=== PATIENT | male | born 1970 | race Caucasian/White ===

== ENCOUNTER → 2017-09-13 15:32 | Outpatient (CLI) | payer MEDICARE, SELFPAY ==
--- NOTE | 2017-09-13 16:02 | MRI_ITS ---
STUDY: MRI LEFT SHOULDER REASON FOR EXAM: Male, 46 years old. chronic pain, decreased rom TECHNIQUE: Standardized fat and water weighted pulse sequences were obtained in all 3 orthogonal planes. COMPARISON: MRI January 30, 2009, x-ray July 08, 2016 FINDINGS: There is a partial-thickness articular surface tear of the anterior supraspinatus tendon insertion. There is an interstitial tear of the mid and posterior tendon. Normal infraspinatus tendon. Normal subscapularis tendon. Normal teres minor tendon. Normal supraspinatus muscle. Normal infraspinatus muscle. Normal subscapularis muscle. Normal teres minor muscle. Normal glenohumeral articulation. Normal humeral head and visualized proximal humerus. Normal biceps labral complex. Normal intracapsular long biceps tendon. Normal labrum. Normal capsulo- ligamentous complex. Normal rotator interval. There is mild osteoarthritis of the acromioclavicular articulation. There is a Type I morphology (flat undersurface), with a neutral orientation. There is no subacromial-subdeltoid bursal fluid. Normal visualized coracohumeral and coracoacromial ligaments. Normal quadrilateral space. Normal axillary space. Normal deltoid muscle. Normal trapezius muscle. MRI/Upper Ext Joint Only(Routine) IMPRESSION: There are partial-thickness and interstitial tears of the supraspinatus tendon. There is mild acromioclavicular joint degenerative arthrosis. There is a type I acromion. Electronically Signed: Renee Kimball MD at 10:35 EDT , Service support ,
== END ==
PROVIDERS: Family Provider Family Medicine; PCP Family Medicine; Visit Provider Orthopaedic Surgery
DX: M75.42 Impingement syndrome of left shoulder (principal)
CPT/HCPCS: 73221

== ENCOUNTER 2018-09-13 20:29 | Inpatient (IN) | payer MEDICARE, MEDICAID, SELFPAY ==
[2018-09-13 20:29] VITALS: BP 133/85; PULSE 110; RESP 18; TEMP 37.2; O2SAT 99; BMI 28.7
--- NOTE | 2018-09-13 20:40 | EKG12_ITS ---
Test Reason : CHEST PAIN Blood Pressure : / mmHG Vent. Rate : 089 BPM Atrial Rate : 089 BPM P-R Int : 134 ms QRS Dur : 084 ms QT Int : 352 ms P-R-T Axes : 048 -02 063 degrees QTc Int : 428 ms Normal sinus rhythm with sinus arrhythmia Normal ECG Confirmed by BIANKA LEGGETT, AMIE ([id number]), editor farm journal ITALIA JORDAN ([id number]) on 09/15/2018 11:24:44 AM Referred By: Marcie London Confirmed By:AMIE CARLTON MD
[2018-09-13 21:14] LABS: Absolute Lymphocyte Count 1.54 X10^3/ul (0.83-4.51); Absolute Neutrophil Count 21.8 X10^3/uL (2.0-7.7); Basophil# 0.03 X10^3/uL; Basophil% 0.1 % (0-1); Differential Indicated SCAN CRITERIA MET; Eosinophil# 0.04 X10^3/uL; Eosinophils% 0.2 % (0-5); Hematocrit 52.6 % (40-54); Hemoglobin 17.6 g/dl (13.0-16.5); Lymphocyte # 1.54 X10^3/ul (4.0); Lymphocyte % 6.4 % (19-41); Mean Corp Hgb Conc 33.5 g/gl (32-36); Mean Corpuscular Hgb 30.4 pg (27.0-32.0); Mean Corpuscular Volume 90.8 fL (80-94); Mean Platelet Vol. 11.7 fl (6.2-12.0); Monocyte# 0.69 X10^3/uL; Monocyte% 2.9 % (0-10); Neutrophil # 21.75 X10^3/uL (2.7-7.7); Neutrophil % 89.9 % (47-70); POSITIVE COUNT NO; POSITIVE DIFFERENTIAL YES; POSITIVE MORPHOLOGY NO; Platelet Count 154 K/mm3 (150-450); RBC Distribution Width SD 42.4 fl (35.1-43.9); Red Blood Count 5.79 M/mm3 (4.6-6.2); White Blood Count 24.2 K/mm3 (4.4-11.0)
[2018-09-13 21:23] LABS: Anion Gap 12 (5-15); BUN 20 mg/dL (7-18); BUN/Creat Ratio 16.8 RATIO (10-20); Calcium,Total 9.2 mg/dL (8.5-10.1); Chloride 102 mmol/L (98-107); Creatinine, Serum 1.19 mg/dL (0.70-1.30); EST Glomerular Filtration Rate 70 mL/min (>60); Est Glom Filt Rate - Afr Amer 84 mL/min (>60); Estimated Creatinine Clearance 80.09 ml/min; Glucose 337 mg/dL (74-106); Potassium 4.3 mmol/L (3.5-5.1); Sodium Level 138 mmol/L (136-145)
[2018-09-13 21:46] LABS: Differential Comment SCANNED
--- NOTE | 2018-09-13 22:10 | RAD_ITS ---
STUDY: X-RAY CHEST REASON FOR EXAM: Male, 47 years old. Chest pain. TECHNIQUE: Portable chest. COMPARISON: None. FINDINGS: The lungs are clear and expanded. There is no demonstrated pleural abnormality. Normal size heart. Normal mediastinum and oseas. Normal visualized pulmonary arteries. Normal visualized aortic arch and descending thoracic aorta. Normal visualized thoracic spine. Normal visualized ribs, clavicles, and shoulders. There is no demonstrated abnormality of the visualized soft tissue structures of the upper abdomen. RAD/Chest 1 View (Portable) IMPRESSION: Normal x-ray examination of the chest. Electronically Signed: Teresa Patel MD at 22:39 EDT Tel , Service support ,
--- NOTE | 2018-09-13 22:18 | ED.VISSUMM ---
- ER Visit Summary Date of Service: 09/13/18 Chief Complaint: [Chest pain] History of Present Illness: The patient is a 47 M [presents the emergency department complaint chest pain off and on for several months. Patient states he has a history of some chronic neck pain issues and he is medicated with Dilaudid and Doxy Contin at home. Patient has had intermittent spells that he has chest heaviness with radiation into the neck and jaw as well as down both arms. Patient at times will be diaphoretic and nauseated with it. Patient does have a history of diabetes, hypercholesterolemia, and significant family history in that his father had an RI in his 30s. Patient also with history of prior A. fib. He denies recent travel or surgery. Recently patient had started a Medrol Dosepak for his neck pain.] Physical Examination: [HEENT-PERRLA, EOMI. Cranial nerves II through XII grossly intact. TMs clear. Mucous membranes moist. No adenopathy. Cardiovascular-regular rate and rhythm without murmur or ectopy Lungs-clear to auscultation, chest wall stable without crepitus or subcu emphysema Abdomen-normoactive bowel sounds, soft, nontender, no rebound or rigidity, no peritoneal signs. Extremities-intact ?4, normal range of motion, normal pulses, atraumatic] Test Results: [EKG on arrival showed sinus rhythm with a ventricular rate of 89 bpm with no acute I segment changes. CBC with differential showed a white blood cell count of 24,000, hemoglobin 17.6, hematocrit 53, platelets 154. History is unremarkable. Glucose was 337. Troponin is 0.218. Chest x-ray shows nothing acute.] Emergency Department Course and Treatment: [Patient was given aspirin and after discussion with Dr. Martinez, patient was started on heparin drip.] Treatment Plan: [Admit] Disposition: [Admit] Impression: [Non-ST elevation RI Chest pain Hyperglycemia] This note was generated with [employer] dictation software. It may contain incorrect words, spelling, and punctuation that were not noted in review of the chart prior to signing ED Disposition - Plan for ED Patient: Referrals: Debra Fabian [Primary Care Provider] -
--- NOTE | 2018-09-13 22:22 | ED.DCSUM_ITS ---
- ER Visit Summary Date of Service: 09/13/18 Chief Complaint: [Chest pain] History of Present Illness: The patient is a 47 M [presents the emergency department complaint chest pain off and on for several months. Patient states he has a history of some chronic neck pain issues and he is medicated with Dilau did and Doxy Contin at home. Patient has had intermittent spells that he has chest heaviness with radiation into the neck and jaw as well as down both arms. Patient at times will be diaphoretic and nauseated with it. Patient does have a history of diabetes, hypercholesterolemia, and significant family history in that his father had an AZ in his 30s. Patient also with history of prior A. fib. He denies recent travel or surgery. Recently patient had started a Medrol Dosepak for his neck pain.] Physical Examination: [HEENT-PERRLA, EOMI. Cranial nerves II through XII g rossly intact. TMs clear. Mucous membranes moist. No adenopathy. Cardiovascular-regular rate and rhythm without murmur or ectopy Lungs-clear to auscultation, chest wall stable without crepitus or subcu emphysema Abdomen-normoactive bowel sounds, soft, nontender, no rebound or rigidity, no peritoneal signs. Extremities-intact ?4, normal range of motion, normal pulses, atraumatic] Test Results: [EKG on arrival showed sinus rhythm with a ventricular rate of 89 bpm with no acute I segment changes. CBC with differential showed a white blood cell count of 24,000, hemoglobin 17.6, hematocrit 53, platelets 154. History is unremarkable. Glucose was 337. Troponin is 0.218. Chest x-ray shows nothing acute.] Emergency Department Course and Treatment: [Patient was given aspirin and after discussion with Dr. Martinez, patient was started on heparin drip.] Treatment Plan: [Admit] Disposition: [Admit] Impression: [Non-ST elevation AZ Chest pain Hyperglycemia] This note was generated with [employer] dictation software. It may contain incorrect words, spelling, and punctuation that were not noted in review of the chart prior to signing ED Disposition - Plan for ED Patient: Referrals: Debra Fabian [Primary Care Provider] -
--- NOTE | 2018-09-13 22:22 | PCM.HP.STD ---
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 use Diabetes mellitus complication status: with unspecified complications Qualified Code(s): E11.8 - Type 2 diabetes mellitus with unspecified complications (7) HLD (hyperlipidemia) Status: Chronic Qualifiers: Hyperlipidemia type: pure hypercholesterolemia Qualified Code(s): E78.00 - Pure hypercholesterolemia, unspecified; E78.0 - Pure hypercholesterolemia History of Present Illness Date of Admission: 09/13/18 Chief Complaint: Chest pain The patient is a 47 y/o M w/ PMHx: Diabetes mellitus type II, HTN, HLD, History of PAF not anticoagulated, Chronic back pain following w/ pain management, History of AMITA not on CPAP w/ history of improvement following weight loss, Tobacco use who presents to the [facility] ED on 09/13/18 with ~ 2 month history of progressively worsening in both intensity and frequency intermittent chest pressure/heaviness episodes, independent of activity, midsternal with radiation to the BL UE and jaw with associated diaphoresis, nausea without emesis with two episodes on day of ED presentation, rated 8-9/19 in severity. Upon evaluation patient noted current discomfort 4-5/10. He had recently been evaluated per his physician as he felt his discomfort might be secondary to acute on chronic back pain and was placed on a Medrol Dosepak. Additional ED work-up included T 99, heart rate 110, BP 133/85, respiratory rate 18, 99% on room air, CBC with WBC 24.2, heme globin 17.6, platelet 154 with left shift with as noted recent steroid Medrol Dosepak, unremarkable coags, BMP remarkable for BUN/Cr 20/1.19, glucose 337, troponin 0.218, EKG with sinus rhythm with no acute evidence of ischemia with repeat EKG similar, chest x-ray with no acute cardiopulmonary findings. Given family history, age and presentation of concern cardiology was consulted per the ED for UA, NSTEMI and requested heparin drip be initiated. Past Medical History Past Medical History (Chronic Problems): Chronic Problems (Last Reviewed 09/15/17 @ 12:58 by Sarah Ordonez) Anxiety and depression (Chronic) Tobacco use (Chronic) Benign essential HTN (Chronic) Chronic pain (Chronic) Depression (Chronic) DM2 (diabetes mellitus, type 2) (Chronic) HLD (hyperlipidemia) (Chronic) Medical History: Medical History (Last Reviewed 09/15/17 @ 12:58 by Sarah Ordonez) Herniated disc back Allergies pregabalin [From Lyrica] Adverse Reaction (Verified 09/13/18 20:31) Itching Home Medications: Ambulatory Orders Medication Instructions Recorded Duloxetine Hcl [Cymbalta] 120 mg PO DAILY 02/17/16 Hydromorphone HCl [Dilaudid] 4 mg PO Q6H 02/17/16 Oxycodone HCl [Oxycontin] 20 mg PO BID 02/17/16 Sertraline HCl [Zoloft] 200 mg PO DAILY 02/17/16 Tiagabine HCl [Gabitril] 4 mg PO DAILY 02/17/16 Tizanidine HCl [Zanaflex] 8 mg PO QHS 02/17/16 aripiprazole 2 mg tablet 2 mg PO ONCE 07/12/17 lisinopril 10 mg tablet 10 mg PO QDAY 07/12/17 metformin 500 mg tablet 1,000 mg PO BID 07/12/17 Atorvastatin Calcium [Lipitor] 40 mg PO DAILY 09/14/18 Magnesium 250 mg PO DAILY 09/14/18 Tim Red 09/14/18 Multivitamin with Minerals 1 each PO DAILY 09/14/18 [Multiple Vitamin] Omeprazole [Prilosec] 20 mg PO DAILY 09/14/18 Surgical History: Surgical History (Last Reviewed 09/15/17 @ 12:58 by Sarah Ordonez) H/O arthroscopic knee surgery Z98.890 x3 left knee s/p back Surgical History: - - Lumbar back surgery, bilateral knee arthroscopic surgery with 3 left and one right surgery performed. Psychiatric History: Anxiety, Depression Lives: Spouse/ Significant Other, With Family Smoking Status: Current every day smoker - 1-1.5 pack cigarette tobacco usage daily. Tobacco Use: Cigarettes Alcohol: Occasional Drugs: None - *Family History Maternal Family History: Family History (Last Reviewed 09/15/17 @ 12:58 by Sarah Ordonez) Other Arthritis History Items: - - Patient notes a maternal family history of HD. Paternal Family History: Family History (Last Reviewed 09/15/17 @ 12:58 by Sarah Ordonez) Other Arthritis History Items: - - Father with a history of esophageal cancer. Review of Systems Constitutional: Reports: Anorexia, Malaise, Weakness, Fatigue. Denies: Chills, Fever, Weight Change HEENT: Denies: Head Aches, Sinus Congestion, Sinus Drainage Cardiovascular: Reports: Chest Pain, Chest Pressure, Heaviness. Denies: Chest Tightness, Edema, Light Headedness, Orthopnea, Palpitations, Syncope Respiratory: Denies: Cough, Shortness of Breath, Shortness of breath at rest, Shortness of breath upon exertion, Sputum production Gastrointestinal: Reports: Nausea. Denies: Abdominal Pain, Vomiting Genitourinary: Denies: Dysuria Musculoskeletal: Reports: Back Pain, Neck Pain. Denies: Joint Pain, Joint Tenderness Skin: Denies: Rash, Wounds Neurological: Denies: Numbness, Tingling, Focal weakness Psychiatric: Reports: Anxiety, Depression. Denies: Homicidal Ideations, Suicidal Ideations Hematologic/ Lymphatic: Denies: Easy Bruising, Easy Bleeding VTE Information - Inpt Only VTE Present on Admission: No VTE Mechan Device Prophylaxis: SCD's VTE Pharm Prophylaxis ordered?: Yes Patient Problems: Active and Suspected Problems (Last Reviewed 09/15/17 @ 12:58 by Sarah Ordonez) NSTEMI (non-ST elevated myocardial infarction) (Acute) Unstable angina (Acute) Subjective: Seated upright in the ED bed, fatigued appearing, flushed, diaphoretic, current chest discomfort 4-5/10. Objective: Physical Examination: General: awake, alert, oriented x 3 and cooperative, seated upright in the ED bed, unwell appearing, diaphoretic, ongoing chest discomfort although lessened. Skin: normal color, turgor, no icterus, cyanosis. HEENT: AT/NC, EOMI, PERRLA, mildly dry MM, no carotid bruits or JVD noted. Lungs: CTA bilaterally, moderate effort, mild decrease BL bases, no rales, ronchi or wheezing. Heart: Mildly tachycardic with regular rhythm; no gallop, rub audible. Abdomen: soft, NTTP, ND, normal BS, no HSM. Extremities: no cyanosis, clubbing, or edema. Neurological: patient awake, alert, oriented x 3; cognitive function intact; pupils equally reactive to light and accomodation; cranial nerves II-XII grossly normal, moving all 4 extremities, no focal deficits, strength moderately to severely globally decreased secondary to acute presentation. Psychiatric: affect appears fatigued, no acute evidence of depressive or anxiety feelings. - Physical Exam Vital Signs Temp Pulse Resp BP Pulse Ox 99.0 F 110 H 18 133/85 H 99 09/13/18 20:29 09/13/18 20:29 09/13/18 20:29 09/13/18 20:29 09/13/18 20:29 Oxygen Delivery Method Room Air Weight: 200 lb Body Mass Index (BMI) 28.7 Laboratory Tests Past 24 Hrs 09/13/18 09/13/18 20:37 20:37 WBC 24.2 H RBC 5.79 Hgb 17.6 H Hct 52.6 MCV 90.8 MCH 30.4 MCHC 33.5 RDW 13.0 RDW Differential 42.4 Plt Count 154 MPV 11.7 Immature Gran % (Auto) 0.500 Neut % (Auto) 89.9 H Lymph % (Auto) 6.4 L Hardy % (Auto) 2.9 Eos % (Auto) 0.2 Baso % (Auto) 0.1 Absolute Neuts (auto) 21.8 H Absolute Lymphs (auto) 1.54 Total Counted Not Reportable Differential Comment SCANNED Sodium 138 Potassium 4.3 Chloride 102 Carbon Dioxide 24.0 Anion Gap 12 BUN 20 H Creatinine 1.19 Estim Creat Clear Calc 80.09 Est GFR (MDRD) Af Amer 84 Est GFR (MDRD) Non-Af 70 BUN/Creatinine Ratio 16.8 Glucose 337 H Calcium 9.2 Troponin I 0.218 H Assessment/Plan All Active Problems (Last Reviewed 09/15/17 @ 12:58 by Sarah Ordonez) NSTEMI (non-ST elevated myocardial infarction) (Acute) Unstable angina (Acute) The patient is a 47 y/o M w/ PMHx: Diabetes mellitus type II, HTN, HLD, History of PAF not anticoagulated, Chronic back pain following w/ pain management, History of AMITA not on CPAP w/ history of improvement following weight loss, Tobacco use who presents to the [facility] ED on 09/13/18 with ~ 2 month history of progressively worsening in both intensity and frequency intermittent chest pressure/heaviness episodes, independent of activity, midsternal with radiation to the BL UE and jaw with associated diaphoresis, nausea without emesis with two episodes on day of ED presentation, rated 8-9/19 in severity. (1) Chest Pain w/ Acute NSTEMI: ED work-up included T 99, heart rate 110, BP 133/85, respiratory rate 18, 99% on room air, CBC with WBC 24.2, heme globin 17.6, platelet 154 with left shift with as noted recent steroid Medrol Dosepak, unremarkable coags, BMP remarkable for BUN/Cr 20/1.19, glucose 337, troponin 0.218, EKG with sinus rhythm with no acute evidence of ischemia with repeat EKG similar, chest x-ray with no acute cardiopulmonary findings. Will admit to PCU, maintain on a monitored bed, continue serial cardiac enzymes and EKGs. Obtain magnesium level upon admission. Continue heparin drip initiated per ED per cardiology request. Continue medical management w/ asa, ACEI, add low dose BB, change to high dose atorvastatin w/ AM FLP. Cardiology consulted, expect AM cardiac catheterization. Maintain NPO after midnight, IVFs. ASA, NG, morphine. (2) Chronic pain syndrome: Patient has chronic back pain, continue on home Cymbalta, oral Dilaudid as well as Aloxi Contin regimen with as needed IV breakthrough for acute presentation #1. (3) Hypertension: Continue home regimen including lisinopril, low-dose Coreg added, PRN hydralazine. (4) Hyperlipidemia: Transition to high-dose atorvastatin, FLP in AM. (5) Diabetes mellitus type II: Hold oral home regimen, HgA1c pending, ADA diet until NPO status, accu checks w/ ISS, attrition consulted for education and teaching. (6) Anxiety and Depression: We will continue home omeprazole, duloxetine, sertraline regimen. (7) Tobacco Abuse: Encouraged cessation, inpatient consultation per RT, defer nicotine replacement given acute presentation #1. (8) Hx AMITA: Not on CPAP or BiPAP at night, notes improved following weight loss. (9) GERD: PPI. (10) DVT Prophylaxis: SCDs, heparin drip per cardiology direction. Code Visit Inpatient E&M: 80686 Init Hosp L3
--- NOTE | 2018-09-13 22:47 | EKG12_ITS ---
Test Reason : CHEST PAIN Blood Pressure : / mmHG Vent. Rate : 106 BPM Atrial Rate : 106 BPM P-R Int : 134 ms QRS Dur : 078 ms QT Int : 344 ms P-R-T Axes : 052 012 032 degrees QTc Int : 456 ms Sinus tachycardia Septal infarct , age undetermined Abnormal ECG Confirmed by BIANKA LEGGETT, AMIE ([id number]), supervising editor trailer ITALIA JORDAN ([id number]) on 09/15/2018 11:23:25 AM Referred By: Marcie London Confirmed By:AMIE CARLTON MD
[2018-09-13] MEDS: Aspirin 81 MG TAB.CHEW 324 MG PO (22:54)
[2018-09-13 22:55] VITALS: BP 120/92; PULSE 76; PULSE 96; RESP 17; O2SAT 97
[2018-09-13 23:01] VITALS: BP 120/78; PULSE 105
[2018-09-13 23:03] VITALS: BP 120/78; PULSE 102; RESP 16; O2SAT 95
[2018-09-13] MEDS: HEPARIN/D5w 25,000 UNITS 25,000 UNITS/250 ML IV.SOLN. 12 UNITS IV (23:05)
[2018-09-13] MEDS: Heparin Injection (Vial) 5,000 UNIT/ML VIAL 6000 UNIT IV (23:06)
[2018-09-13 23:07] VITALS: BP 117/55; PULSE 100
[2018-09-13 23:13] LABS: Prothrombin Time (Protime)PT. 12.5 SECONDS (11.7-14.9)
[2018-09-13 23:14] LABS: Partial Thromboplast Time 27.5 Seconds (24.1-36.2)
[2018-09-13 23:57] VITALS: PULSE 76
[2018-09-14] VITALS (29 sets, daily range): BP systolic 105–128; BP diastolic 56–81; PULSE 66–104; RESP 10–19; TEMP 36.2–36.9; O2SAT 2–99; BMI 28.3; BMI 28.7
--- NOTE | 2018-09-14 00:04 | EKG12_ITS ---
Test Reason : AM EKG Blood Pressure : / mmHG Vent. Rate : 104 BPM Atrial Rate : 104 BPM P-R Int : 000 ms QRS Dur : 130 ms QT Int : 358 ms P-R-T Axes : 000 114 -31 degrees QTc Int : 470 ms Atrial fibrillation with rapid ventricular response Left bundle branch block Lateral infarct , age undetermined T wave abnormality, consider inferior ischemia Abnormal ECG When compared with ECG of 14-SEP-2018 00:27, MANUAL COMPARISON REQUIRED, DATA IS UNCONFIRMED Confirmed by FESTUS DILLARD ([id number]), editor farm journal DAVE JERRY ([id number]) on 09/19/2018 5:12:42 PM Referred By: Marcie London Confirmed By:FESTUS DILLARD
[2018-09-14 00:26] LABS: Magnesium 2.1 mg/dL (1.6-2.6)
[2018-09-14] MEDS: HYDROmorphone 1 MG/ML Syringe IV ×4 (00:37→10:55)
[2018-09-14] MEDS: 0.9% Normal Saline 1,000 ML 100 ML IV ×2 (00:52→10:45)
--- NOTE | 2018-09-14 01:52 | NURSING ---
pts trop came back 2.3 will notify the hospitalist. pt asking for nitro, c/o chest heaviness, rating it a 5/10
[2018-09-14 03:35] LABS: Hematocrit 48.5 % (40-54); Hemoglobin 16.3 g/dl (13.0-16.5); Mean Corp Hgb Conc 33.6 g/gl (32-36); Mean Corpuscular Hgb 30.2 pg (27.0-32.0); Mean Corpuscular Volume 89.8 fL (80-94); Mean Platelet Vol. 11.4 fl (6.2-12.0); Platelet Count 145 K/mm3 (150-450); RBC Distribution Width CV 12.9 % (11.6-14.6); RBC Distribution Width SD 42.3 fl (35.1-43.9)
[2018-09-14 03:48] LABS: Scan Indicated on CBC? Y/N NO
[2018-09-14 04:30] LABS: ALB/GLOB Ratio 1.2 RATIO (0.9-2.4); AST(SGOT) 52 U/L (15-37); Alanine Aminotransfer ALT/SGPT 33 U/L (16-61); Albumin, Serum 3.6 g/dL (3.2-5.0); Alkaline Phosphatase 110 U/L (45-117); Anion Gap 11 (5-15); BUN 19 mg/dL (7-18); BUN/Creat Ratio 20.8 RATIO (10-20); Calcium,Total 8.8 mg/dL (8.5-10.1); Chloride 106 mmol/L (98-107); Cholesterol 153 mg/dL (200); Creatinine, Serum 0.92 mg/dL (0.70-1.30); EST Glomerular Filtration Rate 94 mL/min (>60); Est Glom Filt Rate - Afr Amer 114 mL/min (>60); Estimated Creatinine Clearance 103.59 ml/min; Glucose 325 mg/dL (74-106); High Density Lipoprotein 32 mg/dL; Potassium 4.4 mmol/L (3.5-5.1); Protein, Total 6.6 g/dL (6.4-8.2); Sodium Level 139 mmol/L (136-145); Triglycerides 245 mg/dL; Very Low Density Lipoprotein 49 mg/dL (5-40)
[2018-09-14] MEDS: Nitroglycerin Oint 1 INCH PACKET TRANSDERM. ×4 (05:09→23:52)
[2018-09-14 05:25] LABS: Partial Thromboplast Time 56.9 Seconds (24.1-36.2)
--- NOTE | 2018-09-14 05:55 | ECHOD_ITS ---
Reason For Study: CP Procedure This was a 2D Doppler, Color Flow transthoracic echocardiogram. Exam performed portable in ICU/CCU. Left Ventricle Mildly dilated left ventricle. The estimated ejection fraction is 45-50 %. Normal diastology for age. Mid-Anterior : Mildly hypokinetic. Mid-anteroseptal : Mildly hypokinetic. Anterior Parker : Mildly hypokinetic. Right Ventricle Normal size and thickness. Normal systolic function. Atria Normal left atrium. Normal right atrium. Normal atrial septum. Mitral Valve The mitral valve is structurally normal. No prolapse or stenosis seen. Tricuspid Valve Normal tricuspid valve. Trivial tricuspid valve insufficiency. Right ventricular systolic pressure estimated to be 27 mmHg. Aortic Valve Normal aortic valve. Trisinus/trileaflet aortic valve. Pulmonic Valve Normal pulmonic valve. Trivial pulmonic valve insufficiency. Great Vessels Normal aortic root. Normal arch. Normal inferior vena cava. Inferior vena cava collapse with sniff. Pericardium/Pleural No pericardial effusion. MMode/2D Measurements & Calculations LVIDd: 5.2 cm IVSd: 1.6 cm LA dimension: 3.3 cm LVIDs: 4.0 cm LVPWd: 1.1 cm RVDd: 3.5 cm FS: 21.8 % LAV(MOD-bp): 65.3 ml LVAd ap4: 44.8 cm2 SV(MOD-sp4): 80.4 ml LAV(MOD-bp) Indexed: 31.5 ml/m2 EDV(MOD-sp4): 171.5 ml LAV(MOD-sp2): 65.6 ml EDV(sp4-el): 180.8 ml LAV(MOD-sp4): 60.2 ml LVAs ap4: 30.5 cm2 ESV(MOD-sp4): 91.1 ml ESV(sp4-el): 94.8 ml EF(MOD-sp4): 46.9 % EF(sp4-el): 47.6 % SV(sp4-el): 86.0 ml LA A4 area: 20.7 cm2 RA A4 area: 16.1 cm2 Time Measurements MV dec time: 0.23 sec Doppler Measurements & Calculations MV E max arun: 77.4 cm/sec Lat Peak E' Arun: 9.7 cm/sec Med Peak E' Arun: 9.3 cm/sec MV A max arun: 52.7 cm/sec E/E' lat: 7.9 E/E' med: 8.3 MV E/A: 1.5 MV V2 max: 82.3 cm/sec MV P1/2t max arun: 82.3 cm/sec Ao V2 max: 114.7 cm/sec MV max P.7 mmHg MV P1/2t: 96.5 msec Ao max P.3 mmHg MV V2 mean: 48.1 cm/sec Ao V2 mean: 76.7 cm/sec MV mean P.1 mmHg MV dec slope: 249.8 cm/sec2 Ao mean P.7 mmHg MV V2 VTI: 26.4 cm MVA(P1/2t): 2.3 cm2 Ao V2 VTI: 24.5 cm LV V1 max: 85.3 cm/sec PA V2 max: 95.3 cm/sec PI end-d arun: 124.2 cm/sec LV V1 max P.9 mmHg LV V1 mean P.4 mmHg LV V1 mean: 55.4 cm/sec LV V1 VTI: 19.0 cm TR max arun: 235.5 cm/sec TR max P.2 mmHg Interpretation Summary Mildly dilated left ventricle. The estimated ejection fraction is 45-50 %. Normal diastology for age. Mid-Anterior : Mildly hypokinetic Mid-anteroseptal : Mildly hypokinetic Anterior Parker : Mildly hypokinetic Trivial tricuspid valve insufficiency. Right ventricular systolic pressure estimated to be 27 mmHg. There is no comparison study available. Ordering Physician: Marcie London Referring Physician: Marcie London Performed By: Sumit Winslow RCS
--- NOTE | 2018-09-14 05:55 | EKG12_ITS ---
Test Reason : CP ADMISSION Blood Pressure : / mmHG Vent. Rate : 085 BPM Atrial Rate : 085 BPM P-R Int : 126 ms QRS Dur : 086 ms QT Int : 386 ms P-R-T Axes : 044 020 036 degrees QTc Int : 459 ms Normal sinus rhythm with sinus arrhythmia Normal ECG When compared with ECG of 13-SEP-2018 23:17, MANUAL COMPARISON REQUIRED, DATA IS UNCONFIRMED Confirmed by FESTUS DILLARD ([id number]), writer editor DAVE JERRY ([id number]) on 09/19/2018 5:12:16 PM Referred By: Marcie London Confirmed By:FESTUS DILLARD
[2018-09-14 07:21] LABS: Bedside Glucose 362 mg/dL (70-110)
[2018-09-14 07:22] LABS: Bacteria 0 SEEN /hpf (None Seen); Mucous, Urine 0 SEEN /hpf (<or=2+); Red Blood Cells-Urine 0 SEEN /hpf (0-5); White Blood Cells 0 SEEN /hpf (0-5)
[2018-09-14] MEDS: Aspirin E.C. 81 MG Tablet PO (07:38)
[2018-09-14] MEDS: Carvedilol 3.125 MG TABLET PO ×2 (07:43→12:15)
[2018-09-14] MEDS: TICAGRELOR 90 MG TABLET 180 MG PO (07:43)
[2018-09-14] MEDS: HYDROmorphone 2 MG TABLET 4 MG PO ×3 (08:08→23:51)
--- NOTE | 2018-09-14 08:13 | NURSING ---
Called and spoke with Eriberto in curb and gutter laborer at [phone] - spoke with Raymundo face to face at this time.
[2018-09-14 08:16] LABS: Color, Urine Yellow (Yellow); Glucose, Dipstick 1000 mg/dl (Normal); Ketone-Dipstick 50 mg/dl (Negative); Leukocyte Esterase-Dipstick Negative /ul (Negative); Nitrite-Dipstick Negative (Negative); Occult Blood-Urine Negative /ul (Negative); Protein-Dipstick Negative (Negative); Urine Bilirubin Dipstick Negative (Negative); Urine Clarity Sl. Cloudy (Clear); Urine Urobilinogen Normal (Normal)
[2018-09-14 08:51] LABS: Squamous Epithelial Cells - UA 0-5 SEEN /hpf (0-5)
--- NOTE | 2018-09-14 09:07 | CASEMGMT ---
According to the [employer] website, the following are in-network tertiary facilities: [facility], [facility], [facility], and . Marielos STRATTON CM
[2018-09-14 10:11] LABS: ACT Activated Clotting Time 98 sec (74-137)
[2018-09-14 10:11] LABS: ACT Activated Clotting Time 246 sec (74-137)
--- NOTE | 2018-09-14 10:13 | CL.I_ITS ---
Patient Name: REJI CORTES Study Date: 09/14/2018 Performing: Gerber Marshall MD Ht: 70.07 inches 178 cm : 1970 Wt: 198.42 lbs 90 kg Age: 47 Gender: male BSA: 2.08 PROCEDURE(S) PERFORMED OY86-PEF/COR/LV SS35-IEA W OR WO PTCA, SINGLE CORONARY ARTERY CLINICAL PROFILE AND CO-MORBIDITIES Patient presents with NSTEMI for urgent cardiac cath Indications: New Onset Angina <= 2 months, Suspected CAD, Cardiac Arrythmia Heart Failure: None Stress/Imaging Stress/Image Study Performed: No Angina Classification Anginal Classification w/in 2 Weeks: CCS II CAD Presentations: Unstable angina. Non-STEMI. Symptom onset Date/Time: 09/13/2018 17:00:00 Time Estimated Comorbidities/Risk Factors: Current/Recent Smoker (< 1year) Hypertension Dyslipidemia Diabetes Mellitus: Diabetes Therapy: Oral Diabetes Mellitus: Diabetes Therapy: Insulin CONCLUSIONS Segmented LV systolic dysfunction- Mild Double vessel CAD of the DIAG and LAD Non obstructive coronary arteries Successful PTCA/VENANCIO mid DIAG#1 with a 2.25 x 24 Promus Synergy, post dilated with a 2.5 x 8 NC Balloo n; 90%-->0-%, no dissection. Unable to wire mid LAD despite trying multiple wires. Lesion is clustered at a bifurcation with mikey ral septals and due to possibility of accessing false lumen and reaching iv contrast dye threshold, n o further attempts were made to cannulate with a wire. MID LAD lesion looked identical to original cath; no perforation and pt is completely asymptomatic. Will proceed with medical management with asa/brilinta and xeralto for PAF and allow vesselt to heal. if pt has recurrent CP or anterior ischemia, will consider another PCI attempt to mid LAD with new IV dye load. RECOMMENDATIONS Referred for immediate PCI Highly recommend quitting all tobacco products Follow up with primary registered radiographer Risk factor modification ASA Indefinitley Plavix for at least 12 months Routine post interventional care Refer for Outpatient Cardiac Rehab Manual sheath removal per protocol Follow up with Dr. Marshall Medical management of mid RCA lesion. Successful Mynx closure to RFA. DESCRIPTION OF PROCEDURE The patient arrived to the procedure lab. The risks and benefits of the procedure as well as a full d escription of our services here and lack of surgical backup were fully explained to the patient and/o r their significant other prior to the catheterization. The Timeout was completed, verifying the keron ect patient and procedure. The patient's procedural site was prepped and draped in the usual fashion. Local anesthetic was given subcutaneously to right groin region with Lidocaine 2%. Using a modified Seldinger technique, arterial access was obtained via the right femoral artery, a 4Fr sheath was inse rted. Left Coronary Artery selective angiography was performed in multiple views using a 4 Fr. JL5 c atheter. Right Coronary Artery selective angiography was then performed in multiple views using a 4 F r. 3DRC catheter. Left Ventriculography was performed in GRIMES projection using a 4 Fr. Pigtail cathete r. LV to AO pullback pressures were then recordedThe images were reviewed and options discussed. A decision was then made to proceed with an Intervention, IVUS or other adjunct procedure. Arterial sheath was exchanged for a 6 Fr Sheath. EBU 3.75 Guide catheter was inserted and engaged into the LCA. BMW Guide wire was advanced to the 1st Diagonal. BMW #2 Guide wire was advanced to the LAD. 2x12 Emerge Balloon catheter was inserted. Runthrough Guide wire was inserted as a dennis wire R unthrough Guide wire was advanced to the LAD. 2x12 Emerge Balloon catheter was inserted. Balloon cath eter was advanced across lesion in the first diagonal, mid. PTCA balloon inflated at 8 atms for 10 se cs. PTCA balloon inflated at 8 atms for 10 secs. Angiogram performed post balloon dilatation. 2.25x16 Synergy Drug Eluting stent was inserted. Drug Eluting stent was advanced across the lesion in the fi rst diagonal, mid. Drug Eluting stent was removed intact 2.25x24 Synergy Drug Eluting stent was inser stephen. Drug Eluting stent was advanced across the lesion in the first diagonal, mid. 2.5x8 NC Emerge Ba lloon catheter was inserted. Balloon catheter was advanced across lesion in the first diagonal, mid. Angiogram performed post stent deployment. Contrast was injected through the sheath an d the Right Iliac and Femoral artery were assessed for possible closure device. The arterial sheath was pulled and a Mynx closure device was deployed for hemostasis CORONARY ANGIOGRAPHY DOMINANCE: Right Dominant LEFT HEART ASSESSMENT Left Ventricular Ejection Fraction: by LV Gram 55 % Depressed Left Ventricular systolic function LVEDP: 3 mmHg Normal Left Ventricular End Diastolic Pressure Anterior Hypokinesis - Mild LEFT MAIN: 20 ostial % Stenosis LEFT ANTERIOR DECENDING ARTERY: MID LAD: 60 with ulcerated plaque at bifurcation of DIAG#1 % Stenosis DIAGONAL 1: Mid - 90 % Stenosis, Proximal - Mild luminal irregularities less than 30% SEPTAL: and due to possibility of accessing false lumen and reaching iv contrast dye threshold, no f urther attempts were made to cannulate with a wire. CIRCUMFLEX ARTERY: Angiographically normal RIGHT CORONARY ARTERY: MID RCA: Moderate luminal irregularities up to 50% RT PDA: Proximal - Mild luminal irregularities less than 30% INTERVENTION INFORMATION LESION SITE: 1st Diagonal (Mid) Lesion Complexity: High/C, lesion at bifurcation: No, thrombus present: No, culprit lesion: Yes Pre Stenosis: 90 % Pre intervention CONCHITA flow: 2 PROCEDURE: Drug Eluting Stent with pre and post dilatation Post Stenosis: 0 % Post intervention CONCHITA flow: 3 Lesion Devices: Pathak .014 BMW Aurora Straight 190cm Medtronic 6 Fr EBU3.75 100cm Guide Catheter Gerry Sci EMERGE MR 2.00x12 BALLOON Gerry Sci Synergy MR VENANCIO 2.25x16 Gerry Sci Synergy MR VENANCIO 2.25x24 Gerry Sci NC EMERGE MR 2.50x08 BALLOON LESION SITE: LAD (Mid) Lesion Devices: Medtronic 6 Fr EBU3.75 100cm Guide Catheter Pathak .014 BMW Aurora Straight 190cm Terumo .014 Runthrough Extra Floppy 180cm straight COMPLICATIONS No Complications PROCEDURE MEDICATIONS Versed 1 mg IV Oxygen: 2 L/min via nasal cannula Heparin 6000 unit(s) IV 09/14/2018 08:59:38 Heparin 4000 unit(s) IV 09/14/2018 09:29:44 Nitro 200 mcg IC 09/14/2018 09:00:57 Nitro 200 mcg IC 09/14/2018 09:00:57 Nitro 200 mcg IC 09/14/2018 09:34:07 SUMMARY OF HEMODYNAMIC DATA Time AIR REST ECG 08:40:44 AO 93/62 (75) SA 08:49:23 LV 112/-15, 3 08:57:05 LV 94/-13, 0 08:57:11 LVp 118/-14, 1 08:57:19 AOp 101/60 (77) 08:57:24 AO 76/47 (57) 09:01:50 Signed By Gerber Marshall MD On 09/14/2018 10:12:41 Gerber Marshall MD
--- NOTE | 2018-09-14 10:37 | EKG12_ITS ---
Test Reason : POST PCI Blood Pressure : / mmHG Vent. Rate : 074 BPM Atrial Rate : 074 BPM P-R Int : 132 ms QRS Dur : 084 ms QT Int : 402 ms P-R-T Axes : 068 064 047 degrees QTc Int : 446 ms Sinus rhythm with sinus arrhythmia with occasional Premature ventricular complexes Otherwise normal ECG No previous ECGs available Confirmed by FESTUS DILLARD ([id number]), deputy editor in chief DAVE JERRY ([id number]) on 09/19/2018 5:09:23 PM Referred By: Marcie London Confirmed By:FESTUS DILLARD
--- NOTE | 2018-09-14 10:49 | NURSING ---
Called report to Nithya in ICU at [phone] - direct line given
--- NOTE | 2018-09-14 11:32 | CON.PCM_ITS ---
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 Diabetes mellitus complication status: with unspecified complications Qualified Code(s): E11.8 - Type 2 diabetes mellitus with unspecified complications (6) HLD (hyperlipidemia) Status: Chronic Qualifiers: Hyperlipidemia type: pure hypercholesterolemia Qualified Code(s): E78.00 - Pure hypercholesterolemia, unspecified; E78.0 - Pure hypercholesterolemia Reason for Consult Date of Consultation: 09/14/18 Reason for Consultation: Unstable angina, non-STEMI, coronary artery disease, hypertension, hyperlipidemia, paroxysmal atrial fibrillation History of Present Illness: The patient is a 47 year old M, with a history of diabetes type 2, obstructive sleep apnea, hypertension, hypercholesterolemia, poor medical compliance, positive smoking history currently with a total of around [id number] history quitting several years ago and then restarting. He has no known coronary history in the past. The patient states that about 2 months ago he began noticing worsening exertional chest pain, but felt it is most likely due to his left shoulder rotator cuff issue. Over the last week or so the patient has complained of midsternal chest pain radiating up into his bilateral jaw, as well as associated shortness of breath and diaphoresis. A proximally 5 PM last evening, while the patient was doing some minimal exertion he developed midsternal chest pain which he described as an 8 out of 10 in severity. This appeared to radiate to both jaws, and had associated shortness of breath. The patient sought medical attention at [facility] where an EKG was performed which showed normal sinus rhythm, no acute changes. His initial troponin was 0. 218. The patient was treated with nitroglycerin paste, baby aspirin, and IV heparin. Patient symptoms improved but not completely resolved. He did have a transient episode of atrial fibrillation with rate dependent left bundle branch block which the patient was not aware of. He does have a history of atrial fibrillation but is not on anticoagulation. Patient's peak troponin increased to 11.0, and the patient was brought to the [facility] for a diagnostic coronary angiogram. This demonstrated a critical 90% stenosis in the midportion of a moderate size diagonal #1, as well as a hazy possibly significant mid LAD stenosis at the bifurcation of the diagonal #1. Patient underwent successful angioplasty and drug-eluting stenting to the mid diagonal #1 with a 2.25 ex-24 Promus, postdilated proximally with a 2.5 mm balloon. Despite multiple attempts with multiple wires to try and cannulate the mid LAD, we were unsuccessful in wire cannulation. This was most likely a a result of the bifurcating nature of the vessel, as well as possible entanglement in the ruptured plaque. At the end of the procedure the patient had CONCHITA-3 flow, was chest pain-free, and no appreciable improvement or worsening of the stenosis in the mid LAD. As we reached IV contrast dye low threshold, and out of concern of possible dissection with possible closure of the LAD, we elected to proceed with medical management. He was also found to have nonobstructive disease of his left circumflex and at most a 50% mid RCA stenosis. His EF was around 50% with mild mid anterior apical hypokinesis. [] Past Medical History Allergies/Adverse Reactions: Allergies pregabalin [From Lyrica] Adverse Reaction (Verified 09/13/18 20:31) Itching Home Medications: Ambulatory Orders Medication Instructions Recorded Duloxetine Hcl [Cymbalta] 120 mg PO DAILY 02/17/16 Hydromorphone HCl [Dilaudid] 4 mg PO Q6H 02/17/16 Oxycodone HCl [Oxycontin] 20 mg PO BID 02/17/16 Sertraline HCl [Zoloft] 200 mg PO DAILY 02/17/16 Tiagabine HCl [Gabitril] 4 mg PO DAILY 02/17/16 Tizanidine HCl [Zanaflex] 8 mg PO QHS 02/17/16 aripiprazole 2 mg tablet 2 mg PO ONCE 07/12/17 lisinopril 10 mg tablet 10 mg PO QDAY 07/12/17 metformin 500 mg tablet 1,000 mg PO BID 07/12/17 Atorvastatin Calcium [Lipitor] 40 mg PO DAILY 09/14/18 Magnesium 250 mg PO DAILY 09/14/18 Tim Red 09/14/18 Multivitamin with Minerals 1 each PO DAILY 09/14/18 [Multiple Vitamin] Omeprazole [Prilosec] 20 mg PO DAILY 09/14/18 Past Medical History (Chronic Problems): Chronic Problems (Last Reviewed 09/15/17 @ 12:58 by Sarah Ordonez) Anxiety and depression (Chronic) Tobacco use (Chronic) Benign essential HTN (Chronic) Chronic pain (Chronic) Depression (Chronic) DM2 (diabetes mellitus, type 2) (Chronic) HLD (hyperlipidemia) (Chronic) Surgical History: - - Lumbar back surgery, bilateral knee arthroscopic surgery with 3 left and one right surgery performed. Psychiatric History: Anxiety, Depression - *Family History Maternal Family History: Family History (Last Reviewed 09/15/17 @ 12:58 by Sarah Ordonez) Other Arthritis History Items: - - Patient notes a maternal family history of HD. Paternal Family History: Family History (Last Reviewed 09/15/17 @ 12:58 by Sarah Ordonez) Other Arthritis History Items: - - Father with a history of esophageal cancer. Lives: Spouse/ Significant Other, With Family Smoking Status: Current every day smoker - 1-1.5 pack cigarette tobacco usage daily. Tobacco Use: Cigarettes Alcohol: Occasional Drugs: None Review of Systems - Review of Systems General: Denies: Fever, Night Sweats, Fatigue Cardiovascular: Reports: Chest Discomfort, Chest Discomfort at Rest, Shortness of Breath, Shortness of Breath at Rest, Palpitations. Denies: Orthopnea, PND, Peripheral Edema, Lightheadedness, Dizziness, Near Syncope, Syncope Respiratory: Denies: Cough, Sputum Production, Hemoptysis Gastrointestinal: Denies: Hematemesis, Hematochezia, Melena Genitourinary: Denies: Dysuria, Hematuria Skin: Denies: Rash Subjectve: Patient resting comfortably, no acute distress. Objective: Vital Signs Temp Pulse Resp BP Pulse Ox 97.8 F 73 16 108/62 2 09/14/18 07:40 09/14/18 07:40 09/14/18 07:40 09/14/18 07:40 09/14/18 08:00 Oxygen Flow Rate (L/min) 2 Oxygen Delivery Method Nasal Cannula Weight: 197 lb 5.019 oz Body Mass Index (BMI) 28.3 General: Awake, Alert, Oriented x 3 HEENT: PERRL, EOMI, Sclera Non Icteric Neck: Supple, Good ROM, No Lymph Node Enlargement Lungs: Clear to auscultation Cardiovascular: Regular Rhythm, Normal S1, Normal S2, No Murmurs, No Rubs, No Gallops Vascular: No Carotid Bruits, Normal Femoral Pulses, Normal Radial Pulses, Normal Dorsalis Pedal Pulse, Normal Posterior Tibial Pulses Abdomen: Bowel Sounds Present, Soft, Non Tender, No HSM, No Organomegaly Extremities: No Cyanosis, No Clubbing, No edema Neurological: No Focal Motor or Sensory Deficit 09/13/18 20:37: WBC 24.2 H, RBC 5.79, Hgb 17.6 H, Hct 52.6, MCV 90.8, MCH 30.4, MCHC 33.5, RDW 13.0, RDW Differential 42.4, Plt Count 154, MPV 11.7, Immature Gran % (Auto) 0.500, Neut % (Auto) 89.9 H, Lymph % (Auto) 6.4 L, [place] % (Auto) 2.9, Eos % (Auto) 0.2, Baso % (Auto) 0.1, Absolute Neuts (auto) 21.8 H, Total Counted Not Reportable 09/13/18 20:37: Sodium 138, Potassium 4.3, Chloride 102, Carbon Dioxide 24.0, Anion Gap 12, BUN 20 H, Creatinine 1.19, Est GFR (MDRD) Af Amer 84, Est GFR (MDRD) Non-Af 70, BUN/Creatinine Ratio 16.8, Glucose 337 H, Calcium 9.2, Troponin I 0.218 H 09/13/18 20:37: PT 12.5, INR 1.0, APTT 27.5 09/13/18 20:37: Magnesium 2.1 09/13/18 20:37: Hemoglobin A1c 9.0 H 09/14/18 00:32: Troponin I 2.300 H* 09/14/18 03:28: WBC 21.0 H, RBC 5.40, Hgb 16.3, Hct 48.5, MCV 89.8, MCH 30.2, MCHC 33.6, RDW 12.9, RDW Differential 42.3, Plt Count 145 L, MPV 11.4 09/14/18 03:28: Sodium 139, Potassium 4.4, Chloride 106, Carbon Dioxide 22.0, Anion Gap 11, BUN 19 H, Creatinine 0.92, Est GFR (MDRD) Af Amer 114, Est GFR (MDRD) Non-Af 94, BUN/Creatinine Ratio 20.8 H, Glucose 325 H, Calcium 8.8, Total Bilirubin 0.40, Triglycerides 245 H, Cholesterol 153, LDL Cholesterol 72, VLDL Cholesterol 49 H, HDL Cholesterol 32 L 09/14/18 03:28: Troponin I 11.000 H* 09/14/18 05:00: APTT 56.9 H 09/14/18 06:25: Urine Color Yellow, Urine Clarity Sl. Cloudy, Urine pH 6.0, Ur Specific [place] 1.020, Urine Protein Negative, Urine Glucose (UA) 1000 H, Urine Ketones 50 H, Urine Occult Blood Negative, Urine Nitrite Negative, Urine Bilirubin Negative, Urine Urobilinogen Normal, Ur Leukocyte Esterase Negative, Urine RBC 0 SEEN, Urine WBC 0 SEEN Rhythm: EKG: As above ECHO: Pending Stress Test: Cardiac Cath: As above PCI: CT Surgery: Holter monitor: EPS: PPM: CXR: Chest CT Scan: Assessment/Plan 1. Coronary artery disease: The patient presents with unstable angina superimposed upon worsening anginal symptoms over the last couple of months. He was found to have a critical stenosis of his mid diagonal branch and underwent successful angioplasty and drug-eluting stenting without complications, receiving a 2.25 ex-24 Promus stent, postdilated proximally with a 2.5 mm balloon. Patient also appears to have a hazy area in the mid LAD at the bifurcation of the diagonal branch, and multiple attempts were made to try and cannulate this with a wire without success. Out of concern of possible false lumen dissection, as well as the fact the patient was asymptomatic, had CONCHITA-3 flow, and will be on aspirin, Brilinta, and eventually Xarelto for paroxysmal atrial fibrillation as well as the fact that the patient had reached his IV contrast dye threshold to avoid renal insufficiency, we elected to abort any additional wire cannulization of his LAD. My hope is that the patient's LAD lesion will heal on its own over the next several weeks. If however the patient has recurrent exertional chest pain symptoms despite angioplasty of his diagonal, he may return for repeat catheterization and reattempted angioplasty of his mid LAD. In the meantime he will continue baby aspirin for life, Brilinta for at least 12 months, and we will start Xarelto tomorrow morning for anticoagulation and his paroxysmal atrial fibrillation. 2. Tobacco cessation: The patient is currently smoking, and has been since his early teens. I have no doubt that his coronary artery disease has been made worse by years of smoking. I strongly encouraged the patient, his , and his family to discontinue all tobacco products as this may cause plated aggregation or activation possibly inducing a myocardial infarction in the overall mid LAD area. 3. Hyperlipidemia: Recommend obtaining a fasting lipid profile, and aggressive LDL reduction with Lipitor therapy or Crestor if not at a goal of LDL 70 or less. 4. Hypertension: Recommend continuing Coreg, lisinopril, and repeat blood pressure check in 2 weeks time. 5. Diabetes: The patient requires aggressive diabetic control in order to avoid progression of his coronary and peripheral vascular disease. Recommend consultation with endocrinology. 6. Thank you very much for the opportunity to precipitate the cardiac care of your patient. Discussed with Dr. Bolton. Would not recommend cardiac rehab at least until 1 months time to ensure that his mid LAD area has been well-healed. Code Visit Inpatient E&M: 10420 Init Hosp L2
[2018-09-14 11:50] LABS: Bedside Glucose 260 mg/dL (70-110)
[2018-09-14] MEDS: Sertraline 100 MG Tablet 200 MG PO (12:14)
[2018-09-14] MEDS: Famotidine 20 MG Tablet PO ×2 (12:15→21:21)
[2018-09-14] MEDS: Lisinopril 10 MG Tablet PO (12:15)
[2018-09-14] MEDS: ARIPiprazole 2 MG Tablet PO (12:16)
[2018-09-14] MEDS: Pantoprazole Sodium 40 MG Tablet PO (12:16)
[2018-09-14] MEDS: DULoxetine Hcl 30 MG Capsule 90 MG PO (12:16)
--- NOTE | 2018-09-14 12:20 | PCM.PROGNOTE ---
<Donald Currie - Last Filed: 09/14/18 12:20> Patient Problems: Active and Suspected Problems (Last Reviewed 09/15/17 @ 12:58 by Sarah Ordonez) NSTEMI (non-ST elevated myocardial infarction) (Acute) Unstable angina (Acute) Subjective: Patient seen and evaluated post heart catheterization, post successful PTCA to mid diagonal. no CP/tightness/heaviness/shortness of breath/nausea or vomiting/ cough - Physical Exam General: Alert, Oriented x3, Cooperative HEENT: Atraumatic, PERRLA, EOMI, Normocephalic Neck: Supple, No JVD, Negative Carotid Bruits Lungs: Clear to auscultation, Normal air movement Cardiovascular: Regular rate, No murmurs Abdomen: Bowel Sounds Present, Soft, Non Tender Extremities: No edema, Capillary Refill Less than 3 Seconds Skin: No rashes, No breakdown Musculoskeletal: No Tenderness to Palpation of Joints or Extremities Neurological: Cranial nerves II-XII grossly intact Psych/Mental Status: Normal Affect, Appropriate, Alert and oriented to time, place, person, mood and affect Vital Signs Temp Pulse Resp BP Pulse Ox 97.8 F 69 14 119/71 97 09/14/18 07:40 09/14/18 12:00 09/14/18 12:00 09/14/18 12:00 09/14/18 12:00 Oxygen Flow Rate (L/min) 2 Oxygen Delivery Method Nasal Cannula Weight: 197 lb 5.019 oz Body Mass Index (BMI) 28.3 Intake and Output for Last 24 Hours 09/12/18 09/13/18 09/14/18 23:59 23:59 23:59 Intake Total 240 / 240 Balance 240 / 240 Laboratory Tests Past 24 Hrs 09/13/18 09/13/18 09/13/18 20:37 20:37 20:37 WBC 24.2 H RBC 5.79 Hgb 17.6 H Hct 52.6 MCV 90.8 MCH 30.4 MCHC 33.5 RDW 13.0 RDW Differential 42.4 Plt Count 154 MPV 11.7 Immature Gran % (Auto) 0.500 Neut % (Auto) 89.9 H Lymph % (Auto) 6.4 L [place] % (Auto) 2.9 Eos % (Auto) 0.2 Baso % (Auto) 0.1 Absolute Neuts (auto) 21.8 H Absolute Lymphs (auto) 1.54 Total Counted Not Reportable Differential Comment SCANNED PT 12.5 INR 1.0 APTT 27.5 Activated Clotting Time Sodium 138 Potassium 4.3 Chloride 102 Carbon Dioxide 24.0 Anion Gap 12 BUN 20 H Creatinine 1.19 Estim Creat Clear Calc 80.09 Est GFR (MDRD) Af Amer 84 Est GFR (MDRD) Non-Af 70 BUN/Creatinine Ratio 16.8 Glucose 337 H Hemoglobin A1c Calcium 9.2 Magnesium Total Bilirubin AST ALT Alkaline Phosphatase Troponin I 0.218 H Total Protein Albumin Globulin Albumin/Globulin Ratio Triglycerides Cholesterol LDL Cholesterol VLDL Cholesterol HDL Cholesterol Urine Color Urine Clarity Urine pH Ur Specific Reliance Urine Protein Urine Glucose (UA) Urine Ketones Urine Occult Blood Urine Nitrite Urine Bilirubin Urine Urobilinogen Ur Leukocyte Esterase Urine RBC Urine WBC Ur Squamous Epith Cells Urine Bacteria Urine Mucus 09/13/18 09/13/18 09/14/18 20:37 20:37 00:32 WBC RBC Hgb Hct MCV MCH MCHC RDW RDW Differential Plt Count MPV Immature Gran % (Auto) Neut % (Auto) Lymph % (Auto) [place] % (Auto) Eos % (Auto) Baso % (Auto) Absolute Neuts (auto) Absolute Lymphs (auto) Total Counted Differential Comment PT INR APTT Activated Clotting Time Sodium Potassium Chloride Carbon Dioxide Anion Gap BUN Creatinine Estim Creat Clear Calc Est GFR (MDRD) Af Amer Est GFR (MDRD) Non-Af BUN/Creatinine Ratio Glucose Hemoglobin A1c 9.0 H Calcium Magnesium 2.1 Total Bilirubin AST ALT Alkaline Phosphatase Troponin I 2.300 H* Total Protein Albumin Globulin Albumin/Globulin Ratio Triglycerides Cholesterol LDL Cholesterol VLDL Cholesterol HDL Cholesterol Urine Color Urine Clarity Urine pH Ur Specific Reliance Urine Protein Urine Glucose (UA) Urine Ketones Urine Occult Blood Urine Nitrite Urine Bilirubin Urine Urobilinogen Ur Leukocyte Esterase Urine RBC Urine WBC Ur Squamous Epith Cells Urine Bacteria Urine Mucus 09/14/18 09/14/18 09/14/18 03:28 03:28 03:28 WBC 21.0 H RBC 5.40 Hgb 16.3 Hct 48.5 MCV 89.8 MCH 30.2 MCHC 33.6 RDW 12.9 RDW Differential 42.3 Plt Count 145 L MPV 11.4 Immature Gran % (Auto) Neut % (Auto) Lymph % (Auto) [place] % (Auto) Eos % (Auto) Baso % (Auto) Absolute Neuts (auto) Absolute Lymphs (auto) Total Counted Differential Comment PT INR APTT Activated Clotting Time Sodium 139 Potassium 4.4 Chloride 106 Carbon Dioxide 22.0 Anion Gap 11 BUN 19 H Creatinine 0.92 Estim Creat Clear Calc 103.59 Est GFR (MDRD) Af Amer 114 Est GFR (MDRD) Non-Af 94 BUN/Creatinine Ratio 20.8 H Glucose 325 H Hemoglobin A1c Calcium 8.8 Magnesium Total Bilirubin 0.40 AST 52 H ALT 33 Alkaline Phosphatase 110 Troponin I 11.000 H* Total Protein 6.6 Albumin 3.6 Globulin 3.0 Albumin/Globulin Ratio 1.2 Triglycerides 245 H Cholesterol 153 LDL Cholesterol 72 VLDL Cholesterol 49 H HDL Cholesterol 32 L Urine Color Urine Clarity Urine pH Ur Specific [place] Urine Protein Urine Glucose (UA) Urine Ketones Urine Occult Blood Urine Nitrite Urine Bilirubin Urine Urobilinogen Ur Leukocyte Esterase Urine RBC Urine WBC Ur Squamous Epith Cells Urine Bacteria Urine Mucus 09/14/18 09/14/18 09/14/18 05:00 06:25 08:51 WBC RBC Hgb Hct MCV MCH MCHC RDW RDW Differential Plt Count MPV Immature Gran % (Auto) Neut % (Auto) Lymph % (Auto) [place] % (Auto) Eos % (Auto) Baso % (Auto) Absolute Neuts (auto) Absolute Lymphs (auto) Total Counted Differential Comment PT INR APTT 56.9 H Activated Clotting Time 98 Sodium Potassium Chloride Carbon Dioxide Anion Gap BUN Creatinine Estim Creat Clear Calc Est GFR (MDRD) Af Amer Est GFR (MDRD) Non-Af BUN/Creatinine Ratio Glucose Hemoglobin A1c Calcium Magnesium Total Bilirubin AST ALT Alkaline Phosphatase Troponin I Total Protein Albumin Globulin Albumin/Globulin Ratio Triglycerides Cholesterol LDL Cholesterol VLDL Cholesterol HDL Cholesterol Urine Color Yellow Urine Clarity Sl. Cloudy Urine pH 6.0 Ur Specific [place]iance 1.020 Urine Protein Negative Urine Glucose (UA) 1000 H Urine Ketones 50 H Urine Occult Blood Negative Urine Nitrite Negative Urine Bilirubin Negative Urine Urobilinogen Normal Ur Leukocyte Esterase Negative Urine RBC 0 SEEN Urine WBC 0 SEEN Ur Squamous Epith Cells 0-5 SEEN Urine Bacteria 0 SEEN Urine Mucus 0 SEEN 09/14/18 09:48 WBC RBC Hgb Hct MCV MCH MCHC RDW RDW Differential Plt Count MPV Immature Gran % (Auto) Neut % (Auto) Lymph % (Auto) [place] % (Auto) Eos % (Auto) Baso % (Auto) Absolute Neuts (auto) Absolute Lymphs (auto) Total Counted Differential Comment PT INR APTT Activated Clotting Time 246 H Sodium Potassium Chloride Carbon Dioxide Anion Gap BUN Creatinine Estim Creat Clear Calc Est GFR (MDRD) Af Amer Est GFR (MDRD) Non-Af BUN/Creatinine Ratio Glucose Hemoglobin A1c Calcium Magnesium Total Bilirubin AST ALT Alkaline Phosphatase Troponin I Total Protein Albumin Globulin Albumin/Globulin Ratio Triglycerides Cholesterol LDL Cholesterol VLDL Cholesterol HDL Cholesterol Urine Color Urine Clarity Urine pH Ur Specific [place] Urine Protein Urine Glucose (UA) Urine Ketones Urine Occult Blood Urine Nitrite Urine Bilirubin Urine Urobilinogen Ur Leukocyte Esterase Urine RBC Urine WBC Ur Squamous Epith Cells Urine Bacteria Urine Mucus POC Glucose 09/14/18 09/14/18 11:44 06:54 POC Glucose 260 H 362 H Medical Necessity - Tobacco Use Smoking Status: Current every day smoker - 1-1.5 pack cigarette tobacco usage daily. Tobacco Use: Cigarettes Assessment/Plan All Active Problems (Last Reviewed 09/15/17 @ 12:58 by Sarah Ordonez) NSTEMI (non-ST elevated myocardial infarction) (Acute) Unstable angina (Acute) 1. Chest pain/non-STEMI/CAD-heart cath today with PTCA mid diagonal, double vessel disease of the diagonal and LAD. LAD was unable to be performed. -Continue aspirin, statin, Coreg, lisinopril 2. Nicotine abuse - reiterated the need for cessation 3. DMt2 - SSI, hold metformin, consider additional agent such as Victoza given his A1C of 9.0 and the indication for reduction of cardiac events 4. HLD - statin 5. HTN - stable 6. Anx/Dep - continue home meds DC planning: likely home tomorrow, monitor overnight DVT ppx: heparin This patient was seen by Donald Currie PA-C under the supervision of Doctor Che. <Dante Bolton - Last Filed: 09/14/18 13:51> - Physical Exam Vital Signs Temp Pulse Resp BP Pulse Ox 97.8 F 70 16 113/72 96 09/14/18 07:40 09/14/18 13:00 09/14/18 13:00 09/14/18 13:00 09/14/18 13:00 Oxygen Flow Rate (L/min) 2 Oxygen Delivery Method Nasal Cannula Weight: 89.358 kg Body Mass Index (BMI) 28.3 Intake and Output for Last 24 Hours 09/12/18 09/13/18 09/14/18 23:59 23:59 23:59 Intake Total 240 / 240 Balance 240 / 240 Laboratory Tests Past 24 Hrs 09/13/18 09/13/18 09/13/18 20:37 20:37 20:37 WBC 24.2 H RBC 5.79 Hgb 17.6 H Hct 52.6 MCV 90.8 MCH 30.4 MCHC 33.5 RDW 13.0 RDW Differential 42.4 Plt Count 154 MPV 11.7 Immature Gran % (Auto) 0.500 Neut % (Auto) 89.9 H Lymph % (Auto) 6.4 L [place] % (Auto) 2.9 Eos % (Auto) 0.2 Baso % (Auto) 0.1 Absolute Neuts (auto) 21.8 H Absolute Lymphs (auto) 1.54 Total Counted Not Reportable Differential Comment SCANNED PT 12.5 INR 1.0 APTT 27.5 Activated Clotting Time Sodium 138 Potassium 4.3 Chloride 102 Carbon Dioxide 24.0 Anion Gap 12 BUN 20 H Creatinine 1.19 Estim Creat Clear Calc 80.09 Est GFR (MDRD) Af Amer 84 Est GFR (MDRD) Non-Af 70 BUN/Creatinine Ratio 16.8 Glucose 337 H Hemoglobin A1c Calcium 9.2 Magnesium Total Bilirubin AST ALT Alkaline Phosphatase Troponin I 0.218 H Total Protein Albumin Globulin Albumin/Globulin Ratio Triglycerides Cholesterol LDL Cholesterol VLDL Cholesterol HDL Cholesterol Urine Color Urine Clarity Urine pH Ur Specific [place] Urine Protein Urine Glucose (UA) Urine Ketones Urine Occult Blood Urine Nitrite Urine Bilirubin Urine Urobilinogen Ur Leukocyte Esterase Urine RBC Urine WBC Ur Squamous Epith Cells Urine Bacteria Urine Mucus 09/13/18 09/13/18 09/14/18 20:37 20:37 00:32 WBC RBC Hgb Hct MCV MCH MCHC RDW RDW Differential Plt Count MPV Immature Gran % (Auto) Neut % (Auto) Lymph % (Auto) [place] % (Auto) Eos % (Auto) Baso % (Auto) Absolute Neuts (auto) Absolute Lymphs (auto) Total Counted Differential Comment PT INR APTT Activated Clotting Time Sodium Potassium Chloride Carbon Dioxide Anion Gap BUN Creatinine Estim Creat Clear Calc Est GFR (MDRD) Af Amer Est GFR (MDRD) Non-Af BUN/Creatinine Ratio Glucose Hemoglobin A1c 9.0 H Calcium Magnesium 2.1 Total Bilirubin AST ALT Alkaline Phosphatase Troponin I 2.300 H* Total Protein Albumin Globulin Albumin/Globulin Ratio Triglycerides Cholesterol LDL Cholesterol VLDL Cholesterol HDL Cholesterol Urine Color Urine Clarity Urine pH Ur Specific [place] Urine Protein Urine Glucose (UA) Urine Ketones Urine Occult Blood Urine Nitrite Urine Bilirubin Urine Urobilinogen Ur Leukocyte Esterase Urine RBC Urine WBC Ur Squamous Epith Cells Urine Bacteria Urine Mucus 09/14/18 09/14/18 09/14/18 03:28 03:28 03:28 WBC 21.0 H RBC 5.40 Hgb 16.3 Hct 48.5 MCV 89.8 MCH 30.2 MCHC 33.6 RDW 12.9 RDW Differential 42.3 Plt Count 145 L MPV 11.4 Immature Gran % (Auto) Neut % (Auto) Lymph % (Auto) [place] % (Auto) Eos % (Auto) Baso % (Auto) Absolute Neuts (auto) Absolute Lymphs (auto) Total Counted Differential Comment PT INR APTT Activated Clotting Time Sodium 139 Potassium 4.4 Chloride 106 Carbon Dioxide 22.0 Anion Gap 11 BUN 19 H Creatinine 0.92 Estim Creat Clear Calc 103.59 Est GFR (MDRD) Af Amer 114 Est GFR (MDRD) Non-Af 94 BUN/Creatinine Ratio 20.8 H Glucose 325 H Hemoglobin A1c Calcium 8.8 Magnesium Total Bilirubin 0.40 AST 52 H ALT 33 Alkaline Phosphatase 110 Troponin I 11.000 H* Total Protein 6.6 Albumin 3.6 Globulin 3.0 Albumin/Globulin Ratio 1.2 Triglycerides 245 H Cholesterol 153 LDL Cholesterol 72 VLDL Cholesterol 49 H HDL Cholesterol 32 L Urine Color Urine Clarity Urine pH Ur Specific [place] Urine Protein Urine Glucose (UA) Urine Ketones Urine Occult Blood Urine Nitrite Urine Bilirubin Urine Urobilinogen Ur Leukocyte Esterase Urine RBC Urine WBC Ur Squamous Epith Cells Urine Bacteria Urine Mucus 09/14/18 09/14/18 09/14/18 05:00 06:25 08:51 WBC RBC Hgb Hct MCV MCH MCHC RDW RDW Differential Plt Count MPV Immature Gran % (Auto) Neut % (Auto) Lymph % (Auto) [place] % (Auto) Eos % (Auto) Baso % (Auto) Absolute Neuts (auto) Absolute Lymphs (auto) Total Counted Differential Comment PT INR APTT 56.9 H Activated Clotting Time 98 Sodium Potassium Chloride Carbon Dioxide Anion Gap BUN Creatinine Estim Creat Clear Calc Est GFR (MDRD) Af Amer Est GFR (MDRD) Non-Af BUN/Creatinine Ratio Glucose Hemoglobin A1c Calcium Magnesium Total Bilirubin AST ALT Alkaline Phosphatase Troponin I Total Protein Albumin Globulin Albumin/Globulin Ratio Triglycerides Cholesterol LDL Cholesterol VLDL Cholesterol HDL Cholesterol Urine Color Yellow Urine Clarity Sl. Cloudy Urine pH 6.0 Ur Specific [place] 1.020 Urine Protein Negative Urine Glucose (UA) 1000 H Urine Ketones 50 H Urine Occult Blood Negative Urine Nitrite Negative Urine Bilirubin Negative Urine Urobilinogen Normal Ur Leukocyte Esterase Negative Urine RBC 0 SEEN Urine WBC 0 SEEN Ur Squamous Epith Cells 0-5 SEEN Urine Bacteria 0 SEEN Urine Mucus 0 SEEN 09/14/18 09:48 WBC RBC Hgb Hct MCV MCH MCHC RDW RDW Differential Plt Count MPV Immature Gran % (Auto) Neut % (Auto) Lymph % (Auto) [place] % (Auto) Eos % (Auto) Baso % (Auto) Absolute Neuts (auto) Absolute Lymphs (auto) Total Counted Differential Comment PT INR APTT Activated Clotting Time 246 H Sodium Potassium Chloride Carbon Dioxide Anion Gap BUN Creatinine Estim Creat Clear Calc Est GFR (MDRD) Af Amer Est GFR (MDRD) Non-Af BUN/Creatinine Ratio Glucose Hemoglobin A1c Calcium Magnesium Total Bilirubin AST ALT Alkaline Phosphatase Troponin I Total Protein Albumin Globulin Albumin/Globulin Ratio Triglycerides Cholesterol LDL Cholesterol VLDL Cholesterol HDL Cholesterol Urine Color Urine Clarity Urine pH Ur Specific [place] Urine Protein Urine Glucose (UA) Urine Ketones Urine Occult Blood Urine Nitrite Urine Bilirubin Urine Urobilinogen Ur Leukocyte Esterase Urine RBC Urine WBC Ur Squamous Epith Cells Urine Bacteria Urine Mucus POC Glucose 09/14/18 09/14/18 11:44 06:54 POC Glucose 260 H 362 H Assessment/Plan This patient was seen in conjunction with Donald Currie PA-C . I have independently interviewed and examined the patient and reviewed pertinent historical, laboratory, and other data. Please refer to Donald Currie PA-C note for details of this patient's presentation, findings, and recommendations. I have reviewed Donald Currie PA-C note and concur with documented findings. In brief, patient 47-year-old gentleman with past medical history cigar for diabetes mellitus type 2 hypertension dyslipidemia presented with chest pain and assessment of acute non-STEMI made patient underwent left heart catheterization on 09/14/2018 with intervention to a 90% mid diagonal lesion. Patient was also found to have some haziness in the LAD with questionable false lumen and intervention could not be performed. Physical Examination: GENERAL: cooperative HEENT: Atraumatic; moist oral mucosa EYES; Anicteric, Normal Conjunctiva NECK; supple, normal thyroid, no distended JVD. RESPIRATORY: Diminished to auscultation bilaterally, CARDIOVASCULAR: Regular S1 S2, no audible murmurs NEURO: Awake; no lateralizing signs. SKIN: No Rash PSYCH; Normal affect Assessment: 1. Acute non-STEMI 2. Paroxysmal atrial fibrillation 3. Diabetes mellitus type 2 4. Dyslipidemia 5. Hypertension 6. Depression with anxiety 7. Tobacco dependence 8. Obstructive sleep apnea Recommendations: 1. I have discussed the results of my overview and impressions with the patient 2. Options for management were reviewed Code Visit Inpatient E&M: 72564 Subs Hosp L3
--- NOTE | 2018-09-14 12:31 | CASEMGMT ---
RN CM Assessment Presentation: NSTEMI Intro role of CM and purpose of RN CM assessment to patient . Pt is awake, alert and able to participate in assessment. Demographics/pharmacy and PCP verified. Correct pharmacy entered in chart. PCP: Debra Fabian Specialists: cardiology Preferred Pharmacy: [facility] Insurance: [facility] Medicare/[employer]. PT is disabled. Prescription Benefit: yes. Anticipate will need Brilinta on dc. Savings card given and explained to pt. LNOK: Mackenzie Living Arrangements: Lives with . Transportation: no transportation issues. DME: cane HHC: none DC PLAN: anticipate home with family support.
--- NOTE | 2018-09-14 13:24 | CRPHASE1 ---
Patient Data/Charges Vision Impaired Teacher:: Gerber Marshall Phase II Referral:: [facility] Risk Factors/Lifestyle Smoking Status: Current every day smoker - STATES HE SMOKES 1-1.5 PPD FOR 6 YEARS Hx Hypertension: Yes Hx Diabetes Mellitus Type 2: Yes Hx Dyslipidemia: Yes Height: 5 ft 10 in Weight:: 197 lb BMI: 28.3 ETOH: Yes Caffeine: Yes Risk Factor for Sedentary Lifestyle: Highest Risk Family History: Family History (Last Reviewed 09/15/17 @ 12:58 by Sarah Ordonez) Other Arthritis Laboratory Values: Cardiac Rehab Phase I Labs Hemoglobin A1c 9.0 % (4.2-6.3) H 09/13/18 20:37 Triglycerides 245 mg/dL (-199) H 09/14/18 03:28 Cholesterol 153 mg/dL (200) 09/14/18 03:28 LDL Cholesterol 72 mg/dL (0-130) 09/14/18 03:28 HDL Cholesterol 32 mg/dL (40-) L 09/14/18 03:28 Phase I Education Given On:: [place], Nutrition, Antiplatelet medication, CHF, Smoking cessation, Diabetes - Type I, Diabetes - Type II Issues Affecting Care:: None Knowledge of Condition:: Yes Hospital Course Presenting Symptoms:: SOB,HEAVINESS,M NAUSEA AND DIAPHORESIS Medical/Surgical History [place]:: Yes CAD:: Yes COPD:: No Asthma:: No Diabetes Type II:: Yes Hypertension:: Yes Dyslipidemia:: Yes PE:: No PVD:: No GERD:: No Cancer:: No Renal:: No Thyroid:: No Depression:: Yes Anxiety:: Yes CABG: No ICD:: No Pacemaker:: No Discharge/Home/Social Eval Discharge Disposition: Home
--- NOTE | 2018-09-14 13:28 | CRPHASE1_ITS ---
Patient Data/Charges Program Evaluator:: Gerber Marshall Phase II Referral:: [facility] Risk Factors/Lifestyle Smoking Status: Current every day smoker - STATES HE SMOKES 1-1.5 PPD FOR 6 YEARS Hx Hypertension: Yes Hx Diabetes Mellitus Type 2: Yes Hx Dyslipidemia: Yes Height: 5 ft 10 in Weight:: 197 lb BMI: 28.3 ETOH: Yes Caffeine: Yes Risk Factor for Sedentary Lifestyle: Highest Risk Family History: Family History (Last Reviewed 09/15/17 @ 12:58 by Sarah Ordonez) Other Arthritis Laboratory Values: Cardiac Rehab Phase I Labs Hemoglobin A1c 9.0 % (4.2-6.3) H 09/13/18 20:37 Triglycerides 245 mg/dL (-199) H 09/14/18 03:28 Cholesterol 153 mg/dL (200) 09/14/18 03:28 LDL Cholesterol 72 mg/dL (0-130) 09/14/18 03:28 HDL Cholesterol 32 mg/dL (40-) L 09/14/18 03:28 Phase I Education Given On:: [place], Nutrition, Antiplatelet medication, CHF, Smoking cessation, Diabetes - Type I, Diabetes - Type II Issues Affecting Care:: None Knowledge of Condition:: Yes Hospital Course Presenting Symptoms:: SOB,HEAVINESS,M NAUSEA AND DIAPHORESIS Medical/Surgical History [place]:: Yes CAD:: Yes COPD:: No Asthma:: No Diabetes Type II:: Yes Hypertension:: Yes Dyslipidemia:: Yes PE:: No PVD:: No GERD:: No Cancer:: No Renal:: No Thyroid:: No Depression:: Yes Anxiety:: Yes CABG: No ICD:: No Pacemaker:: No Discharge/Home/Social Eval Discharge Disposition: Home
--- NOTE | 2018-09-14 13:29 | CRPH1.INSTRU ---
General Education CAD and cardiac anatomy and function:: Not instructed Explanation of diagnoses and procedures:: Not instructed Sign/Symptoms of [place]:: Not instructed Antiplatelet therapy: Patient communicates acknowledgment, Needs reinforcement Proper use of NTG-SL: Not instructed Emergency procedures and activation of EMS: Patient communicates acknowledgment, Needs reinforcement Compliance of all prescribed medications: Patient communicates acknowledgment, Needs reinforcement Smoking Patient Nicotine/Smoking Risk Factors Are:: Cigarettes Recommendations Include:: Smoking cessation strategies/Smoking packet, Second-hand smoke recommendation, Participation in a smoking cessation program, Previous smoker; encourage continued cessation Nicotine/Smoking Response Code:: Not instructed Dyslipidemia Patient Dyslipidemia Risk Factors Are:: Total Cholesterol - 153, Triglycerides - 245, HDL - 403, LDL - 723 Recommendations Include:: Lipid profile provided Dyslipidemia Response Code:: Not instructed Overweight/Obesity Patient Overweight/Obesity Risk Factors Are:: BMI Normal [24-29 & > 65 years old], Obesity - > or = 30 Overweight/Obesity:: Not instructed Hypertension Recommendations Include:: Maintain BP <130/85, BP <130/80 if diabetic, DASH dietary guidelines, Decrease/maintain normal body weight, Moderation of ETOH Hypertension:: Not instructed Heart Disease Heart Disease Response Code:: Not instructed Diabetes Patient Diabetes Risk Factors Are:: Elevated blood sugars Recommendations Include:: Maintain fasting blood sugars 70-110 md/dL, Maintain HgbA1c of 6% or less, Monitor blood sugar as prescribed, Diabetic dietary guidelines, Decrease/maintain body weight Diabetes:: Not instructed Metabolic Syndrome Metabolic Syndrome Response Code:: Not instructed Sedentary Patient Sedentary Risk Factors Are:: Lack of regular exercise Recommendations Include:: Aerobic exercise 5-7 times/week for 20-30 minutes continuously, Benefits of regular exercise, Discussed home walking program, Monitored Outpatient Cardiac Rehab Sedentary Response Code:: Needs reinforcement Stress Stress Response Code:: Not instructed
[2018-09-14] MEDS: Insulin Lispro 100 UNIT/ML INSULN.PEN SC ×3 (13:40→22:21)
--- NOTE | 2018-09-14 13:44 | CRPH1.INST_ITS ---
General Education CAD and cardiac anatomy and function:: Not instructed Explanation of diagnoses and procedures:: Not instructed Sign/Symptoms of ND:: Not instructed Antiplatelet therapy: Patient communicates acknowledgment, Needs reinforcement Proper use of NTG-SL: Not instructed Emergency procedures and activation of EMS: Patient communicates acknowledgment, Needs reinforcement Compliance of all prescribed medications: Patient communicates acknowledgment, Needs reinforcement Smoking Patient Nicotine/Smoking Risk Factors Are:: Cigarettes Recommendations Include:: Smoking cessation strategies/Smoking packet, Second- hand smoke recommendation, Participation in a smoking cessation program, Previous smoker; encourage continued cessation Nicotine/Smoking Response Code:: Not instructed Dyslipidemia Patient Dyslipidemia Risk Factors Are:: Total Cholesterol - 153, Triglycerides - 245, HDL - 403, LDL - 723 Recommendations Include:: Lipid profile provided Dyslipidemia Response Code:: Not instructed Overweight/Obesity Patient Overweight/Obesity Risk Factors Are:: BMI Normal [24-29 & > 65 years old], Obesity - > or = 30 Overweight/Obesity:: Not instructed Hypertension Recommendations Include:: Maintain BP <130/85, BP <130/80 if diabetic, DASH dietary guidelines, Decrease/maintain normal body weight, Moderation of ETOH Hypertension:: Not instructed Heart Disease Heart Disease Response Code:: Not instructed Diabetes Patient Diabetes Risk Factors Are:: Elevated blood sugars Recommendations Include:: Maintain fasting blood sugars 70-110 md/dL, Maintain HgbA1c of 6% or less, Monitor blood sugar as prescribed, Diabetic dietary guidelines, Decrease/maintain body weight Diabetes:: Not instructed Metabolic Syndrome Metabolic Syndrome Response Code:: Not instructed Sedentary Patient Sedentary Risk Factors Are:: Lack of regular exercise Recommendations Include:: Aerobic exercise 5-7 times/week for 20-30 minutes continuously, Benefits of regular exercise, Discussed home walking program, Monitored Outpatient Cardiac Rehab Sedentary Response Code:: Needs reinforcement Stress Stress Response Code:: Not instructed
--- NOTE | 2018-09-14 15:01 | CPS ---
patient states he was already instructed in incentive last nite and has no questions.
--- NOTE | 2018-09-14 15:38 | PN_ITS ---
Progress Note Patient is scheduled for a post hospital follow-up with Dr. Marshall on 09/22/2018 at 3:00 PM at the [facility].
[2018-09-14 17:31] LABS: Bedside Glucose 326 mg/dL (70-110)
[2018-09-14] MEDS: Atorvastatin Calcium 80 MG Tablet PO (21:21)
[2018-09-14] MEDS: TICAGRELOR 90 MG TABLET PO (22:17)
[2018-09-14 22:31] LABS: Bedside Glucose 296 mg/dL (70-110)
[2018-09-15] VITALS (20 sets, daily range): BP systolic 113–145; BP diastolic 63–95; PULSE 62–109; RESP 14–20; TEMP 36.8–37.1; O2SAT 94–97
[2018-09-15 02:55] LABS: Bedside Glucose 309 mg/dL (70-110)
[2018-09-15 05:00] LABS: Hematocrit 44.8 % (40-54); Hemoglobin 14.8 g/dl (13.0-16.5); Mean Corpuscular Hgb 30.2 pg (27.0-32.0); Mean Corpuscular Volume 91.4 fL (80-94); Mean Platelet Vol. 11.1 fl (6.2-12.0); Platelet Count 124 K/mm3 (150-450); RBC Distribution Width CV 12.8 % (11.6-14.6); RBC Distribution Width SD 42.3 fl (35.1-43.9); Scan Indicated on CBC? Y/N NO; White Blood Count 15.5 K/mm3 (4.4-11.0)
[2018-09-15 05:23] LABS: Anion Gap 7 (5-15); BUN 13 mg/dL (7-18); BUN/Creat Ratio 18.3 RATIO (10-20); Calcium,Total 7.9 mg/dL (8.5-10.1); Chloride 108 mmol/L (98-107); Cholesterol 136 mg/dL (200); Creatinine, Serum 0.71 mg/dL (0.70-1.30); EST Glomerular Filtration Rate 126 mL/min (>60); Est Glom Filt Rate - Afr Amer 153 mL/min (>60); Estimated Creatinine Clearance 134.23 ml/min; Glucose 296 mg/dL (74-106); High Density Lipoprotein 21 mg/dL; Potassium 3.8 mmol/L (3.5-5.1); Sodium Level 140 mmol/L (136-145); Triglycerides 483 mg/dL
[2018-09-15] MEDS: HYDROmorphone 2 MG TABLET 4 MG PO ×4 (06:48→23:51)
[2018-09-15] MEDS: Nitroglycerin Oint 1 INCH PACKET TRANSDERM. (06:48)
[2018-09-15 06:56] LABS: Bedside Glucose 237 mg/dL (70-110)
[2018-09-15] MEDS: Aspirin E.C. 81 MG Tablet PO (08:26)
[2018-09-15] MEDS: Rivaroxaban 15 MG Tablet PO (08:26)
[2018-09-15] MEDS: Insulin Lispro 100 UNIT/ML INSULN.PEN SC ×4 (08:27→21:27)
--- NOTE | 2018-09-15 08:36 | PN.CARD_ITS ---
Subjectve: Patient feeling much better today. No further chest pain. Telemetry negative. EKG shows normal sinus rhythm, normal EKG, no acute changes. Right groin is clean/dry/intact, no thrills, bruits or hematoma. 2+ DP and PT pulses bilaterally. Hemoglobin and creatinine within nominal limits. Objective: Vital Signs Temp Pulse Resp BP Pulse Ox 98.5 F 71 19 H 139/83 H 96 09/15/18 04:00 09/15/18 06:00 09/15/18 06:00 09/15/18 06:00 09/15/18 06:00 Oxygen Flow Rate (L/min) 2 Oxygen Delivery Method Room Air Weight: 197 lb Body Mass Index (BMI) 28.3 Intake and Output for Last 24 Hours 09/13/18 09/14/18 09/15/18 23:59 23:59 23:59 Intake Total 1640 / 1640 1700 / 1700 Output Total 1300 / 1300 0 / 0 Balance 340 / 340 -350 / -350 General: Awake, Alert, Oriented x 3 HEENT: PERRL, EOMI, Sclera Non Icteric Neck: Supple, Good ROM, No Lymph Node Enlargement Lungs: Clear to auscultation Cardiovascular: Regular Rhythm, Normal S1, Normal S2, No Murmurs, No Rubs, No Gallops Vascular: No Carotid Bruits, Normal Femoral Pulses, Normal Radial Pulses, Normal Dorsalis Pedal Pulse, Normal Posterior Tibial Pulses Abdomen: Bowel Sounds Present, Soft, Non Tender, No HSM, No Organomegaly Extremities: No Cyanosis, No Clubbing, No edema Neurological: No Focal Motor or Sensory Deficit 09/14/18 06:25: Urine RBC 0 SEEN, Urine WBC 0 SEEN 09/15/18 04:45: WBC 15.5 H, RBC 4.90, Hgb 14.8, Hct 44.8, MCV 91.4, MCH 30.2, MCHC 33.0, RDW 12.8, RDW Differential 42.3, Plt Count 124 L, MPV 11.1 09/15/18 04:45: Sodium 140, Potassium 3.8, Chloride 108 H, Carbon Dioxide 25.0, Anion Gap 7, BUN 13, Creatinine 0.71, Est GFR (MDRD) Af Amer 153, Est GFR (MDRD) Non-Af 126, BUN/Creatinine Ratio 18.3, Glucose 296 H, Calcium 7.9 L, Triglycerides 483 H, Cholesterol 136, LDL Cholesterol TNP, VLDL Cholesterol TNP, HDL Cholesterol 21 L Rhythm: EKG: ECHO: Stress Test: Cardiac Cath: PCI: CT Surgery: Holter monitor: EPS: PPM: CXR: Chest CT Scan: Medical Necessity - Tobacco Use Smoking Status: Current every day smoker - STATES HE SMOKES 1-1.5 PPD FOR 6 YEARS Tobacco Use: Cigarettes Assessment/Plan 1. Coronary artery disease: The patient presents with unstable angina superimposed upon worsening anginal symptoms over the last couple of months. He was found to have a critical stenosis of his mid diagonal branch and underwent successful angioplasty and drug-eluting stenting without complications, receiving a 2.25 ex-24 Promus stent, postdilated proximally with a 2.5 mm balloon. Patient also appears to have a hazy area in the mid LAD at the bifurcation of the diagonal branch, and multiple attempts were made to try and cannulate this with a wire without success. Out of concern of possible false lumen dissection, as well as the fact the patient was asymptomatic, had CONCHITA-3 flow, and will be on aspirin, Brilinta, and will today initiate Xarelto for paroxysmal atrial fibrillation. In addition, the patient had reached his IV contrast dye threshold to avoid renal insufficiency, we elected to abort any additional wire cannulization of his LAD. My hope is that the patient's LAD lesion will heal on its own over the next several weeks. If however the patient has recurrent exertional chest pain symptoms despite angioplasty of his diagonal, he may return for repeat catheter ization and reattempted angioplasty of his mid LAD. In the meantime he will continue baby aspirin for life, Brilinta for at least 12 months, and we will start Xarelto today for anticoagulation and his paroxysmal atrial fibrillation. 2. Tobacco cessation: The patient is currently smoking, and has been since his early teens. I have no doubt that his coronary artery disease has been made worse by years of smoking. I strongly encouraged the patient, his , and his family to discontinue all tobacco products as this may cause plated aggregation or activation possibly inducing a myocardial infarction in the overall mid LAD area. 3. Hyperlipidemia: Fasting lipid profile reviewed, and aggressive LDL reduction with Lipitor therapy. Recommend LDL less than 70. 4. Hypertension: Recommend continuing Coreg, lisinopril, and repeat blood pressure check in 2 weeks time. 5. Diabetes: The patient requires aggressive diabetic control in order to avoid progression of his coronary and peripheral vascular disease. Recommend consultation with endocrinology. 6. Thank you very much for the opportunity to precipitate the cardiac care of your patient. Discussed with Dr. Bolton. Would not recommend cardiac rehab at least until 1 months time to ensure that his mid LAD area has been well-healed. Patient may be downgraded to PCU status, or transfer out of bed as needed. Code Visit Inpatient E&M: 05487 Subs Hosp L2
[2018-09-15] MEDS: TICAGRELOR 90 MG TABLET PO ×2 (09:46→21:27)
[2018-09-15] MEDS: ARIPiprazole 2 MG Tablet PO (09:46)
[2018-09-15] MEDS: DULoxetine Hcl 30 MG Capsule 90 MG PO (09:46)
[2018-09-15] MEDS: Carvedilol 3.125 MG TABLET PO ×2 (09:47→21:32)
[2018-09-15] MEDS: Sertraline 100 MG Tablet 200 MG PO (09:49)
[2018-09-15] MEDS: Lisinopril 10 MG Tablet PO (09:49)
[2018-09-15] MEDS: Pantoprazole Sodium 40 MG Tablet PO (09:49)
--- NOTE | 2018-09-15 10:00 | EKG12_ITS ---
Test Reason : AM EKG Blood Pressure : / mmHG Vent. Rate : 063 BPM Atrial Rate : 063 BPM P-R Int : 136 ms QRS Dur : 090 ms QT Int : 416 ms P-R-T Axes : 053 040 064 degrees QTc Int : 425 ms Normal sinus rhythm Confirmed by FESTUS DILLARD ([id number]), clinical editor DAVE JERRY ([id number] on 09/19/2018 5:10:15 PM Referred By: Marcie London Confirmed By:FESTUS DILLARD
--- NOTE | 2018-09-15 10:25 | CASEMGMT ---
RN CM Note: Intro role of CM to patient's . Pt is no longer on oxygen. verified pt only uses cane at home, drives, but states she usually takes him to all appointments. No concerns re: dc, no needs identified. Jhonathan TUBBSN RN ACM
--- NOTE | 2018-09-15 10:37 | PN_ITS ---
Patient Problems: Active and Suspected Problems (Last Reviewed 09/15/17 @ 12:58 by Sarah Ordonez) NSTEMI (non-ST elevated myocardial infarction) (Acute 09/14/18) Unstable angina (Acute) Subjective: Patient 47-year-old gentleman with past medical history cigar for diabetes mellitus type 2 hypertension dyslipidemia presented with chest pain and assessment of acute non-STEMI made patient underwent left heart catheterization on 09/14/2018 with intervention to a 90% mid diagonal lesion. Patient was also found to have some haziness in the LAD with questionable false lumen and intervention could not be performed. Objective: GENERAL: cooperative HEENT: Atraumatic; moist oral mucosa EYES; Anicteric, Normal Conjunctiva NECK; supple, normal thyroid, no distended JVD. RESPIRATORY: Diminished to auscultation bilaterally, CARDIOVASCULAR: Regular S1 S2, no audible murmurs GI: soft, non-tender, normoactive bowel sounds, : No Renal angle tenderness; EXTREMITIES: No edema, no clubbing, no cyanosis. MUSCULOSKELETAL: No Joint Tenderness; no muscle waisting NEURO: Awake; no lateralizing signs. SKIN: No Rash PSYCH; Normal affect Vitals/I&O's: Vital Signs Temp Pulse Resp BP Pulse Ox 98.8 F 64 14 132/79 H 97 09/15/18 08:00 09/15/18 10:00 09/15/18 10:00 09/15/18 10:00 09/15/18 10:00 Oxygen Flow Rate (L/min) 2 Oxygen Delivery Method Room Air Weight: 89.358 kg Body Mass Index (BMI) 28.3 Intake and Output for Last 24 Hours 09/13/18 09/14/18 09/15/18 23:59 23:59 23:59 Intake Total 1640 / 1640 1700 / 1700 Output Total 1300 / 1300 2049 / 2049 Balance 340 / 340 -350 / -350 Laboratory Results 09/14/18 11:44: POC Glucose 260 H 09/14/18 17:16: POC Glucose 326 H 09/14/18 22:20: POC Glucose 296 H 09/15/18 02:50: POC Glucose 309 H 09/15/18 04:45: WBC 15.5 H, RBC 4.90, Hgb 14.8, Hct 44.8, MCV 91.4, MCH 30.2, MCHC 33.0, RDW 12.8, RDW Differential 42.3, Plt Count 124 L, MPV 11.1 09/15/18 04:45: Sodium 140, Potassium 3.8, Chloride 108 H, Carbon Dioxide 25.0, Anion Gap 7, BUN 13, Creatinine 0.71, Estim Creat Clear Calc 134.23, Est GFR (MDRD) Af Amer 153, Est GFR (MDRD) Non-Af 126, BUN/Creatinine Ratio 18.3, Glucose 296 H, Calcium 7.9 L, Triglycerides 483 H, Cholesterol 136, LDL Cholesterol TNP, VLDL Cholesterol TNP, HDL Cholesterol 21 L 09/15/18 06:47: POC Glucose 237 H Current Medications Acetaminophen (Tylenol) 650 mg PO Q6H PRN PRN PRN Reason: Mild Pain (0-2/10) Al Hydroxide/Mg Hydroxide (Mylanta Ii) 30 ml PO Q6H PRN PRN PRN Reason: Gastric burning Aripiprazole (Abilify) 2 mg PO DAILY [facility] Last Admin: 09/15/18 09:46 Dose: 2 mg Aspirin (Ecotrin) 81 mg PO DAILY@0800 [facility] Last Admin: 09/15/18 08:26 Dose: 81 mg Atorvastatin Calcium (Lipitor) 80 mg PO QHS [facility] Last Admin: 09/14/18 21:21 Dose: 80 mg Atropine Sulfate () 0.5 mg IV UD PRN PRN Reason: HR <50 bpm Carvedilol (Coreg) 3.125 mg PO BID [facility] Last Admin: 09/15/18 09:47 Dose: 3.125 mg Diazepam (Valium) 5 mg PO Q6H PRN PRN PRN Reason: BACK SPASMS/ANXIETY Duloxetine HCl (Cymbalta) 120 mg PO DAILY [facility] Heparin Sodium (Beef Lung) (Heparin 500 Unit/5 Ml (100/Ml)) 500 unit IV UD PRN PRN Reason: HEPARIN FLUSH Heparin Sodium (Porcine) (Heparin Na) 0 unit IV UD PRN; Protocol Hydralazine HCl (Apresoline Iv) 10 mg IV Q4H PRN PRN PRN Reason: SBP > 160 Hydromorphone HCl (Dilaudid Inj) 1 mg IV Q2H PRN PRN PRN Reason: SEVERE PAIN (6-10/10) Last Admin: 09/14/18 10:55 Dose: 1 mg Hydromorphone HCl (Dilaudid Tablet) 4 mg PO Q6 [facility] Last Admin: 09/15/18 06:48 Dose: 4 mg Insulin Human Lispro (Humalog Kwikpen (Bkc)) 0 unit SC ACHS [facility]; Protocol Last Admin: 09/15/18 08:27 Dose: 3 u Labetalol HCl (Trandate) 5 mg IV X1 PRN PRN Reason: SBP > 160 when pulling sheath Lisinopril (Zestril) 10 mg PO DAILY [facility] Last Admin: 09/15/18 09:49 Dose: 10 mg Magnesium Hydroxide (Milk Of Magnesia) 30 ml PO DAILY PRN PRN Reason: Constipation Morphine Sulfate () 2 mg IV Q4H PRN PRN PRN Reason: Mild back pain (0-2/10) Nitroglycerin (Nitrostat) 0.4 mg SUBLINGUAL Q5M PRN PRN Reason: CARDIAC/CHEST PAIN Last Admin: 09/14/18 02:11 Dose: 0.4 mg Ondansetron HCl (Zofran) 4 mg IV Q8H PRN PRN PRN Reason: NAUSEA/VOMITING Oxycodone HCl (Oxycontin) 20 mg PO BID [facility] Last Admin: 09/15/18 09:45 Dose: 20 mg Pantoprazole Sodium (Protonix) 40 mg PO DAILY [facility] Last Admin: 09/15/18 09:49 Dose: 40 mg [facility] Last Admin: 09/15/18 08:26 Dose: 15 mg Sertraline HCl (Zoloft) 200 mg PO DAILY [facility] Last Admin: 09/15/18 09:49 Dose: 200 mg Sodium Chloride () 5 - 15 ml IV UD PRN PRN Reason: SALINE FLUSH Sodium Chloride () 500 ml IV BOLUS PRN PRN Reason: VASO-VAGAL PROTOCOL Tiagabine HCl (Gabitril) 4 mg PO DAILY [facility] Last Admin: 09/15/18 09:48 Dose: 4 mg Tiagabine HCl (Gabitril) 8 mg PO QHS [facility] Last Admin: 09/14/18 22:17 Dose: 8 mg Ticagrelor (Brilinta) 90 mg PO BID [facility] Last Admin: 09/15/18 09:46 Dose: 90 mg Tizanidine HCl (Zanaflex) 4 mg PO Q8H PRN PRN PRN Reason: PAIN Medical Necessity - Tobacco Use Smoking Status: Current every day smoker - STATES HE SMOKES 1-1.5 PPD FOR 6 YEARS Tobacco Use: Cigarettes Assessment/Plan All Active Problems (Last Reviewed 09/15/17 @ 12:58 by Sarah Ordonez) NSTEMI (non-ST elevated myocardial infarction) (Acute 09/14/18) Unstable angina (Acute) Patient 47-year-old gentleman with past medical history cigar for diabetes mellitus type 2 hypertension dyslipidemia presented with chest pain and assessment of acute non-STEMI made patient underwent left heart catheterization on 09/14/2018 with intervention to a 90% mid diagonal lesion. Patient was also found to have some haziness in the LAD with questionable false lumen and intervention could not be performed. 1. Acute non-STEMI patient was admitted to a monitored bed management protocol underwent left heart catheterization by Dr. Marshall. Patient was found to critical stenosis of his mid diagonal branch and underwent successful angioplasty and drug-eluting stenting. Patient was also found to have some haziness in the LAD with questionable false lumen and intervention could not be performed. 2. Paroxysmal atrial fibrillation rate controlled patient started on systemic anticoagulation with Xarelto. Rate remains controlled 3. Diabetes mellitus type II:. Placed on Accu-Cheks a.c. and at bedtime and covered with sliding scale insulin 4. Hypertension-blood pressure controlled, home medications continued with dose adjustment as needed 5. Dyslipidemia-patient is on statin therapy, continued at home dose 6. Tobacco dependence counseled on cessation, offered nicotine patch for tobacco cravings 7. Obstructive sleep apnea 8. Depression with anxiety 9. DVT prophylaxis on Xarelto Active Medications Acetaminophen (Tylenol) 650 mg PO Q6H PRN PRN PRN Reason: Mild Pain (0-2/10) Al Hydroxide/Mg Hydroxide (Mylanta Ii) 30 ml PO Q6H PRN PRN PRN Reason: Gastric burning Aripiprazole (Abilify) 2 mg PO DAILY [facility] Last Admin: 09/15/18 09:46 Dose: 2 mg Aspirin (Ecotrin) 81 mg PO DAILY@0800 [facility] Last Admin: 09/15/18 08:26 Dose: 81 mg Atorvastatin Calcium (Lipitor) 80 mg PO QHS [facility] Last Admin: 09/14/18 21:21 Dose: 80 mg Atropine Sulfate () 0.5 mg IV UD PRN PRN Reason: HR <50 bpm Carvedilol (Coreg) 3.125 mg PO BID [facility] Last Admin: 09/15/18 09:47 Dose: 3.125 mg Diazepam (Valium) 5 mg PO Q6H PRN PRN PRN Reason: BACK SPASMS/ANXIETY Duloxetine HCl (Cymbalta) 120 mg PO DAILY [facility] Heparin Sodium (Beef Lung) (Heparin 500 Unit/5 Ml (100/Ml)) 500 unit IV UD PRN PRN Reason: HEPARIN FLUSH Heparin Sodium (Porcine) (Heparin Na) 0 unit IV UD PRN; Protocol Hydralazine HCl (Apresoline Iv) 10 mg IV Q4H PRN PRN PRN Reason: SBP > 160 Hydromorphone HCl (Dilaudid Inj) 1 mg IV Q2H PRN PRN PRN Reason: SEVERE PAIN (6-10/10) Last Admin: 09/14/18 10:55 Dose: 1 mg Hydromorphone HCl (Dilaudid Tablet) 4 mg PO Q6 [facility] Last Admin: 09/15/18 06:48 Dose: 4 mg Insulin Human Lispro (Humalog Kwikpen (Bkc)) 0 unit SC [facility]; Protocol Last Admin: 09/15/18 08:27 Dose: 3 u Labetalol HCl (Trandate) 5 mg IV X1 PRN PRN Reason: SBP > 160 when pulling sheath Lisinopril (Zestril) 10 mg PO DAILY [facility] Last Admin: 09/15/18 09:49 Dose: 10 mg Magnesium Hydroxide (Milk Of Magnesia) 30 ml PO DAILY PRN PRN Reason: Constipation Morphine Sulfate () 2 mg IV Q4H PRN PRN PRN Reason: Mild back pain (0-2/10) Nitroglycerin (Nitrostat) 0.4 mg SUBLINGUAL Q5M PRN PRN Reason: CARDIAC/CHEST PAIN Last Admin: 09/14/18 02:11 Dose: 0.4 mg Ondansetron HCl (Zofran) 4 mg IV Q8H PRN PRN PRN Reason: NAUSEA/VOMITING Oxycodone HCl (Oxycontin) 20 mg PO BID [facility] Last Admin: 09/15/18 09:45 Dose: 20 mg Pantoprazole Sodium (Protonix) 40 mg PO DAILY [facility] Last Admin: 09/15/18 09:49 Dose: 40 mg [facility]) [facility] Last Admin: 09/15/18 08:26 Dose: 15 mg Sertraline HCl (Zoloft) 200 mg PO DAILY [facility] Last Admin: 09/15/18 09:49 Dose: 200 mg Sodium Chloride () 5 - 15 ml IV UD PRN PRN Reason: SALINE FLUSH Sodium Chloride () 500 ml IV BOLUS PRN PRN Reason: VASO-VAGAL PROTOCOL Tiagabine HCl (Gabitril) 4 mg PO DAILY [facility] Last Admin: 09/15/18 09:48 Dose: 4 mg Tiagabine HCl (Gabitril) 8 mg PO QHS [facility] Last Admin: 09/14/18 22:17 Dose: 8 mg Ticagrelor (Brilinta) 90 mg PO BID [facility] Last Admin: 09/15/18 09:46 Dose: 90 mg Tizanidine HCl (Zanaflex) 4 mg PO Q8H PRN PRN PRN Reason: PAIN Code Visit Inpatient E&M: 93711 [facility] Hosp L3
[2018-09-15 14:01] LABS: Bedside Glucose 223 mg/dL (70-110)
[2018-09-15] MEDS: diazePAM 5 MG Tablet PO (16:05)
[2018-09-15 17:35] LABS: Bedside Glucose 223 mg/dL (70-110)
[2018-09-15] MEDS: Atorvastatin Calcium 80 MG Tablet PO (21:27)
[2018-09-15 22:00] LABS: Bedside Glucose 282 mg/dL (70-110)
[2018-09-16] VITALS (8 sets, daily range): BP systolic 130–142; BP diastolic 79–83; PULSE 62–82; RESP 12–16; TEMP 36.4–36.8; O2SAT 94–96
[2018-09-16] MEDS: HYDROmorphone 2 MG TABLET 4 MG PO ×2 (06:18→11:44)
[2018-09-16 07:05] LABS: Bedside Glucose 310 mg/dL (70-110)
[2018-09-16 07:35] LABS: Anion Gap 7 (5-15); BUN 13 mg/dL (7-18); BUN/Creat Ratio 18.3 RATIO (10-20); Calcium,Total 8.4 mg/dL (8.5-10.1); Chloride 108 mmol/L (98-107); Creatinine, Serum 0.71 mg/dL (0.70-1.30); EST Glomerular Filtration Rate 127 mL/min (>60); Est Glom Filt Rate - Afr Amer 153 mL/min (>60); Estimated Creatinine Clearance 134.23 ml/min; Glucose 300 mg/dL (74-106); Potassium 3.6 mmol/L (3.5-5.1); Sodium Level 141 mmol/L (136-145)
[2018-09-16] MEDS: Insulin Lispro 100 UNIT/ML INSULN.PEN SC ×2 (09:31→11:45)
[2018-09-16] MEDS: Aspirin E.C. 81 MG Tablet PO (09:35)
[2018-09-16] MEDS: TICAGRELOR 90 MG TABLET PO (09:36)
[2018-09-16] MEDS: Carvedilol 3.125 MG TABLET PO (09:36)
[2018-09-16] MEDS: Rivaroxaban 15 MG Tablet PO (09:36)
[2018-09-16] MEDS: ARIPiprazole 2 MG Tablet PO (09:38)
[2018-09-16] MEDS: Pantoprazole Sodium 40 MG Tablet PO (09:40)
[2018-09-16] MEDS: Lisinopril 10 MG Tablet PO (09:40)
[2018-09-16] MEDS: Sertraline 100 MG Tablet 200 MG PO (09:41)
[2018-09-16] MEDS: DULoxetine Hcl 60 MG Capsule 120 MG PO (09:49)
--- NOTE | 2018-09-16 10:00 | EKG12_ITS ---
Test Reason : AM EKG Blood Pressure : / mmHG Vent. Rate : 062 BPM Atrial Rate : 062 BPM P-R Int : 136 ms QRS Dur : 096 ms QT Int : 412 ms P-R-T Axes : 057 042 088 degrees QTc Int : 418 ms Normal sinus rhythm Septal infarct , age undetermined Abnormal ECG When compared with ECG of 15-SEP-2018 04:52, MANUAL COMPARISON REQUIRED, DATA IS UNCONFIRMED Confirmed by FESTUS DILLARD ([id number]), editorial cartoonist DAVE JERRY ([id number] on 09/19/2018 5:17:31 PM Referred By: Marcie London Confirmed By:FESTUS DILLARD
[2018-09-16 11:50] LABS: Bedside Glucose 276 mg/dL (70-110)
--- NOTE | 2018-09-16 14:55 | PN.CARD_ITS ---
Subjectve: Patient doing very well overnight, no chest pain or angina. Telemetry negative. Right groin is clean/dry/intact with a very small amount of ecchymosis in the medial portion, but no hematoma, tenderness, or bruits. 2+ DP PT pulses bilaterally. EKG with no changes. Objective: Vital Signs Temp Pulse Resp BP Pulse Ox 97.6 F L 73 16 131/83 H 95 09/16/18 13:34 09/16/18 13:34 09/16/18 13:34 09/16/18 13:34 09/16/18 13:34 Oxygen Flow Rate (L/min) 2 Oxygen Delivery Method Room Air Weight: 197 lb 0.011 oz Body Mass Index (BMI) 28.3 Intake and Output for Last 24 Hours 09/14/18 09/15/18 09/16/18 23:59 23:59 23:59 Intake Total 1640 / 1640 3050 / 3050 720 / 720 Output Total 1300 / 1300 3325 / 3325 Balance 340 / 340 -275 / -275 720 / 720 General: Awake, Alert, Oriented x 3 HEENT: PERRL, EOMI, Sclera Non Icteric Neck: Supple, Good ROM, No Lymph Node Enlargement Lungs: Clear to auscultation Cardiovascular: Regular Rhythm, Normal S1, Normal S2, No Murmurs, No Rubs, No Gallops Vascular: No Carotid Bruits, Normal Femoral Pulses, Normal Radial Pulses, Normal Dorsalis Pedal Pulse, Normal Posterior Tibial Pulses Abdomen: Bowel Sounds Present, Soft, Non Tender, No HSM, No Organomegaly Extremities: No Cyanosis, No Clubbing, No edema Neurological: No Focal Motor or Sensory Deficit 09/16/18 06:30: Sodium 141, Potassium 3.6, Chloride 108 H, Carbon Dioxide 26.0, Anion Gap 7, BUN 13, Creatinine 0.71, Est GFR (MDRD) Af Amer 153, Est GFR (MDRD) Non-Af 127, BUN/Creatinine Ratio 18.3, Glucose 300 H, Calcium 8.4 L Rhythm: EKG: ECHO: Stress Test: Cardiac Cath: PCI: CT Surgery: Holter monitor: EPS: PPM: CXR: Chest CT Scan: Medical Necessity - Tobacco Use Smoking Status: Current every day smoker - STATES HE SMOKES 1-1.5 PPD FOR 6 YEARS Tobacco Use: Cigarettes Assessment/Plan 1. Coronary artery disease: The patient presented with unstable angina superimposed upon worsening anginal symptoms over the last couple of months. He was found to have a critical stenosis of his mid diagonal branch and underwent successful angioplasty and drug-eluting stenting without complications, receiving a 2.25 ex-24 Promus stent, postdilated proximally with a 2.5 mm balloon. Patient also appears to have a hazy area in the mid LAD at the bifurcation of the diagonal branch, and multiple attempts were made to try and cannulate this with a wire without success. Out of concern of possible false lumen dissection, as well as the fact the patient was asymptomatic, had CONCHITA-3 flow, and will be on aspirin, Brilinta, and will today initiate Xarelto for paroxysmal atrial fibrillation. In addition, the patient had reached his IV contrast dye threshold to avoid renal insufficiency, we elected to abort any additional wire cannulization of his LAD. My hope is that the patient's LAD lesion will heal on its own over the next several weeks. If however the patient has recurrent exertional chest pain symptoms despite angioplasty of his diagonal, he may return for repeat catheterization and reattempted angioplasty of his mid LAD. In the meantime he will continue baby aspirin for life, Brilinta for at least 12 months, and we will start Xarelto today for anticoagulation and his paroxysmal atrial fibrillation. He has had no further chest pain, arrhythmias, and is ambulated up and down the hallways without any symptoms. I have instructed him and his to do no exertion over the next 3 weeks time. This includes not going to family events, shopping, or doing chores at home. 2. Tobacco cessation: The patient is currently smoking, and has been since his early teens. I have no doubt that his coronary artery disease has been made worse by years of smoking. I strongly encouraged the patient, his , and his family to discontinue all tobacco products as this may cause platelet aggreg ation or activation possibly inducing a myocardial infarction in the overall mid LAD area. 3. Hyperlipidemia: Fasting lipid profile reviewed, and aggressive LDL reduction with Lipitor therapy. Recommend LDL less than 70. 4. Hypertension: Recommend continuing Coreg, lisinopril, and repeat blood pressure check in 2 weeks time. 5. Diabetes: The patient requires aggressive diabetic control in order to avoid progression of his coronary and peripheral vascular disease. Recommend consultation with endocrinology. 6. Thank you very much for the opportunity to precipitate the cardiac care of y our patient. Would not recommend cardiac rehab at least until 1 months time to ensure that his mid LAD area has been well-healed. 7. Patient may be discharged home by primary care service. Code Visit Inpatient E&M: 80883 Subs Hosp L2
--- NOTE | 2018-09-16 16:29 | DCINST_ITS ---
- Discharge Diagnoses Current Active Problems: Current Active and Chronic Problems (Last Reviewed 09/15/17 @ 12:58 by Sarah Ordonez) Stented coronary artery (Chronic 09/14/18) Successful PTCA/VENANCIO mid DIAG#1 with a 2.25 x 24 Promus Synergy (Unable to wire mid LAD despite trying multiple wires. Lesion is clustered at a bifurcation with several septals and due to possibility of accessing false lumen and reaching iv contrast dye threshold, no further attempts were made to cannulate with a wire. MID LAD lesion looked identical to original cath; no perforation and pt is completely asymptomatic. Will proceed with medical management with asa/brilinta and xeralto for PAF and allow vesselt to heal. if pt has recurrent CP or anterior ischemia, will consider another PCI attempt to mid LAD with new IV dye load) NSTEMI (non-ST elevated myocardial infarction) (Acute 09/14/18) Unstable angina (Acute) Anxiety and depression (Chronic) Tobacco use (Chronic) You will use the following diet at home:: Calorie/Carbohydrate Controlled (specify 1200, 1400, etc), Cardiac Your food should be the consistency of: Regular Your liquids should be the consistency of: Regular/Thin Discharge Activity: - - work up to walking 30 minutes a day 5-6 times a week. No strenuous activity until seen by Dr. Marshall in the office in 2 weeks May shower in (days): 1 May resume sexual activity in: 10-14 days Lifting Restrictions: 10 lbs Call your doctor if your incision/area has: Continuous Slow Oozing, Sudden Increased Bleeding, Increased Pain/ Swelling, Increased Redness, Foul Smelling Discharge, Swelling at the incision site Call your doctor if you observe: Fever of 101 or Higher, Shortness of breath, Dizziness, Fainting spells, Swelling in the ankles, Chest pain Remove Dressing in (days):: 1 Allergies/Adverse Reactions: Allergies pregabalin [From Lyrica] Adverse Reaction (Verified 09/13/18 20:31) Itching Medications to take at Discharge Duloxetine Hcl [Cymbalta] 120 mg PO DAILY 02/17/16 Hydromorphone HCl [Dilaudid] 4 mg PO Q6H 02/17/16 Oxycodone HCl [Oxycontin] 20 mg PO BID 02/17/16 Sertraline HCl [Zoloft] 200 mg PO DAILY 02/17/16 Tiagabine HCl [Gabitril] 4 mg PO DAILY 02/17/16 Tizanidine HCl [Zanaflex] 8 mg PO QHS 02/17/16 aripiprazole 2 mg tablet 2 mg PO ONCE 07/12/17 lisinopril 10 mg tablet 10 mg PO QDAY 07/12/17 metformin 500 mg tablet 1,000 mg PO BID 07/12/17 Magnesium 250 mg PO DAILY 09/14/18 Tim Red 09/14/18 Multivitamin with Minerals [Multiple Vitamin] 1 each PO DAILY 09/14/18 Omeprazole [Prilosec] 20 mg PO DAILY 09/14/18 Aspirin E.C. [Ecotrin] 81 mg PO DAILY@0800 tablet 09/16/18 Atorvastatin Calcium [Lipitor] 80 mg PO QHS #30 tablet 09/16/18 Carvedilol [Coreg (Beta Dale)] 3.125 mg PO BID #60 tablet 09/16/18 Nitroglycerin [Nitrostat] 0.4 mg SUBLINGUAL Q5M PRN #1 bottle 09/16/18 Rivaroxaban [Xarelto] 15 mg PO DAILYCM #30 tablet 09/16/18 Ticagrelor [Brilinta] 90 mg PO BID #60 tablet 09/16/18 The following prescriptions were given: Atorvastatin Calcium [Lipitor] 80 mg PO QHS #30 tablet Nitroglycerin [Nitrostat] 0.4 mg SUBLINGUAL Q5M PRN #1 bottle PRN Reason: Cardiac/Chest Pain Carvedilol [Coreg (Beta Dale)] 3.125 mg PO BID #60 tablet Ticagrelor [Brilinta] 90 mg PO BID #60 tablet Orders to be completed after discharge: Phase II, Outpatient Cardiac Rehab Location: None Selected Primary Care Physician: Debra Fabian [Primary Care Provider] - Please follow up with your Primary Care Physician in: 3-5 days Test Results: Test results from this visit will be discussed in further detail at your follow- up appointment, if applicable. Please Follow Up With: Gerber Marshall MD When: 2 weeks Proposed Discharge Date: 09/16/18
--- NOTE | 2018-09-16 16:34 | DS.PCM_ITS ---
Discharge Date and Diagnosis Date of Admission: 09/13/18 Date of Discharge: 09/16/18 - Primary Discharge Diagnosis Active and Suspected Problems (Last Reviewed 09/15/17 @ 12:58 by Sarah Ordonez) NSTEMI (non-ST elevated myocardial infarction) (Acute 09/14/18) Unstable angina (Acute) Paroxysmal atrial fibrillation Mild ischemic cardiomyopathy with a 45-50% ejection fraction and segmental wall motion abnormalities - Secondary Discharge Diagnosis Chronic Problems (Last Reviewed 09/15/17 @ 12:58 by Sarah Ordonez) Stented coronary artery (Chronic 09/14/18) Successful PTCA/VENANCIO mid DIAG#1 with a 2.25 x 24 Promus Synergy (Unable to wire mid LAD despite trying multiple wires. Lesion is clustered at a bifurcation with several septals and due to possibility of accessing false lumen and reaching iv contrast dye threshold, no further attempts were made to cannulate with a wire. MID LAD lesion looked identical to original cath; no perforation and pt is completely asymptomatic. Will proceed with medical management with asa/brilinta and xeralto for PAF and allow vesselt to heal. if pt has recurrent CP or anterior ischemia, will consider another PCI attempt to mid LAD with new IV dye load) Anxiety and depression (Chronic) Tobacco use (Chronic) Benign essential HTN (Chronic) Chronic pain (Chronic) Depression (Chronic) DM2 (diabetes mellitus, type 2) (Chronic)-uncontrolled, hemoglobin A1c is 9. HLD (hyperlipidemia) (Chronic)-uncontrolled Hospital Course and Treatment Imaging Results: Clinical Impression(s) from Imaging Studies Chest X-Ray 09/13/18 22:10 IMPRESSION: Normal x-ray examination of the chest. Electronically Signed: Teresa Patel MD at 22:39 EDT Tel , Service support , Laboratory Results - last 24 hr 09/15/18 09/16/18 09/16/18 21:21 06:30 06:42 Sodium 141 Potassium 3.6 Chloride 108 H Carbon Dioxide 26.0 Anion Gap 7 BUN 13 Creatinine 0.71 Estim Creat Clear Calc 134.23 Est GFR (MDRD) Af Amer 153 Est GFR (MDRD) Non-Af 127 BUN/Creatinine Ratio 18.3 Glucose 300 H Calcium 8.4 L POC Glucose 282 H 310 H 09/16/18 11:42 Sodium Potassium Chloride Carbon Dioxide Anion Gap BUN Creatinine Estim Creat Clear Calc Est GFR (MDRD) Af Amer Est GFR (MDRD) Non-Af BUN/Creatinine Ratio Glucose Calcium POC Glucose [address] Gerber [facility] Operations: None Procedures: 2-D Echocardiogram - Interpretation Summary Mildly dilated left ventricle. The estimated ejection fraction is 45-50 %. Normal diastology for age. Mid-Anterior : Mildly hypokinetic Mid-anteroseptal : Mildly hypokinetic Anterior [place] : Mildly hypokinetic Trivial tricuspid valve insufficiency. Right ventricular systolic pressure estimated to be 27 mmHg. There is no comparison study available., Cardiac catheterization Summary of Care Provided: The Patient is a 47-year-old gentleman with a past medical history significant for diabetes mellitus type 2, hypertension, chronic pain syndrome, tobacco dependence and dyslipidemia who presented to the emergency department at [facility] with chest pain. He waqs diagnosed with acute non-STEMI and underwent left heart catheterization on 09/14/2018 with intervention to a 90% mid diagonal lesion. Patient was also found to have some haziness in the LAD with questionable false lumen and intervention could not be performed. 1. Acute non-STEMI patient was admitted to a monitored bed management protocol underwent left heart catheterization by Dr. Marshall. Patient was found to critical stenosis of his mid diagonal branch and underwent successful angioplasty and drug-eluting stenting. Patient was also found to have some haziness in the LAD with questionable false lumen and intervention could not be performed. 2. Paroxysmal atrial fibrillation rate controlled patient started on systemic anticoagulation with Xarelto. Rate remains controlled 3. Diabetes mellitus type II:. Placed on Accu-Cheks a.c. and at bedtime and covered with sliding scale insulin 4. Hypertension-blood pressure controlled, home medications continued with dose adjustment as needed 5. Dyslipidemia-patient is on statin therapy, continued at home dose 6. Tobacco dependence counseled on cessation, offered nicotine patch for tobacco cravings 7. Obstructive sleep apnea 8. Depression with anxiety 9. DVT prophylaxis on Xarelto He was discharged home 09/16/2018 with a statin, a beta-dale, 2 antiplatelet agents which he will take for at least 1 year, Xarelto for AF, an SELVIN inhibitor and NTG SL and NTG PRN for chest pain. He will follow up with Dr. Marshall in 2 weeks. No lifting > 10 lbs, no sex for 10-14 days and no strenuous exercise until seen by Dr. Marshall. GENERAL: cooperative HEENT: Atraumatic; moist oral mucosa EYES; Anicteric, Normal Conjunctiva NECK; supple, normal thyroid, no distended JVD. RESPIRATORY: Diminished to auscultation bilaterally, CARDIOVASCULAR: Regular S1 S2, no audible murmurs GI: soft, non-tender, normoactive bowel sounds, : No Renal angle tenderness; EXTREMITIES: No edema, no clubbing, no cyanosis. MUSCULOSKELETAL: No Joint Tenderness; no muscle waisting NEURO: Awake; no lateralizing signs. SKIN: No Rash PSYCH; Normal affect - Physical Exam Vital Signs Temp Pulse Resp BP Pulse Ox 97.6 F L 82 16 131/83 H 95 09/16/18 13:34 09/16/18 15:44 09/16/18 13:34 09/16/18 13:34 09/16/18 13:34 Oxygen Flow Rate (L/min) 2 Oxygen Delivery Method Room Air Weight: 197 lb 0.011 oz Body Mass Index (BMI) 28.3 Intake and Output for Last 24 Hours 09/14/18 09/15/18 09/16/18 23:59 23:59 23:59 Intake Total 1640 / 1640 3050 / 3050 720 / 720 Output Total 1300 / 1300 3325 / 3325 Balance 340 / 340 -275 / -275 720 / 720 Laboratory Tests Past 24 Hrs 09/16/18 06:30 Sodium 141 Potassium 3.6 Chloride 108 H Carbon Dioxide 26.0 Anion Gap 7 BUN 13 Creatinine 0.71 Estim Creat Clear Calc 134.23 Est GFR (MDRD) Af Amer 153 Est GFR (MDRD) Non-Af 127 BUN/Creatinine Ratio 18.3 Glucose 300 H Calcium 8.4 L POC Glucose 09/16/18 09/16/18 09/15/18 11:42 06:42 21:21 POC Glucose 276 H 310 H 282 H 09/15/18 17:30 POC Glucose 223 H Discharge Activity: - - work up to walking 30 minutes a day 5-6 times a week. No strenuous activity until seen by Dr. Marshall in the office in 2 weeks May shower in (days): 1 May resume sexual activity in: 10-14 days Call your doctor if your incision/area has: Continuous Slow Oozing, Sudden Increased Bleeding, Increased Pain/ Swelling, Increased Redness, Foul Smelling Discharge, Swelling at the incision site Call your doctor if you observe: Fever of 101 or Higher, Shortness of breath, Dizziness, Fainting spells, Swelling in the ankles, Chest pain Remove Dressing in (days):: 1 Home Medications: Medications to take at Discharge Duloxetine Hcl [Cymbalta] 120 mg PO DAILY 02/17/16 Hydromorphone HCl [Dilaudid] 4 mg PO Q6H 02/17/16 Oxycodone HCl [Oxycontin] 20 mg PO BID 02/17/16 Sertraline HCl [Zoloft] 200 mg PO DAILY 02/17/16 Tiagabine HCl [Gabitril] 4 mg PO DAILY 02/17/16 Tizanidine HCl [Zanaflex] 8 mg PO QHS 02/17/16 aripiprazole 2 mg tablet 2 mg PO ONCE 07/12/17 lisinopril 10 mg tablet 10 mg PO QDAY 07/12/17 metformin 500 mg tablet 1,000 mg PO BID 07/12/17 Magnesium 250 mg PO DAILY 09/14/18 Tim Red 09/14/18 Multivitamin with Minerals [Multiple Vitamin] 1 each PO DAILY 09/14/18 Omeprazole [Prilosec] 20 mg PO DAILY 09/14/18 Aspirin E.C. [Ecotrin] 81 mg PO DAILY@0800 tablet 09/16/18 Atorvastatin Calcium [Lipitor] 80 mg PO QHS #30 tablet 09/16/18 Carvedilol [Coreg (Beta Dale)] 3.125 mg PO BID #60 tablet 09/16/18 Nitroglycerin [Nitrostat] 0.4 mg SUBLINGUAL Q5M PRN #1 bottle 09/16/18 Rivaroxaban [Xarelto] 15 mg PO DAILYCM #30 tablet 09/16/18 Ticagrelor [Brilinta] 90 mg PO BID #60 tablet 09/16/18 Following Prescrptions Were Given to Patient: Atorvastatin Calcium [Lipitor] 80 mg PO QHS #30 tablet Nitroglycerin [Nitrostat] 0.4 mg SUBLINGUAL Q5M PRN #1 bottle PRN Reason: Cardiac/Chest Pain Carvedilol [Coreg (Beta Dale)] 3.125 mg PO BID #60 tablet Ticagrelor [Brilinta] 90 mg PO BID #60 tablet Other Amb Orders: Phase II, Outpatient Cardiac Rehab Location: None Selected Primary Care Physician: Debra Fabian [Primary Care Provider] - Please follow up with your Primary Care Physician in: 3-5 days Please Follow Up With: Gerber Marshall MD When: 2 weeks Disposition: Home Minutes spent on discharge:: 35 Patient Condition:: Good Medical Necessity - Tobacco Use Smoking Status: Current every day smoker - STATES HE SMOKES 1-1.5 PPD FOR 6 YEARS.....counselled to discontinue smoking Tobacco Use: Cigarettes Meaningful Use Info Meaningful Use Diagnoses (Choose all that apply): AMI - AMI Aspirin given w/in 24hrs of arrival?: Yes ASA at discharge?: Yes Statins at discharge?: Yes Selvin/ARB at discharge?: Yes Beta Dale at discharge?: Yes Done w/ Acute AL measure.: Yes Code Visit Inpatient E&M: 96215 Disch Hosp
== END 2018-09-16 16:51 | disposition home or self-care (01) | DRG 247 ==
LOC: ED 22:20 → PCU 22:54 → ICU 09-14 09:17 → PCU 09-16 07:27 → ICU 09-16 08:50
PROVIDERS: Internal Medicine; Internal Medicine Cardiovascular Disease; Admitting Provider Family Medicine; Emergency Provider Emergency Medicine; Family Provider Family Medicine; PCP Family Medicine; Referring Provider Family Medicine; Visit Provider Internal Medicine
DX: I21.4 Non-ST elevation (NSTEMI) myocardial infarction (principal); I25.110 Atherosclerotic heart disease of native coronary artery with unstable angina pectoris; I48.0 Paroxysmal atrial fibrillation; I25.5 Ischemic cardiomyopathy; E78.5 Hyperlipidemia, unspecified; G89.29 Other chronic pain; I10 Essential (primary) hypertension; E11.65 Type 2 diabetes mellitus with hyperglycemia; G47.33 Obstructive sleep apnea (adult) (pediatric); F41.8 Other specified anxiety disorders; F17.210 Nicotine dependence, cigarettes, uncomplicated; Z79.84 Long term (current) use of oral hypoglycemic drugs
CPT/HCPCS: 36415; 71045; 80048; 80053; 80061; 81001; 82962; 83036; 83735; 84484; 85025; 85027; 85347; 85610; 85730; 92928; 93005; 93306; 93458; 99152; 99153; 99283; 99406; C1760; J7030; Q9957; A4216; C1725; C1769; C1874; C1887; C1894; C9600; Q9967

== ENCOUNTER 2018-10-05 23:28 | Emergency (ER) | payer MEDICARE, SELFPAY ==
[2018-09-14 13:29] VITALS: BMI 28.3
[2018-09-22 14:57] VITALS: BMI 26.9
--- NOTE | 2018-10-05 00:15 | RAD_ITS ---
HISTORY: pt stated heart attack 3 wks ago 1stent having same symptoms lt arm numbness up to neck exsmoker quit 3 wks ago EXAM:XR Chest 2 Views COMPARISON: 09/13/2018 FINDINGS: EKG leads in place. No significant change. Normal heart size. Chronic mild elevation of the right hemidiaphragm. No vascular congestion, pleural effusion, or acute pulmonary infiltration. No pneumothorax. The bony thorax appears intact. RAD/Chest PA and Lateral IMPRESSION: No acute cardiopulmonary disease. No significant interval change. at 0246 Reported and signed by: Brandyn Blackman MD Electronically Signed: Brandyn Blackman, at 2:45 EDT Tel , Service support ,
[2018-10-05 23:29] VITALS: BP 114/67; PULSE 110; RESP 16; TEMP 36.7; O2SAT 98; BMI 28.0
--- NOTE | 2018-10-05 23:45 | EKG12_ITS ---
Test Reason : REPEAT Blood Pressure : / mmHG Vent. Rate : 076 BPM Atrial Rate : 076 BPM P-R Int : 140 ms QRS Dur : 084 ms QT Int : 402 ms P-R-T Axes : 058 036 088 degrees QTc Int : 452 ms Normal sinus rhythm Septal infarct (cited on or before 16-SEP-2018), age undetermined Abnormal ECG Confirmed by BIANKA LEGGETT, AMIE ([id number]), editor index ITALIA JORDAN ([id number]) on 10/07/2018 11:01:33 AM Referred By: OUSMANE Confirmed By:AMIE CARLTON MD
[2018-10-05] MEDS: Aspirin 81 MG TAB.CHEW 324 MG PO (23:50)
[2018-10-05] MEDS: Ondansetron 4 MG/2 ML Vial IV (23:54)
[2018-10-05] MEDS: Morphine 4 MG/ML Syringe IV (23:55)
[2018-10-06] VITALS: O2SAT 94
[2018-10-06 00:19] LABS: Absolute Lymphocyte Count 3.51 X10^3/ul (0.83-4.51); Absolute Neutrophil Count 7.6 X10^3/uL (2.0-7.7); Basophil# 0.05 X10^3/uL; Basophil% 0.4 % (0-1); Eosinophil# 0.19 X10^3/uL; Eosinophils% 1.5 % (0-5); Hematocrit 46.4 % (40-54); Hemoglobin 15.8 g/dl (13.0-16.5); Lymphocyte # 3.51 X10^3/ul (4.0); Lymphocyte % 28.2 % (19-41); Mean Corp Hgb Conc 34.1 g/gl (32-36); Mean Corpuscular Volume 88.2 fL (80-94); Mean Platelet Vol. 10.5 fl (6.2-12.0); Neutrophil # 7.63 X10^3/uL (2.7-7.7); Neutrophil % 61.3 % (47-70); Platelet Count 181 K/mm3 (150-450); RBC Distribution Width CV 12.8 % (11.6-14.6); RBC Distribution Width SD 40.9 fl (35.1-43.9); Red Blood Count 5.26 M/mm3 (4.6-6.2); White Blood Count 12.5 K/mm3 (4.4-11.0)
[2018-10-06 00:20] LABS: POSITIVE COUNT NO; POSITIVE DIFFERENTIAL NO; POSITIVE MORPHOLOGY NO
[2018-10-06 00:43] LABS: Anion Gap 7 (5-15); BUN 14 mg/dL (7-18); BUN/Creat Ratio 14.2 RATIO (10-20); Calcium,Total 8.7 mg/dL (8.5-10.1); Chloride 104 mmol/L (98-107); Creatinine, Serum 0.98 mg/dL (0.70-1.30); EST Glomerular Filtration Rate 87 mL/min (>60); Est Glom Filt Rate - Afr Amer 105 mL/min (>60); Estimated Creatinine Clearance 97.25 ml/min; Glucose 267 mg/dL (74-106); Potassium 3.5 mmol/L (3.5-5.1); Sodium Level 138 mmol/L (136-145)
--- NOTE | 2018-10-06 01:18 | EKG12_ITS ---
Test Reason : CP Blood Pressure : / mmHG Vent. Rate : 104 BPM Atrial Rate : 104 BPM P-R Int : 138 ms QRS Dur : 086 ms QT Int : 354 ms P-R-T Axes : 047 015 071 degrees QTc Int : 465 ms Sinus tachycardia Septal infarct (cited on or before 16-SEP-2018), age undetermined Abnormal ECG Confirmed by BIANKA LEGGETT, AMIE ([id number]), city editor [place]AL[place] JORDAN ([id number]) on 10/07/2018 11:01:11 AM Referred By: OUSMANE Confirmed By:AMIE CARLTON MD
[2018-10-06] MEDS: HYDROmorphone 1 MG/ML Syringe IV (01:34)
[2018-10-06 01:37] VITALS: BP 103/74; PULSE 85; RESP 15; O2SAT 94
--- NOTE | 2018-10-06 03:33 | ED.DEP ---
ED Disposition - Plan for ED Patient: Instructions: ED Chest Pain Atypical Unkn Cause Prescriptions: Oxycodone HCl/Acetaminophen [Percocet 5/325] 1 tab PO Q6H PRN PRN 3 Days #12 tab PRN Reason: Pain Referrals: Debra Fabian [Primary Care Provider] - Gerber Marshall MD [STAFF PHYSICIAN] -
[2018-10-06 03:50] VITALS: BP 102/58; PULSE 97; RESP 16; O2SAT 96
--- NOTE | 2018-10-06 04:07 | ED.DCSUM_ITS ---
- ER Visit Summary Date of Service: 10/06/18 Chief Complaint: Left neck shoulder and arm pain History of Present Illness: The patient is a 47 M who presents with pain in his left upper chest neck and shoulder. This began earlier today. He also reports some associated sweats. He felt nauseated. No vomiting. No shortness of breath. He did take sublingual nitroglycerin x3 with no relief. He also complains of some generalized malaise for the last couple of days. No extremity pain or swelling. He did have a recent KS with stents. On review of his last cardiology note there was an ulcerated LAD plaque which they did not try to stent due to concern for complication such as dissection and recommended medical management. Patient does also note a history of neck and shoulder problems and is uncertain if it is related to this versus cardiac. Physical Examination: Heart rate 110 vitals otherwise unremarkable Moist mucous membranes Heart regular rhythm tachycardia Lungs are clear Abdomen soft Extremities nontender without edema Alert Test Results: EKG shows sinus rhythm at a rate of 104. Two-view chest x-ray unremarkable. Labs notable for white blood cell count 12.5, glucose 267. Troponin negative. Repeat EKG unchanged. Second troponin at 3 hours is negative. Emergency Department Course and Treatment: Patient was given aspirin. He was given IV morphine. I spoke to audiology on-call, Dr. Varma. We do note that this is atypical given that he has had pain most of the day. His EKG does not show acute ischemic changes. Troponin was negative. He did not have relief of symptoms with nitroglycerin. He also notes a possible alternative explanation with a history of neck and shoulder problems. Given that his pain is atypical Dr. Varma recommended repeat EKG, delta troponin and if negative discharge with analgesics to follow-up as an outpatient. Patient given a prescription for short course of Percocet and discharged. Treatment Plan: [] Disposition: Discharge Impression: Chest pain This note was generated with [employer] dictation software. It may contain incorrect words, spelling, and punctuation that were not noted in review of the chart prior to signing ED Disposition - Plan for ED Patient: Disposition: Home or Assisted Living Instructions: ED Chest Pain Atypical Unkn Cause Prescriptions: Oxycodone HCl/Acetaminophen [Percocet 5/325] 1 tab PO Q6H PRN PRN 3 Days #12 tab PRN Reason: Pain Referrals: Debra Fabian [Primary Care Provider] - Gerber Marshall MD [STAFF PHYSICIAN] -
== END 2018-10-06 03:52 | disposition home or self-care (01) ==
LOC: ED 10-06 00:35
PROVIDERS: Emergency Provider Emergency Medicine; Family Provider Family Medicine; PCP Family Medicine
DX: R07.9 Chest pain, unspecified (principal); M54.2 Cervicalgia; M25.519 Pain in unspecified shoulder; R11.0 Nausea; I25.2 Old myocardial infarction; Z79.01 Long term (current) use of anticoagulants; Z79.84 Long term (current) use of oral hypoglycemic drugs; Z79.02 Long term (current) use of antithrombotics/antiplatelets; Z79.82 Long term (current) use of aspirin; Z79.891 Long term (current) use of opiate analgesic; Z79.899 Other long term (current) drug therapy; Z95.5 Presence of coronary angioplasty implant and graft
CPT/HCPCS: 71046; 80048; 84484; 85025; 93005; 96374; 96375; 99285; J7030; A4216; J2405

== ENCOUNTER 2018-10-14 23:32 | Observation (INO) | payer MEDICARE, MEDICAID, SELFPAY ==
[2018-09-14 13:29] VITALS: BMI 28.3
[2018-10-14 23:34] VITALS: BP 96/70; PULSE 91; RESP 18; TEMP 36.7; O2SAT 98; BMI 28.6
--- NOTE | 2018-10-14 23:34 | ED.RN ---
CALLED FOR EKG PER RN REQUEST, PULLED OLD EKGS FOR
--- NOTE | 2018-10-14 23:47 | EKG12_ITS ---
Test Reason : CP Blood Pressure : / mmHG Vent. Rate : 092 BPM Atrial Rate : 092 BPM P-R Int : 140 ms QRS Dur : 086 ms QT Int : 368 ms P-R-T Axes : 051 023 066 degrees QTc Int : 455 ms Normal sinus rhythm Normal ECG Confirmed by FESTUS DILLARD ([id number]), photo editor RUIZ RAYGOZA ([id number]) on 10/17/2018 4:44:54 PM Referred By: SANTINO Confirmed By:FESTUS DILLARD
--- NOTE | 2018-10-14 23:47 | RAD_ITS ---
STUDY: X-RAY CHEST REASON FOR EXAM: Male, 47 years old. Chest pain TECHNIQUE: 1 view COMPARISON: October 06, 2018 FINDINGS: The lungs are clear and expanded. There is no demonstrated pleural abnormality. Normal size heart. Normal mediastinum and oseas. Normal visualized pulmonary arteries. Normal visualized aortic arch and descending thoracic aorta. Normal visualized thoracic spine. Normal visualized ribs, clavicles, and shoulders. There is no demonstrated abnormality of the visualized soft tissue structures of the upper abdomen. RAD/Chest 1 View (Portable) IMPRESSION: Normal x-ray examination of the chest. No acute findings in the lungs Electronically Signed: Trung Phoenix MD at 0:34 EDT Tel , Service support ,
[2018-10-15] VITALS (11 sets, daily range): BP systolic 100–132; BP diastolic 60–76; PULSE 69–92; RESP 14–18; TEMP 36.2–36.7; O2SAT 95–98; BMI 27.8
[2018-10-15] MEDS: Aspirin 81 MG TAB.CHEW 324 MG PO (00:16)
[2018-10-15] MEDS: 0.9% Normal Saline 1,000 ML 150 ML IV (00:17)
[2018-10-15] MEDS: Ondansetron 4 MG/2 ML Vial IV (00:17)
[2018-10-15 00:20] LABS: Absolute Lymphocyte Count 3.85 X10^3/ul (0.83-4.51); Absolute Neutrophil Count 6.7 X10^3/uL (2.0-7.7); Basophil# 0.07 X10^3/uL; Basophil% 0.6 % (0-1); Eosinophil# 0.18 X10^3/uL; Eosinophils% 1.5 % (0-5); Hematocrit 42.6 % (40-54); Hemoglobin 14.6 g/dl (13.0-16.5); Lymphocyte # 3.85 X10^3/ul (4.0); Lymphocyte % 32.2 % (19-41); Mean Corp Hgb Conc 34.3 g/gl (32-36); Mean Corpuscular Hgb 30.1 pg (27.0-32.0); Mean Corpuscular Volume 87.8 fL (80-94); Mean Platelet Vol. 11.3 fl (6.2-12.0); Monocyte% 9.2 % (0-10); Neutrophil % 55.9 % (47-70); Platelet Count 178 K/mm3 (150-450); RBC Distribution Width SD 40.9 fl (35.1-43.9); Red Blood Count 4.85 M/mm3 (4.6-6.2)
[2018-10-15 00:21] LABS: POSITIVE COUNT NO; POSITIVE DIFFERENTIAL NO; POSITIVE MORPHOLOGY NO
[2018-10-15 00:27] LABS: Anion Gap 7 (5-15); BUN 13 mg/dL (7-18); BUN/Creat Ratio 12.6 RATIO (10-20); Calcium,Total 8.6 mg/dL (8.5-10.1); Chloride 104 mmol/L (98-107); Creatinine, Serum 1.03 mg/dL (0.70-1.30); EST Glomerular Filtration Rate 82 mL/min (>60); Est Glom Filt Rate - Afr Amer 100 mL/min (>60); Estimated Creatinine Clearance 92.53 ml/min; Glucose 306 mg/dL (74-106); Potassium 3.9 mmol/L (3.5-5.1); Sodium Level 137 mmol/L (136-145)
[2018-10-15] MEDS: Morphine 4 MG/ML Syringe IV ×2 (00:36→01:14)
--- NOTE | 2018-10-15 01:08 | PCM.HP.STD ---
Problem List (1) Chest pain Status: Acute Qualifiers: Chest pain type: unspecified Qualified Code(s): R07.9 - Chest pain, unspecified (2) Paroxysmal atrial fibrillation Status: Chronic (3) History of non-ST elevation myocardial infarction (NSTEMI) Status: Chronic (4) Stented coronary artery Status: Chronic Comment: Successful PTCA/VENANCIO mid DIAG#1 with a 2.25 x 24 Promus Synergy (Unable to wire mid LAD despite trying multiple wires. Lesion is clustered at a bifurcation with several septals and due to possibility of accessing false lumen and reaching iv contrast dye threshold, no further attempts were made to cannulate with a wire. MID LAD lesion looked identical to original cath; no perforation and pt is completely asymptomatic. Will proceed with medical management with asa/brilinta and xeralto for PAF and allow vesselt to heal. if pt has recurrent CP or anterior ischemia, will consider another PCI attempt to mid LAD with new IV dye load) (5) Anxiety and depression Status: Chronic (6) Tobacco use Status: Chronic (7) Benign essential HTN Status: Chronic (8) Chronic pain Status: Chronic Qualifiers: Chronic pain type: chronic pain syndrome Qualified Code(s): G89.4 - Chronic pain syndrome (9) DM2 (diabetes mellitus, type 2) Status: Chronic Qualifiers: Diabetes mellitus longterm insulin use: without middle or intermediate school principal use Diabetes mellitus complication status: with unspecified complications Qualified Code(s): E11.8 - Type 2 diabetes mellitus with unspecified complications (10) HLD (hyperlipidemia) Status: Chronic Qualifiers: Hyperlipidemia type: pure hypercholesterolemia Qualified Code(s): E78.00 - Pure hypercholesterolemia, unspecified; E78.0 - Pure hypercholesterolemia History of Present Illness Date of Admission: 10/15/18 Chief Complaint: Chest pain The patient is a 47 y/o M w/ PMHx: Hx Tobacco use, PAF on xarelto, HTN, HLD, Diabetes mellitus type II, Chronic pain syndrome w/ Chronic back pain following w/ pain management, Hx AMITA not using CPAP, recent 09/14/18 NSTEMI 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/VENANCIO mid diagonal with noted inability to the mid LAD with decision medical management with asa, brillinta with noted if recurrent chest pain consideration for another PCI of the mid LAD and noted mild ischemic cardiomyopathy w/ EF 45-50% with segmental wall motion abnormalities who re-presents to the [facility] ED on 10/15/18 with history of onset severe left sided chest dull discomfort, rated 4-5/10 with radiation to his left upper extremity, shoulder and neck with mild dyspnea, diaphoresis associated with no nausea or emesis with no improvement at home with nitroglycerin self sublingual administration starting ~ 1 hour [employer]NAGER in the ED. In the ED following medications he notes chest discomfort now rated 1/10. Work-up in the ED included T 98.1, heart rate 91, BP 96/70, respiratory rate 18, 98% on room air, CBC with WBC 12, hemoglobin 14.6, platelet 178 without shift, BMP remarkable only for glucose 306, initial troponin less than 0.015, x-ray with no acute cardia pulmonary findings, EKG with unchanged from recent with no acute evidence of ischemia. In the ED patient administered Zofran, morphine 4 mg IV x2, aspirin 325 mill grams p.o. x1 as well as normal saline. Past Medical History Past Medical History (Chronic Problems): Chronic Problems (Last Updated 09/22/18 @ 15:09 by Trina Garcia) Paroxysmal atrial fibrillation (Chronic) History of non-ST elevation myocardial infarction (NSTEMI) (Chronic 09/14/18) Stented coronary artery (Chronic 09/14/18) Successful PTCA/VENANCIO mid DIAG#1 with a 2.25 x 24 Promus Synergy (Unable to wire mid LAD despite trying multiple wires. Lesion is clustered at a bifurcation with several septals and due to possibility of accessing false lumen and reaching iv contrast dye threshold, no further attempts were made to cannulate with a wire. MID LAD lesion looked identical to original cath; no perforation and pt is completely asymptomatic. Will proceed with medical management with asa/brilinta and xeralto for PAF and allow vesselt to heal. if pt has recurrent CP or anterior ischemia, will consider another PCI attempt to mid LAD with new IV dye load) Anxiety and depression (Chronic) Tobacco use (Chronic) Benign essential HTN (Chronic) Chronic pain (Chronic) Depression (Chronic) DM2 (diabetes mellitus, type 2) (Chronic) HLD (hyperlipidemia) (Chronic) Medical History: Medical History (Last Updated 09/22/18 @ 15:09 by Trina Garcia) Paroxysmal atrial fibrillation (Acute) I48.0 History of non-ST elevation myocardial infarction (NSTEMI) (Chronic) Onset Date: 09/14/18 I25.2 Unstable angina (Resolved) I20.0 Tobacco use (Chronic) Z72.0 Benign essential HTN (Chronic) I10 Chronic pain (Chronic) G89.29 DM2 (diabetes mellitus, type 2) (Chronic) E11.9 HLD (hyperlipidemia) (Chronic) E78.5 Herniated disc back Allergies pregabalin [From Lyrica] Adverse Reaction (Verified 10/14/18 23:37) Itching Home Medications: Ambulatory Orders Medication Instructions Recorded Hydromorphone HCl [Dilaudid] 4 mg PO Q6H 02/17/16 Oxycodone HCl [Oxycontin] 20 mg PO BID 02/17/16 Sertraline HCl [Zoloft] 200 mg PO DAILY 02/17/16 Tiagabine HCl [Gabitril] 4 mg PO DAILY 02/17/16 Tizanidine HCl [Zanaflex] 8 mg PO QHS 02/17/16 lisinopril 10 mg tablet 10 mg PO QDAY 07/12/17 metformin 500 mg tablet 1,000 mg PO BID 07/12/17 Magnesium 250 mg PO DAILY 09/14/18 Multivitamin with Minerals 1 ea PO DAILY 09/14/18 [Multiple Vitamin] Omeprazole [Prilosec] 20 mg PO DAILY 09/14/18 Aspirin E.C. [Ecotrin] 81 mg PO DAILY@0800 tab 09/16/18 Nitroglycerin [Nitrostat] 0.4 mg SUBLINGUAL Q5M PRN #1 bottle 09/16/18 aripiprazole 2 mg tablet 2 mg PO DAILY tab 09/22/18 cinnamon bark 500 mg capsule 1,000 mg PO DAILY cap 09/22/18 duloxetine 60 mg capsule,delayed 120 mg PO DAILY cap 09/22/18 release Co Q10 200 [Co Q-10] 100 mg PO DAILY 10/06/18 Krill/Om-3/Dha/Epa/Phospho/Ast 1 each PO DAILY 10/06/18 [Megared Cardwell-3 Krill Oil Sfgl] atorvastatin 80 mg tablet 80 mg PO QHS #30 tab 10/12/18 carvedilol 3.125 mg tablet 3.125 mg PO BID #60 tab 10/12/18 rivaroxaban 15 mg tablet 15 mg PO DAILY #30 tab 10/12/18 ticagrelor 90 mg tablet 90 mg PO BID #60 tab 10/12/18 Surgical History: Surgical History (Last Reviewed 09/22/18 @ 14:57 by Trina Garcia) Stented coronary artery (Chronic) Onset Date: 09/14/18 Z95.5 Successful PTCA/VENANCIO mid DIAG#1 with a 2.25 x 24 Promus Synergy (Unable to wire mid LAD despite trying multiple wires. Lesion is clustered at a bifurcation with several septals and due to possibility of accessing false lumen and reaching iv contrast dye threshold, no further attempts were made to cannulate with a wire. MID LAD lesion looked identical to original cath; no perforation and pt is completely asymptomatic. Will proceed with medical management with asa/brilinta and xeralto for PAF and allow vesselt to heal. if pt has recurrent CP or anterior ischemia, will consider another PCI attempt to mid LAD with new IV dye load) H/O arthroscopic knee surgery Z98.890 x3 left knee s/p back Surgical History: - - Lumbar back surgery, bilateral knee arthroscopic surgery with 3 left and one right surgery performed. Psychiatric History: Anxiety, Depression Lives: Spouse/ Significant Other Smoking Status: Former smoker - Quit following recent 09/13/18 NSTEMI. Prior 1-1.5 pack cigarette tobacco usage daily. Tobacco Use: Non-smoker Alcohol: Occasional Drugs: None - *Family History Maternal Family History: Family History (Last Reviewed 09/22/18 @ 14:57 by Trina Garcia) Father Esophageal cancer Mother Arthritis History Items: - - Patient notes a maternal family history of HD. Paternal Family History: Family History (Last Reviewed 09/22/18 @ 14:57 by Trina Garcia) Father Esophageal cancer Mother Arthritis History Items: - - Father with a history of esophageal cancer. Review of Systems Constitutional: Reports: Fatigue. Denies: Chills, Fever, Weight Change HEENT: Denies: Head Aches, Sinus Congestion, Sinus Drainage Cardiovascular: Reports: Chest Pain. Denies: Chest Pressure, Chest Tightness, Heaviness, Light Headedness, Orthopnea, Palpitations, Syncope Respiratory: Reports: Shortness of Breath. Denies: Cough, Shortness of breath at rest, Sputum production Gastrointestinal: Denies: Abdominal Pain, Nausea, Vomiting Genitourinary: Denies: Dysuria Musculoskeletal: Reports: Back Pain, Neck Pain, Shoulder Pain. Denies: Joint Pain, Joint Tenderness Skin: Denies: Rash, Wounds Neurological: Denies: Numbness, Tingling, Focal weakness Psychiatric: Reports: Anxiety, Depression. Denies: Homicidal Ideations, Suicidal Ideations Hematologic/ Lymphatic: Reports: Easy Bruising, Easy Bleeding VTE Information - Inpt Only VTE Present on Admission: No VTE Mechan Device Prophylaxis: SCD's VTE Pharm Prophylaxis ordered?: No Reason prophylaxis not ordered:: Treatment Not Indicated - On xarelto, holding. Patient Problems: Active and Suspected Problems (Last Updated 09/22/18 @ 15:09 by Trina Garcia) Chest pain (Acute) Subjective: Seated upright in the ED bed, fatigued appearance, notes chest discomfort has improved. Objective: Physical Examination: General: awake, alert, oriented x 3 and cooperative, seated upright in the ED bed in no apparent distress, notes chest discomfort has improved since initial ED presentation. Skin: normal color, turgor, no icterus, cyanosis, several tattoos. HEENT: AT/NC, EOMI, PERRLA, MMM, no carotid bruits or JVD noted. Lungs: CTA bilaterally, moderate effort, mild decrease BL bases, no rales, ronchi or wheezing. Heart: Regular rate and rhythm; no gallop, rub audible. Abdomen: soft, NTTP, ND, normal BS, no HSM. Extremities: no cyanosis, clubbing, or edema. Neurological: patient awake, alert, oriented x 3; cognitive function intact; pupils equally reactive to light and accomodation; cranial nerves II-XII grossly normal, moving all 4 extremities, no focal deficits, strength moderately globally decreased secondary to acute presentation and chronic back pain. Psychiatric: affect appears fatigued, no acute evidence of depressive or anxiety feelings. - Physical Exam Vital Signs Temp Pulse Resp BP Pulse Ox 98.1 F 76 15 100/70 97 10/14/18 23:34 10/15/18 00:20 10/15/18 00:20 10/15/18 00:20 10/15/18 00:20 Oxygen Flow Rate (L/min) 2 Oxygen Delivery Method Nasal Cannula Weight: 199 lb 11.821 oz Body Mass Index (BMI) 28.6 Laboratory Tests Past 24 Hrs 10/14/18 10/14/18 23:40 23:40 WBC 12.0 H RBC 4.85 Hgb 14.6 Hct 42.6 MCV 87.8 MCH 30.1 MCHC 34.3 RDW 13.0 RDW Differential 40.9 Plt Count 178 MPV 11.3 Immature Gran % (Auto) 0.600 Neut % (Auto) 55.9 Lymph % (Auto) 32.2 [place] % (Auto) 9.2 Eos % (Auto) 1.5 Baso % (Auto) 0.6 Absolute Neuts (auto) 6.7 Absolute Lymphs (auto) 3.85 Total Counted Not Reportable Sodium 137 Potassium 3.9 Chloride 104 Carbon Dioxide 26.0 Anion Gap 7 BUN 13 Creatinine 1.03 Estim Creat Clear Calc 92.53 Est GFR (MDRD) Af Amer 100 Est GFR (MDRD) Non-Af 82 BUN/Creatinine Ratio 12.6 Glucose 306 H Calcium 8.6 Troponin I < 0.015 Assessment/Plan All Active Problems (Last Updated 09/22/18 @ 15:09 by Trina Garcia) Chest pain (Acute) Unstable angina (Resolved) NSTEMI (non-ST elevated myocardial infarction) (Resolved 09/14/18) The patient is a 47 y/o M w/ PMHx: Hx Tobacco use, PAF on xarelto, HTN, HLD, Diabetes mellitus type II, Chronic pain syndrome w/ Chronic back pain following w/ pain management, Hx AMITA not using CPAP, recent 09/14/18 NSTEMI 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/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 mid diagonal with noted inability to the mid LAD with decision medical management with asa, brillinta with noted if recurrent chest pain consideration for another PCI of the mid LAD and noted mild ischemic cardiomyopathy w/ EF 45-50% with segmental wall motion abnormalities who re-presents to the [facility] ED on 10/15/18 with history of onset severe left sided chest dull discomfort, rated 4-5/10 with radiation to his left upper extremity, shoulder and neck with mild dyspnea, diaphoresis associated with no nausea or emesis with no improvement at home with nitroglycerin self sublingual administration starting ~ 1 hour [employer] MANAGER in the ED. (1) Chest Pain, Recent NSTEMI w/ Inability to Wire LAD Segment: Will admit to PCU, maintain on a monitored bed, continue serial cardiac enzymes and EKGs. Obtain magnesium level upon admission. Continue medical management w/ asa, BB, ACEI w/ hold parameters given low normal BP, statin. Cardiology consulted, from prior notes likely plan for cardiac catheterization w/ repeat attempt at intervention. Maintain NPO although given 10/14/18 xarelto may be delayed. ASA, NG, continued on chronic pain regimen, PRN breakthrough pain regimen. Holding xarelto regimen, Dr. Marshall noted intention for catheterization, but given recent anticoagulation unclear timeline. (2) CAD: s/p recent NSTEMI, maintain on asa, brillinta, coreg, ACEI with hold parameters given low normal BP, statin therapy. (3) Mild Ischemic Cardiomyopathy: Recent 09/13/18 admission w/ NSTEMI, s/p PCI as noted, ECHO w/ EF 45-50% w/ wall motion abnormalities, maintained on asa, brillinta, coreg, ACEI with hold parameters given low normal BP upon presentation, statin therapies. (4) Diabetes mellitus type II: Hold oral home regimen, recent 09/13/18 HgbA1c 9%, likely would benefit from consideration additional agents, NPO, accu checks w/ ISS. (5) PAF: Continue home Coreg, holding Xarelto regimen. (6) Hypertension: Continue home regimen including Coreg, lisinopril with hold parameters given low normal BP upon presentation, PRN hydralazine. (7) Hyperlipidemia: Continue home statin regimen. (8) Anxiety and depression: Continue home sertraline as well as Abilify regimen. Note that patient is additionally on duloxetine as well as Zoloft, recommend that this be reassessed outpatient for risk of serotonin syndrome. (9) Chronic pain syndrome: We will continue home regimen scheduled Dilaudid, OxyContin and Zanaflex with breakthrough regimen given acute presentation with chest pain. (10) History of Tobacco use: Quit w/ recent 09/13/18 admission, prior 1-1.5 ppd, will again have RT encouragement and education for continued cessation. (11) GERD: PPI. (12) DVT Prophylaxis: SCDs, recent xarelto, held. Code Visit Inpatient E&M: 42720 Init Hosp L3
--- NOTE | 2018-10-15 01:18 | HP.PCM_ITS ---
Problem List (1) Chest pain Status: Acute Qualifiers: Chest pain type: unspecified Qualified Code(s): R07.9 - Chest pain, unspecified (2) Paroxysmal atrial fibrillation Status: Chronic (3) History of non-ST elevation myocardial infarction (NSTEMI) Status: Chronic (4) Stented coronary artery Status: Chronic Comment: Successful PTCA/VENANCIO mid DIAG#1 with a 2.25 x 24 Promus Synergy (Unable to wire mid LAD despite trying multiple wires. Lesion is clustered at a bifurcation with several septals and due to possibility of accessing false lumen and reaching iv contrast dye threshold, no further attempts were made to cannulate with a wire. MID LAD lesion looked identical to original cath; no perforation and pt is completely asymptomatic. Will proceed with medical management with asa/brilinta and xeralto for PAF and allow vesselt to heal. if pt has recurrent CP or anterior ischemia, will consider another PCI attempt to mid LAD with new IV dye load) (5) Anxiety and depression Status: Chronic (6) Tobacco use Status: Chronic (7) Benign essential HTN Status: Chronic (8) Chronic pain Status: Chronic Qualifiers: Chronic pain type: chronic pain syndrome Qualified Code(s): G89.4 - Chronic pain syndrome (9) DM2 (diabetes mellitus, type 2) Status: Chronic Qualifiers: Diabetes mellitus penitentiary insulin use: without long distance operator use Diabetes mellitus complication status: with unspecified complications Qualified Code(s): E11.8 - Type 2 diabetes mellitus with unspecified complications (10) HLD (hyperlipidemia) Status: Chronic Qualifiers: Hyperlipidemia type: pure hypercholesterolemia Qualified Code(s): E78.00 - Pure hypercholesterolemia, unspecified; E78.0 - Pure hypercholesterolemia History of Present Illness Date of Admission: 10/15/18 Chief Complaint: Chest pain The patient is a 47 y/o M w/ PMHx: Hx Tobacco use, PAF on xarelto, HTN, HLD, Diabetes mellitus type II, Chronic pain syndrome w/ Chronic back pain following w/ pain management, Hx AMITA not using CPAP, recent 09/14/18 NSTEMI s/p SCHO[employer] THERAPIST/VENANCIO mid diagonal with noted inability to the mid LAD with decision medical management with asa, brillinta with noted if recurrent chest pain consideration for another PCI of the mid LAD and noted mild ischemic cardiomyopathy w/ EF 45- 50% with segmental wall motion abnormalities who re-presents to the [facility] ED on 10/15/18 with history of onset severe left sided chest dull discomfort, rated 4- 5/10 with radiation to his left upper extremity, shoulder and neck with mild dyspnea, diaphoresis associated with no nausea or emesis with no improvement at home with nitroglycerin self sublingual administration starting ~ 1 hour 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 In the ED following medications he notes chest discomfort now rated 1/10. Work-up in the ED included T 98.1, heart rate 91, BP 96/70, respiratory rate 18, 98% on room air, CBC with WBC 12, hemoglobin 14.6, platelet 178 without shift, BMP remarkable only for glucose 306, initial troponin less than 0.015, x-ray with no acute cardia pulmonary findings, EKG with unchanged from recent with no acute evidence of ischemia. In the ED patient administered Zofran, morphine 4 mg IV x2, aspirin 325 mill grams p.o. x1 as well as normal saline. Past Medical History Past Medical History (Chronic Problems): Chronic Problems (Last Updated 09/22/18 @ 15:09 by Trina Garcia) Paroxysmal atrial fibrillation (Chronic) History of non-ST elevation myocardial infarction (NSTEMI) (Chronic 09/14/18) Stented coronary artery (Chronic 09/14/18) Successful PTCA/VENANCIO mid DIAG#1 with a 2.25 x 24 Promus Synergy (Unable to wire mid LAD despite trying multiple wires. Lesion is clustered at a bifurcation with several septals and due to possibility of accessing false lumen and reaching iv contrast dye threshold, no further attempts were made to cannulate with a wire. MID LAD lesion looked identical to original cath; no perforation and pt is completely asymptomatic. Will proceed with medical management with asa/brilinta and xeralto for PAF and allow vesselt to heal. if pt has recurrent CP or anterior ischemia, will consider another PCI attempt to mid LAD with new IV dye load) Anxiety and depression (Chronic) Tobacco use (Chronic) Benign essential HTN (Chronic) Chronic pain (Chronic) Depression (Chronic) DM2 (diabetes mellitus, type 2) (Chronic) HLD (hyperlipidemia) (Chronic) Medical History: Medical History (Last Updated 09/22/18 @ 15:09 by Trina Garcia) Paroxysmal atrial fibrillation (Acute) I48.0 History of non-ST elevation myocardial infarction (NSTEMI) (Chronic) Onset Date: 09/14/18 I25.2 Unstable angina (Resolved) I20.0 Tobacco use (Chronic) Z72.0 Benign essential HTN (Chronic) I10 Chronic pain (Chronic) G89.29 DM2 (diabetes mellitus, type 2) (Chronic) E11.9 HLD (hyperlipidemia) (Chronic) E78.5 Herniated disc back Allergies pregabalin [From Lyrica] Adverse Reaction (Verified 10/14/18 23:37) Itching Home Medications: Ambulatory Orders Medication Instructions Recorded Hydromorphone HCl [Dilaudid] 4 mg PO Q6H 02/17/16 Oxycodone HCl [Oxycontin] 20 mg PO BID 02/17/16 Sertraline HCl [Zoloft] 200 mg PO DAILY 02/17/16 Tiagabine HCl [Gabitril] 4 mg PO DAILY 02/17/16 Tizanidine HCl [Zanaflex] 8 mg PO QHS 02/17/16 lisinopril 10 mg tablet 10 mg PO QDAY 07/12/17 metformin 500 mg tablet 1,000 mg PO BID 07/12/17 Magnesium 250 mg PO DAILY 09/14/18 Multivitamin with Minerals 1 ea PO DAILY 09/14/18 [Multiple Vitamin] Omeprazole [Prilosec] 20 mg PO DAILY 09/14/18 Aspirin E.C. [Ecotrin] 81 mg PO DAILY@0800 tab 09/16/18 Nitroglycerin [Nitrostat] 0.4 mg SUBLINGUAL Q5M PRN #1 bottle 09/16/18 aripiprazole 2 mg tablet 2 mg PO DAILY tab 09/22/18 cinnamon bark 500 mg capsule 1,000 mg PO DAILY cap 09/22/18 duloxetine 60 mg capsule,delayed 120 mg PO DAILY cap 09/22/18 release Co Q10 200 [Co Q-10] 100 mg PO DAILY 10/06/18 Krill/Om-3/Dha/Epa/Phospho/Ast 1 each PO DAILY 10/06/18 [Megared [place]-3 Krill Oil Sfgl] atorvastatin 80 mg tablet 80 mg PO QHS #30 tab 10/12/18 carvedilol 3.125 mg tablet 3.125 mg PO BID #60 tab 10/12/18 rivaroxaban 15 mg tablet 15 mg PO DAILY #30 tab 10/12/18 ticagrelor 90 mg tablet 90 mg PO BID #60 tab 10/12/18 Surgical History: Surgical History (Last Reviewed 09/22/18 @ 14:57 by Trina Garcia) Stented coronary artery (Chronic) Onset Date: 09/14/18 Z95.5 Successful PTCA/VENANCIO mid DIAG#1 with a 2.25 x 24 Promus Synergy (Unable to wire mid LAD despite trying multiple wires. Lesion is clustered at a bifurcation with several septals and due to possibility of accessing false lumen and reaching iv contrast dye threshold, no further attempts were made to cannulate with a wire. MID LAD lesion looked identical to original cath; no perforation and pt is completely asymptomatic. Will proceed with medical management with asa/brilinta and xeralto for PAF and allow vesselt to heal. if pt has recurrent CP or anterior ischemia, will consider another PCI attempt to mid LAD with new IV dye load) H/O arthroscopic knee surgery Z98.890 x3 left knee s/p back Surgical History: - - Lumbar back surgery, bilateral knee arthroscopic surgery with 3 left and one right surgery performed. Psychiatric History: Anxiety, Depression Lives: Spouse/ Significant Other Smoking Status: Former smoker - Quit following recent 09/13/18 NSTEMI. Prior 1- 1.5 pack cigarette tobacco usage daily. Tobacco Use: Non-smoker Alcohol: Occasional Drugs: None - *Family History Maternal Family History: Family History (Last Reviewed 09/22/18 @ 14:57 by Trina Garcia) Father Esophageal cancer Mother Arthritis History Items: - - Patient notes a maternal family history of HD. Paternal Family History: Family History (Last Reviewed 09/22/18 @ 14:57 by Trina Garcia) Father Esophageal cancer Mother Arthritis History Items: - - Father with a history of esophageal cancer. Review of Systems Constitutional: Reports: Fatigue. Denies: Chills, Fever, Weight Change HEENT: Denies: Head Aches, Sinus Congestion, Sinus Drainage Cardiovascular: Reports: Chest Pain. Denies: Chest Pressure, Chest Tightness, Heaviness, Light Headedness, Orthopnea, Palpitations, Syncope Respiratory: Reports: Shortness of Breath. Denies: Cough, Shortness of breath at rest, Sputum production Gastrointestinal: Denies: Abdominal Pain, Nausea, Vomiting Genitourinary: Denies: Dysuria Musculoskeletal: Reports: Back Pain, Neck Pain, Shoulder Pain. Denies: Joint Pain, Joint Tenderness Skin: Denies: Rash, Wounds Neurological: Denies: Numbness, Tingling, Focal weakness Psychiatric: Reports: Anxiety, Depression. Denies: Homicidal Ideations, Suicidal Ideations Hematologic/ Lymphatic: Reports: Easy Bruising, Easy Bleeding VTE Information - Inpt Only VTE Present on Admission: No VTE Mechan Device Prophylaxis: SCD's VTE Pharm Prophylaxis ordered?: No Reason prophylaxis not ordered:: Treatment Not Indicated - On xarelto, holding. Patient Problems: Active and Suspected Problems (Last Updated 09/22/18 @ 15:09 by Trina Garcia) Chest pain (Acute) Subjective: Seated upright in the ED bed, fatigued appearance, notes chest discomfort has improved. Objective: Physical Examination: General: awake, alert, oriented x 3 and cooperative, seated upright in the ED bed in no apparent distress, notes chest discomfort has improved since initial ED presentation. Skin: normal color, turgor, no icterus, cyanosis, several tattoos. HEENT: AT/NC, EOMI, PERRLA, MMM, no carotid bruits or JVD noted. Lungs: CTA bilaterally, moderate effort, mild decrease BL bases, no rales, ronchi or wheezing. Heart: Regular rate and rhythm; no gallop, rub audible. Abdomen: soft, NTTP, ND, normal BS, no HSM. Extremities: no cyanosis, clubbing, or edema. Neurological: patient awake, alert, oriented x 3; cognitive function intact; pupils equally reactive to light and accomodation; cranial nerves II-XII grossly normal, moving all 4 extremities, no focal deficits, strength moderately globally decreased secondary to acute presentation and chronic back pain. Psychiatric: affect appears fatigued, no acute evidence of depressive or anxiety feelings. - Physical Exam Vital Signs Temp Pulse Resp BP Pulse Ox 98.1 F 76 15 100/70 97 10/14/18 23:34 10/15/18 00:20 10/15/18 00:20 10/15/18 00:20 10/15/18 00:20 Oxygen Flow Rate (L/min) 2 Oxygen Delivery Method Nasal Cannula Weight: 199 lb 11.821 oz Body Mass Index (BMI) 28.6 Laboratory Tests Past 24 Hrs 10/14/18 10/14/18 23:40 23:40 WBC 12.0 H RBC 4.85 Hgb 14.6 Hct 42.6 MCV 87.8 MCH 30.1 MCHC 34.3 RDW 13.0 RDW Differential 40.9 Plt Count 178 MPV 11.3 Immature Gran % (Auto) 0.600 Neut % (Auto) 55.9 Lymph % (Auto) 32.2 [place] % (Auto) 9.2 Eos % (Auto) 1.5 Baso % (Auto) 0.6 Absolute Neuts (auto) 6.7 Absolute Lymphs (auto) 3.85 Total Counted Not Reportable Sodium 137 Potassium 3.9 Chloride 104 Carbon Dioxide 26.0 Anion Gap 7 BUN 13 Creatinine 1.03 Estim Creat Clear Calc 92.53 Est GFR (MDRD) Af Amer 100 Est GFR (MDRD) Non-Af 82 BUN/Creatinine Ratio 12.6 Glucose 306 H Calcium 8.6 Troponin I < 0.015 Assessment/Plan All Active Problems (Last Updated 09/22/18 @ 15:09 by Trina Garcia) Chest pain (Acute) Unstable angina (Resolved) NSTEMI (non-ST elevated myocardial infarction) (Resolved 09/14/18) The patient is a 47 y/o M w/ PMHx: Hx Tobacco use, PAF on xarelto, HTN, HLD, Diabetes mellitus type II, Chronic pain syndrome w/ Chronic back pain following w/ pain management, Hx AMITA not using CPAP, recent 09/14/18 NSTEMI s/p SCHO[employer] THERAPIST/VENANCIO mid diagonal with noted inability to the mid LAD with decision medical management with asa, brillinta with noted if recurrent chest pain consideration for another PCI of the mid LAD and noted mild ischemic cardiomyopathy w/ EF 45- 50% with segmental wall motion abnormalities who re-presents to the [facility] ED on 10/15/18 with history of onset severe left sided chest dull discomfort, rated 4- 5/10 with radiation to his left upper extremity, shoulder and neck with mild dyspnea, diaphoresis associated with no nausea or emesis with no improvement at home with nitroglycerin self sublingual administration starting ~ 1 hour 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 (1) Chest Pain, Recent NSTEMI w/ Inability to Wire LAD Segment: Will admit to PCU, maintain on a monitored bed, continue serial cardiac enzymes and EKGs. Obtain magnesium level upon admission. Continue medical management w/ asa, BB, ACEI w/ hold parameters given low normal BP, statin. Cardiology consulted, from prior notes likely plan for cardiac catheterization w/ repeat attempt at intervention. Maintain NPO although given 10/14/18 xarelto may be delayed. ASA, NG, continued on chronic pain regimen, PRN breakthrough pain regimen. Holding xarelto regimen, Dr. Marshall noted intention for catheterization, but given recent anticoagulation unclear timeline. (2) CAD: s/p recent NSTEMI, maintain on asa, brillinta, coreg, ACEI with hold parameters given low normal BP, statin therapy. (3) Mild Ischemic Cardiomyopathy: Recent 09/13/18 admission w/ NSTEMI, s/p PCI as noted, ECHO w/ EF 45-50% w/ wall motion abnormalities, maintained on asa, brillinta, coreg, ACEI with hold parameters given low normal BP upon p resentation, statin therapies. (4) Diabetes mellitus type II: Hold oral home regimen, recent 09/13/18 HgbA1c 9%, likely would benefit from consideration additional agents, NPO, accu checks w/ ISS. (5) PAF: Continue home Coreg, holding Xarelto regimen. (6) Hypertension: Continue home regimen including Coreg, lisinopril with hold parameters given low normal BP upon presentation, PRN hydralazine. (7) Hyperlipidemia: Continue home statin regimen. (8) Anxiety and depression: Continue home sertraline as well as Abilify regimen. Note that patient is additionally on duloxetine as well as Zoloft, recommend that this be reassessed outpatient for risk of serotonin syndrome. (9) Chronic pain syndrome: We will continue home regimen scheduled Dilaudid, OxyContin and Zanaflex with breakthrough regimen given acute presentation with chest pain. (10) History of Tobacco use: Quit w/ recent 09/13/18 admission, prior 1-1.5 ppd, will again have RT encouragement and education for continued cessation. (11) GERD: PPI. (12) DVT Prophylaxis: SCDs, recent xarelto, held. Code Visit Inpatient E&M: 31408 Init Hosp L3
--- NOTE | 2018-10-15 01:22 | ED.VISSUMM ---
- ER Visit Summary Date of Service: 10/15/18 Chief Complaint: Chest pain History of Present Illness: The patient is a 47 M who presents emergency department with chest pain. Patient was admitted last month for NSTEMI. He underwent heart catheterization and stent placement. There is a mid LAD lesion that was unable to be fixed at that time. He was discharged home on Brilinta baby aspirin and Xarelto for history of A. fib. Patient states he has been fine for the past month. He has not had any difficulty with ambulation or exertion. Tonight he laid down in bed and developed the same discomfort in his jaw face left arm and chest. He did a nitro series which did not relieve his pain and decided to come to the emergency department. Labs were drawn approximately 1 hour after the onset of symptoms. Narcotics. Physical Examination: Afebrile vital signs stable Gen: Well-nourished well-developed Head: Normocephalic atraumatic Eyes: Perrl EOMI ENT: TMs clear no rhinorrhea moist mucous membranes Neck: Supple no lymphadenopathy no JVD nontender CVS: Regular rate rhythm no murmurs normal S1-S2 Respiratory: No distress clear to auscultation bilaterally chest nontender Abdomen: Soft nontender nondistended normal bowel sounds no masses Back: Nontender Extremity: Nontender no edema Skin: Normal color no rash Neuro: alert orientated ?3 CN II-XII intact normal strength sensation reflexes gait cerebellar Psych: Normal affect normal mood Test Results: EKG shows a normal sinus rhythm. This is unchanged from his last EKG. Troponin is negative. Blood glucose 303. Emergency Department Course and Treatment: Patient received morphine for pain. He has been resting more comfortably in the bed. His 1 hour troponin is negative. I spoke with Dr. Marshall who agrees with admission. Dr. London was contacted for the hospitalist service. Impression: 1. Acute chest pain This note was generated with [employer] dictation software. It may contain incorrect words, spelling, and punctuation that were not noted in review of the chart prior to signing ED Disposition - Plan for ED Patient: Referrals: Debra Fabian [Primary Care Provider] -
--- NOTE | 2018-10-15 01:56 | EKG12_ITS ---
Test Reason : CP Blood Pressure : / mmHG Vent. Rate : 076 BPM Atrial Rate : 076 BPM P-R Int : 140 ms QRS Dur : 086 ms QT Int : 402 ms P-R-T Axes : 046 028 067 degrees QTc Int : 452 ms Normal sinus rhythm with sinus arrhythmia Normal ECG When compared with ECG of 06-OCT-2018 01:23, No significant change was found Confirmed by BIANKA LEGGETT, AMIE ([id number]), assignment desk editor RUIZ RAYGOZA ([id number]) on 10/19/2018 1:45:42 PM Referred By: KRISTEN Confirmed By:AMIE CARLTON MD
[2018-10-15 02:11] LABS: Magnesium 1.7 mg/dL (1.6-2.6)
[2018-10-15] MEDS: HYDROmorphone 2 MG TABLET 4 MG PO ×2 (02:42→11:17)
[2018-10-15] MEDS: LORazepam 0.5 MG Tablet PO ×2 (02:44→11:16)
--- NOTE | 2018-10-15 05:55 | EKG12_ITS ---
Test Reason : AM EKG Blood Pressure : / mmHG Vent. Rate : 077 BPM Atrial Rate : 077 BPM P-R Int : 148 ms QRS Dur : 092 ms QT Int : 396 ms P-R-T Axes : 061 031 055 degrees QTc Int : 448 ms Normal sinus rhythm Normal ECG When compared with ECG of 15-OCT-2018 02:05, MANUAL COMPARISON REQUIRED, DATA IS UNCONFIRMED Confirmed by BIANKA LEGGETT, AMIE ([id number]), technical editor RUIZ RAYGOZA ([id number]) on 10/19/2018 1:45:17 PM Referred By: KRISTEN Confirmed By:AMIE CARLTON MD
[2018-10-15 06:20] LABS: Absolute Lymphocyte Count 3.11 X10^3/ul (0.83-4.51); Absolute Neutrophil Count 5.5 X10^3/uL (2.0-7.7); Basophil# 0.05 X10^3/uL; Basophil% 0.5 % (0-1); Eosinophil# 0.17 X10^3/uL; Eosinophils% 1.7 % (0-5); Hematocrit 40.7 % (40-54); Hemoglobin 13.7 g/dl (13.0-16.5); Lymphocyte # 3.11 X10^3/ul (4.0); Lymphocyte % 31.7 % (19-41); Mean Corp Hgb Conc 33.7 g/gl (32-36); Mean Corpuscular Hgb 29.5 pg (27.0-32.0); Mean Corpuscular Volume 87.7 fL (80-94); Mean Platelet Vol. 10.8 fl (6.2-12.0); Monocyte# 0.96 X10^3/uL; Monocyte% 9.8 % (0-10); Neutrophil # 5.48 X10^3/uL (2.7-7.7); Neutrophil % 55.9 % (47-70); POSITIVE COUNT NO; POSITIVE DIFFERENTIAL NO; POSITIVE MORPHOLOGY NO; Platelet Count 142 K/mm3 (150-450); RBC Distribution Width SD 40.1 fl (35.1-43.9); Red Blood Count 4.64 M/mm3 (4.6-6.2); White Blood Count 9.8 K/mm3 (4.4-11.0)
[2018-10-15 06:35] LABS: Anion Gap 7 (5-15); BUN 12 mg/dL (7-18); BUN/Creat Ratio 15.3 RATIO (10-20); Calcium,Total 8.2 mg/dL (8.5-10.1); Chloride 109 mmol/L (98-107); Creatinine, Serum 0.78 mg/dL (0.70-1.30); EST Glomerular Filtration Rate 113 mL/min (>60); Est Glom Filt Rate - Afr Amer 137 mL/min (>60); Estimated Creatinine Clearance 122.19 ml/min; Glucose 179 mg/dL (74-106); Potassium 3.7 mmol/L (3.5-5.1); Sodium Level 141 mmol/L (136-145)
[2018-10-15] MEDS: 0.9% Normal Saline 1,000 ML 100 ML IV (07:08)
[2018-10-15] MEDS: HYDROmorphone 1 MG/ML Syringe IV (07:14)
[2018-10-15] MEDS: 0.9% NaCl Peripheral Flush Adult/Peds IV (07:14)
[2018-10-15 07:26] LABS: Bedside Glucose 160 mg/dL (70-110)
--- NOTE | 2018-10-15 07:54 | STEWCON_ITS ---
Version 2 Reason For Study: CHEST PAIN Stress Results Protocol: Stress Echocardiogram Maximum Predicted HR: 174 bpm Target HR: 148 bpm % Maximum Predicted HR: 89 % DurationHeart Rate Stage (mm:ss) (bpm) BP Comment BASELINE 60 110/76DEFINITY 0.6 ML USED DURING STRESS GUERRERO PROTOCOL- STAGE 1 3:00 110 118/74 GUERRERO PROTOCOL- STAGE 2 3:00 125 120/70 GUERRERO PROTOCOL- STAGE 3 1:33 155 130/80KNEE PAIN, SL CP L BREAST AREA 2/10 RECOVERY 95 128/70CP RESOLVED Stress Duration: 7:33 mm:ss Maximum Stress HR: 155 bpm Baseline Echocardiogram Findings The estimated ejection fraction is 55 %. Stress Echo Wall motion Data Resting WM Intermediate WM Stress WM Resting Wall Motion Wall Motion Stress No regional wall motion No regional wall motion abnormalities noted. abnormalities noted. EKG Data Normal intervals are noted. The patient exercised according to the regular Guerrero protocol for a total duration of 7:33. The maximum heart rate attained was 155 beats per minute. This was 89% of maximum predicted heart rate. The patient exercised into stage 3 of the Guerrero protocol. During stress, there were no ST or T wave changes noted to suggest ischemia. No clinical angina was noted. No arrhythmias noted. Interpretation Summary The estimated ejection fraction is 55 %. Normal, adequate, treadmill echocardiogram. Negative for ischemia by EKG and echocardiographic criteria. Slight 2/10 CP reported at peak exercise, which resolved less than 1 minute into recovery. No arrhythmias noted. Appropriate blood pressure response to exercise. Average exercise capacity for age. Decreased sensitivity due to poor echo windows requiring Definity agent. Patient had subtle mid anterior hypokinesis at peak exercise however this was seen in only one view. Test terminated due to the attainment of target heart rate and leg discomfort. Final LVEF of 65%. No complications. The study was technically difficult. Contrast injection was performed. Ordering Physician: Gerber Marshall Referring Physician: Debra Fabian Performed By: Yudelka Betancur RDCS, RVT
[2018-10-15] MEDS: Lisinopril 10 MG Tablet PO (08:16)
[2018-10-15] MEDS: Insulin Lispro 100 UNIT/ML INSULN.PEN SC (08:16)
[2018-10-15] MEDS: CLARIFY ORDER NOTE (08:18)
--- NOTE | 2018-10-15 09:31 | CON.PCM_ITS ---
Problem List (1) Chest pain Status: Acute Qualifiers: Chest pain type: unspecified Qualified Code(s): R07.9 - Chest pain, unspecified (2) Paroxysmal atrial fibrillation Status: Chronic (3) History of non-ST elevation myocardial infarction (NSTEMI) Status: Chronic (4) Stented coronary artery Status: Chronic Comment: Successful PTCA/VENANCIO mid DIAG#1 with a 2.25 x 24 Promus Synergy (Unable to wire mid LAD despite trying multiple wires. Lesion is clustered at a bifurcation with several septals and due to possibility of accessing false lumen and reaching iv contrast dye threshold, no further attempts were made to cannulate with a wire. MID LAD lesion looked identical to original cath; no perforation and pt is completely asymptomatic. Will proceed with medical management with asa/brilinta and xeralto for PAF and allow vesselt to heal. if pt has recurrent CP or anterior ischemia, will consider another PCI attempt to mid LAD with new IV dye load) (5) Unstable angina Status: Resolved (6) Anxiety and depression Status: Chronic (7) Tobacco use Status: Chronic (8) Benign essential HTN Status: Chronic (9) HLD (hyperlipidemia) Status: Chronic Qualifiers: Hyperlipidemia type: pure hypercholesterolemia Qualified Code(s): E78.00 - Pure hypercholesterolemia, unspecified; E78.0 - Pure hypercholesterolemia Reason for Consult Date of Consultation: 10/15/18 Reason for Consultation: Chest pain, coronary disease, hypertension, hypercholesterolemia, tobacco abuse, recent non-STEMI, depression. History of Present Illness: The patient is a 47 year old M, tobacco user, with a history of hypertension, hypercholesterolemia, coronary disease recent non-STEMI on 09/12/18. At that time he underwent left heart catheterization which demonstrated a critical lesion in his mid diagonal branch which underwent successful stenting. He also had a ulcerated plaque with some haziness in the mid LAD at the bifurcation of the diagonal branch and despite multiple wires and efforts to get down the LAD we were unsuccessful in cannulating the vessel properly. Patient had CONCHITA-3 flow at the conclusion of the procedure and was subsequently sent home. Initial ly his chest pain completely resolved and he has been doing fairly well. The plan initially was for him to undergo medical therapy for about 3 months time, and then repeat stress testing and/or coronary catheterization after his LAD vessel had healed. The patient was doing well up until around 11 PM last evening when he was going to bed. He developed 2 out of 10 midsternal chest pain which she described as a pressure which radiated up into his left side of his neck and into his left shoulder and down his left arm. He reports that this was similar to his previous anginal symptoms. Patient took one sublingual nitroglycerin which apparently had minimal improvement. When it did not resolve he sought medical attention at [facility]. In the ER his EKG showed normal sinus rhythm, normal axis, normal intervals, no evidence of acute changes. His initial troponin was negative and has been negative x3. He has had no further chest pain overnight. On further history he claims he is no longer smoking and he is compliant with his medications. He has not yet started cardiac rehab given the concern of his remaining vessel. In addition after reviewing his catheterization this morning he also has a tubular 50% mid RCA stenosis which was going to be left for medical management or to be evaluated with either stress testing or flow wire at the time of his LAD intervention in the future. His telemetry of has been negative overnight. [] Past Medical History Allergies/Adverse Reactions: Allergies pregabalin [From Lyrica] Adverse Reaction (Verified 10/14/18 23:37) Itching Home Medications: Ambulatory Orders Medication Instructions Recorded Hydromorphone HCl [Dilaudid] 4 mg PO Q6H 02/17/16 Oxycodone HCl [Oxycontin] 20 mg PO BID 02/17/16 Sertraline HCl [Zoloft] 200 mg PO DAILY 02/17/16 Tiagabine HCl [Gabitril] 4 mg PO DAILY 02/17/16 Tizanidine HCl [Zanaflex] 8 mg PO QHS 02/17/16 lisinopril 10 mg tablet 10 mg PO QDAY 07/12/17 metformin 500 mg tablet 1,000 mg PO BID 07/12/17 Magnesium 250 mg PO DAILY 09/14/18 Multivitamin with Minerals 1 ea PO DAILY 09/14/18 [Multiple Vitamin] Omeprazole [Prilosec] 20 mg PO DAILY 09/14/18 Aspirin E.C. [Ecotrin] 81 mg PO DAILY@0800 tab 09/16/18 Nitroglycerin [Nitrostat] 0.4 mg SUBLINGUAL Q5M PRN #1 bottle 09/16/18 aripiprazole 2 mg tablet 2 mg PO DAILY tab 09/22/18 cinnamon bark 500 mg capsule 1,000 mg PO DAILY cap 09/22/18 duloxetine 60 mg capsule,delayed 120 mg PO DAILY cap 09/22/18 release Co Q10 200 [Co Q-10] 100 mg PO DAILY 10/06/18 Krill/Om-3/Dha/Epa/Phospho/Ast 1 each PO DAILY 10/06/18 [Megared [place]-3 Krill Oil Sfgl] atorvastatin 80 mg tablet 80 mg PO QHS #30 tab 10/12/18 carvedilol 3.125 mg tablet 3.125 mg PO BID #60 tab 10/12/18 rivaroxaban 15 mg tablet 15 mg PO DAILY #30 tab 10/12/18 ticagrelor 90 mg tablet 90 mg PO BID #60 tab 10/12/18 Past Medical History (Chronic Problems): Chronic Problems (Last Updated 09/22/18 @ 15:09 by Trina Garcia) Paroxysmal atrial fibrillation (Chronic) History of non-ST elevation myocardial infarction (NSTEMI) (Chronic 09/14/18) Stented coronary artery (Chronic 09/14/18) Successful PTCA/VENANCIO mid DIAG#1 with a 2.25 x 24 Promus Synergy (Unable to wire mid LAD despite trying multiple wires. Lesion is clustered at a bifurcation with several septals and due to possibility of accessing false lumen and reaching iv contrast dye threshold, no further attempts were made to cannulate with a wire. MID LAD lesion looked identical to original cath; no perforation and pt is completely asymptomatic. Will proceed with medical management with asa/brilinta and xeralto for PAF and allow vesselt to heal. if pt has recurrent CP or anterior ischemia, will consider another PCI attempt to mid LAD with new IV dye load) Anxiety and depression (Chronic) Tobacco use (Chronic) Benign essential HTN (Chronic) Chronic pain (Chronic) Depression (Chronic) DM2 (diabetes mellitus, type 2) (Chronic) HLD (hyperlipidemia) (Chronic) Surgical History: - - Lumbar back surgery, bilateral knee arthroscopic surgery with 3 left and one right surgery performed. Psychiatric History: Anxiety, Depression - *Family History Maternal Family History: Family History (Last Reviewed 09/22/18 @ 14:57 by Trina Garcia) Father Esophageal cancer Mother Arthritis History Items: - - Patient notes a maternal family history of HD. Paternal Family History: Family History (Last Reviewed 09/22/18 @ 14:57 by Trina Garcia) Father Esophageal cancer Mother Arthritis History Items: - - Father with a history of esophageal cancer. Lives: Spouse/ Significant Other Smoking Status: Former smoker Tobacco Use: Non-smoker Alcohol: Occasional Drugs: None Review of Systems - Review of Systems General: Denies: Fever, Night Sweats, Fatigue Cardiovascular: Reports: Chest Discomfort, Chest Discomfort at Rest, Chest Tightness. Denies: Shortness of Breath, Orthopnea, PND, Peripheral Edema, Palpitations, Lightheadedness, Dizziness, Near Syncope, Syncope Respiratory: Denies: Cough, Sputum Production, Hemoptysis Gastrointestinal: Denies: Hematemesis, Hematochezia, Melena Genitourinary: Denies: Dysuria, Hematuria Skin: Denies: Rash Subjectve: Patient lying in bed, no acute distress. at the bedside. Objective: Vital Signs Temp Pulse Resp BP Pulse Ox 97.9 F 69 16 132/63 H 95 10/15/18 05:40 10/15/18 06:59 10/15/18 05:40 10/15/18 05:40 10/15/18 07:05 Oxygen Flow Rate (L/min) 2 Oxygen Delivery Method Room Air Weight: 193 lb 12.581 oz Body Mass Index (BMI) 27.8 Intake and Output for Last 24 Hours 10/13/18 10/14/18 10/15/18 23:59 23:59 23:59 Intake Total 281 / 281 Balance 281 / 281 General: Awake, Alert, Oriented x 3 HEENT: PERRL, EOMI, Sclera Non Icteric Neck: Supple, Good ROM, No Lymph Node Enlargement Lungs: Clear to auscultation Cardiovascular: Regular Rhythm, Normal S1, Normal S2, No Murmurs, No Rubs, No Gallops Vascular: No Carotid Bruits, Normal Femoral Pulses, Normal Radial Pulses, Normal Dorsalis Pedal Pulse, Normal Posterior Tibial Pulses Abdomen: Bowel Sounds Present, Soft, Non Tender, No HSM, No Organomegaly Extremities: No Cyanosis, No Clubbing, No edema Neurological: No Focal Motor or Sensory Deficit 10/14/18 23:40: WBC 12.0 H, RBC 4.85, Hgb 14.6, Hct 42.6, MCV 87.8, MCH 30.1, MCHC 34.3, RDW 13.0, RDW Differential 40.9, Plt Count 178, MPV 11.3, Immature Gran % (Auto) 0.600, Neut % (Auto) 55.9, Lymph % (Auto) 32.2, [place] % (Auto) 9.2, Eos % (Auto) 1.5, Baso % (Auto) 0.6, Absolute Neuts (auto) 6.7, Total Counted Not Reportable 10/14/18 23:40: Sodium 137, Potassium 3.9, Chloride 104, Carbon Dioxide 26.0, Anion Gap 7, BUN 13, Creatinine 1.03, Est GFR (MDRD) Af Amer 100, Est GFR (MDRD) Non-Af 82, BUN/Creatinine Ratio 12.6, Glucose 306 H, Calcium 8.6, Troponin I < 0.015 10/14/18 23:40: Magnesium 1.7 10/15/18 02:27: Troponin I < 0.015 10/15/18 05:55: WBC 9.8, RBC 4.64, Hgb 13.7, Hct 40.7, MCV 87.7, MCH 29.5, MCHC 33.7, RDW 13.0, RDW Differential 40.1, Plt Count 142 L, MPV 10.8, Immature Gran % (Auto) 0.400, Neut % (Auto) 55.9, Lymph % (Auto) 31.7, [place] % (Auto) 9.8, Eos % (Auto) 1.7, Baso % (Auto) 0.5, Absolute Neuts (auto) 5.5, Total Counted Not Reportable 10/15/18 05:55: Sodium 141, Potassium 3.7, Chloride 109 H, Carbon Dioxide 25.0, Anion Gap 7, BUN 12, Creatinine 0.78, Est GFR (MDRD) Af Amer 137, Est GFR (MDRD) Non-Af 113, BUN/Creatinine Ratio 15.3, Glucose 179 H, Calcium 8.2 L 10/15/18 05:55: Troponin I < 0.015 Rhythm: EKG: ECHO: Stress Test: Cardiac Cath: PCI: CT Surgery: Holter monitor: EPS: PPM: CXR: Chest CT Scan: Assessment/Plan 1. Chest pain: I am uncertain whether the patient's chest pain is cardiac in nature. Although it is similar to his previous chest pain, there are some factors that point away from cardiac disease. The patient has a known pinched nerve in his neck, and occasionally has shooting pains down into his left side of his neck and left arm. Patient has been completely asymptomatic since his angioplasty and stenting of his diagonal about 1 month ago. Nonetheless the patient has a known remaining plaque in his mid LAD just after the takeoff of his diagonal branch and we had unsuccessful cannulation of this vessel. There was CONCHITA-3 flow at the completion of the procedure, and have recommended the patient undergo a treadmill echocardiogram to determine if he has exertional chest pain, EKG changes, or anterior ischemia. If any 1 of these are present on his stress test, I have a low threshold for repeat catheterization on Wednesday. In the meantime he will continue his baby aspirin, Brilinta, beta blockers and MARIYLN inhibitors. If his stress test is negative for all the above, I would continue to treat medically at this time. If the patient's stress test is abnormal for inferior ischemia that may indicate that he requires intervention of his 50% right coronary artery stenosis as evidenced by catheterization on 09/12/18. 2. Tobacco cessation: The patient claims he has not been smoking, and have encouraged him to continue smoking cessation. 3. Hyperlipidemia: Patient can continue statin based medications. We will repeat his lipid profile. 4. Thank you very much for the opportunity to participate in the cardiac care of your patient. Stress echo pending. Consultation time took place between 740 and 8:10 AM. Code Visit Inpatient E&M: 79449 Init Hosp L2
[2018-10-15 10:20] LABS: Cholesterol 111 mg/dL (200); High Density Lipoprotein 31 mg/dL; Triglycerides 167 mg/dL; Very Low Density Lipoprotein 33 mg/dL (5-40)
[2018-10-15] MEDS: ARIPiprazole 2 MG Tablet PO (10:51)
[2018-10-15] MEDS: Carvedilol 3.125 MG TABLET PO (10:51)
[2018-10-15] MEDS: Aspirin E.C. 81 MG Tablet PO (10:51)
[2018-10-15] MEDS: TICAGRELOR 90 MG TABLET PO (10:51)
[2018-10-15] MEDS: Sertraline 100 MG Tablet 200 MG PO (10:52)
[2018-10-15] MEDS: DULoxetine Hcl 60 MG Capsule 120 MG PO (10:52)
[2018-10-15] MEDS: Pantoprazole Sodium 20 MG Tablet PO (10:53)
--- NOTE | 2018-10-15 11:13 | PCM.DC ---
- Discharge Diagnoses Current Active Problems: Current Active and Chronic Problems (Last Updated 09/22/18 @ 15:09 by Trina Garcia) Chest pain (Acute) You will use the following diet at home:: Calorie/Carbohydrate Controlled (specify 1200, 1400, etc) - 1800 keiko Your food should be the consistency of: Regular Your liquids should be the consistency of: Regular/Thin Discharge Activity: Return to Normal Activity Weight Bearing Status: Full weight bearing Allergies/Adverse Reactions: Allergies pregabalin [From Lyrica] Adverse Reaction (Verified 10/14/18 23:37) Itching Medications to take at Discharge Hydromorphone HCl [Dilaudid] 4 mg PO Q6H 02/17/16 Oxycodone HCl [Oxycontin] 20 mg PO BID 02/17/16 Sertraline HCl [Zoloft] 200 mg PO DAILY 02/17/16 Tiagabine HCl [Gabitril] 4 mg PO DAILY 02/17/16 Tizanidine HCl [Zanaflex] 8 mg PO QHS 02/17/16 lisinopril 10 mg tablet 10 mg PO QDAY 07/12/17 metformin 500 mg tablet 1,000 mg PO BID 07/12/17 Multivitamin with Minerals [Multiple Vitamin] 1 ea PO DAILY 09/14/18 Omeprazole [Prilosec] 20 mg PO DAILY 09/14/18 Aspirin E.C. [Ecotrin] 81 mg PO DAILY@0800 tab 09/16/18 Nitroglycerin [Nitrostat] 0.4 mg SUBLINGUAL Q5M PRN #1 bottle 09/16/18 aripiprazole 2 mg tablet 2 mg PO DAILY tab 09/22/18 duloxetine 60 mg capsule,delayed release 120 mg PO DAILY cap 09/22/18 Krill/Om-3/Dha/Epa/Phospho/Ast [Megared [place]-3 Krill Oil Sfgl] 1 each PO DAILY 10/06/18 atorvastatin 80 mg tablet 80 mg PO QHS #30 tab 10/12/18 carvedilol 3.125 mg tablet 3.125 mg PO BID #60 tab 10/12/18 rivaroxaban 15 mg tablet 15 mg PO DAILY #30 tab 10/12/18 ticagrelor 90 mg tablet 90 mg PO BID #60 tab 10/12/18 Glimepiride [Amaryl] 2 mg PO DAILY #30 tablet 10/15/18 The following prescriptions were given: Glimepiride [Amaryl] 2 mg PO DAILY #30 tablet Primary Care Physician: Debra Fabian [Primary Care Provider] - Test Results: Test results from this visit will be discussed in further detail at your follow-up appointment, if applicable. Please Follow Up With: your family physican in 2-3 weeks Please Follow Up With: Rolando as directed
--- NOTE | 2018-10-15 11:47 | NURSING ---
pt care and med administration done by SN Barry, done under the supervision of this RN.
--- NOTE | 2018-10-16 08:23 | PCM.DC.SUM ---
Discharge Date and Diagnosis Date of Admission: 10/15/18 Date of Discharge: 10/15/18 - Primary Discharge Diagnosis #1 noncardiac chest pain #2 atherosclerotic heart disease #3 uncontrolled type 2 diabetes #4 hypertension #5 hyperlipidemia #6 paroxysmal atrial fibrillation - Secondary Discharge Diagnosis Chronic Problems (Last Updated 09/22/18 @ 15:09 by Trina Garcia) Paroxysmal atrial fibrillation (Chronic) History of non-ST elevation myocardial infarction (NSTEMI) (Chronic 09/14/18) Stented coronary artery (Chronic 09/14/18) Successful PTCA/VENANCIO mid DIAG#1 with a 2.25 x 24 Promus Synergy (Unable to wire mid LAD despite trying multiple wires. Lesion is clustered at a bifurcation with several septals and due to possibility of accessing false lumen and reaching iv contrast dye threshold, no further attempts were made to cannulate with a wire. MID LAD lesion looked identical to original cath; no perforation and pt is completely asymptomatic. Will proceed with medical management with asa/brilinta and xeralto for PAF and allow vesselt to heal. if pt has recurrent CP or anterior ischemia, will consider another PCI attempt to mid LAD with new IV dye load) Anxiety and depression (Chronic) Tobacco use (Chronic) Benign essential HTN (Chronic) Chronic pain (Chronic) Depression (Chronic) DM2 (diabetes mellitus, type 2) (Chronic) HLD (hyperlipidemia) (Chronic) Hospital Course and Treatment Operations: None Procedures: Nuclear stress test Summary of Care Provided: The patient is a 47 year old M who was seen in the emergency room at [facility] with a chief complaint of chest pain. Patient had been admitted a month ago at this facility for a non-STEMI, at that time he underwent a heart catheterization with stent placement. Patient complained of jaw, face, left arm, and chest discomfort and came to the emergency room for evaluation. Evaluation in the emergency room included an EKG which showed a normal sinus rhythm, there were no ischemic changes noted. Blood glucose was 303, troponin was unremarkable. Cardiology was contacted, patient was placed and observation status on PCU and enzymes were cycled and these remained normal. Patient underwent a nuclear stress test on 10/15/18 which was negative for reversible ischemia. On 10/15/18, patient was seen and examined: On examination he appeared in good health and spirits. Vital signs as documented. Skin warm and dry and without overt rashes. Neck without JVD. Lungs clear. Heart exam notable for regular rhythm, normal sounds and absence of murmurs, rubs or gallops. Abdomen unremarkable and without evidence of organomegaly, masses, or abdominal aortic enlargement. Extremities nonedematous. Neuro: Cranial nerves II through XII are grossly intact, no focal motor deficits were noted, sensation to light touch and pinprick intact. Psych: Patient is alert and oriented x3, he does not appear anxious or depressed On 10/15/18, patient was seen and examined and felt to be stable condition for discharge home. - Physical Exam Vital Signs Temp Pulse Resp BP Pulse Ox 97.2 F L 91 18 121/73 H 98 10/15/18 10:50 10/15/18 10:53 10/15/18 10:50 10/15/18 10:50 10/15/18 10:50 Oxygen Flow Rate (L/min) 2 Oxygen Delivery Method Room Air Weight: 87.9 kg Body Mass Index (BMI) 27.8 Intake and Output for Last 24 Hours 10/14/18 10/15/18 10/16/18 23:59 23:59 23:59 Intake Total 281 / 281 Balance 281 / 281 Laboratory Tests Past 24 Hrs 10/15/18 05:55 Triglycerides 167 Cholesterol 111 LDL Cholesterol 47 VLDL Cholesterol 33 HDL Cholesterol 31 L Discharge Activity: Return to Normal Activity Weight Bearing Status: Full weight bearing Home Medications: Medications to take at Discharge Hydromorphone HCl [Dilaudid] 4 mg PO Q6H 02/17/16 Oxycodone HCl [Oxycontin] 20 mg PO BID 02/17/16 Sertraline HCl [Zoloft] 200 mg PO DAILY 02/17/16 Tiagabine HCl [Gabitril] 4 mg PO DAILY 02/17/16 Tizanidine HCl [Zanaflex] 8 mg PO QHS 02/17/16 lisinopril 10 mg tablet 10 mg PO QDAY 07/12/17 metformin 500 mg tablet 1,000 mg PO BID 07/12/17 Multivitamin with Minerals [Multiple Vitamin] 1 ea PO DAILY 09/14/18 Omeprazole [Prilosec] 20 mg PO DAILY 09/14/18 Aspirin E.C. [Ecotrin] 81 mg PO DAILY@0800 tab 09/16/18 Nitroglycerin [Nitrostat] 0.4 mg SUBLINGUAL Q5M PRN #1 bottle 09/16/18 aripiprazole 2 mg tablet 2 mg PO DAILY tab 09/22/18 duloxetine 60 mg capsule,delayed release 120 mg PO DAILY cap 09/22/18 Krill/Om-3/Dha/Epa/Phospho/Ast [Megared [place]-3 Krill Oil Sfgl] 1 each PO DAILY 10/06/18 atorvastatin 80 mg tablet 80 mg PO QHS #30 tab 10/12/18 carvedilol 3.125 mg tablet 3.125 mg PO BID #60 tab 10/12/18 rivaroxaban 15 mg tablet 15 mg PO DAILY #30 tab 10/12/18 ticagrelor 90 mg tablet 90 mg PO BID #60 tab 10/12/18 Glimepiride [Amaryl] 2 mg PO DAILY #30 tablet 10/15/18 Following Prescrptions Were Given to Patient: Glimepiride [Amaryl] 2 mg PO DAILY #30 tablet Primary Care Physician: Debra Fabian [Primary Care Provider] - Please Follow Up With: Debra Fabian Please Follow Up With: Rolando as directed Disposition: Home Minutes spent on discharge:: 32 Patient Condition:: Stable Medical Necessity - Tobacco Use Smoking Status: Former smoker Tobacco Use: Non-smoker Meaningful Use Info Meaningful Use Diagnoses (Choose all that apply): None applicable Code Visit OBSV E&M: 12549 Observ/hosp same date L3
== END 2018-10-15 11:38 | disposition home or self-care (01) ==
LOC: ED 10-15 00:22 → PCU 10-15 01:36
PROVIDERS: Internal Medicine Cardiovascular Disease; Admitting Provider Family Medicine; Emergency Provider Emergency Medicine; Family Provider Family Medicine; PCP Family Medicine; Visit Provider Internal Medicine
DX: R07.89 Other chest pain (principal); I48.0 Paroxysmal atrial fibrillation; I25.2 Old myocardial infarction; I10 Essential (primary) hypertension; G89.4 Chronic pain syndrome; F41.9 Anxiety disorder, unspecified; F32.9 Major depressive disorder, single episode, unspecified; G47.33 Obstructive sleep apnea (adult) (pediatric); E78.5 Hyperlipidemia, unspecified; Z95.5 Presence of coronary angioplasty implant and graft; Z79.899 Other long term (current) drug therapy; Z79.82 Long term (current) use of aspirin; Z79.84 Long term (current) use of oral hypoglycemic drugs; Z87.891 Personal history of nicotine dependence; G58.8 Other specified mononeuropathies; I25.10 Atherosclerotic heart disease of native coronary artery without angina pectoris; E11.65 Type 2 diabetes mellitus with hyperglycemia
CPT/HCPCS: 36415; 71045; 80048; 80061; 82962; 83735; 84484; 85025; 93005; 93017; 93350; 96361; 96374; 96375; 96376; 99218; 99285; J7030; Q9957; A4216; C8928; G0378; J2405

== ENCOUNTER → 2019-01-17 14:39 | Outpatient (CLI) | payer MEDICARE, SELFPAY ==
[2018-09-14 13:29] VITALS: BMI 28.3
[2018-09-22 14:57] VITALS: BMI 26.9
[2018-11-21 14:20] VITALS: BMI 27.8
--- NOTE | 2019-01-17 14:40 | ECHOD_ITS ---
Reason For Study: CAD Procedure This was a 2D Doppler, Color Flow transthoracic echocardiogram. Exam performed in department. Left Ventricle Normal size and thickness. The estimated ejection fraction is 45-50 %. Stage 1 diastolic dysfunction. There is mild global hypokinesis of the left ventricle. Right Ventricle Normal size and thickness. Normal systolic function. Atria Normal left atrium. Normal right atrium. Normal atrial septum. Mitral Valve The mitral valve is structurally normal. No prolapse or stenosis seen. Tricuspid Valve Normal tricuspid valve. Trivial tricuspid valve insufficiency. Right ventricular systolic pressure estimated to be 23 mmHg. Aortic Valve Trisinus/trileaflet aortic valve. Pulmonic Valve Normal pulmonic valve. Mild (1+) pulmonic valve insufficiency identified. Great Vessels Normal aortic root. Normal arch. Normal inferior vena cava. Inferior vena cava collapse with sniff. Pericardium/Pleural No pericardial effusion. MMode/2D Measurements & Calculations LVIDd: 4.8 cm IVSd: 1.1 cm Ao root diam: 3.4 cm LVIDs: 3.8 cm LVPWd: 1.1 cm RVDd: 3.4 cm FS: 22.2 % LAV(MOD-bp): 58.9 ml LA A4 area: 19.7 cm2 LA dimension(2D): 4.3 cm LAV(MOD-bp) Indexed: 28.4 ml/m2 LAV(MOD-sp2): 51.9 ml LAV(MOD-sp4): 59.9 ml RA A4 area: 13.7 cm2 Time Measurements MV dec time: 0.26 sec Doppler Measurements & Calculations MV E max arun: 51.4 cm/sec Lat Peak E' Arun: 9.5 cm/sec Med Peak E' Arun: 5.4 cm/sec MV A max arun: 47.5 cm/sec E/E' lat: 5.4 E/E' med: 9.6 MV E/A: 1.1 Ao V2 max: 96.5 cm/sec LV V1 max: 76.9 cm/sec PA V2 max: 96.1 cm/sec Ao max P.7 mmHg LV V1 max P.4 mmHg PI end-d arun: 110.9 cm/sec TR max arun: 223.5 cm/sec TR max P.0 mmHg Interpretation Summary The estimated ejection fraction is 45-50 %. Stage 1 diastolic dysfunction. There is mild global hypokinesis of the left ventricle. Trivial tricuspid valve insufficiency. Right ventricular systolic pressure estimated to be 23 mmHg. Compared to echo report dated 09/15/2018, no appreciable changes noted. Ordering Physician: Gerber Marshall Referring Physician: Michael De Jesus Performed By: Jamila Salguero, TOMAS, RVT
== END ==
PROVIDERS: Family Provider Internal Medicine; PCP Internal Medicine; Referring Provider Internal Medicine Cardiovascular Disease; Visit Provider Internal Medicine Cardiovascular Disease
DX: I48.0 Paroxysmal atrial fibrillation (principal)
CPT/HCPCS: 93306

== ENCOUNTER 2019-02-10 15:41 | Inpatient (IN) | payer MEDICARE, MEDICAID, SELFPAY ==
[2018-09-14 13:29] VITALS: BMI 28.3
[2019-01-30 14:54] VITALS: BMI 29.7
[2019-02-10] VITALS (19 sets, daily range): BP systolic 103–129; BP diastolic 62–74; PULSE 60–74; RESP 11–19; TEMP 36.6–36.9; O2SAT 95–100; BMI 30.9; BMI 29.7
--- NOTE | 2019-02-10 16:15 | EKG12_ITS ---
Test Reason : CP Blood Pressure : / mmHG Vent. Rate : 068 BPM Atrial Rate : 068 BPM P-R Int : 142 ms QRS Dur : 086 ms QT Int : 430 ms P-R-T Axes : 056 028 067 degrees QTc Int : 457 ms Normal sinus rhythm Normal ECG Confirmed by YULI LEGGETT, DORA ([id number]), newspaper editor RUIZ RAYGOZA ([id number]) on 02/13/2019 1:50:06 PM Referred By: Mayela Srinivasan Confirmed By:DORA ROLDAN MD
--- NOTE | 2019-02-10 16:20 | RAD_ITS ---
STUDY: X-RAY CHEST REASON FOR EXAM: Male, 48 years old. Chest pain TECHNIQUE: Single frontal view of the chest. COMPARISON: 10/15/2018 FINDINGS: The lungs are clear and expanded. There is no demonstrated pleural abnormality. Normal size heart. Normal mediastinum and oseas. Normal visualized pulmonary arteries. Normal visualized aortic arch and descending thoracic aorta. Normal visualized thoracic spine. Normal visualized ribs, clavicles, and shoulders. There is no demonstrated abnormality of the visualized soft tissue structures of the upper abdomen. RAD/Chest 1 View (Portable) IMPRESSION: Normal x-ray examination of the chest. Electronically Signed: Otilio Appiah MD at 17:12 EDT Tel , Service support ,
[2019-02-10] MEDS: Nitroglycerin SL (ED/IMG/CATH) 0.4 MG TABLET SUBLINGUAL ×2 (16:33→16:39)
[2019-02-10 16:40] LABS: Absolute Lymphocyte Count 2.81 X10^3/uL (0.83-4.51); Absolute Neutrophil Count 7.3 X10^3/uL (2.0-7.7); Basophil# 0.09 X10^3/uL; Basophil% 0.8 % (0-1); Eosinophil# 0.35 X10^3/uL; Hematocrit 50.1 % (40-54); Hemoglobin 16.7 g/dL (13.0-16.5); Lymphocyte # 2.81 X10^3/ul (4.0); Lymphocyte % 24.1 % (19-41); Mean Corp Hgb Conc 33.3 g/dL (32-36); Mean Corpuscular Hgb 29.8 pg (27.0-32.0); Mean Corpuscular Volume 89.3 fL (80-94); Mean Platelet Vol. 11.1 fl (6.2-12.0); Monocyte# 1.06 X10^3/uL; Monocyte% 9.1 % (0-10); NRBC Flagged by Analyzer 0 % (0-5); Neutrophil # 7.28 X10^3/uL (2.7-7.7); Neutrophil % 62.5 % (47-70); Platelet Count 181 K/mm3 (150-450); RBC Distribution Width CV 12.2 % (11.6-14.6); RBC Distribution Width SD 40.3 fl (35.1-43.9); Red Blood Count 5.61 M/mm3 (4.6-6.2); White Blood Count 11.7 K/mm3 (4.4-11.0)
[2019-02-10] MEDS: Morphine 4 MG/ML Syringe IV (16:46)
[2019-02-10 16:53] LABS: Anion Gap 5 (5-15); BUN 13 mg/dL (7-18); BUN/Creat Ratio 11.4 RATIO (10-20); Calcium,Total 9.4 mg/dL (8.5-10.1); Chloride 105 mmol/L (98-107); Creatinine, Serum 1.14 mg/dL (0.70-1.30); EST Glomerular Filtration Rate 73 mL/min (>60); Est Glom Filt Rate - Afr Amer 88 mL/min (>60); Estimated Creatinine Clearance 82.71 ml/min; Glucose 167 mg/dL (74-106); Potassium 3.7 mmol/L (3.5-5.1); Sodium Level 138 mmol/L (136-145)
--- NOTE | 2019-02-10 17:03 | ED.DCSUM_ITS ---
History of Present Illness Chief Complaint: Chest Pain Informant: Patient, Significant Other Onset: Today Context: Sudden Onset Timing: Continuous Quality: Comfort left neck, trapezius and shoulder Location: Pain similar to VA September 2018 Current Severity: Mild Maximum Severity: Severe Worsened by: Nothing Relieved by: Improved after 3 nitro at home Associated Symptoms: Dyspnea, diaphoresis Narrative: Patient is a 48-year-old male with multiple risk factors coronary disease who had a non-STEMI September 2018. He had successful angioplasty and stent placed mid diagonal. On successful navigation of wire through the mid LAD lesion. The cath report indicated CONCHITA-3 flow after attempt to pass wire passed LAD lesion. He states the pain and symptoms he had prior to presentation was what he experienced when he had VA September 2018. He denies hematemesis, melena hematochezia. Denies history of PE or DVT. He does have history of cervical disc disease. He does not describe radicular pain. He denies URI symptoms. He has no other complaints Prior similar symptoms: Yes - VA September 2018 Recent Illness/Hospitalization: No - Past Medical History (1) Anxiety and depression Status: Chronic (2) Atherosclerosis of [place] coronary artery of [place] heart without angina pectoris Status: Chronic Comment: Successful PTCA/VENANCIO mid DIAG#1 with a 2.25 x 24 Promus Synergy (3) Benign essential HTN Status: Chronic (4) DM2 (diabetes mellitus, type 2) Status: Chronic (5) Depression Status: Chronic (6) HLD (hyperlipidemia) Status: Chronic (7) Paroxysmal atrial fibrillation Status: Chronic (8) Stented coronary artery Status: Chronic Comment: Successful PTCA/VENANCIO mid DIAG#1 with a 2.25 x 24 Promus Synergy (Unable to wire mid LAD despite trying multiple wires. Lesion is clustered at a bifurcation with several septals and due to possibility of accessing false lumen and reaching iv contrast dye threshold, no further attempts were made to cannulate with a wire. MID LAD lesion looked identical to original cath; no perforation and pt is completely asymptomatic. Will proceed with medical management with asa/brilinta and xeralto for PAF and allow vesselt to heal. if pt has recurrent CP or anterior ischemia, will consider another PCI attempt to mid LAD with new IV dye load) Past Medical History - Allergies and Home Meds Allergies/Adverse Reactions: Allergies pregabalin [From Lyrica] Adverse Reaction (Verified 02/10/19 15:52) Itching Primary Care Physician: Michael De Jesus MD [Primary Care Provider] - Prior records reviewed: Yes Surgical History: - - Lumbar back surgery, bilateral knee arthroscopic surgery with 3 left and one right surgery performed. Lives: Spouse/ Significant Other Smoking Status: Former smoker Alcohol: Rare Drugs: None - Family History Maternal Family History: Family History (Last Updated 11/21/18 @ 14:23 by Karin Boogie) Father Esophageal cancer Diabetes Myocardial infarction Mother Arthritis Diabetes Family History: Reports: - - Patient notes a maternal family history of HD. Paternal Family History: Family History (Last Updated 11/21/18 @ 14:23 by Karin Boogie) Father Esophageal cancer Diabetes Myocardial infarction Mother Arthritis Diabetes Family History: Reports: - - Father with a history of esophageal cancer. Review of Systems General: Denies: Chills, Fever, Sweats Eyes: Denies: Visual changes - bilaterally, Diplopia ENT: Denies: Rhinorrhea, Sore throat Cardiovascular: Reports: Palpitations Respiratory: Reports: Dyspnea Gastrointestinal: Denies: Abdominal pain, Nausea, Vomiting, Diarrhea, Melena, Hematochezia Genitourinary: Denies: Dysuria, Hematuria, Frequency Musculoskeletal: Denies: Back pain, Extremity Pain Skin: Denies: Rash, Wounds Neurological: Denies: Headache, Weakness, Numbness Hematologic: Denies: Easy bruising, Easy bleeding Allergy: Denies: Uticaria, Swelling of the mouth Physical Exam Vital Signs/Narrative: Vital Signs Temp Pulse Resp BP Pulse Ox 02/10/19 16:38 73 13 117/73 96 02/10/19 16:34 69 13 120/74 97 02/10/19 15:52 69 13 125/67 H 96 02/10/19 15:47 97.8 F 74 17 125/67 H 97 Inital Vital Signs reviewed: Yes General: Well nourished, Well developed, No Acute Distress Head: Normocephalic, Atraumatic Eyes: Perrl, EOMI ENT: Moist mucous membranes, No rhinorrhea Neck: Supple, Nontender Cardiovascular: Regular rate, Regular rhythm, No murmurs Respiratory: No distress, CTA bilaterally, Chest nontender Abdomen: Soft, Nontender, Nondistended, Normal bowel sounds, No masses Back: Nontender, Normal Inspection. Negative for: CVA tenderness Extremities: Nontender, No edema Skin: Normal color, No rash Neurological: Alert, Oriented x3, Cranial nerves II-XII grossly intact, Normal Strength, Normal Sensation Psychological: Normal affect, Normal Mood Diagnostic/Tx/Re-eval Chest X-Ray - ED: 1 View, Read by ED Physician, Normal, Heart, Lungs, Mediastinum, Bony Structures, No Acute Disease, Chronic Changes 02/10/19 16:20 Chest 1 View (Portable) [RAD] Stat Laboratory Results 02/10/19 02/10/19 15:50 15:50 WBC 11.7 H RBC 5.61 Hgb 16.7 H Hct 50.1 MCV 89.3 MCH 29.8 MCHC 33.3 RDW Std Deviation 40.3 RDW Coeff of Sarahi 12.2 Plt Count 181 MPV 11.1 Immature Gran % (Auto) 0.500 Neut % (Auto) 62.5 Lymph % (Auto) 24.1 [place] % (Auto) 9.1 Eos % (Auto) 3.0 Baso % (Auto) 0.8 Absolute Neuts (auto) 7.3 Absolute Lymphs (auto) 2.81 Nucleated RBC % 0 Sodium 138 Potassium 3.7 Chloride 105 Carbon Dioxide 28.0 Anion Gap 5 BUN 13 Creatinine 1.14 Estim Creat Clear Calc 82.71 Est GFR (MDRD) Af Amer 88 Est GFR (MDRD) Non-Af 73 BUN/Creatinine Ratio 11.4 Glucose 167 H Calcium 9.4 Troponin I < 0.015 - Rhythm Strip Rhythm Strip: Sinus Rhythm - EKG Initial EKG Interpretation: Sinus Rhythm - Ventricular rate is 68. Anterior force is decreased suggestive of septal infarct. WV interval is 142 ms. QRS durations 86 ms. QT duration is 430 ms. Nice is normal. - Medical Decision Making In light of unsuccessful angioplasty and stenting of mid LAD lesion and symptoms similar to VA September 2018 concern patient is having unstable angina. He was treated with nitro and morphine. He took his aspirin and Plavix this morning. He was not given additional dose of aspirin. He reports some improvement after nitro and morphine. He is not pain-free. He subsequently developed right shoulder pain which increases I would ratio for cardiac etiology. His work-up presently is unremarkable. There is no evidence of STEMI or obvious ischemic EKG changes. Case discussed with hospitalist. Patient to be admitted ICU. Did discuss case with Dr. Combs. And asked specifically about antic regulation. He requested Lovenox. Since patient is still having discomfort will place on nitro drip and admit to ICU/CCU. - Critical Care Time Critical care time (excluding procedures): 30-74 minutes - 32 minutes, Discussing w/Patient &/or Family/Package Center Supervisor, Discussing w/Consultants, Arranging Admission or Transfer ED Disposition - Plan for ED Patient: Disposition: Acute Care Hospital [facility] [place] Diagnosis: Unstable angina pectoris due to coronary arteriosclerosis Referrals: Michael De Jesus MD [Primary Care Provider] -
--- NOTE | 2019-02-10 17:25 | HP.PCM_ITS ---
History of Present Illness Date of Admission: 02/10/19 Chief Complaint: chest pain The patient is a 48 year old M with a PMH as listed. He was admitted with a complaint of chest pain, left neck pain and jaw pain. Pain started at ~ 2:40pm this afternoon. Pain was pressure like, with no associated nausea and vomiting, but had some lightheadeness or dizziness. Symptoms were similar to when he presented for his NSTEMI in September 2018, so he came in to the ED. Review of systems was otherwise negative. vitals were WNL, and CBC was only remarkable for wbc of 11.7. BMP was unremarkable, and initial troponin was negative. CXR showed no acute cardiopulmonary process. In September, his troponin peaked at 11 and he underwent an urgent left heart catheterization which demonstrated two- vessel coronary artery disease in his diagonal and middle LAD. He had successful angioplasty and VENANCIO placement in the mid diagonal but there was difficulty accessing the LAD and this was left for medical therapy. Based on his history of an occluded LAD, patient has been admitted to the ICU and started on heparin drip and therapeutic Lovenox. Cardiology consulted and needs to be managed for unstable angina. Past Medical History Past Medical History (Chronic Problems): Chronic Problems (Last Updated 09/22/18 @ 15:09 by Trina Gracia) Atherosclerosis of [place] coronary artery of [place] heart without angina pectoris (Chronic) Successful PTCA/VENANCIO mid DIAG#1 with a 2.25 x 24 Promus Synergy Paroxysmal atrial fibrillation (Chronic) History of non-ST elevation myocardial infarction (NSTEMI) (Chronic 09/14/18) Stented coronary artery (Chronic 09/14/18) Successful PTCA/VENANCIO mid DIAG#1 with a 2.25 x 24 Promus Synergy (Unable to wire mid LAD despite trying multiple wires. Lesion is clustered at a bifurcation with several septals and due to possibility of accessing false lumen and reaching iv contrast dye threshold, no further attempts were made to cannulate with a wire. MID LAD lesion looked identical to original cath; no perforation and pt is completely asymptomatic. Will proceed with medical management with asa/brilinta and xeralto for PAF and allow vesselt to heal. if pt has recurrent CP or anterior ischemia, will consider another PCI attempt to mid LAD with new IV dye load) Anxiety and depression (Chronic) Tobacco use (Chronic) Benign essential HTN (Chronic) Chronic pain (Chronic) Depression (Chronic) DM2 (diabetes mellitus, type 2) (Chronic) HLD (hyperlipidemia) (Chronic) Medical History: Medical History (Last Updated 09/22/18 @ 15:09 by Trina Garcia) Paroxysmal atrial fibrillation (Chronic) I48.0 History of non-ST elevation myocardial infarction (NSTEMI) (Chronic) Onset Date: 09/14/18 I25.2 Unstable angina (Resolved) I20.0 Tobacco use (Chronic) Z72.0 Benign essential HTN (Chronic) I10 Chronic pain (Chronic) G89.29 DM2 (diabetes mellitus, type 2) (Chronic) E11.9 HLD (hyperlipidemia) (Chronic) E78.5 Herniated disc back Allergies pregabalin [From Lyrica] Adverse Reaction (Verified 02/10/19 15:52) Itching Home Medications: Ambulatory Orders Medication Instructions Recorded Hydromorphone HCl [Dilaudid] 4 mg PO Q6H 02/17/16 Sertraline HCl [Zoloft] 200 mg PO DAILY 02/17/16 Tiagabine HCl [Gabitril] 4 mg PO DAILY 02/17/16 Multivitamin with Minerals 1 ea PO DAILY 09/14/18 [Multiple Vitamin] Nitroglycerin (INPATIENT USE) 0.4 mg SUBLINGUAL Q5M PRN #1 bottle 09/16/18 [Nitrostat] aripiprazole 2 mg tablet 2 mg PO DAILY tab 09/22/18 duloxetine 60 mg capsule,delayed 120 mg PO DAILY cap 09/22/18 release Krill/Om-3/Dha/Epa/Phospho/Ast 1 ea PO DAILY 10/06/18 [Megared Leslie-3 Krill Oil Sfgl] glimepiride 2 mg tablet 2 mg PO DAILY #90 tab 11/21/18 metformin 500 mg tablet 1,000 mg PO BID #360 tab 11/21/18 omeprazole 20 mg capsule,delayed 20 mg PO DAILY #90 cap 11/21/18 release aspirin 81 mg tablet,delayed 81 mg PO DAILY #90 tab 01/30/19 release carvedilol 3.125 mg tablet 3.125 mg PO BID #60 tab 01/30/19 morphine ER 30 mg capsule,extended 30 mg PO BID 01/30/19 release 24 hr multiphase rivaroxaban 15 mg tablet 15 mg PO DAILY #30 tab 01/30/19 ticagrelor 90 mg tablet 90 mg PO BID #60 tab 01/30/19 Atorvastatin Calcium 80 mg PO DAILY 02/10/19 Bupropion HCl [Wellbutrin Xl] 150 mg PO DAILY 02/10/19 Lisinopril [Prinivil] 10 mg PO DAILY 02/10/19 Tiagabine HCl 8 mg PO QHS 02/10/19 Trazodone HCl 50 mg PO QHS PRN PRN 02/10/19 Surgical History: Surgical History (Last Updated 11/21/18 @ 14:23 by Karin Boogie) Stented coronary artery (Chronic) Onset Date: 09/14/18 Z95.5 Successful PTCA/VENANCIO mid DIAG#1 with a 2.25 x 24 Promus Synergy (Unable to wire mid LAD despite trying multiple wires. Lesion is clustered at a bifurcation with several septals and due to possibility of accessing false lumen and reaching iv contrast dye threshold, no further attempts were made to cannulate with a wire. MID LAD lesion looked identical to original cath; no perforation and pt is completely asymptomatic. Will proceed with medical management with asa/brilinta and xeralto for PAF and allow vesselt to heal. if pt has recurrent CP or anterior ischemia, will consider another PCI attempt to mid LAD with new IV dye load) History of arthroscopic knee surgery Z98.89 History of back surgery Z98.890 2009 H/O arthroscopic knee surgery Z98.890 x3 left knee s/p back Surgical History: - - Lumbar back surgery, bilateral knee arthroscopic surgery with 3 left and one right surgery performed. Psychiatric History: Anxiety, Depression Lives: Spouse/ Significant Other Smoking Status: Former smoker Alcohol: Rare Drugs: None - *Family History Maternal Family History: Family History (Last Updated 11/21/18 @ 14:23 by Karin Boogie) Father Esophageal cancer Diabetes Myocardial infarction Mother Arthritis Diabetes History Items: - - Patient notes a maternal family history of HD. Paternal Family History: Family History (Last Updated 11/21/18 @ 14:23 by Karin Boogie) Father Esophageal cancer Diabetes Myocardial infarction Mother Arthritis Diabetes History Items: - - Father with a history of esophageal cancer. Review of Systems Constitutional: Denies: Chills, Fever, Malaise, Weakness, Weight Change, Fatigue Eyes: Denies: Blurred vision HEENT: Denies: Head Aches, Sinus Congestion, Sinus Drainage Cardiovascular: Reports: Chest Pain, Chest Pressure, Light Headedness. Denies: Chest Tightness, Edema, Heaviness, Orthopnea, Palpitations, Paroxysmal Noc. Dyspnea, Syncope Respiratory: Denies: Cough, Shortness of Breath, Shortness of breath at rest, S hortness of breath upon exertion, Sputum production Gastrointestinal: Denies: Abdominal Pain, Nausea, Vomiting Genitourinary: Denies: Dysuria Musculoskeletal: Denies: Joint Pain, Joint Tenderness Skin: Denies: Rash, Wounds Neurological: Denies: Numbness, Tingling, Focal weakness Psychiatric: Denies: Anxiety, Depression, Homicidal Ideations, Suicidal Ideations Hematologic/ Lymphatic: Denies: Easy Bruising, Easy Bleeding VTE Information - Inpt Only VTE Present on Admission: No VTE Pharm Prophylaxis ordered?: Yes Patient Problems: Active and Suspected Problems (Last Updated 09/22/18 @ 15:09 by Trina Garcia) Unstable angina pectoris due to coronary arteriosclerosis (Acute) - Physical Exam General: Alert, Oriented x3, Cooperative, No apparent distress HEENT: Atraumatic, PERRLA, EOMI, Normocephalic Oral: Dry Mucosa Neck: Supple, No JVD, Negative Carotid Bruits Lungs: Clear to auscultation, Normal air movement, No rhonchi, No wheeze Cardiovascular: Regular rate, Regular Rhythm, Normal S1, Normal S2, No murmurs Abdomen: Bowel Sounds Present, Soft, Non Tender, Non-Distended, No Hepato- splenomegaly Extremities: No clubbing, No cyanosis, No edema, Capillary Refill Less than 3 Seconds Skin: No rashes, No breakdown Musculoskeletal: No Tenderness to Palpation of Joints or Extremities Lymphatic: No Cervical, Supraclavicular, or Inguinal Adenopathy Neurological: Cranial nerves II-XII grossly intact, Neuro grossly intact, Motor Exam 5/5 strength throughout Psych/Mental Status: Normal Affect, Appropriate, Alert and oriented to time, place, person, mood and affect Vital Signs Temp Pulse Resp BP Pulse Ox 97.8 F 70 13 109/65 96 02/10/19 15:47 02/10/19 17:23 02/10/19 17:23 02/10/19 17:23 02/10/19 17:23 Oxygen Delivery Method Room Air Weight: 215 lb 2.738 oz Body Mass Index (BMI) 30.9 Laboratory Tests Past 24 Hrs 02/10/19 02/10/19 15:50 15:50 WBC 11.7 H RBC 5.61 Hgb 16.7 H Hct 50.1 MCV 89.3 MCH 29.8 MCHC 33.3 RDW Std Deviation 40.3 RDW Coeff of Sarahi 12.2 Plt Count 181 MPV 11.1 Immature Gran % (Auto) 0.500 Neut % (Auto) 62.5 Lymph % (Auto) 24.1 [place] % (Auto) 9.1 Eos % (Auto) 3.0 Baso % (Auto) 0.8 Absolute Neuts (auto) 7.3 Absolute Lymphs (auto) 2.81 Nucleated RBC % 0 Sodium 138 Potassium 3.7 Chloride 105 Carbon Dioxide 28.0 Anion Gap 5 BUN 13 Creatinine 1.14 Estim Creat Clear Calc 82.71 Est GFR (MDRD) Af Amer 88 Est GFR (MDRD) Non-Af 73 BUN/Creatinine Ratio 11.4 Glucose 167 H Calcium 9.4 Troponin I < 0.015 Diagnostic Data Chest X-Ray 02/10/19 16:20 IMPRESSION: Normal x-ray examination of the chest. Electronically Signed: Otilio Appiah MD at 17:12 EDT Tel , Service support , Assessment/Plan All Active Problems (Last Updated 09/22/18 @ 15:09 by Trina Garcia) Unstable angina pectoris due to coronary arteriosclerosis (Acute) Chest pain (Acute) Unstable angina (Resolved) NSTEMI (non-ST elevated myocardial infarction) (Resolved 09/14/18) 48 y/o admitted with a complaint of chest pain 1. Unstable angina * admit to cardiac ICU * initial troponin is negative, and EKG showed no acute ST changes * based on his previous history of NSTEMI and cardiac cath finding of occluded LAD which wasnt stented (had stent placed in diagonal artery), and his persistent chest pain, paitent will be started on nitro drip . patient already anticoagulated on xarelto * continue statin and aspirin as well as Brilinta * Cardiology consulted. * Cardiac cath tomorrow. * 2. Hypertension: on carvedilol and lisinopril. BP controlled. Hold BP meds for now as he is being started on nitro drip 3. Hyperlipidemia: on statin 4. Diabetes mellitus: Hold metformin and glimepiride. Insulin sliding scale. Accu-Cheks before meals at bedtime. 5. Depression: On Wellbutrin and paper so as well as Zoloft. 6. Chronic back pain due to herniated disc: 7. Paroxysmal atrial fibrillation: On carvedilol. Hold Xarelto DVT prophylaxis: SCDs. On xarelto Code Visit Inpatient E&M: 56072 Init Hosp L3
[2019-02-10] MEDS: Nitroglycerin Infusion 250 ML 3 MG CONT INF (17:50)
[2019-02-10] MEDS: HYDROmorphone 2 MG TABLET 4 MG PO (21:19)
[2019-02-10] MEDS: ALPRAZolam 0.25 MG Tablet PO (21:20)
[2019-02-10] MEDS: TICAGRELOR 90 MG TABLET PO (22:05)
[2019-02-10 22:21] LABS: Bedside Glucose 149 mg/dL (70-110)
[2019-02-10] MEDS: traZODone 50 MG Tablet PO (23:38)
[2019-02-10] MEDS: 0.9% NaCl Peripheral Flush Adult/Peds IV (23:41)
[2019-02-11] VITALS (19 sets, daily range): BP systolic 97–140; BP diastolic 43–82; PULSE 60–98; RESP 11–22; TEMP 36.7–36.9; O2SAT 93–100
[2019-02-11] MEDS: HYDROmorphone 2 MG TABLET 4 MG PO ×4 (02:10→17:50)
[2019-02-11 02:25] LABS: Absolute Lymphocyte Count 2.74 X10^3/uL (0.83-4.51); Absolute Neutrophil Count 3.8 X10^3/uL (2.0-7.7); Basophil# 0.04 X10^3/uL; Basophil% 0.5 % (0-1); Eosinophil# 0.27 X10^3/uL; Eosinophils% 3.5 % (0-5); Hematocrit 44.1 % (40-54); Hemoglobin 14.6 g/dL (13.0-16.5); Lymphocyte # 2.74 X10^3/ul (4.0); Lymphocyte % 35.4 % (19-41); Mean Corp Hgb Conc 33.1 g/dL (32-36); Mean Corpuscular Hgb 29.7 pg (27.0-32.0); Mean Corpuscular Volume 89.8 fL (80-94); Mean Platelet Vol. 10.6 fl (6.2-12.0); Monocyte# 0.82 X10^3/uL; Monocyte% 10.6 % (0-10); NRBC Flagged by Analyzer 0 % (0-5); Neutrophil # 3.84 X10^3/uL (2.7-7.7); Neutrophil % 49.7 % (47-70); Platelet Count 144 K/mm3 (150-450); RBC Distribution Width CV 12.2 % (11.6-14.6); RBC Distribution Width SD 40.1 fl (35.1-43.9); Red Blood Count 4.91 M/mm3 (4.6-6.2); White Blood Count 7.7 K/mm3 (4.4-11.0)
[2019-02-11 02:37] LABS: Anion Gap 4 (5-15); BUN 12 mg/dL (7-18); BUN/Creat Ratio 12.9 RATIO (10-20); Calcium,Total 8.5 mg/dL (8.5-10.1); Chloride 108 mmol/L (98-107); Creatinine, Serum 0.93 mg/dL (0.70-1.30); EST Glomerular Filtration Rate 92 mL/min (>60); Est Glom Filt Rate - Afr Amer 112 mL/min (>60); Estimated Creatinine Clearance 101.39 ml/min; Glucose 130 mg/dL (74-106); Potassium 3.6 mmol/L (3.5-5.1); Sodium Level 140 mmol/L (136-145)
--- NOTE | 2019-02-11 07:32 | PN_ITS ---
Patient Problems: Active and Suspected Problems (Last Updated 09/22/18 @ 15:09 by Trina Garcia) Unstable angina pectoris due to coronary arteriosclerosis (Acute) Vitals/I&O's: Vital Signs Temp Pulse Resp BP Pulse Ox 98.1 F 98 11 L 120/70 96 02/11/19 04:00 02/11/19 06:00 02/11/19 06:00 02/11/19 06:00 02/11/19 06:00 Oxygen Flow Rate (L/min) 2 Oxygen Delivery Method Room Air Weight: 95.9 kg Body Mass Index (BMI) 29.7 Intake and Output for Last 24 Hours 02/09/19 02/10/19 02/11/19 23:59 23:59 23:59 Intake Total 494.1 / 494.1 120 / 120 Output Total 500 / 500 Balance 494.1 / 494.1 -380 / -380 Laboratory Results 02/10/19 15:50: WBC 11.7 H, RBC 5.61, Hgb 16.7 H, Hct 50.1, MCV 89.3, MCH 29.8, MCHC 33.3, RDW Std Deviation 40.3, RDW Coeff of Sarahi 12.2, Plt Count 181, MPV 11.1, Immature Gran % (Auto) 0.500, Neut % (Auto) 62.5, Lymph % (Auto) 24.1, [place] % (Auto) 9.1, Eos % (Auto) 3.0, Baso % (Auto) 0.8, Absolute Neuts (auto) 7.3, Absolute Lymphs (auto) 2.81, Nucleated RBC % 0 02/10/19 15:50: Sodium 138, Potassium 3.7, Chloride 105, Carbon Dioxide 28.0, Anion Gap 5, BUN 13, Creatinine 1.14, Estim Creat Clear Calc 82.71, Est GFR (MDRD) Af Amer 88, Est GFR (MDRD) Non-Af 73, BUN/Creatinine Ratio 11.4, Glucose 167 H, Calcium 9.4, Troponin I < 0.015 02/10/19 20:45: Troponin I < 0.015 02/10/19 22:10: POC Glucose 149 H 02/10/19 23:40: Troponin I < 0.015 02/11/19 02:10: Sodium 140, Potassium 3.6, Chloride 108 H, Carbon Dioxide 28.0, Anion Gap 4 L, BUN 12, Creatinine 0.93, Estim Creat Clear Calc 101.39, Est GFR (MDRD) Af Amer 112, Est GFR (MDRD) Non-Af 92, BUN/Creatinine Ratio 12.9, Glucose 130 H, Calcium 8.5 02/11/19 02:10: WBC 7.7, RBC 4.91, Hgb 14.6, Hct 44.1, MCV 89.8, MCH 29.7, MCHC 33.1, RDW Std Deviation 40.1, RDW Coeff of Sarahi 12.2, Plt Count 144 L, MPV 10.6, Immature Gran % (Auto) 0.300, Neut % (Auto) 49.7, Lymph % (Auto) 35.4, [place] % (Auto) 10.6 H, Eos % (Auto) 3.5, Baso % (Auto) 0.5, Absolute Neuts (auto) 3.8, Absolute Lymphs (auto) 2.74, Nucleated RBC % 0 02/11/19 02:10: Troponin I < 0.015 Current Medications Aripiprazole (Abilify) 2 mg PO DAILY [facility] Aspirin (Ecotrin) 81 mg PO DAILYCM [facility] Atorvastatin Calcium (Lipitor) 80 mg PO QHS [facility] Bupropion HCl (Wellbutrin Xl) 150 mg PO DAILY [facility] Dextrose (D50w Syringe) 0 gm IV X1 PRN; Protocol PRN Reason: Hypoglycemia Duloxetine HCl (Cymbalta) 120 mg PO DAILY [facility] Glucagon () 1 mg IM .X1 PRN PRN Reason: Hypoglycemia Hydromorphone HCl (Dilaudid Tablet) 4 mg PO Q6 [facility] Last Admin: 02/11/19 06:19 Dose: 4 mg Documented by: Nitroglycerin/Dextrose () 250 mls @ 3 mls/hr CONT INF .[id number] [facility] Last Admin: 02/10/19 17:50 Dose: 3 mls/hr Documented by: Insulin Human Lispro (Humalog Kwikpen (Bkc)) 0 unit SC ACHS [facility]; Protocol Last Admin: 02/10/19 22:11 Dose: Not Given Documented by: Morphine Sulfate (Ms Contin) 30 mg PO BID [facility] Last Admin: 02/10/19 22:04 Dose: 30 mg Documented by: Multivitamins/Minerals (Multivitamin With Minerals) 1 tablet PO DAILY@0800 [facility] Nitroglycerin (Nitrostat) 0.4 mg SUBLINGUAL Q5M PRN PRN Reason: Chest pain Last Admin: 02/10/19 16:39 Dose: 0.4 mg Documented by: Nitroglycerin (Nitrostat) 0.4 mg SUBLINGUAL Q5M PRN PRN Reason: CARDIAC/CHEST PAIN Pantoprazole Sodium (Protonix) 20 mg PO DAILY [facility] Sertraline HCl (Zoloft) 200 mg PO DAILY [facility] Sodium Chloride () 10 - 40 ml IV UD PRN PRN Reason: SALINE FLUSH Last Admin: 02/10/19 23:41 Dose: 40 ml Documented by: Tiagabine HCl (Gabitril) 4 mg PO DAILY [facility] Ticagrelor (Brilinta) 90 mg PO BID [facility] Last Admin: 02/10/19 22:05 Dose: 90 mg Documented by: Trazodone HCl (Desyrel) 50 mg PO QHS PRN PRN PRN Reason: insomnia Last Admin: 02/10/19 23:38 Dose: 50 mg Documented by: Medical Necessity - Tobacco Use Smoking Status: Former smoker Assessment/Plan All Active Problems (Last Updated 09/22/18 @ 15:09 by Trina Garcia) Unstable angina pectoris due to coronary arteriosclerosis (Acute) Chest pain (Acute) Unstable angina (Resolved) NSTEMI (non-ST elevated myocardial infarction) (Resolved 09/14/18)
--- NOTE | 2019-02-11 09:11 | CM.UR ---
Addendum entered by Vaishali Harp 02/11/19 09:11: RN CM Assessment Introduced role of RN CM to patient and his . Patient is alert and able to participate in RN CM Assessment. Care providers, pharmacy, and demographics verified. Presentation: Chest pain Admit Dx: Unstable angina Re-Admit: no Barriers/Issues: None PCP: Liza Specialists: Cardio--Rolando Preferred Pharmacy: [facility]. [facility]: [facility] and [facility]--no medication concerns--most medications have no copay. LNOK: [place] LW/HPOA: Lives with , one adult son and two children. Living Arrangements: [place] home. No access issues. ADL?s: Independent with all ADLs. Transportation: No issues. DME: Cane, DME HHC: None SNF: None Goal: Home with family. DC PLAN: Home, no discharge needs anticipated. Dianne Harp RN, CCM. Original Note: RN CM Assessment Introduced role of RN CM to patient. Patient is alert and able to participate in RN CM Assessment. Care providers, pharmacy, and demographics verified. Presentation: Admit Dx: Re-Admit: Barriers/Issues: PCP: Specialists: Preferred Pharmacy: Insurance: Rx Benefit: LNOK: LW/HPOA: Living Arrangements: ADL?s: Transportation: DME: None DME co: HHC: None SNF: None Goal: DC PLAN: Dianne Harp RN, CCM.
[2019-02-11] MEDS: Multivitamins,Ther W-Minerals Tablet 1 TABLET PO (09:15)
[2019-02-11] MEDS: Aspirin E.C. 81 MG Tablet PO (09:15)
[2019-02-11] MEDS: Pantoprazole Sodium 20 MG Tablet PO (09:16)
[2019-02-11] MEDS: TICAGRELOR 90 MG TABLET PO ×2 (09:16→22:24)
[2019-02-11] MEDS: DULoxetine Hcl 60 MG Capsule 120 MG PO (09:16)
[2019-02-11] MEDS: buPROPion (XL) 150 MG TABLET.XL PO (09:17)
--- NOTE | 2019-02-11 09:20 | CON.PCM_ITS ---
Problem List (1) Unstable angina pectoris due to coronary arteriosclerosis Status: Acute (2) Atherosclerosis of [place] coronary artery of [place] heart without angina pectoris Status: Chronic Comment: Successful PTCA/VENANCIO mid DIAG#1 with a 2.25 x 24 Promus Synergy (3) Chest pain Status: Acute Qualifiers: Chest pain type: unspecified Qualified Code(s): R07.9 - Chest pain, unspecified (4) Paroxysmal atrial fibrillation Status: Chronic (5) History of non-ST elevation myocardial infarction (NSTEMI) Status: Chronic (6) Stented coronary artery Status: Chronic Comment: Successful PTCA/VENANCIO mid DIAG#1 with a 2.25 x 24 Promus Synergy (Unable to wire mid LAD despite trying multiple wires. Lesion is clustered at a bifurcation with several septals and due to possibility of accessing false lumen and reaching iv contrast dye threshold, no further attempts were made to cannulate with a wire. MID LAD lesion looked identical to original cath; no perforation and pt is completely asymptomatic. Will proceed with medical management with asa/brilinta and xeralto for PAF and allow vesselt to heal. 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 use Diabetes mellitus complication status: with unspecified complications (9) HLD (hyperlipidemia) Status: Chronic Qualifiers: Hyperlipidemia type: pure hypercholesterolemia Qualified Code(s): E78.00 - Pure hypercholesterolemia, unspecified; E78.0 - Pure hypercholesterolemia Reason for Consult Date of Consultation: 02/11/19 Reason for Consultation: Unstable angina, chest pain, coronary artery disease, diabetes, tobacco abuse History of Present Illness: The patient is a 48 year old M with a history of tobacco abuse, diabetes, hypertension, hypercholesterolemia, coronary artery disease status post acute coronary syndrome on 09/14/2018. At that time he underwent left heart catheterization by me, and he was found to have significant two-vessel coronary disease of his diagonal and LAD. Patient underwent successful angioplasty and drug-eluting stenting to his diagonal receiving a 2.25 mm stent, but we were unable and unsuccessful negotiating a wire across his mid LAD stenosis due to the complexity of his plaque at that patient. Patient had CONCHITA-3 flow at the conclusion of his procedure and has been treated medically ever since. His ejection fraction at that time was found to be normal. Patient returned approximately 1 month later and on 10/15/2018 underwent treadmill echocardiogram which was negative for inducible ischemia. The patient had slight 2 out of 10 chest pain at peak exercise which quickly resolved. Since his stress test, he has had no exertional anginal symptoms, chest pain, or left shoulder and neck pain which was his anginal presentation initially in September 2018. The patient was actively cutting wood yesterday with a chainsaw, and went up to the [facility] for a meeting based upon his father's passing, and while he was sitting he developed left-sided shoulder pain, neck pain, and diaphoresis similar to his initial presentation in September 2018. Patient took a sublingual nitroglycerin which had minimal improvement of his pain. He then presented to [facility] ER after the meeting was over an EKG was performed which showed normal sinus rhythm, no acute changes. He was initially treated with additional nitroglycerin which resolved his pain. He was placed on a nitroglycerin drip, given subcu Lovenox, and has been compliant with his aspirin and Brilinta. In addition he is on Xarelto for paroxysmal atrial fibrillation and this was discontinued yesterday as well. He did take one Xarelto yesterday morning on 02/10/2019. His troponins have been negative x3, he is remained chest pain-free, telemetry showed normal sinus rhythm with rare PVC, and he is no longer on nitroglycerin drip. He is resting comfortably without distress. ] Past Medical History Allergies/Adverse Reactions: Allergies pregabalin [From Lyrica] Adverse Reaction (Verified 02/10/19 15:52) Itching Home Medications: Ambulatory Orders Medication Instructions Recorded Hydromorphone HCl [Dilaudid] 4 mg PO Q6H 02/17/16 Sertraline HCl [Zoloft] 200 mg PO DAILY 02/17/16 Tiagabine HCl [Gabitril] 4 mg PO DAILY 02/17/16 Multivitamin with Minerals 1 ea PO DAILY 09/14/18 [Multiple Vitamin] Nitroglycerin (INPATIENT USE) 0.4 mg SUBLINGUAL Q5M PRN #1 bottle 09/16/18 [Nitrostat] aripiprazole 2 mg tablet 2 mg PO DAILY tab 09/22/18 duloxetine 60 mg capsule,delayed 120 mg PO DAILY cap 09/22/18 release Krill/Om-3/Dha/Epa/Phospho/Ast 1 ea PO DAILY 10/06/18 [Megared [place]-3 Krill Oil Sfgl] glimepiride 2 mg tablet 2 mg PO DAILY #90 tab 11/21/18 metformin 500 mg tablet 1,000 mg PO BID #360 tab 11/21/18 omeprazole 20 mg capsule,delayed 20 mg PO DAILY #90 cap 11/21/18 release aspirin 81 mg tablet,delayed 81 mg PO DAILY #90 tab 01/30/19 release carvedilol 3.125 mg tablet 3.125 mg PO BID #60 tab 01/30/19 morphine ER 30 mg capsule,extended 30 mg PO BID 01/30/19 release 24 hr multiphase rivaroxaban 15 mg tablet 15 mg PO DAILY #30 tab 01/30/19 ticagrelor 90 mg tablet 90 mg PO BID #60 tab 01/30/19 Atorvastatin Calcium 80 mg PO DAILY 02/10/19 Bupropion HCl [Wellbutrin Xl] 150 mg PO DAILY 02/10/19 Lisinopril [Prinivil] 10 mg PO DAILY 02/10/19 Tiagabine HCl 8 mg PO QHS 02/10/19 Trazodone HCl 50 mg PO QHS PRN PRN 02/10/19 Past Medical History (Chronic Problems): Chronic Problems (Last Updated 09/22/18 @ 15:09 by Trina Garcia) Atherosclerosis of [place] coronary artery of [place] heart without angina pe ctoris (Chronic) Successful PTCA/VENANCIO mid DIAG#1 with a 2.25 x 24 Promus Synergy Paroxysmal atrial fibrillation (Chronic) History of non-ST elevation myocardial infarction (NSTEMI) (Chronic 09/14/18) Stented coronary artery (Chronic 09/14/18) Successful PTCA/VENANICO mid DIAG#1 with a 2.25 x 24 Promus Synergy (Unable to wire mid LAD despite trying multiple wires. Lesion is clustered at a bifurcation with several septals and due to possibility of accessing false lumen and reaching iv contrast dye threshold, no further attempts were made to cannulate with a wire. MID LAD lesion looked identical to original cath; no perforation and pt is completely asymptomatic. Will proceed with medical management with asa/brilinta and xeralto for PAF and allow vesselt to heal. if pt has recurrent CP or anterior ischemia, will consider another PCI attempt to mid LAD with new IV dye load) Anxiety and depression (Chronic) Tobacco use (Chronic) Benign essential HTN (Chronic) Chronic pain (Chronic) Depression (Chronic) DM2 (diabetes mellitus, type 2) (Chronic) HLD (hyperlipidemia) (Chronic) Surgical History: - - Lumbar back surgery, bilateral knee arthroscopic surgery with 3 left and one right surgery performed. Psychiatric History: Anxiety, Depression - *Family History Maternal Family History: Family History (Last Updated 11/21/18 @ 14:23 by Karin Boogie) Father Esophageal cancer Diabetes Myocardial infarction Mother Arthritis Diabetes History Items: - - Patient notes a maternal family history of HD. Paternal Family History: Family History (Last Updated 11/21/18 @ 14:23 by Karin Boogie) Father Esophageal cancer Diabetes Myocardial infarction Mother Arthritis Diabetes History Items: - - Father with a history of esophageal cancer. Lives: Spouse/ Significant Other Smoking Status: Former smoker Alcohol: Rare Drugs: None Review of Systems - Review of Systems General: Denies: Fever, Night Sweats, Fatigue Cardiovascular: Reports: Chest Discomfort, Chest Discomfort at Rest. Denies: Shortness of Breath, Orthopnea, PND, Peripheral Edema, Palpitations, Lightheadedness, Dizziness, Near Syncope, Syncope Respiratory: Denies: Cough, Sputum Production, Hemoptysis Gastrointestinal: Denies: Hematemesis, Hematochezia, Melena Genitourinary: Denies: Dysuria, Hematuria Skin: Denies: Rash Subjectve: Patient resting comfortably, no acute distress. Objective: Vital Signs Temp Pulse Resp BP Pulse Ox 98.1 F 98 11 L 120/70 97 02/11/19 04:00 02/11/19 06:00 02/11/19 06:00 02/11/19 06:00 02/11/19 07:30 Oxygen Flow Rate (L/min) 2 Oxygen Delivery Method Room Air Weight: 211 lb 6.773 oz Body Mass Index (BMI) 29.7 Intake and Output for Last 24 Hours 02/09/19 02/10/19 02/11/19 23:59 23:59 23:59 Intake Total 494.1 / 494.1 120 / 120 Output Total 500 / 500 Balance 494.1 / 494.1 -380 / -380 General: Awake, Alert, Oriented x 3 HEENT: PERRL, EOMI, Sclera Non Icteric Neck: Supple, Good ROM, No Lymph Node Enlargement Lungs: Clear to auscultation Cardiovascular: Regular Rhythm, Normal S1, Normal S2, No Murmurs, No Rubs, No Gallops Vascular: No Carotid Bruits, Normal Femoral Pulses, Normal Radial Pulses, Normal Dorsalis Pedal Pulse, Normal Posterior Tibial Pulses Abdomen: Bowel Sounds Present, Soft, Non Tender, No HSM, No Organomegaly Extremities: No Cyanosis, No Clubbing, No edema Neurological: No Focal Motor or Sensory Deficit 02/10/19 15:50: WBC 11.7 H, RBC 5.61, Hgb 16.7 H, Hct 50.1, MCV 89.3, MCH 29.8, MCHC 33.3, Plt Count 181, MPV 11.1, Immature Gran % (Auto) 0.500, Neut % (Auto) 62.5, Lymph % (Auto) 24.1, [place] % (Auto) 9.1, Eos % (Auto) 3.0, Baso % (Auto) 0.8, Absolute Neuts (auto) 7.3, Nucleated RBC % 0 02/10/19 15:50: Sodium 138, Potassium 3.7, Chloride 105, Carbon Dioxide 28.0, Anion Gap 5, BUN 13, Creatinine 1.14, Est GFR (MDRD) Af Amer 88, Est GFR (MDRD) Non-Af 73, BUN/Creatinine Ratio 11.4, Glucose 167 H, Calcium 9.4, Troponin I < 0.015 02/10/19 20:45: Troponin I < 0.015 02/10/19 23:40: Troponin I < 0.015 02/11/19 02:10: Sodium 140, Potassium 3.6, Chloride 108 H, Carbon Dioxide 28.0, Anion Gap 4 L, BUN 12, Creatinine 0.93, Est GFR (MDRD) Af Amer 112, Est GFR (MDRD) Non-Af 92, BUN/Creatinine Ratio 12.9, Glucose 130 H, Calcium 8.5 02/11/19 02:10: WBC 7.7, RBC 4.91, Hgb 14.6, Hct 44.1, MCV 89.8, MCH 29.7, MCHC 33.1, Plt Count 144 L, MPV 10.6, Immature Gran % (Auto) 0.300, Neut % (Auto) 49.7, Lymph % (Auto) 35.4, [place] % (Auto) 10.6 H, Eos % (Auto) 3.5, Baso % (Auto) 0.5, Absolute Neuts (auto) 3.8, Nucleated RBC % 0 02/11/19 02:10: Troponin I < 0.015 Rhythm: EKG: ECHO: Stress Test: Cardiac Cath: PCI: CT Surgery: Holter monitor: EPS: PPM: CXR: Chest CT Scan: Assessment/Plan 1. Coronary artery disease: The patient presents with atypical, nonexertional left-sided shoulder and neck pain superimposed upon known torn rotator cuff of his left arm, as well as cervical neurological issues which have been recommended to undergo surgery in the past. However, the patient has known coronary artery disease with incomplete revascularization in September 2018. Subsequent stress test in October 2018 showed no overt anterior ischemia. His initial presentation in September 2018 was left shoulder pain, neck pain and diaphoresis, similar to what happened yesterday. His troponins have been negative so I do not believe he requires urgent catheterization as of today. I would however recommend the patient's Xarelto be discontinued and allowed to get out of his system, and will plan for left heart catheterization on Wednesday. Hopefully his mid LAD stenosis has healed to the point where we can negotiate a wire down with less difficulty, and hopefully correct his remaining coronary disease should this be indicated. His most recent stress test suggest that he has adequate anterior blood flow. Recommend continuing aspirin, Brilinta. 2. Tobacco cessation: I strongly recommend the patient discontinue all tobacco products. 3. Paroxysmal atrial fibrillation: The patient has had no palpitations either during his most recent acute coronary syndrome or in the past several months. Again we will hold Xarelto in anticipation for left her catheterization on Wednesday. 4. Hyperlipidemia: Recommend obtaining a fasting lipid profile. Continue Lipitor. 5. Patient may be transferred to stepdown unit. Thank you very much for the opportunity to participate in the cardiac care of your patient. Consultation time took place between 8:300 and 9 AM. Code Visit Inpatient E&M: 41889 Init Hosp L2
[2019-02-11] MEDS: Insulin Lispro 100 UNIT/ML INSULN.PEN SC ×3 (09:27→22:24)
[2019-02-11 09:36] LABS: Bedside Glucose 212 mg/dL (70-110)
[2019-02-11 11:21] LABS: Cholesterol 101 mg/dL (200); High Density Lipoprotein 29 mg/dL; Triglycerides 188 mg/dL; Very Low Density Lipoprotein 38 mg/dL (5-40)
--- NOTE | 2019-02-11 12:31 | PN_ITS ---
<Donald Currie - Last Filed: 02/11/19 12:31> Patient Problems: Active and Suspected Problems (Last Updated 09/22/18 @ 15:09 by Trina Garcia) Unstable angina pectoris due to coronary arteriosclerosis (Acute) Subjective: Pt resting comfortably in bed. No further symptoms. He was previously having symptoms of severe left neck and shoulder pain, SOB, and diaphoresis. He states it was similar to must more severe than when he had his NSTEMI. He currently denies any symptoms. He no longer smokes but continues to chew tobacco. He states he is agreeable to cath but that if he were to need open heart surgery he would refuse. - Physical Exam General: Alert, Oriented x3, Cooperative HEENT: Atraumatic, PERRLA, EOMI, Normocephalic Neck: Supple, No JVD, Negative Carotid Bruits Lungs: Clear to auscultation, Normal air movement Cardiovascular: Regular rate, No murmurs Abdomen: Bowel Sounds Present, Soft, Non Tender Extremities: No edema, Capillary Refill Less than 3 Seconds Skin: No rashes, No breakdown Musculoskeletal: No Tenderness to Palpation of Joints or Extremities Neurological: Cranial nerves II-XII grossly intact Psych/Mental Status: Normal Affect, Appropriate Vital Signs Temp Pulse Resp BP Pulse Ox 98.1 F 98 11 L 120/70 97 02/11/19 04:00 02/11/19 06:00 02/11/19 06:00 02/11/19 06:00 02/11/19 07:30 Oxygen Flow Rate (L/min) 2 Oxygen Delivery Method Room Air Weight: 211 lb 6.773 oz Body Mass Index (BMI) 29.7 Intake and Output for Last 24 Hours 02/09/19 02/10/19 02/11/19 23:59 23:59 23:59 Intake Total 494.1 / 494.1 120 / 120 Output Total 500 / 500 Balance 494.1 / 494.1 -380 / -380 Laboratory Tests Past 24 Hrs 02/10/19 02/10/19 02/10/19 15:50 15:50 20:45 WBC 11.7 H RBC 5.61 Hgb 16.7 H Hct 50.1 MCV 89.3 MCH 29.8 MCHC 33.3 RDW Std Deviation 40.3 RDW Coeff of [place] 12.2 Plt Count 181 MPV 11.1 Immature Gran % (Auto) 0.500 Neut % (Auto) 62.5 Lymph % (Auto) 24.1 [place] % (Auto) 9.1 Eos % (Auto) 3.0 Baso % (Auto) 0.8 Absolute Neuts (auto) 7.3 Absolute Lymphs (auto) 2.81 Nucleated RBC % 0 Sodium 138 Potassium 3.7 Chloride 105 Carbon Dioxide 28.0 Anion Gap 5 BUN 13 Creatinine 1.14 Estim Creat Clear Calc 82.71 Est GFR (MDRD) Af Amer 88 Est GFR (MDRD) Non-Af 73 BUN/Creatinine Ratio 11.4 Glucose 167 H Calcium 9.4 Troponin I < 0.015 < 0.015 Triglycerides Cholesterol LDL Cholesterol VLDL Cholesterol HDL Cholesterol 02/10/19 02/11/19 02/11/19 23:40 02:10 02:10 WBC 7.7 RBC 4.91 Hgb 14.6 Hct 44.1 MCV 89.8 MCH 29.7 MCHC 33.1 RDW Std Deviation 40.1 RDW Coeff of [place] 12.2 Plt Count 144 L MPV 10.6 Immature Gran % (Auto) 0.300 Neut % (Auto) 49.7 Lymph % (Auto) 35.4 [place] % (Auto) 10.6 H Eos % (Auto) 3.5 Baso % (Auto) 0.5 Absolute Neuts (auto) 3.8 Absolute Lymphs (auto) 2.74 Nucleated RBC % 0 Sodium 140 Potassium 3.6 Chloride 108 H Carbon Dioxide 28.0 Anion Gap 4 L BUN 12 Creatinine 0.93 Estim Creat Clear Calc 101.39 Est GFR (MDRD) Af Amer 112 Est GFR (MDRD) Non-Af 92 BUN/Creatinine Ratio 12.9 Glucose 130 H Calcium 8.5 Troponin I < 0.015 Triglycerides Cholesterol LDL Cholesterol VLDL Cholesterol HDL Cholesterol 02/11/19 02/11/19 02:10 02:10 WBC RBC Hgb Hct MCV MCH MCHC RDW Std Deviation RDW Coeff of Sarahi Plt Count MPV Immature Gran % (Auto) Neut % (Auto) Lymph % (Auto) [place] % (Auto) Eos % (Auto) Baso % (Auto) Absolute Neuts (auto) Absolute Lymphs (auto) Nucleated RBC % Sodium Potassium Chloride Carbon Dioxide Anion Gap BUN Creatinine Estim Creat Clear Calc Est GFR (MDRD) Af Amer Est GFR (MDRD) Non-Af BUN/Creatinine Ratio Glucose Calcium Troponin I < 0.015 Triglycerides 188 Cholesterol 101 LDL Cholesterol 34 VLDL Cholesterol 38 HDL Cholesterol 29 L POC Glucose 02/11/19 02/10/19 09:07 22:10 POC Glucose 212 H 149 H Medical Necessity - Tobacco Use Smoking Status: Former smoker Assessment/Plan All Active Problems (Last Updated 09/22/18 @ 15:09 by Trina Garcia) Unstable angina pectoris due to coronary arteriosclerosis (Acute) Chest pain (Acute) Unstable angina (Resolved) NSTEMI (non-ST elevated myocardial infarction) (Resolved 09/14/18) 1. Unstable angina, hx CAD prior stent this year - known to have non stentable LAD dz. Chest pain resolved. Cath on Wednesday. Continue coreg, aspirin, Brilinta, statin, Nitro. Dr. Marshall following. 2. Hx PAfib - currently SR, controlled. Coreg. Xarelto held. 3. Anx/Depression - abilify, wellbutrin, cymbalta, zoloft, trazodone. Unclear why he is on gabitril. Unclear why he is on both cymbalta and zoloft. 4. DMt2 - SSI 5. Tobacco abuse - stopped smoking but still using chewing tobacco. Encouraged cessation. Patch if desired. 6. 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 DVT ppx: SCDs This patient was seen by Donald Currie PA-C under the supervision of Dr. Gee. <Jannet Gee - Last Filed: 02/11/19 13:30> - Physical Exam Vital Signs Temp Pulse Resp BP Pulse Ox 98.1 F 98 11 L 120/70 97 02/11/19 04:00 02/11/19 06:00 02/11/19 06:00 02/11/19 06:00 02/11/19 07:30 Oxygen Flow Rate (L/min) 2 Oxygen Delivery Method Room Air Weight: 95.9 kg Body Mass Index (BMI) 29.7 Intake and Output for Last 24 Hours 02/09/19 02/10/19 02/11/19 23:59 23:59 23:59 Intake Total 494.1 / 494.1 120 / 120 Output Total 500 / 500 Balance 494.1 / 494.1 -380 / -380 Laboratory Tests Past 24 Hrs 02/10/19 02/10/19 02/10/19 15:50 15:50 20:45 WBC 11.7 H RBC 5.61 Hgb 16.7 H Hct 50.1 MCV 89.3 MCH 29.8 MCHC 33.3 RDW Std Deviation 40.3 RDW Coeff of [place] 12.2 Plt Count 181 MPV 11.1 Immature Gran % (Auto) 0.500 Neut % (Auto) 62.5 Lymph % (Auto) 24.1 [place] % (Auto) 9.1 Eos % (Auto) 3.0 Baso % (Auto) 0.8 Absolute Neuts (auto) 7.3 Absolute Lymphs (auto) 2.81 Nucleated RBC % 0 Sodium 138 Potassium 3.7 Chloride 105 Carbon Dioxide 28.0 Anion Gap 5 BUN 13 Creatinine 1.14 Estim Creat Clear Calc 82.71 Est GFR (MDRD) Af Amer 88 Est GFR (MDRD) Non-Af 73 BUN/Creatinine Ratio 11.4 Glucose 167 H Calcium 9.4 Troponin I < 0.015 < 0.015 Triglycerides Cholesterol LDL Cholesterol VLDL Cholesterol HDL Cholesterol 02/10/19 02/11/19 02/11/19 23:40 02:10 02:10 WBC 7.7 RBC 4.91 Hgb 14.6 Hct 44.1 MCV 89.8 MCH 29.7 MCHC 33.1 RDW Std Deviation 40.1 RDW Coeff of [place] 12.2 Plt Count 144 L MPV 10.6 Immature Gran % (Auto) 0.300 Neut % (Auto) 49.7 Lymph % (Auto) 35.4 [place] % (Auto) 10.6 H Eos % (Auto) 3.5 Baso % (Auto) 0.5 Absolute Neuts (auto) 3.8 Absolute Lymphs (auto) 2.74 Nucleated RBC % 0 Sodium 140 Potassium 3.6 Chloride 108 H Carbon Dioxide 28.0 Anion Gap 4 L BUN 12 Creatinine 0.93 Estim Creat Clear Calc 101.39 Est GFR (MDRD) Af Amer 112 Est GFR (MDRD) Non-Af 92 BUN/Creatinine Ratio 12.9 Glucose 130 H Calcium 8.5 Troponin I < 0.015 Triglycerides Cholesterol LDL Cholesterol VLDL Cholesterol HDL Cholesterol 02/11/19 02/11/19 02:10 02:10 WBC RBC Hgb Hct MCV MCH MCHC RDW Std Deviation RDW Coeff of Sarahi Plt Count MPV Immature Gran % (Auto) Neut % (Auto) Lymph % (Auto) [place] % (Auto) Eos % (Auto) Baso % (Auto) Absolute Neuts (auto) Absolute Lymphs (auto) Nucleated RBC % Sodium Potassium Chloride Carbon Dioxide Anion Gap BUN Creatinine Estim Creat Clear Calc Est GFR (MDRD) Af Amer Est GFR (MDRD) Non-Af BUN/Creatinine Ratio Glucose Calcium Troponin I < 0.015 Triglycerides 188 Cholesterol 101 LDL Cholesterol 34 VLDL Cholesterol 38 HDL Cholesterol 29 L POC Glucose 02/11/19 02/10/19 09:07 22:10 POC Glucose 212 H 149 H Assessment/Plan This patient was seen in conjunction with DENISE Gallagher. I have independently interviewed and examined the patient and reviewed pertinent historical, laboratory, and other data. Please refer to DENISE Gallagher note for his patient's presentation, findings, and recommendations. I have reviewed and his note and concur with his documentation Patient was seen and examined. Denies of chest pain, dizziness, palpitations. Physical Exam: Gen: Comfortable, not pale, not jaundiced CVS:HS I +II, regular, no murmurs RESP: CTA GI: BS present and normal, soft, nontender, no palpable organs EXT:No edema ASSESSMENT: 1. Unstable angina 2. CAD s/p stent 3. Paroxysmal atrial fibrillation 4. Anxiety/depression 5. Type 2 DM 6. Nicotine dependence 7. Chronic back pain Plan: Continue on aspirin, statin, carvedilol, Brilinta Continue home meds Code Visit Inpatient E&M: 51827 Subs Hosp L2
[2019-02-11 13:01] LABS: Bedside Glucose 261 mg/dL (70-110)
[2019-02-11] MEDS: Carvedilol 3.125 MG TABLET PO ×2 (13:15→22:24)
[2019-02-11] MEDS: Lidocaine 5% Patch 1 PATCH TOPICAL (14:55)
--- NOTE | 2019-02-11 16:51 | CM.UR ---
Heart Cath planned for Wednesday. In-network hospitals according to his [employer] Medicare (not limited to): [facility] If any questions contact Case mgmt.
[2019-02-11 16:55] LABS: Bedside Glucose 81 mg/dL (70-110)
[2019-02-11] MEDS: ARIPiprazole 2 MG Tablet PO (22:23)
[2019-02-11] MEDS: Atorvastatin Calcium 80 MG Tablet PO (22:25)
[2019-02-11] MEDS: Sertraline 100 MG Tablet 200 MG PO (22:26)
[2019-02-11 23:56] LABS: Bedside Glucose 172 mg/dL (70-110)
[2019-02-12] VITALS (10 sets, daily range): BP systolic 132–148; BP diastolic 78–82; PULSE 66–94; RESP 13–16; TEMP 36.6–36.8; O2SAT 94–99
[2019-02-12] MEDS: traZODone 50 MG Tablet PO (00:01)
[2019-02-12] MEDS: HYDROmorphone 2 MG TABLET 4 MG PO ×4 (00:02→17:00)
[2019-02-12] MEDS: hydrOXYzine PAM 25 MG Capsule PO (03:05)
--- NOTE | 2019-02-12 05:42 | NURSING ---
The patient disclosed to this RN about the stress/anxiety he is facing. He states he just lost his father. Pt expresses stress about his health conditions. Pt states if he would have known coming to the hospital would have developed into what it has, he may not have come to the hospital. Pt apologized to this RN for being upset earlier in the shift. This RN actively listened to the patient and offered support. Pt noted by this RN to have chewing tobacco in his lip. This RN spoke with patient and explained that he isn't able to chew while in the hospital. This RN states she will try to get a Nicotine patch ordered if pt desires. Pt declined at this time.
[2019-02-12] MEDS: Insulin Lispro 100 UNIT/ML INSULN.PEN SC ×3 (06:37→21:44)
[2019-02-12 07:20] LABS: Bedside Glucose 218 mg/dL (70-110)
--- NOTE | 2019-02-12 09:08 | PN.CARD_ITS ---
Subjectve: Patient doing well this morning. Telemetry negative. Patient continued to have episodes of left shoulder pain and neck pain last evening. No chest pain noted. Objective: Vital Signs Temp Pulse Resp BP Pulse Ox 97.9 F 66 13 137/78 H 94 02/12/19 04:26 02/12/19 06:48 02/12/19 04:26 02/12/19 04:26 02/12/19 07:45 Oxygen Flow Rate (L/min) 2 Oxygen Delivery Method Room Air Weight: 214 lb 8.156 oz Body Mass Index (BMI) 29.7 Intake and Output for Last 24 Hours 02/10/19 02/11/19 02/12/19 23:59 23:59 23:59 Intake Total 494.1 / 494.1 770 / 1560 1190 / 1190 Output Total 700 / 1175 1050 / 1050 Balance 494.1 / 494.1 70 / 385 140 / 140 General: Awake, Alert, Oriented x 3 HEENT: PERRL, EOMI, Sclera Non Icteric Neck: Supple, Good ROM, No Lymph Node Enlargement Lungs: Clear to auscultation Cardiovascular: Regular Rhythm, Normal S1, Normal S2, No Murmurs, No Rubs, No Gallops Vascular: No Carotid Bruits, Normal Femoral Pulses, Normal Radial Pulses, Normal Dorsalis Pedal Pulse, Normal Posterior Tibial Pulses Abdomen: Bowel Sounds Present, Soft, Non Tender, No HSM, No Organomegaly Extremities: No Cyanosis, No Clubbing, No edema Neurological: No Focal Motor or Sensory Deficit 02/11/19 02:10: Triglycerides 188, Cholesterol 101, LDL Cholesterol 34, VLDL Cholesterol 38, HDL Cholesterol 29 L Rhythm: EKG: ECHO: Stress Test: Cardiac Cath: PCI: CT Surgery: Holter monitor: EPS: PPM: CXR: Chest CT Scan: Medical Necessity - Tobacco Use Smoking Status: Former smoker Assessment/Plan 1. Coronary artery disease: The patient presents with atypical, nonexertional left-sided shoulder and neck pain superimposed upon known torn rotator cuff of his left arm which is been known for several years, as well as cervical neurological issues which have been recommended to undergo surgery in the past. However, the patient has known coronary artery disease with incomplete r evascularization in September 2018. Subsequent stress test in October 2018 showed no overt anterior ischemia. His initial presentation in September 2018 was left shoulder pain, neck pain and diaphoresis, similar to what happened yesterday. His troponins have been negative so I do not believe he requires urgent catheterization as of today. I would however recommend the patient's Xarelto be discontinued and allowed to get out of his system, and will plan for left heart catheterization on Wednesday. Hopefully his mid LAD stenosis has healed to the point where we can negotiate a wire down with less difficulty, and hopefully correct his remaining coronary disease should this be indicated. His most recent stress test suggest that he has adequate anterior blood flow. It appears his presenting symptoms are more musculoskeletal with respect to his torn rotator cuff as well as his previously known neck pain. Recommend continuing aspirin, Brilinta. 2. Tobacco cessation: I strongly recommend the patient discontinue all tobacco products. 3. Paroxysmal atrial fibrillation: The patient has had no palpitations either during his most recent acute coronary syndrome or in the past several months. Again we will hold Xarelto in anticipation for left her catheterization on Wednesday. 4. Hyperlipidemia: Recommend obtaining a fasting lipid profile. Continue Lipitor. 5. Patient may be transferred to stepdown unit. Left heart catheterization to follow tomorrow morning. Code Visit Inpatient E&M: 26945 Subs Hosp L2
[2019-02-12] MEDS: Pantoprazole Sodium 20 MG Tablet PO (09:41)
[2019-02-12] MEDS: DULoxetine Hcl 60 MG Capsule 120 MG PO (09:42)
[2019-02-12] MEDS: Aspirin E.C. 81 MG Tablet PO (09:42)
[2019-02-12] MEDS: buPROPion (XL) 150 MG TABLET.XL PO (09:42)
[2019-02-12] MEDS: TICAGRELOR 90 MG TABLET PO ×2 (09:42→21:39)
[2019-02-12] MEDS: Lidocaine 5% Patch 1 PATCH TOPICAL ×2 (09:43)
[2019-02-12] MEDS: Multivitamins,Ther W-Minerals Tablet 1 TABLET PO (09:43)
[2019-02-12] MEDS: Carvedilol 3.125 MG TABLET PO ×2 (09:43→21:39)
[2019-02-12 11:21] LABS: Bedside Glucose 135 mg/dL (70-110)
--- NOTE | 2019-02-12 13:49 | PCM.PROGNOTE ---
<Donald Currie - Last Filed: 02/12/19 13:49> Patient Problems: Active and Suspected Problems (Last Updated 09/22/18 @ 15:09 by Trina Garcia) Unstable angina pectoris due to coronary arteriosclerosis (Acute) Subjective: No SOB, no CP, no dizziness/LH, no palp, no n/v. Agreeable to cath tomorrow. He has neck pain / shoulder pain from rotator cuff tear improved with lidocaine patches. He does not follow an orthopod. - Physical Exam General: Alert, Oriented x3, Cooperative HEENT: Atraumatic, PERRLA, EOMI, Normocephalic Neck: Supple, No JVD, Negative Carotid Bruits Lungs: Clear to auscultation, Normal air movement Cardiovascular: Regular rate, No murmurs Abdomen: Bowel Sounds Present, Soft, Non Tender Extremities: No edema, Capillary Refill Less than 3 Seconds Skin: No rashes, No breakdown Musculoskeletal: No Tenderness to Palpation of Joints or Extremities Neurological: Cranial nerves II-XII grossly intact Psych/Mental Status: Normal Affect, Appropriate, Alert and oriented to time, place, person, mood and affect Vital Signs Temp Pulse Resp BP Pulse Ox 98.1 F 78 16 134/80 H 98 02/12/19 09:37 02/12/19 09:37 02/12/19 09:37 02/12/19 09:37 02/12/19 09:37 Oxygen Flow Rate (L/min) 2 Oxygen Delivery Method Room Air Weight: 214 lb 8.156 oz Body Mass Index (BMI) 29.7 Intake and Output for Last 24 Hours 02/10/19 02/11/19 02/12/19 23:59 23:59 23:59 Intake Total 494.1 / 494.1 770 / 1560 1790 / 1790 Output Total 700 / 1175 1550 / 1550 Balance 494.1 / 494.1 70 / 385 240 / 240 POC Glucose 02/12/19 02/12/19 02/11/19 11:12 06:33 22:22 POC Glucose 135 H 218 H 172 H 02/11/19 16:39 POC Glucose 81 Medical Necessity - Tobacco Use Smoking Status: Former smoker Assessment/Plan All Active Problems (Last Updated 09/22/18 @ 15:09 by Trina Garcia) Unstable angina pectoris due to coronary arteriosclerosis (Acute) Chest pain (Acute) Unstable angina (Resolved) NSTEMI (non-ST elevated myocardial infarction) (Resolved 09/14/18) 1. Unstable angina, hx CAD prior stent this year - known to have non stentable LAD dz. Still chest pain free. Cath on Wednesday. Continue coreg, aspirin, Brilinta, statin, Nitro. Dr. Marshall following. 2. Hx PAfib - currently SR, controlled. Coreg. Xarelto held. 3. Anx/Depression - abilify, wellbutrin, cymbalta, zoloft, trazodone. Unclear why he is on both cymbalta and zoloft. 4. DMt2 - SSI 5. Tobacco abuse - stopped smoking but still using chewing tobacco. Encouraged cessation. Patch if desired. 6. 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 7. Left rotator cuff tear - needs follow up with ortho. 8. Hx peripheral neuropathy - states his pain management doc is treating this with gabitril. DVT ppx: SCDs DC planning: cath tomorrow. This patient was seen by Donald Currie PA-C under the supervision of Dr. Gee. <Jannet Gee - Last Filed: 02/12/19 15:05> - Physical Exam Vital Signs Temp Pulse Resp BP Pulse Ox 98.1 F 78 16 134/80 H 98 02/12/19 09:37 02/12/19 09:37 02/12/19 09:37 02/12/19 09:37 02/12/19 09:37 Oxygen Flow Rate (L/min) 2 Oxygen Delivery Method Room Air Weight: 97.3 kg Body Mass Index (BMI) 29.7 Intake and Output for Last 24 Hours 02/10/19 02/11/19 02/12/19 23:59 23:59 23:59 Intake Total 494.1 / 494.1 770 / 1560 1790 / 1790 Output Total 700 / 1175 1550 / 1550 Balance 494.1 / 494.1 70 / 385 240 / 240 POC Glucose 02/12/19 02/12/19 02/11/19 11:12 06:33 22:22 POC Glucose 135 H 218 H 172 H 02/11/19 16:39 POC Glucose 81 Assessment/Plan This patient was seen in conjunction with DENISE Gallagher. I have independently interviewed and examined the patient and reviewed pertinent historical, laboratory, and other data. Please refer to DENISE Gallagher note for his patient's presentation, findings, and recommendations. I have reviewed and his note and concur with his documentation Patient was seen and examined. He complains of pain in the left shoulder and posterior neck pain. Denies of chest pain, dizziness, palpitations. Physical Exam: Gen: Comfortable, not pale, not jaundiced CVS:HS I +II, regular, no murmurs RESP: CTA GI: BS present and normal, soft, nontender, no palpable organs EXT:No edema ASSESSMENT: 1. Unstable angina 2. CAD s/p stent 3. Paroxysmal atrial fibrillation 4. Anxiety/depression 5. Type 2 DM 6. Nicotine dependence 7. Chronic back pain Plan: Continue on aspirin, statin, carvedilol, Brilinta Continue home meds Code Visit Inpatient E&M: 70132 Subs Hosp L2
[2019-02-12 16:31] LABS: Bedside Glucose 239 mg/dL (70-110)
[2019-02-12] MEDS: ALPRAZolam 0.5 MG Tablet PO (21:38)
[2019-02-12] MEDS: ARIPiprazole 2 MG Tablet PO (21:38)
[2019-02-12] MEDS: Atorvastatin Calcium 80 MG Tablet PO (21:39)
[2019-02-12] MEDS: Sertraline 100 MG Tablet 200 MG PO (21:40)
--- NOTE | 2019-02-12 23:23 | NURSING ---
Pt watch heart cath video on hospital iPad.
[2019-02-13] VITALS (32 sets, daily range): BP systolic 122–158; BP diastolic 69–95; PULSE 6–139; RESP 9–19; TEMP 36.7–37.4; O2SAT 16–100; BMI 31.1
--- NOTE | 2019-02-13 00:10 | NURSING ---
Computer background completed pt cardiac/calorie controlled diet d/t an NPO order for midnight. Per Dr. Marshall's orders, this RN entered an order for clear liquids to start at 04:00 and an order for NPO to start at 08:00 in preparation for the patient's heart cath. This RN re-entered the cardiac/calorie controlled diet that was previously active before it was completed by the computer system.
[2019-02-13] MEDS: HYDROmorphone 2 MG TABLET 4 MG PO ×4 (00:19→23:21)
[2019-02-13] MEDS: traZODone 50 MG Tablet PO (00:19)
[2019-02-13 00:31] LABS: Bedside Glucose 193 mg/dL (70-110)
[2019-02-13 03:57] LABS: Absolute Lymphocyte Count 2.34 X10^3/uL (0.83-4.51); Absolute Neutrophil Count 3.9 X10^3/uL (2.0-7.7); Basophil# 0.05 X10^3/uL; Basophil% 0.7 % (0-1); Eosinophil# 0.25 X10^3/uL; Eosinophils% 3.5 % (0-5); Hematocrit 43.7 % (40-54); Hemoglobin 14.5 g/dL (13.0-16.5); Lymphocyte # 2.34 X10^3/ul (4.0); Lymphocyte % 32.4 % (19-41); Mean Corp Hgb Conc 33.2 g/dL (32-36); Mean Corpuscular Hgb 29.8 pg (27.0-32.0); Mean Corpuscular Volume 89.7 fL (80-94); Mean Platelet Vol. 10.7 fl (6.2-12.0); Monocyte# 0.65 X10^3/uL; NRBC Flagged by Analyzer 0 % (0-5); Platelet Count 141 K/mm3 (150-450); RBC Distribution Width CV 11.8 % (11.6-14.6); RBC Distribution Width SD 38.5 fl (35.1-43.9); Red Blood Count 4.87 M/mm3 (4.6-6.2); White Blood Count 7.2 K/mm3 (4.4-11.0)
[2019-02-13 04:05] LABS: Partial Thromboplast Time 29.1 Seconds (24.1-36.2); Prothrombin Time (Protime)PT. 12.9 SECONDS (11.7-14.9)
[2019-02-13 04:13] LABS: Anion Gap 8 (5-15); BUN 7 mg/dL (7-18); BUN/Creat Ratio 8.5 RATIO (10-20); Calcium,Total 8.4 mg/dL (8.5-10.1); Chloride 107 mmol/L (98-107); Creatinine, Serum 0.83 mg/dL (0.70-1.30); EST Glomerular Filtration Rate 106 mL/min (>60); Est Glom Filt Rate - Afr Amer 128 mL/min (>60); Glucose 238 mg/dL (74-106); Potassium 3.7 mmol/L (3.5-5.1); Sodium Level 142 mmol/L (136-145)
[2019-02-13] MEDS: Carvedilol 3.125 MG TABLET PO ×2 (05:58→21:25)
[2019-02-13] MEDS: Aspirin E.C. 81 MG Tablet PO (05:58)
[2019-02-13] MEDS: TICAGRELOR 90 MG TABLET PO ×2 (05:58→21:25)
[2019-02-13] MEDS: 0.9% NaCl Peripheral Flush Adult/Peds IV (06:05)
[2019-02-13] MEDS: DiphenhydrAMINE 25 MG Capsule 50 MG PO (09:20)
[2019-02-13 10:01] LABS: Hemoglobin A1c 7.8 % (4.2-6.3)
--- NOTE | 2019-02-13 10:11 | CASEMGMT ---
According to the [facility] website, the following are in-network tertiary facilities: [facility], [facility], and . Marielos STRATTON CM
--- NOTE | 2019-02-13 10:49 | EKG12_ITS ---
Test Reason : Blood Pressure : / mmHG Vent. Rate : 070 BPM Atrial Rate : 070 BPM P-R Int : 154 ms QRS Dur : 088 ms QT Int : 414 ms P-R-T Axes : 049 028 019 degrees QTc Int : 447 ms Normal sinus rhythm Nonspecific T wave abnormality Abnormal ECG Confirmed by YULI LEGGETT, DORA ([id number]), publishing editor ITALIA JORDAN ([id number]) on 02/14/2019 12:58:25 PM Referred By: Mayela Srinivasan Confirmed By:DORA ROLDAN MD
--- NOTE | 2019-02-13 10:57 | CL.I_ITS ---
Patient Name: REJI CORTES Study Date: 02/13/2019 Performing: Gerber Marshall MD Ht: 70.07 inches 178 cm : 1970 Wt: 218.26 lbs 99 kg Age: 48 Gender: male BSA: 2.17 PROCEDURE(S) PERFORMED NA55-WIJ/COR/LV [id number] W OR WO PTCA, SINGLE CORONARY ARTERY CLINICAL PROFILE AND CO-MORBIDITIES Indications: ACS > 24 hrs, Stable Known CAD Heart Failure: None Stress/Imaging Date: 10/15/2018 Stress Echocardiogram: Negative CAD Presentations: Unstable angina. Other: Atypical non exertional left shoulder and neck pain, b ut had similar presentation prior to previous DIAG stenting in 09/2108. Pt has know left rotator cuff tear and known cervical pain for years. Comorbidities/Risk Factors: Hypertension Dyslipidemia Prior PCI Diabetes Mellitus: Diabetes Therapy: Oral CONCLUSIONS Normal LV size, wall motion,and systolic function Normal Left Ventricular systolic function LVEF: by LV gram 65 % Normal Left Ventricular End Diastolic Pressure Single vessel CAD of the mid LCX Non obstructive coronary arteries of mid LAD and mid RCA Successful PTCA/VENANCIO mid LCX with a 3.5 x 24 Promus Synergy, post dilated in proximal 3/4 with a 3.75 x 8 NC Balloon; 75%-->0%. Lesion treated given recurrent anginal symptoms in the absence of abnormal stress testing. Successful Mynx Control closure of RFA. RECOMMENDATIONS Referred for immediate PCI Highly recommend quitting all tobacco products Follow up with primary it sales consultant Risk factor modification ASA Indefinitley Plavix for at least 12 months Routine post interventional care Refer for Outpatient Cardiac Rehab Manual sheath removal per protocol Follow up with Dr. Marshall Will continue to treat previously noted linear mid LAD dissection with medical management as it appea rs to be healing well and had no evidence of anterior ischemia by stress tesing in 10/2018. I would r ecommend 4 to 6 months of additional healing prior to any attempts at PCI of mid LAD. Would not cover DIAG with stent given very large proximal LAD. I believe source of pt's shoulder and neck pain are from musculoskeletal disease and pt would benefit from surgical correction of same. DESCRIPTION OF PROCEDURE The patient arrived to the procedure lab. The risks and benefits of the procedure as well as a full d escription of our services here and lack of surgical backup were fully explained to the patient and/o r their significant other prior to the catheterization. The Timeout was completed, verifying the keron ect patient and procedure. The patient's procedural site was prepped and draped in the usual fashion. Local anesthetic was given subcutaneously to right groin region with Lidocaine 2%. Using a modified Seldinger technique, arterial access was obtained via the right femoral artery, a 4Fr sheath was inse rted. Left Coronary Artery selective angiography was performed in multiple views using a 4 Fr. JL5 c atheter. Right Coronary Artery selective angiography was then performed in multiple views using a 4 F r. 3DRC catheter. Left Ventriculography was performed in GRIMES projection using a 4 Fr. Pigtail cathete r. LV to AO pullback pressures were then recordedThe images were reviewed and options discussed. A decision was then made to proceed with an Intervention, IVUS or other adjunct procedure. Arterial sheath was exchanged for a 6 Fr Sheath. EBU 3.75 Guide catheter was inserted and engaged into the LCA. BMW Guide wire was advanced to the Circumflex. 3.5x24 Synergy Drug Eluting stent was a dvanced across the lesion in the circumflex, mid. Angiogram performed post stent deployment. 3.75x8 N C Emerge Balloon catheter was inserted post stent. PTCA balloon inflated at 14 atms for 8 secs. PTCA balloon inflated at 14 atms for 6 secs. PTCA balloon inflated at 15 atms for 9 secs. Angiogram perfor med post balloon dilatation. The arterial sheath was pulled and a Mynx closure device was deployed for hemostasis CORONARY ANGIOGRAPHY DOMINANCE: Right Dominant LEFT HEART ASSESSMENT Left Ventricular Ejection Fraction: by LV Gram 65 % Normal Left Ventricular systolic function Normal LV wall motion LEFT MAIN: Angiographically normal LEFT ANTERIOR DESCENDING ARTERY: MID LAD: 50 % Stenosis with much improved healing of previously seen linear dissection. DIAGONAL 1: Mid - Previously placed stent is patent CIRCUMFLEX ARTERY: MID CIRC: 75 % Stenosis RIGHT CORONARY ARTERY: MID RCA: 50 % Stenosis INTERVENTION INFORMATION LESION SITE: Circumflex (Mid) Lesion Complexity: High/C, lesion at bifurcation: No, thrombus present: No, lesion length: 24 mm, cul prit lesion: Yes Pre Stenosis: 75 % Pre intervention CONCHITA flow: 3 PROCEDURE: Drug Eluting Stent with post dilatation Post Stenosis: 0 % Post intervention CONCHITA flow: 3 Lesion Devices: [employer]icks[employer] 6 Fr EBU3.75 100cm Guide Catheter Pathak .014 BMW [place] Straight 190cm Gerry Sci Synergy MR VENANCIO 3.50x24 Gerry Sci NC EMERGE MR 3.75x08 BALLOON COMPLICATIONS No Complications PROCEDURE MEDICATIONS Versed 1 mg IV Fentanyl 25 mcg IV Oxygen: 2 L/min via nasal cannula Heparin 6000 unit(s) IV 02/13/2019 10:18:55 Nitro 200 mcg IC 02/13/2019 10:08:28 Nitro 200 mcg IC 02/13/2019 10:08:28 Nitro 200 mcg IC 02/13/2019 10:19:42 IV Bolus: .9 NaCl 200 ml total 02/13/2019 10:37:53 SUMMARY OF HEMODYNAMIC DATA Time AIR REST ECG 09:35:30 AO 113/74 (91) SA 10:04:59 LV 139/-9, 17 10:13:14 LV 141/-12, 14 10:13:22 LVp 140/-11, 15 10:13:27 AOp 134/78 (102) 10:13:32 AO 135/78 (102) 10:13:36 Signed By Gerber Marshall MD On 02/13/2019 10:56:46 Gerber Marshall MD
[2019-02-13] MEDS: 0.9% Normal Saline 1,000 ML 150 ML IV (11:10)
[2019-02-13] MEDS: Lidocaine 5% Patch 1 PATCH TOPICAL ×2 (11:31→11:42)
[2019-02-13] MEDS: Pantoprazole Sodium 20 MG Tablet PO (11:32)
[2019-02-13] MEDS: buPROPion (XL) 150 MG TABLET.XL PO (11:34)
[2019-02-13] MEDS: DULoxetine Hcl 60 MG Capsule 120 MG PO (11:34)
[2019-02-13] MEDS: Multivitamins,Ther W-Minerals Tablet 1 TABLET PO (11:35)
[2019-02-13 11:55] LABS: Bedside Glucose 149 mg/dL (70-110)
[2019-02-13 12:21] LABS: ACT Activated Clotting Time 191 sec (74-137)
--- NOTE | 2019-02-13 13:20 | PCM.PROGNOTE ---
<RoseyDonald - Last Filed: 02/13/19 13:20> Patient Problems: Active and Suspected Problems (Last Updated 09/22/18 @ 15:09 by Trina Garcia) Unstable angina pectoris due to coronary arteriosclerosis (Acute) Subjective: Patient resting comfortably in bed post heart catheterization and stenting this is no chest pain, shortness of breath, nausea or vomiting, headache or any other complaints at this time. - Physical Exam General: Alert, Oriented x3, Cooperative HEENT: Atraumatic, PERRLA, EOMI, Normocephalic Neck: Supple, No JVD, Negative Carotid Bruits Lungs: Clear to auscultation, Normal air movement Cardiovascular: Regular rate, No murmurs Abdomen: Bowel Sounds Present, Soft, Non Tender Extremities: No edema, Capillary Refill Less than 3 Seconds Skin: No rashes, No breakdown Musculoskeletal: No Tenderness to Palpation of Joints or Extremities Neurological: Cranial nerves II-XII grossly intact Psych/Mental Status: Normal Affect, Appropriate, Alert and oriented to time, place, person, mood and affect Vital Signs Temp Pulse Resp BP Pulse Ox 98.3 F 63 13 137/81 H 100 02/13/19 09:26 02/13/19 12:14 02/13/19 12:14 02/13/19 12:14 02/13/19 12:14 Oxygen Flow Rate (L/min) 2 Oxygen Delivery Method Nasal Cannula Weight: 217 lb 13.067 oz Body Mass Index (BMI) 29.7 Intake and Output for Last 24 Hours 02/11/19 02/12/19 02/13/19 23:59 23:59 23:59 Intake Total 770 / 1560 2950 / 2950 700 / 700 Output Total 700 / 1175 2650 / 2650 1150 / 1150 Balance 70 / 385 300 / 300 -450 / -450 Laboratory Tests Past 24 Hrs 02/13/19 02/13/19 02/13/19 03:50 03:50 03:50 WBC 7.2 RBC 4.87 Hgb 14.5 Hct 43.7 MCV 89.7 MCH 29.8 MCHC 33.2 RDW Std Deviation 38.5 RDW Coeff of Sarahi 11.8 Plt Count 141 L MPV 10.7 Immature Gran % (Auto) 0.400 Neut % (Auto) 54.0 Lymph % (Auto) 32.4 Ector % (Auto) 9.0 Eos % (Auto) 3.5 Baso % (Auto) 0.7 Absolute Neuts (auto) 3.9 Absolute Lymphs (auto) 2.34 Nucleated RBC % 0 PT 12.9 INR 1.0 APTT 29.1 Activated Clotting Time Sodium 142 Potassium 3.7 Chloride 107 Carbon Dioxide 27.0 Anion Gap 8 BUN 7 Creatinine 0.83 Estim Creat Clear Calc 113.60 Est GFR (MDRD) Af Amer 128 Est GFR (MDRD) Non-Af 106 BUN/Creatinine Ratio 8.5 L Glucose 238 H Hemoglobin A1c Calcium 8.4 L 02/13/19 02/13/19 03:50 10:35 WBC RBC Hgb Hct MCV MCH MCHC RDW Std Deviation RDW Coeff of Sarahi Plt Count MPV Immature Gran % (Auto) Neut % (Auto) Lymph % (Auto) Ector % (Auto) Eos % (Auto) Baso % (Auto) Absolute Neuts (auto) Absolute Lymphs (auto) Nucleated RBC % PT INR APTT Activated Clotting Time 191 H Sodium Potassium Chloride Carbon Dioxide Anion Gap BUN Creatinine Estim Creat Clear Calc Est GFR (MDRD) Af Amer Est GFR (MDRD) Non-Af BUN/Creatinine Ratio Glucose Hemoglobin A1c 7.8 H Calcium POC Glucose 02/13/19 02/12/19 02/12/19 11:17 21:34 16:23 POC Glucose 149 H 193 H 239 H Medical Necessity - Tobacco Use Smoking Status: Former smoker Assessment/Plan All Active Problems (Last Updated 09/22/18 @ 15:09 by Trina Garcia) Unstable angina pectoris due to coronary arteriosclerosis (Acute) Chest pain (Acute) Unstable angina (Resolved) NSTEMI (non-ST elevated myocardial infarction) (Resolved 09/14/18) 1. Unstable angina, hx CAD prior stent this year -patient underwent cardiac catheterization with successful PTCA to the mid LCx. 2. Hx PAfib - currently SR, controlled. Coreg. Xarelto held. 3. Anx/Depression - abilify, wellbutrin, cymbalta, zoloft, trazodone. Unclear why he is on both cymbalta and zoloft. 4. DMt2 - SSI the patient has an elevated A1c at 7.8 and would benefit from the addition of another agent at discharge, preferably one that offers cardiovascular protection such as Victoza or Jardiance. Will check if pt eligible prior to DC. 5. Tobacco abuse - stopped smoking but still using chewing tobacco. Encouraged cessation. Patch if desired. 6. 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 7. Left rotator cuff tear - needs follow up with ortho. continue patches. 8. Hx peripheral neuropathy - states his pain management doc is treating this with gabitril. DVT ppx: scds. DC planning: monitor overnight. This patient was seen by Donald Currie PA-C under the supervision of Dr. Bolton <Dante Bolton - Last Filed: 02/13/19 13:35> - Physical Exam Vital Signs Temp Pulse Resp BP Pulse Ox 98.3 F 63 13 137/81 H 100 02/13/19 09:26 02/13/19 12:14 02/13/19 12:14 02/13/19 12:14 02/13/19 12:14 Oxygen Flow Rate (L/min) 2 Oxygen Delivery Method Nasal Cannula Weight: 98.8 kg Body Mass Index (BMI) 29.7 Intake and Output for Last 24 Hours 02/11/19 02/12/19 02/13/19 23:59 23:59 23:59 Intake Total 770 / 1560 2950 / 2950 700 / 700 Output Total 700 / 1175 2650 / 2650 1150 / 1150 Balance 70 / 385 300 / 300 -450 / -450 Laboratory Tests Past 24 Hrs 02/13/19 02/13/19 02/13/19 03:50 03:50 03:50 WBC 7.2 RBC 4.87 Hgb 14.5 Hct 43.7 MCV 89.7 MCH 29.8 MCHC 33.2 RDW Std Deviation 38.5 RDW Coeff of Sarahi 11.8 Plt Count 141 L MPV 10.7 Immature Gran % (Auto) 0.400 Neut % (Auto) 54.0 Lymph % (Auto) 32.4 Ector % (Auto) 9.0 Eos % (Auto) 3.5 Baso % (Auto) 0.7 Absolute Neuts (auto) 3.9 Absolute Lymphs (auto) 2.34 Nucleated RBC % 0 PT 12.9 INR 1.0 APTT 29.1 Activated Clotting Time Sodium 142 Potassium 3.7 Chloride 107 Carbon Dioxide 27.0 Anion Gap 8 BUN 7 Creatinine 0.83 Estim Creat Clear Calc 113.60 Est GFR (MDRD) Af Amer 128 Est GFR (MDRD) Non-Af 106 BUN/Creatinine Ratio 8.5 L Glucose 238 H Hemoglobin A1c Calcium 8.4 L 02/13/19 02/13/19 03:50 10:35 WBC RBC Hgb Hct MCV MCH MCHC RDW Std Deviation RDW Coeff of Sarahi Plt Count MPV Immature Gran % (Auto) Neut % (Auto) Lymph % (Auto) Ector % (Auto) Eos % (Auto) Baso % (Auto) Absolute Neuts (auto) Absolute Lymphs (auto) Nucleated RBC % PT INR APTT Activated Clotting Time 191 H Sodium Potassium Chloride Carbon Dioxide Anion Gap BUN Creatinine Estim Creat Clear Calc Est GFR (MDRD) Af Amer Est GFR (MDRD) Non-Af BUN/Creatinine Ratio Glucose Hemoglobin A1c 7.8 H Calcium POC Glucose 02/13/19 02/12/19 02/12/19 11:17 21:34 16:23 POC Glucose 149 H 193 H 239 H Assessment/Plan This patient was seen in conjunction with Donald Currie PA-C . I have independently interviewed and examined the patient and reviewed pertinent historical, laboratory, and other data. Please refer to Donald Currie PA-C note for details of this patient's presentation, findings, and recommendations. I have reviewed Donald Currie PA-C note and concur with documented findings. In brief, patient is a 48-year-old with comorbidities including CAD with previous stent placement, diabetes mellitus type 2 tobacco dependence who presented with chest pain. Placed on a monitored bed cardiology consulted patient underwent left heart catheterization on 02/13/2019 with PCI's with VENANCIO to admit left circumflex lesion Physical Examination: GENERAL: cooperative HEENT: Atraumatic; EYES; Anicteric, Normal Conjunctiva NECK; supple, normal thyroid, RESPIRATORY: Diminished to auscultation bilaterally, CARDIOVASCULAR: Regular S1 S2, GI: soft, non-tender, normoactive bowel sounds, : No Renal angle tenderness; EXTREMITIES: No edema, no clubbing, MUSCULOSKELETAL: No Joint Tenderness; NEURO: Awake; no lateralizing signs. SKIN: No Rash PSYCH; Normal affect Assessment: 1. Unstable angina 2. CAD with prior stent placement 3. Diabetes mellitus type 2 4. Tobacco dependence 5. Diabetic polyneuropathy 6. Depression with anxiety 7. Paroxysmal atrial fibrillation 8. Chronic back pain 9. Left rotator cuff tear Recommendations: 1. I have discussed the results of my overview and impressions with the patient 2. Options for management were reviewed Code Visit Inpatient E&M: 21862 Subs Hosp L2
--- NOTE | 2019-02-13 14:10 | CRPHASE1 ---
Patient Communication PHII Cardiac Rehab Discussed with Patient:: Yes Guide to Cardiac Rehab Given to Patient:: Yes Cardiac Rehab Facility Choice List Given to Patient:: Yes Choice Program [facility] PHII:: Communication Given to CR, Refer to [facility] Executive Communications Manager:: Gerber Marshall PCP:: Taylor DAVIS Phase II Cardiac Rehab:: Yes Sessions:: 36 sessions - 3 days/wk, 12 weeks Risk Factors/Lifestyle Smoking Status: Former smoker - QUIT SEPTEMBER 2018 Hx Hypertension: Yes Hx Diabetes Mellitus Type 2: Yes Hx Dyslipidemia: Yes Height: 5 ft 10 in Weight:: 217 lb BMI: 31.1 ETOH: No Family History: Family History (Last Updated 11/21/18 @ 14:23 by Karin Boogie) Father Esophageal cancer Diabetes Myocardial infarction Mother Arthritis Diabetes Laboratory Values: Cardiac Rehab Phase I Labs 7.8 % (4.2-6.3) H 02/13/19 03:50 Triglycerides 188 mg/dL (-199) 02/11/19 02:10 Cholesterol 101 mg/dL (200) 02/11/19 02:10 34 mg/dL (0-130) 02/11/19 02:10 29 mg/dL (40-) L 02/11/19 02:10 Phase I Education Given On:: [place], Nutrition, Antiplatelet medication, CHF, Smoking cessation, Diabetes - Type I, Diabetes - Type II Issues Affecting Care:: None Hospital Course Pain Description: Pressure - PRESSURE, LT NECK PAIN,JAW PAIN, LIGHTHEADED/DIZZY Medical/Surgical History Angina:: Yes CAD:: Yes COPD:: No Asthma:: No Diabetes Type II:: Yes Hypertension:: Yes Dyslipidemia:: Yes Arrhythmias:: Yes - PAROXYSMAL A FIB PVD:: No GERD:: Yes Cancer:: No Renal:: No Thyroid:: No Depression:: Yes Anxiety:: Yes CABG: No PTCA:: Yes - SEPTEMBER AND FEB 2019 ICD:: No Pacemaker:: No Discharge/Home/Social Eval Discharge Disposition: Home Cardiac Rehabilitation Info Cardiac Rehabilitation Program Information: Cardiac Rehabilitation is important for patients like you who are recovering from a heart problem. Cardiac rehabilitation programs are recognized as integral to the continued care of the patient with coronary heart disease. The cardiac rehabilitation program is designed to optimize a patient's physical, psychological, and social functioning. Health residential caregiver work in cardiac rehabilitation programs and assist you with getting the treatments you need to get stronger and healthier - like exercise, healthy eating habits, and medications. Cardiac rehabilitation has been show to help people with heart problems live longer and have better life enjoyment than people who do not go to cardiac rehabilitation. Please contact the Cardiac Rehabilitation Program at [facility] at in two weeks if you have not heard from them.
--- NOTE | 2019-02-13 14:16 | CRPH1.INSTRU ---
General Education CAD and cardiac anatomy and function:: Not instructed Explanation of diagnoses and procedures:: Not instructed Sign/Symptoms of SC:: Not instructed Antiplatelet therapy: Not instructed Proper use of NTG-SL: Not instructed Emergency procedures and activation of EMS: Not instructed Compliance of all prescribed medications: Not instructed Smoking Patient Nicotine/Smoking Risk Factors Are:: Cigarettes - QUIT September Nicotine/Smoking Response Code:: Not instructed Dyslipidemia Patient Dyslipidemia Risk Factors Are:: Total Cholesterol - 101, Triglycerides - 188, HDL - 29, LDL - 34 Dyslipidemia Response Code:: Not instructed Overweight/Obesity Patient Overweight/Obesity Risk Factors Are:: Obesity - > or = 30 Recommendations Include:: Weight loss of 5-10%, Reduced calorie diet, Exercise 5-7 times/week Overweight/Obesity:: Not instructed Hypertension Recommendations Include:: Maintain BP <130/85, BP <130/80 if diabetic, DASH dietary guidelines, Decrease/maintain normal body weight, Moderation of ETOH Hypertension:: Not instructed Heart Disease Patient Heart Disease Risk Factors Are:: Family history of heart disease < 65 years old Heart Disease Response Code:: Not instructed Diabetes Patient Diabetes Risk Factors Are:: Elevated blood sugars Diabetes:: Not instructed Metabolic Syndrome Metabolic Syndrome Response Code:: Not instructed Sedentary Sedentary Response Code:: Not instructed Stress Stress Response Code:: Not instructed
[2019-02-13 16:11] LABS: Bedside Glucose 110 mg/dL (70-110)
[2019-02-13] MEDS: Atorvastatin Calcium 80 MG Tablet PO (21:24)
[2019-02-13] MEDS: Insulin Lispro 100 UNIT/ML INSULN.PEN SC (21:25)
[2019-02-13] MEDS: ARIPiprazole 2 MG Tablet PO (21:25)
[2019-02-13] MEDS: Sertraline 100 MG Tablet 200 MG PO (21:25)
[2019-02-13 21:36] LABS: Bedside Glucose 266 mg/dL (70-110)
[2019-02-14] VITALS (9 sets, daily range): BP systolic 132–165; BP diastolic 71–104; PULSE 68–80; RESP 13–25; TEMP 36.6–37.2; O2SAT 95–99
[2019-02-14 00:15] LABS: Bedside Glucose 274 mg/dL (70-110)
[2019-02-14 04:59] LABS: Absolute Lymphocyte Count 1.81 X10^3/uL (0.83-4.51); Absolute Neutrophil Count 5.1 X10^3/uL (2.0-7.7); Basophil# 0.05 X10^3/uL; Basophil% 0.6 % (0-1); Eosinophil# 0.25 X10^3/uL; Eosinophils% 3.1 % (0-5); Hematocrit 43.8 % (40-54); Hemoglobin 14.7 g/dL (13.0-16.5); Lymphocyte # 1.81 X10^3/ul (4.0); Lymphocyte % 22.7 % (19-41); Mean Corp Hgb Conc 33.6 g/dL (32-36); Mean Corpuscular Hgb 29.8 pg (27.0-32.0); Mean Corpuscular Volume 88.8 fL (80-94); Mean Platelet Vol. 10.6 fl (6.2-12.0); Monocyte# 0.72 X10^3/uL; NRBC Flagged by Analyzer 0 % (0-5); Neutrophil # 5.11 X10^3/uL (2.7-7.7); Neutrophil % 64.2 % (47-70); Platelet Count 142 K/mm3 (150-450); RBC Distribution Width CV 11.9 % (11.6-14.6); RBC Distribution Width SD 38.7 fl (35.1-43.9); Red Blood Count 4.93 M/mm3 (4.6-6.2)
[2019-02-14 05:15] LABS: AST(SGOT) 16 U/L (15-37); Alanine Aminotransfer ALT/SGPT 35 U/L (16-61); Albumin, Serum 3.1 g/dL (3.2-5.0); Alkaline Phosphatase 67 U/L (45-117); Anion Gap 7 (5-15); BUN 7 mg/dL (7-18); BUN/Creat Ratio 8.8 RATIO (10-20); Calcium,Total 8.3 mg/dL (8.5-10.1); Chloride 105 mmol/L (98-107); EST Glomerular Filtration Rate 111 mL/min (>60); Est Glom Filt Rate - Afr Amer 134 mL/min (>60); Estimated Creatinine Clearance 117.86 ml/min; Glucose 130 mg/dL (74-106); Potassium 3.8 mmol/L (3.5-5.1); Protein, Total 6.1 g/dL (6.4-8.2); Sodium Level 141 mmol/L (136-145)
[2019-02-14] MEDS: HYDROmorphone 2 MG TABLET 4 MG PO (06:14)
[2019-02-14 06:36] LABS: Bedside Glucose 162 mg/dL (70-110)
--- NOTE | 2019-02-14 08:21 | PN.CARD_ITS ---
Subjectve: Patient feeling better today. No chest pain. Still has some left shoulder and neck pain. Right groin is clean/dry/intact, no thrills, bruits or hematoma. Hemoglobin and creatinine are within nominal limits. EKG shows normal sinus rhythm, no acute changes. Telemetry negative. Objective: Vital Signs Temp Pulse Resp BP Pulse Ox 97.9 F 74 17 155/97 H 95 02/14/19 07:35 02/14/19 07:35 02/14/19 07:35 02/14/19 07:35 02/14/19 07:35 Oxygen Flow Rate (L/min) 2 Oxygen Delivery Method Room Air Weight: 217 lb Body Mass Index (BMI) 29.7 Intake and Output for Last 24 Hours 02/12/19 02/13/19 02/14/19 23:59 23:59 23:59 Intake Total 2950 / 2950 2000 / 2800 800 / 800 Output Total 2650 / 2650 1650 / 2130 480 / 480 Balance 300 / 300 350 / 670 320 / 320 General: Awake, Alert, Oriented x 3 HEENT: PERRL, EOMI, Sclera Non Icteric Neck: Supple, Good ROM, No Lymph Node Enlargement Lungs: Clear to auscultation Cardiovascular: Regular Rhythm, Normal S1, Normal S2, No Murmurs, No Rubs, No Gallops Vascular: No Carotid Bruits, Normal Femoral Pulses, Normal Radial Pulses, Normal Dorsalis Pedal Pulse, Normal Posterior Tibial Pulses Abdomen: Bowel Sounds Present, Soft, Non Tender, No HSM, No Organomegaly Extremities: No Cyanosis, No Clubbing, No edema Neurological: No Focal Motor or Sensory Deficit 02/13/19 03:50: Hemoglobin A1c 7.8 H 02/14/19 04:50: WBC 8.0, RBC 4.93, Hgb 14.7, Hct 43.8, MCV 88.8, MCH 29.8, MCHC 33.6, Plt Count 142 L, MPV 10.6, Immature Gran % (Auto) 0.400, Neut % (Auto) 64.2, Lymph % (Auto) 22.7, [place] % (Auto) 9.0, Eos % (Auto) 3.1, Baso % (Auto) 0.6, Absolute Neuts (auto) 5.1, Nucleated RBC % 0 02/14/19 04:50: Sodium 141, Potassium 3.8, Chloride 105, Carbon Dioxide 29.0, Anion Gap 7, BUN 7, Creatinine 0.80, Est GFR (MDRD) Af Amer 134, Est GFR (MDRD) Non-Af 111, BUN/Creatinine Ratio 8.8 L, Glucose 130 H, Calcium 8.3 L, Total Bilirubin 0.40 Rhythm: EKG: ECHO: Stress Test: Cardiac Cath: PCI: CT Surgery: Holter monitor: EPS: PPM: CXR: Chest CT Scan: Medical Necessity - Tobacco Use Smoking Status: Former smoker - QUIT SEPTEMBER 2018 Assessment/Plan 1. Coronary artery disease: The patient presents with atypical, nonexertional left-sided shoulder and neck pain superimposed upon known torn rotator cuff of his left arm which is been known for several years, as well as cervical neurological issues which have been recommended to undergo surgery in the past. However, the patient has known coronary artery disease with incomplete revascularization in September 2018. Subsequent stress test in October 2018 showed no overt anterior ischemia. His initial presentation in September 2018 was left shoulder pain, neck pain and diaphoresis, similar to what happened yesterday. His troponins have been negative so I do not believe he requires urgent catheterization as of today. Patient underwent left heart catheterization yesterday which demonstrated widely patent stents in his diagonal, marked improve patency of his mid LAD with healing of his linear dissection, CONCHITA-3 flow throughout, possibly significant mid left circumflex stenosis and a large circumflex vessel. He underwent successful angioplasty and stenting of his mid left circumflex. His right coronary artery had nonobstructive coronary disease. LV function was normal. Recommend continuing aspirin, Brilinta. 2. Tobacco cessation: I strongly recommend the patient discontinue all tobacco products. 3. Paroxysmal atrial fibrillation: The patient has had no palpitations either during his most recent acute coronary syndrome or in the past several months. Would recommend holding Xarelto at this time as he has had no recurrent symptoms of atrial fibrillation and his LV function is intact. Should the patient have recurrent palpitations we will restart his Xarelto. 4. Hyperlipidemia: Recommend obtaining a fasting lipid profile. Continue Lipitor. 5. Patient may be discharged home. He will follow-up with Dr. Marshall going forward. Plan for cardiac rehab in 2 weeks time. Code Visit Inpatient E&M: 40112 Subs Hosp L2
[2019-02-14] MEDS: Multivitamins,Ther W-Minerals Tablet 1 TABLET PO (08:59)
[2019-02-14] MEDS: Aspirin E.C. 81 MG Tablet PO (08:59)
[2019-02-14] MEDS: TICAGRELOR 90 MG TABLET PO (08:59)
[2019-02-14] MEDS: Carvedilol 3.125 MG TABLET PO (08:59)
[2019-02-14] MEDS: DULoxetine Hcl 60 MG Capsule 120 MG PO (08:59)
[2019-02-14] MEDS: Lidocaine 5% Patch 1 PATCH TOPICAL ×2 (09:00→09:01)
[2019-02-14] MEDS: Pantoprazole Sodium 20 MG Tablet PO (09:04)
[2019-02-14] MEDS: buPROPion (XL) 150 MG TABLET.XL PO (09:05)
--- NOTE | 2019-02-14 09:10 | PCM.DC ---
- Discharge Diagnoses Current Active Problems: Current Active and Chronic Problems (Last Updated 09/22/18 @ 15:09 by Trina Garcia) Unstable angina pectoris due to coronary arteriosclerosis (Acute) You will use the following diet at home:: Calorie/Carbohydrate Controlled (specify 1200, 1400, etc) - 1800 keiko / day, Cardiac Your food should be the consistency of: Regular Your liquids should be the consistency of: Regular/Thin Discharge Activity: Return to Normal Activity Allergies/Adverse Reactions: Allergies pregabalin [From Lyrica] Adverse Reaction (Verified 02/10/19 15:52) Itching Medications to take at Discharge Hydromorphone HCl [Dilaudid] 4 mg PO Q6H 02/17/16 Sertraline HCl [Zoloft] 200 mg PO QHS 02/17/16 Tiagabine HCl [Gabitril] 4 mg PO DAILY 02/17/16 Multivitamin with Minerals [Multiple Vitamin] 1 ea PO DAILY 09/14/18 Nitroglycerin (INPATIENT USE) [Nitrostat] 0.4 mg SUBLINGUAL Q5M PRN #1 bottle 09/16/18 aripiprazole 2 mg tablet 2 mg PO QHS tab 09/22/18 duloxetine 60 mg capsule,delayed release 120 mg PO DAILY cap 09/22/18 Krill/Om-3/Dha/Epa/Phospho/Ast [Megared [place]-3 Krill Oil Sfgl] 1 ea PO DAILY 10/06/18 glimepiride 2 mg tablet 2 mg PO DAILY #90 tab 11/21/18 omeprazole 20 mg capsule,delayed release 20 mg PO DAILY #90 cap 11/21/18 aspirin 81 mg tablet,delayed release 81 mg PO DAILY #90 tab 01/30/19 carvedilol 3.125 mg tablet 3.125 mg PO BID #60 tab 01/30/19 morphine ER 30 mg capsule,extended release 24 hr multiphase 30 mg PO BID 01/30/19 ticagrelor 90 mg tablet 90 mg PO BID #60 tab 01/30/19 Atorvastatin Calcium 80 mg PO DAILY 02/10/19 Bupropion HCl [Wellbutrin Xl] 150 mg PO DAILY 02/10/19 Lisinopril [Prinivil] 10 mg PO DAILY 02/10/19 Tiagabine HCl 8 mg PO QHS 02/10/19 Trazodone HCl 50 mg PO QHS PRN PRN 02/10/19 Dapagliflozin Propanediol [Farxiga] 5 mg PO DAILY #30 tab 02/14/19 Metformin HCl [Glucophage] 1,000 mg PO BID #360 tab 02/14/19 The following prescriptions were given: Dapagliflozin Propanediol [Farxiga] 5 mg PO DAILY #30 tab Transmission Status: Pending to [address] Orders to be completed after discharge: Phase II, Outpatient Cardiac Rehab Location: None Selected Primary Care Physician: Michael De Jesus MD [Primary Care Provider] - Please follow up with your Primary Care Physician in: 1-2 weeks Test Results: Test results from this visit will be discussed in further detail at your follow-up appointment, if applicable. Please Follow Up With: Gerber Marshall MD When: as directed Proposed Discharge Date: 02/14/19
[2019-02-14] MEDS: Insulin Lispro 100 UNIT/ML INSULN.PEN SC (09:12)
--- NOTE | 2019-02-14 09:14 | PCM.DC.SUM ---
<Donald Currie - Last Filed: 02/14/19 09:14> Discharge Date and Diagnosis Date of Admission: 02/10/19 Date of Discharge: 02/14/19 - Primary Discharge Diagnosis Active and Suspected Problems (Last Updated 09/22/18 @ 15:09 by Trina Garcia) Unstable angina pectoris due to coronary arteriosclerosis (Acute) Status post PTCA to the left mid circumflex Paroxysmal atrial fibrillation Type 2 diabetes-uncontrolled Ongoing tobacco abuse Hypertension hyperlipidemia Left rotator cuff tear Peripheral neuropathy Chronic pain syndrome - Secondary Discharge Diagnosis Chronic Problems (Last Updated 09/22/18 @ 15:09 by Trina Garcia) Atherosclerosis of [place] coronary artery of [place] heart without angina pectoris (Chronic) Successful PTCA/VENANCIO mid DIAG#1 with a 2.25 x 24 Promus Synergy Paroxysmal atrial fibrillation (Chronic) History of non-ST elevation myocardial infarction (NSTEMI) (Chronic 09/14/18) Stented coronary artery (Chronic 09/14/18) 09/14/2018:Successful PTCA/VENANCIO mid DIAG#1 with a 2.25 x 24 Promus Synergy (Unable to wire mid LAD despite trying multiple wires. Lesion is clustered at a bifurcation with several septals and due to possibility of accessing false lumen and reaching iv contrast dye threshold, no further attempts were made to cannulate with a wire. MID LAD lesion looked identical to original cath; no perforation and pt is completely asymptomatic. Will proceed with medical management with asa/brilinta and xeralto for PAF and allow vesselt to heal. if pt has recurrent CP or anterior ischemia, will consider another PCI attempt to mid LAD with new IV dye load). 02/13/2019:Successful PTCA/VENANCIO mid LCX with a 3.5 x 24 Promus Synergy Anxiety and depression (Chronic) Tobacco use (Chronic) Benign essential HTN (Chronic) Chronic pain (Chronic) Depression (Chronic) DM2 (diabetes mellitus, type 2) (Chronic) HLD (hyperlipidemia) (Chronic) Hospital Course and Treatment Imaging Results: DIAGNOSTICS: RAD/Chest 1 View (Portable) IMPRESSION: Normal x-ray examination of the chest. CATH REPORT CONCLUSIONS Normal LV size, wall motion,and systolic function Normal Left Ventricular systolic function LVEF: by LV gram 65 % Normal Left Ventricular End Diastolic Pressure Single vessel CAD of the mid LCX Non obstructive coronary arteries of mid LAD and mid RCA Successful PTCA/VENANCIO mid LCX with a 3.5 x 24 Promus Synergy, post dilated in proximal 3/4 with a 3.75 x 8 NC Balloon; 75%-->0%. Lesion treated given recurrent anginal symptoms in the absence of abnormal stress testing. Successful Mynx Control closure of RFA. RECOMMENDATIONS Referred for immediate PCI Highly recommend quitting all tobacco products Follow up with primary nutrition instructor Risk factor modification ASA Indefinitley Plavix for at least 12 months Routine post interventional care Refer for Outpatient Cardiac Rehab Manual sheath removal per protocol Follow up with Dr. Marshall Will continue to treat previously noted linear mid LAD dissection with medical management as it appears to be healing well and had no evidence of anterior ischemia by stress tesing in 10/2018. I would recommend 4 to 6 months of additional healing prior to any attempts at PCI of mid LAD. Would not cover DIAG with stent given very large proximal LAD. I believe source of pt's shoulder and neck pain are from musculoskeletal disease and pt would benefit from surgical correction of same. Consults: Rolando - cardiology Operations: None Procedures: None Summary of Care Provided: Hospital course: The patient is a 48 year old M with past medical history of coronary artery disease with prior stent who was recently stented September of this year in the mid diagonal, with known disease to the LAD that was unable to be stented at that time, also with a history of paroxysmal A. fib, ongoing nicotine abuse, type 2 diabetes, hypertension, hyperlipidemia, chronic pain syndrome secondary to lumbar disc disease, who presented to the emergency room with complaints of pain in the left side of his neck and shoulder that he felt was similar to the last time he underwent stenting. He was admitted to the PCU and placed on telemetry for unstable angina. After admission he had no recurrence of his chest pain. Dr. Marshall was consulted and a catheterization was arranged for the following Wednesday. He underwent heart catheterization and did have a stent placed in his mid left circumflex, see cath report as above. The patient was discontinued off of Xarelto as he has had no episodes of A. fib no palpitations-he will need to restart this if he does have recurrent palpitations. Patient was Coedy on aspirin and Brilinta, carvedilol, and high-dose Lipitor. These were recommended to be continued. His A1c was also uncontrolled for his age at 7.8-recommended the addition of farxiga as it is recommended for the prevention of cardiovascular events. He did take this in the past and tolerated it well. He remained stable following the catheterization with no recurrence of his anginal symptoms. He was discharged home in stable condition. He will need to follow-up with cardiac rehab, Dr. Marshall as directed, his PCP in 1 to 2 weeks. This patient was seen by Donald Currie PA-C under the supervision of Doctor Che. [] - Physical Exam General: Alert, Oriented x3, Cooperative HEENT: Atraumatic, PERRLA, EOMI, Normocephalic Neck: Supple, No JVD, Negative Carotid Bruits Lungs: Clear to auscultation, Normal air movement Cardiovascular: Regular rate, No murmurs Abdomen: Bowel Sounds Present, Soft, Non Tender Extremities: No edema, Capillary Refill Less than 3 Seconds Skin: No rashes, No breakdown Musculoskeletal: No Tenderness to Palpation of Joints or Extremities Neurological: Cranial nerves II-XII grossly intact Psych/Mental Status: Normal Affect, Appropriate Vital Signs Temp Pulse Resp BP Pulse Ox 97.9 F 74 17 155/97 H 95 02/14/19 07:35 02/14/19 07:35 02/14/19 07:35 02/14/19 07:35 02/14/19 07:35 Oxygen Flow Rate (L/min) 2 Oxygen Delivery Method Room Air Weight: 217 lb Body Mass Index (BMI) 29.7 Intake and Output for Last 24 Hours 02/12/19 02/13/19 02/14/19 23:59 23:59 23:59 Intake Total 2950 / 2950 2000 / 2800 800 / 800 Output Total 2650 / 2650 1650 / 2130 480 / 480 Balance 300 / 300 350 / 670 320 / 320 Laboratory Tests Past 24 Hrs 02/13/19 02/13/19 02/14/19 03:50 10:35 04:50 WBC 8.0 RBC 4.93 Hgb 14.7 Hct 43.8 MCV 88.8 MCH 29.8 MCHC 33.6 RDW Std Deviation 38.7 RDW Coeff of Sarahi 11.9 Plt Count 142 L MPV 10.6 Immature Gran % (Auto) 0.400 Neut % (Auto) 64.2 Lymph % (Auto) 22.7 [place] % (Auto) 9.0 Eos % (Auto) 3.1 Baso % (Auto) 0.6 Absolute Neuts (auto) 5.1 Absolute Lymphs (auto) 1.81 Nucleated RBC % 0 Activated Clotting Time 191 H Sodium Potassium Chloride Carbon Dioxide Anion Gap BUN Creatinine Estim Creat Clear Calc Est GFR (MDRD) Af Amer Est GFR (MDRD) Non-Af BUN/Creatinine Ratio Glucose Hemoglobin A1c 7.8 H Calcium Total Bilirubin AST ALT Alkaline Phosphatase Total Protein Albumin Globulin Albumin/Globulin Ratio 02/14/19 04:50 WBC RBC Hgb Hct MCV MCH MCHC RDW Std Deviation RDW Coeff of Sarahi Plt Count MPV Immature Gran % (Auto) Neut % (Auto) Lymph % (Auto) [place] % (Auto) Eos % (Auto) Baso % (Auto) Absolute Neuts (auto) Absolute Lymphs (auto) Nucleated RBC % Activated Clotting Time Sodium 141 Potassium 3.8 Chloride 105 Carbon Dioxide 29.0 Anion Gap 7 BUN 7 Creatinine 0.80 Estim Creat Clear Calc 117.86 Est GFR (MDRD) Af Amer 134 Est GFR (MDRD) Non-Af 111 BUN/Creatinine Ratio 8.8 L Glucose 130 H Hemoglobin A1c Calcium 8.3 L Total Bilirubin 0.40 AST 16 ALT 35 Alkaline Phosphatase 67 Total Protein 6.1 L Albumin 3.1 L Globulin 3.0 Albumin/Globulin Ratio 1.0 POC Glucose 02/14/19 02/13/19 02/13/19 06:12 21:18 16:08 POC Glucose 162 H 266 H 110 02/13/19 02/13/19 11:17 07:00 POC Glucose 149 H 274 H Discharge Diet: Low fat/ Low Cholesterol, 1800 Calorie Control Diet, 2000 mg Sodium Diet Discharge Activity: Return to Normal Activity Home Medications: Medications to take at Discharge Hydromorphone HCl [Dilaudid] 4 mg PO Q6H 02/17/16 Sertraline HCl [Zoloft] 200 mg PO QHS 02/17/16 Tiagabine HCl [Gabitril] 4 mg PO DAILY 02/17/16 Multivitamin with Minerals [Multiple Vitamin] 1 ea PO DAILY 09/14/18 Nitroglycerin (INPATIENT USE) [Nitrostat] 0.4 mg SUBLINGUAL Q5M PRN #1 bottle 09/16/18 aripiprazole 2 mg tablet 2 mg PO QHS tab 09/22/18 duloxetine 60 mg capsule,delayed release 120 mg PO DAILY cap 09/22/18 Krill/Om-3/Dha/Epa/Phospho/Ast [Megared Java-3 Krill Oil Sfgl] 1 ea PO DAILY 10/06/18 glimepiride 2 mg tablet 2 mg PO DAILY #90 tab 11/21/18 omeprazole 20 mg capsule,delayed release 20 mg PO DAILY #90 cap 11/21/18 aspirin 81 mg tablet,delayed release 81 mg PO DAILY #90 tab 01/30/19 carvedilol 3.125 mg tablet 3.125 mg PO BID #60 tab 01/30/19 morphine ER 30 mg capsule,extended release 24 hr multiphase 30 mg PO BID 01/30/19 ticagrelor 90 mg tablet 90 mg PO BID #60 tab 01/30/19 Atorvastatin Calcium 80 mg PO DAILY 02/10/19 Bupropion HCl [Wellbutrin Xl] 150 mg PO DAILY 02/10/19 Lisinopril [Prinivil] 10 mg PO DAILY 02/10/19 Tiagabine HCl 8 mg PO QHS 02/10/19 Trazodone HCl 50 mg PO QHS PRN PRN 02/10/19 Canagliflozin [Invokana] 100 mg PO DAILY #30 tab 02/14/19 Metformin HCl [Glucophage] 1,000 mg PO BID #360 tab 02/14/19 Following Prescrptions Were Given to Patient: Canagliflozin [Invokana] 100 mg PO DAILY #30 tab Transmission Status: Received by [facility] Orders: Phase II, Outpatient Cardiac Rehab Location: None Selected Primary Care Physician: Michael De Jesus MD [Primary Care Provider] - Please follow up with your Primary Care Physician in: 1-2 weeks Please Follow Up With: Gerber Marshall MD When: as directed Disposition: Home Minutes spent on discharge:: 35 Patient Condition:: Stable Medical Necessity - Tobacco Use Smoking Status: Former smoker - QUIT SEPTEMBER 2018 Meaningful Use Info Meaningful Use Diagnoses (Choose all that apply): None applicable <Dante Bolton - Last Filed: 02/14/19 10:06> Discharge Date and Diagnosis - Secondary Discharge Diagnosis Chronic Problems (Last Updated 09/22/18 @ 15:09 by Trina Garcia) Atherosclerosis of [place] coronary artery of [place] heart without angina pectoris (Chronic) Successful PTCA/VENANCIO mid DIAG#1 with a 2.25 x 24 Promus Synergy Paroxysmal atrial fibrillation (Chronic) History of non-ST elevation myocardial infarction (NSTEMI) (Chronic 09/14/18) Stented coronary artery (Chronic 09/14/18) 09/14/2018:Successful PTCA/VENANCIO mid DIAG#1 with a 2.25 x 24 Promus Synergy (Unable to wire mid LAD despite trying multiple wires. Lesion is clustered at a bifurcation with several septals and due to possibility of accessing false lumen and reaching iv contrast dye threshold, no further attempts were made to cannulate with a wire. MID LAD lesion looked identical to original cath; no perforation and pt is completely asymptomatic. Will proceed with medical management with asa/brilinta and xeralto for PAF and allow vesselt to heal. if pt has recurrent CP or anterior ischemia, will consider another PCI attempt to mid LAD with new IV dye load). 02/13/2019:Successful PTCA/VENANCIO mid LCX with a 3.5 x 24 Promus Synergy Anxiety and depression (Chronic) Tobacco use (Chronic) Benign essential HTN (Chronic) Chronic pain (Chronic) Depression (Chronic) DM2 (diabetes mellitus, type 2) (Chronic) HLD (hyperlipidemia) (Chronic) Hospital Course and Treatment Summary of Care Provided: This patient was seen in conjunction with Donald Currie PA-C . I have independently interviewed and examined the patient and reviewed pertinent historical, laboratory, and other data. Please refer to Donald Currie PA-C note for details of this patient's presentation, findings, and recommendations. I have reviewed Donald Currie PA-C note and concur with documented findings. In brief, patient is a 48-year-old with comorbidities including CAD with previous stent placement, diabetes mellitus type 2 tobacco dependence who presented with chest pain. Placed on a monitored bed cardiology consulted patient underwent left heart catheterization on 02/13/2019 with PCI's with VENANCIO to admit left circumflex lesion 1. Unstable angina 2. CAD with prior stent placement 3. Diabetes mellitus type 2 4. Tobacco dependence 5. Diabetic polyneuropathy 6. Depression with anxiety 7. Paroxysmal atrial fibrillation 8. Chronic back pain 9. Left rotator cuff tear Hospital course: As documented above - Physical Exam Vital Signs Temp Pulse Resp BP Pulse Ox 97.9 F 71 19 H 146/88 H 97 02/14/19 09:08 08/13/19 09:08 02/14/19 09:08 02/14/19 09:08 02/14/19 09:08 Oxygen Flow Rate (L/min) 2 Oxygen Delivery Method Room Air Weight: 98.43 kg Body Mass Index (BMI) 29.7 Intake and Output for Last 24 Hours 02/12/19 02/13/19 02/14/19 23:59 23:59 23:59 Intake Total 2950 / 2950 2000 / 2800 800 / 800 Output Total 2650 / 2650 1650 / 2130 480 / 480 Balance 300 / 300 350 / 670 320 / 320 Laboratory Tests Past 24 Hrs 02/13/19 02/14/19 02/14/19 10:35 04:50 04:50 WBC 8.0 RBC 4.93 Hgb 14.7 Hct 43.8 MCV 88.8 MCH 29.8 MCHC 33.6 RDW Std Deviation 38.7 RDW Coeff of Sarahi 11.9 Plt Count 142 L MPV 10.6 Immature Gran % (Auto) 0.400 Neut % (Auto) 64.2 Lymph % (Auto) 22.7 [place] % (Auto) 9.0 Eos % (Auto) 3.1 Baso % (Auto) 0.6 Absolute Neuts (auto) 5.1 Absolute Lymphs (auto) 1.81 Nucleated RBC % 0 Activated Clotting Time 191 H Sodium 141 Potassium 3.8 Chloride 105 Carbon Dioxide 29.0 Anion Gap 7 BUN 7 Creatinine 0.80 Estim Creat Clear Calc 117.86 Est GFR (MDRD) Af Amer 134 Est GFR (MDRD) Non-Af 111 BUN/Creatinine Ratio 8.8 L Glucose 130 H Calcium 8.3 L Total Bilirubin 0.40 AST 16 ALT 35 Alkaline Phosphatase 67 Total Protein 6.1 L Albumin 3.1 L Globulin 3.0 Albumin/Globulin Ratio 1.0 POC Glucose 02/14/19 02/14/19 02/13/19 09:12 06:12 21:18 POC Glucose 264 H 162 H 266 H 02/13/19 02/13/19 02/13/19 16:08 11:17 07:00 POC Glucose 110 149 H 274 H Meaningful Use Info - AMI Aspirin given w/in 24hrs of arrival?: Yes Statins at discharge?: Yes Selvin/ARB at discharge?: Yes Beta [place] at discharge?: Yes Done w/ Acute VA measure.: Yes Documented LVEF (%): 65 Code Visit Inpatient E&M: 54498 Disch Hosp
[2019-02-14 09:21] LABS: Bedside Glucose 264 mg/dL (70-110)
--- NOTE | 2019-02-14 10:00 | EKG12_ITS ---
Test Reason : AM Blood Pressure : / mmHG Vent. Rate : 071 BPM Atrial Rate : 071 BPM P-R Int : 124 ms QRS Dur : 084 ms QT Int : 398 ms P-R-T Axes : 033 024 043 degrees QTc Int : 432 ms Normal sinus rhythm Normal ECG When compared with ECG of 13-FEB-2019 05:32, MANUAL COMPARISON REQUIRED, DATA IS UNCONFIRMED Confirmed by FESTUS DILLARD ([id number]), newspaper editor managing ALLYSON STACK ([id number]) on 02/27/2019 2:32:57 PM Referred By: Mayela Srinivasan Confirmed By:FESTUS DILLARD
--- NOTE | 2019-02-14 10:15 | CASEMGMT ---
RN CM Note: Pt to be dc'd today. Appointments were made for cardiology on discharge. Per [facility]- Invokana is covered and does not need precertification. Also gave [employer] savings card information over phone. Jhonathan TUBBSN RN ACM
--- NOTE | 2019-02-15 14:06 | CASEMGMT ---
Addendum entered by Carey Main 02/15/19 14:29: Called listed Cell number to patient Mackenzie, answered and states patient is not available. Upon asking if she could take a message, when this board writer introduced self and asked if she had anything to write contact information down for patient to return call, CM was hung up on. No further attempts made at this time. ANTONI Ramos Original Note: Case Management DC F/u Call: DC Date: 02/14/19 DC Diagnosis: Unstable angina pectoris due to coronary arteriosclerosis (Acute) Status post PTCA to the left mid circumflex Paroxysmal atrial fibrillation Type 2 diabetes-uncontrolled Ongoing tobacco abuse Hypertension hyperlipidemia Left rotator cuff tear Peripheral neuropathy Chronic pain syndrome DC Disposition: Home LACE/STRATA: 16/10 Attempted to call patient Home Phone number in Demographics, Number listed is to [facility]. ANTONI Ramos
== END 2019-02-14 09:35 | disposition home or self-care (01) | DRG 247 ==
LOC: ED 18:13 → ICU 18:18 → PCU 02-13 07:18 → ICU 02-13 09:59 → PCU 02-13 09:59 → ICU 02-14 11:38
PROVIDERS: Hospitalist; Internal Medicine; Internal Medicine Cardiovascular Disease; Physician Assistant; Admitting Provider Student in an Organized Health Care Education/Training Program; Emergency Provider Emergency Medicine; Family Provider Internal Medicine; PCP Internal Medicine; Referring Provider Student in an Organized Health Care Education/Training Program; Visit Provider Internal Medicine
DX: I25.110 Atherosclerotic heart disease of native coronary artery with unstable angina pectoris (principal); M50.90 Cervical disc disorder, unspecified, unspecified cervical region; E78.5 Hyperlipidemia, unspecified; I48.0 Paroxysmal atrial fibrillation; I10 Essential (primary) hypertension; F17.220 Nicotine dependence, chewing tobacco, uncomplicated; M75.102 Unspecified rotator cuff tear or rupture of left shoulder, not specified as traumatic; F41.8 Other specified anxiety disorders; E11.42 Type 2 diabetes mellitus with diabetic polyneuropathy; E11.65 Type 2 diabetes mellitus with hyperglycemia; G89.4 Chronic pain syndrome; Z95.5 Presence of coronary angioplasty implant and graft; I25.2 Old myocardial infarction; Z79.01 Long term (current) use of anticoagulants; Z79.84 Long term (current) use of oral hypoglycemic drugs
CPT/HCPCS: 36415; 71045; 80048; 80053; 80061; 82962; 83036; 84484; 85025; 85347; 85610; 85730; 92928; 93005; 93458; 99152; 99153; 99285; J7030; Q9967; A4216; C1725; C1769; C1874; C1887; C1894; C9600; J2405

== ENCOUNTER 2019-07-06 16:55 | Emergency (ER) | payer MEDICARE, MEDICAID, SELFPAY ==
[2019-02-14 09:19] VITALS: BMI 28.3
[2019-02-24 11:10] VITALS: BMI 28.8
[2019-07-06] VITALS (11 sets, daily range): BP systolic 110–123; BP diastolic 60–81; PULSE 76–107; RESP 16–18; TEMP 36.9; O2SAT 93–99; BMI 30.1
--- NOTE | 2019-07-06 17:00 | RAD_ITS ---
STUDY: X-RAY CHEST REASON FOR EXAM: Male, 48 years old. Chest pain. TECHNIQUE: Single AP portable view of the chest. COMPARISON: February 10, 2019. FINDINGS: The lungs are clear and expanded. There is no demonstrated pleural abnormality. Normal size heart. Normal mediastinum and oseas. Normal visualized pulmonary arteries. Normal visualized aortic arch and descending thoracic aorta. The thoracic spine is obscured by the mediastinum. Normal visualized ribs, clavicles, and shoulders. There is no demonstrated abnormality of the visualized soft tissue structures of the upper abdomen. RAD/Chest 1 View (Portable) IMPRESSION: No acute cardiopulmonary disease or major interval change. Electronically Signed: Raúl Zimmer DO at 17:34 EST Tel [phone], Service support ,
--- NOTE | 2019-07-06 17:00 | EKG12_ITS ---
Test Reason : CP Blood Pressure : / mmHG Vent. Rate : 093 BPM Atrial Rate : 093 BPM P-R Int : 144 ms QRS Dur : 084 ms QT Int : 352 ms P-R-T Axes : 057 013 054 degrees QTc Int : 437 ms Sinus rhythm with Premature atrial complexes Septal infarct , age undetermined Abnormal ECG Confirmed by BIANKA LEGGETT, AMIE ([id number]), publication editor ITALIA JORDAN ([id number]) on 07/10/2019 12:46:30 PM Referred By: SALTY Confirmed By:AMIE CARLTON MD
[2019-07-06 17:53] LABS: Absolute Lymphocyte Count 3.55 X10^3/uL (0.83-4.51); Absolute Neutrophil Count 7.7 X10^3/uL (2.0-7.7); Basophil# 0.12 X10^3/uL; Basophil% 0.9 % (0-1); Eosinophil# 0.28 X10^3/uL; Eosinophils% 2.2 % (0-5); Hematocrit 50.5 % (40-54); Hemoglobin 16.7 g/dL (13.0-16.5); Lymphocyte # 3.55 X10^3/ul (4.0); Lymphocyte % 27.9 % (19-41); Mean Corp Hgb Conc 33.1 g/dL (32-36); Mean Corpuscular Hgb 29.2 pg (27.0-32.0); Mean Corpuscular Volume 88.4 fL (80-94); Mean Platelet Vol. 10.3 fl (6.2-12.0); Monocyte# 1.01 X10^3/uL; Monocyte% 7.9 % (0-10); NRBC Flagged by Analyzer 0 % (0-5); Neutrophil # 7.67 X10^3/uL (2.7-7.7); Neutrophil % 60.4 % (47-70); Platelet Count 187 K/mm3 (150-450); RBC Distribution Width CV 12.4 % (11.6-14.6); RBC Distribution Width SD 40.6 fl (35.1-43.9); Red Blood Count 5.71 M/mm3 (4.6-6.2); White Blood Count 12.7 K/mm3 (4.4-11.0)
[2019-07-06 18:13] LABS: Anion Gap 8 (5-15); BUN 14 mg/dL (7-18); BUN/Creat Ratio 7.1 RATIO (10-20); Calcium,Total 9.1 mg/dL (8.5-10.1); Chloride 106 mmol/L (98-107); Creatinine, Serum 1.97 mg/dL (0.70-1.30); EST Glomerular Filtration Rate 39 mL/min (>60); Est Glom Filt Rate - Afr Amer 47 mL/min (>60); Estimated Creatinine Clearance 47.86 ml/min; Glucose 191 mg/dL (74-106); Potassium 3.9 mmol/L (3.5-5.1); Sodium Level 141 mmol/L (136-145)
[2019-07-06] MEDS: Aspirin 81 MG TAB.CHEW 324 MG PO (19:19)
[2019-07-06] MEDS: Nitroglycerin SL (ED/IMG/CATH) 0.4 MG TABLET SUBLINGUAL ×3 (19:19→19:31)
[2019-07-06] MEDS: Morphine 4 MG/ML Syringe IV (19:54)
--- NOTE | 2019-07-06 21:16 | ED.VISSUMM ---
- ER Visit Summary Date of Service: 07/06/19 Chief Complaint: Neck pain and numbness in left arm and jaw History of Present Illness: The patient is a 48 M who presents with neck pain and numbness in his left arm and jaw that began approximately 4 hours prior to arrival. Patient describes it as a numbing sensation. Patient states it is in his jaw and radiates into his left arm. Patient states this feels similar to the symptoms he had with his prior [place]. Patient admits to some palpitations. Patient denies any nausea or vomiting. Patient does admit to some diaphoresis. Patient denies any shortness of breath. Physical Examination: Vital signs are stable. Patient is afebrile. Patient is in no acute distress. Oral mucosa is pink and moist. Neck is supple. Trachea is midline. There is no JVD noted. Heart was regular rate and rhythm. Lungs are clear and equal bilaterally. Abdomen is soft. Bowel sounds are normal. There is no tenderness. There is no rebound or guarding noted. Skin is warm dry. Cranial nerves II through XII are intact. There are no focal motor or sensory deficits noted. Extremities are intact. There is no calf tenderness or edema. Test Results: EKG showed normal sinus rhythm with a rate of 93. There are no acute ST or T wave changes. Portable chest x-ray was obtained. There is no acute cardiopulmonary process. This was interpreted by the radiologist and myself. CBC shows a slight leukocytosis of 12.7. Glucose was 191. Troponin was less than 0.015. Given that his symptoms were only 4 hours prior to arrival, a delta troponin was obtained and was normal. Emergency Department Course and Treatment: Patient was given aspirin and nitroglycerin here. Patient had no improvement with this. Patient was given a dose of morphine. Patient felt better on reevaluation. Patient was instructed to drink plenty of fluids. Patient was instructed to follow-up with his primary care physician in 3 to 5 days for further evaluation. Patient understood and was agreeable with the plan. All questions were answered. Disposition: Discharge home Impression: 1. Chest pain This note was generated with Speech Kingdomation software. It may contain incorrect words, spelling, and punctuation that were not noted in review of the chart prior to signing ED Disposition - Plan for ED Patient: Disposition: Home or Assisted Living Diagnosis: Chest pain Instructions: CHEST PAIN, Uncertain Cause Referrals: Michael De Jesus MD [Primary Care Provider] - 3-5 Days
== END 2019-07-06 21:31 | disposition home or self-care (01) ==
PROVIDERS: Emergency Provider Emergency Medicine; Family Provider Internal Medicine; PCP Internal Medicine
DX: R07.9 Chest pain, unspecified (principal); R20.0 Anesthesia of skin; M54.2 Cervicalgia; M54.9 Dorsalgia, unspecified; G89.29 Other chronic pain; F17.220 Nicotine dependence, chewing tobacco, uncomplicated; I25.2 Old myocardial infarction; Z79.84 Long term (current) use of oral hypoglycemic drugs; Z79.02 Long term (current) use of antithrombotics/antiplatelets; Z79.82 Long term (current) use of aspirin; Z79.899 Other long term (current) drug therapy
CPT/HCPCS: 71045; 80048; 84484; 85025; 93005; 99284; J7030; A4216

== ENCOUNTER 2019-10-02 16:34 | Emergency (ER) | payer MEDICARE, SELFPAY ==
[2019-02-14 09:19] VITALS: BMI 28.3
[2019-08-28 13:09] VITALS: BMI 30.7
[2019-10-02 16:38] VITALS: BP 112/77; PULSE 105; RESP 17; TEMP 36.7; O2SAT 98; BMI 30.9
--- NOTE | 2019-10-02 16:48 | EKG12_ITS ---
Test Reason : CP Blood Pressure : / mmHG Vent. Rate : 087 BPM Atrial Rate : 087 BPM P-R Int : 134 ms QRS Dur : 088 ms QT Int : 376 ms P-R-T Axes : 047 016 049 degrees QTc Int : 452 ms Normal sinus rhythm Poor R- wave Progression Confirmed by YULI LEGGETT, DORA ([id number]), video editor ALLYSON STACK ([id number]) on 10/04/2019 9:39:39 AM Referred By: JAROD/SANTINO Confirmed By:DORA ROLDAN MD
--- NOTE | 2019-10-02 16:50 | RAD_ITS ---
STUDY: X-RAY CHEST REASON FOR EXAM: Male, 48 years old. pt c/o left shoulder pain, left jaw and arm numbness that started today. TECHNIQUE: Single frontal view of the chest. COMPARISON: July 06, 2019 FINDINGS: The lungs are clear and expanded. There is no demonstrated pleural abnormality. Normal size heart. Normal mediastinum and oseas. Normal visualized pulmonary arteries. Normal visualized aortic arch and descending thoracic aorta. Normal visualized thoracic spine. Normal visualized ribs, clavicles, and shoulders. There is no demonstrated abnormality of the visualized soft tissue structures of the upper abdomen. RAD/Chest 1 View (Portable) IMPRESSION: Normal x-ray examination of the chest. Electronically Signed: Otilio Appiah MD at 17:10 EDT Tel , Service support ,
[2019-10-02 17:02] LABS: Absolute Lymphocyte Count 3.87 X10^3/uL (0.83-4.51); Absolute Neutrophil Count 5.2 X10^3/uL (2.0-7.7); Basophil# 0.12 X10^3/uL; Basophil% 1.1 % (0-1); Eosinophil# 0.25 X10^3/uL; Eosinophils% 2.4 % (0-5); Hematocrit 52.8 % (40-54); Hemoglobin 17.2 g/dL (13.0-16.5); Lymphocyte # 3.87 X10^3/ul (4.0); Lymphocyte % 36.5 % (19-41); Mean Corp Hgb Conc 32.6 g/dL (32-36); Mean Corpuscular Hgb 28.9 pg (27.0-32.0); Mean Corpuscular Volume 88.6 fL (80-94); Mean Platelet Vol. 10.9 fl (6.2-12.0); Monocyte# 1.09 X10^3/uL; Monocyte% 10.3 % (0-10); NRBC Flagged by Analyzer 0 % (0-5); Neutrophil # 5.16 X10^3/uL (2.7-7.7); Neutrophil % 48.6 % (47-70); Platelet Count 209 K/mm3 (150-450); RBC Distribution Width CV 13.2 % (11.6-14.6); RBC Distribution Width SD 42.9 fl (35.1-43.9); Red Blood Count 5.96 M/mm3 (4.6-6.2); White Blood Count 10.6 K/mm3 (4.4-11.0)
[2019-10-02 17:10] LABS: Prothrombin Time (Protime)PT. 12.8 SECONDS (11.7-14.9)
--- NOTE | 2019-10-02 17:17 | ED.VIS.CHEST ---
History of Present Illness Chief Complaint: Back Detail of Chief Complaint: mid-upper back pain Informant: Patient Onset: Today - around 7 hrs prior to eval Activity at onset: Rest - lying around at home Timing: Intermittent Quality: Dull - and squeezing Location: - - mid-upper back Current Severity: Moderate Maximum Severity: Moderate Worsened By: Nothing. Not Worsened By: Exertion, Movement of Arm, Movement of Torso, Palpation, Breathing, Coughing Relieved By: Nothing. Not Relieved By: NTG - took 3 Associated Symptoms: Nausea, Diaphoresis. Negative for: Vomiting, Dyspnea, Cough, Fever, Lightheadedness, Palpitations - but heart rate was fast while feeling poorly Narrative: Patient states he started having this discomfort at rest today, he denies having any chest discomfort with it. The discomfort radiates to his left upper shoulder with some numbness there. He is feeling poorly suddenly with this discomfort, feeling sweaty and nauseated. He states these of the same symptoms that he had with his heart attack a year ago when a stent was placed, and they were unable to place a second that they wanted to but that was then placed at a later date with a repeat catheterization. He does not know his medications but takes what he is supposed to. He states it sometimes is difficult to discern what his back pain is coming from because he has a history of disc problems in his neck, thoracic spine, and lumbar spine. He had surgery on the lumbar area remotely. He discusses having disc pain of some sort on a day-to-day basis. He is also having a little tingling in both of his thighs but nothing distally and no weakness, no bowel or bladder dysfunction. Prior Similar Symptoms: Yes, With Prior [place] - Past Medical History (1) Anxiety and depression Status: Chronic (2) Atherosclerosis of [place] coronary artery of [place] heart without angina pectoris Status: Chronic Comment: Successful PTCA/VENANCIO mid DIAG#1 with a 2.25 x 24 Promus Synergy (3) Benign essential HTN Status: Chronic (4) Chronic pain Status: Chronic (5) DM2 (diabetes mellitus, type 2) Status: Chronic (6) HLD (hyperlipidemia) Status: Chronic (7) History of non-ST elevation myocardial infarction (NSTEMI) Status: Chronic (8) Paroxysmal atrial fibrillation Status: Chronic (9) Stented coronary artery Status: Chronic Comment: 09/14/2018:Successful PTCA/VENANCIO mid DIAG#1 with a 2.25 x 24 Promus Synergy (Unable to wire mid LAD despite trying multiple wires. Lesion is clustered at a bifurcation with several septals and due to possibility of accessing false lumen and reaching iv contrast dye threshold, no further attempts were made to cannulate with a wire. MID LAD lesion looked identical to original cath; no perforation and pt is completely asymptomatic. Will proceed with medical management with asa/brilinta and xeralto for PAF and allow vesselt to heal. if pt has recurrent CP or anterior ischemia, will consider another PCI attempt to mid LAD with new IV dye load). 02/13/2019:Successful PTCA/VENANCIO mid LCX with a 3.5 x 24 Promus Synergy Past Medical History - Allergies and Home Meds Allergies/Adverse Reactions: Allergies pregabalin [From Lyrica] Adverse Reaction (Verified 10/02/19 16:35) Itching Primary Care Physician: Michael De Jesus MD [Primary Care Provider] - Surgical History: - - Lumbar back surgery, bilateral knee arthroscopic surgery with 3 left and one right surgery performed. Lives: Alone Smoking Status: Former smoker - Family History Maternal Family History: Family History (Last Reviewed 08/28/19 @ 13:09 by Trina Garcia) Father Esophageal cancer Diabetes Myocardial infarction Mother Arthritis Diabetes Family History: Reports: - - Patient notes a maternal family history of HD. Paternal Family History: Family History (Last Reviewed 08/28/19 @ 13:09 by Trina Garcia) Father Esophageal cancer Diabetes Myocardial infarction Mother Arthritis Diabetes Family History: Reports: - - Father with a history of esophageal cancer. Review of Systems General: Reports: Malaise, Sweats. Denies: Chills, Fever Eyes: Denies: Visual changes - bilaterally, Diplopia ENT: Denies: Rhinorrhea, Sore throat Cardiovascular: Denies: Chest pain, Palpitations Respiratory: Denies: Dyspnea, Cough, Sputum, Dyspnea on exertion Gastrointestinal: Reports: Nausea. Denies: Abdominal pain, Vomiting, Diarrhea, Melena, Hematochezia Genitourinary: Denies: Dysuria, Hematuria, Frequency Musculoskeletal: Reports: Back pain, Extremity Pain. Denies: Neck pain Skin: Denies: Rash, Wounds Neurological: Reports: Parasthesia. Denies: Headache, Weakness Physical Exam Vital Signs/Narrative: Vital Signs Temp Pulse Resp BP Pulse Ox 10/02/19 16:38 98.0 F 105 H 17 112/77 98 Inital Vital Signs reviewed: Yes General: Well nourished, Well developed, No Acute Distress Head: Normocephalic, Atraumatic Eyes: Perrl, EOMI ENT: Moist mucous membranes, No rhinorrhea Neck: Supple, Nontender, No JVD Cardiovascular: Regular rate, Regular rhythm, No murmurs, Normal S1, Normal S2, Tachycardia - mild Respiratory: No distress, CTA bilaterally, Chest nontender Abdomen: Soft, Nontender, Nondistended, Normal bowel sounds Back: Nontender, Normal Inspection Extremities: Nontender, No edema. Negative for: Calf Tenderness Skin: Normal color, No rash, No Trauma Neurological: Alert, Oriented x3, Cranial nerves II-XII grossly intact, Normal Strength, Normal Sensation, Normal Gait Psychological: Normal affect, Normal Mood Diagnostic/Tx/Re-eval Impressions Chest X-Ray 10/02/19 16:50 IMPRESSION: Normal x-ray examination of the chest. Electronically Signed: Otilio Appiah MD at 17:10 EDT Tel , Service support , 10/02/19 16:50 Chest 1 View (Portable) [RAD] Stat Laboratory Results 10/02/19 10/02/19 10/02/19 16:40 16:40 16:40 WBC 10.6 RBC 5.96 Hgb 17.2 H Hct 52.8 MCV 88.6 MCH 28.9 MCHC 32.6 RDW Std Deviation 42.9 RDW Coeff of Sarahi 13.2 Plt Count 209 MPV 10.9 Immature Gran % (Auto) 1.100 H Neut % (Auto) 48.6 Lymph % (Auto) 36.5 [place] % (Auto) 10.3 H Eos % (Auto) 2.4 Baso % (Auto) 1.1 H Absolute Neuts (auto) 5.2 Absolute Lymphs (auto) 3.87 Nucleated RBC % 0 PT 12.8 INR 1.0 Sodium 137 Potassium 3.8 Chloride 102 Carbon Dioxide 28.0 Anion Gap 7 BUN 19 H Creatinine 1.19 Estim Creat Clear Calc 79.24 Est GFR (MDRD) Af Amer 84 Est GFR (MDRD) Non-Af 69 BUN/Creatinine Ratio 16.0 Glucose 240 H Calcium 9.2 Troponin I < 0.015 10/02/19 19:50 WBC RBC Hgb Hct MCV MCH MCHC RDW Std Deviation RDW Coeff of Sarahi Plt Count MPV Immature Gran % (Auto) Neut % (Auto) Lymph % (Auto) [place] % (Auto) Eos % (Auto) Baso % (Auto) Absolute Neuts (auto) Absolute Lymphs (auto) Nucleated RBC % PT INR Sodium Potassium Chloride Carbon Dioxide Anion Gap BUN Creatinine Estim Creat Clear Calc Est GFR (MDRD) Af Amer Est GFR (MDRD) Non-Af BUN/Creatinine Ratio Glucose Calcium Troponin I < 0.015 - Rhythm Strip Rhythm Strip: Sinus Rhythm Rate: 87 Ectopy: None - EKG Initial EKG Interpretation: Sinus Rhythm, No Acute Injury Pattern - normal axis, normal EKG Prior: Unchanged Treatment: Morphine, GI Cocktail Repeat Eval: improved after morphine; no change after GI cocktail CONCHITA Risk: >/= 3RF, H/O CAD, ASA within 7 days Score: 3 - Medical Decision Making Patient EKG is normal. Given his history however, further work-up was entertained. It was normal as well including a first troponin. Noncardiac etiology might explain why nitroglycerin was not helping at all. I discussed with Dr. Varma, he advised in this case performing a 3-hour delta troponin and if negative discharge the patient home for close outpatient follow-up. Patient was amenable to that. Delta troponin returned negative/0. I gave him a GI cocktail in the meantime, I did nothing, so we gave him another dose of morphine after the first 1 helped, and he will be discharged home for close outpatient follow-up. ED Disposition - Plan for ED Patient: Disposition: Home or Assisted Living Diagnosis: Chronic high back pain, Atherosclerosis of [place] coronary artery of [place] heart without angina pectoris Instructions: ED Back Pain Acute or Chronic Referrals: Michael De Jesus MD [Primary Care Provider] - 3-5 Days if not improving Gerber Marshall MD [STAFF PHYSICIAN] - 5-7 Days
[2019-10-02 17:26] LABS: Anion Gap 7 (5-15); BUN 19 mg/dL (7-18); Calcium,Total 9.2 mg/dL (8.5-10.1); Chloride 102 mmol/L (98-107); Creatinine, Serum 1.19 mg/dL (0.70-1.30); EST Glomerular Filtration Rate 69 mL/min (>60); Est Glom Filt Rate - Afr Amer 84 mL/min (>60); Estimated Creatinine Clearance 79.24 ml/min; Glucose 240 mg/dL (74-106); Potassium 3.8 mmol/L (3.5-5.1); Sodium Level 137 mmol/L (136-145)
[2019-10-02] MEDS: Morphine 4 MG/ML Syringe IV ×2 (17:30→20:20)
[2019-10-02] MEDS: Ondansetron 4 MG/2 ML Vial IV (17:30)
[2019-10-02] MEDS: Mag Hydrox/Al Hydrox/Simeth 30 ML UDC PO (19:24)
[2019-10-02 19:25] VITALS: BP 114/72; PULSE 75; RESP 13; O2SAT 97
--- NOTE | 2019-10-02 19:29 | ED.RN ---
SPOKE WITH PATIENTS AT THIS TIME AND UPDATED ON PLAN OF CARE
[2019-10-02 20:10] VITALS: BP 121/73; PULSE 78; RESP 16; O2SAT 95
[2019-10-02 20:49] VITALS: BP 121/73; PULSE 78; RESP 16; O2SAT 97
== END 2019-10-02 20:53 | disposition home or self-care (01) ==
PROVIDERS: Emergency Provider Emergency Medicine; PCP Internal Medicine
DX: M54.6 Pain in thoracic spine (principal); G89.29 Other chronic pain; I25.10 Atherosclerotic heart disease of native coronary artery without angina pectoris; R20.2 Paresthesia of skin; R20.0 Anesthesia of skin; R11.0 Nausea; I48.0 Paroxysmal atrial fibrillation; E11.9 Type 2 diabetes mellitus without complications; I10 Essential (primary) hypertension; E78.5 Hyperlipidemia, unspecified; F32.9 Major depressive disorder, single episode, unspecified; F41.9 Anxiety disorder, unspecified; Z79.84 Long term (current) use of oral hypoglycemic drugs; Z79.82 Long term (current) use of aspirin; Z79.891 Long term (current) use of opiate analgesic; Z79.899 Other long term (current) drug therapy; I25.2 Old myocardial infarction; Z87.891 Personal history of nicotine dependence; Z95.5 Presence of coronary angioplasty implant and graft
CPT/HCPCS: 71045; 80048; 84484; 85025; 85610; 93005; 96374; 96375; 96376; 99285; J7030; A4216; J2405

== ENCOUNTER 2020-02-02 23:01 | Emergency (ER) | payer MEDICARE, MEDICAID, SELFPAY ==
[2019-02-14 09:19] VITALS: BMI 28.3
[2019-12-26 13:50] VITALS: BMI 30.9
[2020-02-02 23:02] VITALS: BP 138/92; PULSE 100; RESP 15; TEMP 37.1; O2SAT 98; BMI 30.1
--- NOTE | 2020-02-02 23:23 | ED.DCSUM_ITS ---
History of Present Illness Chief Complaint: Back Informant: Patient Narrative: Patient presents with left-sided back pain this is chronic and recurrent apparently he stepped out of a pontoon boat the wrong way and twisted his back. He is in pain management for this back pain he gets MS Contin and Dilaudid for his pain on a regular basis he took those medications but he tells me these are not helping at this time. The pain does not radiate to his legs he has no bowel or bladder compromise he has no weakness or paresthesias. He has normal perirectal sensation and no saddle anesthesia. Past Medical History - Allergies and Home Meds Allergies/Adverse Reactions: Allergies pregabalin [From Lyrica] Adverse Reaction (Verified 02/02/20 23:05) Itching Primary Care Physician: Michael De Jesus MD [Primary Care Provider] - Past Medical History: - - Prior medical problems were reviewed and includes diabetes and chronic back pain. Surgical History: - - Lumbar back surgery, bilateral knee arthroscopic surgery with 3 left and one right surgery performed. Smoking Status: Former smoker - Family History Maternal Family History: Family History (Last Reviewed 08/28/19 @ 13:09 by Trina Garcia) Father Esophageal cancer Diabetes Myocardial infarction Mother Arthritis Diabetes Family History: Reports: - - Patient notes a maternal family history of HD. Paternal Family History: Family History (Last Reviewed 08/28/19 @ 13:09 by Trina Garcia) Father Esophageal cancer Diabetes Myocardial infarction Mother Arthritis Diabetes Family History: Reports: - - Father with a history of esophageal cancer. Review of Systems General: Denies: Fever Cardiovascular: Denies: Chest pain Respiratory: Denies: Dyspnea, Cough Gastrointestinal: Reports: Nausea. Denies: Abdominal pain, Vomiting Musculoskeletal: Reports: Back pain Skin: Denies: Rash Neurological: Denies: Headache, Weakness, Parasthesia Endocrine: Denies: Polyuria Hematologic: Denies: Easy bruising Physical Exam Vital Signs/Narrative: Vital Signs Temp Pulse Resp BP Pulse Ox 02/02/20 23:02 98.7 F 100 15 138/92 H 98 General: Well nourished, Well developed ENT: Moist mucous membranes, No rhinorrhea Cardiovascular: Regular rate, Regular rhythm Respiratory: No distress Abdomen: Soft, Nontender Back: - - Left paraspinal tenderness, no midline pain Extremities: No edema. Negative for: Tenderness Skin: Normal color Neurological: Alert, Normal Strength, Normal Sensation, - - nl patellar and achiles refelx, neg straight leg pain Psychological: Normal Mood Diagnostic/Tx/Re-eval - Medical Decision Making Patient has chronic recurrent back pain. He has no red flags he has a normal neurological exam. I will treat him with analgesia and muscle relaxants. ED Disposition - Plan for ED Patient: Disposition: Home or Assisted Living Diagnosis: Back pain Instructions: ED LUMBAR SPRAIN/STRAIN Prescriptions: Tizanidine HCl 4 mg PO TID #16 tab Transmission Status: Pending to [id number] Referrals: Michael De Jesus MD [Primary Care Provider] - 3-5 Days
[2020-02-02] MEDS: HYDROmorphone 1 MG/ML Syringe 2 MG IM (23:32)
[2020-02-02] MEDS: Orphenadrine 60 MG/2 ML Ampul IM (23:34)
[2020-02-03] MEDS: Ondansetron 4 MG/2 ML Vial IM
[2020-02-03 00:30] VITALS: BP 130/88; PULSE 98; RESP 16; O2SAT 94
== END 2020-02-03 00:31 | disposition home or self-care (01) ==
LOC: ED 23:43
PROVIDERS: Emergency Provider Emergency Medicine; PCP Internal Medicine
DX: M54.9 Dorsalgia, unspecified (principal); G89.29 Other chronic pain; E11.9 Type 2 diabetes mellitus without complications; Z79.84 Long term (current) use of oral hypoglycemic drugs; Z79.02 Long term (current) use of antithrombotics/antiplatelets; Z79.82 Long term (current) use of aspirin; Z79.899 Other long term (current) drug therapy; Z87.891 Personal history of nicotine dependence
CPT/HCPCS: 96372; 99282; J2405

== ENCOUNTER 2020-03-27 04:13 | Emergency (ER) | payer MEDICARE, MEDICAID, SELFPAY ==
[2019-02-14 09:19] VITALS: BMI 28.3
[2020-02-28 10:46] VITALS: BMI 30.7
[2020-03-27 04:15] VITALS: BP 155/78; PULSE 89; RESP 16; TEMP 36.6; O2SAT 99; BMI 28.8
--- NOTE | 2020-03-27 04:31 | RAD_ITS ---
STUDY: X-RAY - LUMBAR SPINE REASON FOR EXAM: Male, 49 years old. C/O CHRONIC LBP -- INCREASE IN PAIN X 5 DAYS -- HAVING WEAKNESS IN LT LEG TECHNIQUE: 3 view(s) of the lumbar spine were obtained. COMPARISON: CT abdomen pelvis sagittal reformation 02/17/2016 FINDINGS: There is straightening of the normal lordotic curve, a nonspecific finding, which may be due to positioning or which might be due to muscle spasm. There is no substantial scoliosis. There is a normal alignment of the vertebrae. Mild decreased anterior vertebral body height T12, T11 and T10 with small Schmorl''s node along the superior and inferior endplates without change. Normal vertebral bodies and endplates. Normal disc space heights. Facet prominence L3-S1. The soft tissue structures are unremarkable. RAD/Lumbar Spine 2 or 3 Views IMPRESSION: Mild degenerative changes. There is no acute displaced fracture or dislocation. There is no significant interval change. Electronically Signed: Chloe Stevenson MD at 5:17 EDT , Service support ,
--- NOTE | 2020-03-27 04:33 | ED.VIS.GEN ---
History of Present Illness Chief Complaint: Back Informant: Patient Narrative: 49-year-old male with history of chronic back pain and pain management presenting with acute exacerbation of back pain. He states initially he exacerbated this about a month and a half ago after stepping off a pontoon boat. He came to [facility] ED and was treated. Since that time he states he still has pain. He has not seen his pain management doctor. He has not made any ointments with his primary caregiver. He returns today because he states that the pain is getting worse. He has no loss of bladder or bowel control. There is no saddle paresthesia. - Past Medical History (1) Anxiety and depression Status: Chronic (2) Benign essential HTN Status: Chronic (3) Chronic pain Status: Chronic (4) DM2 (diabetes mellitus, type 2) Status: Chronic Past Medical History - Allergies and Home Meds Allergies/Adverse Reactions: Allergies pregabalin [From Lyrica] Adverse Reaction (Verified 03/27/20 04:24) Itching Primary Care Physician: Michael De Jesus MD [Primary Care Provider] - Prior records reviewed: Yes Past Medical History: - - Reviewed and problem list Surgical History: - - Lumbar back surgery, bilateral knee arthroscopic surgery with 3 left and one right surgery performed. Lives: Spouse/ Significant Other Smoking Status: Former smoker Alcohol: None Drugs: None - Family History Maternal Family History: Family History (Last Reviewed 02/27/20 @ 08:48 by Trina Garcia) Father Esophageal cancer Diabetes Myocardial infarction Mother Arthritis Diabetes Family History: Reports: - - Patient notes a maternal family history of HD. Paternal Family History: Family History (Last Reviewed 02/27/20 @ 08:48 by Trina Garcia) Father Esophageal cancer Diabetes Myocardial infarction Mother Arthritis Diabetes Family History: Reports: - - Father with a history of esophageal cancer. Review of Systems General: Denies: Chills, Fever, Sweats Eyes: Denies: Visual changes - bilaterally, Diplopia ENT: Denies: Rhinorrhea, Sore throat Cardiovascular: Denies: Chest pain, Palpitations Respiratory: Denies: Dyspnea, Cough, Dyspnea on exertion Gastrointestinal: Denies: Abdominal pain, Nausea, Vomiting, Diarrhea, Melena, Hematochezia Genitourinary: Denies: Dysuria, Hematuria, Frequency Musculoskeletal: Reports: Back pain Skin: Denies: Rash, Wounds Neurological: Denies: Headache, Weakness, Numbness Physical Exam Vital Signs/Narrative: Vital Signs Temp Pulse Resp BP Pulse Ox 03/27/20 04:15 97.8 F 89 16 155/78 H 99 Inital Vital Signs reviewed: Yes General: Well nourished, No Acute Distress Head: Normocephalic, Atraumatic ENT: Moist mucous membranes, No rhinorrhea Cardiovascular: Regular rate, Regular rhythm Respiratory: No distress, CTA bilaterally Back: - - Diffuse tenderness to the lumbar paraspinal musculature bilaterally. There is pain to even the slightest touch. Rash or bruising. Skin: Normal color, No rash Neurological: Alert, Oriented x3 Psychological: Normal affect, Normal Mood Diagnostic/Tx/Re-eval - Medical Decision Making 49-year-old male presenting with back pain which is chronic but is acutely worsened since his previous injury about a month ago. Patient has not had follow-up with pain management or his primary care doctor. He does still take Dilaudid and MS Contin for back pain but he states is not helping. I did treat his pain with fentanyl in the ED. I obtained images of the lumbar spine which are normal. The patient does have an office visit scheduled for the 28 however it is a virtual visit. I recommended to the patient that they try to get into a regular office visit so that he can be examined. They will call the office today. Patient is discharged home in stable condition. Impression: 1. Acute exacerbation of chronic back pain ED Disposition - Plan for ED Patient: Disposition: Home or Assisted Living Instructions: ED LUMBAR SPRAIN/STRAIN Referrals: Michael De Jesus MD [Primary Care Provider] -
[2020-03-27] MEDS: fentaNYL 100 MCG/2 ML Ampul IV (04:40)
[2020-03-27] MEDS: fentaNYL 100 MCG/2 ML Ampul 50 MCG IV (05:40)
[2020-03-27 06:10] VITALS: RESP 16
== END 2020-03-27 06:10 | disposition home or self-care (01) ==
PROVIDERS: Emergency Provider Student in an Organized Health Care Education/Training Program; PCP Internal Medicine
DX: M54.5 Low back pain (principal); G89.29 Other chronic pain; E11.9 Type 2 diabetes mellitus without complications; I10 Essential (primary) hypertension; F32.9 Major depressive disorder, single episode, unspecified; F41.9 Anxiety disorder, unspecified; Z79.84 Long term (current) use of oral hypoglycemic drugs; Z79.82 Long term (current) use of aspirin; Z79.899 Other long term (current) drug therapy; Z87.891 Personal history of nicotine dependence
CPT/HCPCS: 72100; 96372; 96374; 96376; 99283; A4216

== ENCOUNTER → 2020-04-11 15:35 | Outpatient (CLI) | payer MEDICARE, SELFPAY ==
[2019-02-14 09:19] VITALS: BMI 28.3
[2020-03-27 04:15] VITALS: BMI 28.8
[2020-04-10 17:25] LABS: AST(SGOT) 9 U/L (15-37); Alanine Aminotransfer ALT/SGPT 23 U/L (16-61); Albumin, Serum 3.7 g/dL (3.2-5.0); Alkaline Phosphatase 78 U/L (45-117); Anion Gap 8 (5-15); BUN 12 mg/dL (7-18); BUN/Creat Ratio 10.4 RATIO (10-20); Calcium,Total 9.2 mg/dL (8.5-10.1); Chloride 103 mmol/L (98-107); Creatinine, Serum 1.15 mg/dL (0.70-1.30); EST Glomerular Filtration Rate 72 mL/min (>60); Est Glom Filt Rate - Afr Amer 87 mL/min (>60); Globulin 3.7 g/dL (2.2-4.2); Glucose 292 mg/dL (74-106); Potassium 3.9 mmol/L (3.5-5.1); Protein, Total 7.4 g/dL (6.4-8.2); Sodium Level 135 mmol/L (136-145)
--- NOTE | 2020-04-11 15:47 | MRI_ITS ---
STUDY: MRI LUMBAR SPINE WITH AND WITHOUT CONTRAST REASON FOR EXAM: Male, 49 years old. lumbar disc disease, radiculopathy, left leg pain, lbp, hx prior surgery 2009 TECHNIQUE: Standardized fat and water weighted pulse sequences were obtained in the sagittal and axial planes. IV Dotarem 18ml was administered for the contrast portion of the examination. COMPARISON: 08/26/2009 FINDINGS: T12-L1: Normal endplates. Normal disc height, hydration and morphology. Normal bilateral facet joints. Normal central canal and bilateral lateral recesses. Normal bilateral intervertebral neural foramina. Normal lumbar lordosis. There is no substantial scoliosis. Normal conus medullaris that terminates at the T12. L1-2: Normal endplates. Normal disc height, hydration and morphology. Normal bilateral facet joints. Normal central canal and bilateral lateral recesses. Normal bilateral intervertebral neural foramina. L2-3: No change in the mild broad disc protrusion and large left foraminal protrusion which produces mild spinal stenosis and moderate left neural foraminal stenosis with abutment of the left L2 nerve root laterally. L3-4: Disc desiccation but no disc protrusion, spinal stenosis, or neural foraminal stenosis. L4-5: Status post right laminectomy. Mild bilateral facet hypertrophy with fluid in the facet joints consistent with instability. No change in the 2 mm retrolisthesis of L4 on L5 with a mild broad disc protrusion which produces mild spinal stenosis and moderate bilateral neural foraminal stenosis with abutment of the exiting nerve roots. There is also a left foraminal protrusion producing severe left neural foraminal stenosis with effacement the left L4 nerve root.. L5-S1: Normal endplates. Normal disc height, hydration and morphology. Normal bilateral facet joints. Normal central canal and bilateral lateral recesses. Normal bilateral intervertebral neural foramina. Normal visualized sacral ala. Normal visualized paraspinous soft tissue structures. There is no demonstrated abnormal enhancement. MRI/Spine Lumbar W/WO Contrast IMPRESSION: Multilevel degenerative changes, as described above. Electronically Signed: Golden Sanchez MD at 17:55 EDT Tel , Service support ,
== END ==
PROVIDERS: PCP Internal Medicine; Referring Provider Anesthesiology Pain Medicine; Visit Provider Anesthesiology Pain Medicine
DX: M51.16 Intervertebral disc disorders with radiculopathy, lumbar region (principal); M51.26 Other intervertebral disc displacement, lumbar region; M15.9 Polyosteoarthritis, unspecified; G89.4 Chronic pain syndrome; R94.4 Abnormal results of kidney function studies; Z79.899 Other long term (current) drug therapy
CPT/HCPCS: 36415; 72158; 80053; A9575

== ENCOUNTER 2020-09-07 19:17 | Emergency (ER) | payer MEDICARE, MEDICAID, SELFPAY ==
[2019-02-14 09:19] VITALS: BMI 28.3
[2020-09-07 19:18] VITALS: BP 148/89; PULSE 89; RESP 15; TEMP 36.8; O2SAT 97; BMI 31.2
[2020-09-07] MEDS: Lidocaine 1% (20 ml mdv) 20 ML Vial INFILT (19:41)
--- NOTE | 2020-09-07 19:47 | ED.VISSUMM ---
- ER Visit Summary Date of Service: 09/07/20 Chief Complaint: [Soft tissue swelling to posterior neck] History of Present Illness: The patient is a 49 M [presents to the emergency department with redness and swelling to the back of his neck that initially started about 3 days ago. Patient denies any fever. He is not had any need for incision and drainage of other abscesses other than he had a cyst on his back years ago. Patient has history of coronary artery disease, type 2 diabetes, hypertension, high cholesterol, paroxysmal A. fib, anxiety, and depression.] Physical Examination: [HEENT-PERRLA, EOMI. Cranial nerves II through XII grossly intact. TMs clear. Mucous membranes moist. No adenopathy. Valuation of the posterior aspect of the neck reveals a soft tissue swelling measuring approximately 4 cm. The area is indurated and firm and tender to palpation. There is a central opening however no real drainage is able to be expressed from it. The area is tender to palpation. Cardiovascular-regular rate and rhythm without murmur or ectopy Lungs-clear to auscultation, chest wall stable without crepitus or subcu emphysema Abdomen-normoactive bowel sounds, soft, nontender, no rebound or rigidity, no peritoneal signs. Extremities-intact ?4, normal range of motion, normal pulses, atraumatic] Test Results: [None indicated] Emergency Department Course and Treatment: [Patient was offered incision and drainage of suspected abscess to which she agreed. Area of the skin was cleansed with alcohol and locally anesthetized using 1% lidocaine total of 10 cc. Using an 11 blade a 2 cm incision was made horizontally across the suspected abscess however only blood returned. I undermined the soft tissues with curved hemostats and irrigated the cavity with saline. A small gauze wick was placed within the cavity and a clean dressing was applied. Patient was started on Keflex and Bactrim in the emergency department. Patient was given oxycodone for pain.] Treatment Plan: [Patient on chronic pain meds at home and has Dilaudid for pain at home therefore no other pain meds will be given for home. Patient will be started on Keflex and Bactrim. Patient will be referred to general surgery occupational therapy department chair for follow-up.] Disposition: [Discharged home in stable condition] Impression: [Soft tissue abscess to posterior neck with incision and drainage Cellulitis posterior neck] This note was generated with Dragon dictation software. It may contain incorrect words, spelling, and punctuation that were not noted in review of the chart prior to signing ED Disposition - Plan for ED Patient: Referrals: Michael De Jesus MD [Primary Care Provider] -
--- NOTE | 2020-09-07 19:50 | ED.DEP ---
ED Disposition - Plan for ED Patient: Instructions: ED Abscess Incision And Drainage Prescriptions: Smz/Tmp Ds [Bactrim Ds] 1 tab PO BID #20 tab Transmission Status: Pending to [facility] [address] [facility] Cephalexin [Keflex] 500 mg PO Q6 #40 cap Transmission Status: Pending to [id number] Referrals: Michael De Jesus MD [Primary Care Provider] - Jay Gale MD [STAFF PHYSICIAN] - 3-5 Days
[2020-09-07] MEDS: Smz/Tmp Ds Tablet 1 TABLET PO (20:02)
[2020-09-07] MEDS: Cephalexin 250 MG Capsule 500 MG PO (20:02)
[2020-09-07] MEDS: oxyCODONE 5 MG Tablet 10 MG PO (20:02)
== END 2020-09-07 20:29 | disposition home or self-care (01) ==
PROVIDERS: Emergency Provider Emergency Medicine; PCP Internal Medicine
DX: L02.11 Cutaneous abscess of neck (principal); L03.221 Cellulitis of neck; I25.10 Atherosclerotic heart disease of native coronary artery without angina pectoris; I48.0 Paroxysmal atrial fibrillation; E11.9 Type 2 diabetes mellitus without complications; I10 Essential (primary) hypertension; E78.00 Pure hypercholesterolemia, unspecified; K21.9 Gastro-esophageal reflux disease without esophagitis; Z79.84 Long term (current) use of oral hypoglycemic drugs; Z79.82 Long term (current) use of aspirin; Z79.899 Other long term (current) drug therapy
CPT/HCPCS: 10060; 99283

== ENCOUNTER → 2020-09-27 09:48 | Outpatient (CLI) | payer MEDICARE, MEDICAID, SELFPAY ==
[2019-02-14 09:19] VITALS: BMI 28.3
--- NOTE | 2020-09-30 09:04 | HP_ITS ---
Intake Intake Visit Reasons: 2WK F/U ABSCESS Chief Complaint: posterior neck abscess f/u [employer] Required: No Is patient in pain?: No Allergies pregabalin [From Lyrica] Adverse Reaction (Verified 09/27/20 10:52) Itching Medications Hydromorphone HCl [Dilaudid] 4 mg PO Q6H 02/17/16 [History Confirmed 09/27/20] Sertraline HCl [Zoloft] 200 mg PO QHS 02/17/16 [History Confirmed 09/27/20] Tiagabine HCl [Gabitril] 4 mg PO DAILY 02/17/16 [History Confirmed 09/27/20] Multivitamin with Minerals [Multiple Vitamin] 1 ea PO DAILY 09/14/18 [History Confirmed 09/27/20] aripiprazole 2 mg tablet 2 mg PO QHS tab 09/22/18 [History Confirmed 09/27/20] duloxetine 60 mg capsule,delayed release 120 mg PO DAILY cap 09/22/18 [History Confirmed 09/27/20] morphine 30 mg capsule,extended release 24 hr multiphase 30 mg PO BID 01/30/19 [History Confirmed 09/27/20] Bupropion HCl [Wellbutrin Xl] 300 mg PO DAILY 02/10/19 [History Confirmed 09/27/20] nitroglycerin 0.4 mg sublingual tablet 0.4 mg SL Q5M PRN #25 tab 06/14/19 [Rx Confirmed 09/27/20] aspirin 81 mg tablet,delayed release 81 mg PO DAILY #90 tab 08/28/19 [Rx Confirmed 09/27/20] carvedilol 3.125 mg tablet 3.125 mg PO BID #180 tab 08/28/19 [Rx Confirmed 09/27/20] blood sugar diagnostic See Rx Instructions .ROUTE .MEDSUPPLY #100 ea 12/26/19 [Rx Confirmed 09/27/20] blood-glucose meter See Rx Instructions .ROUTE .MEDSUPPLY #1 ea 12/26/19 [Rx Confirmed 09/27/20] empagliflozin 25 mg tablet 25 mg PO QAM #90 tab 12/26/19 [Rx Confirmed 09/27/20] lancets 28 gauge See Rx Instructions .ROUTE .MEDSUPPLY #200 ea 12/26/19 [Rx Confirmed 09/27/20] omeprazole 20 mg capsule,delayed release 20 mg PO DAILY #90 cap 12/26/19 [Rx Confirmed 09/27/20] Tizanidine HCl 4 mg PO TID #16 tab 02/02/20 [Rx Confirmed 09/27/20] atorvastatin 80 mg tablet 80 mg PO DAILY #90 tab 04/22/20 [Rx Confirmed 09/27/20] lisinopril 10 mg tablet 10 mg PO DAILY #90 tab 04/22/20 [Rx Confirmed 09/27/20] fluticasone propionate 50 mcg/actuation nasal spray,suspension 2 spray INTRANASAL DAILY #15.8 ml 04/24/20 [Rx Confirmed 09/27/20] glimepiride 2 mg tablet 2 mg PO DAILY #90 tab 06/11/20 [Rx Confirmed 09/27/20] ticagrelor 90 mg tablet 90 mg PO BID #180 tab 07/22/20 [Rx Confirmed 09/27/20] sildenafil 100 mg tablet 50 mg PO DAILY PRN #20 tab 07/30/20 [Rx Confirmed 09/27/20] metformin 500 mg tablet 1,000 mg PO BID #360 tab 09/06/20 [Rx Confirmed 09/27/20] clindamycin HCl 300 mg capsule 300 mg PO Q8H #14 cap 09/27/20 [Rx] PFSH Medical History Paroxysmal atrial fibrillation (Chronic) History of non-ST elevation myocardial infarction (NSTEMI) (Chronic 09/14/18) Unstable angina (Resolved) Tobacco use (Chronic) Benign essential HTN (Chronic) Chronic pain (Chronic) DM2 (diabetes mellitus, type 2) (Chronic) HLD (hyperlipidemia) (Chronic) Abscess of neck (Acute ~09/2020) Herniated disc (Chronic) Surgical History Stented coronary artery (Chronic 02/13/19) History of arthroscopic knee surgery (Acute) History of back surgery (Acute) H/O arthroscopic knee surgery (Inactive) s/p back (Inactive) Family History Father Esophageal cancer Diabetes Myocardial infarction Mother Arthritis Diabetes Social History (Updated 09/27/20 @ 10:[address] Jay Gale MD) Smoking Status: Former smoker quit date: 09/13/18 Tobacco: How many years used: 30 alcohol intake: current alcohol intake frequency: a few times a week Alcohol type: beer substance use type: does not use what type of physical activity do you participate in: none HPI HPI HPI: REJI CORTES is a 49 M who presents to the office today for HPI HPI Surgical H&P: Yes HPI: REJI CORTES is a 49 M who presents to the office today for neck abscess x2. The patient has been treating his neck abscess on the right for the past few weeks. This area still has some induration and cellulitis but now he has a new abscess on the left side of the neck. Patient is not having drainage out of either area. ROS General General: No weight change or fatigue Cardio Cardiovascular: No murmur, pacemaker, heart disease, atrial fibrillation, high blood pressure, heart attack, heart stent, palpitations, shortness of breat with exertion or chest pain Psych Psychiatric: No depression or anxiety Resp Respiratory: No shortness of breath, No sleep apnea, No cough, No COPD, No asthma, No emphysema, No wheezing Gastro Gastrointestinal: No abdominal pain, No nausea or vomiting, No diarrhea, No constipation, No blood in stool, No acid reflux, No hemorrhoids, No ulcers, No gallbladder problem, No black,tarry stools Tyrell Hematologic: No blood thinners Exam Const General: cooperative Orientation: alert, oriented x3 Neck Other: Patient has 2 posterior neck abscesses with erythema Resp Effort & Inspection: normal respiratory effort Auscultation: clear to auscultation bilaterally Cardio Rate: regular rate Rhythm: regular rhythm Heart Sounds: no murmurs GI Inspection: non-distended Palpation: soft, nontender Assessment & Plan Problems 1. Neck abscess L02.11 Plan The patient has 2 neck abscesses in the posterior region. These have not resolved with conservative treatment and I recommend incision and debridement in the operating room. I have prescribed a course of clindamycin and I will see him back next week for debridement in the operating room. I discussed the risks of bleeding and infection with the patient and I discussed possible packing of the wound. The patient understands the risks and will proceed with incision and debridement of these 2 abscesses in the operating room. Jay Gale MD Pager: [facility] [address] [place] [address], [address] [place] [address] Office: Medications New: clindamycin HCl 300 mg PO Q8H 14 caps 0RF Coding Level of Care Code Off vis,est,level 3 Diagnoses Neck abscess L02.11 I have seen and examined the patient and there are no changes.
[2020-09-30 12:46] LABS: Bedside Glucose 230 mg/dL (70-110)
[2020-09-30 12:54] VITALS: BP 136/83; PULSE 75; RESP 16; TEMP 36.7; O2SAT 98; BMI 31.6
== END ==
LOC: AC 09-30 13:23 → PAT 11-20 09:48
PROVIDERS: PCP Internal Medicine; Referring Provider Surgery; Visit Provider Surgery
DX: Z01.812 Encounter for preprocedural laboratory examination (principal); Z20.822 Contact with and (suspected) exposure to COVID-19; L02.11 Cutaneous abscess of neck; I48.0 Paroxysmal atrial fibrillation; E11.9 Type 2 diabetes mellitus without complications; I10 Essential (primary) hypertension; E78.5 Hyperlipidemia, unspecified; Z79.82 Long term (current) use of aspirin; Z79.84 Long term (current) use of oral hypoglycemic drugs; Z79.899 Other long term (current) drug therapy; I25.2 Old myocardial infarction; Z87.891 Personal history of nicotine dependence; Z95.5 Presence of coronary angioplasty implant and graft
CPT/HCPCS: 82962; 87426; C9803; J7120

== ENCOUNTER → 2020-10-07 12:32 | Outpatient (CLI) | payer MEDICARE, MEDICAID, SELFPAY ==
[2019-02-14 09:19] VITALS: BMI 28.3
[2020-09-30 12:54] VITALS: BMI 31.6
[2020-10-07 15:53] LABS: HIV - WCH Non-Reactive (Nonreactive)
[2020-10-09 07:07] LABS: HEPATITIS B SURFACE AG Negative (Negative); Hepatitis A AB, Total Negative (Negative); Hepatitis A IgM Antibody Negative (Negative); Hepatitis B Core AB IgM Negative (Negative); Hepatitis B Core Ab Total Negative (Negative); Hepatitis C Ab <0.1 s/co ratio (0.0-0.9)
[2020-10-09 10:06] LABS: Hep B Surface Antibodies Non Reactive (.)
== END ==
PROVIDERS: PCP Internal Medicine; Referring Provider Physician Assistant; Visit Provider Physician Assistant
DX: L08.9 Local infection of the skin and subcutaneous tissue, unspecified (principal)
CPT/HCPCS: 36415; 86703; 86704; 86705; 86706; 86708; 86709; 86803; 87070; 87077; 87186; 87205; 87340

== ENCOUNTER → 2020-10-15 | Outpatient (CLI) | payer MEDICARE, MEDICAID, SELFPAY ==
[2019-02-14 09:19] VITALS: BMI 28.3
== END | disposition home or self-care (01) ==
PROVIDERS: PCP Internal Medicine; Visit Provider Dermatology
DX: A49.02 Methicillin resistant Staphylococcus aureus infection, unspecified site (principal)
CPT/HCPCS: 87101

== ENCOUNTER → 2020-12-19 | Outpatient (CLI) | payer MEDICARE, MEDICAID, SELFPAY ==
[2019-02-14 09:19] VITALS: BMI 28.3
== END | disposition home or self-care (01) ==
PROVIDERS: PCP Internal Medicine; Referring Provider Physician Assistant; Visit Provider Physician Assistant
DX: A49.02 Methicillin resistant Staphylococcus aureus infection, unspecified site (principal)
CPT/HCPCS: 87070; 87077; 87186; 87205

== ENCOUNTER → 2021-01-23 11:29 | Outpatient (CLI) | payer MEDICARE, MEDICAID, SELFPAY ==
[2019-02-14 09:19] VITALS: BMI 28.3
[2021-01-23 10:57] VITALS: BMI 30.4
[2021-01-23 12:31] LABS: Absolute Lymphocyte Count 2.53 X10^3/uL (0.83-4.51); Absolute Neutrophil Count 6.6 X10^3/uL (2.0-7.7); Basophil# 0.07 X10^3/uL; Basophil% 0.7 % (0-1); Eosinophils% 1.9 % (0-5); Hematocrit 51.1 % (40-54); Hemoglobin 16.8 g/dL (13.0-16.5); Lymphocyte # 2.53 X10^3/ul (0.83-4.51); Lymphocyte % 24.5 % (19-41); Mean Corp Hgb Conc 32.9 g/dL (32-36); Mean Corpuscular Hgb 29.1 pg (27.0-32.0); Mean Corpuscular Volume 88.4 fL (80-94); Mean Platelet Vol. 11.2 fl (6.2-12.0); Monocyte# 0.87 X10^3/uL; Monocyte% 8.4 % (0-10); NRBC Flagged by Analyzer 0 % (0-5); Neutrophil # 6.57 X10^3/uL (2.7-7.7); Neutrophil % 63.7 % (47-70); Platelet Count 179 K/mm3 (150-450); RBC Distribution Width CV 13.6 % (11.6-14.6); RBC Distribution Width SD 43.9 fl (35.1-43.9); Red Blood Count 5.78 M/mm3 (4.6-6.2); White Blood Count 10.3 K/mm3 (4.4-11.0)
[2021-01-23 12:43] LABS: Microalbumin:Creatinine Ratio 8.8 mg/g CRE (<30 mg/g CRE)
[2021-01-23 13:20] LABS: ALB/GLOB Ratio 1.1 RATIO (0.9-2.4); AST(SGOT) 21 U/L (15-37); Alanine Aminotransfer ALT/SGPT 50 U/L (16-61); Alkaline Phosphatase 78 U/L (45-117); Anion Gap 6 (5-15); BUN 12 mg/dL (7-18); BUN/Creat Ratio 11.3 RATIO (10-20); Chloride 103 mmol/L (98-107); Cholesterol 200 mg/dL (200); Creatinine, Serum 1.06 mg/dL (0.70-1.30); EST Glomerular Filtration Rate 79 mL/min (>60); Est Glom Filt Rate - Afr Amer 95 mL/min (>60); Globulin 3.7 g/dL (2.2-4.2); Glucose 200 mg/dL (74-106); High Density Lipoprotein 32 mg/dL; Potassium 4.2 mmol/L (3.5-5.1); Protein, Total 7.7 g/dL (6.4-8.2); Sodium Level 135 mmol/L (136-145); Thyroid Stim Hormone (TSH) 1.22 uIU/mL (0.358-3.74); Triglycerides 687 mg/dL
== END ==
PROVIDERS: PCP Internal Medicine; Referring Provider Nurse Practitioner Family; Visit Provider Nurse Practitioner Family
DX: I10 Essential (primary) hypertension (principal); E11.8 Type 2 diabetes mellitus with unspecified complications; F32.9 Major depressive disorder, single episode, unspecified; F41.9 Anxiety disorder, unspecified
CPT/HCPCS: 36415; 80053; 80061; 82043; 82570; 84443; 85025

== ENCOUNTER 2021-03-25 22:13 | Emergency (ER) | payer MEDICARE, MEDICAID, SELFPAY ==
[2019-02-14 09:19] VITALS: BMI 28.3
[2021-03-25 22:14] VITALS: BP 133/92; PULSE 88; RESP 15; TEMP 36.4; O2SAT 99; BMI 29.4
--- NOTE | 2021-03-25 22:29 | EKG12_ITS ---
Test Reason : NUMB/TINGLING Blood Pressure : / mmHG Vent. Rate : 081 BPM Atrial Rate : 081 BPM P-R Int : 150 ms QRS Dur : 088 ms QT Int : 390 ms P-R-T Axes : 048 003 052 degrees QTc Int : 453 ms Sinus rhythm with Premature atrial complexes Low voltage QRS (Limb Leads) Confirmed by YULI LEGGETT, DORA ([id number]), sports editor ITALIA JORDAN ([id number]) on 03/28/2021 9:56:55 AM Referred By: MAYDA Confirmed By:DORA ROLDAN MD
[2021-03-25 22:37] VITALS: O2SAT 98
[2021-03-25] MEDS: Ondansetron 4 MG/2 ML Vial IV (22:38)
[2021-03-25] MEDS: Aspirin 81 MG TAB.CHEW 162 MG PO (22:38)
[2021-03-25] MEDS: Morphine 4 MG/ML Syringe IV (22:40)
[2021-03-25 22:46] LABS: Absolute Lymphocyte Count 4.22 X10^3/uL (0.83-4.51); Absolute Neutrophil Count 7.3 X10^3/uL (2.0-7.7); Basophil# 0.08 X10^3/uL; Basophil% 0.6 % (0-1); Eosinophil# 0.27 X10^3/uL; Eosinophils% 2.1 % (0-5); Hemoglobin 16.6 g/dL (13.0-16.5); Lymphocyte # 4.22 X10^3/ul (0.83-4.51); Lymphocyte % 32.6 % (19-41); Mean Corp Hgb Conc 32.5 g/dL (32-36); Mean Corpuscular Hgb 29.5 pg (27.0-32.0); Mean Corpuscular Volume 90.7 fL (80-94); Mean Platelet Vol. 10.7 fl (6.2-12.0); Monocyte# 1.05 X10^3/uL; Monocyte% 8.1 % (0-10); NRBC Flagged by Analyzer 0 % (0-5); Neutrophil # 7.25 X10^3/uL (2.7-7.7); Neutrophil % 56.1 % (47-70); Platelet Count 226 K/mm3 (150-450); RBC Distribution Width SD 43.4 fl (35.1-43.9); Red Blood Count 5.62 M/mm3 (4.6-6.2); White Blood Count 12.9 K/mm3 (4.4-11.0)
--- NOTE | 2021-03-25 22:50 | RAD_ITS ---
INDICATION: chest pain EXAMINATION/TECHNIQUE: X-RAY - XR Chest 2 Views COMPARISON: 10/02/2019. FINDINGS: The lungs are clear. The cardiomediastinal silhouette is unremarkable. No pleural effusion or pneumothorax. No acute osseous abnormalities. RAD/Chest PA and Lateral IMPRESSION: No acute radiographic abnormalities. Electronically Signed: Keven Eric MD at 23:09 EDT Tel , Service support ,
[2021-03-25 22:55] LABS: Anion Gap 5 (5-15); BUN 6 mg/dL (7-18); BUN/Creat Ratio 6.8 RATIO (10-20); Calcium,Total 9.5 mg/dL (8.5-10.1); Chloride 105 mmol/L (98-107); Creatinine, Serum 0.88 mg/dL (0.70-1.30); EST Glomerular Filtration Rate 98 mL/min (>60); Est Glom Filt Rate - Afr Amer 119 mL/min (>60); Estimated Creatinine Clearance 104.85 ml/min; Glucose 151 mg/dL (74-106); Sodium Level 139 mmol/L (136-145); Troponin-I HS 12 pg/mL (3.0-78.0)
--- NOTE | 2021-03-25 23:00 | EDS_ITS ---
HPI History of Present Illness Chief Complaint: Numb/Ting Narrative Narrative: Patient presenting for evaluation secondary to chest pain. Patient states that he has an underlying history of coronary artery disease, underwent cardiac catheterization and stenting about 2 years ago. Patient states that he was at rest in bed about an hour prior to arrival and had an onset of chest discomfort that felt similar to when he had his heart attack 2 years ago. Reports that it was just an abnormal heavy type feeling in his left arm, numbness that shot up to the left side of his face, and some pain behind his left shoulder blade. Does report that he was somewhat sweaty and short of breath with this. He states that he took 6 nitroglycerin which did not seem to alleviate his symptoms. Does report that he has been having increased fatigue recently, but denies that he has been having any sort of exertional dyspnea or chest pain. No recent illnesses such as fever cough nausea vomiting or diarrhea. Patient states that he has been compliant with his medications, he has follow-up with his director of outpatient services on Wednesday this week. Review of systems otherwise negative. [facility] Medical History (Updated 03/26/21 @ 01:[address] Georges Orellana MD) Abscess of neck (~09/2020) Benign essential HTN Chronic pain DM2 (diabetes mellitus, type 2) Herniated disc History of non-ST elevation myocardial infarction (NSTEMI) (09/14/18) HLD (hyperlipidemia) Paroxysmal atrial fibrillation Tobacco use Unstable angina Home Medications hydromorphone 4 mg PO Q6H 02/17/16 [History Last Taken 02/10/19] sertraline 200 mg PO QHS 02/17/16 [History Last Taken 02/09/19] tiagabine 4 mg PO DAILY 02/17/16 [History Last Taken 09/30/20] multivitamin with minerals 1 each PO DAILY 09/14/18 [History Last Taken 02/10/19] aripiprazole 2 mg tablet 2 mg PO QHS tablet 09/22/18 [History Last Taken 02/09/19] duloxetine 60 mg capsule,delayed release 120 mg PO DAILY cap 09/22/18 [History Last Taken 02/10/19] bupropion HCl 300 mg PO DAILY 02/10/19 [History Last Taken 02/10/19] atorvastatin 80 mg tablet 80 mg PO DAILY #90 tablet 04/22/20 [Rx Last Taken Unknown] ticagrelor 90 mg tablet 90 mg PO BID #180 tablet 07/22/20 [Rx Last Taken Unknown] metformin 500 mg tablet 1,000 mg PO BID #360 tablet 09/06/20 [Rx Last Taken Unknown] morphine 30 mg PO Q12H 09/27/20 [History Last Taken 09/30/20] aspirin 81 mg tablet,delayed release 81 mg PO DAILY #90 tablet 09/30/20 [Rx Last Taken Unknown] carvedilol 3.125 mg tablet 3.125 mg PO BID #180 tablet 10/04/20 [Rx Last Taken Unknown] nitroglycerin 0.4 mg sublingual tablet 0.4 mg SL Q5M PRN #25 tablet 10/21/20 [Rx Last Taken Unknown] sildenafil 100 mg tablet 50 mg PO DAILY PRN #20 tablet 12/10/20 [Rx Last Taken Unknown] blood sugar diagnostic #100 each 01/23/21 [Rx Last Taken Unknown] blood-glucose meter #1 each 01/23/21 [Rx Last Taken Unknown] dulaglutide 1.5 mg/0.5 mL subcutaneous pen injector 1.5 mg SUBCUT QWEEK #2 ml 01/23/21 [Rx Last Taken 03/20/21] empagliflozin 25 mg tablet 25 mg PO QAM #90 tablet 01/23/21 [Rx Last Taken Unknown] fluticasone propionate 50 mcg/actuation nasal spray,suspension 2 spray INTRANASAL DAILY PRN #16 g 01/23/21 [Rx Last Taken Unknown] glimepiride 1 mg tablet 1 mg PO DAILY #90 tab 01/23/21 [Rx Last Taken Unknown] lancets 28 gauge #200 each 01/23/21 [Rx Last Taken Unknown] omeprazole 20 mg capsule,delayed release 20 mg PO DAILY #90 cap 02/17/21 [Rx Last Taken Unknown] lisinopril 10 mg tablet 10 mg PO DAILY #90 tablet 03/11/21 [Rx Last Taken Unknown] Allergy/AdvReac Type Severity Reaction Status Date / Time pregabalin [From Lyrica] AdvReac Itching Verified 01/23/21 10:57 Family History Father Esophageal cancer Diabetes Myocardial infarction Mother Arthritis Diabetes Surgical History H/O arthroscopic knee surgery History of arthroscopic knee surgery History of back surgery s/p back Stented coronary artery (02/13/19) Social History Smoking Status: Former smoker quit date: 09/13/18 Tobacco: How many years used: 30 alcohol intake: current alcohol intake frequency: a few times a week Alcohol type: beer substance use type: does not use what type of physical activity do you participate in: none ROS ROS ED Constitutional Constitutional ED: Denies fever(s) Eyes Eyes: Denies change in vision ENT ENT ED: Denies rhinorrhea or sore throat Cardiovascular Cardiovascular: Reports chest pain Respiratory/Chest Respiratory/Chest: Reports dyspnea Gastrointestinal Gastrointestinal: Denies abdominal pain, nausea or vomiting Genitourinary Genitourinary ED: Denies dysuria Musculoskeletal Musculoskeletal: Denies myalgias or neck pain Integumentary Denies rash Neurologic Neurologic: Denies headache(s), paresthesias or weakness Psychiatric Psychiatric: Denies depression Endocrine Endocrinology: Denies polydipsia or polyuria Hematologic/Lymphatic Hematologic/Lymphatic: Denies easy bleeding or easy bruising Allergic/Immunologic Allergic/Immunologic ED: Denies urticaria EXAM Physical Exam Const Vital Signs: 03/25/21 22:14 03/25/21 22:37 03/25/21 23:03 Temperature 97.6 F L Temperature Source Temporal Pulse Rate 88 Respiratory Rate 15 Respiratory Effort Normal Respiratory Pattern Normal Blood Pressure 133/92 H Blood Pressure Mean 105 Pulse Ox 99 98 Oxygen Delivery Method Room Air Room Air 03/25/21 23:30 03/26/21 01:11 Temperature Temperature Source Pulse Rate 79 85 Respiratory Rate 16 13 Respiratory Effort Respiratory Pattern Blood Pressure 127/82 H 127/84 H Blood Pressure Mean 97 98 Pulse Ox 98 95 Oxygen Delivery Method Room Air Room Air Positive well nourished and well developed General Appearance ED: well developed and NAD HEENT Reports moist mucous membranes normocephalic and atraumatic Eyes EOMs intact bilaterally Neck no lymphadenopathy, supple and no JVD Chest Wall inspection of chest normal and palpation of chest normal Chest Narrative: No evidence of vesicular rash Resp normal respiratory effort and clear to auscultation bilaterally Auscultation: Negative for rales, rhonchi or wheezes Cardio regular rate, regular rhythm, S1 normal heart sound, S2 normal heart sound and no murmurs Peripheral Pulses: radial pulses present and posterior tibial pulses present GI normal to inspection, nondistended, normoactive bowel sounds, soft to palpation and non-tender Extremity normal to inspection Extremity Narrative: Calves are supple no palpable cord General Extremety ED: Negative for edema or tenderness General Extremity: Negative for edema Neuro oriented x3 and no sensory deficits noted Sensorium / Orientation: awake and alert Psych mental status grossly normal Skin no rashes or lesions noted Skin Narrative: Slightly diaphoretic MDM MDM MDM Narrative Medical decision making narrative: Patient presented for evaluation secondary to chest pain. EKG did not demonstrate any evidence of ischemic changes. Chest x- ray by my personal review as well as radiology is negative. CBC demonstrates a leukocytosis of 12.9 with no significant shift. Chemistry was found to be unremarkable initial high-sensitivity troponin was found to be 12. Repeat high- sensitivity troponin was also found to be 12. Patient's pain at this point does not seem like it would be consistent with cardiac chest pain as he has had persistent pain throughout his stay in the emergency department and has had 2 - high-sensitivity troponins. Technically his heart score would only be 3. Patient was given reassurance, I do believe that he is stable and appropriate for discharge. Not concerned for other etiologies such as pneumonia, pulmonary embolism, aortic dissection or otherwise. Patient has follow-up with cardiology on Wednesday. He was recommended to return for worsening symptoms. Patient was discharged in stable condition. Lab Data Labs: Laboratory Results - last 24 hr 03/25/21 03/25/21 03/26/21 22:21 22:21 00:35 WBC 12.9 H RBC 5.62 Hgb 16.6 H Hct 51.0 MCV 90.7 MCH 29.5 MCHC 32.5 RDW Std Deviation 43.4 RDW Coeff of Sarahi 13.0 Plt Count 226 MPV 10.7 Immature Gran % (Auto) 0.500 Neut % (Auto) 56.1 Lymph % (Auto) 32.6 [place] % (Auto) 8.1 Eos % (Auto) 2.1 Baso % (Auto) 0.6 Absolute Neuts (auto) 7.3 Absolute Lymphs (auto) 4.22 Nucleated RBC % 0 Sodium 139 Potassium 3.0 L Chloride 105 Carbon Dioxide 29.0 Anion Gap 5 BUN 6 L Creatinine 0.88 Estim Creat Clear Calc 104.85 Est GFR (MDRD) Af Amer 119 Est GFR (MDRD) Non-Af 98 BUN/Creatinine Ratio 6.8 L Glucose 151 H Calcium 9.5 Troponin I High Sens 12 12 Radiography Diagnostic Testing: Radiology Impression Chest X-Ray 03/25/21 22:50 IMPRESSION: No acute radiographic abnormalities. Electronically Signed: Keven Eric MD at 23:09 EDT Tel , Service support , EKG Initial EKG: Attestation: I personally reviewed and interpreted this EKG as follows: (Sinus rhythm of [address] segments normal T waves, minimal T wave flattening is noted inferiorly no evidence of acute ischemic changes. PACs are noted.) Discharge Plan Triage Chief Complaint: Numb/Ting ED Provider: Georges Orellana Dx/Rx/DC Orders Clinical Impression: Chest pain Instructions: ED Chest Pain, Noncardiac Prescriptions: No Action aripiprazole [Abilify] 2 mg tablet 2 mg PO QHS RF: 0 duloxetine [Cymbalta] 60 mg capsule,delayed release(DR/EC) 120 mg PO DAILY RF: 0 Trulicity 1.5 mg/0.5 mL pen injector 1.5 mg subcut QWEEK Qty: 2 RF: 3 glimepiride 1 mg tablet 1 mg PO DAILY Qty: 90 RF: 1 (DME) blood-glucose meter [FreeStyle Lite Meter] Kit See Rx Instructions .ROUTE .MEDSUPPLY Qty: 1 RF: 0 (DME) FreeStyle Lite Strips Strip See Rx Instructions .ROUTE .MEDSUPPLY Qty: 100 RF: 3 (DME) lancets [FreeStyle Lancets] 28 gauge misc See Rx Instructions .ROUTE .MEDSUPPLY Qty: 200 RF: 3 Jardiance 25 mg tablet 25 mg PO QAM Qty: 90 RF: 3 fluticasone propionate 50 mcg/actuation spray,suspension 2 spray INTRANASAL DAILY PRN (Reason: Allergies) Qty: 16 RF: 1 sertraline 100 MG tablet 200 mg PO QHS RF: 0 tiagabine 4 MG tablet 4 mg PO DAILY RF: 0 hydromorphone 4 MG tablet 4 mg PO Q6H RF: 0 multivitamin with minerals 1 EACH tablet 1 each PO DAILY RF: 0 bupropion HCl 150 MG tablet extended release 24 hr 300 mg PO DAILY RF: 0 morphine 30 MG tablet 30 mg PO Q12H RF: 0 atorvastatin 80 mg tablet 80 mg PO DAILY Qty: 90 RF: 3 ticagrelor 90 mg tablet 90 mg PO BID Qty: 180 RF: 3 metformin 500 mg tablet 1,000 mg PO BID Qty: 360 RF: 2 aspirin 81 mg tablet,delayed release (DR/EC) 81 mg PO DAILY Qty: 90 RF: 3 carvedilol 3.125 mg tablet 3.125 mg PO BID Qty: 180 RF: 3 nitroglycerin 0.4 mg tablet, sublingual 0.4 mg SL Q5M PRN (Reason: Cardiac/Chest Pain) Qty: 25 RF: 3 sildenafil [Viagra] 100 mg tablet 50 mg PO DAILY PRN (Reason: sexual activity) Qty: 20 RF: 12 omeprazole 20 mg capsule,delayed release(DR/EC) 20 mg PO DAILY Qty: 90 RF: 3 lisinopril 10 mg tablet 10 mg PO DAILY Qty: 90 RF: 3 Primary Care Provider: Michael De Jesus Referrals: Gavin Varma MD [STAFF PHYSICIAN] - Keep [facility] appointment Michael De Jesus MD [Primary Care Provider] - Disposition Disposition: Home, Self Care
[2021-03-25] MEDS: LORazepam 2 MG/ML Syringe 1 MG IV (23:29)
[2021-03-25 23:30] VITALS: BP 127/82; PULSE 79; RESP 16; O2SAT 98
[2021-03-26 01:00] LABS: Troponin-I HS 12 pg/mL (3.0-78.0)
[2021-03-26 01:11] VITALS: BP 127/84; PULSE 85; RESP 13; O2SAT 95
[2021-03-26] MEDS: oxyCODONE 5 MG Tablet 10 MG PO (01:36)
[2021-03-26 01:42] VITALS: BP 129/85; PULSE 76; RESP 16; O2SAT 95
== END 2021-03-26 01:42 | disposition home or self-care (01) ==
PROVIDERS: Emergency Provider Emergency Medicine; PCP Internal Medicine
DX: R07.9 Chest pain, unspecified (principal); I25.110 Atherosclerotic heart disease of native coronary artery with unstable angina pectoris; M79.602 Pain in left arm; R20.0 Anesthesia of skin; I48.0 Paroxysmal atrial fibrillation; E11.9 Type 2 diabetes mellitus without complications; I10 Essential (primary) hypertension; E78.5 Hyperlipidemia, unspecified; G89.29 Other chronic pain; Z79.84 Long term (current) use of oral hypoglycemic drugs; Z79.82 Long term (current) use of aspirin; Z79.02 Long term (current) use of antithrombotics/antiplatelets; Z79.899 Other long term (current) drug therapy; I25.2 Old myocardial infarction; Z87.891 Personal history of nicotine dependence; Z95.5 Presence of coronary angioplasty implant and graft
CPT/HCPCS: 71046; 80048; 84484; 85025; 93005; 96374; 96375; 99285; A4216; J2405

== ENCOUNTER → 2021-03-28 16:00 | Outpatient (CLI) | payer MEDICARE, MEDICAID, SELFPAY ==
[2019-02-14 09:19] VITALS: BMI 28.3
[2021-03-28 17:30] LABS: Anion Gap 5 (5-15); BUN 9 mg/dL (7-18); BUN/Creat Ratio 11.2 RATIO (10-20); Calcium,Total 9.2 mg/dL (8.5-10.1); Chloride 110 mmol/L (98-107); EST Glomerular Filtration Rate 109 mL/min (>60); Est Glom Filt Rate - Afr Amer 132 mL/min (>60); Glucose 167 mg/dL (74-106); Potassium 3.5 mmol/L (3.5-5.1); Sodium Level 139 mmol/L (136-145)
== END ==
PROVIDERS: PCP Internal Medicine; Referring Provider Physician Assistant Medical; Visit Provider Physician Assistant Medical
DX: E87.6 Hypokalemia (principal)
CPT/HCPCS: 36415; 80048

== ENCOUNTER 2021-10-03 08:46 | Outpatient (CLI) | payer MEDICARE, MEDICAID, SELFPAY ==
[2021-04-08 14:51] VITALS: BMI 28.3
[2021-10-03 12:16] LABS: Absolute Lymphocyte Count 3.31 X10^3/uL (0.83-4.51); Absolute Neutrophil Count 7.9 X10^3/uL (2.0-7.7); Basophil# 0.12 X10^3/uL; Basophil% 0.9 % (0-1); Eosinophil# 0.39 X10^3/uL; Eosinophils% 3.1 % (0-5); Hematocrit 50.5 % (40-54); Hemoglobin 16.7 g/dL (13.0-16.5); Lymphocyte # 3.31 X10^3/ul (0.83-4.51); Lymphocyte % 26.1 % (19-41); Mean Corp Hgb Conc 33.1 g/dL (32-36); Mean Corpuscular Hgb 29.5 pg (27.0-32.0); Mean Corpuscular Volume 89.2 fL (80-94); Mean Platelet Vol. 11.5 fl (6.2-12.0); Monocyte# 0.84 X10^3/uL; Monocyte% 6.6 % (0-10); NRBC Flagged by Analyzer 0 % (0-5); Neutrophil # 7.91 X10^3/uL (2.7-7.7); Neutrophil % 62.4 % (47-70); Platelet Count 236 K/mm3 (150-450); RBC Distribution Width CV 13.6 % (11.6-14.6); RBC Distribution Width SD 43.9 fl (35.1-43.9); Red Blood Count 5.66 M/mm3 (4.6-6.2); White Blood Count 12.7 K/mm3 (4.4-11.0)
[2021-10-03 13:12] LABS: AST(SGOT) 15 U/L (15-37); Alanine Aminotransfer ALT/SGPT 37 U/L (16-61); Albumin, Serum 3.6 g/dL (3.2-5.0); Alkaline Phosphatase 114 U/L (45-117); Anion Gap 10 (5-15); BUN 13 mg/dL (7-18); BUN/Creat Ratio 12.1 RATIO (10-20); Calcium,Total 9.3 mg/dL (8.5-10.1); Chloride 104 mmol/L (98-107); Cholesterol 243 mg/dL (200); Creatinine, Serum 1.07 mg/dL (0.70-1.30); EST Glomerular Filtration Rate 78 mL/min (>60); Est Glom Filt Rate - Afr Amer 94 mL/min (>60); Globulin 3.6 g/dL (2.2-4.2); Glucose 356 mg/dL (74-106); High Density Lipoprotein 27 mg/dL; PSA,Total - Annual Screen 1.49 ng/mL (0.00-4.00); Potassium 4.2 mmol/L (3.5-5.1); Protein, Total 7.2 g/dL (6.4-8.2); Sodium Level 134 mmol/L (136-145); Thyroid Stim Hormone (TSH) 0.69 uIU/mL (0.358-3.74); Triglycerides 1056 mg/dL
[2021-10-07 10:09] LABS: Testosterone, Free 8.43 ng/dL (5.00-21.00)
[2021-10-07 11:32] LABS: Testosterone, % Free 2.99 % (1.50-4.20); Testosterone, Total 282 ng/dL (264-916)
== END 2021-10-03 23:59 | disposition home or self-care (01) ==
LOC: BIMLAB 08:47
PROVIDERS: PCP Internal Medicine; Referring Provider Nurse Practitioner Family; Visit Provider Nurse Practitioner Family
DX: I10 Essential (primary) hypertension (principal); N52.9 Male erectile dysfunction, unspecified; E87.6 Hypokalemia; I25.10 Atherosclerotic heart disease of native coronary artery without angina pectoris; K21.9 Gastro-esophageal reflux disease without esophagitis; Z12.5 Encounter for screening for malignant neoplasm of prostate
CPT/HCPCS: 36415; 80053; 80061; 84153; 84402; 84403; 84443; 85025; G0103

== ENCOUNTER 2022-08-20 19:40 | Emergency (ER) | payer MEDICARE, MEDICAID, SELFPAY ==
[2021-04-08 14:51] VITALS: BMI 28.3
[2022-08-20 19:42] VITALS: BP 132/80; PULSE 97; RESP 14; TEMP 36.1; O2SAT 98; BMI 27.5
--- NOTE | 2022-08-20 20:00 | RAD_ITS ---
INDICATION: chest pain EXAMINATION/TECHNIQUE: X-RAY - XR Chest 1 View COMPARISON: 03/25/2021 FINDINGS: LIFE-SUPPORT AND LINES: 1. None HEART AND VESSELS: The cardiac silhouette, pulmonary vasculature have normal appearance. No evidence of congestive failure. LUNGS AND PLEURAL SPACES: Lungs are well expanded with the exception of a subtle areas of curvilinear density at both lung bases. This may be accentuated by pectoral muscle shadows however underlying atypical infiltrate is a consideration. This was not present on prior exams. MEDIASTINUM AND HILAR REGIONS: No masses adenopathy noted. No areas of calcification. Visualized upper airway is normal in position. BONY ELEMENTS: No acute bony changes noted. RAD/Chest 1 View (Portable) IMPRESSION: 1. Curvilinear areas of hazy density at both lung bases, this can be contributed by petrol shadows, however not present on prior exams, alternative would be development of atypical interstitial infiltrate at the lung bases. 2. No consolidation, congestive failure or effusion. Electronically Signed: Golden English MD at 20:19 EST ,
[2022-08-20 20:13] LABS: Absolute Lymphocyte Count 3.18 X10^3/uL (0.83-4.51); Basophil% 0.9 % (0-1); Eosinophil# 0.26 X10^3/uL; Eosinophils% 2.3 % (0-5); Hematocrit 49.5 % (40-54); Hemoglobin 16.4 g/dL (13.0-16.5); Lymphocyte # 3.18 X10^3/ul (0.83-4.51); Lymphocyte % 27.8 % (19-41); Mean Corp Hgb Conc 33.1 g/dL (32-36); Mean Corpuscular Hgb 30.1 pg (27.0-32.0); Mean Platelet Vol. 10.8 fl (6.2-12.0); Monocyte# 0.84 X10^3/uL; Monocyte% 7.3 % (0-10); NRBC Flagged by Analyzer 0 % (0-5); Neutrophil # 6.98 X10^3/uL (2.7-7.7); Platelet Count 181 K/mm3 (150-450); RBC Distribution Width CV 13.1 % (11.6-14.6); RBC Distribution Width SD 42.7 fl (35.1-43.9); Red Blood Count 5.44 M/mm3 (4.6-6.2); White Blood Count 11.4 K/mm3 (4.4-11.0)
[2022-08-20 20:35] LABS: Anion Gap 8 (5-15); BUN 14 mg/dL (7-18); BUN/Creat Ratio 14.5 RATIO (10-20); Calcium,Total 9.2 mg/dL (8.5-10.1); Chloride 105 mmol/L (98-107); Creatinine, Serum 0.96 mg/dL (0.70-1.30); EST Glomerular Filtration Rate 87 mL/min (>60); Est Glom Filt Rate - Afr Amer 106 mL/min (>60); Estimated Creatinine Clearance 95.05 ml/min; Glucose 418 mg/dL (74-106); Sodium Level 138 mmol/L (136-145); Troponin-I HS 12 pg/mL (3.0-78.0)
--- NOTE | 2022-08-20 21:14 | EDS_ITS ---
HPI History of Present Illness Chief Complaint: Chest Pain Narrative Narrative: Patient presents with chest pain and tightness, also some back pain that resolved. He also has chronic neuropathy and its been acting out more. No fevers or chills he is denying a cough. He had chest tightness but no shortness of breath. PFSH PFS Medical History Abscess of neck (09/2020) Atherosclerosis of [place] coronary artery of [place] heart without angina pectoris Chronic pain Depression DM2 (diabetes mellitus, type 2) Erectile dysfunction Essential hypertension Herniated disc History of non-ST elevation myocardial infarction (NSTEMI) (09/14/18) HLD (hyperlipidemia) Hypokalemia Paroxysmal atrial fibrillation Tobacco use Home Medications tiagabine 4 mg tablet See Rx Instructions .Route .COMPLEX nerve pain 02/17/16 [History Last Taken 09/30/20] metformin 500 mg tablet 1,000 mg PO BID sugar #360 tabs 06/02/21 [Rx Last Taken Unknown] doxycycline hyclate 100 mg capsule 100 mg PO BID #10 caps 08/20/22 [Rx Last Taken Unknown] Allergy/AdvReac Type Severity Reaction Status Date / Time pregabalin [From Lyrica] AdvReac Itching Verified 08/20/22 19:42 Family History Father Esophageal cancer Diabetes Myocardial infarction Mother Arthritis Diabetes Surgical History H/O arthroscopic knee surgery History of arthroscopic knee surgery History of back surgery History of coronary artery stent placement (02/13/19) s/p back Social History Smoking Status: Current every day smoker tobacco type: cigarettes Tobacco: How many years used: 30 alcohol intake: current alcohol intake frequency: a few times a week Alcohol type: beer substance use type: does not use what type of physical activity do you participate in: none ROS ROS ED ROS Narrative Past medical history: Reviewed, includes CAD status post stenting, tobacco abuse, diabetes, hypertension, hypercholesterolemia Medications: Reviewed Social history: Noncontributory Review of systems: All systems negative except as indicated General: No fever Eyes: No visual changes ENT: No upper airway congestion, normal voice Neck: No neck pain Cardiovascular: As in HPI Respiratory: As in HPI Gastrointestinal: No abdominal pain, nausea vomiting or diarrhea Genitourinary: No dysuria Musculoskeletal: Denies myalgias no difficulty with ambulation Skin: No rash Neurological: No memory loss, confusion or any focal weakness Psych: No recent behavioral changes Hematologic: No easy bleeding or easy bruising EXAM Physical Exam Narrative Exam Narrative: Physical exam General: Patient appears anxious Head: Normocephalic, Atraumatic Eyes: Conjunctiva not pale ENT: Moist mucous membranes Neck: Supple, Nontender, No lymphadenopathy Cardiovascular: Regular rate, Regular rhythm, no obvious murmur Respiratory: No distress, CTA bilaterally Abdomen: Soft, Nontender, Nondistended Back: Nontender, Normal Inspection. Negative for: CVA tenderness he does have some reproducible paraspinal mid thoracic pain. Extremities: Nontender, No edema Skin: Normal color, No rash Neurological: Alert, Normal Strength, Normal Sensation Psychological: Normal affect Const Vital Signs: 08/20/22 19:42 08/20/22 21:03 Temperature 97 F L Temperature Source Temporal Pulse Rate 97 Respiratory Rate 14 Blood Pressure 132/80 H Blood Pressure Mean 97 Pulse Ox 98 Oxygen Delivery Method Room Air Room Air [facility] Lab Data Labs: Laboratory Results - last 24 hr 08/20/22 08/20/22 08/20/22 20:01 20:01 20:01 WBC 11.4 H RBC 5.44 Hgb 16.4 Hct 49.5 MCV 91.0 MCH 30.1 MCHC 33.1 RDW Std Deviation 42.7 RDW Coeff of [place] 13.1 Plt Count 181 MPV 10.8 Immature Gran % (Auto) 0.700 Neut % (Auto) 61.0 Lymph % (Auto) 27.8 [place] % (Auto) 7.3 Eos % (Auto) 2.3 Baso % (Auto) 0.9 Absolute Neuts (auto) 7.0 Absolute Lymphs (auto) 3.18 Nucleated RBC % 0 D-Dimer Quant (PE/DVT) < 0.27 L Sodium 138 Potassium 4.0 Chloride 105 Carbon Dioxide 25.0 Anion Gap 8 BUN 14 Creatinine 0.96 Estim Creat Clear Calc 95.05 Est GFR (MDRD) Af Amer 106 Est GFR (MDRD) Non-Af 87 BUN/Creatinine Ratio 14.5 Glucose 418 H Calcium 9.2 Troponin I High Sens 12 08/20/22 22:06 WBC RBC Hgb Hct MCV MCH MCHC RDW Std Deviation RDW Coeff of Sarahi Plt Count MPV Immature Gran % (Auto) Neut % (Auto) Lymph % (Auto) [place] % (Auto) Eos % (Auto) Baso % (Auto) Absolute Neuts (auto) Absolute Lymphs (auto) Nucleated RBC % D-Dimer Quant (PE/DVT) Sodium Potassium Chloride Carbon Dioxide Anion Gap BUN Creatinine Estim Creat Clear Calc Est GFR (MDRD) Af Amer Est GFR (MDRD) Non-Af BUN/Creatinine Ratio Glucose Calcium Troponin I High Sens 11 Radiography Diagnostic Testing: Clinical Impression(s) from Imaging Studies Chest X-Ray 08/20/22 20:00 IMPRESSION: 1. Curvilinear areas of hazy density at both lung bases, this can be contributed by petrol shadows, however not present on prior exams, alternative would be development of atypical interstitial infiltrate at the lung bases. 2. No consolidation, congestive failure or effusion. Electronically Signed: Golden English MD at 20:19 EST , Chest x-ray read by me as normal EKG Initial EKG: Comments: Sinus rhythm with a rate of 86. Normal IA and QTc intervals. No ischemic changes. Interpreted by emergency doctor Treatment and Re-Evaluation Narrative: A. Problems addressed: I talked the patient about his uncontrolled diabetes, apparently he is on quite a few medications and he does not take any of them. I suspect there seems to be some sort of neuropathy especially with his generalized aches especially tingling in his fingers and toes. He is on Neurontin he is encouraged to take it, he is encouraged to maintain his blood sugars normal. The chest x-ray read by me is normal the radiologist thought there could be an early pneumonia with his symptoms I believe it is reasonable to treat with doxycycline. Otherwise I believe the patient can be safely discharged. B. Amount and/or complexity of the data 1. I talked to the in the room, blood work see above interpreted by me 2. Independent interpretation of test Telemetry: Sinus rhythm with a rate in the 80s without ectopy C. Risk of complications and/or morbidity Differential diagnosis: Coronary artery disease, patient's EKG and troponin were nonremarkable. I thought about PE however the patient has no pleuritic component, no strain pattern on EKG no hypoxia or tachycardia. I have thought about admitting the patient with his diabetes and chest pain however I believe since he has thoroughly been worked up and ruled out for an acute [place] he can get an outpatient work-up. I talked to his about this Again I encouraged him to control his diabetes and significant hyperglycemia Discharge Plan Triage Chief Complaint: Chest Pain ED Provider: Jeffery Kiser Dx/Rx/DC Orders Clinical Impression: Acute hyperglycemia, Chest pain, Neuropathy, Pneumonia Instructions: ED Chest Pain, Noncardiac, ED Diabetic Hyperglycemia Prescriptions: New doxycycline hyclate 100 mg capsule 100 mg PO BID Qty: 10 0RF No Action tiagabine 4 MG tablet See Rx Instructions .ROUTE .COMPLEX Rx Instructions: 4 mg breakfast 8mg qhs metformin 500 mg tablet 1,000 mg PO BID Qty: 360 1RF Rx Instructions: must hold for 3 days Primary Care Provider: Michael De Jesus Referrals: Michael De Jesus MD [Primary Care Provider] - 3-5 Days Disposition Disposition: Home, Self Care
[2022-08-20] MEDS: Ketorolac 15 MG/ML Vial IV (21:32)
[2022-08-20] MEDS: 0.9% Normal Saline 1,000 ML 999 ML IV (21:32)
[2022-08-20] MEDS: Morphine 4 MG/ML Syringe IV (21:32)
[2022-08-20 21:46] LABS: D-Dimer Quantitative (DVT/PE) < 0.27 FEU/ug/m (0.27-0.49)
[2022-08-20 22:28] LABS: Troponin-I HS 11 pg/mL (3.0-78.0)
== END 2022-08-20 22:57 | disposition home or self-care (01) ==
PROVIDERS: Emergency Provider Emergency Medicine; PCP Internal Medicine; Visit Provider Emergency Medicine
DX: J18.9 Pneumonia, unspecified organism (principal); E11.65 Type 2 diabetes mellitus with hyperglycemia; E11.40 Type 2 diabetes mellitus with diabetic neuropathy, unspecified; F17.210 Nicotine dependence, cigarettes, uncomplicated; I10 Essential (primary) hypertension; I25.10 Atherosclerotic heart disease of native coronary artery without angina pectoris; E78.00 Pure hypercholesterolemia, unspecified
CPT/HCPCS: 71045; 80048; 84484; 85025; 85379; 93005; 96361; 96374; 96375; 99283; J7030; A4216

== ENCOUNTER → 2022-08-25 | Outpatient (CLI) | payer MEDICARE, MEDICAID, SELFPAY ==
[2021-04-08 14:51] VITALS: BMI 28.3
--- NOTE | 2022-08-25 14:37 | RAD_ITS ---
INDICATION: SOB EXAMINATION/TECHNIQUE: X-RAY - XR Chest 2 Views COMPARISON: 08/20/2022 FINDINGS: Questionable patchy opacities in the left lower lobe. The cardiomediastinal silhouette is stable. No pleural effusion or pneumothorax. The osseous structures are unchanged. RAD/Chest PA and Lateral IMPRESSION: Questionable patchy opacities in the left lower lobe could represent infection in the correct clinical setting. Otherwise, no change from prior study. Electronically Signed: Keven Eric MD at 18:10 EST ,
== END | disposition home or self-care (01) ==
LOC: MTRAD 14:36
PROVIDERS: PCP Nurse Practitioner Family; Referring Provider Nurse Practitioner Family; Visit Provider Nurse Practitioner Family
DX: R06.02 Shortness of breath (principal)
CPT/HCPCS: 71046

== ENCOUNTER → 2022-09-02 | Outpatient (CLI) | payer MEDICARE, MEDICAID, SELFPAY ==
[2021-04-08 14:51] VITALS: BMI 28.3
--- NOTE | 2022-09-02 08:00 | CT_ITS ---
STUDY: LOW DOSE CT LUNG CANCER SCREENING REASON FOR EXAM: Male, 51 years old. Tobacco abuse greater than 30 years; recent chest xray with lower RADIATION DOSAGE (If Supplied By Facility): CTDIvol = ( 2.39 ) mGy, DLP = ( 79.82 ) mGycm TECHNIQUE: No contrast was administered. Low dose technique was utilized (average mAS-38 and kVp 120). 1.25 mm axial source images with a slice interval of 1.25-mm were reconstructed in lung windows. 2.5 mm axial source images with a slice interval of 2.5-mm were reconstructed in lung windows. 5.0 mm axial source images with a slice interval of 5.0-mm were reconstructed in soft tissue windows. COMPARISON: None. NODULES: No suspicious nodules are seen. Emphysema: Mild degree of emphysematous changes. Endobronchial lesion: Unremarkable. Aorta: Unremarkable CORONARY ARTERIES: Coronary artery calcification is seen. Heart: Unremarkable Pulmonary artery: Unremarkable Mediastinal nodes: Unremarkable Other chest and abdominal findings: CT/Low Dose CT Lung Screening IMPRESSION: Lung-RADS category 2 - Continue annual screening with LDCT in 12 months. IMPORTANT NOTES FOR USE: ACR Lung-RADS Version 1.1 Assessment Categories Release Date: 2018 Category: Coded 0-4 bases on nodule(s) with highest degree of suspicion. Negative screen is defined as categories 1 and 2; a positive screen is defined as categories 3 and 4. Category 3 and 4A nodules that are unchanged on interval CT should be coded as category 2, and individuals returned to screening in 12 months. Category 4X: Category 3 or 4 nodules with additional imaging findings that increase the suspicion of lung cancer, such as spiculation, GGN that doubles in size in 1 year, enlarged lymph notes, etc. Category Modifiers: S (significant finding unrelated to lung cancer) Electronically Signed: Patrice Shah MD at 14:06 EST ,
== END | disposition home or self-care (01) ==
LOC: CT 07:59
PROVIDERS: PCP Nurse Practitioner Family; Referring Provider Nurse Practitioner Family; Visit Provider Nurse Practitioner Family
DX: Z87.891 Personal history of nicotine dependence (principal)
CPT/HCPCS: 71271

== ENCOUNTER → 2023-06-09 | Outpatient (CLI) | payer MEDICARE, MEDICAID, SELFPAY ==
[2021-04-08 14:51] VITALS: BMI 28.3
[2023-06-09 17:50] LABS: Hemoglobin 17.6 g/dL (13.0-16.5); Mean Corp Hgb Conc 32.6 g/dL (32-36); Mean Corpuscular Hgb 28.7 pg (27.0-32.0); Mean Corpuscular Volume 87.9 fL (80-94); Mean Platelet Vol. 12.4 fl (6.2-12.0); Platelet Count 205 K/mm3 (150-450); RBC Distribution Width CV 12.5 % (11.6-14.6); RBC Distribution Width SD 40.6 fl (35.1-43.9); Red Blood Count 6.14 M/mm3 (4.6-6.2); White Blood Count 11.5 K/mm3 (4.4-11.0)
[2023-06-09 18:12] LABS: Microalbumin:Creatinine Ratio 116.4 mg/g CRE (<30 mg/g CRE)
[2023-06-09 18:30] LABS: ALB/GLOB Ratio 0.9 RATIO (0.9-2.4); AST(SGOT) 13 U/L (15-37); Alanine Aminotransfer ALT/SGPT 28 U/L (16-61); Albumin, Serum 3.8 g/dL (3.2-5.0); Alkaline Phosphatase 125 U/L (45-117); Anion Gap 6 (5-15); BUN 12 mg/dL (7-18); BUN/Creat Ratio 13.4 RATIO (10-20); Calcium,Total 9.6 mg/dL (8.5-10.1); Chloride 101 mmol/L (98-107); Cholesterol 248 mg/dL (200); EST Glomerular Filtration Rate 95 mL/min (>60); Est Glom Filt Rate - Afr Amer 115 mL/min (>60); Globulin 4.3 g/dL (2.2-4.2); Glucose 423 mg/dL (74-106); High Density Lipoprotein 36 mg/dL; Potassium 4.4 mmol/L (3.5-5.1); Protein, Total 8.1 g/dL (6.4-8.2); Sodium Level 132 mmol/L (136-145); Triglycerides 293 mg/dL; Very Low Density Lipoprotein 59 mg/dL (5-40)
[2023-06-12 09:09] LABS: Hemoglobin A1c 11.2 % (3.8-5.6)
== END | disposition home or self-care (01) ==
LOC: MFPLAB 14:55
PROVIDERS: PCP Family Medicine; Visit Provider Family Medicine
DX: E11.9 Type 2 diabetes mellitus without complications (principal); Z12.5 Encounter for screening for malignant neoplasm of prostate
CPT/HCPCS: 36415; 80053; 80061; 82043; 82570; 83036; 84153; 84443; 85027; G0103

== ENCOUNTER 2023-08-01 04:49 | Observation (INO) | payer MEDICARE, MEDICAID, SELFPAY ==
[2021-04-08 14:51] VITALS: BMI 28.3
[2023-08-01] VITALS (8 sets, daily range): BP systolic 99–133; BP diastolic 59–78; PULSE 60–77; RESP 14–18; TEMP 36.1–37; O2SAT 95–99; BMI 25.7; BMI 25.9
--- NOTE | 2023-08-01 05:03 | EDS_ITS ---
HPI History of Present Illness Chief Complaint: Chest Pain Onset/Context/Timing Onset: Today Activity at onset: sudden Timing: Intermittent Quality: Positive for Tightness Location: Substernal Current Severity: Gone Maximum Severity: Moderate Worsened By: Nothing Relieved By: NTG (Took total of 3 5 minutes apart) Associated Symptoms: Positive for Nausea, Diaphoresis, Dyspnea and Lightheadedness; Negative for Vomiting, Cough, Fever, Acid Reflux or Palpitations Narrative Narrative: Patient is a 52-year-old male who has history of atherosclerotic heart disease with stent placement diagonal and circumflex. The circumflex is a large dominant vessel. The circumflex was stented by Dr. Lukasz Marshall February 2019. Patient was also noted to have nonsignificant disease in the RCA. EF was preserved. Patient states he was sitting when he developed tightness in his chest radiating to his back with diaphoresis nausea shortness of breath and lightheadedness. Patient took a total of 3 nitroglycerin. Patient is presently pain-free. Patient is a smoker 1 pack/day. He does have history essential hypertension, hyperlipidemia, type 2 diabetes. He does have a history of GERD. He states this pain is different than his GERD. When he presented with his chest discomfort February 2019 he had an atypical presentation with neck and left shoulder pain. Patient denies black or maroon-colored stool. He denies abdominal pain. Denies intolerance to greasy or fried foods. Patient denies headache, visual, ocular auditory symptoms. Patient denies dyspnea Clinisync distribution, orthopnea or PND. Patient denies urologic symptoms. He takes a baby aspirin a day. He was given 4 baby aspirin in route by squad. Prior Similar Symptoms: Yes Recent Illness/Hospitalization: No CVD Risk Factors: Positive for Hypertension, Diabetes, Hypercholesterolemia and Smoking PE Risk Factors: Negative for Recent Travel/Surgery, Recent Immobilization, Prior DVT or PE, Cancer or OCP + Smoking + >/=35 TAD Risk Factors: Positive for Hypertension; Negative for Marfan's Syndrome or Family History PFSH PFSH Medical History Abscess of neck (09/2020) Atherosclerosis of [place] coronary artery of [place] heart without angina pectori s Chronic pain Depression DM2 (diabetes mellitus, type 2) Erectile dysfunction Essential hypertension Herniated disc History of non-ST elevation myocardial infarction (NSTEMI) (09/14/18) HLD (hyperlipidemia) Hypokalemia Impingement of left shoulder Impingement of right shoulder Left shoulder pain Paroxysmal atrial fibrillation Tobacco use Home Medications aspirin 81 mg tablet,delayed release 81 mg PO DAILY #90 tabs 07/29/23 [Rx Last Taken Unknown] brexpiprazole 0.5 mg tablet (Rexulti) 1 mg PO DAILY 07/29/23 [History Last Taken Unknown] nitroglycerin 0.4 mg sublingual tablet 0.4 mg sublingual Q5M PRN Cardiac/Chest Pain #1 BOTTLE 07/29/23 [Rx Last Taken Unknown] omeprazole 20 mg capsule,delayed release 20 mg PO DAILY 07/29/23 [History Last Taken Unknown] rosuvastatin 10 mg tablet (Crestor) 10 mg PO DAILY 07/29/23 [History Last Taken Unknown] Allergy/AdvReac Type Severity Reaction Status Date / Time pregabalin [From Lyrica] AdvReac Itching Verified 08/01/23 04:54 Family History Father Esophageal cancer Diabetes Myocardial infarction Mother Arthritis Diabetes Surgical History H/O arthroscopic knee surgery History of arthroscopic knee surgery History of back surgery History of coronary artery stent placement (02/13/19) s/p back Social History Smoking Status: Current every day smoker tobacco type: cigarettes Tobacco: How many years used: 30 alcohol intake: current alcohol intake frequency: a few times a week Alcohol type: beer substance use type: does not use what type of physical activity do you participate in: none ROS ROS ED Constitutional Constitutional ED: Denies chills, fever(s), subjective, sweats or weight loss Eyes Eyes: Reports none ENT ENT ED: Denies ear pain, rhinorrhea or sore throat Cardiovascular Cardiovascular: Reports as per HPI; Denies orthopnea or paroxysmal nocturnal dyspnea Respiratory/Chest Respiratory/Chest: Reports dyspnea; Denies cough, dyspnea on exertion, orthopnea or paroxysmal nocturnal dyspnea Gastrointestinal Gastrointestinal: Denies abdominal pain, diarrhea, melena or vomiting Musculoskeletal Musculoskeletal: Reports back pain; Denies arthralgias, myalgias or neck pain Integumentary Reports rash Endocrine Endocrinology: Denies cold intolerance, heat intolerance or polydipsia Hematologic/Lymphatic Hematologic/Lymphatic: Denies easy bleeding or easy bruising EXAM Physical Exam Const Vital Signs: 08/01/23 04:50 08/01/23 04:50 08/01/23 05:05 Temperature 97.6 F L Temperature Source Temporal Pulse Rate 74 Respiratory Rate 15 Respiratory Effort Normal Blood Pressure 99/59 L Blood Pressure Mean 72 Pulse Ox 95 Oxygen Delivery Method Room Air Room Air 08/01/23 06:27 Temperature Temperature Source Pulse Rate 67 Respiratory Rate 15 Respiratory Effort Blood Pressure 107/68 Blood Pressure Mean 81 Pulse Ox 97 Oxygen Delivery Method Positive well nourished and well developed General Appearance ED: well developed and NAD HEENT Reports moist mucous membranes normocephalic and atraumatic Eyes PERRL and EOMs intact bilaterally General Eye ED: Negative for pale conjunctiva or scleral icterus Neck supple and no JVD Chest Wall inspection of chest normal and palpation of chest normal Resp normal respiratory effort and clear to auscultation bilaterally Cardio regular rate, regular rhythm, S1 normal heart sound, S2 normal heart sound and no murmurs GI normal to inspection, nondistended, normoactive bowel sounds, soft to palpation, non-tender, non-distended and hepatosplenomegaly; Negative for no masses Back/Spine no CVA tenderness and no thoracic nor lumbar tenderness Extremity normal to inspection General Extremety ED: Negative for edema, pulses abnormal or tenderness General Extremity: Negative for edema or pulses abnormal Neuro oriented x3, no sensory deficits noted and gait normal Psych mental status grossly normal Skin no rashes or lesions noted and no wounds MDM MDM MDM Narrative Medical decision making narrative: Differential diagnoses include cardiac versus noncardiac pain. Noncardiac would include reflux, gastritis, peptic ulcer disease, biliary disease and pulmonary disease. Since patient received aspirin in the squad prior to arrival he was not given additional dose of aspirin. EKG was obtained to rule out any acute ischemia. Chest x-ray to assess lung parenchyma mediastinum. CBC to rule out anemia. Basic metabolic panel to assess renal function. Cardiac ears obtained to rule out coronary disease. Patient received a [place] tablet for his back pain, which is a chronic issue. History & Record Review Additional record(s) reviewed:: Prior inpatient record, Prior outpatient record and Prior ED visit Lab Data Attestation: I reviewed the patient's lab results. Lab results narrative: White count is slightly elevated with a normal differential and H&H. Basic metabolic panel is marked for glucose of 538 with a normal CO2 and anion gap. First troponin is normal. Labs: Laboratory Results - last 24 hr 08/01/23 05:04 WBC 12.0 H RBC 4.97 Hgb 14.4 Hct 44.2 MCV 88.9 MCH 29.0 MCHC 32.6 RDW Std Deviation 43.8 RDW Coeff of Sarahi 13.6 Plt Count 160 MPV 11.5 Immature Gran % (Auto) 0.800 Neut % (Auto) 65.5 Lymph % (Auto) 22.6 [place] % (Auto) 8.2 Eos % (Auto) 2.2 Baso % (Auto) 0.7 Absolute Neuts (auto) 7.9 H Absolute Lymphs (auto) 2.71 Nucleated RBC % 0 Sodium 136 Potassium 3.6 Chloride 107 Carbon Dioxide 24.0 Anion Gap 5 BUN 15 Creatinine 1.02 Estim Creat Clear Calc 88.47 Est GFR (MDRD) Af Amer 99 Est GFR (MDRD) Non-Af 82 BUN/Creatinine Ratio 14.7 Glucose 538 H* Calcium 9.3 Troponin I High Sens 18 Radiography Chest X-Ray - ED: 1 View and Read by ED Physician (Single view portable chest x- ray reveals limited inspiratory volume. Cardiac silhouette size normal. Mediastinum normal. Lung parenchyma is normal. Osseous structures are unremarkable. This independent reviewed interpreted by me at 0517) EKG Initial EKG: Attestation: I personally reviewed and interpreted this EKG as follows: Interpretation: Sinus Rhythm (Rate is 81. DC interval is 140 ms. QRS duration 84 ms. QT duration 400 ms. [place] is normal. QTc is 464. There is prolongation of the QT interval. There is no ossific changes noted which I believe is artifact since is only seen in some leads and not meant adjacent leads.) Management Discussion w/another healthcare provider: Hospitalist (Review of most recent cardiac office visit notes indicates patient discontinued his cardiac meds and has not been compliant with insulin either. Plan is observation and cardiology consult.) Treatment and Re-Evaluation :: Patient received insulin for his elevated blood sugar of 538. Discharge Plan Triage Chief Complaint: Chest Pain ED Provider: Stan Mayers Dx/Rx/DC Orders Clinical Impression: Angina at rest, History of coronary artery stent placement, Essential hypertension, HLD (hyperlipidemia), Atherosclerotic heart disease of [place] coronary artery with angina pectoris, Type 1 diabetes mellitus with hyperglycemia, without long-term current use of insulin Prescriptions: No Action omeprazole 20 mg capsule,delayed release(DR/EC) 20 mg PO DAILY Rexulti 0.5 mg tablet 1 mg PO DAILY rosuvastatin [Crestor] 10 mg tablet 10 mg PO DAILY nitroglycerin 0.4 mg tablet, sublingual 0.4 mg sublingual Q5M PRN (Reason: Cardiac/Chest Pain) Qty: 1 3RF aspirin 81 mg tablet,delayed release (DR/EC) 81 mg PO DAILY Qty: 90 3RF Primary Care Provider: Marylu Mckoy Referrals: Marylu Mckoy, DO [Primary Care Provider] - Disposition Disposition: Acute Care Hospital [facility]
--- NOTE | 2023-08-01 05:09 | RAD_ITS ---
INDICATION: chest pain EXAMINATION/TECHNIQUE: X-RAY - XR Chest 1 View COMPARISON: Chest x-ray from 08/25/2022 FINDINGS: LINES/DEVICES: None. LUNGS: No pulmonary edema or focal airspace consolidation. No sizable pleural effusion. No pneumothorax detected. MEDIASTINUM AND CARDIOVASCULAR STRUCTURES: Heart size within normal limits. Mediastinal contours unremarkable. BONES AND SOFT TISSUES: No acute findings. RAD/Chest 1 View (Portable) IMPRESSION: No radiographic evidence of acute cardiopulmonary disease. Electronically Signed: Beka Pepe MD at 7:05 EST ,
[2023-08-01] MEDS: HYDROcodone Bitartrate/Apap 5/325 Tablet PO (05:18)
[2023-08-01 05:20] LABS: Absolute Lymphocyte Count 2.71 X10^3/uL (0.83-4.51); Absolute Neutrophil Count 7.9 X10^3/uL (2.0-7.7); Basophil# 0.08 X10^3/uL; Basophil% 0.7 % (0-1); Eosinophil# 0.27 X10^3/uL; Eosinophils% 2.2 % (0-5); Hematocrit 44.2 % (40-54); Hemoglobin 14.4 g/dL (13.0-16.5); Lymphocyte # 2.71 X10^3/ul (0.83-4.51); Lymphocyte % 22.6 % (19-41); Mean Corp Hgb Conc 32.6 g/dL (32-36); Mean Corpuscular Volume 88.9 fL (80-94); Mean Platelet Vol. 11.5 fl (6.2-12.0); Monocyte# 0.98 X10^3/uL; Monocyte% 8.2 % (0-10); NRBC Flagged by Analyzer 0 % (0-5); Neutrophil # 7.87 X10^3/uL (2.7-7.7); Neutrophil % 65.5 % (47-70); Platelet Count 160 K/mm3 (150-450); RBC Distribution Width CV 13.6 % (11.6-14.6); RBC Distribution Width SD 43.8 fl (35.1-43.9); Red Blood Count 4.97 M/mm3 (4.6-6.2)
[2023-08-01 05:55] LABS: Anion Gap 5 (5-15); BUN 15 mg/dL (7-18); BUN/Creat Ratio 14.7 RATIO (10-20); Calcium,Total 9.3 mg/dL (8.5-10.1); Chloride 107 mmol/L (98-107); Creatinine, Serum 1.02 mg/dL (0.70-1.30); EST Glomerular Filtration Rate 82 mL/min (>60); Est Glom Filt Rate - Afr Amer 99 mL/min (>60); Estimated Creatinine Clearance 88.47 ml/min; Glucose 538 mg/dL (74-106); Potassium 3.6 mmol/L (3.5-5.1); Sodium Level 136 mmol/L (136-145); Troponin-I HS (w/2H Reflex) 18 pg/mL (3.0-78.0)
[2023-08-01] MEDS: Insulin Lispro 100 UNIT/ML INSULN.PEN 10 UNIT SC (06:26)
--- NOTE | 2023-08-01 06:32 | HP.PCM.HOS_ITS ---
HPI - General General Date of Admission: 08/01/23 Date of Service: 08/01/23 Chief Complaint: Chest pain. HPI Narrative The patient is a 52 y/o M w/ PMHx: AMITA not compliant with PAP therapy, diabetes mellitus type II, CAD s/p NSTEMI 09/2018 s/p PCI mid diagonal, 02/2019 PCI circumflex, Chronic back pain following with pain management, HTN, HLD, PAF, Tobacco use, recent 07/29/23 Cardiology visit during which patient reported he stopped all of his medication including his antiplt therapies secondary to being tired of taking them with noted preference per cardiology to obtain a surveillance stress test in addition to strong encouragement to consider anticoagulation given his [id number] score of 2 who now presents to the [facility] ED on 08/01/23 with history of onset of chest discomfort described as a tightness in the substernal region with associated nausea, dyspnea, lightheadedness and diaphoresis with self administration of nitroglycerin x 3 at home with EMS call and administration of full-strength aspirin therapy upon their arrival. He notes being chest pain-free at this time. Workup in the ED included T97.6, heart rate 74, BP 99/59, respiratory rate 15, 95% on room air, CBC with WBC 12, hemoglobin 14.4, platelet 160 with left shift, BMP with glucose 538 otherwise not marked appearing, troponin 18, EKG with sinus rhythm with mild QT prolongation with QTc 464 with no acute evidence of ischemia, chest x-ray with no acute cardiopulmonary finding with final read pending. In the ED patient ministered [place] 1 tablet p.o. x 1. PFSH Medical History Atherosclerosis of [place] coronary artery of [place] heart without angina pectoris Chronic pain Depression DM2 (diabetes mellitus, type 2) Erectile dysfunction Essential hypertension Herniated disc History of non-ST elevation myocardial infarction (NSTEMI) (09/14/18) HLD (hyperlipidemia) Hypokalemia Impingement of left shoulder Impingement of right shoulder Paroxysmal atrial fibrillation Tobacco use Home Medications aspirin 81 mg tablet,delayed release 81 mg PO DAILY #90 tabs 07/29/23 [Rx Last Taken Unknown] brexpiprazole 0.5 mg tablet (Rexulti) 1 mg PO DAILY 07/29/23 [History Last Taken Unknown] nitroglycerin 0.4 mg sublingual tablet 0.4 mg sublingual Q5M PRN Cardiac/Chest Pain #1 BOTTLE 07/29/23 [Rx Last Taken Unknown] omeprazole 20 mg capsule,delayed release 20 mg PO DAILY 07/29/23 [History Last Taken Unknown] rosuvastatin 10 mg tablet (Crestor) 10 mg PO DAILY 07/29/23 [History Last Taken Unknown] empagliflozin 25 mg-linagliptin 5 mg tablet (Glyxambi) 1 tab PO DAILY 08/01/23 [History Last Taken Unknown] meloxicam 15 mg tablet 15 mg PO DAILY 08/01/23 [History Last Taken Unknown] Allergy/AdvReac Type Severity Reaction Status Date / Time pregabalin [From Lyrica] AdvReac Itching Verified 08/01/23 04:54 Family History Father Esophageal cancer Diabetes Myocardial infarction Mother Arthritis Diabetes Surgical History H/O arthroscopic knee surgery History of arthroscopic knee surgery History of back surgery History of coronary artery stent placement (02/13/19) s/p back Social History (Updated 08/01/23 @ 06:[address] Marcie London MD) household members: spouse Smoking Status: Current every day smoker tobacco type: cigarettes Smoking packs per day: 1 Smoking cigarettes per day: 20.0 Tobacco: How many years used: 30 alcohol intake: current alcohol intake frequency: a few times a week Alcohol type: beer substance use type: does not use what type of physical activity do you participate in: none ROS ROS Narrative Admission Review of Systems: CONSTITUTIONAL: No weight loss, fever, chills, + weakness or fatigue. HEENT: Eyes: No visual loss, blurred vision, double vision or yellow sclerae. Ears, Nose, Throat: No hearing loss, sneezing, congestion, runny nose or sore throat. SKIN: No rash or itching, lesions, wounds. CARDIOVASCULAR: + Chest pain. No palpitations, edema, orthopnea, syncopal events. RESPIRATORY: + Dyspnea. No cough or sputum, wheezing, hemoptysis. GASTROINTESTINAL: + Nausea. No vomiting or diarrhea, abdominal pain, melena, BRBPR. GENITOURINARY: No dysuria, frequency, urgency or retention. NEUROLOGICAL: No headache, dizziness, syncope, paralysis, ataxia, numbness or tingling in the extremities, focal weakness, change in bowel or bladder control, seizure. MUSCULOSKELETAL: + muscle, back pain, joint pain or stiffness. HEMATOLOGIC: No anemia, bleeding or bruising. LYMPHATICS: No enlarged nodes. No history of splenectomy. PSYCHIATRIC: + Anxiety and Depression. ENDOCRINOLOGIC: + Reports of sweating. No cold or heat intolerance. No polyuria or polydipsia. ALLERGIES: No history of asthma, hives, eczema or rhinitis. Vital Signs Vital Signs Vital Signs: 08/01/23 04:50 08/01/23 04:50 08/01/23 05:05 Temperature 97.6 F L Temperature Source Temporal Pulse Rate 74 Respiratory Rate 15 Respiratory Effort Normal Blood Pressure 99/59 L Blood Pressure Mean 72 Pulse Ox 95 Oxygen Delivery Method Room Air Room Air 08/01/23 06:27 08/01/23 05:49 Temperature Temperature Source Pulse Rate 67 65 Respiratory Rate 15 16 Respiratory Effort Blood Pressure 107/68 Blood Pressure Mean 81 Pulse Ox 97 97 Oxygen Delivery Method Room Air Weight Weight: 179 lb 10.828 oz Body Mass Index (BMI) 25.7 Physical Exam Narrative Physical Examination: General: Awake, alert, oriented x 3 and cooperative, seated upright in the ED bed in no apparent distress, chest pain-free. Skin: Normal color, normal turgor, no icterus, no cyanosis. HEENT: AT/NC, EOMI, PERRLA, MMM, difficult to discern carotid bruits and JVD given notable facial hair. Lungs: Mildly diminished, greater bases, proper effort, no rales, ronchi or wheezing. Heart: Regular rate and rhythm; no gallop, rub audible. Abdomen: Soft, NTTP, ND, normal BS, no HSM. Extremities: No cyanosis, clubbing, or edema. Neurological: Patient awake, alert, oriented as noted, cognitive function intact; pupils equally reactive to light and accommodation, cranial nerves II- XII grossly normal, moving all 4 extremities, no focal deficits, strength moderately global decrease secondary to acute presentation complaints. Psychiatric: Affect appears fatigued, no acute evidence of depressive or anxiety feelings but does have underlying history. Results Lab / Micro Data 08/01/23 05:04 08/01/23 05:04 Labs: Laboratory Results - last 24 hr 08/01/23 05:04: WBC 12.0 H, RBC 4.97, Hgb 14.4, Hct 44.2, MCV 88.9, MCH 29.0, MCHC 32.6, RDW Std Deviation 43.8, RDW Coeff of Sarahi 13.6, Plt Count 160, MPV 11.5, Immature Gran % (Auto) 0.800, Neut % (Auto) 65.5, Lymph % (Auto) 22.6, [place] % (Auto) 8.2, Eos % (Auto) 2.2, Baso % (Auto) 0.7, Absolute Neuts (auto) 7.9 H, Absolute Lymphs (auto) 2.71, Nucleated RBC % 0, Sodium 136, Potassium 3.6, Chloride 107, Carbon Dioxide 24.0, Anion Gap 5, BUN 15, Creatinine 1.02, Estim Creat Clear Calc 88.47, Est GFR (MDRD) Af Amer 99, Est GFR (MDRD) Non-Af 82, BUN/Creatinine Ratio 14.7, Glucose 538 H*, Calcium 9.3, Troponin I High Sens 18 Assessment & Plan Assessment/Plan (1) Chest pain: PLAN: Plan The patient is a 52 y/o M w/ PMHx: AMITA not compliant with PAP therapy, diabetes mellitus type II, CAD s/p NSTEMI 09/2018 s/p PCI mid diagonal, 02/2019 PCI circumflex, Chronic back pain following with pain management, HTN, HLD, PAF, Tobacco use, recent 07/29/23 Cardiology visit during which patient reported he stopped all of his medication including his antiplt therapies secondary to being tired of taking them with noted preference per cardiology to obtain a surveillance stress test in addition to strong encouragement to consider anticoagulation given his [id number] score of 2 who now presents to the [facility] ED on 08/01/23 with history of onset of chest discomfort described as a tightness in the substernal region with associated nausea, dyspnea, lightheadedness and diaphoresis. #1. Chest Pain: EKG in ED with sinus rhythm with no acute evidence of ischemia with mildly prolonged QT, CXR w/ no acute cardiopulmonary finding, initial trop 18. Will admit to PCU, place on a monitored bed to assure no acute myocardial infarction with serial cardiac enzymes and EKGs. Will restart aspirin as well as statin therapy as patient had unfortunately discontinued these previously. Magnesium level requested. FLP in AM. If repeat serial cardiac enzymes and EKGs remain stable we will pursue and cardiac stress testing on Wednesday otherwise if enzymes rise will obtain cardiology consultation for cardiac catheterization consideration as patient certainly would be high risk given his history and not been taking any of the appropriate medications. ASA, NG, morphine. #2. CAD, Ischemic cardiomyopathy: s/p PCI-VENANCIO mid D1 09/14/2018; PCI-VENANCIO mid LCX 02/13/2019, will restart aspirin, lovastatin, hold on hypertensive regimen given low blood pressure and per review of trending at least since 2019 patient does not appear to have significant hypertension. Most recent echocardiogram noted 01/17/2019 with EF 45 to 50%, stage I diastolic dysfunction, mild global hypokinesis LV, trivial TVI, RVSP 23 mmHg. #3. PAF: Patient w/ [id number] score of 2 but has declined anticoagulant therapy although in the past had previously been on Xarelto, not on rate or rhythm agent, encourage continued follow-up outpatient with cardiology. #4. Diabetes mellitus type II, uncontrolled with significant hyperglycemia: Patient previously noted to be an uncontrolled diabetic, previously on Trulicity however he discontinued it secondary to how he felt, previously been on insulin but had declined to restart this in the past. He notes he was recently started on glyxamibi 25 mg. Most recent hemoglobin A1c noted 06/09/2023 11.2%. Will initiate on low-dose twice daily long-acting, once appropriate and not n.p.o. transition to ADA diet, accu checks w/ ISS. Nutrition consulted for education and teaching. #5. Anxiety and depression: Patient remotely had been on sertraline and Abilify although records also notable for prior duloxetine. From current records patient is not on any regimen but does have ongoing symptoms therefore would benefit strongly from follow-up with PCP and consideration of regimen resumption. #6. Hypertension: Noted chart history and previously in 2018 and 2019 patient with elevated blood pressures above goal however more recently blood pressures have been appropriate or on the low end, not currently on any hypertensive regimen, continue to monitor. #7. Hyperlipidemia: Will restart home statin regimen. AM FLP. #8. Tobacco Abuse: Encouraged cessation, inpatient consultation per RT, NR if desired. #9. Chronic back pain: Status post prior lumbar back surgery, following with pain management, #10. GERD: We will continue patient home PPI. #11. AMITA: Noncompliant with PAP therapy. #12. DVT prophylaxis: Lovenox. Charges/Coding Visit Charges Inpatient E&M: 65619 Init Hosp L3
[2023-08-01 06:48] LABS: Bedside Glucose 469 mg/dL (74-106)
--- NOTE | 2023-08-01 06:54 | NURSING ---
PCU OBS WHITE CHEST PRESSURE, HX OF CORONARY DISEASE, HYPERGLYCEMIA
[2023-08-01 07:09] LABS: Reflex Troponin-HS? (from REC) Y
[2023-08-01 07:10] LABS: Magnesium 2.4 mg/dL (1.6-2.6)
[2023-08-01 07:53] LABS: Troponin-I HS 21 pg/mL (3.0-78.0)
[2023-08-01] MEDS: Insulin Lispro 100 UNIT/ML INSULN.PEN SC ×4 (08:33→20:44)
[2023-08-01] MEDS: Insulin Glargine-YFGN 100 UNIT/ML Pen 10 UNIT SC ×2 (08:35→20:44)
[2023-08-01] MEDS: Enoxaparin 40 MG/0.4 ML Syringe SC (08:38)
[2023-08-01] MEDS: Pantoprazole Sodium 20 MG Tablet PO (08:41)
[2023-08-01] MEDS: Atorvastatin Calcium 20 MG Tablet PO (08:41)
[2023-08-01] MEDS: Meloxicam 15 MG Tablet PO (08:41)
[2023-08-01] MEDS: oxyCODONE 5 MG Tablet PO ×3 (08:41→19:40)
[2023-08-01 09:07] LABS: Bedside Glucose 385 mg/dL (74-106)
[2023-08-01 11:24] LABS: Troponin-I HS 19 pg/mL (3.0-78.0)
[2023-08-01] MEDS: BREXPIPRAZOLE 1 MG TABLET PO (11:49)
[2023-08-01 12:53] LABS: Bedside Glucose 174 mg/dL (74-106)
--- NOTE | 2023-08-01 13:03 | PN.HOSP_ITS ---
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 Vitals, labs, H&P and management plan reviewed. Patient has history of emphysema and is still active smoker. Complain of chest tightness in the chest radiation to interscapular area mainly left scapular area with diaphoresis nausea shortness of breath and lightheadedness. Has history of CAD status post 2 stents in February 2019. Repeat EKG shows sinus bradycardia 59 bpm, no significant ST-T changes. QTc 445 ms. 3 serial troponin enzymes are negative. ACS ruled out. Patient is scheduled for stress test tomorrow AM. Atypical chest pain. History of CAD, PAF. Diabetes mellitus type 2 and COPD/emphysema. Advised follow-up with pulmonary clinic for PFT as an outpatient.
[2023-08-01 17:42] LABS: Bedside Glucose 237 mg/dL (74-106)
[2023-08-01 21:37] LABS: Bedside Glucose 372 mg/dL (74-106)
[2023-08-02] MEDS: 0.9% Normal Saline (1000mL) 1,000 ML 100 ML IV (00:01)
[2023-08-02] MEDS: 0.9% Saline Lock 10 ML Syringe IV (00:02)
[2023-08-02] MEDS: oxyCODONE 5 MG Tablet PO ×5 (01:08→20:25)
[2023-08-02 03:05] VITALS: BP 133/85; PULSE 62; RESP 14; TEMP 36.6; O2SAT 99
[2023-08-02 06:16] LABS: Absolute Lymphocyte Count 3.14 X10^3/uL (0.83-4.51); Basophil# 0.09 X10^3/uL; Basophil% 0.8 % (0-1); Eosinophil# 0.24 X10^3/uL; Eosinophils% 2.1 % (0-5); Hematocrit 45.5 % (40-54); Hemoglobin 14.8 g/dL (13.0-16.5); Lymphocyte # 3.14 X10^3/ul (0.83-4.51); Lymphocyte % 27.7 % (19-41); Mean Corp Hgb Conc 32.5 g/dL (32-36); Mean Corpuscular Hgb 29.4 pg (27.0-32.0); Mean Corpuscular Volume 90.3 fL (80-94); Mean Platelet Vol. 12.2 fl (6.2-12.0); Monocyte# 0.79 X10^3/uL; NRBC Flagged by Analyzer 0 % (0-5); Neutrophil # 6.97 X10^3/uL (2.7-7.7); Neutrophil % 61.5 % (47-70); Platelet Count 142 K/mm3 (150-450); RBC Distribution Width CV 13.7 % (11.6-14.6); Red Blood Count 5.04 M/mm3 (4.6-6.2); White Blood Count 11.3 K/mm3 (4.4-11.0)
[2023-08-02] MEDS: Insulin Lispro 100 UNIT/ML INSULN.PEN SC ×3 (06:32→17:05)
[2023-08-02] MEDS: Aspirin E.C. 81 MG Tablet PO ×2 (06:32→09:45)
[2023-08-02 06:48] LABS: ALB/GLOB Ratio 0.9 RATIO (0.9-2.4); AST(SGOT) 12 U/L (15-37); Alanine Aminotransfer ALT/SGPT 22 U/L (16-61); Albumin, Serum 2.9 g/dL (3.2-5.0); Alkaline Phosphatase 79 U/L (45-117); Anion Gap 5 (5-15); BUN 10 mg/dL (7-18); BUN/Creat Ratio 19.5 RATIO (10-20); Calcium,Total 8.2 mg/dL (8.5-10.1); Chloride 114 mmol/L (98-107); Cholesterol 146 mg/dL (200); Creatinine, Serum 0.51 mg/dL (0.70-1.30); EST Glomerular Filtration Rate 180 mL/min (>60); Est Glom Filt Rate - Afr Amer 218 mL/min (>60); Estimated Creatinine Clearance 176.93 ml/min; Globulin 3.2 g/dL (2.2-4.2); Glucose 187 mg/dL (74-106); High Density Lipoprotein 31 mg/dL; Potassium 3.3 mmol/L (3.5-5.1); Protein, Total 6.1 g/dL (6.4-8.2); Sodium Level 141 mmol/L (136-145); Triglycerides 167 mg/dL; Very Low Density Lipoprotein 33 mg/dL (5-40)
[2023-08-02 06:52] LABS: Bedside Glucose 170 mg/dL (74-106)
[2023-08-02 07:04] VITALS: O2SAT 97
[2023-08-02 09:05] VITALS: BP 125/83; PULSE 69; RESP 16; TEMP 36.4; O2SAT 100
[2023-08-02] MEDS: Meloxicam 15 MG Tablet PO (09:45)
[2023-08-02] MEDS: Atorvastatin Calcium 20 MG Tablet PO (09:45)
[2023-08-02] MEDS: Pantoprazole Sodium 20 MG Tablet PO (09:45)
[2023-08-02] MEDS: Insulin Glargine-YFGN 100 UNIT/ML Pen 10 UNIT SC (09:59)
--- NOTE | 2023-08-02 11:31 | STRESSREP ---
Stress Test Report Pharmacologic/Lexiscan myocardial perfusion stress test. Indication; 52-year-old patient with known history of CAD Patient has prior PCI stent in 2019 to [place] diagonal as well as circumflex Has symptoms of chest pain., Diabetes mellitus paroxysmal A-fib, COPD emphysema. Evaluated with Lexiscan sestamibi. Stress protocol: Resting EKG demonstrates. Normal sinus rhythm. 0.4 mg of regadenoson was infused per usual protocol followed by rapid intravenous saline flush injection continuous EKG monitoring was performed. The maximum heart rate attained was 90 bpm which was 53% of maximum predicted heart . Stress EKG showed[, no significant change from the resting EKG, with maximum heart rate of 90 bpm. Arrhythmia: No arrhythmia demonstrated Symptoms: Patient had no symptoms of chest pain Blood pressure at rest: 132/82 mmHg, blood pressure at the end of stress: 132/82 mmHg Myocardial perfusion protocol. 11 mCi ]of Technetium 99m Sestamibi was injected at rest. [ 0.4 mg ]of Regadenoson was infused per usual protocol peak infusion 33.5 33.5 mCi ]of Technetium 99m sestamibi was injected. Stress images were obtained stress and rest images were reconstructed and compared in the short axis vertical and horizontal long axis. Gated images were also obtained Perfusion SPECT analysis: Review of the images demonstrate reducedl uptake of sestamibi post stress, apical, distal septal consistent with reversible myocardial ischemia Gated SPECT analysis: The gated ejection fraction is 52% Apical hypokinesia. Conclusion: Abnormal Lexiscan sestamibi with evidence of reversible ischemia in the anterior distal septal and apical region Low normal ejection fraction with apical hypokinesia Recommendation; Due to history of CAD with previous PCI with recommend further evaluation with cardiac catheterization if clinically warranted. Tomeka Garcia MD,FACC,[facility]
[2023-08-02 12:35] LABS: Bedside Glucose 245 mg/dL (74-106)
--- NOTE | 2023-08-02 14:29 | CASEMGMT ---
Met with?patient and his to complete ADAMS form. ADAMS form explained to?both who voiced understanding and signed form. Original form placed in pt?s chart and copy provided to?patient. Trina Rivero, Discharge Planning Asst
[2023-08-02 14:49] VITALS: BP 122/84; PULSE 67; RESP 17; TEMP 36.6; O2SAT 98
--- NOTE | 2023-08-02 15:44 | PCM.PN.HOSP ---
Subjective Subjective Doing well, denies any further chest pressure or chest pain however stress test did come back positive. He does have a known lesion that he could not get stented previously however he has been off his medications for over 12 months. Objective Data Objective Data Vital Signs: Vital Signs Temp Pulse Resp BP Pulse Ox O2 Del Method O2 Flow Rate 98 F 67 17 122/84 H 98 Room Air 2 08/02/23 14:49 08/02/23 14:49 08/02/23 14:49 08/02/23 14:49 08/02/23 14:49 08/02/23 14:49 08/02/23 14:00 Oxygen Flow Rate (L/min) 2 Oxygen Delivery Method Room Air Weight: 180 lb 5.41 oz Body Mass Index (BMI) 25.9 Intake & Output: Intake and Output for Last 24 Hours 08/01/23 08/02/23 08/03/23 03:59 03:59 03:59 Intake Total 1040 / 1040 1060 / 1060 Output Total 500 / 500 Balance 1040 / 1040 560 / 560 Lab / Micro Data 08/02/23 05:11 08/02/23 05:11 Labs: Laboratory Results - last 24 hr 08/01/23 17:01: POC Glucose 237 H 08/01/23 20:43: POC Glucose 372 H 08/02/23 05:11: WBC 11.3 H, RBC 5.04, Hgb 14.8, Hct 45.5, MCV 90.3, MCH 29.4, MCHC 32.5, RDW Std Deviation 45.0 H, RDW Coeff of Sarahi 13.7, Plt Count 142 L, MPV 12.2 H, Immature Gran % (Auto) 0.900, Neut % (Auto) 61.5, Lymph % (Auto) 27.7, [place] % (Auto) 7.0, Eos % (Auto) 2.1, Baso % (Auto) 0.8, Absolute Neuts (auto) 7.0, Absolute Lymphs (auto) 3.14, Nucleated RBC % 0, Sodium 141, Potassium 3.3 L, Chloride 114 H, Carbon Dioxide 22.0, Anion Gap 5, BUN 10, Creatinine 0.51 L, Estim Creat Clear Calc 176.93, Est GFR (MDRD) Af Amer 218, Est GFR (MDRD) Non-Af 180, BUN/Creatinine Ratio 19.5, Glucose 187 H, Calcium 8.2 L, Total Bilirubin 0.40, AST 12 L, ALT 22, Alkaline Phosphatase 79, Total Protein 6.1 L, Albumin 2.9 L, Globulin 3.2, Albumin/Globulin Ratio 0.9, Triglycerides 167, Cholesterol 146, LDL Cholesterol 82, VLDL Cholesterol 33, HDL Cholesterol 31 L 08/02/23 06:31: POC Glucose 170 H 08/02/23 12:14: POC Glucose 245 H Physical Exam Narrative General: Alert, Oriented x3, Cooperative, No apparent distress HEENT: Atraumatic, PERRLA, EOMI, Normocephalic Oral: Moist Mucosa Neck: Supple, No JVD Lungs: Clear to auscultation, Normal air movement, No rhonchi, No wheeze, No rales Cardiovascular: Regular rate, Regular Rhythm, Normal S1, Normal S2, No murmurs Abdomen: Soft, Non Tender, Non-Distended, No Hepato-splenomegaly Extremities: No edema, Capillary Refill Less than 3 Seconds Skin: No rashes, No breakdown Musculoskeletal: No Tenderness to Palpation of Joints or Extremities Neurological: Cranial nerves II-XII grossly intact, Motor Exam 5/5 strength throughout, Sensory exam intact to light touch and pain Psych/Mental Status: Normal Affect, Appropriate Assessment & Plan Assessment/Plan (1) Chest pain: PLAN: Plan 1. Chest pain/CAD status post stent/HTN/HLD/A-fib ? Given his positive stress test we will consult cardiology for heart cath in the morning ? He did recently restart his home medications so it is possible that he has in-stent stenosis ? Continue with his home aspirin, and Crestor ? Depending on cath results will have further recommendations for medical therapy ?He declined anticoagulation due to the admitting physician, he does have an appointment with cardiology as an outpatient in October 04. DM2 ? Had discontinued his home medications for over 12 months, restarted recently ? Continue with insulin ? Accu-Cheks ACHS ? We will monitor make adjustments as necessary ? His A1c in June was 11.2 and was started on Glyxambi 3. Anxiety/depression ? Stable, he is not taking any medications currently I do recommend that he follow-up as an outpatient to be restarted on medications 4. GERD ? Stable ? Continue with PPI DVT: Lovenox Charges/Coding Visit Charges Inpatient E&M: 34997 Subs Hosp L2
[2023-08-02 17:01] LABS: Bedside Glucose 343 mg/dL (74-106)
--- NOTE | 2023-08-02 18:13 | CON.PCM.CA_ITS ---
Assessment & Plan Assessment/Plan (1) Type 1 diabetes mellitus with hyperglycemia, without long-term current use of insulin: (2) Chest pain: (3) Atherosclerotic heart disease of [place] coronary artery with angina pectoris: (4) History of coronary artery stent placement: (5) Paroxysmal atrial fibrillation: PLAN: Plan 52-year-old patient Patient with known history of CAD 2019 patient had a PCI stent of the left circumflex using drug-eluting stent Promus 3 x 24 mm As well he has PCI and stent of D1/diagonal branch Patient presented with symptoms of chest pain Treated with medical therapy and symptoms of chest pain resolved He had further evaluation by nuclear stress test which showed LV function low?n ormal With ejection fraction 52% With evidence of reversible ischemia involving the LAD distribution. Has also apical hypokinesia Cardiac care plan recommendation Discussed in detail cardiac care plan with the nursing staff and with the medical team Based on his clinical presentation and symptoms of chest pain in addition to history of PCI and stent of left circumflex and diagonal branch And abnormal nuclear stress test would recommend to evaluate further with cardiac catheterization Approach will be right radial artery approach. And will discuss further plan with the result of cardiac cath. Tomeka Garcia MD,FAC,[facility] HPI Consult Data Date of Consult: 08/02/23 HPI Narrative Reason for Consultation: CAD/status post PCI and stent/[facility] HPI Narrative: REJI CORTES, is a 52 M who presents [facility] Medical History Atherosclerosis of [place] coronary artery of [place] heart without angina pectoris Chronic pain Depression DM2 (diabetes mellitus, type 2) Erectile dysfunction Essential hypertension Herniated disc History of non-ST elevation myocardial infarction (NSTEMI) (09/14/18) HLD (hyperlipidemia) Hypokalemia Impingement of left shoulder Impingement of right shoulder Paroxysmal atrial fibrillation Tobacco use Home Medications aspirin 81 mg tablet,delayed release 81 mg PO DAILY #90 tabs 07/29/23 [Rx Last Taken Unknown] brexpiprazole 0.5 mg tablet (Rexulti) 1 mg PO DAILY 07/29/23 [History Last Taken Unknown] nitroglycerin 0.4 mg sublingual tablet 0.4 mg sublingual Q5M PRN Cardiac/Chest Pain #1 BOTTLE 07/29/23 [Rx Last Taken Unknown] omeprazole 20 mg capsule,delayed release 20 mg PO DAILY 07/29/23 [History Last Taken Unknown] rosuvastatin 10 mg tablet (Crestor) 10 mg PO DAILY 07/29/23 [History Last Taken Unknown] empagliflozin 25 mg-linagliptin 5 mg tablet (Glyxambi) 1 tab PO DAILY 08/01/23 [History Last Taken Unknown] meloxicam 15 mg tablet 15 mg PO DAILY 08/01/23 [History Last Taken Unknown] Allergy/AdvReac Type Severity Reaction Status Date / Time pregabalin [From Lyrica] AdvReac Itching Verified 08/01/23 04:54 Family History Father Esophageal cancer Diabetes Myocardial infarction Mother Arthritis Diabetes Surgical History H/O arthroscopic knee surgery History of arthroscopic knee surgery History of back surgery History of coronary artery stent placement (02/13/19) s/p back Social History (Updated 08/01/23 @ 06:[address] Marcie London MD) household members: spouse Smoking Status: Current every day smoker tobacco type: cigarettes Smoking packs per day: 1 Smoking cigarettes per day: 20.0 Tobacco: How many years used: 30 alcohol intake: current alcohol intake frequency: a few times a week Alcohol type: beer substance use type: does not use what type of physical activity do you participate in: none Physical Exam Cardio Cardio Narrative: Underlying cardiac rhythm is sinus rhythm Cardiac exam S1-S2 regular Chest exam is clear to auscultation bilaterally Risk Stratification Risk Stratification Applicable: Yes Age >/= 65: No >/= 3 CAD Risk Factors (HTN, HLD, DM, family hx of CAD, or current smoker): Yes Aspirin Use in the Past 7 Days: Yes Severe Angina (>/= episodes in 24 hours): No EKG ST Changes >/= 0.5mm: No Positive Cardiac Marker: No CONCHITA Risk Stratification Score: 2 CONCHITA % Risk: 8% Risk Objective Data Vital Signs: Vital Signs Temp Pulse Resp BP Pulse Ox O2 Del Method O2 Flow Rate 98 F 67 17 122/84 H 98 Room Air 2 08/02/23 14:49 08/02/23 14:49 08/02/23 14:49 08/02/23 14:49 08/02/23 14:49 08/02/23 14:49 08/02/23 14:00 Oxygen Flow Rate (L/min) 2 Oxygen Delivery Method Room Air Weight: 180 lb 5.41 oz Body Mass Index (BMI) 25.9 Intake & Output: Intake and Output for Last 24 Hours 07/31/23 08/01/23 08/02/23 23:59 23:59 23:59 Intake Total 1040 / 1040 1060 / 1060 Output Total 500 / 500 Balance 1040 / 1040 560 / 560 Lab / Micro Data 08/02/23 05:11 08/02/23 05:11 Labs: Laboratory Results - last 24 hr 08/01/23 20:43: POC Glucose 372 H 08/02/23 05:11: WBC 11.3 H, RBC 5.04, Hgb 14.8, Hct 45.5, MCV 90.3, MCH 29.4, MCHC 32.5, RDW Std Deviation 45.0 H, RDW Coeff of Sarahi 13.7, Plt Count 142 L, MPV 12.2 H, Immature Gran % (Auto) 0.900, Neut % (Auto) 61.5, Lymph % (Auto) 27.7, Baker % (Auto) 7.0, Eos % (Auto) 2.1, Baso % (Auto) 0.8, Absolute Neuts (auto) 7.0, Absolute Lymphs (auto) 3.14, Nucleated RBC % 0, Sodium 141, Potassium 3.3 L , Chloride 114 H, Carbon Dioxide 22.0, Anion Gap 5, BUN 10, Creatinine 0.51 L, Estim Creat Clear Calc 176.93, Est GFR (MDRD) Af Amer 218, Est GFR (MDRD) Non-Af 180, BUN/Creatinine Ratio 19.5, Glucose 187 H, Calcium 8.2 L, Total Bilirubin 0.40, AST 12 L, ALT 22, Alkaline Phosphatase 79, Total Protein 6.1 L, Albumin 2.9 L, Globulin 3.2, Albumin/Globulin Ratio 0.9, Triglycerides 167, Cholesterol 146, LDL Cholesterol 82, VLDL Cholesterol 33, HDL Cholesterol 31 L 08/02/23 06:31: POC Glucose 170 H 08/02/23 12:14: POC Glucose 245 H 08/02/23 16:43: POC Glucose 343 H Cardiology Labs/Tests 08/02/23 05:11: WBC 11.3 H, RBC 5.04, Hgb 14.8, Hct 45.5, MCV 90.3, MCH 29.4, MCHC 32.5, Plt Count 142 L, MPV 12.2 H, Immature Gran % (Auto) 0.900, Neut % (Auto) 61.5, Lymph % (Auto) 27.7, Baker % (Auto) 7.0, Eos % (Auto) 2.1, Baso % (Auto) 0.8, Absolute Neuts (auto) 7.0, Nucleated RBC % 0, Sodium 141, Potassium 3.3 L, Chloride 114 H, Carbon Dioxide 22.0, Anion Gap 5, BUN 10, Creatinine 0.51 L, Est GFR (MDRD) Af Amer 218, Est GFR (MDRD) Non-Af 180, BUN/Creatinine Ratio 19.5, Glucose 187 H, Calcium 8.2 L, Total Bilirubin 0.40, Triglycerides 167, Cholesterol 146, LDL Cholesterol 82, VLDL Cholesterol 33, HDL Cholesterol 31 L Rhythm: EKG: ECHO: Stress Test: Cardiac Cath: PCI: CT Surgery: Holter monitor: EPS: PPM: CXR: Chest CT Scan:
[2023-08-02 22:00] VITALS: BP 147/94; PULSE 90; RESP 18; TEMP 36.7; O2SAT 98
[2023-08-02 23:00] LABS: Bedside Glucose 453 mg/dL (74-106)
[2023-08-02] MEDS: Insulin Lispro 100 UNIT/ML INSULN.PEN 20 UNIT SC (23:04)
[2023-08-03] VITALS (15 sets, daily range): BP systolic 114–159; BP diastolic 67–106; PULSE 60–81; RESP 12–20; TEMP 36.3–37.1; O2SAT 96–98; BMI 25.9
[2023-08-03] MEDS: oxyCODONE 5 MG Tablet PO ×3 (00:36→11:31)
[2023-08-03] MEDS: Aspirin E.C. 81 MG Tablet PO (06:13)
[2023-08-03 07:09] LABS: Bedside Glucose 232 mg/dL (74-106)
[2023-08-03 07:19] LABS: Absolute Lymphocyte Count 3.04 X10^3/uL (0.83-4.51); Absolute Neutrophil Count 6.4 X10^3/uL (2.0-7.7); Basophil% 0.9 % (0-1); Eosinophil# 0.25 X10^3/uL; Eosinophils% 2.4 % (0-5); Hematocrit 45.4 % (40-54); Hemoglobin 14.6 g/dL (13.0-16.5); Lymphocyte # 3.04 X10^3/ul (0.83-4.51); Lymphocyte % 28.6 % (19-41); Mean Corp Hgb Conc 32.2 g/dL (32-36); Mean Corpuscular Hgb 28.9 pg (27.0-32.0); Mean Corpuscular Volume 89.9 fL (80-94); Mean Platelet Vol. 12.2 fl (6.2-12.0); Monocyte# 0.74 X10^3/uL; NRBC Flagged by Analyzer 0 % (0-5); Neutrophil # 6.38 X10^3/uL (2.7-7.7); Neutrophil % 60.1 % (47-70); Platelet Count 146 K/mm3 (150-450); RBC Distribution Width CV 13.5 % (11.6-14.6); RBC Distribution Width SD 44.5 fl (35.1-43.9); Red Blood Count 5.05 M/mm3 (4.6-6.2); White Blood Count 10.6 K/mm3 (4.4-11.0)
[2023-08-03 07:45] LABS: Anion Gap 3 (5-15); BUN 13 mg/dL (7-18); BUN/Creat Ratio 21.5 RATIO (10-20); Calcium,Total 8.7 mg/dL (8.5-10.1); Chloride 111 mmol/L (98-107); EST Glomerular Filtration Rate 149 mL/min (>60); Est Glom Filt Rate - Afr Amer 181 mL/min (>60); Estimated Creatinine Clearance 150.39 ml/min; Glucose 234 mg/dL (74-106); Potassium 3.5 mmol/L (3.5-5.1); Sodium Level 140 mmol/L (136-145)
[2023-08-03] MEDS: Atorvastatin Calcium 20 MG Tablet PO (09:31)
[2023-08-03] MEDS: Meloxicam 15 MG Tablet PO (09:31)
[2023-08-03] MEDS: Insulin Glargine-YFGN 100 UNIT/ML Pen 10 UNIT SC (09:31)
[2023-08-03] MEDS: Pantoprazole Sodium 20 MG Tablet PO (09:31)
--- NOTE | 2023-08-03 11:12 | CASEMGMT ---
Insurance review for hospitals In-network with [employer] insurance if transfer is recommended is as follows:?[facility], [facility], [facility], [facility], [facility], [facility] ([facility]), [facility], [facility], and . Trina Rivero, Discharge Planning Asst.
--- NOTE | 2023-08-03 11:14 | PCM.OP.PRO ---
Procedure Report Date of Procedure: 08/03/23 Left heart catheterization; 1. Moderate sedation 2. Selective left cholangiography 3. Selective right cholangiography 4. Measurement of LVEDP 5. Pullback pressure 6. Placement of TR band to close the right radial artery arteriotomy site. Consent; Risk and benefit of procedure explained detail to the patient agreed to proceed informed consent obtained. Preprocedure diagnosis; 52-year-old patient with history of CAD In 2019 patient had a PCI stent of the left circumflex artery using a drug-eluting stent 3 x 24 mm meter. As well had the sidebranch which is mid diagonal branch PCI and stent LAD had nonobstructive atherosclerosis and was treated with medical therapy Patient has been noncompliant he stopped all his medication Also had a history of diabetes hypertension hyperlipidemia. This admission he came with symptoms of chest pain and evaluated with a series of cardiac biomarkers all cardiac biomarkers with high sensitive troponins were negative Further evaluation by nuclear stress test showed evidence of ischemia. With LV function preserved Based on the clinical presentation and abnormal nuclear stress test he underwent cardiac catheterization. Access; 6 [place] sheaths placed in the right radial artery using Gigoptix sheath Diagnostic catheters used; 1. [place] catheter 5 [place] Procedure in detail; Patient brought to the Web Worker in fasting state Right radial artery area prepped and draped in the usual sterile fashion. Under fluoroscopic guidance we will proceed with 5 [place] catheter Advancing Michael cannulated the left main without difficulty. Following this the same catheter was used and cannulated the right ostium without difficulty Multiple views of both left and right coronary systems were obtained Same catheter was used to cross the aortic valve placed in the mid ventricle LVEDP measured A pullback pressure was recorded Findings hemodynamics; LVEDP within normal measuring around 12 mmHg There is no systolic gradient across aortic valve on the pullback Coronary angiography; 1. Left main is normal angiographically bifurcating into LAD and left circumflex 2. Left anterior descending has a proximal stenosis prior to the diagonal branch which is around 20-30% The LAD is a large vessel reach all the way to the apex with. 3. Diagonal branch had a patent stent it is a large diagonal which is branching vessel and the stent is patent with no significant atherosclerosis 4. The left circumflex artery had patency of the stent was noted with no significant atherosclerosis 6. RCA moderate to large size, dominant Angiographically RCA has no significant atherosclerosis Conclusion recommendations; This patient has preserved LV function Abnormal nuclear stress test with patency of the left circumflex, diagonal stent The RCA has no significant atherosclerosis in comparison to the previous angiogram in 2019 The LAD had nonobstructive sclerosis 20-30% Recommendations; Intensify medical therapy in the form of dual antiplatelet therapy with Plavix 75 mg in addition to low-dose aspirin 2. Increase the dose of rosuvastatin to 20 mg once a day If needed then you can and also beta-rashid dose metoprolol tartrate 25 mg twice daily No complication in the Web Worker patient tolerated procedure very well I discussed the finding of cardiac catheterization with the patient as well as with the family and the medical team. Tomeka Garcia MD,FACC,[facility]
[2023-08-03] MEDS: Insulin Lispro 100 UNIT/ML INSULN.PEN SC (11:32)
--- NOTE | 2023-08-03 12:05 | CASEMGMT ---
RN WHITNEY Face to Face with patient for initial transition planning/care coordination assessment. RN CM introduced self and role at [facility]. Patient lying in bed, alert and oriented, family at beside. Patient willing to participate in assessment and is able to answer all questions appropriately. Care providers, pharmacy, and demographics verified. Patient wishes to discharge home, denies need for home health at this time. Patient states he has no further needs or concerns at this time. CM to follow for discharge planning needs that may arise. PCP: Leelee Specialists: NICK, account manager Preferred Pharmacy: [facility] Insurance: [employer] Prescription Benefit: yes Living Will/HPOA: none LNOK: Living Arrangements: Patient lives with in a single story home with 2 steps to enter. Patient states he is independent at home. Transportation: self, DME/HHC: Patient has cane and walker at home. No previous HHC or SNF Disposition Plan: Patient to discharge home with family support and follow-up plans in place. Carey MANTILLA, RN, CM
--- NOTE | 2023-08-03 12:40 | DCINST_ITS ---
Discharge Instructions Diet Discharge Diet: Low fat / Low cholesterol Activity Discharge Activity: Return to Normal Activity Dressing / Incision Call your doctor if you observe: Fever of 101 or Higher, Shortness of breath, Dizziness, Fainting spells, Swelling in the ankles, Chest pain and Increased palpitations (irregular heartbeat) Follow Up Care Test Results: Test results from this visit will be discussed in further detail at your follow- up appointment, if applicable. Discharge Plan Admission Admit Date/Time: 08/02/23 15:43 Attending Provider: Marcell Snow Primary Care Provider: Marylu Mckoy Consulting Providers: Marcie London; James Miller; Tomeka Garcia Discharge Orders/Prescriptions Prescriptions: New clopidogrel [Plavix] 75 mg tablet 75 mg PO DAILY Qty: 30 0RF rosuvastatin [Crestor] 20 mg tablet 20 mg PO DAILY Qty: 30 0RF Continued omeprazole 20 mg capsule,delayed release(DR/EC) 20 mg PO DAILY Rexulti 0.5 mg tablet 1 mg PO DAILY nitroglycerin 0.4 mg tablet, sublingual 0.4 mg sublingual Q5M PRN (Reason: Cardiac/Chest Pain) Qty: 1 3RF aspirin 81 mg tablet,delayed release (DR/EC) 81 mg PO DAILY Qty: 90 3RF Glyxambi 25-5 mg tablet 1 tab PO DAILY meloxicam 15 mg tablet 15 mg PO DAILY Patient Comments: take 1 tablet by mouth once daily Discontinued rosuvastatin [Crestor] 10 mg tablet 10 mg PO DAILY Referrals / Follow Up: Marylu Mckoy, DO [Primary Care Provider] - Within 1 Week Disposition Disposition (needs filled in before D/C Order can be placed): Home, Self Care
[2023-08-03 12:52] LABS: Bedside Glucose 193 mg/dL (74-106)
--- NOTE | 2023-08-03 13:34 | PHA.DC.MC.R ---
Pharmacy [facility] has performed discharge medication reconciliation and counseling for this patient. The patient's discharge medication list was reviewed for discrepancies and discrepancies were resolved. The patient was counseled on the following discharge medications and changes in medications for homegoing were reviewed. The Reason for Use, instructions for use, and potential side effects were reviewed for all new medications. The patient's questions regarding all of their medications were answered. 1. clopidogrel 75 mg PO daily 2. rosuvastatin 20 mg PO daily The patient was able to verbally demonstrate an understanding of their discharge medications. Medications at Discharge Home Medications aspirin 81 mg tablet,delayed release 81 mg PO DAILY #90 tabs 07/29/23 brexpiprazole 0.5 mg tablet (Rexulti) 1 mg PO DAILY 07/29/23 nitroglycerin 0.4 mg sublingual tablet 0.4 mg sublingual Q5M PRN Cardiac/Chest Pain #1 BOTTLE 07/29/23 omeprazole 20 mg capsule,delayed release 20 mg PO DAILY 07/29/23 empagliflozin 25 mg-linagliptin 5 mg tablet (Glyxambi) 1 tab PO DAILY 08/01/23 meloxicam 15 mg tablet 15 mg PO DAILY 08/01/23 clopidogrel 75 mg tablet (Plavix) 75 mg PO DAILY #30 tabs 08/03/23 rosuvastatin 20 mg tablet (Crestor) 20 mg PO DAILY #30 tabs 08/03/23
--- NOTE | 2023-08-03 14:08 | DS.PCM_ITS ---
Providers Date of Admission: 08/02/23 Primary Care Physician: Marylu Mckoy DO Consultations 08/02/23 15:43 Consult: Cardiology Routine Consulting Provider: Tomeka Garcia Reason for Consult: heart cath in am EMERGENT Consult: No MD Notified: Yes Date Notified: 08/02/23 Time Notified: 15:43 Method of Notification: Verbal Reason For Visit: CHEST PAIN Diagnosis Discharge Diagnosis (1) Type 1 diabetes mellitus with hyperglycemia, without long-term current use of insulin: Status: Acute Code(s): E10.65 - Type 1 diabetes mellitus with hyperglycemia (2) Chest pain: Status: Acute Code(s): R07.9 - Chest pain, unspecified (3) Atherosclerotic heart disease of [place] coronary artery with angina pectoris: Status: Acute Code(s): I25.119 - Atherosclerotic heart disease of [place] coronary artery with unspecified angina pectoris (4) History of coronary artery stent placement: Status: Chronic Code(s): Z95.5 - Presence of coronary angioplasty implant and graft (5) Paroxysmal atrial fibrillation: Status: Chronic Code(s): I48.0 - Paroxysmal atrial fibrillation Medications at Discharge Home Medications aspirin 81 mg tablet,delayed release 81 mg PO DAILY #90 tabs 07/29/23 brexpiprazole 0.5 mg tablet (Rexulti) 1 mg PO DAILY 07/29/23 nitroglycerin 0.4 mg sublingual tablet 0.4 mg sublingual Q5M PRN Cardiac/Chest Pain #1 BOTTLE 07/29/23 omeprazole 20 mg capsule,delayed release 20 mg PO DAILY 07/29/23 empagliflozin 25 mg-linagliptin 5 mg tablet (Glyxambi) 1 tab PO DAILY 08/01/23 meloxicam 15 mg tablet 15 mg PO DAILY 08/01/23 clopidogrel 75 mg tablet (Plavix) 75 mg PO DAILY #30 tabs 08/03/23 rosuvastatin 20 mg tablet (Crestor) 20 mg PO DAILY #30 tabs 08/03/23 Hospital Course Operations None Procedures 2-D Echocardiogram, Cardiac catheterization and Stress test Summary of Care Provided Minutes Spent on Discharge: 37 Hospital Course: Per HPI: The patient is a 52 y/o M w/ PMHx: AMITA not compliant with PAP therapy, diabetes mellitus type II, CAD s/p NSTEMI 09/2018 s/p PCI mid diagonal, 02/2019 PCI circumflex, Chronic back pain following with pain management, HTN, HLD, PAF, Tobacco use, recent 07/29/23 Cardiology visit during which patient reported he stopped all of his medication including his antiplt therapies secondary to being tired of taking them with noted preference per cardiology to obtain a surveillance stress test in addition to strong encouragement to consider anticoagulation given his [id number] score of 2 who now presents to the [facility] ED on 08/01/23 with history of onset of chest discomfort described as a tightness in the substernal region with associated nausea, dyspnea, lightheadedness and diaphoresis with self administration of nitroglycerin x 3 at home with EMS call and administration of full-strength aspirin therapy upon their arrival. He notes being chest pain-free at this time. Workup in the ED included T97.6, heart rate 74, BP 99/59, respiratory rate 15, 95% on room air, CBC with WBC 12, hemoglobin 14.4, platelet 160 with left shift, BMP with glucose 538 otherwise not marked appearing, troponin 18, EKG with sinus rhythm with mild QT prolongation with QTc 464 with no acute evidence of ischemia, chest x-ray with no acute cardiopulmonary finding with final read pending. In the ED patient ministered Erwinna 1 tablet p.o. x 1. Hospital course: 1. Chest pain/CAD status post stent/HTN/HLD/A-fib?52-year-old male presented to the hospital with chest pressure mid to get a little bit better with taking his nitroglycerin at home and he did have a previous coronary artery history with stents placed in 2019 at the time he had 2 stents placed with a third area of disease that could not be stented. He underwent a stress test which was positive for signs of ischemia so he was scheduled for a heart cath today on the day of discharge. The cath demonstrated patent stents as well as read demonstration of that region for coronary disease that could not be fixed. No other areas that needed intervention. In discussing the case with cardiology they felt of adding Plavix to his aspirin therapy and increasing his Crestor from 10 mg to 20 mg may be enough. I discussed these medication changes with him and he expressed understanding. 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 I recommend outpatient follow-up with his PCP and potential evaluation by cardiology if he develops palpitations or has EKG findings consistent with A-fib. At this time will not place him on anticoagulation as he is somewhat resistant to taking a significant amount of meds without a strong indication for it. I discussed with him the plan for discharge today he expressed understanding of the risk and benefits of going home and wants to go home today. 2. Anxiety, depression, GERD, type 2 diabetes are all chronic medical conditions which complicate his care. His home medications were continued where appropriate Physical Exam Narrative General: Alert, Oriented x3, Cooperative, No apparent distress HEENT: Atraumatic, PERRLA, EOMI, Normocephalic Oral: Moist Mucosa Neck: Supple, No JVD Lungs: Clear to auscultation, Normal air movement, No rhonchi, No wheeze, No rales Cardiovascular: Regular rate, Regular Rhythm, Normal S1, Normal S2, No murmurs Abdomen: Soft, Non Tender, Non-Distended, No Hepato-splenomegaly Extremities: No edema, Capillary Refill Less than 3 Seconds Skin: No rashes, No breakdown Musculoskeletal: No Tenderness to Palpation of Joints or Extremities Neurological: Cranial nerves II-XII grossly intact, Motor Exam 5/5 strength throughout, Sensory exam intact to light touch and pain Psych/Mental Status: Normal Affect, Appropriate Weight / BMI Weight Weight: 180 lb 15.992 oz Body Mass Index (BMI) 25.9 ABG / Lab / Microbiology Data 08/03/23 06:36 08/03/23 06:36 Laboratory: Laboratory Results - last 24 hr 08/02/23 16:43: POC Glucose 343 H 08/02/23 22:37: POC Glucose 453 H* 08/03/23 06:23: POC Glucose 232 H 08/03/23 06:36: WBC 10.6, RBC 5.05, Hgb 14.6, Hct 45.4, MCV 89.9, MCH 28.9, MCHC 32.2, RDW Std Deviation 44.5 H, RDW Coeff of Sarahi 13.5, Plt Count 146 L, MPV 12.2 H, Immature Gran % (Auto) 1.000 H, Neut % (Auto) 60.1, Lymph % (Auto) 28.6, [place] % (Auto) 7.0, Eos % (Auto) 2.4, Baso % (Auto) 0.9, Absolute Neuts (auto) 6.4, Absolute Lymphs (auto) 3.04, Nucleated RBC % 0, Sodium 140, Potassium 3.5, Chloride 111 H, Carbon Dioxide 26.0, Anion Gap 3 L, BUN 13, Creatinine 0.60 L, Estim Creat Clear Calc 150.39, Est GFR (MDRD) Af Amer 181, Est GFR (MDRD) Non-Af 149, BUN/Creatinine Ratio 21.5 H, Glucose 234 H, Calcium 8.7 08/03/23 11:30: POC Glucose 193 H D/C Instructions Discharge Diet: Low fat / Low cholesterol Call your doctor if you observe: Fever of 101 or Higher, Shortness of breath, Dizziness, Fainting spells, Swelling in the ankles, Chest pain and Increased palpitations (irregular heartbeat) Meaningful Use Info Meaningful Use Diagnoses (Choose all that apply): None applicable Discharge Plan Admission Admit Date/Time: 08/02/23 15:43 Attending Provider: Marcell Snow Primary Care Provider: Marylu Mckoy Consulting Providers: Marcie London; James Miller; Tomeka Garcia Discharge Orders/Prescriptions Prescriptions: New clopidogrel [Plavix] 75 mg tablet 75 mg PO DAILY Qty: 30 0RF rosuvastatin [Crestor] 20 mg tablet 20 mg PO DAILY Qty: 30 0RF Continued omeprazole 20 mg capsule,delayed release(DR/EC) 20 mg PO DAILY Rexulti 0.5 mg tablet 1 mg PO DAILY nitroglycerin 0.4 mg tablet, sublingual 0.4 mg sublingual Q5M PRN (Reason: Cardiac/Chest Pain) Qty: 1 3RF aspirin 81 mg tablet,delayed release (DR/EC) 81 mg PO DAILY Qty: 90 3RF Glyxambi 25-5 mg tablet 1 tab PO DAILY meloxicam 15 mg tablet 15 mg PO DAILY Patient Comments: take 1 tablet by mouth once daily Discontinued rosuvastatin [Crestor] 10 mg tablet 10 mg PO DAILY Referrals / Follow Up: Marylu Mckoy, DO [Primary Care Provider] - Within 1 Week Disposition Disposition (needs filled in before D/C Order can be placed): Home, Self Care Charges/Coding Visit Charges Inpatient E&M: 09065 Disch Hosp >30min
== END 2023-08-03 16:08 | disposition home or self-care (01) | DRG 287 ==
LOC: ED 06:31 → PCU 06:41
PROVIDERS: Internal Medicine; Admitting Provider Family Medicine; Emergency Provider Emergency Medicine; PCP Family Medicine; Visit Provider Family Medicine
DX: I25.119 Atherosclerotic heart disease of native coronary artery with unspecified angina pectoris (principal); J43.9 Emphysema, unspecified; I48.0 Paroxysmal atrial fibrillation; E11.65 Type 2 diabetes mellitus with hyperglycemia; I10 Essential (primary) hypertension; F32.A Depression, unspecified; F17.210 Nicotine dependence, cigarettes, uncomplicated; I25.5 Ischemic cardiomyopathy; G47.33 Obstructive sleep apnea (adult) (pediatric); I25.10 Atherosclerotic heart disease of native coronary artery without angina pectoris; E78.00 Pure hypercholesterolemia, unspecified; F41.9 Anxiety disorder, unspecified; K21.9 Gastro-esophageal reflux disease without esophagitis; I25.2 Old myocardial infarction; G89.29 Other chronic pain; Z91.148 Patient's other noncompliance with medication regimen for other reason; T38.3X6A Underdosing of insulin and oral hypoglycemic [antidiabetic] drugs, initial encounter; T45.526A Underdosing of antithrombotic drugs, initial encounter; Z91.199 Patient's noncompliance with other medical treatment and regimen due to unspecified reason; Z79.02 Long term (current) use of antithrombotics/antiplatelets; Z79.899 Other long term (current) drug therapy; Z95.5 Presence of coronary angioplasty implant and graft; Z79.84 Long term (current) use of oral hypoglycemic drugs
CPT/HCPCS: 36415; 71045; 78452; 80048; 80053; 80061; 82962; 83735; 84484; 85025; 93005; 93017; 93454; 96360; 96361; 96372; 97802; 99152; 99153; 99221; 99285; A9500; J7030; A4216; C1769; C1894; G0378; J2785; Q9967

== ENCOUNTER 2024-04-03 23:15 | Emergency (ER) | payer MEDICARE, SELFPAY ==
[2021-04-08 14:51] VITALS: BMI 28.3
[2024-04-03 23:16] VITALS: BP 153/90; PULSE 82; RESP 18; TEMP 37; O2SAT 100; BMI 26.2
--- NOTE | 2024-04-04 00:15 | CT_ITS ---
ACR Level 3 findings have been noted. An addendum which confirms receipt of the report will follow. EXAM: CT ANGIOGRAPHY HEAD AND NECK WITH INTRAVENOUS CONTRAST CLINICAL INDICATION: neck pain/left facial paresthesias neck pain/left facial paresthesias TECHNIQUE: [place]/head and neck CT angiography protocol performed with intravenous contrast. This CT exam was performed using one or more of the following dose reduction techniques: automated exposure control, adjustment of the mA and/or kV according to patient size, and/or use of iterative reconstruction technique. MIP reconstructed images were created and reviewed. CONTRAST: IV 100mL Isovue-370 RADIATION DOSE: CTDIvol = 22.32 mGy, DLP = 1613.04 mGy-cm COMPARISON: . FINDINGS: HEAD: RIGHT ANTERIOR CEREBRAL ARTERY: Unremarkable. No occlusion or significant stenosis. Anterior communicating artery is present. No aneurysm. RIGHT MIDDLE CEREBRAL ARTERY: Unremarkable. No occlusion or significant stenosis. No aneurysm. RIGHT POSTERIOR CEREBRAL ARTERY: Unremarkable. No occlusion or significant stenosis. No aneurysm. A posterior communicating artery is visualized. RIGHT INTRACRANIAL INTERNAL CAROTID ARTERY: Unremarkable. No significant stenosis. No dissection or occlusion. RIGHT INTRACRANIAL VERTEBRAL ARTERY: Unremarkable. No significant stenosis. No dissection or occlusion. LEFT ANTERIOR CEREBRAL ARTERY: Unremarkable. No occlusion or significant stenosis. No aneurysm. LEFT MIDDLE CEREBRAL ARTERY: Unremarkable. No occlusion or significant stenosis. No aneurysm. LEFT POSTERIOR CEREBRAL ARTERY: Unremarkable. No occlusion or significant stenosis. No aneurysm. A posterior communicating artery is visualized. LEFT INTRACRANIAL INTERNAL CAROTID ARTERY: Unremarkable. No significant stenosis. No dissection or occlusion. LEFT INTRACRANIAL VERTEBRAL ARTERY: Unremarkable. No significant stenosis. No dissection or occlusion. BASILAR ARTERY: Unremarkable. No occlusion or significant stenosis. No aneurysm. OTHER VASCULATURE: There is asymmetrically prominent contrast enhancement of the right cavernous sinus. There is no demonstrated bulging of the cavernous sinus or obvious asymmetric prominence of right orbital veins. Contrast enhancement of the cavernous sinus is similar to that of the transverse sinus rather than the carotid artery. This probably represents a normal variant rather than an indirect carotid-cavernous sinus fistula.. SINUSES: There are small polyps or retention cysts in right maxillary and right ethmoid sinuses. There is no evidence for acute sinusitis. NECK: RIGHT COMMON CAROTID ARTERY: Unremarkable. No significant stenosis. No dissection or occlusion. RIGHT EXTRACRANIAL INTERNAL CAROTID ARTERY: Unremarkable. No significant stenosis. No dissection or occlusion. RIGHT EXTERNAL CAROTID ARTERY: Unremarkable. No occlusion. RIGHT EXTRACRANIAL VERTEBRAL ARTERY: Unremarkable. No significant stenosis. No dissection or occlusion. LEFT COMMON CAROTID ARTERY: Unremarkable. No significant stenosis. No dissection or occlusion. LEFT EXTRACRANIAL INTERNAL CAROTID ARTERY: Unremarkable. No significant stenosis. No dissection or occlusion. LEFT EXTERNAL CAROTID ARTERY: Unremarkable. No occlusion. LEFT EXTRACRANIAL VERTEBRAL ARTERY: Arises directly from the aortic arch, a develop mental variant.. No significant stenosis. No dissection or occlusion. BRACHIOCEPHALIC AND SUBCLAVIAN ARTERIES: Unremarkable as visualized. No occlusion or significant stenosis. LUNG APICES: Unremarkable as visualized. HEAD and NECK: BONES/JOINTS: There are multilevel degenerative changes in the cervical spine. No discrete lytic or blastic abnormalities. DENTAL: Numerous teeth are missing. There are numerous untreated dental caries in the patient''s remaining teeth. There is substantial bone resorption around many of the patient''s remaining teeth consistent with periodontal disease and endodontal disease. SOFT TISSUES: Unremarkable. CAROTID STENOSIS REFERENCE USING NASCET CRITERIA: % ICA stenosis = (1 - narrowest ICA diameter/diameter of distal cervical ICA) x 100. Mild - <50% stenosis. Moderate - 50-69% stenosis. Severe - 70-94% stenosis. Near occlusion - 95-99% stenosis. Occluded - 100% stenosis. CT/CTA Head AND Neck W/ Contrast IMPRESSION: No acute findings in the arteries of the head and neck. Asymmetric enhancement of the right cavernous sinus is likely to represent a normal variant. However, indirect carotid-cavernous sinus fistula cannot be excluded entirely. Suggest funduscopic examination.. If there are associated ophthalmic abnormalities, then catheter angiography might be warranted. Electronically Signed: Grayson Tan MD at 2:36 EDT ,
--- NOTE | 2024-04-04 00:15 | RAD_ITS ---
INDICATION: cad EXAMINATION/TECHNIQUE: X-RAY - XR Chest 1 View AP portable. 12:38 AM COMPARISON: Prior study dated: 08/01/2023 FINDINGS: LINES/DEVICES: None. LUNGS: No consolidation. No pneumothorax. MEDIASTINUM: Unremarkable. CARDIAC SILHOUETTE: Not enlarged. BONES AND SOFT TISSUES: No acute abnormalities. RAD/Chest 1 View (Portable) IMPRESSION: No evidence of active intrathoracic disease. Electronically Signed: Jamila Snow MD at 2:38 EDT ,
--- NOTE | 2024-04-04 00:16 | EKG12_ITS ---
Test Reason : CP Blood Pressure : / mmHG Vent. Rate : 066 BPM Atrial Rate : 066 BPM P-R Int : 138 ms QRS Dur : 086 ms QT Int : 362 ms P-R-T Axes : 046 027 119 degrees QTc Int : 379 ms Normal sinus rhythm Septal infarct , age undetermined Abnormal ECG Confirmed by BIANKA LEGGETT, AMIE ([id number]), field map editor MARIANNE CARR ([id number]) on 04/04/2024 8:53:49 AM Referred By: Confirmed By:AMIE CARLTON MD
[2024-04-04] MEDS: Ketorolac 30 MG/ML Syringe IV (00:28)
[2024-04-04 00:33] VITALS: BP 135/85; PULSE 69; RESP 14; O2SAT 98
[2024-04-04 00:41] LABS: Absolute Lymphocyte Count 3.12 X10^3/uL (0.83-4.51); Absolute Neutrophil Count 4.7 X10^3/uL (2.0-7.7); Basophil# 0.08 X10^3/uL; Basophil% 0.9 % (0-1); Eosinophil# 0.38 X10^3/uL; Eosinophils% 4.2 % (0-5); Hematocrit 46.2 % (40-54); Hemoglobin 15.2 g/dL (13.0-16.5); Lymphocyte # 3.12 X10^3/ul (0.83-4.51); Lymphocyte % 34.2 % (19-41); Mean Corp Hgb Conc 32.9 g/dL (32-36); Mean Corpuscular Hgb 29.5 pg (27.0-32.0); Mean Corpuscular Volume 89.5 fL (80-94); Mean Platelet Vol. 10.8 fl (6.2-12.0); Monocyte# 0.77 X10^3/uL; Monocyte% 8.5 % (0-10); NRBC Flagged by Analyzer 0 % (0-5); Neutrophil # 4.69 X10^3/uL (2.7-7.7); Neutrophil % 51.4 % (47-70); Platelet Count 185 K/mm3 (150-450); RBC Distribution Width CV 12.3 % (11.6-14.6); RBC Distribution Width SD 40.8 fl (35.1-43.9); Red Blood Count 5.16 M/mm3 (4.6-6.2); White Blood Count 9.1 K/mm3 (4.4-11.0)
[2024-04-04 00:58] LABS: Anion Gap 8 (5-15); BUN 12 mg/dL (7-18); BUN/Creat Ratio 16.3 RATIO (10-20); Chloride 104 mmol/L (98-107); Creatinine, Serum 0.74 mg/dL (0.70-1.30); EST Glomerular Filtration Rate 118 mL/min (>60); Est Glom Filt Rate - Afr Amer 143 mL/min (>60); Estimated Creatinine Clearance 120.57 ml/min; Glucose 367 mg/dL (74-106); Potassium 4.1 mmol/L (3.5-5.1); Sodium Level 136 mmol/L (136-145); Troponin-I HS 17 pg/mL (3.0-78.0)
--- NOTE | 2024-04-04 01:58 | EDS_ITS ---
HPI History of Present Illness Chief Complaint: Other, Pain/Inj Informant: patient and spouse/S.O. Narrative Narrative: 53-year-old male presenting to the emergency room with the chief complaint of neck pain and facial paresthesias. Patient states that for 1 week he has had pain in the bilateral neck musculature ever since he cut down a tree. Its progressively worsened. He woke from a nap this evening and noted tingling on the left side of his face around his lip and cheek. He states his arms feel heavy. He was very concerned as he states he has a history of coronary artery disease and had a heart attack and had mostly neck symptoms. Patient denies any headache. No speech difficulty. He describes the numbness as [id number] like sensation. He denies any tip of the nose or ear symptoms. He denies any rash. Patient is a diabetic. He does not know which side he was laying on. [facility] Medical History Atherosclerotic heart disease of [place] coronary artery with angina pectoris Impingement of left shoulder Impingement of right shoulder Essential hypertension Erectile dysfunction Hypokalemia Atherosclerosis of [place] coronary artery of [place] heart without angina pectoris Paroxysmal atrial fibrillation History of non-ST elevation myocardial infarction (NSTEMI) (09/14/18) Tobacco use Herniated disc HLD (hyperlipidemia) DM2 (diabetes mellitus, type 2) Depression Chronic pain Home Medications ?Medication ?Instructions ?Recorded ?Last Taken ?Type aspirin 81 mg tablet,delayed 81 mg PO DAILY #90 tabs 07/29/23 Unknown Rx release brexpiprazole 0.5 mg tablet 1 mg PO DAILY 07/29/23 Unknown History (Rexulti) nitroglycerin 0.4 mg sublingual 0.4 mg sublingual Q5M PRN 07/29/23 Unknown Rx tablet Cardiac/Chest Pain #1 BOTTLE omeprazole 20 mg capsule,delayed 20 mg PO DAILY 07/29/23 Unknown History release empagliflozin 25 mg-linagliptin 5 1 tab PO DAILY 08/01/23 Unknown History mg tablet (Glyxambi) meloxicam 15 mg tablet 15 mg PO DAILY 08/01/23 Unknown History sildenafil 100 mg tablet 50 mg (1/2 x 100 mg) PO DAILY PRN 08/09/23 Unknown Rx sexual activity (pt no longer using nitroglycerin) #30 tabs clopidogrel 75 mg tablet (Plavix) 75 mg PO DAILY #90 tabs 09/10/23 Unknown Rx rosuvastatin 20 mg tablet (Crestor) 20 mg PO DAILY #90 tabs 09/23/23 Unknown Rx cyclobenzaprine 10 mg tablet 10 mg PO TID PRN Muscle Spasm #15 04/04/24 Unknown Rx TABLETS oxycodone-acetaminophen 5 mg-325 1 tab PO Q6H PRN pain 3 days #12 04/04/24 Unknown Rx mg tablet (Percocet) tabs Allergy/AdvReac Type Severity Reaction Status Date / Time pregabalin (From Lyrica) AdvReac Itching Verified 04/03/24 23:16 Family History Father Esophageal cancer Diabetes Myocardial infarction Mother Arthritis Diabetes Surgical History History of coronary artery stent placement (02/13/19) History of back surgery History of arthroscopic knee surgery s/p back H/O arthroscopic knee surgery Social History household members: spouse Smoking Status: Current every day smoker tobacco type: cigarettes Tobacco: How many years used: 30 alcohol intake: current alcohol intake frequency: a few times a week Alcohol type: beer substance use type: does not use what type of physical activity do you participate in: none ROS ROS ED Constitutional Constitutional ED: Denies chills, fever(s) or weight loss Eyes Eyes: Denies blurry vision, change in vision or diplopia ENT ENT ED: Denies ear pain, rhinorrhea or sore throat Cardiovascular Cardiovascular: Denies chest pain, orthopnea, palpitations or racing heartbeat Respiratory/Chest Respiratory/Chest: Denies cough, dyspnea or orthopnea Gastrointestinal Gastrointestinal: Denies abdominal pain, diarrhea, nausea or vomiting Genitourinary Genitourinary ED: Denies dysuria, hematuria or urinary frequency Musculoskeletal Musculoskeletal: Reports neck pain; Denies arthralgias or myalgias Integumentary Denies abscess or rash Neurologic Neurologic: Reports paresthesias; Denies headache(s) or weakness Psychiatric Psychiatric: Denies anxiety, depression, suicidal ideation or suicidal thoughts Endocrine Endocrinology: Denies polydipsia, polyphagia or polyuria Allergic/Immunologic Allergic/Immunologic ED: Denies mouth swelling, tongue swelling or urticaria EXAM Physical Exam Narrative Exam Narrative: NIH is 0 Const Vital Signs: 04/03/24 23:16 04/04/24 00:33 04/04/24 00:34 Temperature 98.6 F Temperature Source Oral Pulse Rate 82 69 Respiratory Rate 18 14 Respiratory Effort Normal Respiratory Pattern Normal Blood Pressure 153/90 H 135/85 H Blood Pressure Mean 111 101 Pulse Ox 100 98 Oxygen Delivery Method Room Air Room Air 04/04/24 02:00 Temperature Temperature Source Pulse Rate 63 Respiratory Rate 18 Respiratory Effort Respiratory Pattern Blood Pressure 131/73 H Blood Pressure Mean 92 Pulse Ox 98 Oxygen Delivery Method Room Air Positive well nourished and well developed General Appearance ED: well developed HEENT Reports normocephalic, head/scalp atraumatic, TM's clear and moist mucous membranes HEENT Narrative: I do not appreciate any facial/neck rash Tympanic Membrane ED: Yes TM's clear Eyes PERRL and EOMs intact bilaterally Neck no lymphadenopathy, supple and no JVD Neck Narrative: Neck musculature specifically the trapezius is very tender to palpation. I do not appreciate sternocleidomastoid tenderness. There is no mastoid tenderness. Resp normal respiratory effort and clear to auscultation bilaterally Cardio regular rate, regular rhythm and no murmurs GI normal to inspection, nondistended, normoactive bowel sounds and non-tender Palpation: soft Back/Spine no CVA tenderness and normal ROM Extremity normal to inspection General Extremety ED: Negative for edema General Extremity: Negative for edema Neuro oriented x3 and CN's II-XII intact bilaterally Sensorium / Orientation: alert Motor Exam: strength 5/5 throughout Psych mental status grossly normal Mood & Affect: Negative for depressed or tearful Skin no rashes or lesions noted and no wounds MDM MDM MDM Narrative Medical decision making narrative: Differential diagnosis includes but not limited to electrolyte abnormalities neuropraxia stroke aortic dissection carotid artery dissection aneurysm intracranial hemorrhage cervical myofascial strain muscle spasm acute coronary syndrome The patient is EKG is nonischemic and is sinus with a normal troponin. Calcium magnesium sodium potassium within normal limits creatinine 0.74. Glucose of 367. White count 9.1 hemoglobin 15.2. My independent interpretation of the chest x-ray is no acute process. CT of the head and neck was obtained which does not demonstrate any dissection or LVO intracranial hemorrhage or obvious acute subacute stroke. Degenerative changes of the cervical spine were noted. Clinically I wonder if this patient was laying on his left side has this mild neuropraxia of facial nerve. His muscles are very tender to palpation and appear tight. This could be muscle spasm causing the neck pain of greater than 1 week. Would recommend primary care follow-up. He was treated with pain medicine and muscle relaxants here. He will be discharged home with same. Patient is are comfortable with this plan History & Record Review Discussion w/independent historian: Patient and Significant other Lab Data Attestation: I reviewed the patient's lab results. Labs: Laboratory Results - last 24 hr 04/04/24 00:25 WBC 9.1 RBC 5.16 Hgb 15.2 Hct 46.2 MCV 89.5 MCH 29.5 MCHC 32.9 RDW Std Deviation 40.8 RDW Coeff of Sarahi 12.3 Plt Count 185 MPV 10.8 Immature Gran % (Auto) 0.800 Neut % (Auto) 51.4 Lymph % (Auto) 34.2 [place] % (Auto) 8.5 Eos % (Auto) 4.2 Baso % (Auto) 0.9 Absolute Neuts (auto) 4.7 Absolute Lymphs (auto) 3.12 Nucleated RBC % 0 Sodium 136 Potassium 4.1 Chloride 104 Carbon Dioxide 24.0 Anion Gap 8 BUN 12 Creatinine 0.74 Estim Creat Clear Calc 120.57 Est GFR (MDRD) Af Amer 143 Est GFR (MDRD) Non-Af 118 BUN/Creatinine Ratio 16.3 Glucose 367 H Calcium 9.0 Magnesium 2.0 Troponin I High Sens 17 Radiography Diagnostic Testing: Clinical Impression(s) from Imaging Studies Chest X-Ray 04/04/24 00:15 IMPRESSION: No evidence of active intrathoracic disease. Electronically Signed: Jamila Snow MD at 2:38 EDT , Head/Neck CTA 04/04/24 00:15 IMPRESSION: No acute findings in the arteries of the head and neck. Asymmetric enhancement of the right cavernous sinus is likely to represent a normal variant. However, indirect carotid-cavernous sinus fistula cannot be excluded entirely. Suggest funduscopic examination.. If there are associated ophthalmic abnormalities, then catheter angiography might be warranted. Electronically Signed: Grayson Tan MD at 2:36 EDT , ADDENDUM: 04/04/24 0251 IMPRESSION: No acute findings in the arteries of the head and neck. Asymmetric enhancement of the right cavernous sinus is likely to represent a normal variant. However, indirect carotid-cavernous sinus fistula cannot be excluded entirely. Suggest funduscopic examination.. If there are associated ophthalmic abnormalities, then catheter angiography might be warranted. N.B. : AMY MCNALLY RN, confirmed on 04/04/2024 02:44:51 (ET) that the healthcare facility has received the radiology report. Electronically Signed: Grayson Tan MD at 2:36 EDT , EKG Initial EKG: Attestation: I personally reviewed and interpreted this EKG as follows: Comments: Normal sinus rhythm at a rate of 66 beats per Discharge Plan Triage Chief Complaint: Other, Pain/Inj ED Provider: Gerber Kaiser Dx/Rx/DC Orders Clinical Impression: Facial paresthesia, Atherosclerosis of [place] coronary artery of [place] heart without angina pectoris, Cervical paraspinal muscle spasm, Cervical pain Instructions: ED Paraesthesias Prescriptions: New cyclobenzaprine 10 mg tablet 10 mg PO TID PRN (Reason: Muscle Spasm) Qty: 15 0RF oxycodone-acetaminophen [Percocet] 5-325 mg tablet 1 tab PO Q6H PRN (Reason: pain) 3 Days Qty: 12 0RF No Action omeprazole 20 mg capsule,delayed release(DR/EC) 20 mg PO DAILY Rexulti 0.5 mg tablet 1 mg PO DAILY nitroglycerin 0.4 mg tablet, sublingual 0.4 mg sublingual Q5M PRN (Reason: Cardiac/Chest Pain) Qty: 1 3RF aspirin 81 mg tablet,delayed release (DR/EC) 81 mg PO DAILY Qty: 90 3RF Glyxambi 25-5 mg tablet 1 tab PO DAILY meloxicam 15 mg tablet 15 mg PO DAILY Patient Comments: take 1 tablet by mouth once daily sildenafil 100 mg tablet 50 mg PO DAILY PRN (Reason: sexual activity (pt no longer using nitroglycerin)) Qty: 30 6RF Rx Instructions: administer 30 minutes to 4 hours before activity clopidogrel [Plavix] 75 mg tablet 75 mg PO DAILY Qty: 90 3RF rosuvastatin [Crestor] 20 mg tablet 20 mg PO DAILY Qty: 90 3RF Primary Care Provider: Flori Mckoy Referrals: Flori Mckoy DO [Primary Care Provider] - 3-5 Days Print Language: Spanish Disposition Disposition: Home, Self Care
[2024-04-04 02:00] VITALS: BP 131/73; PULSE 63; RESP 18; O2SAT 98
[2024-04-04] MEDS: oxyCODONE 5 MG Tablet 10 MG PO (02:56)
[2024-04-04] MEDS: Orphenadrine 60 MG/2 ML Ampul IM (02:56)
[2024-04-04 03:38] VITALS: BP 126/72; PULSE 69; RESP 18; TEMP 36.1; O2SAT 97
== END 2024-04-04 03:40 | disposition home or self-care (01) ==
PROVIDERS: Emergency Provider Emergency Medicine; PCP Family Medicine; Visit Provider Emergency Medicine
DX: M62.838 Other muscle spasm (principal); E11.9 Type 2 diabetes mellitus without complications; X58.XXXA Exposure to other specified factors, initial encounter; R20.2 Paresthesia of skin; I25.10 Atherosclerotic heart disease of native coronary artery without angina pectoris; I25.2 Old myocardial infarction; I10 Essential (primary) hypertension; E78.5 Hyperlipidemia, unspecified; F17.210 Nicotine dependence, cigarettes, uncomplicated; Z95.5 Presence of coronary angioplasty implant and graft; Z79.02 Long term (current) use of antithrombotics/antiplatelets; Z79.82 Long term (current) use of aspirin; Z79.84 Long term (current) use of oral hypoglycemic drugs; Z79.899 Other long term (current) drug therapy
CPT/HCPCS: 70496; 70498; 71045; 80048; 83735; 84484; 85025; 93005; 96372; 96374; 99285; Q9967; A4216

== ENCOUNTER → 2024-05-25 | Outpatient (CLI) | payer MEDICARE, SELFPAY ==
[2021-04-08 14:51] VITALS: BMI 28.3
[2024-05-25 13:08] LABS: Absolute Lymphocyte Count 4.12 X10^3/uL (0.83-4.51); Absolute Neutrophil Count 7.4 X10^3/uL (2.0-7.7); Basophil# 0.11 X10^3/uL; Basophil% 0.8 % (0-1); Hematocrit 51.6 % (40-54); Hemoglobin 16.8 g/dL (13.0-16.5); Lymphocyte # 4.12 X10^3/ul (0.83-4.51); Lymphocyte % 31.3 % (19-41); Mean Corp Hgb Conc 32.6 g/dL (32-36); Mean Corpuscular Hgb 28.8 pg (27.0-32.0); Mean Corpuscular Volume 88.4 fL (80-94); Mean Platelet Vol. 11.1 fl (6.2-12.0); Monocyte# 1.02 X10^3/uL; Monocyte% 7.7 % (0-10); NRBC Flagged by Analyzer 0 % (0-5); Neutrophil # 7.44 X10^3/uL (2.7-7.7); Neutrophil % 56.6 % (47-70); Platelet Count 212 K/mm3 (150-450); RBC Distribution Width CV 12.6 % (11.6-14.6); RBC Distribution Width SD 40.9 fl (35.1-43.9); Red Blood Count 5.84 M/mm3 (4.6-6.2); White Blood Count 13.2 K/mm3 (4.4-11.0)
[2024-05-25 13:27] LABS: AST(SGOT) 12 U/L (15-37); Alanine Aminotransfer ALT/SGPT 31 U/L (16-61); Albumin, Serum 3.7 g/dL (3.2-5.0); Alkaline Phosphatase 120 U/L (45-117); Anion Gap 8 (5-15); BUN 12 mg/dL (7-18); BUN/Creat Ratio 13.4 RATIO (10-20); Calcium,Total 9.3 mg/dL (8.5-10.1); Chloride 103 mmol/L (98-107); Cholesterol 216 mg/dL (200); Creatinine, Serum 0.89 mg/dL (0.70-1.30); EST Glomerular Filtration Rate 95 mL/min (>60); Est Glom Filt Rate - Afr Amer 115 mL/min (>60); Globulin 3.7 g/dL (2.2-4.2); Glucose 383 mg/dL (74-106); High Density Lipoprotein 40 mg/dL; Potassium 3.8 mmol/L (3.5-5.1); Protein, Total 7.4 g/dL (6.4-8.2); Sodium Level 136 mmol/L (136-145); Triglycerides 387 mg/dL; Very Low Density Lipoprotein 77 mg/dL (5-40)
[2024-05-25 13:31] LABS: Microalbumin,Random Urine 15.6 mg/L (NO RANGE EST.)
== END | disposition home or self-care (01) ==
LOC: VSLAB 10:57
PROVIDERS: PCP Family Medicine; Visit Provider Family Medicine
DX: I10 Essential (primary) hypertension (principal); E11.9 Type 2 diabetes mellitus without complications
CPT/HCPCS: 36415; 80053; 80061; 82043; 84443; 85025

== ENCOUNTER 2025-07-01 05:05 | Emergency (ER) | payer MEDICARE, SELFPAY ==
[2021-04-08 14:51] VITALS: BMI 28.3
[2025-07-01 05:06] VITALS: BP 154/89; PULSE 87; RESP 17; TEMP 36.6; O2SAT 98; BMI 23.6
[2025-07-01] MEDS: Ketorolac 30 MG/ML Syringe IM (05:43)
--- OUTSIDE RECORDS SUMMARY | 2025-07-01 05:47 | XMS RPT_ITS | CCD ---
Author Organization [facility] Care Team Providers Care Palliative Care Coordinator Name Role Phone Angelika Vaughan Unavailable Michael De Jesus MD Primary Care Provider Michael De Jesus MD Primary Care Provider DO Marylu Mckoy Primary Care Provider DO Marylu Mckoy Referring Provider MD Raudel Mayes Attending Provider Alexis FIELD RECRUITER, CHOCO Hutson Attending Provider Dr. Stan Mayers Emergency Provider Dr. Marcie London Attending Provider Dr. Marcie London Admit Provider Dr. Marcie London Other Provider Dr. Marcell Snow Other Provider Dr. James Miller Other Provider Dr. Tomeka Garcia Attending Provider Dr. Marcell Snow Attending Provider Dr. Tomeka Garcia Other Provider Tomeka Garcia Attending Unavailable Marcie London Admitting Unavailable Marcie London Consulting Unavailable Marylu Mckoy Primary Care Unavailable James Miller Consulting Unavailable Marcell Snow Consulting Unavailable Marcell Snow Attending Unavailable Tomeka Garcia Consulting Unavailable Tomeka Garcia Attending Unavailable White, Marcie L Admitting Unavailable Marcie London Consulting Unavailable Marylu Mckoy Primary Care Unavailable Paul, James Consulting Unavailable Belal, Farouk Consulting Unavailable Marcell Snow Consulting Unavailable Caryl Espinoza NP Attending Unavailable Marylu Mckoy Primary Care Unavailable Marylu Mckoy Referring Unavailable Caryl Espinoza NP Attending Unavailable Marylu Mckoy Primary Care Unavailable Marylu Mckoy Referring Unavailable Leelee Flori Cooper Attending Unavailable Leelee [facility], Flori Primary Care Unavailable Alexis LEDESMA, Caryl Attending Unavailable Marylu Mckoy Primary Care Unavailable Gerber Kaiser Attending Unavailable Leelee VSKenneth, Flori Primary Care Unavailable Marcell Snow Attending Unavailable Marcie London L Admitting Unavailable Marcie London L Consulting Unavailable Marylu Mckoy Primary Care Unavailable Paul, James Consulting Unavailable Belal, Farouk Consulting Unavailable Marcell Snow Attending Unavailable Marcie London Attending Unavailable Marylu Mckoy Primary Care Unavailable Allergies Allergy Classification Reported Allergen(s) Allergy Type Date of Onset Reaction(s) Facility (10 sources) pregabalin Drug Allergy 01-30-2013 Itching [facility] (1 source) pregabalin Drug Allergy 04-03-2024 Repository Medications Current Medications Medication Drug Class(es) Dates Sig (Normalized) Sig (Original) aspirin 81 mg delayed release oral tablet (20 sources) Platelet Aggregation Inhibitor, Nonsteroidal Anti-inflammatory Drug Start: 07-29-2023 take 81 mg by mouth once daily Aspirin Active 81 MG PO DAILY July 29, 2023 2:32pm Start: 09-16-2018 End: 09-30-2020 take 81 mg by mouth once daily Aspirin Discontinued 81 MG PO DAILY August 28, 2019 1:19pm September 30, 2020 3:48pm Comment on above: Take 81 mg by mouth once daily. brexpiprazole 0.5 mg oral tablet (2 sources) Atypical Antipsychotic Start: 07-29-19 take 1 tablet by mouth once daily Brexpiprazole (Rexulti) 0.5 mg tablet Active 1 MG PO DAILY July 29, 2023 12:00am clopidogrel 75 mg oral tablet (1 source) P2Y12 Platelet Inhibitor Start: 01-30-20 24 take 1 tablet by mouth once daily Clopidogrel (Plavix) 75 mg tablet Active 75 MG PO DAILY August 03, 2023 12:00am empagliflozin 25 mg / linagliptin 5 mg oral tablet (2 sources) Dipeptidyl Peptidase 4 Inhibitor, Sodium-Glucose Cotransporter 2 Inhibitor Start: 08-01-19 24 take 1 tablet by mouth once daily Empagliflozin-Linagli ptin (Glyxambi) 25-5 mg tablet Active 1 TABLET PO DAILY August 01, 2023 12:00am meloxicam 15 mg oral tablet (7 sources) Nonsteroidal Anti-inflammatory Drug Start: 08-01-19 24 take 15 mg by mouth once daily Meloxicam Active 15 MG PO DAILY August 01, 2023 12:00am Start: 06-15-2023 End: 07-07-2023 take 15 mg by mouth once daily Meloxicam Discontinued 15 MG PO DAILY June 23, 2023 10:37am July 07, 2023 12:04am nitroglycerin 0.4 mg sublingual tablet (20 sources) Nitrate Vasodilator Start: 07-29-2023 Nitroglyce rin Active 0.4 MG SL Q5M July 29, 2023 2:32pm Start: 09-16-2018 End: 08-11-2021 Nitroglycerin Discontinued 0 .4 MG SL Q5M October 21, 2020 4:59pm August 11, 2021 10:48am omeprazole 20 mg delayed release oral capsule (20 sources) Proton Pump Inhibitor Start: 07-29-2023 take 20 mg by mouth once daily Omeprazole Active 20 MG PO DAILY July 29, 2023 12:00am Start: 06-15-2023 End: 07-29-2023 take 10 mg by mouth once daily Omeprazole Magnesium (P rilosec) 2.5 mg susp,delayed release for recon Discontinued 10 MG PO DAILY June 15, 2023 12:00am July 29, 2023 2:14pm Start: 09-14-2018 End: 02-17-2021 take 20 mg by mouth once daily Omeprazole Discontinued 20 MG PO DAILY December 26, 2019 1:09pm February 17, 2021 12:48pm Start: 09-23-2015 Omeprazole Mag nesium 20 mg tablet omeprazole 20 mg tablet,delayed release (DR/EC) 0 09/23/2015 Active Comment on above: Take 20 mg by mouth once daily. omeprazole 20 mg tab let,delayed release (DR/EC) rosuvastatin calcium 20 mg oral tablet (3 sources) HMG-CoA Reductase Inhibitor Start: take 1 tablet by mouth once daily Rosuvastatin (Crestor) 20 mg tablet Active 20 MG PO DAILY August 03, 2023 12:00am Start: 07-29-2023 End: 08-03-2023 take 1 tablet by mouth once daily Rosuvastatin (Crestor) 10 mg tablet Discontinued 10 MG PO DAILY July 29, 2023 12:00am August 03, 2023 12:42pm Completed/Discontinued Medications Medication Drug Class(es) Dates Sig (Normalized) Sig (Original) acetaminophen 325 mg / oxyCODONE hydrochloride 5 mg oral tablet (6 sources) Opioid Agonist Start: 10-06-2018 End: 10-09-2018 take 1 tablet by mouth every six hours as needed Oxycodone-Acetamin ophen Discontinued 1 TABLET PO EVERY 6 HOURS NEEDED 12 3 October 05, 2018 11:00pm October 08, 2018 11:08pm amitriptyline hydrochloride 10 mg oral tablet (2 sources) Tricyclic Antidepressant Start: 07-18-2019 End: 01-23-2022 amitriptyline (ELAVIL) 10 mg tablet amitriptyline 10 mg tablet 0 07/18/2019 01/23/2022 Discontinued (Discontinued by Patient) Comment on above: amitriptyline 10 mg tablet ARIPiprazole 2 mg oral tablet (17 sources) Atypical Antipsychotic Start: 11-17-2021 take 1 tablet by mouth once daily ARIPiprazole (ABILIFY) 2 mg tablet Take 2 mg by mouth once daily. 0 11/17/2021 Active Start: 07-12-2017 End: 09-22-2018 take 1 tablet by mouth once Aripiprazole (Abilify) 2 m g tablet Discontinued 2 MG PO ONCE July 12, 2017 12:00am September 22, 2018 2:13pm Start: 02-17-2016 End: 07-12-2017 Abilify Discontinued February 16, 2016 11:00pm July 12, 2017 11:20am End: 12-09-2021 take 1 tablet by mouth once daily ARIPiprazole (ABILIFY) 10 mg tablet Take 10 mg by mouth once daily. 0 12/09/2021 Discontinued Comment on above: Take 10 mg by mouth once daily. Take 2 mg by mouth o nce daily. atorvastatin 80 mg oral tablet (20 sources) HMG-CoA Reductase Inhibitor Start: End: take 80 mg by mouth once daily Atorvastatin Discontinued 80 MG PO DAILY April 22, 2020 8:04am March 31, 2021 12:07pm Start: 09-14-2018 End: 09-16-2018 take 1 tablet by mouth once daily Atorvastatin (Lipitor) 40 MG tablet Discontinued 40 MG PO DAILY September 13, 2018 11:00pm September 16, 2018 3:22pm Comment on above: Take 80 mg by mouth once daily. Blood-Glucose Meter (Freestyle Lite Meter) kit (18 sources) Start: 10-02-2021 End: 11-20-2021 Blood-Glucose Meter (Freestyle Lite Meter) kit Discontinued 0 .ROUTE .MEDSUPPLY October 02, 2021 2:17pm November 20, 2021 12:57pm As directed, check blood glucose daily for type 2 DM Start: 01-23-2021 End: 10-02-2021 Blood-Glucose Meter (Freesty le Lite Meter) kit Discontinued 0 .ROUTE .MEDSUPPLY January 23, 2021 10:23am October 02, 2021 2:18pm As directed, check blood glucose daily for type 2 DM Start: 12-26-2019 End: 01-23-2021 Blood-Glucose Meter (Freesty le Lite Meter) kit Discontinued 0 .ROUTE .MEDSUPPLY December 25, 2019 11:00pm January 23, 2021 10:23am As directed, check blood glucose daily for type 2 DM Blood-Glucose Meter (Onetouch Ultra2 Meter) kit (6 sources) Start: 04-18-2021 End: 10-03-2021 Blood-Glucose Meter (Onetouch Ultra2 Meter) kit Discontinued 0 .ROUTE .MEDSUPPLY April 17, 2021 11:00pm October 03, 2021 10:17am Check blood glucose daily for type 2 diabetes mellitus 24 hr buPROPion hydrochloride 300 mg extended release oral tablet (4 sources) Aminoketone take 1 tablet by mouth once daily buPROPion XL (WELLBUTRIN XL) 300 mg 24 hr tablet Take 300 mg by mouth once daily. 0 Active Comment on above: Take 300 mg by mouth once daily. canagliflozin 100 mg oral tablet (12 sources) Sodium-Glucose Cotransporter 2 Inhibitor Start: 02-14-2019 End: 12-26-2019 take 1 tablet by mouth once daily Canagliflozin (Invokana) 100 mg tablet Discontinued 0 .ROUTE .COMPLEX April 12, 2019 1:26pm December 26, 2019 1:07pm take 1 tablet by mouth once daily Carisoprodol (6 sources) Muscle Relaxant Start: 02-17-2016 End: 07-12-2017 Soma Discontinued February 16, 2016 11:00pm July 12, 2017 11:20am carvedilol 3.125 mg oral tablet (20 sources) alpha-Adrenergic Rashid, beta-Adrenergic Rashid Start: 09-16-2018 End: 10-27-2021 take 3.125 mg by mouth twice daily Carvedilol Discontinued 3.125 MG PO TWICE A DAY 180 October 04, 2020 3:26pm October 27, 2021 2:16pm Comment on above: Take 3.125 mg by marina th twice daily with meals. cephalexin 500 mg oral capsule (6 sources) Cephalosporin Antibacterial Start: 09-07-2020 End: 09-27-2020 take 500 mg by mouth every six hours Cephalexin Discontinued 500 MG PO EVERY 6 HOURS 40 September 07, 2020 12:00am September 27, 2020 8:59am cholecalciferol 0.025 mg oral capsule (4 sources) Vitamin D take 1 capsule by mouth once daily Cholecalciferol, Vitamin D3, (VITAMIN D) 1,000 unit cap Take 1,000 Units by mouth once daily. 0 Active Comment on above: Take 1,000 Units by mouth once daily. cinnamon bark 500 mg oral capsule (6 sources) Start: 09-22-2018 End: 10-15-2018 take 1 capsule by mouth once daily Cinnamon Bark (Cinnamon) 500 mg capsule Discontinued 1000 MG PO DAILY September 21, 2018 11:00pm October 15, 2018 10:10am ciprofloxacin 500 mg oral tablet (6 sources) Quinolone Antimicrobial Start: 02-17-2016 End: 07-12-2017 take 500 mg by mouth twice daily Ciprofloxacin Hcl Discontinued 500 MG PO TWICE A DAY February 16, 2016 11:00pm July 12, 2017 11:09am clindamycin 300 mg oral capsule (6 sources) Lincosamide Antibacterial Start: 09-27-2020 End: 01-23-2021 take 300 mg by mouth every eight hours Clindamycin Hcl Discontinued 300 MG PO Q8H September 26, 2020 11:00pm January 23, 2021 10:16am diazePAM 10 mg oral tablet (3 sources) Benzodiazepine Start: 04-08-2020 diazePAM (VALIUM) 10 mg tablet diazepam 10 mg tablet 0 04/08/2020 Active Comment on above: diazepam 10 mg table t dicyclomine hydrochloride 10 mg oral capsule (6 sources) Anticholinergic Start: 02-17-2016 End: 07-12-2017 take 20 mg by mouth three times daily before mealtime Dicyclomine Discontinued 20 MG PO THREE TIMES DAILY BEFORE MEALS February 16, 2016 11:00pm July 12, 2017 11:10am docusate sodium 100 mg oral capsule (6 sources) Start: 02-17-2016 End: 07-12-2017 take 100 mg by mouth once daily Docusate Sodium Discontinued 100 MG PO DAILY February 16, 2016 11:00pm July 12, 2017 11:09am doxycycline hyclate 100 mg oral capsule (6 sources) Tetracycline-class Drug Start: 08-20-2022 End: 06-15-2023 take 100 mg by mouth twice daily Doxycycline Hyclate Discontinued 100 MG PO TWICE A DAY August 20, 2022 12:00am June 15, 2023 10:21am 0.5 ml dulaglutide 1.5 mg/ml auto-injector (12 sources) GLP-1 Receptor Agonist Start: 04-09-2021 End: 10-01-2021 Dulaglutide (Trulicity) 0.75 mg/0.5 mL pen injector Discontinued 0.75 MG SC EVERY WEEK 2 April 09, 2021 7:45am October 01, 2021 1:22pm Start: 01-23-2021 End: 04-09-2021 Dulaglutide (Trulicity) 1.5 mg/0.5 mL pen injector Discontinued 1.5 MG SC EVERY WEEK 2 January 22, 2021 11:00pm April 09, 2021 7:52am DULoxetine 30 mg delayed release oral capsule (14 sources) Serotonin and Norepinephrine Reuptake Inhibitor Start: 02-17-2016 End: 09-22-2018 take 120 mg by mouth once daily Duloxetine Discontinued 120 MG PO DAILY February 16, 2016 11:00pm September 22, 2018 2:11pm Start: 08-27-2015 take 1 capsule by mo uth once daily DULoxetine (CYMBALTA) 30 mg capsule Take 30 mg by mouth once daily. 0 08/27/2015 Active take 2 capsules by m outh once daily DULoxetine (CYMBALTA) 60 mg capsule Take 120 mg by mouth once daily. 0 Active Comment on above: Take 120 mg by mouth once daily. Take 30 mg by mouth once daily. empagliflozin 25 mg oral tablet (15 sources) Sodium-Glucose Cotransporter 2 Inhibitor Start: End: take 1 tablet by mouth once daily in the morning Empagliflozin (Jardiance) 25 mg tablet Discontinued 25 MG PO EVERY MORNING January 23, 2021 1:29pm October 01, 2021 1:24pm Comment on above: Take 25 mg by mouth daily with breakfast. fenofibrate 145 mg oral tablet (4 sources) Peroxisome Proliferator Receptor alpha Agonist Start: take 1 tablet by mouth once daily fenofibrate nanocrystallized (TRICOR) 145 mg tablet Take 145 mg by mouth once daily. 0 07/01/2015 Active Comment on above: Take 145 mg by mouth once daily. fluticasone propionate 0.05 mg/actuat metered dose nasal spray (20 sources) Corticosteroid Start: End: take 1 spray(s) nasal route once daily Fluticasone Propionate Discontinued 2 SPRAY INTRANASAL DAILY November 18, 2020 12:27pm January 23, 2021 1:29pm administer into each nostril glimepiride 1 mg oral tablet (20 sources) Sulfonylurea Start: End: take 1 mg by mouth once daily Glimepiride Discontinued 1 MG PO DAILY May 13, 2021 5:29pm April 13, 2022 7:33am Start: 10-15-2018 End: 01-23-2021 take 2 mg by mouth once daily Glimepiride Discontinued 2 MG PO DAILY June 11, 2020 5:06pm January 23, 2021 10:22am Comment on above: Take 2 mg by mouth d aily with breakfast. HYDROmorphone hydrochloride 4 mg oral tablet (10 sources) Opioid Agonist Start: 2015 End: 2021 take 4 mg by mouth every six hours Hydromorphone Discontinued 4 MG PO EVERY 6 HOURS February 16, 2016 11:00pm October 01, 2021 1:23pm Comment on above: Take 4 mg by mouth e very 6 hours as needed. ibuprofen 800 mg oral tablet (4 sources) Nonsteroidal Anti-inflammatory Drug take 1 tablet by mouth every six hours as needed ibuprofen 800 mg tablet Take 800 mg by mouth every 6 hours as needed. 0 Active Comment on above: Take 800 mg by mouth every 6 hours as needed. insulin glargine 100 unt/ml injectable solution (3 sources) Insulin Analog End: 2021 inject 55 [IU] by subcutaneous injection once daily at bedtime insulin glargine (LANTUS) 100 unit/mL injection Inject 55 Units subcutaneously daily at bedtime. 0 01/23/2022 Discontinued (Discontinued by Patient) Comment on above: Inject 55 Units subc utaneously daily at bedtime. ketoconazole 20 mg/ml medicated shampoo (6 sources) Azole Antifungal Start: 2021 End: 2021 Ketoconazole Discontinued 1 APPLIC TOPICAL TWICE A WEEK September 30, 2021 11:00pm October 02, 2021 9:18am Yyblb-Ry-0-Dha-Epa-P hospho-Ast (6 sources) Start: 2018 End: 2019 Fefvd-Gh-3-Dha-Epa-P hospho-Ast Discontinued 1 EACH PO DAILY October 05, 2018 11:00pm August 28, 2019 1:15pm lidocaine 25 mg/ml / prilocaine 25 mg/ml topical cream (3 sources) Antiarrhythmic, Amide Local Anesthetic Start: 2018 lidocaine-prilocaine (EMLA) 2.5-2.5 % cream lidocaine-prilocaine 2.5-2.5% cream 0 05/10/2019 Active Comment on above: lidocaine-prilocaine 2.5-2.5% cream lisinopril 10 mg oral tablet (20 sources) Angiotensin Converting Enzyme Inhibitor Start: 2017 End: 2021 take 10 mg by mouth once daily Lisinopril Discontinued 10 MG PO DAILY 90 March 11, 2021 10:43am May 04, 2022 1:07pm Comment on above: Take 10 mg by mouth once daily. Magnesium (6 sources) Start: 2018 End: 2018 take 250 mg by mouth once daily Magnesium Discontinued 250 MG PO DAILY September 13, 2018 11:00pm October 15, 2018 10:12am metFORMIN hydrochloride 500 mg oral tablet (20 sources) Biguanide Start: 2017 End: 2022 take 1000 mg by mouth twice daily Metformin Discontinued 1000 MG PO TWICE A DAY 360 June 02, 2021 8:44am June 15, 2023 10:21am must hold for 3 days take 1 tablet by marina th twice daily at mealtime metFORMIN 1,000 mg tablet Take 1,000 mg by mouth twice daily with meals. 0 Active Comment on above: Take 1,000 mg by marina th twice daily with meals. methylPREDNISolone (3 sources) Corticosteroid Start: 2017 methylPREDNISolone (MEDROL, JANAY,) 4 mg Dose-Pack Medrol (Janay) 4 mg tablets,dose pack 0 01/07/2018 Active Comment on above: Medrol (Janay) 4 mg ta blets,dose pack metroNIDAZOLE 500 mg oral tablet (6 sources) Nitroimidazole Antimicrobial Start: 2015 End: 2017 take 500 mg by mouth every six hours Metronidazole Discontinued 500 MG PO EVERY 6 HOURS 40 February 16, 2016 11:00pm July 12, 2017 11:09am morphine sulfate 15 mg extended release oral tablet (9 sources) Opioid Agonist Start: 2020 morphine SR (MS CONTIN, ORAMORPH SR) 15 mg 12 hr tablet Take by mouth. 0 07/02/2021 Active Start: 09-27-2020 End: 10-01-2021 take 30 mg by mouth every twelve hours Morphine Discontinued 30 MG PO Q12H September 26, 2020 11:00pm October 01, 2021 1:23pm Comment on above: Take by mouth. [place]-3 Fatty Acids-Vitamin E (FISH OIL) 1,000 mg cap (4 sources) take 1 capsule by mouth twice daily [place]-3 Fatty Acids-Vitamin E (FISH OIL) 1,000 mg cap Take 1 capsule by mouth twice daily. 0 Active Comment on above: Take 1 capsule by [facility] twice daily. abuse-deterrent 12 hr oxyCODONE hydrochloride 20 mg extended release oral tablet (10 sources) Opioid Agonist Start: 6 End: 9 take 20 mg by mouth twice daily Oxycodone Discontinued 20 MG PO TWICE A DAY February 16, 2016 11:00pm January 30, 2019 1:58pm take 20 mg by mouth every twelve hours oxyCODONE ER (OXYCONTIN) 20 mg Tb12 Take 20 mg by mouth every 12 hours. 0 Active Comment on above: Take 20 mg by mouth every 12 hours. rivaroxaban 15 mg oral tablet (20 sources) Factor Xa Inhibitor Start: End: take 15 mg by mouth once daily Rivaroxaban Discontinued 15 MG PO DAILY October 12, 2018 11:17am January 30, 2019 2:41pm sertraline 100 mg oral tablet (4 sources) Serotonin Reuptake Inhibitor take 2 tablets by mouth once daily sertraline (ZOLOFT) 100 mg tablet Take two tablets by mouth once daily. 0 Active Comment on above: Take two tablets by mouth once daily. sildenafil 100 mg oral tablet (20 sources) Phosphodiesterase 5 Inhibitor Start: End: Sildenafil (Viagra) 100 mg tablet Discontinued 50 MG PO DAILY December 10, 2020 1:42pm January 06, 2022 10:27am administer 30 minutes to 4 hours before activity SITagliptin 100 mg oral tablet (3 sources) Dipeptidyl Peptidase 4 Inhibitor Start: End: take 1 tablet by mouth once daily JANUVIA 100 mg tablet Take 100 mg by mouth once daily. 0 07/01/2015 01/23/2022 Discontinued (Discontinued by Patient) Comment on above: Take 100 mg by mouth once daily. sulfamethoxazole 800 mg / trimethoprim 160 mg oral tablet (6 sources) Dihydrofolate Reductase Inhibitor Antibacterial, Sulfonamide Antimicrobial Start: End: take 1 tablet by mouth twice daily Sulfamethoxazole-T rimethoprim Discontinued 1 TABLET PO TWICE A DAY September 07, 2020 12:00am September 27, 2020 8:59am tiaGABine hydrochloride 4 mg oral tablet (12 sources) Anti-epileptic Agent Start: 016 End: 022 tiaGABine (GABITRIL) 4 mg tablet Take by mouth. 0 02/17/2016 Active Start: 02-17-2016 End: 06-15-2023 Tiagabine Discontinued 0 .RO RAMPART .COMPLEX February 16, 2016 11:00pm June 15, 2023 10:21am 4 mg breakfast 8mg qhs Comment on above: Take one tablet in A M & two tablets in PM. Take 1 tablet by marina th as directed. Take one tablet in AM & two tablets in PM. Take by mouth. ticagrelor 90 mg oral tablet (20 sources) Start: 09-16-2018 End: 07-13-2022 take 90 mg by mouth twice daily Ticagrelor Discontinued 90 MG PO TWICE A DAY 180 July 07, 2021 11:06am July 13, 2022 4:18pm Comment on above: Take 90 mg by mouth twice daily. Tirzepatide (Mounjaro) 2.5 mg/0.5 mL pen injector (3 sources) Start: 06-15-2023 End: 07-29-2023 Tirzepatide (Mounjaro) 2.5 mg/0.5 mL pen injector Discontinued MG SC June 15, 2023 12:00am July 29, 2023 2:15pm Start: 06-15-2023 Tirzepatide (M ounjaro) 2.5 mg/0.5 mL pen injector Active MG SC June 15, 2023 12:00am tiZANidine 4 mg oral tablet (4 sources) Central alpha-2 Adrenergic Agonist Start: 08-14-2015 take 1 tablet by mouth every six hours as needed tiZANidine (ZANAFLEX) 4 mg tablet Take 4 mg by mouth every 6 hours as needed. 0 08/14/2015 Active Comment on above: Take 4 mg by mouth e very 6 hours as needed. traZODone hydrochloride 50 mg oral tablet (12 sources) Serotonin Reuptake Inhibitor Start: 12-02-2018 End: 12-26-2019 take 50 mg by mouth at bedtime as needed Trazodone Discontinued 50 MG PO AT BEDTIME NEEDED February 10, 2019 3:48pm December 26, 2019 12:44pm ubidecarenone 100 mg oral capsule (10 sources) Start: 10-06-2018 End: 10-15-2018 Coenzyme Q10 (Co Q-10) 100 MG capsule Discontinued 100 MG PO DAILY October 05, 2018 11:00pm October 15, 2018 10:10am Comment on above: Take 100 mg by mouth once daily. Problems Active Problems Problem Classification Problem Date Documented Date Episodic/Chronic Acute myocardial infarction (6 sources) Myocardial infarction; Translations: [Non-ST elevation (NSTEMI) myocardial infarction] Onset: 09-14-2018 10-15-2018 Chronic Anxiety disorders (6 sources) Mixed anxiety and depressive disorder; Translations: [Anxiety disorder, unspecified] 10-15-2018 Chronic Cardiac dysrhythmias (14 sources) Atrial fibrillation; Translations: [Unspecified atrial fibrillation] Onset: 10-30-2014 10-30-2014 Chronic Coronary atherosclerosis and other heart disease (20 sources) History of non-ST segment elevation myocardial infarction; Translations: [Old myocardial infarction] Onset: 09-14-2018 2021 Chronic Diabetes mellitus with complications (5 sources) Type 1 diabetes mellitus; Translations: [Type 1 diabetes mellitus with hyperglycemia] Onset: 02-03-2024 08-01-2023 Chronic Diabetes mellitus without complication (10 sources) Type 2 diabetes mellitus without complication; Translations: [Type 2 diabetes mellitus without complications] Onset: 10-30-2014 10-30-2014 Chronic Diabetes mellitus without complication (6 sources) Acute hyperglycemia; Translations: [Hyperglycemia, unspecified] 08-20-2022 Episodic Disorders of lipid metabolism (15 sources) Hyperlipidemia; Translations: [Hyperlipidemia, unspecified] Onset: 10-30-2014 10-30-2014 Chronic Esophageal disorders (10 sources) Gastroesophageal reflux disease; Translations: [Gastro-esophageal reflux disease without esophagitis] Onset: 10-30-2014 10-30-2014 Chronic Essential hypertension (15 sources) Hypertensive disorder; Translations: [Essential (primary) hypertension] Onset: 10-30-2014 10-30-2014 Chronic Fluid and electrolyte disorders (6 sources) Hypokalemia; Translations: [Hypokalemia] 2021 Episodic Mood disorders (10 sources) Depressive disorder; Translations: [Depression] Onset: 10-30-2014 10-30-2014 Chronic Osteoarthritis (6 sources) Osteoarthritis of knee; Translations: [Degenerative joint disease involving multiple joints] Onset: 07-12-2013 07-13-2013 Chronic Other male genital disorders (6 sources) Male erectile dysfunction, unspecified; Translations: [Erectile dysfunction] 10-01-2021 Chronic Other nervous system disorders (6 sources) Chronic pain; Translations: [Other chronic pain] 2021 Chronic Other nervous system disorders (6 sources) Neuropathy; Translations: [Polyneuropathy, unspecified] 08-20-2022 Chronic Other non-traumatic joint disorders (6 sources) Disorder of shoulder; Translations: [Other specified joint disorders, left shoulder] 06-15-2023 Episodic Other non-traumatic joint disorders (6 sources) Pain in left shoulder; Translations: [Left shoulder pain] 06-15-2023 Episodic Other non-traumatic joint disorders (3 sources) Other specified joint disorders, left shoulder; Translations: [Other specified disorders of joint, shoulder region] 06-15-2023 Episodic Other non-traumatic joint disorders (3 sources) Other specified joint disorders, right shoulder; Translations: [Other specified disorders of joint, shoulder region] 06-15-2023 Episodic Other nutritional; endocrine; and metabolic disorders (4 sources) Obesity; Translations: [Obesity, unspecified] Onset: 10-30-2014 10-30-2014 Chronic Pneumonia (except that caused by tuberculosis or sexually transmitted disease) (6 sources) Pneumonia; Translations: [Pneumonia, unspecified organism] 08-20-2022 Episodic Residual codes; unclassified (4 sources) Obstructive sleep apnea syndrome; Translations: [Obstructive sleep apnea (adult) (pediatric)] Onset: 10-30-2014 10-30-2014 Chronic Residual codes; unclassified (10 sources) Tobacco use and exposure - finding; Translations: [Tobacco use] Onset: 10-30-2014 10-30-2014 Episodic Spondylosis; intervertebral disc disorders; other back problems (13 sources) Degeneration of lumbosacral intervertebral disc; Translations: [Other intervertebral disc degeneration, lumbosacral region] Onset: 05-24-2014 Chronic Spondylosis; intervertebral disc disorders; other back problems (20 sources) Backache; Translations: [Dorsalgia, unspecified] Onset: 01-30-2013 01-30-2013 Episodic Past or Other Problems Problem Classification Problem Date Documented Da te Episodic/Chronic Abdominal pain (4 sources) Abdominal pain; Translations: [Unspecified abdominal pain] Onset: 01-30-2013 01-30-2013 Episodic Coronary atherosclerosis and other heart disease (5 sources) Presence of coronary angioplasty implant and graft; Translations: [Percutaneous transluminal coronary angioplasty status] Onset: 02-13-2019 07-29-2023 Episodic Nonspecific chest pain (12 sources) Chest pain; Translations: [Chest pain, unspecified] Onset: 02-03-2024 08-20-2022 Episodic Other connective tissue disease (2 sources) Fibromyositis; Translations: [Fibromyalgia] Onset: 09-23-2015 01-23-2022 Episodic Other hematologic conditions (4 sources) Erythrocytosis; Translations: [Secondary polycythemia] Onset: 09-03-2015 09-03-2015 Episodic Other non-traumatic joint disorders (5 sources) Impingement syndrome of shoulder region; Translations: [Pain in left shoulder] Onset: 07-12-2013 07-16-2016 Episodic Sprains and strains (3 sources) Strain of muscle(s) and tendon(s) of the rotator cuff of unspecified shoulder, initial encounter; Translations: [Sprain of lateral collateral ligament of knee] Onset: 07-12-2013 07-16-2016 Episodic Results Test Name Value Interpretation Reference Range Facility CBC W/Diff, Automatedon 11-2 Absolute Lymph 4.12 X10 3/uL Normal 0.83-4.51 Comment on above: Performed By: #### L 502.0500, L500.4050, L501.9520, L100.0100, L500.4100 #### Laboratory [address] [facility] [place], [address] Absolute Neut 7.4 X10 3/uL Normal 2.0-7.7 Comment on above: Performed By: #### L 502.0500, L500.4050, L501.9520, L100.0100, L500.4100 #### Laboratory [address] [facility] [place], [address] Basophils/100 WBC (Bld) 0.8 % Normal 0-1 Comment on above: Performed By: #### L 502.0500, L500.4050, L501.9520, L100.0100, L500.4100 #### Laboratory [address] [place], [address] Eosinophils/100 WBC (Bld) 3.0 % Normal 0-5 Comment on above: Performed By: #### L 502.0500, L500.4050, L501.9520, L100.0100, L500.4100 #### Laboratory [address] [place], [address] Erythrocyte distribution width (RBC) [Ratio] 12.6 % Normal 11.6-14.6 Comment on above: Performed By: #### L 502.0500, L500.4050, L501.9520, L100.0100, L500.4100 #### Laboratory [address] [place], [address] Hematocrit (Bld) [Volume fraction] 51.6 % Normal 40-54 Comment on above: Performed By: #### L 502.0500, L500.4050, L501.9520, L100.0100, L500.4100 #### Laboratory [address] [place], [address] Hemoglobin (Bld) [Mass/Vol] 16.8 g/dL High 13.0-16.5 Comment on above: Performed By: #### L 502.0500, L500.4050, L501.9520, L100.0100, L500.4100 #### Laboratory [address] [place], [address] IG% 0.600 Normal 0.0-0.9 Comment on above: Result Comment: IG% - Immature Granulocytes (promyelocytes, myelocytes and metamyelocytes) > 1% indicates that a LEFT SHIFT is Present. Performed By: #### L 502.0500, L500.4050, L501.9520, L100.0100, L500.4100 #### Laboratory [address] [place], [address] Lymphocytes/100 WBC (Bld) 31.3 % Normal 19-41 Comment on above: Performed By: #### L 502.0500, L500.4050, L501.9520, L100.0100, L500.4100 #### Laboratory [address] [place], [address] MCH (RBC) [Entitic mass] 28.8 pg Normal 27.0-32.0 Comment on above: Performed By: #### L 502.0500, L500.4050, L501.9520, L100.0100, L500.4100 #### Laboratory [address] [place], [address] MCHC (RBC) [Mass/Vol] 32.6 g/dL Normal 32-36 [facility] Comment on above: Performed By: #### L 502.0500, L500.4050, L501.9520, L100.0100, L500.4100 #### Laboratory [address] [place], [address] MCV (RBC) [Entitic vol] 88.4 fL Normal 80-94 Comment on above: Performed By: #### L 502.0500, L500.4050, L501.9520, L100.0100, L500.4100 #### Laboratory [address] [place], [address] Monocytes/100 WBC (Bld) 7.7 % Normal 0-10 Comment on above: Performed By: #### L 502.0500, L500.4050, L501.9520, L100.0100, L500.4100 #### Laboratory [address] [place], [address] Neutrophils/100 WBC (Bld) 56.6 % Normal 47-70 Comment on above: Performed By: #### L 502.0500, L500.4050, L501.9520, L100.0100, L500.4100 #### Laboratory [address] [place], [address] Nucleated RBC (Bld) [#/Vol] 0 10*3/uL Normal 0-5 Comment on above: Performed By: #### L 502.0500, L500.4050, L501.9520, L100.0100, L500.4100 #### Laboratory [address] [place], [address] Platelet mean volume (Bld) [Entitic vol] 11.1 fL Normal 6.2-12.0 Comment on above: Performed By: #### L 502.0500, L500.4050, L501.9520, L100.0100, L500.4100 #### Laboratory [address] [place], [address] Platelets (Bld) [#/Vol] 212 10*3/uL Normal 150-450 Comment on above: Performed By: #### L 502.0500, L500.4050, L501.9520, L100.0100, L500.4100 #### Laboratory [address] [place], [address] RBC (Bld) [#/Vol] 5.84 10*6/uL Normal 4.6-6.2 [facility] Comment on above: Performed By: #### L 502.0500, L500.4050, L501.9520, L100.0100, L500.4100 #### Laboratory [address] [place], [address] RDW SD 40.9 fl Normal 35.1-43.9 Comment on above: Performed By: #### L 502.0500, L500.4050, L501.9520, L100.0100, L500.4100 #### Laboratory [address] [place], [address] WBC (Bld) [#/Vol] 13.2 10*3/uL High 4.4-11.0 [facility] Comment on above: Performed By: #### L 502.0500, L500.4050, L501.9520, L100.0100, L500.4100 #### Laboratory [address] [place], [address] Comprehensive Metabolic Prof ilon 05-25-2024 Albumin [Mass/Vol] 3.7 g/dL Normal 3.2-5.0 [facility] Comment on above: Performed By: #### L 502.0500, L500.4050, L501.9520, L100.0100, L500.4100 #### Laboratory [address] [place], [address] Albumin/Globulin [Mass ratio] 1.0 {ratio} Normal 0.9-2.4 Comment on above: Performed By: #### L 502.0500, L500.4050, L501.9520, L100.0100, L500.4100 #### Laboratory [address] [place], [address] ALK P 120 U/L High 45-117 Comment on above: Performed By: #### L 502.0500, L500.4050, L501.9520, L100.0100, L500.4100 #### Laboratory [address] [place], [address] ALT [Catalytic activity/Vol] 31 U/L Normal 16-61 Comment on above: Performed By: #### L 502.0500, L500.4050, L501.9520, L100.0100, L500.4100 #### Laboratory [address] [place], [address] AST [Catalytic activity/Vol] 12 U/L Low 15-37 Comment on above: Performed By: #### L 502.0500, L500.4050, L501.9520, L100.0100, L500.4100 #### Laboratory [address] [place], [address] Bilirubin [Mass/Vol] 0.30 mg/dL Normal 0.20-1.00 [facility] Comment on above: Result Comment: For patients on eltrombopag therapy, use of Dimension [place] TBIL is not recommended. Performed By: #### L 502.0500, L500.4050, L501.9520, L100.0100, L500.4100 #### Laboratory [address] [place], [address] BUN/CRE 13.4 RATIO Normal 10-20 Comment on above: Performed By: #### L 502.0500, L500.4050, L501.9520, L100.0100, L500.4100 #### Laboratory [address] [place], [address] CA,Total 9.3 mg/dL Normal 8.5-10.1 Comment on above: Performed By: #### L 502.0500, L500.4050, L501.9520, L100.0100, L500.4100 #### Laboratory [address] [place], [address] Chloride [Moles/Vol] 103 mmol/L Normal 98-107 [facility] Comment on above: Performed By: #### L 502.0500, L500.4050, L501.9520, L100.0100, L500.4100 #### Laboratory [address] [place], [address] CO2 [Moles/Vol] 25.0 mmol/L Normal 21.0-32.0 Comment on above: Performed By: #### L 502.0500, L500.4050, L501.9520, L100.0100, L500.4100 #### Laboratory [address] [place], [address] Creatinine [Mass/Vol] 0.89 mg/dL Normal 0.70-1.30 [facility] Comment on above: Result Comment: The validity of the calculated GFR GFRAA in patients over 70 years has not been determined. Clinical correlation is essential. Performed By: #### L 502.0500, L500.4050, L501.9520, L100.0100, L500.4100 #### Laboratory [address] [place], [address] EST GFR - AA 115 mL/min Normal >60 Comment on above: Result Comment: Afri can [place] GFR Calc Performed By: #### L 502.0500, L500.4050, L501.9520, L100.0100, L500.4100 #### Laboratory [address] [place], [address] GAP 8 Normal 5-15 Comment on above: Performed By: #### L 502.0500, L500.4050, L501.9520, L100.0100, L500.4100 #### Laboratory [address] [place], [address] GFR/1.73 sq M.predicted among non-blacks MDRD (S/P/Bld) [Vol rate/Area] 95 mL/min/{1.73_m2} Normal >60 Comment on above: Result Comment: Non- GFR Calc Performed By: #### L 502.0500, L500.4050, L501.9520, L100.0100, L500.4100 #### Laboratory [address] [place], [address] Globulin (S) [Mass/Vol] 3.7 g/dL Normal 2.2-4.2 Comment on above: Performed By: #### L 502.0500, L500.4050, L501.9520, L100.0100, L500.4100 #### Laboratory [address] [place], [address] Glucose [Mass/Vol] 383 mg/dL High 74-106 [facility] Comment on above: Result Comment: Gluc ose result greater than or equal to 200 mg/dL suggests DIABETES MELLITUS per A.D.A. criteria. Performed By: #### L 502.0500, L500.4050, L501.9520, L100.0100, L500.4100 #### Laboratory [address] [place], [address] Potassium [Moles/Vol] 3.8 mmol/L Normal 3.5-5.1 [facility] Comment on above: Performed By: #### L 502.0500, L500.4050, L501.9520, L100.0100, L500.4100 #### Laboratory [address] [place], [address] Sodium [Moles/Vol] 136 mmol/L Normal 136-145 [facility] Comment on above: Performed By: #### L 502.0500, L500.4050, L501.9520, L100.0100, L500.4100 #### Laboratory [address] [place], [address] T PROT 7.4 g/dL Normal 6.4-8.2 Comment on above: Performed By: #### L 502.0500, L500.4050, L501.9520, L100.0100, L500.4100 #### Laboratory [address] [place], [address] Urea nitrogen [Mass/Vol] 12 mg/dL Normal 7-18 Comment on above: Performed By: #### L 502.0500, L500.4050, L501.9520, L100.0100, L500.4100 #### Laboratory [address] [place], [address] Lipid Profileon 05-25-2024 Cholesterol [Mass/Vol] 216 mg/dL High 200 Comment on above: Result Comment: <200 mg/dL Desirable 200-240 mg/dL Borderline >240 mg/dL High Risk Performed By: #### L 502.0500, L500.4050, L501.9520, L100.0100, L500.4100 #### Laboratory [address] [place], [address] Cholesterol in HDL [Mass/Vol] 40 mg/dL Normal Comment on above: Result Comment: The drugs N-Acetylcysteine and Metamizole may falsely depress this assay. Reference Range HDL <40 mg/dL Low HDL Cholesterol HDL >or= 60 mg/dL High HDL Cholesterol Performed By: #### L 502.0500, L500.4050, L501.9520, L100.0100, L500.4100 #### Laboratory [address] [place], [address] Cholesterol in LDL [Mass/Vol] 99 mg/dL Normal 0-130 Comment on above: Performed By: #### L 502.0500, L500.4050, L501.9520, L100.0100, L500.4100 #### Laboratory [address] [place], [address] Cholesterol in VLDL [Mass/Vol] 77 mg/dL High 5-40 Comment on above: Performed By: #### L 502.0500, L500.4050, L501.9520, L100.0100, L500.4100 #### Laboratory [address] [place], [address] Triglyceride [Mass/Vol] 387 mg/dL High Comment on above: Result Comment: The drugs N-Acetylcysteine and Metamizole may falsely depress this assay. Serum Triglycerides Reference Interval Normal <150 mg/dL Borderline high 150 - 199 mg/dL High 200 - 499 mg/dL Very High > or = 500 mg/dL Performed By: #### L 502.0500, L500.4050, L501.9520, L100.0100, L500.4100 #### Laboratory [address] [place], [address] Microalbumin,Random Urineon 05-25-2024 MICROALBUMIN,UR 15.6 mg/L Normal NO RANGE EST. Comment on above: Performed By: #### L 100.0100, L501.4020, L500.2500, L501.5200 #### Laboratory [address] [place], [address] Thyroid Stim Hormone (TSH)on 05-25-2024 TSH 2.460 uIU/mL Normal 0.358-3.740 Comment on above: Performed By: #### L 100.0100, L501.4020, L500.2500, L501.5200 #### Laboratory [address] [facility] [place], [address] 12 Lead EKGon 04-04-2024 12 Lead EKG [facility] Cardiovascular Services [address] [place] [address] 12 Lead EKG 04/03/24 2331 MR#: [id number] Acct: [id number] Name: HARRY CORTES Jr. Rep #: [id number] : 1970 53 From: Gavin Varma MD Attending Dr: Status: DEP ER Ordering Dr: Gerber Kaiser DO Date: 04/04/24 Location: ED Sex: M C Admitted: Test Reason : CP Blood Pressure : / mmHG Vent. Rate : 066 BPM Atrial Rate : 066 BPM P-R Int : 138 ms QRS Dur : 086 ms QT Int : 362 ms P-R-T Axes : 046 027 119 degrees QTc Int : 379 ms Normal sinus rhythm Septal infarct , age undetermined Abnormal ECG Confirmed by BIANKA LEGGETT, GAVIN ([id number]), photograph editor MARIANNE CARR ([id number]) on 04/04/2024 8:53:49 AM Referred By: Confirmed By:GAVIN VARMA MD 04/04/24 0853 Date Gavin Varma MD CC: Dr. Gerber Kaiser DO; Flori Mckoy DO Signed Normal Basic Metabolic Profile (BMP )on 04-04-2024 BUN/CRE 16.3 RATIO Normal 10-20 Comment on above: Order Comment: 'TROP ' Serial specimen #1, #2 or #3: 1 Performed By: #### L 100.0100, L501.4020, L500.2500, L501.5200 #### Laboratory [address] [place], [address] CA,Total 9.0 mg/dL Normal 8.5-10.1 Comment on above: Order Comment: 'TROP ' Serial specimen #1, #2 or #3: 1 Performed By: #### L 100.0100, L501.4020, L500.2500, L501.5200 #### Laboratory [address] [place], [address] Chloride [Moles/Vol] 104 mmol/L Normal 98-107 [facility] Comment on above: Order Comment: 'TROP ' Serial specimen #1, #2 or #3: 1 Performed By: #### L 100.0100, L501.4020, L500.2500, L501.5200 #### Laboratory [address] [place], [address] CO2 [Moles/Vol] 24.0 mmol/L Normal 21.0-32.0 Comment on above: Order Comment: 'TROP ' Serial specimen #1, #2 or #3: 1 Performed By: #### L 100.0100, L501.4020, L500.2500, L501.5200 #### Laboratory [address] [place], [address] Creatinine [Mass/Vol] 0.74 mg/dL Normal 0.70-1.30 [facility] Comment on above: Order Comment: 'TROP ' Serial specimen #1, #2 or #3: 1 Result Comment: The validity of the calculated GFR GFRAA in patients over 70 years has not been determined. Clinical correlation is essential. Performed By: #### L 100.0100, L501.4020, L500.2500, L501.5200 #### Laboratory [address] [place], [address] ECRCL 120.57 ml/min Normal Comment on above: Order Comment: 'TROP ' Serial specimen #1, #2 or #3: 1 Performed By: #### L 100.0100, L501.4020, L500.2500, L501.5200 #### Laboratory [address] [place], [address] EST GFR - AA 143 mL/min Normal >60 Comment on above: Order Comment: 'TROP ' Serial specimen #1, #2 or #3: 1 Result Comment: Afri can [place] GFR Calc Performed By: #### L 100.0100, L501.4020, L500.2500, L501.5200 #### Laboratory [address] [place], [address] GAP 8 Normal 5-15 Comment on above: Order Comment: 'TROP ' Serial specimen #1, #2 or #3: 1 Performed By: #### L 100.0100, L501.4020, L500.2500, L501.5200 #### Laboratory [address] [place], [address] GFR/1.73 sq M.predicted among non-blacks MDRD (S/P/Bld) [Vol rate/Area] 118 mL/min/{1.73_m2} Normal >60 Comment on above: Order Comment: 'TROP ' Serial specimen #1, #2 or #3: 1 Result Comment: Non- GFR Calc Performed By: #### L 100.0100, L501.4020, L500.2500, L501.5200 #### Laboratory [address] [place], [address] Glucose [Mass/Vol] 367 mg/dL High 74-106 [facility] Comment on above: Order Comment: 'TROP ' Serial specimen #1, #2 or #3: 1 Result Comment: Gluc ose result greater than or equal to 200 mg/dL suggests DIABETES MELLITUS per A.D.A. criteria. Performed By: #### L 100.0100, L501.4020, L500.2500, L501.5200 #### Laboratory [address] [place], [address] Potassium [Moles/Vol] 4.1 mmol/L Normal 3.5-5.1 [facility] Comment on above: Order Comment: 'TROP ' Serial specimen #1, #2 or #3: 1 Performed By: #### L 100.0100, L501.4020, L500.2500, L501.5200 #### Laboratory [address] [place], [address] Sodium [Moles/Vol] 136 mmol/L Normal 136-145 [facility] Comment on above: Order Comment: 'TROP ' Serial specimen #1, #2 or #3: 1 Performed By: #### L 100.0100, L501.4020, L500.2500, L501.5200 #### Laboratory [address] [place], [address] Urea nitrogen [Mass/Vol] 12 mg/dL Normal 7-18 Comment on above: Order Comment: 'TROP ' Serial specimen #1, #2 or #3: 1 Performed By: #### L 100.0100, L501.4020, L500.2500, L501.5200 #### Laboratory [address] [place], [address] CBC W/Diff, Automatedon 10-0 -2023 Absolute Lymph 3.12 X10 3/uL Normal 0.83-4.51 Comment on above: Performed By: #### L 100.0100, L501.4020, L500.2500, L501.5200 #### Laboratory [address] [place], [address] Absolute Neut 4.7 X10 3/uL Normal 2.0-7.7 Comment on above: Performed By: #### L 100.0100, L501.4020, L500.2500, L501.5200 #### Laboratory [address] [place], [address] Basophils/100 WBC (Bld) 0.9 % Normal 0-1 Comment on above: Performed By: #### L 100.0100, L501.4020, L500.2500, L501.5200 #### Laboratory [address] [place], [address] Eosinophils/100 WBC (Bld) 4.2 % Normal 0-5 Comment on above: Performed By: #### L 100.0100, L501.4020, L500.2500, L501.5200 #### Laboratory [address] [place], [address] Erythrocyte distribution width (RBC) [Ratio] 12.3 % Normal 11.6-14.6 Comment on above: Performed By: #### L 100.0100, L501.4020, L500.2500, L501.5200 #### Laboratory [address] [place], [address] Hematocrit (Bld) [Volume fraction] 46.2 % Normal 40-54 Comment on above: Performed By: #### L 100.0100, L501.4020, L500.2500, L501.5200 #### Laboratory [address] [place], [address] Hemoglobin (Bld) [Mass/Vol] 15.2 g/dL Normal 13.0-16.5 Comment on above: Performed By: #### L 100.0100, L501.4020, L500.2500, L501.5200 #### Laboratory [address] [place], [address] IG% 0.800 Normal 0.0-0.9 Comment on above: Result Comment: IG% - Immature Granulocytes (promyelocytes, myelocytes and metamyelocytes) > 1% indicates that a LEFT SHIFT is Present. Performed By: #### L 100.0100, L501.4020, L500.2500, L501.5200 #### Laboratory [address] [place], [address] Lymphocytes/100 WBC (Bld) 34.2 % Normal 19-41 Comment on above: Performed By: #### L 100.0100, L501.4020, L500.2500, L501.5200 #### Laboratory [address] [place], [address] MCH (RBC) [Entitic mass] 29.5 pg Normal 27.0-32.0 Comment on above: Performed By: #### L 100.0100, L501.4020, L500.2500, L501.5200 #### Laboratory [address] [place], [address] MCHC (RBC) [Mass/Vol] 32.9 g/dL Normal 32-36 [facility] Comment on above: Performed By: #### L 100.0100, L501.4020, L500.2500, L501.5200 #### Laboratory [address] [place], [address] MCV (RBC) [Entitic vol] 89.5 fL Normal 80-94 Comment on above: Performed By: #### L 100.0100, L501.4020, L500.2500, L501.5200 #### Laboratory [address] [place], [address] Monocytes/100 WBC (Bld) 8.5 % Normal 0-10 Comment on above: Performed By: #### L 100.0100, L501.4020, L500.2500, L501.5200 #### Laboratory [address] [place], [address] Neutrophils/100 WBC (Bld) 51.4 % Normal 47-70 Comment on above: Performed By: #### L 100.0100, L501.4020, L500.2500, L501.5200 #### Laboratory [address] [place], [address] Nucleated RBC (Bld) [#/Vol] 0 10*3/uL Normal 0-5 Comment on above: Performed By: #### L 100.0100, L501.4020, L500.2500, L501.5200 #### Laboratory [address] [place], [address] Platelet mean volume (Bld) [Entitic vol] 10.8 fL Normal 6.2-12.0 Comment on above: Performed By: #### L 100.0100, L501.4020, L500.2500, L501.5200 #### Laboratory [address] [place], [address] Platelets (Bld) [#/Vol] 185 10*3/uL Normal 150-450 Comment on above: Performed By: #### L 100.0100, L501.4020, L500.2500, L501.5200 #### Laboratory [address] [place], [address] RBC (Bld) [#/Vol] 5.16 10*6/uL Normal 4.6-6.2 [facility] Comment on above: Performed By: #### L 100.0100, L501.4020, L500.2500, L501.5200 #### Laboratory [address] [place], [address] RDW SD 40.8 fl Normal 35.1-43.9 Comment on above: Performed By: #### L 100.0100, L501.4020, L500.2500, L501.5200 #### Laboratory [address] [place], [address] WBC (Bld) [#/Vol] 9.1 10*3/uL Normal 4.4-11.0 [facility] Comment on above: Performed By: #### L 100.0100, L501.4020, L500.2500, L501.5200 #### Laboratory [address] [place], [address] CTA Head AND Neck W/ Contras ton 04-04-2024 CTA Head AND Neck W/ Contrast [facility] Imaging Services [address] [place] [address] CTA Head AND Neck W/ Contrast MR#: [id number] Acct: [id number] Name: HARRY CORTES Jr. Rep #: [id number] : 1970 M 53 From: Grayson quiñonez MD PCP: Flori Mckoy DO Status: REG ER Study: CTA Head AND Neck W/ Contrast Date of Exam: Exam# [id number] Ordering Dr: Gerber Kaiser DO ADDENDUM by Dr. Grayson Tan MD on 04/04/24 at 0236 [id number] EXAM: CT ANGIOGRAPHY HEAD AND NECK WITH INTRAVENOUS CONTRAST CLINICAL INDICATION: neck pain/left facial paresthesias neck pain/left facial paresthesias TECHNIQUE: [place]/head and neck CT angiography protocol performed with intravenous contrast. This CT exam was performed using one or more of the following dose reduction techniques: automated exposure control, adjustment of the mA and/or kV according to patient size, and/or use of iterative reconstruction technique. MIP reconstructed images were created and reviewed. CONTRAST: IV 100mL Isovue-370 RADIATION DOSE: CTDIvol = 22.32 mGy, DLP = 1613.04 mGy-cm COMPARISON: . FINDINGS: HEAD: RIGHT ANTERIOR CEREBRAL ARTERY: Unremarkable. No occlusion or significant stenosis. Anterior communicating artery is present. No aneurysm. RIGHT MIDDLE CEREBRAL ARTERY: Unremarkable. No occlusion or significant stenosis. No aneurysm. RIGHT POSTERIOR CEREBRAL ARTERY: Unremarkable. No occlusion or significant stenosis. No aneurysm. A posterior communicating artery is visualized. RIGHT INTRACRANIAL INTERNAL CAROTID ARTERY: Unremarkable. No significant stenosis. No dissection or occlusion. RIGHT INTRACRANIAL VERTEBRAL ARTERY: Unremarkable. No significant stenosis. No dissection or occlusion. LEFT ANTERIOR CEREBRAL ARTERY: Unremarkable. No occlusion or significant stenosis. No aneurysm. LEFT MIDDLE CEREBRAL ARTERY: Unremarkable. No occlusion or significant stenosis. No aneurysm. LEFT POSTERIOR CEREBRAL ARTERY: Unremarkable. No occlusion or significant stenosis. No aneurysm. A posterior communicating artery is visualized. LEFT INTRACRANIAL INTERNAL CAROTID ARTERY: Unremarkable. No significant stenosis. No dissection or occlusion. LEFT INTRACRANIAL VERTEBRAL ARTERY: Unremarkable. No significant stenosis. No dissection or occlusion. BASILAR ARTERY: Unremarkable. No occlusion or significant stenosis. No aneurysm. OTHER VASCULATURE: There is asymmetrically prominent contrast enhancement of the right cavernous sinus. There is no demonstrated bulging of the cavernous sinus or obvious asymmetric prominence of right orbital veins. Contrast enhancement of the cavernous sinus is similar to that of the transverse sinus rather than the carotid artery. This probably represents a normal variant rather than an indirect carotid-cavernous sinus fistula.. SINUSES: There are small polyps or retention cysts in right maxillary and right ethmoid sinuses. There is no evidence for acute sinusitis. NECK: RIGHT COMMON CAROTID ARTERY: Unremarkable. No significant stenosis. No dissection or occlusion. RIGHT EXTRACRANIAL INTERNAL CAROTID ARTERY: Unremarkable. No significant stenosis. No dissection or occlusion. RIGHT EXTERNAL CAROTID ARTERY: Unremarkable. No occlusion. RIGHT EXTRACRANIAL VERTEBRAL ARTERY: Unremarkable. No significant stenosis. No dissection or occlusion. LEFT COMMON CAROTID ARTERY: Unremarkable. No significant stenosis. No dissection or occlusion. LEFT EXTRACRANIAL INTERNAL CAROTID ARTERY: Unremarkable. No significant stenosis. No dissection or occlusion. LEFT EXTERNAL CAROTID ARTERY: Unremarkable. No occlusion. LEFT EXTRACRANIAL VERTEBRAL ARTERY: Arises directly from the aortic arch, a develop mental variant.. No significant stenosis. No dissection or occlusion. BRACHIOCEPHALIC AND SUBCLAVIAN ARTERIES: Unremarkable as visualized. No occlusion or significant stenosis. LUNG APICES: Unremarkable as visualized. HEAD and NECK: BONES/JOINTS: There are multilevel degenerative changes in the cervical spine. No discrete lytic or blastic abnormalities. DENTAL: Numerous teeth are missing. There are numerous untreated dental caries in the patient''s remaining teeth. There is substantial bone resorption around many of the patient''s remaining teeth consistent with periodontal disease and endodontal disease. SOFT TISSUES: Unremarkable. CAROTID STENOSIS REFERENCE USING NASCET CRITERIA: % ICA stenosis = (1 - narrowest ICA diameter/diameter of distal cervical ICA) x 100. Mild - <50% stenosis. Moderate - 50-69% stenosis. Severe - 70-94% stenosis. Near occlusion - 95-99% stenosis. Occluded - 100% stenosis. 04/04/24 0236 Date cc: Dr. Gerber Kaiser, DO; Flori Mckoy, DO * Signed ADDENDUM by Dr. Grayson Tan, (more content not included)... Normal Chest 1 View (Portable)on Chest 1 View (Portable) [facility] Imaging Services [address] [place] [address] Chest 1 View (Portable) MR#: [id number] Acct: [id number] Name: HARRY CORTES Jr. Rep #: [id number] : 1970 M 53 From: Jamila Mooney PCP: Flori Mckoy DO Status: REG ER Study: Chest 1 View (Portable) Date of Exam: 04/04/24 Exam# [id number] Ordering Dr: [place] [id number] INDICATION: cad EXAMINATION/TECHNIQUE: X-RAY - XR Chest 1 View AP portable. 12:38 AM COMPARISON: Prior study dated: 08/01/2023 FINDINGS: LINES/DEVICES: None. LUNGS: No consolidation. No pneumothorax. MEDIASTINUM: Unremarkable. CARDIAC SILHOUETTE: Not enlarged. BONES AND SOFT TISSUES: No acute abnormalities. RAD/Chest 1 View (Portable) IMPRESSION: No evidence of active intrathoracic disease. Electronically Signed: Jamila Snow MD at 2:38 EDT , CC: Dr. 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 Rep #: [id number] : 1970 53 From: Gerber Kaiser DO PCP: Flori Mckoy DO Status:DEP ER Location: ED HPI History of Present Illness Chief Complaint: Other, Pain/Inj Informant: patient and spouse/S.O. Narrative Narrative: 53-year-old male presenting to the emergency room with the chief complaint of neck pain and facial paresthesias. Patient states that for 1 week he has had pain in the bilateral neck musculature ever since he cut down a tree. Its progressively worsened. He woke from a nap this evening and noted tingling on the left side of his face around his lip and cheek. He states his arms feel heavy. He was very concerned as he states he has a history of coronary artery disease and had a heart attack and had mostly neck symptoms. Patient denies any headache. No speech difficulty. He describes the numbness as dijv-odm-ejflmjh like sensation. He denies any tip of the nose or ear symptoms. He denies any rash. Patient is a diabetic. He does not know which side he was laying on. [facility] Medical History 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 Impingement of left shoulder Impingement of right shoulder Essential hypertension Erectile dysfunction Hypokalemia Atherosclerosis of cheesh-na coronary artery of cheesh-na heart without angina pectoris Paroxysmal atrial fibrillation History of non-ST elevation myocardial infarction (NSTEMI) (09/14/18) Tobacco use Herniated disc HLD (hyperlipidemia) DM2 (diabetes mellitus, type 2) Depression Chronic pain Home Medications ???Medication ???Instructions ???Recorded ???Last Taken ???Type aspirin 81 mg tablet,delayed 81 mg PO DAILY #90 tabs 07/29/23 Unknown Rx release brexpiprazole 0.5 mg tablet 1 mg PO DAILY 07/29/23 Unknown History (Rexulti) nitroglycerin 0.4 mg sublingual 0.4 mg sublingual Q5M PRN 07/29/23 Unknown Rx tablet Cardiac/Chest Pain #1 BOTTLE omeprazole 20 mg capsule,delayed 20 mg PO DAILY 07/29/23 Unknown History release empagliflozin 25 mg-linagliptin 5 1 tab PO DAILY 08/01/23 Unknown History mg tablet (Glyxambi) meloxicam 15 mg tablet 15 mg PO DAILY 08/01/23 Unknown History sildenafil 100 mg tablet 50 mg (1/2 x 100 mg) PO DAILY PRN 08/09/23 Unknown Rx sexual activity (pt no longer using nitroglycerin) #30 tabs clopidogrel 75 mg tablet (Plavix) 75 mg PO DAILY #90 tabs 09/10/23 Unknown Rx rosuvastatin 20 mg tablet (Crestor) 20 mg PO DAILY #90 tabs 09/23/23 Unknown Rx cyclobenzaprine 10 mg tablet 10 mg PO TID PRN Muscle Spasm #15 04/04/24 Unknown Rx TABLETS oxycodone-acetaminophen 5 mg-325 1 tab PO Q6H PRN pain 3 days #12 04/04/24 Unknown Rx mg tablet (Percocet) tabs Allergy/AdvReac Type Severity Reaction Status Date / Time pregabalin (From Lyrica) AdvReac Itching Verified 04/03/24 23:16 Family History Father Esophageal cancer Diabetes Myocardial infarction Mother Arthritis Diabetes Surgical History History of coronary artery stent placement (02/13/19) History of back surgery History of arthroscopic knee surgery s/p back H/O arthroscopic knee surgery Social History household members: spouse Smoking Status: Current every day smoker tobacco type: cigarettes Tobacco: How many years used: 30 alcohol intake: current alcohol intake frequency: a few times a week Alcohol type: beer substance use type: does not use what type of physical activity do you participate in: none ROS ROS ED Constitutional Constitutional ED: Denies chills, fever(s) or weight loss Eyes Eyes: Denies blurry vision, change in vision or diplopia ENT ENT ED: Denies ear pain, rhinorrhea or sore throat Cardiovascular Cardiovascular: Denies chest pain, orthopnea, palpitations or racing heartbeat Respiratory/Chest Respiratory/Chest: Denies cough, dyspnea or orthopnea Gastrointestinal Gastrointestinal: Denies abdominal pain, diarrhea, nausea or vomiting Genitourinary Genitourinary ED: Denies dysuria, hematuria or urinary frequency Musculoskeletal Musculoskeletal: Reports neck pain; Denies arthralgias or myalgias Integumentary Denies abscess or rash Neurologic Neurologic: Reports paresthesias; Denies headache(s) or weakness Psychiatric Psychiatric: Denies anxiety, depression, suicidal ideation or suicidal thoughts Endocrine Endocrinology: Denies polydipsia, polyphagia or polyuria Allergic/Immunologic Allergic/Immunologic ED: Denies mouth (more content not included)... Normal L501.4020on 04-04-2024 TROPONIN-I HS 17 pg/mL Normal 3.0-78.0 Comment on above: Order Comment: 'TROP ' Serial specimen #1, #2 or #3: 1 Result Comment: Darcy steele Note: New Test Units and Gender Specific Reference Ranges. For more information see Policy Stat Procedure [place] High Sensitivity Troponin (TNIH) and attachments. Performed By: #### L 100.0100, L501.4020, L500.2500, L501.5200 #### Laboratory [address] [place], [place], [address] Magnesiumon 04-04-2024 Magnesium [Mass/Vol] 2.0 mg/dL Normal 1.6-2.6 [facility] Comment on above: Order Comment: 'TROP ' Serial specimen #1, #2 or #3: 1 Performed By: #### L 100.0100, L501.4020, L500.2500, L501.5200 #### Laboratory [address] [place], [address] Absolute lymphocyte countOrd ered By: Marcell Snow on 08-03-2023 Lymphocytes Auto (Unsp spec) [#/Vol] 3.04 10*3/uL 0.83-4.51 Automated lymphocyte count a s percentage of total leukocytesOrdered By: Marcell Snow on 08-03-2023 Lymphocytes/100 WBC Auto (Unsp spec) 28.6 % 19-41 Basic Metabolic Profile (BMP )on 01-30-2024 BUN/CRE 21.5 RATIO High 10-20 Comment on above: Performed By: #### L 100.0100, L501.4020, L500.2500, L501.5200 #### Laboratory [address] [place], [address] CA,Total 8.7 mg/dL Normal 8.5-10.1 Comment on above: Performed By: #### L 100.0100, L501.4020, L500.2500, L501.5200 #### Laboratory [address] [place], [address] Chloride [Moles/Vol] 111 mmol/L High 98-107 [facility] Comment on above: Performed By: #### L 100.0100, L501.4020, L500.2500, L501.5200 #### Laboratory [address] [place], [address] CO2 [Moles/Vol] 26.0 mmol/L Normal 21.0-32.0 Comment on above: Performed By: #### L 100.0100, L501.4020, L500.2500, L501.5200 #### Laboratory [address] [place], [address] Creatinine [Mass/Vol] 0.60 mg/dL Low 0.70-1.30 [facility] Comment on above: Result Comment: The validity of the calculated GFR GFRAA in patients over 70 years has not been determined. Clinical correlation is essential. Performed By: #### L 100.0100, L501.4020, L500.2500, L501.5200 #### Laboratory [address] [place], [address] ECRCL 150.39 ml/min Normal Comment on above: Performed By: #### L 100.0100, L501.4020, L500.2500, L501.5200 #### Laboratory [address] [place], [address] EST GFR - AA 181 mL/min Normal >60 Comment on above: Result Comment: Afri can Mauritian GFR Calc Performed By: #### L 100.0100, L501.4020, L500.2500, L501.5200 #### Laboratory [address] [place], [address] GAP 3 Low 5-15 Comment on above: Performed By: #### L 100.0100, L501.4020, L500.2500, L501.5200 #### Laboratory [address] [place], [address] GFR/1.73 sq M.predicted among non-blacks MDRD (S/P/Bld) [Vol rate/Area] 149 mL/min/{1.73_m2} Normal >60 Comment on above: Result Comment: Non- GFR Calc Performed By: #### L 100.0100, L501.4020, L500.2500, L501.5200 #### Laboratory [address] [place], [address] Glucose [Mass/Vol] 234 mg/dL High 74-106 [facility] Comment on above: Result Comment: Gluc ose result greater than or equal to 200 mg/dL suggests DIABETES MELLITUS per A.D.A. criteria. Performed By: #### L 100.0100, L501.4020, L500.2500, L501.5200 #### Laboratory [address] [place], [address] Potassium [Moles/Vol] 3.5 mmol/L Normal 3.5-5.1 [facility] Comment on above: Performed By: #### L 100.0100, L501.4020, L500.2500, L501.5200 #### Laboratory [address] [place], [address] Sodium [Moles/Vol] 140 mmol/L Normal 136-145 [facility] Comment on above: Performed By: #### L 100.0100, L501.4020, L500.2500, L501.5200 #### Laboratory [address] [place], [address] Urea nitrogen [Mass/Vol] 13 mg/dL Normal 7-18 Comment on above: Performed By: #### L 100.0100, L501.4020, L500.2500, L501.5200 #### Laboratory [address] [place], [address] Basophil percentageOrdered B y: Marcell Snow on 08-03-2023 Basophils/100 WBC (Bld) 0.9 % 0-1 Chloride [Moles/Vol] 111 mmol/L 98-107 [facility] Eosinophils/100 WBC (Bld) 2.4 % 0-5 Glucose [Mass/Vol] 234 mg/dL 74-106 [facility] Comment on above: Glucose result great er than or equal to 200 mg/dLsuggests DIABETES MELLITUS per A.D.A. criteria. Hemoglobin (Bld) [Mass/Vol] 14.6 g/dL 13.0-16.5 Monocytes/100 WBC (Bld) 7.0 % 0-10 Neutrophils (Bld) [#/Vol] 6.4 10*3/uL 2.0-7.7 Neutrophils/100 WBC (Bld) 60.1 % 47-70 Potassium [Moles/Vol] 3.5 mmol/L 3.5-5.1 [facility] Sodium [Moles/Vol] 140 mmol/L 136-145 [facility] WBC (Bld) [#/Vol] 10.6 10*3/uL 4.4-11.0 [facility] Bedside Glucoseon 08-03-2023 FINGERSTICK GLU 193 mg/dL High 74-106 Comment on above: Result Comment: RENE GEMENT OF PATIENT CARE PER NURSING PROTOCOL Performed By: #### L 100.0100, L501.4020, L500.2500, L501.5200 #### Laboratory [address] [place], [address] FINGERSTICK GLU 232 mg/dL High 74-106 Comment on above: Result Comment: RENE GEMENT OF PATIENT CARE PER NURSING PROTOCOL Performed By: #### L 100.0100, L501.4020, L500.2500, L501.5200 #### Laboratory [address] [place], [address] CBC W/Diff, Automatedon 07-07 0-2023 Absolute Lymph 3.04 X10 3/uL Normal 0.83-4.51 Comment on above: Performed By: #### L 100.0100, L501.4020, L500.2500, L501.5200 #### Laboratory [address] [place], [address] Absolute Neut 6.4 X10 3/uL Normal 2.0-7.7 Comment on above: Performed By: #### L 100.0100, L501.4020, L500.2500, L501.5200 #### Laboratory [address] [place], [address] Basophils/100 WBC (Bld) 0.9 % Normal 0-1 Comment on above: Performed By: #### L 100.0100, L501.4020, L500.2500, L501.5200 #### Laboratory [address] [place], [address] Eosinophils/100 WBC (Bld) 2.4 % Normal 0-5 Comment on above: Performed By: #### L 100.0100, L501.4020, L500.2500, L501.5200 #### Laboratory [address] [place], [address] Erythrocyte distribution width (RBC) [Ratio] 13.5 % Normal 11.6-14.6 Comment on above: Performed By: #### L 100.0100, L501.4020, L500.2500, L501.5200 #### Laboratory [address] [place], [address] Hematocrit (Bld) [Volume fraction] 45.4 % Normal 40-54 Comment on above: Performed By: #### L 100.0100, L501.4020, L500.2500, L501.5200 #### Laboratory [address] [place], [address] Hemoglobin (Bld) [Mass/Vol] 14.6 g/dL Normal 13.0-16.5 Comment on above: Performed By: #### L 100.0100, L501.4020, L500.2500, L501.5200 #### Laboratory [address] [place], [address] IG% 1.000 High 0.0-0.9 Comment on above: Result Comment: IG% - Immature Granulocytes (promyelocytes, myelocytes and metamyelocytes) > 1% indicates that a LEFT SHIFT is Present. Performed By: #### L 100.0100, L501.4020, L500.2500, L501.5200 #### Laboratory [address] [place], [address] Lymphocytes/100 WBC (Bld) 28.6 % Normal 19-41 Comment on above: Performed By: #### L 100.0100, L501.4020, L500.2500, L501.5200 #### Laboratory [address] [place], [address] MCH (RBC) [Entitic mass] 28.9 pg Normal 27.0-32.0 Comment on above: Performed By: #### L 100.0100, L501.4020, L500.2500, L501.5200 #### Laboratory [address] [place], [address] MCHC (RBC) [Mass/Vol] 32.2 g/dL Normal 32-36 [facility] Comment on above: Performed By: #### L 100.0100, L501.4020, L500.2500, L501.5200 #### Laboratory [address] [place], [address] MCV (RBC) [Entitic vol] 89.9 fL Normal 80-94 Comment on above: Performed By: #### L 100.0100, L501.4020, L500.2500, L501.5200 #### Laboratory [address] [place], [address] Monocytes/100 WBC (Bld) 7.0 % Normal 0-10 Comment on above: Performed By: #### L 100.0100, L501.4020, L500.2500, L501.5200 #### Laboratory [address] [place], [address] Neutrophils/100 WBC (Bld) 60.1 % Normal 47-70 Comment on above: Performed By: #### L 100.0100, L501.4020, L500.2500, L501.5200 #### Laboratory [address] [place], [address] Nucleated RBC (Bld) [#/Vol] 0 10*3/uL Normal 0-5 Comment on above: Performed By: #### L 100.0100, L501.4020, L500.2500, L501.5200 #### Laboratory [address] [place], [address] Platelet mean volume (Bld) [Entitic vol] 12.2 fL High 6.2-12.0 Comment on above: Performed By: #### L 100.0100, L501.4020, L500.2500, L501.5200 #### Laboratory [address] [place], [address] Platelets (Bld) [#/Vol] 146 10*3/uL Low 150-450 Comment on above: Performed By: #### L 100.0100, L501.4020, L500.2500, L501.5200 #### Laboratory [address] [place], [address] RBC (Bld) [#/Vol] 5.05 10*6/uL Normal 4.6-6.2 [facility] Comment on above: Performed By: #### L 100.0100, L501.4020, L500.2500, L501.5200 #### Laboratory [address] [place], [address] RDW SD 44.5 fl High 35.1-43.9 Comment on above: Performed By: #### L 100.0100, L501.4020, L500.2500, L501.5200 #### Laboratory [address] [place], [address] WBC (Bld) [#/Vol] 10.6 10*3/uL Normal 4.4-11.0 [facility] Comment on above: Performed By: #### L 100.0100, L501.4020, L500.2500, L501.5200 #### Laboratory [address] [place], [address] Determination of erythrocyte mean corpuscular volume (MCV)Ordered By: Marcell Snow on 08-03-2023 MCV (RBC) [Entitic vol] 89.9 fL 80-94 Discharge Instructionon 07-07 Discharge Instruction [facility] Medical Records Department [address] [place] [address] Instructions for Home/Discharge Instructions 08/03/23 1240 MR#: [id number] Acct: [id number] Name: HARRY CORTES Jr. Rep #: [id number] : 1970 52 From: Marcell Snow MD PCP: Marylu Mckoy DO Status:ADM IN Discharge Instructions Diet Discharge Diet: Low fat / Low cholesterol Activity Discharge Activity: Return to Normal Activity Dressing / Incision Call your doctor if you observe: Fever of 101 or Higher, Shortness of breath, Dizziness, Fainting spells, Swelling in the ankles, Chest pain and Increased palpitations (irregular heartbeat) Follow Up Care Test Results: Test results from this visit will be discussed in further detail at your follow-up appointment, if applicable. Discharge Plan Admission Admit Date/Time: 08/02/23 15:43 Attending Provider: Marcell Snow Primary Care Provider: Marylu Mckoy Consulting Providers: Marcie London; James Miller; Tomeka Garcia Discharge Orders/Prescriptions Prescriptions: New clopidogrel [Plavix] 75 mg tablet 75 mg PO DAILY Qty: 30 0RF rosuvastatin [Crestor] 20 mg tablet 20 mg PO DAILY Qty: 30 0RF Continued omeprazole 20 mg capsule,delayed release(DR/EC) 20 mg PO DAILY Rexulti 0.5 mg tablet 1 mg PO DAILY nitroglycerin 0.4 mg tablet, sublingual 0.4 mg sublingual Q5M PRN (Reason: Cardiac/Chest Pain) Qty: 1 3RF aspirin 81 mg tablet,delayed release (DR/EC) 81 mg PO DAILY Qty: 90 3RF Glyxambi 25-5 mg tablet 1 tab PO DAILY meloxicam 15 mg tablet 15 mg PO DAILY Patient Comments: take 1 tablet by mouth once daily Discontinued rosuvastatin [Crestor] 10 mg tablet 10 mg PO DAILY Referrals / Follow Up: Marylu Mckoy DO [Primary Care Provider] - Within 1 Week Disposition Disposition (needs filled in before D/C Order can be placed): Home, Self Care 08/03/23 1250 Marcell Snow MD CC: Dr. Marcie London MD; Dr. Tomeka Garcia MD; Dr. James Miller MD; Marylu Mckoy DO Signed Normal Erythrocyte distribution wid th ratioOrdered By: Marcell Snow on 08-03-2023 Erythrocyte distribution width (RBC) [Ratio] 13.5 % 11.6-14.6 Erythrocyte distribution wid th standard deviationOrdered By: Marcell Snow on 08-03-2023 Erythrocyte distribution width (RBC) [Entitic vol] 44.5 fL 35.1-43.9 Hematocrit Auto (Bld) [Volum e fraction]Ordered By: Marcell Snow on 08-03-2023 Hematocrit (Bld) [Volume fraction] 45.4 % 40-54 Immature granulocytes/100 WB C Auto (Bld)Ordered By: Marcell Snow on 08-03-2023 Immature granulocytes/100 WBC (Bld) 1.000 % 0.0-0.9 Comment on above: IG% - Immature Granu locytes (promyelocytes, myelocytes and metamyelocytes) > 1% indicates that a LEFT SHIFT is Present. Laboratory - Chemistry and C hemistry - challengeOrdered By: Marcell Snow on 08-03-2023 CO2 [Moles/Vol] 26.0 mmol/L 21.0-32.0 Urea nitrogen/Creatinine [Mass ratio] 21.5 mg/mg 10-20 Laboratory - Hematology and Cell countsOrdered By: Marcell Snow on 08-03-2023 MCH (RBC) [Entitic mass] 28.9 pg 27.0-32.0 MCHC (RBC) [Mass/Vol] 32.2 g/dL 32-36 [facility] Nucleated RBC/100 WBC (Bld) [Ratio] 0 % 0-5 Platelets (Bld) [#/Vol] 146 10*3/uL 150-450 No Panel InformationOrdered By: Marcell Snow on 08-03-2023 Estimated Creatinine Clearance Calc 150.39 ml/min Estimated GFR (MDRD) Amer 181 mL/min >60 Comment on above: GFR Calc Estimated GFR (MDRD) Non-Af Amer 149 mL/min >60 Comment on above: Non- GFR Calc Platelet mean volume Ricky-Ec ker (Bld) [Entitic vol]Ordered By: Marcell Snow on 08-03-2023 Platelet mean volume (Bld) [Entitic vol] 12.2 fL 6.2-12.0 Procedure Reporton 4 Procedure Report [facility] Medical Records Department [address] [place] [address] Procedure Report 08/03/23 1114 MR#: [id number] Acct: [id number] Name: HARRY CORTES Jr. Rep #: [id number] : 1970 52 From: Tomeka Garcia MD PCP: Marylu Mckoy DO Status:ADM IN Location: [facility] [id number] Procedure Report Date of Procedure: 08/03/23 Left heart catheterization; 1. Moderate sedation 2. Selective left cholangiography 3. Selective right cholangiography 4. Measurement of LVEDP 5. Pullback pressure 6. Placement of TR band to close the right radial artery arteriotomy site. Consent; Risk and benefit of procedure explained detail to the patient agreed to proceed informed consent obtained. Preprocedure diagnosis; 52-year-old patient with history of CAD In 2019 patient had a PCI stent of the left circumflex artery using a drug-eluting stent 3 x 24 mm meter. As well had the sidebranch which is mid diagonal branch PCI and stent LAD had nonobstructive atherosclerosis and was treated with medical therapy Patient has been noncompliant he stopped all his medication Also had a history of diabetes hypertension hyperlipidemia. This admission he came with symptoms of chest pain and evaluated with a series of cardiac biomarkers all cardiac biomarkers with high sensitive troponins were negative Further evaluation by nuclear stress test showed evidence of ischemia. With LV function preserved Based on the clinical presentation and abnormal nuclear stress test he underwent cardiac catheterization. Access; 6 Chinese sheaths placed in the right radial artery using [employer] sheath Diagnostic catheters used; 1. Redbird catheter 5 Chinese Procedure in detail; Patient brought to the Energy Rater in fasting state Right radial artery area prepped and draped in the usual sterile fashion. Under fluoroscopic guidance we will proceed with 5 Chinese Redbird catheter Advancing Beverly cannulated the left main without difficulty. Following this the same catheter was used and cannulated the right ostium without difficulty Multiple views of both left and right coronary systems were obtained Same catheter was used to cross the aortic valve placed in the mid ventricle LVEDP measured A pullback pressure was recorded Findings hemodynamics; LVEDP within normal measuring around 12 mmHg There is no systolic gradient across aortic valve on the pullback Coronary angiography; 1. Left main is normal angiographically bifurcating into LAD and left circumflex 2. Left anterior descending has a proximal stenosis prior to the diagonal branch which is around 20-30% The LAD is a large vessel reach all the way to the apex with. 3. Diagonal branch had a patent stent it is a large diagonal which is branching vessel and the stent is patent with no significant atherosclerosis 4. The left circumflex artery had patency of the stent was noted with no significant atherosclerosis 6. RCA moderate to large size, dominant Angiographically RCA has no significant atherosclerosis Conclusion recommendations; This patient has preserved LV function Abnormal nuclear stress test with patency of the left circumflex, diagonal stent The RCA has no significant atherosclerosis in comparison to the previous angiogram in 2019 The LAD had nonobstructive sclerosis 20-30% Recommendations; Intensify medical therapy in the form of dual antiplatelet therapy with Plavix 75 mg in addition to low-dose aspirin 2. Increase the dose of rosuvastatin to 20 mg once a day If needed then you can and also beta-rashid dose metoprolol tartrate 25 mg twice daily No complication in the Energy Rater patient tolerated procedure very well I discussed the finding of cardiac catheterization with the patient as well as with the family and the medical team. Tomeka Garcia MD,[facility] 08/03/23 1125 Cosigner Signature (if applicable): CC: Dr. Marcie London MD; Dr. Tomeka Garcia MD; Dr. James Miller MD; Marylu Mckoy DO Signed Normal RBC Auto (Bld) [#/Vol]Ordere d By: Marcell Snow on 08-03-2023 RBC (Bld) [#/Vol] 5.05 10*6/uL 4.6-6.2 [facility] Serum or plasma calcium bhumi urement (mass/volume)Ordered By: Marcell Snow on 08-03-2023 Calcium [Mass/Vol] 8.7 mg/dL 8.5-10.1 [facility] Serum or plasma creatinine m easurement (mass/volume)Ordered By: Marcell Snow on 08-03-2023 Creatinine [Mass/Vol] 0.60 mg/dL 0.70-1.30 [facility] Comment on above: The validity of the calculated GFR & GFRAA in patients over 70 years has not been determined. Clinical correlation is essential. Serum or plasma urea nitroge n measurement (mass/volume)Ordered By: Marcell Snow on 08-03-2023 Urea nitrogen [Mass/Vol] 13 mg/dL 7-18 Thin prep Papanicolaou smear with manual screeningOrdered By: Marcell Snow on 08-03-2023 Thin prep Papanicolaou smear with manual screening 193 mg/dL 74-106 Comment on above: MANAGEMENT OF PATIEN T CARE PER NURSING PROTOCOL Thin prep Papanicolaou smear with manual screening 3 5-15 Basophil percentageOrdered B y: Marcie White on 08-02-2023 Bilirubin [Mass/Vol] 0.40 mg/dL 0.20-1.00 [facility] Comment on above: For patients on eltr ombopag therapy, use of Dimension [place] TBIL is not recommended. Cholesterol [Mass/Vol] 146 mg/dL <200 Comment on above: <200 mg/dL Desirable 200-240 mg/dL Borderline >240 mg/dL High Risk Protein [Mass/Vol] 6.1 g/dL 6.4-8.2 [facility] Triglyceride [Mass/Vol] 167 mg/dL <199 Comment on above: The drugs N-Acetylcy steine and Metamizole may falsely depress this assay.Serum Triglycerides Reference Interval Normal <150 mg/dL Borderline high 150 - 199 mg/dL High 200 - 499 mg/dL Very High > or = 500 mg/dL Bedside Glucoseon 08-02-2023 FINGERSTICK GLU 453 mg/dL Invalid Interpretation Code 74-106 Comment on above: Result Comment: Insu zain Given MANAGEMENT OF PATIENT CARE PER NURSING PROTOCOL Performed By: #### L 100.0100, L501.4020, L500.2500, L501.5200 #### Laboratory [address] [place], [address] FINGERSTICK GLU 343 mg/dL High [address] [place] [address] Comment on above: Result Comment: RENE GEMENT OF PATIENT CARE PER NURSING PROTOCOL Performed By: #### L 100.0100, L501.4020, L500.2500, L501.5200 #### Laboratory [address] [place], [address] FINGERSTICK GLU 245 mg/dL High [address] [place] [address] Comment on above: Result Comment: RENE GEMENT OF PATIENT CARE PER NURSING PROTOCOL Performed By: #### L 100.0100, L501.4020, L500.2500, L501.5200 #### Laboratory [address] [place], [address] FINGERSTICK GLU 170 mg/dL High [address] [place] [address] Comment on above: Result Comment: RENE GEMENT OF PATIENT CARE PER NURSING PROTOCOL Performed By: #### L 501.080 #### Laboratory [address] [place], [address] CBC W/Diff, Automatedon 07-06 Absolute Lymph 3.14 X10 3/uL Normal 0.83-4.51 Comment on above: Performed By: #### L 100.0100, L501.4020, L500.2500, L501.5200 #### Laboratory [address] [place], [address] Absolute Neut 7.0 X10 3/uL Normal 2.0-7.7 Comment on above: Performed By: #### L 100.0100, L501.4020, L500.2500, L501.5200 #### Laboratory [address] [place], [address] Basophils/100 WBC (Bld) 0.8 % Normal 0-1 Comment on above: Performed By: #### L 100.0100, L501.4020, L500.2500, L501.5200 #### Laboratory [address] [place], [address] Eosinophils/100 WBC (Bld) 2.1 % Normal 0-5 Comment on above: Performed By: #### L 100.0100, L501.4020, L500.2500, L501.5200 #### Laboratory [address] [place], [address] Erythrocyte distribution width (RBC) [Ratio] 13.7 % Normal 11.6-14.6 Comment on above: Performed By: #### L 100.0100, L501.4020, L500.2500, L501.5200 #### Laboratory [address] [place], [address] Hematocrit (Bld) [Volume fraction] 45.5 % Normal 40-54 Comment on above: Performed By: #### L 100.0100, L501.4020, L500.2500, L501.5200 #### Laboratory [address] [place], [address] Hemoglobin (Bld) [Mass/Vol] 14.8 g/dL Normal 13.0-16.5 Comment on above: Performed By: #### L 100.0100, L501.4020, L500.2500, L501.5200 #### Laboratory [address] [place], [address] IG% 0.900 Normal 0.0-0.9 Comment on above: Result Comment: IG% - Immature Granulocytes (promyelocytes, myelocytes and metamyelocytes) > 1% indicates that a LEFT SHIFT is Present. Performed By: #### L 100.0100, L501.4020, L500.2500, L501.5200 #### Laboratory [address] [place], [address] Lymphocytes/100 WBC (Bld) 27.7 % Normal 19-41 Comment on above: Performed By: #### L 100.0100, L501.4020, L500.2500, L501.5200 #### Laboratory [address] [place], [address] MCH (RBC) [Entitic mass] 29.4 pg Normal 27.0-32.0 Comment on above: Performed By: #### L 100.0100, L501.4020, L500.2500, L501.5200 #### Laboratory [address] [place], [address] MCHC (RBC) [Mass/Vol] 32.5 g/dL Normal 32-36 [facility] Comment on above: Performed By: #### L 100.0100, L501.4020, L500.2500, L501.5200 #### Laboratory [address] [place], [address] MCV (RBC) [Entitic vol] 90.3 fL Normal 80-94 Comment on above: Performed By: #### L 100.0100, L501.4020, L500.2500, L501.5200 #### Laboratory [address] [place], [address] Monocytes/100 WBC (Bld) 7.0 % Normal 0-10 Comment on above: Performed By: #### L 100.0100, L501.4020, L500.2500, L501.5200 #### Laboratory [address] [place], [address] Neutrophils/100 WBC (Bld) 61.5 % Normal 47-70 Comment on above: Performed By: #### L 100.0100, L501.4020, L500.2500, L501.5200 #### Laboratory [address] [place], [address] Nucleated RBC (Bld) [#/Vol] 0 10*3/uL Normal 0-5 Comment on above: Performed By: #### L 100.0100, L501.4020, L500.2500, L501.5200 #### Laboratory [address] [place], [address] Platelet mean volume (Bld) [Entitic vol] 12.2 fL High 6.2-12.0 Comment on above: Performed By: #### L 100.0100, L501.4020, L500.2500, L501.5200 #### Laboratory [address] [place], [address] Platelets (Bld) [#/Vol] 142 10*3/uL Low 150-450 Comment on above: Performed By: #### L 100.0100, L501.4020, L500.2500, L501.5200 #### Laboratory [address] [place], [address] RBC (Bld) [#/Vol] 5.04 10*6/uL Normal 4.6-6.2 [facility] Comment on above: Performed By: #### L 100.0100, L501.4020, L500.2500, L501.5200 #### Laboratory [address] [place], [address] RDW SD 45.0 fl High 35.1-43.9 Comment on above: Performed By: #### L 100.0100, L501.4020, L500.2500, L501.5200 #### Laboratory [address] [place], [address] WBC (Bld) [#/Vol] 11.3 10*3/uL High 4.4-11.0 [facility] Comment on above: Performed By: #### L 100.0100, L501.4020, L500.2500, L501.5200 #### Laboratory [address] [place], [address] Comprehensive Metabolic Prof ilon 08-02-2023 Albumin [Mass/Vol] 2.9 g/dL Low 3.2-5.0 [facility] Comment on above: Performed By: #### L 100.0100, L501.4020, L500.2500, L501.5200 #### Laboratory [address] [place], [address] Albumin/Globulin [Mass ratio] 0.9 {ratio} Normal 0.9-2.4 Comment on above: Performed By: #### L 100.0100, L501.4020, L500.2500, L501.5200 #### Laboratory [address] [place], [address] ALK P 79 U/L Normal 45-117 Comment on above: Performed By: #### L 100.0100, L501.4020, L500.2500, L501.5200 #### Laboratory [address] [place], [address] ALT [Catalytic activity/Vol] 22 U/L Normal 16-61 Comment on above: Performed By: #### L 100.0100, L501.4020, L500.2500, L501.5200 #### Laboratory [address] [place], [address] AST [Catalytic activity/Vol] 12 U/L Low 15-37 Comment on above: Performed By: #### L 100.0100, L501.4020, L500.2500, L501.5200 #### Laboratory [address] [place], [address] Bilirubin [Mass/Vol] 0.40 mg/dL Normal 0.20-1.00 [facility] Comment on above: Result Comment: For patients on eltrombopag therapy, use of Dimension [place] TBIL is not recommended. Performed By: #### L 100.0100, L501.4020, L500.2500, L501.5200 #### Laboratory [address] [place], [address] BUN/CRE 19.5 RATIO Normal 10-20 Comment on above: Performed By: #### L 100.0100, L501.4020, L500.2500, L501.5200 #### Laboratory [address] [place], [address] CA,Total 8.2 mg/dL Low 8.5-10.1 Comment on above: Performed By: #### L 100.0100, L501.4020, L500.2500, L501.5200 #### Laboratory [address] [place], [address] Chloride [Moles/Vol] 114 mmol/L High 98-107 [facility] Comment on above: Performed By: #### L 100.0100, L501.4020, L500.2500, L501.5200 #### Laboratory [address] [place], [address] CO2 [Moles/Vol] 22.0 mmol/L Normal 21.0-32.0 Comment on above: Performed By: #### L 100.0100, L501.4020, L500.2500, L501.5200 #### Laboratory [address] [place], [address] Creatinine [Mass/Vol] 0.51 mg/dL Low 0.70-1.30 [facility] Comment on above: Result Comment: The validity of the calculated GFR GFRAA in patients over 70 years has not been determined. Clinical correlation is essential. Performed By: #### L 100.0100, L501.4020, L500.2500, L501.5200 #### Laboratory [address] [place], [address] ECRCL 176.93 ml/min Normal Comment on above: Performed By: #### L 100.0100, L501.4020, L500.2500, L501.5200 #### Laboratory [address] [place], [address] EST GFR - AA 218 mL/min Normal >60 Comment on above: Result Comment: Afri can Mauritian GFR Calc Performed By: #### L 100.0100, L501.4020, L500.2500, L501.5200 #### Laboratory [address] [place], [address] GAP 5 Normal 5-15 Comment on above: Performed By: #### L 100.0100, L501.4020, L500.2500, L501.5200 #### Laboratory [address] [place], [address] GFR/1.73 sq M.predicted among non-blacks MDRD (S/P/Bld) [Vol rate/Area] 180 mL/min/{1.73_m2} Normal >60 Comment on above: Result Comment: Non- GFR Calc Performed By: #### L 100.0100, L501.4020, L500.2500, L501.5200 #### Laboratory [address] [place], [address] Globulin (S) [Mass/Vol] 3.2 g/dL Normal 2.2-4.2 Comment on above: Performed By: #### L 100.0100, L501.4020, L500.2500, L501.5200 #### Laboratory [address] [place], [address] Glucose [Mass/Vol] 187 mg/dL High 74-106 [facility] Comment on above: Result Comment: Fast ing Glucose result greater than or equal to 126 mg/dL suggests DIABETES MELLITUS per A.D.A. criteria. Performed By: #### L 100.0100, L501.4020, L500.2500, L501.5200 #### Laboratory [address] [place], [address] Potassium [Moles/Vol] 3.3 mmol/L Low 3.5-5.1 [facility] Comment on above: Performed By: #### L 100.0100, L501.4020, L500.2500, L501.5200 #### Laboratory [address] [place], [address] Sodium [Moles/Vol] 141 mmol/L Normal 136-145 [facility] Comment on above: Performed By: #### L 100.0100, L501.4020, L500.2500, L501.5200 #### Laboratory [address] [place], [address] T PROT 6.1 g/dL Low 6.4-8.2 Comment on above: Performed By: #### L 100.0100, L501.4020, L500.2500, L501.5200 #### Laboratory [address] [place], [address] Urea nitrogen [Mass/Vol] 10 mg/dL Normal 7-18 Comment on above: Performed By: #### L 100.0100, L501.4020, L500.2500, L501.5200 #### Laboratory [address] [place], [address] Consultation - Cardiologyon 08-02-2023 Consultation - Cardiology [facility] Medical Records Department [address] [place] [address] Consultation - Cardiology 08/02/23 1813 MR#: [id number] Acct: [id number] Name: HARRY CORTES Jr. 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 Has also apical hypokinesia Cardiac care plan recommendation Discussed in detail cardiac care plan with the nursing staff and with the medical team Based on his clinical presentation and symptoms of chest pain in addition to history of PCI and stent of left circumflex and diagonal branch And abnormal nuclear stress test would recommend to evaluate further with cardiac catheterization Approach will be right radial artery approach. And will discuss further plan with the result of cardiac cath. Tomeka Garcia MD,[facility] HPI Consult Data Date of Consult: 08/02/23 HPI Narrative Reason for Consultation: CAD/status post PCI and stent/[place] HPI Narrative: HARRY CORTES, is a 52 M who presents PFSH Medical History Atherosclerosis of cheesh-na coronary artery of cheesh-na heart without angina pectoris Chronic pain Depression DM2 (diabetes mellitus, type 2) Erectile dysfunction Essential hypertension Herniated disc History of non-ST elevation myocardial infarction (NSTEMI) (09/14/18) HLD (hyperlipidemia) Hypokalemia Impingement of left shoulder Impingement of right shoulder Paroxysmal atrial fibrillation Tobacco use Home Medications aspirin 81 mg tablet,delayed release 81 mg PO DAILY #90 tabs 07/29/23 [Rx Last Taken Unknown] brexpiprazole 0.5 mg tablet (Rexulti) 1 mg PO DAILY 07/29/23 [History Last Taken Unknown] nitroglycerin 0.4 mg sublingual tablet 0.4 mg sublingual Q5M PRN Cardiac/Chest Pain #1 BOTTLE 07/29/23 [Rx Last Taken Unknown] omeprazole 20 mg capsule,delayed release 20 mg PO DAILY 07/29/23 [History Last Taken Unknown] rosuvastatin 10 mg tablet (Crestor) 10 mg PO DAILY 07/29/23 [History Last Taken Unknown] empagliflozin 25 mg-linagliptin 5 mg tablet (Glyxambi) 1 tab PO DAILY 08/01/23 [History Last Taken Unknown] meloxicam 15 mg tablet 15 mg PO DAILY 08/01/23 [History Last Taken Unknown] Allergy/AdvReac Type Severity Reaction Status Date / Time pregabalin [From Lyrica] AdvReac Itching Verified 08/01/23 04:54 Family History Father Esophageal cancer Diabetes Myocardial infarction Mother Arthritis Diabetes Surgical History H/O arthroscopic knee surgery History of arthroscopic knee surgery History of back surgery History of coronary artery stent placement (02/13/19) s/p back Social History (Updated 08/01/23 @ 06:[address] Marcie London MD) household members: spouse Smoking Status: Current every day smoker tobacco type: cigarettes Smoking packs per day: 1 Smoking cigarettes per day: 20.0 Tobacco: How many years used: 30 alcohol intake: current alcohol intake frequency: a few times a week Alcohol type: beer substance use type: does not use what type of physical activity do you participate in: none Physical Exam Cardio Cardio Narrative: Underlying cardiac rhythm is sinus rhythm Cardiac exam S1-S2 regular Chest exam is clear to auscultation bilaterally Risk Stratification Risk Stratification Applicable: Yes Age >/= 65: No >/= 3 CAD Risk Factors (HTN, HLD, DM, family hx of CAD, or current smoker): Yes Aspirin Use in the Past 7 Days: Yes Severe Angina (>/= episodes in 24 hours): No EKG ST Changes >/= 0.5mm: No Positive Cardiac Marker: No CONCHITA Risk Stratification Score: 2 CONCHITA % Risk: 8% Risk Objective Data Vital Signs: Vital Signs Temp Pulse Resp BP Pulse Ox O2 Del Method O2 Flow Rate 98 F 67 17 122/84 H 98 Room Air 2 08/02/23 14:49 08/02/23 14:49 08/02/23 14:49 08/02/23 14:49 08/02/23 14:49 08/02/23 14:49 08/02/23 14:00 Oxygen Flow Rate (L/min) 2 Oxygen Delivery Method Room Air Weigh (more content not included)... Normal High density lipoprotein (HD L) measurementOrdered By: Marcie London on 08-02-2023 Cholesterol in HDL (Body fld) [Mass/Vol] 31 mg/dL >40 Comment on above: The drugs N-Acetylcy steine and Metamizole may falsely depress this assay. Reference Range HDL <40 mg/dL Low HDL Cholesterol HDL >or= 60 mg/dL High HDL Cholesterol Laboratory - Chemistry and C hemistry - challengeOrdered By: Marcie London on 08-02-2023 Albumin/Globulin [Mass ratio] 0.9 {ratio} 0.9-2.4 ALP [Catalytic activity/Vol] 79 U/L 45-117 ALT [Catalytic activity/Vol] 22 U/L 16-61 Globulin (S) [Mass/Vol] 3.2 g/dL 2.2-4.2 Lipid Profileon 08-02-2023 Cholesterol [Mass/Vol] 146 mg/dL Normal 200 Comment on above: Result Comment: <200 mg/dL Desirable 200-240 mg/dL Borderline >240 mg/dL High Risk Performed By: #### L 100.0100, L501.4020, L500.2500, L501.5200 #### Laboratory [address] [place], [address] Cholesterol in HDL [Mass/Vol] 31 mg/dL Low Comment on above: Result Comment: The drugs N-Acetylcysteine and Metamizole may falsely depress this assay. Reference Range HDL <40 mg/dL Low HDL Cholesterol HDL >or= 60 mg/dL High HDL Cholesterol Performed By: #### L 100.0100, L501.4020, L500.2500, L501.5200 #### Laboratory [address] [place], [address] Cholesterol in LDL [Mass/Vol] 82 mg/dL Normal 0-130 Comment on above: Performed By: #### L 100.0100, L501.4020, L500.2500, L501.5200 #### Laboratory [address] [place], [address] Cholesterol in VLDL [Mass/Vol] 33 mg/dL Normal 5-40 Comment on above: Performed By: #### L 100.0100, L501.4020, L500.2500, L501.5200 #### Laboratory [address] [place], [address] Triglyceride [Mass/Vol] 167 mg/dL Normal Comment on above: Result Comment: The drugs N-Acetylcysteine and Metamizole may falsely depress this assay. Serum Triglycerides Reference Interval Normal <150 mg/dL Borderline high 150 - 199 mg/dL High 200 - 499 mg/dL Very High > or = 500 mg/dL Performed By: #### L 100.0100, L501.4020, L500.2500, L501.5200 #### Laboratory [address] [place], [address] Low density lipoprotein (LDL ) cholesterol measurementOrdered By: Marcie London on 08-02-2023 Cholesterol in LDL (Body fld) [Moles/Vol] 82 mg/dL 0-130 Stress Reporton 08-02-2023 Stress [facility] [address] [place] [address] MR#: [id number] Acct: [id number] Name: HARRY CORTES Jr. Rep #: [id number] : 1970 52 From: Tomeka Garcia MD Primary Care: Marylu Mckoy, DO Status: ADM ASHA Referring Dr: Segun: Demetrius Cooper Stress Test Report Pharmacologic/Lexiscan myocardial perfusion stress test. Indication; 52-year-old patient with known history of CAD Patient has prior PCI stent in 2019 to sidbranch diagonal as well as circumflex Has symptoms of chest pain., Diabetes mellitus paroxysmal A-fib, COPD emphysema. Evaluated with Lexiscan sestamibi. Stress protocol: Resting EKG demonstrates. Normal sinus rhythm. 0.4 mg of regadenoson was infused per usual protocol followed by rapid intravenous saline flush injection continuous EKG monitoring was performed. The maximum heart rate attained was 90 bpm which was 53% of maximum predicted heart . Stress EKG showed[, no significant change from the resting EKG, with maximum heart rate of 90 bpm. Arrhythmia: No arrhythmia demonstrated Symptoms: Patient had no symptoms of chest pain Blood pressure at rest: 132/82 mmHg, blood pressure at the end of stress: 132/82 mmHg Myocardial perfusion protocol. 11 mCi ]of Technetium 99m Sestamibi was injected at rest. [ 0.4 mg ]of Regadenoson was infused per usual protocol peak infusion 33.5 33.5 mCi ]of Technetium 99m sestamibi was injected. Stress images were obtained stress and rest images were reconstructed and compared in the short axis vertical and horizontal long axis. Gated images were also obtained Perfusion SPECT analysis: Review of the images demonstrate reducedl uptake of sestamibi post stress, apical, distal septal consistent with reversible myocardial ischemia Gated SPECT analysis: The gated ejection fraction is 52% Apical hypokinesia. Conclusion: Abnormal Lexiscan sestamibi with evidence of reversible ischemia in the anterior distal septal and apical region Low normal ejection fraction with apical hypokinesia Recommendation; Due to history of CAD with previous PCI with recommend further evaluation with cardiac catheterization if clinically warranted. Tomeka Garcia MD,[facility] 08/02/23 1140 Date Tomeka Garcia MD CC: Dr. Marcie London MD; Dr. Marcell Snow MD; Dr. Stan Mayers MD; Marylu Mckoy DO Date Dictated: 08/02/231130 Date Transcribed: 08/02/231130 [employer] Operator: FB Signed Normal Thin prep Papanicolaou smear with manual screeningOrdered By: Marcie London on 08-02-2023 Thin prep Papanicolaou smear with manual screening 2.9 g/dL 3.2-5.0 Thin prep Papanicolaou smear with manual screening 12 U/L 15 Very low density lipoprotein (VLDL) cholesterol measurementOrdered By: Marcie London on 08-02-2023 Cholesterol in VLDL Calc [Moles/Vol] 33 mg/dL 5- Absolute lymphocyte countOrd ered By: Stan Mayers on 08-01-2023 Lymphocytes Auto (Unsp spec) [#/Vol] 2.71 10*3/uL 0.83-4.51 Automated lymphocyte count a s percentage of total leukocytesOrdered By: Stan Mayers on 08-01-2023 Lymphocytes/100 WBC Auto (Unsp spec) 22.6 % 19-41 Basic Metabolic Profile (BMP )on 08-01-2023 BUN/CRE 14.7 RATIO Normal 10-20 Comment on above: Order Comment: 'TROP ' Serial specimen #1, #2 or #3: 1 Performed By: #### L 100.0100, L501.4020, L500.2500, L501.5200 #### Laboratory [address] [place], [address] CA,Total 9.3 mg/dL Normal 8.5-10.1 Comment on above: Order Comment: 'TROP ' Serial specimen #1, #2 or #3: 1 Performed By: #### L 100.0100, L501.4020, L500.2500, L501.5200 #### Laboratory [address] [place], [address] Chloride [Moles/Vol] 107 mmol/L Normal 98-107 [facility] Comment on above: Order Comment: 'TROP ' Serial specimen #1, #2 or #3: 1 Performed By: #### L 100.0100, L501.4020, L500.2500, L501.5200 #### Laboratory [address] [place], [address] CO2 [Moles/Vol] 24.0 mmol/L Normal 21.0-32.0 Comment on above: Order Comment: 'TROP ' Serial specimen #1, #2 or #3: 1 Performed By: #### L 100.0100, L501.4020, L500.2500, L501.5200 #### Laboratory [address] [place], [address] Creatinine [Mass/Vol] 1.02 mg/dL Normal 0.70-1.30 [facility] Comment on above: Order Comment: 'TROP ' Serial specimen #1, #2 or #3: 1 Result Comment: The validity of the calculated GFR GFRAA in patients over 70 years has not been determined. Clinical correlation is essential. Performed By: #### L 100.0100, L501.4020, L500.2500, L501.5200 #### Laboratory [address] [place], [address] ECRCL 88.47 ml/min Normal Comment on above: Order Comment: 'TROP ' Serial specimen #1, #2 or #3: 1 Performed By: #### L 100.0100, L501.4020, L500.2500, L501.5200 #### Laboratory [address] [place], [address] EST GFR - AA 99 mL/min Normal >60 Comment on above: Order Comment: 'TROP ' Serial specimen #1, #2 or #3: 1 Result Comment: Afri can Mauritian GFR Calc Performed By: #### L 100.0100, L501.4020, L500.2500, L501.5200 #### Laboratory [address] [place], [address] GAP 5 Normal 5-15 Comment on above: Order Comment: 'TROP ' Serial specimen #1, #2 or #3: 1 Performed By: #### L 100.0100, L501.4020, L500.2500, L501.5200 #### Laboratory [address] [place], [address] GFR/1.73 sq M.predicted among non-blacks MDRD (S/P/Bld) [Vol rate/Area] 82 mL/min/{1.73_m2} Normal >60 Comment on above: Order Comment: 'TROP ' Serial specimen #1, #2 or #3: 1 Result Comment: Non- GFR Calc Performed By: #### L 100.0100, L501.4020, L500.2500, L501.5200 #### Laboratory [address] [place], [address] Glucose [Mass/Vol] 538 mg/dL Invalid Interpretation Code 74-106 Comment on above: Order Comment: 'TROP ' Serial specimen #1, #2 or #3: 1 Result Comment: Crit ical Result(s) Called at: 05:54:03 08/01/2023 by: Kallie Hedrick. Results read back by same. Glucose result greater than or equal to 200 mg/dL suggests DIABETES MELLITUS per A.D.A. criteria. Performed By: #### L 100.0100, L501.4020, L500.2500, L501.5200 #### Laboratory [address] [place], [address] Potassium [Moles/Vol] 3.6 mmol/L Normal 3.5-5.1 [facility] Comment on above: Order Comment: 'TROP ' Serial specimen #1, #2 or #3: 1 Performed By: #### L 100.0100, L501.4020, L500.2500, L501.5200 #### Laboratory [address] [place], [address] Sodium [Moles/Vol] 136 mmol/L Normal 136-145 [facility] Comment on above: Order Comment: 'TROP ' Serial specimen #1, #2 or #3: 1 Performed By: #### L 100.0100, L501.4020, L500.2500, L501.5200 #### Laboratory [address] [place], [address] Urea nitrogen [Mass/Vol] 15 mg/dL Normal 7-18 Comment on above: Order Comment: 'TROP ' Serial specimen #1, #2 or #3: 1 Performed By: #### L 100.0100, L501.4020, L500.2500, L501.5200 #### Laboratory [address] [place], [address] Basophil percentageOrdered B y: Stan Mayers on 08-01-2023 Basophils/100 WBC (Bld) 0.7 % 0-1 Chloride [Moles/Vol] 107 mmol/L 98-107 [facility] Eosinophils/100 WBC (Bld) 2.2 % 0-5 Glucose [Mass/Vol] 538 mg/dL 74-106 [facility] Comment on above: Critical Result(s) C alled at: 05:54:03 08/01/2023 by: Kallie Parikh to Swetha Hedrick. Results read back by same.Glucose result greater than or equal to 200 mg/dLsuggests DIABETES MELLITUS per A.D.A. criteria. Hemoglobin (Bld) [Mass/Vol] 14.4 g/dL 13.0-16.5 Monocytes/100 WBC (Bld) 8.2 % 0-10 Neutrophils (Bld) [#/Vol] 7.9 10*3/uL 2.0-7.7 Neutrophils/100 WBC (Bld) 65.5 % 47-70 Potassium [Moles/Vol] 3.6 mmol/L 3.5-5.1 [facility] Sodium [Moles/Vol] 136 mmol/L 136-145 [facility] WBC (Bld) [#/Vol] 12.0 10*3/uL 4.4-11.0 [facility] Bedside Glucoseon 08-01-2023 FINGERSTICK GLU 372 mg/dL High [address] [place] [address] Comment on above: Result Comment: RENE GEMENT OF PATIENT CARE PER NURSING PROTOCOL Performed By: #### L 100.0100, L501.4020, L500.2500, L501.5200 #### Laboratory [address] [place], [address] FINGERSTICK GLU 237 mg/dL High [address] [place] [address] Comment on above: Result Comment: RENE GEMENT OF PATIENT CARE PER NURSING PROTOCOL Performed By: #### L 501.080 #### Laboratory [address] [place], [address] FINGERSTICK GLU 174 mg/dL High [address] [place] [address] Comment on above: Result Comment: RENE GEMENT OF PATIENT CARE PER NURSING PROTOCOL Performed By: #### L 100.0100, L501.4020, L500.2500, L501.5200 #### Laboratory [address] [place], [address] FINGERSTICK GLU 385 mg/dL High [address] [place] [address] Comment on above: Result Comment: RENE GEMENT OF PATIENT CARE PER NURSING PROTOCOL Performed By: #### L 100.0100, L501.4020, L500.2500, L501.5200 #### Laboratory [address] [place], [address] FINGERSTICK GLU 469 mg/dL Invalid Interpretation Code -[address] [place] [address] Comment on above: Result Comment: Insu zain Given MANAGEMENT OF PATIENT CARE PER NURSING PROTOCOL Performed By: #### L 100.0100, L501.4020, L500.2500, L501.5200 #### Laboratory [address] [place], [address] CBC W/Diff, Automatedon 07-06 Absolute Lymph 2.71 X10 3/uL Normal 0.83-4.51 Comment on above: Performed By: #### L 100.0100, L501.4020, L500.2500, L501.5200 #### Laboratory [address] [place], [address] Absolute Neut 7.9 X10 3/uL High 2.0-7.7 Comment on above: Performed By: #### L 100.0100, L501.4020, L500.2500, L501.5200 #### Laboratory [address] [place], [address] Basophils/100 WBC (Bld) 0.7 % Normal 0-1 Comment on above: Performed By: #### L 100.0100, L501.4020, L500.2500, L501.5200 #### Laboratory [address] [place], [address] Eosinophils/100 WBC (Bld) 2.2 % Normal 0-5 Comment on above: Performed By: #### L 100.0100, L501.4020, L500.2500, L501.5200 #### Laboratory [address] [place], [address] Erythrocyte distribution width (RBC) [Ratio] 13.6 % Normal 11.6-14.6 Comment on above: Performed By: #### L 100.0100, L501.4020, L500.2500, L501.5200 #### Laboratory [address] [place], [address] Hematocrit (Bld) [Volume fraction] 44.2 % Normal 40-54 Comment on above: Performed By: #### L 100.0100, L501.4020, L500.2500, L501.5200 #### Laboratory [address] [place], [address] Hemoglobin (Bld) [Mass/Vol] 14.4 g/dL Normal 13.0-16.5 Comment on above: Performed By: #### L 100.0100, L501.4020, L500.2500, L501.5200 #### Laboratory [address] [place], [address] IG% 0.800 Normal 0.0-0.9 Comment on above: Result Comment: IG% - Immature Granulocytes (promyelocytes, myelocytes and metamyelocytes) > 1% indicates that a LEFT SHIFT is Present. Performed By: #### L 100.0100, L501.4020, L500.2500, L501.5200 #### Laboratory [address] [place], [address] Lymphocytes/100 WBC (Bld) 22.6 % Normal 19-41 Comment on above: Performed By: #### L 100.0100, L501.4020, L500.2500, L501.5200 #### Laboratory [address] [place], [address] MCH (RBC) [Entitic mass] 29.0 pg Normal 27.0-32.0 Comment on above: Performed By: #### L 100.0100, L501.4020, L500.2500, L501.5200 #### Laboratory [address] [place], [address] MCHC (RBC) [Mass/Vol] 32.6 g/dL Normal 32-36 [facility] Comment on above: Performed By: #### L 100.0100, L501.4020, L500.2500, L501.5200 #### Laboratory [address] [place], [address] MCV (RBC) [Entitic vol] 88.9 fL Normal 80-94 Comment on above: Performed By: #### L 100.0100, L501.4020, L500.2500, L501.5200 #### Laboratory [address] [place], [address] Monocytes/100 WBC (Bld) 8.2 % Normal 0-10 Comment on above: Performed By: #### L 100.0100, L501.4020, L500.2500, L501.5200 #### Laboratory [address] [place], [address] Neutrophils/100 WBC (Bld) 65.5 % Normal 47-70 Comment on above: Performed By: #### L 100.0100, L501.4020, L500.2500, L501.5200 #### Laboratory [address] [place], [address] Nucleated RBC (Bld) [#/Vol] 0 10*3/uL Normal 0-5 Comment on above: Performed By: #### L 100.0100, L501.4020, L500.2500, L501.5200 #### Laboratory [address] [place], [address] Platelet mean volume (Bld) [Entitic vol] 11.5 fL Normal 6.2-12.0 Comment on above: Performed By: #### L 100.0100, L501.4020, L500.2500, L501.5200 #### Laboratory [address] [place], [address] Platelets (Bld) [#/Vol] 160 10*3/uL Normal 150-450 Comment on above: Performed By: #### L 100.0100, L501.4020, L500.2500, L501.5200 #### Laboratory [address] [place], [address] RBC (Bld) [#/Vol] 4.97 10*6/uL Normal 4.6-6.2 [facility] Comment on above: Performed By: #### L 100.0100, L501.4020, L500.2500, L501.5200 #### Laboratory [address] [place], [address] RDW SD 43.8 fl Normal 35.1-43.9 Comment on above: Performed By: #### L 100.0100, L501.4020, L500.2500, L501.5200 #### Laboratory [address] [place], [address] WBC (Bld) [#/Vol] 12.0 10*3/uL High 4.4-11.0 [facility] Comment on above: Performed By: #### L 100.0100, L501.4020, L500.2500, L501.5200 #### Laboratory [address] [place], [address] Chest 1 View (Portable)on Chest 1 View (Portable) [facility] Imaging Services [address] [place] [address] Chest 1 View (Portable) MR#: [id number] Acct: [id number] Name: HARRY CORTES Rep #: [id number] : 1970 M 52 From: Silvino Pepe MD PCP: Marylu Mckoy, Status: ADM ASHA Study: Chest 1 View (Portable) Date of Exam: 08/01/23 Exam# [id number] Ordering [place]: [place] [id number] INDICATION: chest pain EXAMINATION/TECHNIQUE: X-RAY - XR Chest 1 View COMPARISON: Chest x-ray from 08/25/2022 FINDINGS: LINES/DEVICES: None. LUNGS: No pulmonary edema or focal airspace consolidation. No sizable pleural effusion. No pneumothorax detected. MEDIASTINUM AND CARDIOVASCULAR STRUCTURES: Heart size within normal limits. Mediastinal contours unremarkable. BONES AND SOFT TISSUES: No acute findings. RAD/Chest 1 View (Portable) IMPRESSION: No radiographic evidence of acute cardiopulmonary disease. Electronically Signed: Silvino Pepe MD at 7:05 EST , CC: Dr. Stan Mayers MD; Marylu Mckoy DO [employer]ret [employer] Operator: Signed Normal Determination of erythrocyte mean corpuscular volume (MCV)Ordered By: Stan Mayers on 08-01-2023 MCV (RBC) [Entitic vol] 88.9 fL 80-94 Emergency Department Summary on 08-01-2023 Emergency Department Summary [facility] Medical Records Department [address] [place] [address] Emergency Department Summary 08/01/23 MR#: [id number] Acct: [id number] Name: HARRY CORTES Jr. Rep #: [id number] : 1970 52 From: Stan Mayers MD PCP: Marylu Mckoy DO Status:REG ER Location: ED HPI History of Present Illness Chief Complaint: Chest Pain Onset/Context/Timing Onset: Today Activity at onset: sudden Timing: Intermittent Quality: Positive for Tightness Location: Substernal Current Severity: Gone Maximum Severity: Moderate Worsened By: Nothing Relieved By: NTG (Took total of 3 5 minutes apart) Associated Symptoms: Positive for Nausea, Diaphoresis, Dyspnea and Lightheadedness; Negative for Vomiting, Cough, Fever, Acid Reflux or Palpitations Narrative Narrative: Patient is a 52-year-old male who has history of atherosclerotic heart disease with stent placement diagonal and circumflex. The circumflex is a large dominant vessel. The circumflex was stented by Dr. Lukasz Marshall February 2019. Patient was also noted to have nonsignificant disease in the RCA. EF was preserved. Patient states he was sitting when he developed tightness in his chest radiating to his back with diaphoresis nausea shortness of breath and lightheadedness. Patient took a total of 3 nitroglycerin. Patient is presently pain-free. Patient is a smoker 1 pack/day. He does have history essential hypertension, hyperlipidemia, type 2 diabetes. He does have a history of GERD. He states this pain is different than his GERD. When he presented with his chest discomfort February 2019 he had an atypical presentation with neck and left shoulder pain. Patient denies black or maroon-colored stool. He denies abdominal pain. Denies intolerance to greasy or fried foods. Patient denies headache, visual, ocular auditory symptoms. Patient denies dyspnea Clinisync distribution, orthopnea or PND. Patient denies urologic symptoms. He takes a baby aspirin a day. He was given 4 baby aspirin in route by squad. Prior Similar Symptoms: Yes Recent Illness/Hospitalization : No CVD Risk Factors: Positive for Hypertension, Diabetes, Hypercholesterolemia and Smoking PE Risk Factors: Negative for Recent Travel/Surgery, Recent Immobilization, Prior DVT or PE, Cancer or OCP + Smoking + >/=35 TAD Risk Factors: Positive for Hypertension; Negative for Marfan's Syndrome or Family History PFSH PFSH Medical History Abscess of neck (09/2020) Atherosclerosis of cheesh-na coronary artery of cheesh-na heart without angina pectoris Chronic pain Depression DM2 (diabetes mellitus, type 2) Erectile dysfunction Essential hypertension Herniated disc History of non-ST elevation myocardial infarction (NSTEMI) (09/14/18) HLD (hyperlipidemia) Hypokalemia Impingement of left shoulder Impingement of right shoulder Left shoulder pain Paroxysmal atrial fibrillation Tobacco use Home Medications aspirin 81 mg tablet,delayed release 81 mg PO DAILY #90 tabs 07/29/23 [Rx Last Taken Unknown] brexpiprazole 0.5 mg tablet (Rexulti) 1 mg PO DAILY 07/29/23 [History Last Taken Unknown] nitroglycerin 0.4 mg sublingual tablet 0.4 mg sublingual Q5M PRN Cardiac/Chest Pain #1 BOTTLE 07/29/23 [Rx Last Taken Unknown] omeprazole 20 mg capsule,delayed release 20 mg PO DAILY 07/29/23 [History Last Taken Unknown] rosuvastatin 10 mg tablet (Crestor) 10 mg PO DAILY 07/29/23 [History Last Taken Unknown] Allergy/AdvReac Type Severity Reaction Status Date / Time pregabalin [From Lyrica] AdvReac Itching Verified 08/01/23 04:54 Family History Father Esophageal cancer Diabetes Myocardial infarction Mother Arthritis Diabetes Surgical History H/O arthroscopic knee surgery History of arthroscopic knee surgery History of back surgery History of coronary artery stent placement (02/13/19) s/p back Social History Smoking Status: Current every day smoker tobacco type: cigarettes Tobacco: How many years used: 30 alcohol intake: current alcohol intake frequency: a few times a week Alcohol type: beer substance use type: does not use what type of physical activity do you participate in: none ROS ROS ED Constitutional Constitutional ED: Denies chills, fever(s), subjective, sweats or weight loss Eyes Eyes: Reports none ENT ENT ED: Denies ear pain, rhinorrhea or sore throat Cardiovascular Cardiovascular: Reports as per HPI; Denies orthopnea or paroxysmal nocturnal dyspnea Respiratory/Chest Respiratory/Chest: Reports dyspnea; Denies cough, dyspnea on exertion, orthopnea or paroxysmal nocturnal dyspnea Gastrointestinal Gastrointestinal: Denies abdominal pain, diarrhea, melena or vomiting Musculoskeletal M (more content not included)... Normal Erythrocyte distribution wid th ratioOrdered By: Stan Mayers on 08-01-2023 Erythrocyte distribution width (RBC) [Ratio] 13.6 % 11.6-14.6 Erythrocyte distribution wid th standard deviationOrdered By: Stan Mayers on 08-01-2023 Erythrocyte distribution width (RBC) [Entitic vol] 43.8 fL 35.1-43.9 H AND P Exam - [facility] 08-01-2023 H&P Exam - Hospitalist [facility] Medical Records Department [address] [place] [address] H P Exam - Hospitalist 08/01/23 0632 MR#: [id number] Acct: [id number] Name: HARRY CORTES Jr. Rep #: [id number] : 1970 52 From: Marcie London MD PCP: Marylu Mckoy, DO Status:REG ER Location: ED HPI - General General Date of Admission: 08/01/23 Date of Service: 08/01/23 Chief Complaint: Chest pain. HPI Narrative The patient is a 52 y/o M w/ PMHx: AMITA not compliant with PAP therapy, diabetes mellitus type II, CAD s/p NSTEMI 09/2018 s/p PCI mid diagonal, 02/2019 PCI circumflex, Chronic back pain following with pain management, HTN, HLD, PAF, Tobacco use, recent 07/29/23 Cardiology visit during which patient reported he stopped all of his medication including his antiplt therapies secondary to being tired of taking them with noted preference per cardiology to obtain a surveillance stress test in addition to strong encouragement to consider anticoagulation given his [id number] score of 2 who now presents to the [facility] ED on 08/01/23 with history of onset of chest discomfort described as a tightness in the substernal region with associated nausea, dyspnea, lightheadedness and diaphoresis with self administration of nitroglycerin x 3 at home with EMS call and administration of full-strength aspirin therapy upon their arrival. He notes being chest pain-free at this time. Workup in the ED included T97.6, heart rate 74, BP 99/59, respiratory rate 15, 95% on room air, CBC with WBC 12, hemoglobin 14.4, platelet 160 with left shift, BMP with glucose 538 otherwise not marked appearing, troponin 18, EKG with sinus rhythm with mild QT prolongation with QTc 464 with no acute evidence of ischemia, chest x-ray with no acute cardiopulmonary finding with final read pending. In the ED patient ministered [place] 1 tablet p.o. x 1. PFSH Medical History Atherosclerosis of cheesh-na coronary artery of cheesh-na heart without angina pectoris Chronic pain Depression DM2 (diabetes mellitus, type 2) Erectile dysfunction Essential hypertension Herniated disc History of non-ST elevation myocardial infarction (NSTEMI) (09/14/18) HLD (hyperlipidemia) Hypokalemia Impingement of left shoulder Impingement of right shoulder Paroxysmal atrial fibrillation Tobacco use Home Medications aspirin 81 mg tablet,delayed release 81 mg PO DAILY #90 tabs 07/29/23 [Rx Last Taken Unknown] brexpiprazole 0.5 mg tablet (Rexulti) 1 mg PO DAILY 07/29/23 [History Last Taken Unknown] nitroglycerin 0.4 mg sublingual tablet 0.4 mg sublingual Q5M PRN Cardiac/Chest Pain #1 BOTTLE 07/29/23 [Rx Last Taken Unknown] omeprazole 20 mg capsule,delayed release 20 mg PO DAILY 07/29/23 [History Last Taken Unknown] rosuvastatin 10 mg tablet (Crestor) 10 mg PO DAILY 07/29/23 [History Last Taken Unknown] empagliflozin 25 mg-linagliptin 5 mg tablet (Glyxambi) 1 tab PO DAILY 08/01/23 [History Last Taken Unknown] meloxicam 15 mg tablet 15 mg PO DAILY 08/01/23 [History Last Taken Unknown] Allergy/AdvReac Type Severity Reaction Status Date / Time pregabalin [From Lyrica] AdvReac Itching Verified 08/01/23 04:54 Family History Father Esophageal cancer Diabetes Myocardial infarction Mother Arthritis Diabetes Surgical History H/O arthroscopic knee surgery History of arthroscopic knee surgery History of back surgery History of coronary artery stent placement (02/13/19) s/p back Social History (Updated 08/01/23 @ 06:[address] Marcie London MD) household members: spouse Smoking Status: Current every day smoker tobacco type: cigarettes Smoking packs per day: 1 Smoking cigarettes per day: 20.0 Tobacco: How many years used: 30 alcohol intake: current alcohol intake frequency: a few times a week Alcohol type: beer substance use type: does not use what type of physical activity do you participate in: none ROS ROS Narrative Admission Review of Systems: CONSTITUTIONAL: No weight loss, fever, chills, + weakness or fatigue. HEENT: Eyes: No visual loss, blurred vision, double vision or yellow sclerae. Ears, Nose, Throat: No hearing loss, sneezing, congestion, runny nose or sore throat. SKIN: No rash or itching, lesions, wounds. CARDIOVASCULAR: + Chest pain. No palpitations, edema, orthopnea, syncopal events. RESPIRATORY: + Dyspnea. No cough or sputum, wheezing, hemoptysis. GASTROINTESTINAL: + Nausea. No vomiting or diarrhea, abdominal pain, melena, BRBPR. GENITOURINARY: No dysuria, frequency, urgency or retention. NEUROLOGICAL: No headache, dizziness, syncope, paralysis, ataxia, numbness or tingling in the extremities, focal weakness, change in bowel or bladder control, seizure. MUSCULOSKELETAL: + muscle, back pain, joint pain or stiffness. HEM (more content not included)... Normal Hematocrit Auto (Bld) [Volum e fraction]Ordered By: Stan Mayers on 08-01-2023 Hematocrit (Bld) [Volume fraction] 44.2 % 40-54 Immature granulocytes/100 WB C Auto (Bld)Ordered By: Stan Mayers on 08-01-2023 Immature granulocytes/100 WBC (Bld) 0.800 % 0.0-0.9 Comment on above: IG% - Immature Granu locytes (promyelocytes, myelocytes and metamyelocytes) > 1% indicates that a LEFT SHIFT is Present. L501.4020on 08-01-2023 TROPONIN-I HS 19 pg/mL Normal 3.0-78.0 Comment on above: Order Comment: 'TROP ' Serial specimen #1, #2 or #3: 1 Result Comment: Plea se Note: New Test Units and Gender Specific Reference Ranges. For more information see Policy Stat Procedure [place] High Sensitivity Troponin (TNIH) and attachments. Performed By: #### L 100.0100, L501.4020, L500.2500, L501.5200 #### Laboratory [address] [place] [address]. [place], [address] TROPONIN-I HS 21 pg/mL Normal 3.0-78.0 Comment on above: Result Comment: Plea se Note: New Test Units and Gender Specific Reference Ranges. For more information see Policy Stat Procedure [place] High Sensitivity Troponin (TNIH) and attachments. Performed By: #### L 100.0100, L501.4020, L500.2500, L501.5200 #### Laboratory [address] [place], [address] L501.5425on 08-01-2023 TROPONIN-I HS 18 pg/mL Normal 3.0-78.0 Comment on above: Order Comment: 'TROP ' Serial specimen #1, #2 or #3: 1 Result Comment: Darcy steele Note: New Test Units and Gender Specific Reference Ranges. For more information see Policy Stat Procedure [place] High Sensitivity Troponin (TNIH) and attachments. Performed By: #### L 100.0100, L501.4020, L500.2500, L501.5200 #### Laboratory [address] [place], [address] Laboratory - Chemistry and C hemistry - challengeOrdered By: Stan Mayers on 08-01-2023 CO2 [Moles/Vol] 24.0 mmol/L 21.0-32.0 Urea nitrogen/Creatinine [Mass ratio] 14.7 mg/mg 10-20 Laboratory - Chemistry and C hemistry - challengeOrdered By: Marcie London on 08-01-2023 Magnesium [Mass/Vol] 2.4 mg/dL 1.6-2.6 [facility] Laboratory - Hematology and Cell countsOrdered By: Stan Mayers on 08-01-2023 MCH (RBC) [Entitic mass] 29.0 pg 27.0-32.0 MCHC (RBC) [Mass/Vol] 32.6 g/dL 32-36 [facility] Nucleated RBC/100 WBC (Bld) [Ratio] 0 % 0-5 Platelets (Bld) [#/Vol] 160 10*3/uL 150-450 Magnesiumon 08-01-2023 Magnesium [Mass/Vol] 2.4 mg/dL Normal 1.6-2.6 [facility] Comment on above: Order Comment: Comme nts: may add to ED labs Performed By: #### L 501.5200 #### Laboratory [address] [place], [address] No Panel InformationOrdered By: Marcie London on 08-01-2023 Troponin I High Sensitivity 19 pg/mL 3.0-78.0 Comment on above: Please Note: [place] t Units and Gender Specific Reference Ranges. For more information see Policy Stat Procedure [place] High Sensitivity Troponin (TNIH) and attachments. No Panel InformationOrdered By: Stan Mayers on 08-01-2023 Estimated Creatinine Clearance Calc 88.47 ml/min Estimated GFR (MDRD) Amer 99 mL/min >60 Comment on above: GFR Calc Estimated GFR (MDRD) Non-Af Amer 82 mL/min >60 Comment on above: Non- GFR Calc Platelet mean volume Ricky-Ec ker (Bld) [Entitic vol]Ordered By: Stan Mayers on 08-01-2023 Platelet mean volume (Bld) [Entitic vol] 11.5 fL 6.2-12.0 RBC Auto (Bld) [#/Vol]Ordere d By: Stan Mayers on 08-01-2023 RBC (Bld) [#/Vol] 4.97 10*6/uL 4.6-6.2 [facility] Serum or plasma calcium bhumi urement (mass/volume)Ordered By: Stan Mayers on 08-01-2023 Calcium [Mass/Vol] 9.3 mg/dL 8.5-10.1 [facility] Serum or plasma cardiac trop onin I panel by high sensitivity methodOrdered By: Stan Mayers on 08-01-2023 Tropinin I.cardiac panel High sensitivity method 18 pg/mL 3.0-78.0 Comment on above: Please Note: [place] t Units and Gender Specific Reference Ranges. For more information see Policy Stat Procedure [place] High Sensitivity Troponin (TNIH) and attachments. Serum or plasma creatinine m easurement (mass/volume)Ordered By: Stan Mayers on 08-01-2023 Creatinine [Mass/Vol] 1.02 mg/dL 0.70-1.30 [facility] Comment on above: The validity of the calculated GFR & GFRAA in patients over 70 years has not been determined. Clinical correlation is essential. Serum or plasma urea nitroge n measurement (mass/volume)Ordered By: Stan Mayers on 08-01-2023 Urea nitrogen [Mass/Vol] 15 mg/dL 7-18 Thin prep Papanicolaou smear with manual screeningOrdered By: Marcie London on 08-01-2023 Thin prep Papanicolaou smear with manual screening 469 mg/dL 74-106 Comment on above: Insulin GivenMANAGEM ENT OF PATIENT CARE PER NURSING PROTOCOL Thin prep Papanicolaou smear with manual screeningOrdered By: Stan Mayers on 08-01-2023 Thin prep Papanicolaou smear with manual screening 5 5-15 Cardiology Visit Reporton Cardiology Visit Report [facility] [address] [place] [address] OFFICE VISIT Date of Service: 07/29/23 MR#: [id number] Acct: [id number] Name: HARRY CORTES Jr. Rep #: [id number] : 1970 Provider: CHOCO crespo Age/Sex: 52/M Location: [facility] Status: Signed HPI HPI History of Present Illness Details: This is a 52-year-old gentleman who presents here today for an overdue follow-up visit. He was last seen in our office in March of 2021.He has a history of coronary artery disease with acute non- ST myocardial infarction in September of 2018 in which he underwent stenting of his mid diagonal. There were concerns over his LAD disease however it was difficult to access the LAD . There was concern that if continued attempts were made that he might have some dissection of his LAD. In February 2019 he underwent stenting of his circumflex. LAD was not attempted at that time for angioplasty. He also has a history of hypertension, hyperlipidemia, paroxysmal atrial fibrillation, tobacco abuse, chronic pain. He states that he stopped all of his medications, because he was tired of taking them. From a cardiac standpoint, the patient is doing well. His accompanies him to the office today. He denies any palpitations, chest pain, pressure or heaviness. He denies SOB, Orthopnea, and PND. He does not have bleeding issues; no blood in urine, stool or nosebleeds. He does acknowledge a decrease in energy level-he attributes this to seasonal depression. He denies myalgias, or claudication. He does not have edema, or sudden weight gain. He denies dizziness, lightheadedness, syncopal or near syncopal episodes, and headaches. He continues to smoke 1 pack/day. Intake Vital Signs 08/20/22 19:42 07/29/23 14:11 07/29/23 14:11 Height 5 ft 10 in 5 ft 10 in 5 ft 10 in Weight: 182 lb BMI 26.1 BP 127/86 H Blood Pressure Location Lt brachial Position Sitting Respiration 18 Pulse 72 Pulse Source Monitor Pulse Oximetry (%) 98 Intake Visit Reasons: OVERDUE FOR OV/PREV DN PT Placement Secretary Required: No Is patient in pain?: No Allergies pregabalin [From Lyrica] Adverse Reaction (Verified 07/29/23 14:25) Itching Medications aspirin 81 mg tablet,delayed release 81 mg PO DAILY #90 tabs 07/29/23 [Rx Confirmed 07/29/23] brexpiprazole 0.5 mg tablet (Rexulti) 1 mg PO DAILY 07/29/23 [History Confirmed 07/29/23] nitroglycerin 0.4 mg sublingual tablet 0.4 mg sublingual Q5M PRN Cardiac/Chest Pain #1 BOTTLE 07/29/23 [Rx Confirmed 07/29/23] omeprazole 20 mg capsule,delayed release 20 mg PO DAILY 07/29/23 [History Confirmed 07/29/23] rosuvastatin 10 mg tablet (Crestor) 10 mg PO DAILY 07/29/23 [History Confirmed 07/29/23] Nurse's Note: Patient to call with current list of medications [facility] Medical History Abscess of neck (09/2020) Atherosclerosis of cheesh-na coronary artery of cheesh-na heart without angina pectoris Chronic pain Depression DM2 (diabetes mellitus, type 2) Erectile dysfunction Essential hypertension Herniated disc History of non-ST elevation myocardial infarction (NSTEMI) (09/14/18) HLD (hyperlipidemia) Hypokalemia Impingement of left shoulder Impingement of right shoulder Left shoulder pain Paroxysmal atrial fibrillation Tobacco use Surgical History H/O arthroscopic knee surgery History of arthroscopic knee surgery History of back surgery History of coronary artery stent placement (02/13/19) s/p back Family History Father Esophageal cancer Diabetes Myocardial infarction Mother Arthritis Diabetes Social History Smoking Status: Current every day smoker tobacco type: cigarettes Tobacco: How many years used: 30 alcohol intake: current alcohol intake frequency: a few times a week Alcohol type: beer substance use type: does not use what type of physical activity do you participate in: none ROS Const Const: Positive for fatigue (attributes to seasonal depression); Negative for weakness, fever(s), headache(s), chills, frequent falls, weight gain or weight loss Eyes Eyes: Negative for blind spots, loss of peripheral vision, transient loss of vision, blurry vision, change in vision, double vision, floaters or tunnel vision ENT ENT: Negative for headache(s), dizziness, Nosebleed/epistaxis, balance problems or neck pain Cardio Chest Pain: No Palpitations: No Edema: None Muscle aches with walking: None Resp Respiratory: Negative for SOB with activity, SOB at rest or SOB orthopnea SOB lying down GI GI: Negative nausea, vomiting, heartburn, bloating, vomiting blood/hematemesis, bright, red blood in stools or black,tarry stools (more content not included)... Normal Basophil percentageOrdered B y: Marylu Ohnger on 06-09-2023 Bilirubin [Mass/Vol] 0.40 mg/dL 0.20-1.00 [facility] Comment on above: For patients on eltr ombopag therapy, use of Dimension [place] TBIL is not recommended. Chloride [Moles/Vol] 101 mmol/L 98-107 [facility] Cholesterol [Mass/Vol] 248 mg/dL <200 Comment on above: <200 mg/dL Desirable 200-240 mg/dL Borderline >240 mg/dL High Risk Glucose [Mass/Vol] 423 mg/dL 74-106 [facility] Comment on above: Glucose result great er than or equal to 200 mg/dLsuggests DIABETES MELLITUS per A.D.A. criteria. Potassium [Moles/Vol] 4.4 mmol/L 3.5-5.1 [facility] Comment on above: Slight Hemolysis, Re sult may be falsely increased. Protein [Mass/Vol] 8.1 g/dL 6.4-8.2 [facility] Sodium [Moles/Vol] 132 mmol/L 136-145 [facility] Triglyceride [Mass/Vol] 293 mg/dL <199 Comment on above: The drugs N-Acetylcy steine and Metamizole may falsely depress this assay.Serum Triglycerides Reference Interval Normal <150 mg/dL Borderline high 150 - 199 mg/dL High 200 - 499 mg/dL Very High > or = 500 mg/dL WBC (Bld) [#/Vol] 11.5 10*3/uL 4.4-11.0 [facility] Blood erythrocytes count (nu mber/volume)Ordered By: Marylu Mckoy on 06-09-2023 RBC (Bld) [#/Vol] 6.14 10*6/uL 4.6-6.2 [facility] Blood hemoglobin measurement (mass/volume)Ordered By: Marylu Mckoy on 06-09-2023 Hemoglobin (Bld) [Mass/Vol] 17.6 g/dL 13.0-16.5 Blood platelet mean volumeOr dered By: Marylu Mckoy on 06-09-2023 Platelet mean volume (Bld) [Entitic vol] 12.4 fL 6.2-12.0 Determination of erythrocyte mean corpuscular volume (MCV)Ordered By: Marylu Mckoy on 06-09-2023 MCV (RBC) [Entitic vol] 87.9 fL 80-94 Hematocrit Auto (Bld) [Volum e fraction]Ordered By: Marylu Mckoy on 06-09-2023 Hematocrit (Bld) [Volume fraction] 54.0 % 40-54 Laboratory - Chemistry and C hemistry - challengeOrdered By: Marylu Mckoy on 06-09-2023 ALP [Catalytic activity/Vol] 125 U/L 45-117 ALT [Catalytic activity/Vol] 28 U/L 16-61 CO2 [Moles/Vol] 25.0 mmol/L 21.0-32.0 Globulin (S) [Mass/Vol] 4.3 g/dL 2.2-4.2 Urea nitrogen/Creatinine [Mass ratio] 13.4 mg/mg 10-20 Laboratory - Hematology and Cell countsOrdered By: Marylu Mckoy on 06-09-2023 Erythrocyte distribution width (RBC) [Entitic vol] 40.6 fL 35.1-43.9 Erythrocyte distribution width (RBC) [Ratio] 12.5 % 11.6-14.6 MCH (RBC) [Entitic mass] 28.7 pg 27.0-32.0 MCHC Auto (RBC) [Mass/Vol]Or dered By: Marylu Mckoy on 06-09-2023 MCHC (RBC) [Mass/Vol] 32.6 g/dL 32-36 [facility] No Panel InformationOrdered By: Marylu Mckoy on 06-09-2023 Estimated GFR (MDRD) Amer 115 mL/min >60 Comment on above: GFR Calc Estimated GFR (MDRD) Non-Af Amer 95 mL/min >60 Comment on above: Non- GFR Calc Prostate Specific Antigen Screen 2.20 ng/mL 0.00-4.00 Comment on above: This test was perfor med using the TPSA assay method for the[facility]. Values obtained with differentassay methods cannot be used interchangably.When changing PSA assays in the course of monitoring apatient, additional sequential testing should be carriedout to confirm baseline values. Thyroid Stimulating Hormone (TSH) 0.60 uIU/mL 0.358-3.74 Urine Microalbumin/Creatini ne Ratio 116.4 mg/g CRE <30 Platelets bldOrdered By: Ayan Mckoy on 06-09-2023 Platelets (Bld) [#/Vol] 205 10*3/uL 150-450 Serum or plasma albumin bhumi urement (mass/volume)Ordered By: Marylu Mckoy on 06-09-2023 Albumin [Mass/Vol] 3.8 g/dL 3.2-5.0 [facility] Serum or plasma albumin/glob ulin mass ratioOrdered By: Marylu Mckoy on 06-09-2023 Albumin/Globulin [Mass ratio] 0.9 {ratio} 0.9-2.4 Serum or plasma calcium bhumi urement (mass/volume)Ordered By: Marylu Mckoy on 06-09-2023 Calcium [Mass/Vol] 9.6 mg/dL 8.5-10.1 [facility] Serum or plasma cholesterol in HDL measurement (mass/volume)Ordered By: Marylu Mckoy on 06-09-2023 Cholesterol in HDL [Mass/Vol] 36 mg/dL >40 Comment on above: The drugs N-Acetylcy steine and Metamizole may falsely depress this assay. Reference Range HDL <40 mg/dL Low HDL Cholesterol HDL >or= 60 mg/dL High HDL Cholesterol Serum or plasma cholesterol in VLDL measurement (mass/volume)Ordered By: Marylu Mckoy on 06-09-2023 Cholesterol in VLDL [Mass/Vol] 59 mg/dL 5-40 Serum or plasma creatinine m easurement (mass/volume)Ordered By: Marylu Mckoy on 06-09-2023 Creatinine [Mass/Vol] 0.90 mg/dL 0.70-1.30 [facility] Comment on above: The validity of the calculated GFR & GFRAA in patients over 70 years has not been determined. Clinical correlation is essential. Serum or plasma low density lipoprotein (LDL) cholesterol measurement (mass/volume)Ordered By: Marylu Mckoy on 06-09-2023 Cholesterol in LDL [Mass/Vol] 153 mg/dL 0-130 Serum or plasma urea nitroge n measurement (mass/volume)Ordered By: Marylu Mckoy on 06-09-2023 Urea nitrogen [Mass/Vol] 12 mg/dL 7-18 Thin prep Papanicolaou smear with manual screeningOrdered By: Marylu Mckoy on 06-09-2023 Thin prep Papanicolaou smear with manual screening 13 U/L 15-37 Comment on above: Slight Hemolysis, Re sult may be falsely increased. Thin prep Papanicolaou smear with manual screening 6 5-15 Thin prep Papanicolaou smear with manual screening 34.0 mg/L NO RANGE EST. Urine creatinine measurement (mass/volume)Ordered By: Marylu Mckoy on 06-09-2023 Creatinine (U) [Mass/Vol] 29.20 mg/dL NO RANGE EST. Whole blood hemoglobin A1c/t otal hemoglobin ratio (mass fraction)Ordered By: Marylu Mckoy on 06-09-2023 HbA1c (Bld) [Mass fraction] 11.2 % 3.8-5.6 Comment on above: Normal < 5.7 % Predi abetic 5.7 - 6.4 % Diabetic >or= 6.5 % Please note range changes. Absolute lymphocyte countOrd ered By: ED PROVIDER on 08-20-2022 Lymphocytes Auto (Unsp spec) [#/Vol] 3.18 10*3/uL 0.83-4.51 Basophil percentageOrdered B y: ED PROVIDER on 08-20-2022 Basophils/100 WBC (Bld) 0.9 % 0-1 Chloride [Moles/Vol] 105 mmol/L 98-107 [facility] Eosinophils/100 WBC (Bld) 2.3 % 0-5 Glucose [Mass/Vol] 418 mg/dL 74-106 [facility] Comment on above: Glucose result great er than or equal to 200 mg/dLsuggests DIABETES MELLITUS per A.D.A. criteria. Neutrophils (Bld) [#/Vol] 7.0 10*3/uL 2.0-7.7 Neutrophils/100 WBC (Bld) 61.0 % 47-70 Potassium [Moles/Vol] 4.0 mmol/L 3.5-5.1 [facility] Sodium [Moles/Vol] 138 mmol/L 136-145 [facility] WBC (Bld) [#/Vol] 11.4 10*3/uL 4.4-11.0 [facility] Blood erythrocytes count (nu mber/volume)Ordered By: ED PROVIDER on 08-20-2022 RBC (Bld) [#/Vol] 5.44 10*6/uL 4.6-6.2 [facility] Blood hemoglobin measurement (mass/volume)Ordered By: ED PROVIDER on 08-20-2022 Hemoglobin (Bld) [Mass/Vol] 16.4 g/dL 13.0-16.5 Blood lymphocytes/100 leukoc ytesOrdered By: ED PROVIDER on 08-20-2022 Lymphocytes/100 WBC (Bld) 27.8 % 19-41 Blood monocytes/100 leukocyt esOrdered By: ED PROVIDER on 08-20-2022 Monocytes/100 WBC (Bld) 7.3 % 0-10 Blood platelet mean volumeOr dered By: ED PROVIDER on 08-20-2022 Platelet mean volume (Bld) [Entitic vol] 10.8 fL 6.2-12.0 Determination of erythrocyte mean corpuscular volume (MCV)Ordered By: ED PROVIDER on 08-20-2022 MCV (RBC) [Entitic vol] 91.0 fL 80-94 Hematocrit Auto (Bld) [Volum e fraction]Ordered By: ED PROVIDER on 08-20-2022 Hematocrit (Bld) [Volume fraction] 49.5 % 40-54 Laboratory - Chemistry and C hemistry - challengeOrdered By: ED PROVIDER on 08-20-2022 CO2 [Moles/Vol] 25.0 mmol/L 21.0-32.0 Urea nitrogen/Creatinine [Mass ratio] 14.5 mg/mg 10-20 Laboratory - Hematology and Cell countsOrdered By: ED PROVIDER on 08-20-2022 Erythrocyte distribution width (RBC) [Entitic vol] 42.7 fL 35.1-43.9 Erythrocyte distribution width (RBC) [Ratio] 13.1 % 11.6-14.6 Immature granulocytes/100 WBC (Bld) 0.700 % 0.0-0.9 Comment on above: IG% - Immature Granu locytes (promyelocytes, myelocytes and metamyelocytes) > 1% indicates that a LEFT SHIFT is Present. MCH (RBC) [Entitic mass] 30.1 pg 27.0-32.0 Nucleated RBC/100 WBC (Bld) [Ratio] 0 % 0-5 MCHC Auto (RBC) [Mass/Vol]Or dered By: ED PROVIDER on 08-20-2022 MCHC (RBC) [Mass/Vol] 33.1 g/dL 32-36 [facility] No Panel InformationOrdered By: Dr. Kiser on 08-20-2022 Troponin I High Sensitivity 11 pg/mL 3.0-78.0 Comment on above: Please Note: [place] t Units and Gender Specific Reference Ranges. For more information see Policy Stat Procedure [place] High Sensitivity Troponin (TNIH) and attachments. D-Dimer Quantitative (PE/DVT) < 0.27 FEU/ug/m 0.27-0.49 Comment on above: NORMAL D-Dimer level (<0.50) indicates no DVT or PE. No Panel InformationOrdered By: ED PROVIDER on 08-20-2022 Estimated Creatinine Clearance Calc 95.05 ml/min Estimated GFR (MDRD) Amer 106 mL/min >60 Comment on above: GFR Calc Estimated GFR (MDRD) Non-Af Amer 87 mL/min >60 Comment on above: Non- GFR Calc Platelets bldOrdered By: ED PROVIDER on 08-20-2022 Platelets (Bld) [#/Vol] 181 10*3/uL 150-450 Serum or plasma calcium bhumi urement (mass/volume)Ordered By: ED PROVIDER on 08-20-2022 Calcium [Mass/Vol] 9.2 mg/dL 8.5-10.1 [facility] Serum or plasma creatinine m easurement (mass/volume)Ordered By: ED PROVIDER on 08-20-2022 Creatinine [Mass/Vol] 0.96 mg/dL 0.70-1.30 [facility] Comment on above: The validity of the calculated GFR & GFRAA in patients over 70 years has not been determined. Clinical correlation is essential. Serum or plasma urea nitroge n measurement (mass/volume)Ordered By: ED PROVIDER on 08-20-2022 Urea nitrogen [Mass/Vol] 14 mg/dL 7-18 Thin prep Papanicolaou smear with manual screeningOrdered By: ED PROVIDER on 08-20-2022 Thin prep Papanicolaou smear with manual screening 8 5-15 [facility] 01-01-2021 [facility] Telephone (RHBATH) SEBASTIANHARRY Quiñonez ([id number]) 1970 M Date Time Provider Department 01/01/21 [facility] During your visit today, we recorded the following information about you: Diana Cox LPN 01/01/2021 4:30 PM Signed Patient calling for results. YURIDIA Martin MD 01/02/2021 12:42 PM Signed He was notified already about high sugars. We discuss results during visit unless urgent Diana Cox LPN 01/02/2021 3:04 PM Signed Patient notified and verbalized understanding. Diana Cox LPN Allergies As of Date: 01/01/2021 Noted Allergy Reaction LYRICA (PREGABALIN) 01/30/2013 9 - Itching Date Reviewed: 12/04/2020 Reviewed by: Diana Cox LPN - Fully Assessed Reason for Visit: Results [95] Prescriptions as of 01/01/2021 Sig: ASPIRIN 81 MG TABLET,DELAYED * Take 81 mg by mouth once renan* TICAGRELOR 90 MG TABLET Take 90 mg by mouth twice kim* CARVEDILOL 3.125 MG TABLET Take 3.125 mg by mouth twice * EMPAGLIFLOZIN 25 MG TABLET Take 25 mg by mouth daily wit* GLIMEPIRIDE 2 MG TABLET Take 2 mg by mouth daily with* BUPROPION XL 300 MG 24 HR TAB Take 300 mg by mouth once kim* DULOXETINE 30 MG CAPSULE,KANA* Take 30 mg by mouth once renan* Patient not taking: Reported on 12/04/2020 JANUVIA 100 MG TABLET Take 100 mg by mouth once kim* Patient not taking: Reported on 12/04/2020 TIZANIDINE 4 MG TABLET Take 4 mg by mouth every 6 ho* Patient not taking: Reported on 12/04/2020 FENOFIBRATE NANOCRYSTALLIZED * Take 145 mg by mouth once kim* Patient not taking: Reported on 12/04/2020 ATORVASTATIN 80 MG TABLET Take 80 mg by mouth once renan* ARIPIPRAZOLE 10 MG TABLET Take 10 mg by mouth once renan* INSULIN GLARGINE (U-100) 100 * Inject 55 Units subcutaneousl* Patient not taking: Reported on 12/04/2020 OXYCODONE ER 20 MG TABLET,EXT* Take 20 mg by mouth every 12 * Patient not taking: Reported on 12/04/2020 IBUPROFEN 800 MG TABLET Take 800 mg by mouth every 6 * Patient not taking: Reported on 12/04/2020 OMEGA-3 FATTY ACIDS-VITAMIN E* Take 1 capsule by mouth twice* Patient not taking: Reported on 12/04/2020 COENZYME Q10 100 MG CAPSULE Take 100 mg by mouth once kim* Patient not taking: Reported on 12/04/2020 CHOLECALCIFEROL (VITAMIN D3) * Take 1,000 Units by mouth onc* Patient not taking: Reported on 12/04/2020 METFORMIN 1,000 MG TABLET Take 1,000 mg by mouth twice * OMEPRAZOLE 20 MG CAPSULE,KANA* Take 20 mg by mouth once renan* LISINOPRIL 10 MG TABLET Take 10 mg by mouth once renan* TIAGABINE 4 MG TABLET Take one tablet in AM AND two t* HYDROMORPHONE 4 MG TABLET Take 4 mg by mouth every 6 ho* SERTRALINE 100 MG TABLET Take two tablets by mouth onc* DULOXETINE 60 MG CAPSULE,KANA* Take 120 mg by mouth once kim* Problem List As Of Date 01/01/2021 Noted Resolved Back pain [M54.9] 01/30/2013 Abdominal pain, other specified site [R10.9] 01/30/2013 Degeneration of lumbar or lumbosacral intervert*05/24/2014 Thoracic or lumbosacral neuritis or radiculitis*05/24/2014 Spinal stenosis in cervical region [M48.02] 08/16/2014 Cervical spondylosis without myelopathy [M47.81*08/16/2014 HTN (hypertension) [I10] 10/30/2014 Hyperlipidemia [E78.5] 10/30/2014 Atrial fibrillation (HCC) [I48.91] 10/30/2014 Obesity [E66.9] 10/30/2014 Depression [F32.9] 10/30/2014 AMITA (obstructive sleep apnea) [G47.33] 10/30/2014 Tobacco use [Z72.0] 10/30/2014 Diabetes mellitus type 2, controlled, without c*10/30/2014 GERD (gastroesophageal reflux disease) [K21.9] 10/30/2014 Polycythemia (HCC) [D75.1] 09/03/2015 Encounter Status:Closed by DIANA COX on 01/01/21 [facility] 12-30-2020 CNP[facility] Telephone (RHBATH) HARRY CORTES ([id number]) 1970 M Date Time Provider Department 12/30/20 SUE ORELLANA During your visit today, we recorded the following information about you: Diaan Cox LPN 12/30/2020 2:52 PM Signed ----- Message from Sue Orellana MD sent at 12/28/2020 11:15 AM EDT ----- High blood sugars - increase water intake. D/w PCP Diana Cox LPN 12/30/2020 2:55 PM Signed LMTRC Diana Cox LPN Allergies As of Date: 12/30/2020 Noted Allergy Reaction LYRICA (PREGABALIN) 01/30/2013 9 - Itching Date Reviewed: 12/04/2020 Reviewed by: Diana Cox LPN - Fully Assessed Reason for Visit: Results [95] Prescriptions as of 12/30/2020 Sig: ASPIRIN 81 MG TABLET,DELAYED * Take 81 mg by mouth once renan* TICAGRELOR 90 MG TABLET Take 90 mg by mouth twice kim* CARVEDILOL 3.125 MG TABLET Take 3.125 mg by mouth twice * EMPAGLIFLOZIN 25 MG TABLET Take 25 mg by mouth daily wit* GLIMEPIRIDE 2 MG TABLET Take 2 mg by mouth daily with* BUPROPION XL 300 MG 24 HR TAB Take 300 mg by mouth once kim* DULOXETINE 30 MG CAPSULE,KANA* Take 30 mg by mouth once renan* Patient not taking: Reported on 12/04/2020 JANUVIA 100 MG TABLET Take 100 mg by mouth once kim* Patient not taking: Reported on 12/04/2020 TIZANIDINE 4 MG TABLET Take 4 mg by mouth every 6 ho* Patient not taking: Reported on 12/04/2020 FENOFIBRATE NANOCRYSTALLIZED * Take 145 mg by mouth once kim* Patient not taking: Reported on 12/04/2020 ATORVASTATIN 80 MG TABLET Take 80 mg by mouth once renan* ARIPIPRAZOLE 10 MG TABLET Take 10 mg by mouth once renan* INSULIN GLARGINE (U-100) 100 * Inject 55 Units subcutaneousl* Patient not taking: Reported on 12/04/2020 OXYCODONE ER 20 MG TABLET,EXT* Take 20 mg by mouth every 12 * Patient not taking: Reported on 12/04/2020 IBUPROFEN 800 MG TABLET Take 800 mg by mouth every 6 * Patient not taking: Reported on 12/04/2020 OMEGA-3 FATTY ACIDS-VITAMIN E* Take 1 capsule by mouth twice* Patient not taking: Reported on 12/04/2020 COENZYME Q10 100 MG CAPSULE Take 100 mg by mouth once kim* Patient not taking: Reported on 12/04/2020 CHOLECALCIFEROL (VITAMIN D3) * Take 1,000 Units by mouth onc* Patient not taking: Reported on 12/04/2020 METFORMIN 1,000 MG TABLET Take 1,000 mg by mouth twice * OMEPRAZOLE 20 MG CAPSULE,KANA* Take 20 mg by mouth once renan* LISINOPRIL 10 MG TABLET Take 10 mg by mouth once renan* TIAGABINE 4 MG TABLET Take one tablet in AM AND two t* HYDROMORPHONE 4 MG TABLET Take 4 mg by mouth every 6 ho* SERTRALINE 100 MG TABLET Take two tablets by mouth onc* DULOXETINE 60 MG CAPSULE,KANA* Take 120 mg by mouth once kim* Problem List As Of Date 12/30/2020 Noted Resolved Back pain [M54.9] 01/30/2013 Abdominal pain, other specified site [R10.9] 01/30/2013 Degeneration of lumbar or lumbosacral intervert*05/24/2014 Thoracic or lumbosacral neuritis or radiculitis*05/24/2014 Spinal stenosis in cervical region [M48.02] 08/16/2014 Cervical spondylosis without myelopathy [M47.81*08/16/2014 HTN (hypertension) [I10] 10/30/2014 Hyperlipidemia [E78.5] 10/30/2014 Atrial fibrillation (HCC) [I48.91] 10/30/2014 Obesity [E66.9] 10/30/2014 Depression [F32.9] 10/30/2014 AMITA (obstructive sleep apnea) [G47.33] 10/30/2014 Tobacco use [Z72.0] 10/30/2014 Diabetes mellitus type 2, controlled, without c*10/30/2014 GERD (gastroesophageal reflux disease) [K21.9] 10/30/2014 Polycythemia (HCC) [D75.1] 09/03/2015 Encounter Status:Closed by DIANA COX on 12/30/20 Normal [facility] KAM by IFAon 12-27-2020 KAM Pattern Negative Normal [facility] Comment on above: Performed By: #### F ERR, SMAB, AHCV1B, AHBSQ, VITD, CCP, IRON, XSSAB, AHBCOT, HBSAG, MEDICAL RADIATION DOSIMETRIST, RF, DNAAB, ANAIFS, CK ####[facility] [place], [place] [phone] KAM Titer Negative Normal Negative [facility] Comment on above: Result Comment: Norm al range : negative at <1:80 serum dilution. Performed By: #### F ERR, SMAB, AHCV1B, AHBSQ, VITD, CCP, IRON, XSSAB, AHBCOT, HBSAG, MEDICAL RADIATION DOSIMETRIST, RF, DNAAB, ANAIFS, CK ####[facility] [place], [place] [phone] Nuclear Ab IF (S) [Titer] Negative Normal Negative [facility] Comment on above: Result Comment: Norm al range : negative at <1:80 serum dilution. Approximately 6% of patients with connective tissue diseases with low positive EIA values are negative by IFA. Recommend follow-up with specific antinuclear antibodies if clinically indicated. Test performed using Indirect Fluorescence Immunoassay technology (IFA) using HEp-2 cells. Performed By: #### F ERR, SMAB, AHCV1B, AHBSQ, VITD, CCP, IRON, XSSAB, AHBCOT, HBSAG, MEDICAL RADIATION DOSIMETRIST, RF, DNAAB, ANAIFS, CK ####[address] [phone] CBC and Differentialon 12-27 Abs Baso 0.08 k/uL Normal <0.11 [facility] Comment on above: Performed By: #### F ERR, SMAB, AHCV1B, AHBSQ, VITD, CCP, IRON, XSSAB, AHBCOT, HBSAG, MEDICAL RADIATION DOSIMETRIST, RF, DNAAB, ANAIFS, CK #### [place] [address] Abs Gordon 0.74 k/uL Normal <0.87 [facility] Comment on above: Performed By: #### F ERR, SMAB, AHCV1B, AHBSQ, VITD, CCP, IRON, XSSAB, AHBCOT, HBSAG, MEDICAL RADIATION DOSIMETRIST, RF, DNAAB, ANAIFS, CK #### [place] [address] Abs Neut 9.86 k/uL High 1.45-7.50 [facility] Comment on above: Performed By: #### F ERR, SMAB, AHCV1B, AHBSQ, VITD, CCP, IRON, XSSAB, AHBCOT, HBSAG, MEDICAL RADIATION DOSIMETRIST, RF, DNAAB, ANAIFS, CK #### [place] [address] Absolute nRBC <0.01 Normal <0.01 [facility] Comment on above: Performed By: #### F ERR, SMAB, AHCV1B, AHBSQ, VITD, CCP, IRON, XSSAB, AHBCOT, HBSAG, MEDICAL RADIATION DOSIMETRIST, RF, DNAAB, ANAIFS, CK #### [place] [id number] Basophils/100 WBC (Bld) 0.6 % Normal [facility] Comment on above: Performed By: #### F ERR, SMAB, AHCV1B, AHBSQ, VITD, CCP, IRON, XSSAB, AHBCOT, HBSAG, MEDICAL RADIATION DOSIMETRIST, RF, DNAAB, ANAIFS, CK #### [place] [phone] DTYPE Auto Diff Normal [facility] Comment on above: Performed By: #### F ERR, SMAB, AHCV1B, AHBSQ, VITD, CCP, IRON, XSSAB, AHBCOT, HBSAG, MEDICAL RADIATION DOSIMETRIST, RF, DNAAB, ANAIFS, CK #### [place] [phone] Eosinophils (Bld) [#/Vol] 0.18 10*3/uL Normal <0.46 [facility] Comment on above: Performed By: #### F ERR, SMAB, AHCV1B, AHBSQ, VITD, CCP, IRON, XSSAB, AHBCOT, HBSAG, MEDICAL RADIATION DOSIMETRIST, RF, DNAAB, ANAIFS, CK #### [place] [phone] Eosinophils/100 WBC (Bld) 1.4 % Normal [facility] Comment on above: Performed By: #### F ERR, SMAB, AHCV1B, AHBSQ, VITD, CCP, IRON, XSSAB, AHBCOT, HBSAG, MEDICAL RADIATION DOSIMETRIST, RF, DNAAB, ANAIFS, CK #### [place] [phone] Erythrocyte distribution width (RBC) [Ratio] 13.4 % Normal 11.5-15.0 [facility] Comment on above: Performed By: #### F ERR, SMAB, AHCV1B, AHBSQ, VITD, CCP, IRON, XSSAB, AHBCOT, HBSAG, MEDICAL RADIATION DOSIMETRIST, RF, DNAAB, ANAIFS, CK #### [address] [place] [address] Hematocrit (Bld) [Volume fraction] 51.2 % High 39.0-51.0 [facility] Comment on above: Performed By: #### F ERR, SMAB, AHCV1B, AHBSQ, VITD, CCP, IRON, XSSAB, AHBCOT, HBSAG, MEDICAL RADIATION DOSIMETRIST, RF, DNAAB, ANAIFS, CK #### [place] [phone] Hemoglobin (Bld) [Mass/Vol] 17.1 g/dL High 13.0-17.0 [facility] Comment on above: Performed By: #### F ERR, SMAB, AHCV1B, AHBSQ, VITD, CCP, IRON, XSSAB, AHBCOT, HBSAG, MEDICAL RADIATION DOSIMETRIST, RF, DNAAB, ANAIFS, CK #### [place] [phone] Lymphocytes (Bld) [#/Vol] 1.97 10*3/uL Normal 1.00-4.00 [facility] Comment on above: Performed By: #### F ERR, SMAB, AHCV1B, AHBSQ, VITD, CCP, IRON, XSSAB, AHBCOT, HBSAG, MEDICAL RADIATION DOSIMETRIST, RF, DNAAB, ANAIFS, CK #### [place] [phone] Lymphocytes/100 WBC (Bld) 15.4 % Normal [facility] Comment on above: Performed By: #### F ERR, SMAB, AHCV1B, AHBSQ, VITD, CCP, IRON, XSSAB, AHBCOT, HBSAG, MEDICAL RADIATION DOSIMETRIST, RF, DNAAB, ANAIFS, CK #### [place] [phone] MCH 29.3 pG Normal 26.0-34.0 [facility] Comment on above: Performed By: #### F ERR, SMAB, AHCV1B, AHBSQ, VITD, CCP, IRON, XSSAB, AHBCOT, HBSAG, MEDICAL RADIATION DOSIMETRIST, RF, DNAAB, ANAIFS, CK #### [place] [address] MCHC (RBC) [Mass/Vol] 33.4 g/dL Normal 30.5-36.0 [facility] Comment on above: Performed By: #### F ERR, SMAB, AHCV1B, AHBSQ, VITD, CCP, IRON, XSSAB, AHBCOT, HBSAG, MEDICAL RADIATION DOSIMETRIST, RF, DNAAB, ANAIFS, CK #### [place] [address] MCV (RBC) [Entitic vol] 87.8 fL Normal 80.0-100.0 [facility] Comment on above: Performed By: #### F ERR, SMAB, AHCV1B, AHBSQ, VITD, CCP, IRON, XSSAB, AHBCOT, HBSAG, MEDICAL RADIATION DOSIMETRIST, RF, DNAAB, ANAIFS, CK #### [place] [phone] Monocytes/100 WBC (Bld) 5.8 % Normal [facility] Comment on above: Performed By: #### F ERR, SMAB, AHCV1B, AHBSQ, VITD, CCP, IRON, XSSAB, AHBCOT, HBSAG, MEDICAL RADIATION DOSIMETRIST, RF, DNAAB, ANAIFS, CK #### [place] [phone] Neutrophils/100 WBC (Bld) 76.8 % Normal [facility] Comment on above: Performed By: #### F ERR, SMAB, AHCV1B, AHBSQ, VITD, CCP, IRON, XSSAB, AHBCOT, HBSAG, MEDICAL RADIATION DOSIMETRIST, RF, DNAAB, ANAIFS, CK #### [place] [phone] NRBCs 0.0 /100 WBC Normal 0 [facility] Comment on above: Performed By: #### F ERR, SMAB, AHCV1B, AHBSQ, VITD, CCP, IRON, XSSAB, AHBCOT, HBSAG, MEDICAL RADIATION DOSIMETRIST, RF, DNAAB, ANAIFS, CK #### [place] [phone] [place] [address] Platelet mean volume (Bld) [Entitic vol] 11.1 fL Normal 9.0-12.7 [facility] Comment on above: Performed By: #### F ERR, SMAB, AHCV1B, AHBSQ, VITD, CCP, IRON, XSSAB, AHBCOT, HBSAG, MEDICAL RADIATION DOSIMETRIST, RF, DNAAB, ANAIFS, CK #### [place] [address] Platelets (Bld) [#/Vol] 183 10*3/uL Normal 150-400 [facility] Comment on above: Performed By: #### F ERR, SMAB, AHCV1B, AHBSQ, VITD, CCP, IRON, XSSAB, AHBCOT, HBSAG, MEDICAL RADIATION DOSIMETRIST, RF, DNAAB, ANAIFS, CK #### [place] [address] RBC (Bld) [#/Vol] 5.83 10*6/uL Normal 4.20-6.00 [facility] Comment on above: Performed By: #### F ERR, SMAB, AHCV1B, AHBSQ, VITD, CCP, IRON, XSSAB, AHBCOT, HBSAG, MEDICAL RADIATION DOSIMETRIST, RF, DNAAB, ANAIFS, CK #### [place] [address] WBC (Bld) [#/Vol] 12.83 10*3/uL High 3.70-11.00 [facility] Comment on above: Performed By: #### F ERR, SMAB, AHCV1B, AHBSQ, VITD, CCP, IRON, XSSAB, AHBCOT, HBSAG, MEDICAL RADIATION DOSIMETRIST, RF, DNAAB, ANAIFS, CK #### [facility] [address] [place], [place] [phone] CCP Antibody, IgGon 12-28-19 21 CCP Antibody, IgG <15 Normal <20 [facility] Comment on above: Result Comment: < 20 units: Negative 20-39 units: Weak Positive 40-59 units: Moderate Positive > 60 units: Strong Positive The following results were obtained with the [employer] QUANTA Lite CCP3 IgG HARMEET. Anti-CCP values obtained with different manufacturers' assay methods may not be used interchangeably. The magnitude of the reported IgG levels cannot be correlated to an endpoint titer. Performed By: #### F ERR, SMAB, AHCV1B, AHBSQ, VITD, CCP, IRON, XSSAB, AHBCOT, HBSAG, MEDICAL RADIATION DOSIMETRIST, RF, DNAAB, ANAIFS, CK ####[facility] [place], [place] [phone] CKon 12-27-2020 CK [Catalytic activity/Vol] 59 U/L Normal 51-298 [facility] Comment on above: Performed By: #### F ERR, SMAB, AHCV1B, AHBSQ, VITD, CCP, IRON, XSSAB, AHBCOT, HBSAG, MEDICAL RADIATION DOSIMETRIST, RF, DNAAB, ANAIFS, CK #### [facility] [address] [place], [place] [address] Comp Metabolic Panelon 12-27 Albumin [Mass/Vol] 4.6 g/dL Normal 3.9-4.9 [facility] Comment on above: Performed By: #### F ERR, SMAB, AHCV1B, AHBSQ, VITD, CCP, IRON, XSSAB, AHBCOT, HBSAG, MEDICAL RADIATION DOSIMETRIST, RF, DNAAB, ANAIFS, CK #### [facility] [address] [place], [place] [address] ALP [Catalytic activity/Vol] 93 U/L Normal 38-113 [facility] Comment on above: Performed By: #### F ERR, SMAB, AHCV1B, AHBSQ, VITD, CCP, IRON, XSSAB, AHBCOT, HBSAG, MEDICAL RADIATION DOSIMETRIST, RF, DNAAB, ANAIFS, CK #### [place] [phone] ALT [Catalytic activity/Vol] 40 U/L Normal 10-54 [facility] Comment on above: Performed By: #### F ERR, SMAB, AHCV1B, AHBSQ, VITD, CCP, IRON, XSSAB, AHBCOT, HBSAG, MEDICAL RADIATION DOSIMETRIST, RF, DNAAB, ANAIFS, CK #### [place] [address] Anion gap [Moles/Vol] 14 mmol/L Normal 9-18 [facility] Comment on above: Performed By: #### F ERR, SMAB, AHCV1B, AHBSQ, VITD, CCP, IRON, XSSAB, AHBCOT, HBSAG, MEDICAL RADIATION DOSIMETRIST, RF, DNAAB, ANAIFS, CK #### [place] [address] AST [Catalytic activity/Vol] 21 U/L Normal 14-40 [facility] Comment on above: Performed By: #### F ERR, SMAB, AHCV1B, AHBSQ, VITD, CCP, IRON, XSSAB, AHBCOT, HBSAG, MEDICAL RADIATION DOSIMETRIST, RF, DNAAB, ANAIFS, CK #### [place] [address] Bilirubin [Mass/Vol] 0.3 mg/dL Normal 0.2-1.3 [facility] Comment on above: Performed By: #### F ERR, SMAB, AHCV1B, AHBSQ, VITD, CCP, IRON, XSSAB, AHBCOT, HBSAG, MEDICAL RADIATION DOSIMETRIST, RF, DNAAB, ANAIFS, CK #### [place] [phone] Calcium [Mass/Vol] 10.6 mg/dL High 8.5-10.2 [facility] Comment on above: Performed By: #### F ERR, SMAB, AHCV1B, AHBSQ, VITD, CCP, IRON, XSSAB, AHBCOT, HBSAG, MEDICAL RADIATION DOSIMETRIST, RF, DNAAB, ANAIFS, CK #### [place] [address] Chloride [Moles/Vol] 100 mmol/L Normal 97-105 [facility] Comment on above: Performed By: #### F ERR, SMAB, AHCV1B, AHBSQ, VITD, CCP, IRON, XSSAB, AHBCOT, HBSAG, MEDICAL RADIATION DOSIMETRIST, RF, DNAAB, ANAIFS, CK #### [place] [phone] CO2 [Moles/Vol] 20 mmol/L Low 22-30 [facility] Comment on above: Performed By: #### F ERR, SMAB, AHCV1B, AHBSQ, VITD, CCP, IRON, XSSAB, AHBCOT, HBSAG, MEDICAL RADIATION DOSIMETRIST, RF, DNAAB, ANAIFS, CK #### [place] [address] Creatinine [Mass/Vol] 0.83 mg/dL Normal 0.73-1.22 [facility] Comment on above: Performed By: #### F ERR, SMAB, AHCV1B, AHBSQ, VITD, CCP, IRON, XSSAB, AHBCOT, HBSAG, MEDICAL RADIATION DOSIMETRIST, RF, DNAAB, ANAIFS, CK #### [place] [address] eGFR- Amer. >60 Normal [facility] Comment on above: Performed By: #### F ERR, SMAB, AHCV1B, AHBSQ, VITD, CCP, IRON, XSSAB, AHBCOT, HBSAG, MEDICAL RADIATION DOSIMETRIST, RF, DNAAB, ANAIFS, CK #### [place] [address] eGFR-All Other Races >60 Normal [facility] Comment on above: Result Comment: eGFR (Estimated GFR) Units of measure: mL/min/1.73 meters squared eGFR is derived from the reexpressed MDRD Study equation using the following parameters: serum creatinine, age, gender and race. The creatinine assay has been calibrated to be traceable to IDPA. An eGFR <60 mL/min/1.73m2 for >3 months is consistent with chronic kidney disease. Refer to KDOQI guidelines for clinical interpretation. In patients with unstable renal function, e.g. those with acute kidney injury, the eGFR may not accurately reflect actual GFR. Performed By: #### F ERR, SMAB, AHCV1B, AHBSQ, VITD, CCP, IRON, XSSAB, AHBCOT, HBSAG, MEDICAL RADIATION DOSIMETRIST, RF, DNAAB, ANAIFS, CK #### [facility] [address] [place], [place] [phone] Glucose [Mass/Vol] 434 mg/dL High 74-99 [facility] Comment on above: Result Comment: The [place] Diabetes Association (ADA) provides guidance for cutoff values for fasting glucose and random glucose. The ADA defines fasting as no caloric intake for at least 8 hours. Fasting plasma glucose results between 100 to 125 mg/dL indicate increased risk for diabetes (prediabetes). Fasting plasma glucose results greater than or equal to 126 mg/dL meet the criteria for diagnosis of diabetes. In the absence of unequivocal hyperglycemia, results should be confirmed by repeat testing. In a patient with classic symptoms of hyperglycemia or hyperglycemic crisis, random plasma glucose results greater than or equal to 200 mg/dL meet the criteria for diagnosis of diabetes. Reference: Standards of Medical Care in Diabetes 2016, [place] [employer] Association. Diabetes Care. 2016.39(Suppl 1). Performed By: #### F ERR, SMAB, AHCV1B, AHBSQ, VITD, CCP, IRON, XSSAB, AHBCOT, HBSAG, MEDICAL RADIATION DOSIMETRIST, RF, DNAAB, ANAIFS, CK #### [facility] [address] [place], [place] [address] Potassium [Moles/Vol] 4.5 mmol/L Normal 3.7-5.1 [facility] Comment on above: Performed By: #### F ERR, SMAB, AHCV1B, AHBSQ, VITD, CCP, IRON, XSSAB, AHBCOT, HBSAG, MEDICAL RADIATION DOSIMETRIST, RF, DNAAB, ANAIFS, CK #### [place] [address] [place], [place] [address] Protein [Mass/Vol] 7.3 g/dL Normal 6.3-8.0 [facility] Comment on above: Performed By: #### F ERR, SMAB, AHCV1B, AHBSQ, VITD, CCP, IRON, XSSAB, AHBCOT, HBSAG, MEDICAL RADIATION DOSIMETRIST, RF, DNAAB, ANAIFS, CK #### [place] [address] [place], [place] [address] Sodium [Moles/Vol] 134 mmol/L Low 136-144 [facility] Comment on above: Performed By: #### F ERR, SMAB, AHCV1B, AHBSQ, VITD, CCP, IRON, XSSAB, AHBCOT, HBSAG, MEDICAL RADIATION DOSIMETRIST, RF, DNAAB, ANAIFS, CK #### [place] [address] [place], [place] [address] Urea nitrogen [Mass/Vol] 17 mg/dL Normal 9-24 [facility] Comment on above: Performed By: #### F ERR, SMAB, AHCV1B, AHBSQ, VITD, CCP, IRON, XSSAB, AHBCOT, HBSAG, MEDICAL RADIATION DOSIMETRIST, RF, DNAAB, ANAIFS, CK #### [place] [address] [place], [place] [address] Creatinine,Urine,Ranon 12-27 Creatinine,Urine,Ran 29.3 mg/dL Normal 20-300 [facility] Comment on above: Performed By: #### U CRR, UTPR, UACII ####[facility] [place], [place] [phone] DNA Antibodyon 12-27-2020 DNA Antibody <12 Normal <30 [facility] Comment on above: Result Comment: Nega tive for ds DNA Antibodies Negative: <30 IU/mL Equivocal: 30-74 IU/mL Positive: >74 IU/mL Performed By: #### F ERR, SMAB, AHCV1B, AHBSQ, VITD, CCP, IRON, XSSAB, AHBCOT, HBSAG, MEDICAL RADIATION DOSIMETRIST, RF, DNAAB, ANAIFS, CK ####[address] [phone] Ferritinon 12-27-2020 Ferritin [Mass/Vol] 244.0 ng/mL Normal 30.3-565.7 [facility] Comment on above: Performed By: #### F ERR, SMAB, AHCV1B, AHBSQ, VITD, CCP, IRON, XSSAB, AHBCOT, HBSAG, MEDICAL RADIATION DOSIMETRIST, RF, DNAAB, ANAIFS, CK ####[address] [phone] Hep B Core Ab,Totalon 2020 Hep B Core Ab,Total Negative Normal Negative [facility] Comment on above: Performed By: #### F ERR, SMAB, AHCV1B, AHBSQ, VITD, CCP, IRON, XSSAB, AHBCOT, HBSAG, MEDICAL RADIATION DOSIMETRIST, RF, DNAAB, ANAIFS, CK ####[address] [phone] Hep C Ab IA w/Confon 021 Hepatitis C Ab IA Negative Normal Negative [facility] Comment on above: Performed By: #### F ERR, SMAB, AHCV1B, AHBSQ, VITD, CCP, IRON, XSSAB, AHBCOT, HBSAG, MEDICAL RADIATION DOSIMETRIST, RF, DNAAB, ANAIFS, CK ####[address] [phone] HepB SurfaceAb,Quanton 12-27 HepB SurfaceAb,Quant <8.00 Normal <8.00 [facility] Comment on above: Result Comment: NEGA TIVE Performed By: #### F ERR, SMAB, AHCV1B, AHBSQ, VITD, CCP, IRON, XSSAB, AHBCOT, HBSAG, MEDICAL RADIATION DOSIMETRIST, RF, DNAAB, ANAIFS, CK ####[address] [phone] Hepatitis B Surf. Agon 12-27 Hepatitis B Surf. Ag Negative Normal Negative [facility] Comment on above: Performed By: #### F ERR, SMAB, AHCV1B, AHBSQ, VITD, CCP, IRON, XSSAB, AHBCOT, HBSAG, MEDICAL RADIATION DOSIMETRIST, RF, DNAAB, ANAIFS, CK ####[address] [phone] Iron and TIBCon 12-27-2020 Iron [Mass/Vol] 91 ug/dL Normal 41-186 [facility] Comment on above: Performed By: #### F ERR, SMAB, AHCV1B, AHBSQ, VITD, CCP, IRON, XSSAB, AHBCOT, HBSAG, MEDICAL RADIATION DOSIMETRIST, RF, DNAAB, ANAIFS, CK ####[address] [phone] TIBC 352 ug/dL Normal 232-386 [facility] Comment on above: Performed By: #### F ERR, SMAB, AHCV1B, AHBSQ, VITD, CCP, IRON, XSSAB, AHBCOT, HBSAG, MEDICAL RADIATION DOSIMETRIST, RF, DNAAB, ANAIFS, CK ####[address] [phone] Transferrin Saturatn 26 % Normal 15-57 [facility] Comment on above: Performed By: #### F ERR, SMAB, AHCV1B, AHBSQ, VITD, CCP, IRON, XSSAB, AHBCOT, HBSAG, MEDICAL RADIATION DOSIMETRIST, RF, DNAAB, ANAIFS, CK ####[address] [phone] MRI PELVIS ORTHO GEN WO IVCO Non 12-27-2020 MRI PELVIS ORTHO GEN WO IVCON * * *Final Report* * * DATE OF EXAM: Dec 27 2020 3:46PM BARTOLO 0229 - MRI PELVIS ORTHO GEN WO IVCON / PROCEDURE REASON: multiple diagnoses * * * * Physician Interpretation * * * * MRI PELVIS ORTHO GEN WO IVCON HISTORY: Dorsalgia Unspecified inflammatory spondylopathy, sacral and sacrococcygeal region (HCC) Pain in joint, multiple sites . COMPARISON: Radiographs performed same day TECHNIQUE: Multiplanar PD, T1 and T2 weighted images. RESULT: Bones: There is no fracture or bone marrow replacing process. Joints: No joint effusion or synovitis. No evidence of chondral defect. Tendons: Within normal limits. Muscles: Mild to moderate fatty changes involving the paraspinal muscles. Otherwise, normal in bulk and signal. Fat planes: There is Within normal limits. Other: The lumbosacral plexus and the bilateral sciatic nerves have normal appearance. There is no free fluid in the pelvis. Localizer image: No additional findings. IMPRESSION: NORMAL STUDY WITH NO EVIDENCE OF SACROILIITIS. Turret Press Operator: [facility] Transcribe Date/Time: Dec 27 2020 10:33P Dictated by : JAMES VARGAS MD This examination was interpreted and the report reviewed and electronically signed by: JAMES VARGAS MD on Dec 28 2020 6:44AM EST [id number] Normal [facility] Protein Urine Randomon 12-27 Protein (U) [Mass/Vol] 5 mg/dL Normal 0-20 [facility] Comment on above: Performed By: #### U CRR, UTPR, UACII ####[facility] [place], [place] [phone] MACHINE OPERATOR HOP PICKER Antibodyon 12-27-2020 MACHINE OPERATOR HOP PICKER Antibody <0.2 Normal <1.0 [facility] Comment on above: Result Comment: NEGA TIVE Negative: <1.0 AI Positive: >0.9 AI Test performed using the Multiplex Flow Immunoassay technology. Performed By: #### F ERR, SMAB, AHCV1B, AHBSQ, VITD, CCP, IRON, XSSAB, AHBCOT, HBSAG, MEDICAL RADIATION DOSIMETRIST, RF, DNAAB, ANAIFS, CK ####[place] [address] [place], [place] [phone] Rheumatoid Factoron 12-28-19 21 Rheumatoid Factor <10 Normal <16 [facility] Comment on above: Performed By: #### F ERR, SMAB, AHCV1B, AHBSQ, VITD, CCP, IRON, XSSAB, AHBCOT, HBSAG, MEDICAL RADIATION DOSIMETRIST, RF, DNAAB, ANAIFS, CK ####[address] [phone] Sjogren Abs SSA/SSB For Ref Lab Use Onlyon 12-27-2020 SSA Antibody <0.2 Normal <1.0 [facility] Comment on above: Result Comment: NEGA TIVE Negative: <1.0 AI Positive: >0.9 AI Test performed using the Multiplex Flow Immunoassay technology. Performed By: #### F ERR, SMAB, AHCV1B, AHBSQ, VITD, CCP, IRON, XSSAB, AHBCOT, HBSAG, MEDICAL RADIATION DOSIMETRIST, RF, DNAAB, ANAIFS, CK ####[address] [phone] SSB Antibody <0.2 Normal <1.0 [facility] Comment on above: Result Comment: NEGA TIVE Negative: <1.0 AI Positive: >0.9 AI Test performed using the Multiplex Flow Immunoassay technology. Performed By: #### F ERR, SMAB, AHCV1B, AHBSQ, VITD, CCP, IRON, XSSAB, AHBCOT, HBSAG, MEDICAL RADIATION DOSIMETRIST, RF, DNAAB, ANAIFS, CK ####[place] [address], [place] [phone] Sm Antibodyon 12-27-2020 Sm Antibody <0.2 Normal <1.0 [facility] Comment on above: Result Comment: NEGA TIVE Negative: <1.0 AI Positive: >0.9 AI Test performed using the Multiplex Flow Immunoassay technology. Performed By: #### F ERR, SMAB, AHCV1B, AHBSQ, VITD, CCP, IRON, XSSAB, AHBCOT, HBSAG, MEDICAL RADIATION DOSIMETRIST, RF, DNAAB, ANAIFS, CK ####[place] [address] [place] [phone] TB by QuantiFERON *OUTSIDE U SE ONLY*on 12-27-2020 Interpretation No evidence of curre nt or previous infection with Mycobacterium tuberculosis. Normal [facility] Comment on above: Performed By: #### I NTPGP #### [place] [address] [place] [phone] Mitogen minus Nil >10 Normal [facility] Comment on above: Performed By: #### I NTPGP #### [place] [phone] TB NIL 0.05 IU/mL Normal [facility] Comment on above: Performed By: #### I NTPGP #### [place] [phone] TB Result Negative Normal Negative [facility] Comment on above: Performed By: #### I NTPGP #### [place] [phone] TB1 Ag minus Nil 0.00 IU/mL Normal <0.35 [facility] Comment on above: Performed By: #### I NTPGP #### [address] TB2 Ag minus Nil 0.00 IU/mL Normal <0.35 [facility] Comment on above: Performed By: #### I NTPGP #### [place] [address] [place] [phone] UA w/Cult if Indicatedon Bilirubin, Urine Negative Normal Negative [facility] Comment on above: Performed By: #### U CRR, UTPR, UACII ####[address], [place] [phone] Clarity (U) Clear Normal Clear [facility] Comment on above: Performed By: #### U CRR, UTPR, UACII ####[address] [place] [phone] Color (U) Straw Critically abnormal Yellow [facility] Comment on above: Performed By: #### U CRR, UTPR, UACII ####[address] [place] [phone] Comments SEE COMMENT Normal [facility] Comment on above: Result Comment: Micr oscopic Examination Performed Performed By: #### U CRR, UTPR, UACII ####[place] [phone] Glucose Ql (U) 3+ mg/dL Critically abnormal Negative [facility] Comment on above: Performed By: #### U CRR, UTPR, UACII ####[place] [phone] Hemoglobin/Blood,Ur Negative Normal Negative [facility] Comment on above: Performed By: #### U CRR, UTPR, UACII ####[place] [phone] Ketones Ql (U) Negative Normal Negative [facility] Comment on above: Performed By: #### U CRR, UTPR, UACII ####[place] [address] [address] [place] [phone] Leukest Negative Normal Negative [facility] Comment on above: Performed By: #### U CRR, UTPR, UACII ####[place] [address] [address] [place] [phone] Nitrite Ql (U) Negative Normal Negative [facility] Comment on above: Performed By: #### U CRR, UTPR, UACII ####[place] [address] [address] [place], [place] [phone] pH (U) 6.0 [pH] Normal 5.0-8.0 [facility] Comment on above: Performed By: #### U CRR, UTPR, UACII ####[facility] [place], [place] [phone] Protein, Urine Negative Normal Negative [facility] Comment on above: Performed By: #### U CRR, UTPR, UACII ####[facility] [address] [place], [place] [phone] RBC 0-3 Normal 0-3 [facility] Comment on above: Performed By: #### U CRR, UTPR, UACII ####[address] [place] [phone] Specific [place], Ur 1.032 High 1.005-1.030 [facility] Comment on above: Performed By: #### U CRR, UTPR, UACII ####[place] [address] [address] [place] [phone] Urine Abhi Comment SEE COMMENT Normal [facility] Comment on above: Result Comment: N/A Performed By: #### U CRR, UTPR, UACII ####[place] [address] [address], [place] [phone] Urobilinogen (U) [Mass/Vol] Negative Normal Negative [facility] Comment on above: Performed By: #### U CRR, UTPR, UACII ####[facility] [place] [phone] WBC 0-5 Normal 0-5 [facility] Comment on above: Performed By: #### U CRR, UTPR, UACII ####[place] [address] [address] [place], [place] [phone] Vitamin D 25 Hydroxyon 12-27 Vitamin D 25 Hydroxy 21.2 ng/mL Low 31.0-80.0 [facility] Comment on above: Result Comment: Clas sification of 25 [place] Vitamin D status: Insufficiency/Moderate Deficiency: < or = 30 ng/mL Sufficiency/Optimal Levels: 31 to 80 ng/mL Toxicity: > 100 ng/mL Test performed by chemiluminescent immunoassay. Performed By: #### F ERR, SMAB, AHCV1B, AHBSQ, VITD, CCP, IRON, XSSAB, AHBCOT, HBSAG, MEDICAL RADIATION DOSIMETRIST, RF, DNAAB, ANAIFS, CK ####[facility] [address] [place], [place] [phone] XR FOOT 3V AP/LAT/OBL LTon 0 12-27-2020 XR FOOT 3V AP/LAT/OBL LT * * *Final Report* * * DATE OF EXAM: Dec 27 2020 4:20PM WRX [id number] - XR FOOT 3V AP/LAT/OBL LT / PROCEDURE REASON: multiple diagnoses * * * * Physician Interpretation * * * * Lumbar spine, bilateral knees, bilateral hands, bilateral feet, and SI joint radiographs HISTORY: 50 years old Clinical information: Dorsalgia Unspecified inflammatory spondylopathy, sacral and sacrococcygeal region (HCC) Pain in joint, multiple sites chronic low back pain (accession [id number]), chronic low back pain (accession [id number]), chronic low back pain (accession [id number]), chronic pain (accession [id number]), chronic pain (accession [id number]), chronic pain (accession [id number]), chronic pain (accession [id number]) TECHNIQUE: Images: XR LUMBAR 2V AP/LAT, XR SI JTS 2V AP PELV/PORTER, XR KNEE SURVEY 1V AP HAYDEN, XR FOOT 3V AP/LAT/OBL LT, XR FOOT 3V AP/LAT/OBL RT, XR HAND 3V PA/LAT/OBL LT, XR HAND 3V PA/LAT/OBL RT Comparison: None. Lumbar spine RESULT: For the purposes of this dictation the iliac crests are at the L4-5 level. Narrowing of the L4-5 intervertebral disc space. Mild endplate osteophyte formation at multiple levels in the lumbar spine. No fracture. SI joints RESULT: SI joints are intact. No fracture or dislocation. No erosions are seen. Narrowing of superolateral right hip joint space. Osteophyte formation on the right acetabulum. Superior left hip joint space is maintained. Osteophyte and degenerative cyst formation involving the left superior acetabulum. Remainder of the imaged bony pelvis appears to be intact. Pubic symphysis is intact. Left hand RESULT: No fracture or dislocation. Small osteophytes adjacent to the third metacarpal phalangeal joint. No erosions are seen. No chondrocalcinosis. Positive ulnar variance. Right hand RESULT: Small osteophytes adjacent to multiple distal interphalangeal joints. Osteophytes subjacent to the second and third metacarpophalangeal joint. No fracture or dislocation. No erosions are seen. No chondrocalcinosis. Calcification adjacent to the ulnar styloid process likely sequelae of prior trauma. Left foot RESULT: Joint spaces are maintained. No fracture or dislocation. Enthesophyte at the Achilles insertion site on the calcaneus. No soft tissue abnormality identified. Right foot RESULT: Joint spaces are maintained. No fracture or dislocation. No soft tissue abnormality identified. Left knee RESULT: Single view of the left knee shows narrowing of the medial and lateral compartment joint spaces. Marginal osteophytes extending off tibial plateaus and femoral condyles. No fracture or dislocation. Right knee RESULT: Single view of the right knee shows narrowing of medial and lateral compartment joint spaces. Marginal osteophyte extending off the lateral tibial plateau. No fracture or dislocation. IMPRESSION: Osteoarthrosis. No evidence of an inflammatory arthropathy. Turret Press Operator: [facility] Transcribe Date/Time: Dec 27 2020 4:22P Dictated by : SHEA ARMAS MD This examination was interpreted and the report reviewed and electronically signed by: SHEA ARMAS MD on Dec 27 2020 4:29PM EST [id number] Normal [facility] XR FOOT 3V AP/LAT/OBL RTon 0 12-27-2020 XR FOOT 3V AP/LAT/OBL RT * * *Final Report* * * DATE OF EXAM: Dec 27 2020 4:20PM [id number] - XR FOOT 3V AP/LAT/OBL RT / PROCEDURE REASON: multiple diagnoses * * * * Physician Interpretation * * * * Lumbar spine, bilateral knees, bilateral hands, bilateral feet, and SI joint radiographs HISTORY: 50 years old Clinical information: Dorsalgia Unspecified inflammatory spondylopathy, sacral and sacrococcygeal region (HCC) Pain in joint, multiple sites chronic low back pain (accession [id number]), chronic low back pain (accession [id number]), chronic low back pain (accession [id number]), chronic pain (accession [id number]), chronic pain (accession [id number]), chronic pain (accession [id number]), chronic pain (accession [id number]) TECHNIQUE: Images: XR LUMBAR 2V AP/LAT, XR SI JTS 2V AP PELV/PORTER, XR KNEE SURVEY 1V AP HAYDEN, XR FOOT 3V AP/LAT/OBL LT, XR FOOT 3V AP/LAT/OBL RT, XR HAND 3V PA/LAT/OBL LT, XR HAND 3V PA/LAT/OBL RT Comparison: None. Lumbar spine RESULT: For the purposes of this dictation the iliac crests are at the L4-5 level. Narrowing of the L4-5 intervertebral disc space. Mild endplate osteophyte formation at multiple levels in the lumbar spine. No fracture. SI joints RESULT: SI joints are intact. No fracture or dislocation. No erosions are seen. Narrowing of superolateral right hip joint space. Osteophyte formation on the right acetabulum. Superior left hip joint space is maintained. Osteophyte and degenerative cyst formation involving the left superior acetabulum. Remainder of the imaged bony pelvis appears to be intact. Pubic symphysis is intact. Left hand RESULT: No fracture or dislocation. Small osteophytes adjacent to the third metacarpal phalangeal joint. No erosions are seen. No chondrocalcinosis. Positive ulnar variance. Right hand RESULT: Small osteophytes adjacent to multiple distal interphalangeal joints. Osteophytes subjacent to the second and third metacarpophalangeal joint. No fracture or dislocation. No erosions are seen. No chondrocalcinosis. Calcification adjacent to the ulnar styloid process likely sequelae of prior trauma. Left foot RESULT: Joint spaces are maintained. No fracture or dislocation. Enthesophyte at the Achilles insertion site on the calcaneus. No soft tissue abnormality identified. Right foot RESULT: Joint spaces are maintained. No fracture or dislocation. No soft tissue abnormality identified. Left knee RESULT: Single view of the left knee shows narrowing of the medial and lateral compartment joint spaces. Marginal osteophytes extending off tibial plateaus and femoral condyles. No fracture or dislocation. Right knee RESULT: Single view of the right knee shows narrowing of medial and lateral compartment joint spaces. Marginal osteophyte extending off the lateral tibial plateau. No fracture or dislocation. IMPRESSION: Osteoarthrosis. No evidence of an inflammatory arthropathy. Turret Press Operator: PSCWander Transcribe Date/Time: Dec 27 2020 4:22P Dictated by : SHEA ARMAS MD This examination was interpreted and the report reviewed and electronically signed by: SHEA ARMAS MD on Dec 27 2020 4:29PM EST [id number] Normal [facility] XR HAND 3V PA/LAT/OBL LTon 0 12-27-2020 XR HAND 3V PA/LAT/OBL LT * * *Final Report* * * DATE OF EXAM: Dec 27 2020 4:19PM [id number] - XR HAND 3V PA/LAT/OBL LT / PROCEDURE REASON: multiple diagnoses * * * * Physician Interpretation * * * * Lumbar spine, bilateral knees, bilateral hands, bilateral feet, and SI joint radiographs HISTORY: 50 years old Clinical information: Dorsalgia Unspecified inflammatory spondylopathy, sacral and sacrococcygeal region (HCC) Pain in joint, multiple sites chronic low back pain (accession [id number]), chronic low back pain (accession [id number]), chronic low back pain (accession [id number]), chronic pain (accession [id number]), chronic pain (accession [id number]), chronic pain (accession [id number]), chronic pain (accession [id number]) TECHNIQUE: Images: XR LUMBAR 2V AP/LAT, XR SI JTS 2V AP PELV/PORTER, XR KNEE SURVEY 1V AP HAYDEN, XR FOOT 3V AP/LAT/OBL LT, XR FOOT 3V AP/LAT/OBL RT, XR HAND 3V PA/LAT/OBL LT, XR HAND 3V PA/LAT/OBL RT Comparison: None. Lumbar spine RESULT: For the purposes of this dictation the iliac crests are at the L4-5 level. Narrowing of the L4-5 intervertebral disc space. Mild endplate osteophyte formation at multiple levels in the lumbar spine. No fracture. SI joints RESULT: SI joints are intact. No fracture or dislocation. No erosions are seen. Narrowing of superolateral right hip joint space. Osteophyte formation on the right acetabulum. Superior left hip joint space is maintained. Osteophyte and degenerative cyst formation involving the left superior acetabulum. Remainder of the imaged bony pelvis appears to be intact. Pubic symphysis is intact. Left hand RESULT: No fracture or dislocation. Small osteophytes adjacent to the third metacarpal phalangeal joint. No erosions are seen. No chondrocalcinosis. Positive ulnar variance. Right hand RESULT: Small osteophytes adjacent to multiple distal interphalangeal joints. Osteophytes subjacent to the second and third metacarpophalangeal joint. No fracture or dislocation. No erosions are seen. No chondrocalcinosis. Calcification adjacent to the ulnar styloid process likely sequelae of prior trauma. Left foot RESULT: Joint spaces are maintained. No fracture or dislocation. Enthesophyte at the Achilles insertion site on the calcaneus. No soft tissue abnormality identified. Right foot RESULT: Joint spaces are maintained. No fracture or dislocation. No soft tissue abnormality identified. Left knee RESULT: Single view of the left knee shows narrowing of the medial and lateral compartment joint spaces. Marginal osteophytes extending off tibial plateaus and femoral condyles. No fracture or dislocation. Right knee RESULT: Single view of the right knee shows narrowing of medial and lateral compartment joint spaces. Marginal osteophyte extending off the lateral tibial plateau. No fracture or dislocation. IMPRESSION: Osteoarthrosis. No evidence of an inflammatory arthropathy. Turret Press Operator: [facility] CENTERWander Transcribe Date/Time: Dec 27 2020 4:22P Dictated by : SHEA ARMAS MD This examination was interpreted and the report reviewed and electronically signed by: SHEA ARMAS MD on Dec 27 2020 4:29PM EST [id number] Normal [facility] XR HAND 3V PA/LAT/OBL RTon 0 12-27-2020 XR HAND 3V PA/LAT/OBL RT * * *Final Report* * * DATE OF EXAM: Dec 27 2020 4:19PM [id number] - XR HAND 3V PA/LAT/OBL RT / PROCEDURE REASON: multiple diagnoses * * * * Physician Interpretation * * * * Lumbar spine, bilateral knees, bilateral hands, bilateral feet, and SI joint radiographs HISTORY: 50 years old Clinical information: Dorsalgia Unspecified inflammatory spondylopathy, sacral and sacrococcygeal region (HCC) Pain in joint, multiple sites chronic low back pain (accession [id number]), chronic low back pain (accession [id number]), chronic low back pain (accession [id number]), chronic pain (accession [id number]), chronic pain (accession [id number]), chronic pain (accession [id number]), chronic pain (accession [id number]) TECHNIQUE: Images: XR LUMBAR 2V AP/LAT, XR SI JTS 2V AP PELV/PORTER, XR KNEE SURVEY 1V AP HAYDEN, XR FOOT 3V AP/LAT/OBL LT, XR FOOT 3V AP/LAT/OBL RT, XR HAND 3V PA/LAT/OBL LT, XR HAND 3V PA/LAT/OBL RT Comparison: None. Lumbar spine RESULT: For the purposes of this dictation the iliac crests are at the L4-5 level. Narrowing of the L4-5 intervertebral disc space. Mild endplate osteophyte formation at multiple levels in the lumbar spine. No fracture. SI joints RESULT: SI joints are intact. No fracture or dislocation. No erosions are seen. Narrowing of superolateral right hip joint space. Osteophyte formation on the right acetabulum. Superior left hip joint space is maintained. Osteophyte and degenerative cyst formation involving the left superior acetabulum. Remainder of the imaged bony pelvis appears to be intact. Pubic symphysis is intact. Left hand RESULT: No fracture or dislocation. Small osteophytes adjacent to the third metacarpal phalangeal joint. No erosions are seen. No chondrocalcinosis. Positive ulnar variance. Right hand RESULT: Small osteophytes adjacent to multiple distal interphalangeal joints. Osteophytes subjacent to the second and third metacarpophalangeal joint. No fracture or dislocation. No erosions are seen. No chondrocalcinosis. Calcification adjacent to the ulnar styloid process likely sequelae of prior trauma. Left foot RESULT: Joint spaces are maintained. No fracture or dislocation. Enthesophyte at the Achilles insertion site on the calcaneus. No soft tissue abnormality identified. Right foot RESULT: Joint spaces are maintained. No fracture or dislocation. No soft tissue abnormality identified. Left knee RESULT: Single view of the left knee shows narrowing of the medial and lateral compartment joint spaces. Marginal osteophytes extending off tibial plateaus and femoral condyles. No fracture or dislocation. Right knee RESULT: Single view of the right knee shows narrowing of medial and lateral compartment joint spaces. Marginal osteophyte extending off the lateral tibial plateau. No fracture or dislocation. IMPRESSION: Osteoarthrosis. No evidence of an inflammatory arthropathy. Turret Press Operator: BEVERLEY Transcribe Date/Time: Dec 27 2020 4:22P Dictated by : SHEA ARMAS MD This examination was interpreted and the report reviewed and electronically signed by: SHEA ARMAS MD on Dec 27 2020 4:29PM EST [id number] Normal [facility] XR KNEE SURVEY 1V AP BILon 0 12-27-2020 XR KNEE SURVEY 1V AP HAYDEN * * *Final Report* * * DATE OF EXAM: Dec 27 2020 4:21PM [id number] - XR KNEE SURVEY 1V AP HAYDEN / PROCEDURE REASON: multiple diagnoses * * * * Physician Interpretation * * * * Lumbar spine, bilateral knees, bilateral hands, bilateral feet, and SI joint radiographs HISTORY: 50 years old Clinical information: Dorsalgia Unspecified inflammatory spondylopathy, sacral and sacrococcygeal region (HCC) Pain in joint, multiple sites chronic low back pain (accession [id number]), chronic low back pain (accession [id number]), chronic low back pain (accession [id number]), chronic pain (accession [id number]), chronic pain (accession [id number]), chronic pain (accession [id number]), chronic pain (accession [id number]) TECHNIQUE: Images: XR LUMBAR 2V AP/LAT, XR SI JTS 2V AP PELV/PORTER, XR KNEE SURVEY 1V AP HAYDEN, XR FOOT 3V AP/LAT/OBL LT, XR FOOT 3V AP/LAT/OBL RT, XR HAND 3V PA/LAT/OBL LT, XR HAND 3V PA/LAT/OBL RT Comparison: None. Lumbar spine RESULT: For the purposes of this dictation the iliac crests are at the L4-5 level. Narrowing of the L4-5 intervertebral disc space. Mild endplate osteophyte formation at multiple levels in the lumbar spine. No fracture. SI joints RESULT: SI joints are intact. No fracture or dislocation. No erosions are seen. Narrowing of superolateral right hip joint space. Osteophyte formation on the right acetabulum. Superior left hip joint space is maintained. Osteophyte and degenerative cyst formation involving the left superior acetabulum. Remainder of the imaged bony pelvis appears to be intact. Pubic symphysis is intact. Left hand RESULT: No fracture or dislocation. Small osteophytes adjacent to the third metacarpal phalangeal joint. No erosions are seen. No chondrocalcinosis. Positive ulnar variance. Right hand RESULT: Small osteophytes adjacent to multiple distal interphalangeal joints. Osteophytes subjacent to the second and third metacarpophalangeal joint. No fracture or dislocation. No erosions are seen. No chondrocalcinosis. Calcification adjacent to the ulnar styloid process likely sequelae of prior trauma. Left foot RESULT: Joint spaces are maintained. No fracture or dislocation. Enthesophyte at the Achilles insertion site on the calcaneus. No soft tissue abnormality identified. Right foot RESULT: Joint spaces are maintained. No fracture or dislocation. No soft tissue abnormality identified. Left knee RESULT: Single view of the left knee shows narrowing of the medial and lateral compartment joint spaces. Marginal osteophytes extending off tibial plateaus and femoral condyles. No fracture or dislocation. Right knee RESULT: Single view of the right knee shows narrowing of medial and lateral compartment joint spaces. Marginal osteophyte extending off the lateral tibial plateau. No fracture or dislocation. IMPRESSION: Osteoarthrosis. No evidence of an inflammatory arthropathy. Turret Press Operator: BEVERLEY Transcribe Date/Time: Dec 27 2020 4:22P Dictated by : SHEA ARMAS MD This examination was interpreted and the report reviewed and electronically signed by: SHEA ARMAS MD on Dec 27 2020 4:29PM EST [id number] Normal [facility] XR LUMBAR 2V AP/LATon 2020 XR LUMBAR 2V AP/LAT * * *Final Report* * * DATE OF EXAM: Dec 27 2020 4:18PM [id number] [id number] - XR LUMBAR 2V AP/LAT / PROCEDURE REASON: multiple diagnoses * * * * Physician Interpretation * * * * Lumbar spine, bilateral knees, bilateral hands, bilateral feet, and SI joint radiographs HISTORY: 50 years old Clinical information: Dorsalgia Unspecified inflammatory spondylopathy, sacral and sacrococcygeal region (HCC) Pain in joint, multiple sites chronic low back pain (accession [id number]), chronic low back pain (accession [id number]), chronic low back pain (accession [id number]), chronic pain (accession [id number]), chronic pain (accession [id number]), chronic pain (accession [id number]), chronic pain (accession [id number]) TECHNIQUE: Images: XR LUMBAR 2V AP/LAT, XR SI JTS 2V AP PELV/PORTER, XR KNEE SURVEY 1V AP HAYDEN, XR FOOT 3V AP/LAT/OBL LT, XR FOOT 3V AP/LAT/OBL RT, XR HAND 3V PA/LAT/OBL LT, XR HAND 3V PA/LAT/OBL RT Comparison: None. Lumbar spine RESULT: For the purposes of this dictation the iliac crests are at the L4-5 level. Narrowing of the L4-5 intervertebral disc space. Mild endplate osteophyte formation at multiple levels in the lumbar spine. No fracture. SI joints RESULT: SI joints are intact. No fracture or dislocation. No erosions are seen. Narrowing of superolateral right hip joint space. Osteophyte formation on the right acetabulum. Superior left hip joint space is maintained. Osteophyte and degenerative cyst formation involving the left superior acetabulum. Remainder of the imaged bony pelvis appears to be intact. Pubic symphysis is intact. Left hand RESULT: No fracture or dislocation. Small osteophytes adjacent to the third metacarpal phalangeal joint. No erosions are seen. No chondrocalcinosis. Positive ulnar variance. Right hand RESULT: Small osteophytes adjacent to multiple distal interphalangeal joints. Osteophytes subjacent to the second and third metacarpophalangeal joint. No fracture or dislocation. No erosions are seen. No chondrocalcinosis. Calcification adjacent to the ulnar styloid process likely sequelae of prior trauma. Left foot RESULT: Joint spaces are maintained. No fracture or dislocation. Enthesophyte at the Achilles insertion site on the calcaneus. No soft tissue abnormality identified. Right foot RESULT: Joint spaces are maintained. No fracture or dislocation. No soft tissue abnormality identified. Left knee RESULT: Single view of the left knee shows narrowing of the medial and lateral compartment joint spaces. Marginal osteophytes extending off tibial plateaus and femoral condyles. No fracture or dislocation. Right knee RESULT: Single view of the right knee shows narrowing of medial and lateral compartment joint spaces. Marginal osteophyte extending off the lateral tibial plateau. No fracture or dislocation. IMPRESSION: Osteoarthrosis. No evidence of an inflammatory arthropathy. Turret Press Operator: BEVERLEY Transcribe Date/Time: Dec 27 2020 4:22P Dictated by : SHEA ARMAS MD This examination was interpreted and the report reviewed and electronically signed by: SHEA ARMAS MD on Dec 27 2020 4:29PM EST [id number] Normal [facility] XR SI JTS 2V AP PELV/FERGUSO Non 12-27-2020 XR SI JTS 2V AP PELV/PORTER * * *Final Report* * * DATE OF EXAM: Dec 27 2020 4:21PM [id number] [id number] - XR SI JTS 2V AP PELV/PORTER / PROCEDURE REASON: multiple diagnoses * * * * Physician Interpretation * * * * Lumbar spine, bilateral knees, bilateral hands, bilateral feet, and SI joint radiographs HISTORY: 50 years old Clinical information: Dorsalgia Unspecified inflammatory spondylopathy, sacral and sacrococcygeal region (HCC) Pain in joint, multiple sites chronic low back pain (accession [id number]), chronic low back pain (accession [id number]), chronic low back pain (accession [id number]), chronic pain (accession [id number]), chronic pain (accession [id number]), chronic pain (accession [id number]), chronic pain (accession [id number]) TECHNIQUE: Images: XR LUMBAR 2V AP/LAT, XR SI JTS 2V AP PELV/PORTER, XR KNEE SURVEY 1V AP HAYDEN, XR FOOT 3V AP/LAT/OBL LT, XR FOOT 3V AP/LAT/OBL RT, XR HAND 3V PA/LAT/OBL LT, XR HAND 3V PA/LAT/OBL RT Comparison: None. Lumbar spine RESULT: For the purposes of this dictation the iliac crests are at the L4-5 level. Narrowing of the L4-5 intervertebral disc space. Mild endplate osteophyte formation at multiple levels in the lumbar spine. No fracture. SI joints RESULT: SI joints are intact. No fracture or dislocation. No erosions are seen. Narrowing of superolateral right hip joint space. Osteophyte formation on the right acetabulum. Superior left hip joint space is maintained. Osteophyte and degenerative cyst formation involving the left superior acetabulum. Remainder of the imaged bony pelvis appears to be intact. Pubic symphysis is intact. Left hand RESULT: No fracture or dislocation. Small osteophytes adjacent to the third metacarpal phalangeal joint. No erosions are seen. No chondrocalcinosis. Positive ulnar variance. Right hand RESULT: Small osteophytes adjacent to multiple distal interphalangeal joints. Osteophytes subjacent to the second and third metacarpophalangeal joint. No fracture or dislocation. No erosions are seen. No chondrocalcinosis. Calcification adjacent to the ulnar styloid process likely sequelae of prior trauma. Left foot RESULT: Joint spaces are maintained. No fracture or dislocation. Enthesophyte at the Achilles insertion site on the calcaneus. No soft tissue abnormality identified. Right foot RESULT: Joint spaces are maintained. No fracture or dislocation. No soft tissue abnormality identified. Left knee RESULT: Single view of the left knee shows narrowing of the medial and lateral compartment joint spaces. Marginal osteophytes extending off tibial plateaus and femoral condyles. No fracture or dislocation. Right knee RESULT: Single view of the right knee shows narrowing of medial and lateral compartment joint spaces. Marginal osteophyte extending off the lateral tibial plateau. No fracture or dislocation. IMPRESSION: Osteoarthrosis. No evidence of an inflammatory arthropathy. Turret Press Operator: BEVERLEY Transcribe Date/Time: Dec 27 2020 4:22P Dictated by : SHEA ARMAS MD This examination was interpreted and the report reviewed and electronically signed by: SHEA ARMAS MD on Dec 27 2020 4:29PM EST [id number] [facility] CNOVon 12-04-2020 CNOV Office Visit (RHBATH ) HARRY CORTES ([id number]) 1970 M Date Time Provider Department 12/04/20 10:20 AM SUE ORELLANA During your visit today, we recorded the following information about you: Temperature Pulse Blood pressure Weight 98.1 degrees 82/minute 118/80 99.8 kg Sue Orellana MD 12/05/2020 11:03 AM Signed RHEUMATOLOGY NEW PATIENT NOTE REFERRING PHYSICIAN: Self CHIEF COMPLAINT: Patient presents with: Chronic Pain New Patient HPI: Harry Cortes is a 50 year old male who presents with joint pain. 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 He had back surgery in 2009, herniated disc. Pain over shoulders, knees, hands, low back, ankle L >R. stiff. Never been tested for autoimmune diseases. Some injuries before. He sees pain management. He takes morphine, dilaudid. Some hand swelling. No recent xrays. Had PT. He had MRI shoulder- left rotator cuff tear. Surgery was advised but he declined. He saw ortho. He will be getting shoulder injections L>R DM2, HTN, CAD, HLP Family history of autoimmune disease: mother with RA, lupus. Sister has joint pain. Smoking status: Tobacco Use: 1 packs/day, for .2 years. Types: Cigarettes, Snuff (09/03/15 Pt had smoked for 10 years AND quit for 20 yrs.) Rheumatology REVIEW OF SYSTEMS: Constitutional: Recent Weight Change: No Fatigue: YES Fever: No Night sweats: No Heent: Alopecia: No H/o Inflammatory eye disease (iritis/scleritis): No Hearing loss: No Frequent sinusitis: No Oral ulcers: No Sicca: No Parotid swelling: No Hoarseness: No Dysphagia: No Heme/lymph: Lymphadenopathy: No Hematological abnormalities (anemia, thrombocytopenia, leukopenia): No Abnormal bleeding: No Skin: Malar or discoid lesions: No Photosensitivity: No Other rashes: No Raynaud's phenomenon: No Hives: No Tightness: No Nodules/bumps: No Easy Bruising: No Nail changes: No H/o psoriasis: No Gastroenterology: Nausea: {No Vomiting: No Change in bowel movements: No Heartburn: No Respiratory: Dry cough/SOB: No Cardiovascular: Pain in chest: No Musculoskeletal: Per HPI Joint pain or swelling: No Prolonged morning stiffness: No Back pain or neck pain: No Muscle weakness: No Genitourinary: Vaginal dryness: No Rash/ulcers: No Neurological: Headaches: YES sometimes sinus, neck pain Sensitivity or pain of hands and/or feet: YES hands, feet Psychiatry: Anxiety: YES Depression: YES Poor sleep: YES H/o loss: No H/o thrombosis: No Increased susceptibility to infection: No PAST MEDICAL HISTORY Diagnosis Date - Anxiety - Atrial fibrillation (HCC) - Back pain - Depression - DM (diabetes mellitus) (HCC) - GERD (gastroesophageal reflux disease) - HTN (hypertension) - Hypercholesterolemia - AMITA (obstructive sleep apnea) - Tobacco abuse PAST SURGICAL HISTORY Procedure Laterality Date - PAST SURGICAL HISTORY OF , 1999 knee bilateral a/s - PAST SURGICAL HISTORY OF 07/05/2009 lumbar laminectomy no fusion - PAST SURGICAL HISTORY OF 07/05/2014 lumbar/ cervical pain injection- muliple. - PAST SURGICAL HISTORY OF cardiac stents Current Outpatient Medications Medication Sig - aspirin, enteric coated (ASPIRIN, ENTERIC COATED) 81 mg EC tablet Take 81 mg by mouth once daily. - ticagrelor (BRILINTA) 90 mg tablet Take 90 mg by mouth twice daily. - carvedilol (COREG) 3.125 mg tablet Take 3.125 mg by mouth twice daily with meals. - empagliflozin (JARDIANCE) 25 mg tablet Take 25 mg by mouth daily with breakfast. - glimepiride (AMARYL) 2 mg tablet Take 2 mg by mouth daily with breakfast. - buPROPion XL (WELLBUTRIN XL) 300 mg 24 hr tablet Take 300 mg by mouth once daily. - atorvastatin (LIPITOR) 80 mg tablet Take 80 mg by mouth once daily. - ARIPiprazole (ABILIFY) 10 mg tablet Take 10 mg by mouth once daily. - metFORMIN 1,000 mg tablet Take 1,000 mg by mouth twice daily with meals. - omeprazole 20 mg capsule Take 20 mg by mouth once daily. - lisinopril 10 mg tablet Take 10 mg by mouth once daily. - tiaGABine 4 mg tablet Take one tablet in AM AND two tablets in PM. - HYDROmorphone 4 mg tablet Take 4 mg by mouth every 6 hours as needed. - sertraline (ZOLOFT) 100 mg tablet Take two tablets by mouth once daily. - DULoxetine (CYMBALTA) 60 mg capsule Take 120 mg by mouth once daily. - DULoxetine (CYMBALTA) 30 mg capsule Take 30 mg by mouth once daily. (Patient not taking: Reported on 12/04/2020 ) - JANUVIA 100 mg tablet Take 100 mg by mouth once daily. (Patient not taking: Reported on 12/04/2020 ) - tiZANidine (ZANAFLEX) 4 mg tablet Take 4 mg by mouth every 6 hours as needed. (Patient not taking: Reported on 12/04/2020 ) - fenofibrate nanocrystallized (TRICOR) 145 mg tablet Take 145 mg by mouth once daily. (Patient not taking: Reported on 12/04/2020 ) - insulin glargi (more content not included)... [facility] FLUOROSCOPY IN OR/PAIN MGTon 04-03-2020 FLUOROSCOPY IN OR/PAIN MGT FLUOROSCOPY IN OR/PAIN MGT Ordering Physician: Walter Youssef DO 04/03/2020 3:15 PM FLUOROSCOPY FOR NEEDLE GUIDANCE: Clinical Statement: Back pain FINDINGS: 11.6 seconds of fluoroscopy time was utilized by Dr. Youssef. Two fluoroscopic spot images were acquired of the lumbar spine. Additional information can be found in Dr. Youssef' report. IMPRESSION: Fluoroscopy provided to Dr. Youssef. ---- Electronic Signature on File ---- Signed By: Silvino Warren MD PhD [email or web address] Dictated: 04/03/2020 3:59 PM Signed: 04/03/2020 3:59 PM Reported By: SILVINO WARREN M.D. Signed By: SILVINO WARREN M.D. [facility] [place] Office Visiton 07-08-2016 Documentation of current medications (procedure) Done Invalid Interpretation Code [facility] Work Phone: Documentation of current medications (procedure) T Invalid Interpretation Code [facility] Work Phone: Tobacco use CPHS Never smoker Invalid Interpretation Code [facility] Work Phone: Vital Signs Date Time Vital Sign Value Performing Clinician Facility 08-03-2023 15:32-0500 Diastolic blood pressure 72 mm[Hg] DO Marylu Mckoy Work Phone: 08-03-2023 15:32-0500 Heart rate 62 /min DO Marylu Leelee Work Phone: 08-03-2023 15:32-0500 Respiratory rate 17 /min DO Marylu Leelee Work Phone: 08-03-2023 15:32-0500 SaO2% (BldA) [Mass fraction] 98 % DO Marylu Leelee Work Phone: 08-03-2023 15:32-0500 Systolic blood pressure 119 mm[Hg] DO Marylu Leelee Work Phone: 08-03-2023 14:32-0500 Body temperature 98.7 [degF] DO Marylu Leelee Work Phone: 08-03-2023 03:29-0500 Body mass index (BMI) [Ratio] 25.9 kg/m2 DO Marylu Leelee Work Phone: 08-03-2023 03:29-0500 Body weight 82.1 kg DO Marylu Leelee Work Phone: 08-02-2023 14:00-0500 Inhaled oxygen flow rate 2 L/min DO Marylu Leelee Work Phone: 08-01-2023 07:00-0500 Diastolic blood pressure 62 mm[Hg] DO Marylu Leelee Work Phone: 08-01-2023 07:00-0500 Heart rate 67 /min DO Marylu Leelee Work Phone: 08-01-2023 07:00-0500 Respiratory rate 18 /min DO Marylu Leelee Work Phone: 08-01-2023 07:00-0500 SaO2% (BldA) [Mass fraction] 98 % DO Marylu Leelee Work Phone: 08-01-2023 07:00-0500 Systolic blood pressure 101 mm[Hg] DO Marylu Leelee Work Phone: 08-01-2023 04:50-0500 Body height 177.8 cm DO Marylu Leelee Work Phone: 08-01-2023 04:50-0500 Body mass index (BMI) [Ratio] 25.7 kg/m2 DO Marylu Leelee Work Phone: 08-01-2023 04:50-0500 Body temperature 97.6 [degF] DO Marylu Leelee Work Phone: 08-01-2023 04:50-0500 Body weight 81.5 kg DO Marylu Leelee Work Phone: 07-29-2023 14:11-0500 Body mass index (BMI) [Ratio] 26.1 kg/m2 DO Marylu Leelee Work Phone: 07-29-2023 14:11-0500 Body weight 82.55 kg DO Marylu Leelee Work Phone: 07-29-2023 14:11-0500 Diastolic blood pressure 86 mm[Hg] DO Marylu Leelee Work Phone: 07-29-2023 14:11-0500 Heart rate 72 /min DO Marylu Leelee Work Phone: 07-29-2023 14:11-0500 Respiratory rate 18 /min DO Marylu Leelee Work Phone: 07-29-2023 14:11-0500 SaO2% (BldA) [Mass fraction] 98 % DO Marylu Leelee Work Phone: 07-29-2023 14:11-0500 Systolic blood pressure 127 mm[Hg] DO Marylu Leelee Work Phone: 08-20-2022 19:42-0500 Body height 177.8 cm [facility] 08-20-2022 19:42-0500 Body mass index (BMI) [Ratio] 27.5 kg/m2 08-20-2022 19:42-0500 Body temperature 97 [degF] [facility] 08-20-2022 19:42-0500 Body weight 87 kg [facility] 08-20-2022 19:42-0500 Diastolic blood pressure 80 mm[Hg] 08-20-2022 19:42-0500 Heart rate 97 /min [facility] 08-20-2022 19:42-0500 Respiratory rate 14 /min [facility] 08-20-2022 19:42-0500 SaO2% (BldA) [Mass fraction] 98 % 08-20-2022 19:42-0500 Systolic blood pressure 132 mm[Hg] 05-26-2021 23:47-0500 Body height 177.8 cm Sindi Blackman AUTOMOBILE TECHNICIAN.SAFETY ADVISOR Work Phone: [facility] 05-26-2021 23:47-0500 Body weight 97.52 kg Sindi Blackman AUTOMOBILE TECHNICIAN.SAFETY ADVISOR Work Phone: [facility] 05-26-2021 23:47-0500 Diastolic blood pressure 78 mm[Hg] Sindi Blackman AUTOMOBILE TECHNICIAN.SAFETY ADVISOR Work Phone: [facility] 05-26-2021 23:47-0500 Heart rate 87 /min Sindi Blackman AUTOMOBILE TECHNICIAN.SAFETY ADVISOR Work Phone: [facility] 05-26-2021 23:47-0500 Respiratory rate 19 /min Sindi Blackman AUTOMOBILE TECHNICIAN.SAFETY ADVISOR Work Phone: [facility] 05-26-2021 23:47-0500 SaO2% (BldA) [Mass fraction] 97 % Sindi Blackman AUTOMOBILE TECHNICIAN.SAFETY ADVISOR Work Phone: [facility] 05-26-2021 23:47-0500 Systolic blood pressure 127 mm[Hg] Sindi Blackman AUTOMOBILE TECHNICIAN.SAFETY ADVISOR Work Phone: [facility] 07-12-2013 13:26-0500 BP Diastolic 87 mm[Hg] [facility] Work Phone: 07-12-2013 13:26-0500 BP Systolic 135 mm[Hg] [facility] Work Phone: 07-12-2013 13:26-0500 Height 177.8 cm [facility] Work Phone: 07-12-2013 13:26-0500 Pulse (Heart Rate) 75 /min [facility] Work Phone: 07-12-2013 13:26-0500 Weight 106.14 kg [facility] Work Phone: Encounters Encounter Date Encounter Type Care Provider Facility Start: 05-25-2024 End: 05-25-2024 ambulatory Flori Mckoy Kenneth Facility: Start: 04-03-2024 End: 04-04-2024 Emergency department patient visit Gerber Kaiser Facility: Start: 12-02-2023 ambulatory Caryl Espinoza FIELD RECRUITER [facility] Start: 08-11-2023 ambulatory Caryl Espinoza FIELD RECRUITER Facili ty: Start: 08-03-2023 Non-patient / Non-visit DO Kri stin Leelee Work Phone: [facility] Work Phone: Start: 08-03-2023 Non-patient / Non-visit DO Kri stin Leelee Work Phone: [facility] Start: 08-02-2023 Non-patient / Non-visit DO Kri stin Leelee Work Phone: [facility] Work Phone: Start: 08-02-2023 ambulatory Tomeka Galeanonc Facility:[facility] Start: 08-02-2023 End: 08-03-2023 Evaluation and management of inpatient DO [facility]: Start: 08-02-2023 Non-patient / Non-visit DO Ayan Mckoy Work Phone: [facility] Start: 08-01-2023 Evaluation and manag ement of inpatient DO Marylu [facility]nger [facility]: Start: 08-01-2023 observation encounter DO Romero Ohnger Work Phone: Work Phone: Start: 08-01-2023 End: 08-03-2023 ambulatory Marcell Snow Facility: Start: 08-01-2023 Non-patient / Non-visit DO Ayan Ohnger Work Phone: [facility] Work Phone: Start: 07-29-2023 End: 07-29-2023 Patient encounter procedure DO Marylu Mckoy Work Phone: [facility] Work Phone: Start: 07-29-2023 End: 07-29-2023 ambulatory Caryl Espinoza NP Facility:[facility] Start: 06-15-2023 End: 06-15-2023 Patient encounter procedure DO Marylu Ohnger Work Phone: [facility] Work Phone: Start: 06-09-2023 End: 06-09-2023 ambulatory DO Marylu Demetrius Leelee Work Phone: Work Phone: Start: 06-09-2023 End: 06-09-2023 Patient encounter procedure DO Marylu Ohnger Work Phone: -Laboratory, [facility] Start: 09-02-2022 End: 09-02-2022 ambulatory Work Phone: Start: 09-02-2022 End: 09-02-2022 Patient encounter procedure -Cat Scan, [facility] Start: 08-25-2022 End: 08-25-2022 ambulatory Work Phone: Start: 08-25-2022 End: 08-25-2022 Patient encounter procedure -Radiology, [facility] Start: 08-20-2022 End: 08-20-2022 Emergency department patient visit -Emergency Department Start: 07-21-2022 Refill Sindi Blackman APRN.COLLEEN Work Phone: Pain Management Comment on above: Refill Request Start: 01-23-2022 End: 01-23-2022 ambulatory Sindi Blackman AUTOMOBILE TECHNICIAN.SAFETY ADVISOR Work Phone: Pain Management Comment on above: Degeneration of lumb ar or lumbosacral intervertebral disc (Primary Dx); Cervical spondylosis without myelopathy; Generalized osteoarthritis; Lumbar disc herniation Start: 01-23-2022 End: 01-23-2022 Telemedicine consultation with patient Sindi Blackman APRN.COLLEEN Work Phone: [facility] Start: 12-09-2021 Chart abstracting Sindi mooney APRN.COLLEEN Work Phone: [facility] Management Start: 09-23-2021 End: 09-23-2021 Subsequent hospital visit by physician Sindi Blackman MD Work Phone: [facility] Comment on above: VIRTUAL Procedures Date Procedure Procedure Detail Performing Clinician Start: 08-02-2023 Cardiovascular stress test using pharmacologic stress agent DO Marylu Mckoy Work Phone: Start: 08-01-2023 Plain chest X-ray DO Marylu Mckoy Work Phone: Start: 09-02-2022 CT of chest Start: 08-25-2022 Plain chest X-ray Start: 08-20-2022 Plain chest X-ray Start: 02-13-2019 History of placement of stent for coronary artery disease History of coronary artery stent placement Start: 07-08-2016 End: 07-16-2016 Drain/inject, joint/bursa Georges Smith Work Phone: Plan of Treatment Date Care Activity Detail Author Start: 08-03-2023 Patient discharge Start: 08-02-2023 Admission procedure Start: 08-02-2023 Referral to cereal maker [facility] Start: 08-01-2023 Following clinical pathway protocol Start: 08-01-2023 Assessment of risk of venous thromboembolism Start: 08-01-2023 Care regimes management [facility] Start: 08-01-2023 Inhalation therapy procedure [facility] Start: 08-01-2023 Insertion of catheter into peripheral vein Start: 08-01-2023 Introduction of urinary catheter Start: 08-01-2023 Measuring intake and output [facility] Start: 08-01-2023 Notification of physician [facility] Start: 08-01-2023 Oxygen therapy Start: 08-01-2023 Patient referral to dietitian [facility] Start: 08-01-2023 Providing care according to standard Start: 08-01-2023 Provision of activity privileges Start: 08-01-2023 Referral to service Start: 08-01-2023 Tobacco use cessation education Start: 08-01-2023 End: 08-01-2023 Start: 08-01-2023 Troponin I measurement Start: 08-01-2023 Electrocardiographic procedure Start: 08-01-2023 Verification routine Start: 08-01-2023 Admission procedure Start: 08-01-2023 Hospital admission, emergency, from emergency room, medical nature Start: 08-01-2023 Start: 09-02-2022 CT of chest Low Dose CT Lung Screening Start: 08-20-2022 Start: 05-26-2022 BP CONTROLLED (<130/80) BP CONTROLLED (<130/80) [facility] Start: 03-05-2022 Influenza vaccination [facility] Start: 12-27-2021 Hepatitis B screening URINE ALBUMIN:CREATININE RATIO [facility] Start: 10-27-2021 SHINGRIX VACCINE (1 of 2) SHINGRIX VACCINE (1 of 2) [facility] Start: 03-05-2021 Influenza vaccination INFLUENZA (#1) [facility] Start: 06-14-2018 Hepatitis B surface antibody level LDL CHOLESTEROL [facility] Start: 09-12-2017 Hemoglobin A1c/Hemoglobin.total in Blood HBA1C [facility] Start: 03-24-2017 End: 03-24-2017 Appointment Appointment [facility] Work Phone: Start: 10-27-2016 COLOGUARD (FIT-DNA) COLOGUARD (FIT-DNA) [facility] Start: 10-27-2016 Colonoscopy COLONOSCOPY [facility] Start: 10-27-2016 COLORECTAL CANCER SCREENING COLORECTAL CANCER SCREENING [facility] Start: 10-27-[address] COLONOGRAPHY [facility] Start: 10-27-2016 FECAL OCCULT BLOOD FECAL OCCULT BLOOD [facility] Start: 10-27-2016 SIGMOIDOSCOPY SIGMOIDOSCOPY [facility] Start: 07-08-2016 End: 07-08-2016 X-ray exam of shoulder X-Ray, Shoulder [facility] Work Phone: Start: 10-27-1990 HEPATITIS B (1 of 3 - Risk 3-dose series) HEPATITIS B (1 of 3 - Risk 3-dose series) [facility] Start: 10-27-1990 Urine microalbumin profile DTAP,TDAP,TD (1 - Tdap) [facility] Start: 10-27-1989 ANNUAL PCP TEAM CHRONIC DISEASE VISIT ANNUAL PCP TEAM CHRONIC DISEASE VISIT [facility] Start: 10-27-1989 BP CONTROLLED (<130/80) BP CONTROLLED (<130/80) [facility] Start: 10-27-1989 HIV SCREENING HIV SCREENING [facility] Start: 1987 ONE PNEUMOVAX PRIOR TO AGE 66 ONE PNEUMOVAX PRIOR TO AGE 66 [facility] Start: 10-27-1981 3 comp foot exam [facility] Start: 10-27-1981 Hepatitis C antibody, confirmatory test DILATED RETINAL EXAM [facility] Start: 10-27-1977 PNEUMOCOCCAL (1 - PCV) PNEUMOCOCCAL (1 - PCV) [facility] Start: 10-27-1976 COVID-19 VACCINE (#1) COVID-19 VACCINE (#1) [facility] Start: 10-27-1976 COVID-19 VACCINE (1) COVID-19 VACCINE (1) [facility] Start: 04-28-1972 COVID-19 VACCINE (#1) COVID-19 VACCINE (#1) [facility] Start: 1971 HEPATITIS B (1 of 3 - 3-dose series) HEPATITIS B (1 of 3 - 3-dose series) [facility] Lipid 1996 panel - S rosaura or Plasma NM Heart Views W str ess and W radionuclide IV Patient Education ED Chest Pain, Noncardiac ED Diabetic Hyperglycemia Work Phone: Patient referral [facility] Work Phone: [facility] Payers Date Payer Category Payer Medicare [id number] 2023 Medicare [id number] 2023 Self-pay [id number] 2023 Medicaid [id number] 2023 Unknown [id number] 2021 Unknown ANTHEM BLUE CROS S AND BLUE SHIELD ANTHEM MEDIBLUE O [id number] 2021-Present [phone] [address] [place] [address] [facility] [id number] 09-02-2021 Unknown ANTHEM BLUE CROS S AND BLUE SHIELD ANTHEM MEDIBLUE HMO [id number] 09/02/2021-Present [phone] [address] [place] [address] HMO [id number] 12-04-2015 Medicaid [employer] [facility]ID [id number] 12/04/2015-Present [phone] [address] [place] [address] Medicaid [id number] 12-04-2015 Medicaid [employer] [facility] [place] MEDICAID [id number] 12/04/2015-Present [phone] [address] [place] [address] Medicaid [id number] Medicare [employer] MEDICARE [id number] [facility] [id number] Unknown [id number] Unknown [id number] Unknown [id number] Unknown [id number] Unknown [id number] Unknown [id number] Unknown [id number] Unknown [id number] Unknown [id number] Unknown [id number] Unknown [id number] Unknown [id number] Social History Date Type Detail Facility [facility]: [facility]04[facility] History of tobacco use Cigarette Smoker [facility] Start: 12-04-2020 End: 12-09-2021 Cigarettes smoked current (pack per day) - Reported 1 [facility] Start: 12-04-2020 End: 12-09-2021 Tobacco use and exposure User of smokeless tobacco [facility] End: 03-05-2015 History of tobacco use Snuff User [facility] Start: 12-04-2020 End: 12-09-2021 Alcohol intake Current drinker of alcohol (finding) [facility] Start: 12-13-2013 History SDOH Alcohol Comment rarely [facility] Start: 12-04-2020 Tobacco Comment 09/03/15 Pt had smoked for 10 years & quit for 20 yrs. [facility] Start: 1970 Sex Assigned At Not on file [facility] Start: 12-09-2021 Tobacco smoking stat [facility] Smokes tobacco daily [facility] Start: 01-13-2022 End: 01-23-2022 Exposure to SARS-CoV-2 (event) Not sure [facility] Work Phone: Start: 08-20-2022 End: 08-01-2023 Tobacco smoking status [facility] Unknown if ever smoked Start: 03-27-2020 None [facility] Start: 03-27-2020 Spouse/ Signif icant Other Start: 04-08-2021 Non-smoker [facility] Start: 1970 Sex Assigned At Male W [facility] Medical Equipment Procedure Code Equipment Code Equipment Origin al Text Equipment Identifier Dates Blood Sugar Diagnostic (Freestyle Lite Strips) strip Start: 12-26-2019 End: 07-22-2021 Blood Sugar Diagnostic (Freestyle Lite Strips) strip Start: 01-23-2021 End: 11-20-2021 Blood Sugar Diagnostic (Onetouch Ultra Test) strip Start: 04-18-2021 End: 10-03-2021 Lancets (Freesty le Lancets) 28 gauge misc Start: 12-26-2019 End: 01-23-2021 Lancets (Freesty le Lancets) 28 gauge misc Start: 01-23-2021 End: 11-20-2021 Blood Sugar Diagnostic (Freestyle Lite Strips) strip Start: 12-26-2019 End: 01-23-2021 Blood Sugar Diagnostic (Freestyle Lite Strips) strip Start: 01-23-2021 End: 11-20-2021 Blood Sugar Diagnostic (Onetouch Ultra Test) strip Start: 04-18-2021 End: 10-03-2021 Lancets (Freesty le Lancets) 28 gauge misc Start: 12-26-2019 End: 01-23-2021 Lancets (Freesty le Lancets) 28 gauge misc Start: 01-23-2021 End: 11-20-2021 Blood Sugar Diagnostic (Freestyle Lite Strips) strip Start: 12-26-2019 End: 01-23-2021 Blood Sugar Diagnostic (Freestyle Lite Strips) strip Start: 01-23-2021 End: 11-20-2021 Blood Sugar Diagnostic (Onetouch Ultra Test) strip Start: 04-18-2021 End: 10-03-2021 Lancets (Freesty le Lancets) 28 gauge misc Start: 12-26-2019 End: 01-23-2021 Lancets (Freesty le Lancets) 28 gauge misc Start: 01-23-2021 End: 11-20-2021 Blood Sugar Diagnostic (Freestyle Lite Strips) strip Start: 12-26-2019 End: 01-23-2021 Blood Sugar Diagnostic (Freestyle Lite Strips) strip Start: 01-23-2021 End: 11-20-2021 Blood Sugar Diagnostic (Onetouch Ultra Test) strip Start: 04-18-2021 End: 10-03-2021 Lancets (Freesty le Lancets) 28 gauge misc Start: 12-26-2019 End: 01-23-2021 Lancets (Freesty le Lancets) 28 gauge misc Start: 01-23-2021 End: 11-20-2021 Blood Sugar Diagnostic (Freestyle Lite Strips) strip Start: 12-26-2019 End: 01-23-2021 Blood Sugar Diagnostic (Freestyle Lite Strips) strip Start: 01-23-2021 End: 11-20-2021 Blood Sugar Diagnostic (Onetouch Ultra Test) strip Start: 04-18-2021 End: 10-03-2021 Lancets (Freesty le Lancets) 28 gauge misc Start: 12-26-2019 End: 01-23-2021 Lancets (Freesty le Lancets) 28 gauge misc Start: 01-23-2021 End: 11-20-2021 Blood Sugar Diagnostic (Freestyle Lite Strips) strip Start: 12-26-2019 End: 01-23-2021 Blood Sugar Diagnostic (Freestyle Lite Strips) strip Start: 01-23-2021 End: 11-20-2021 Blood Sugar Diagnostic (Onetouch Ultra Test) strip Start: 04-18-2021 End: 10-03-2021 Lancets (Freesty le Lancets) 28 gauge misc Start: 12-26-2019 End: 01-23-2021 Lancets (Freesty le Lancets) 28 gauge misc Start: 01-23-2021 End: 11-20-2021 Goals Date Patient Goal Desired Activity /State Functional Status Date Assessment Result Facility 08-03-2023 Functional status Ambulates [facility] Work Phone: Mental Status Date Assessment Result Facility 08-03-2023 Cognitive function Voice/Name [facility] Work Phone: 08-01-2023 Cognitive function Voice/Name [facility] Work Phone: 08-20-2022 Cognitive function Voice/Name [facility] Work Phone: Clinical Notes 02-13-2019 to 08-03-2023 Note Date & Type Note Facility 08-03-2023 Discharge summary Note Date/Time August 03, 2023 2:12pm [facility] Medical Records Department [address] [place] [address] Discharge Summary 08/03/23 1408 MR#: [id number] Acct: [id number] Name: HARRY CORTES Jr. Rep #:[id number] : 1970 52 From: Marcell finch MD PCP: Marylu Mckoy DO Status:ADM I N Location: [place] [address] Providers Date of Admission: 08/02/23 Primary Care Physician: Marylu Mckoy DO Consultations 08/02/23 15:43 Consult: Cardiology Routine Consulting Provider: Tomeka Garcia Reason for Consult: heart cath in am EMERGENT Consult: No MD Notified: Yes Date Notified: 08/02/23 Time Notified: 15:43 Method of Notification: Verbal Reason For Visit: CHEST PAIN Diagnosis Discharge Diagnosis (1) Type 1 diabetes mellitus with hyperglycemia, without long-term current use of insulin: Status: Acute Code(s): E10.65 - Type 1 diabetes mellitus with hyperglycemia (2) Chest pain: Status: Acute Code(s): R07.9 - Chest pain, unspecified (3) 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: Status: Acute Code(s): I25.119 - Atherosclerotic heart disease of cheesh-na coronary artery with unspecified angina pectoris (4) History of coronary artery stent placement: Status: Chronic Code(s): Z95.5 - Presence of coronary angioplasty implant and graft (5) Paroxysmal atrial fibrillation: Status: Chronic Code(s): I48.0 - Paroxysmal atrial fibrillation Medications at Discharge Home Medications aspirin 81 mg tablet,delayed release 81 mg PO DAILY #90 tabs 07/29/23 brexpiprazole 0.5 mg tablet (Rexulti) 1 mg PO DAILY 07/29/23 nitroglycerin 0.4 mg sublingual tablet 0.4 mg sublingual Q5M PRN Cardiac/Chest Pain #1 BOTTLE 07/29/23 omeprazole 20 mg capsule,delayed release 20 mg PO DAILY 07/29/23 empagliflozin 25 mg-linagliptin 5 mg tablet (Glyxambi) 1 tab PO DAILY 08/01/23 meloxicam 15 mg tablet 15 mg PO DAILY 08/01/23 clopidogrel 75 mg tablet (Plavix) 75 mg PO DAILY #30 tabs 08/03/23 rosuvastatin 20 mg tablet (Crestor) 20 mg PO DAILY #30 tabs 08/03/23 Hospital Course Operations None Procedures 2-D Echocardiogram, Cardiac catheterization and Stress test Summary of Care Provided Minutes Spent on Discharge: 37 Hospital Course: Per HPI: The patient is a 52 y/o M w/ PMHx: AMITA not compliant with PAP therapy, diabetes mellitus type II, CAD s/p NSTEMI 09/2018 s/p PCI mid diagonal, 02/2019 PCI circumflex, Chronic back pain following with pain management, HTN, HLD, PAF,Tobacco use, recent 07/29/23 Cardiology visit during which patient reported he stopped all of his medication including his antiplt therapies secondary to beingtired of taking them with noted preference per cardiology to obtain a surveillance stress test in addition to strong encouragement to consider anticoagulation given his [id number] score of 2 who now presents to the [facility] 08/01/23 with history of onset of chest discomfort described as a tightness inthe substernal region with associated nausea, dyspnea, lightheadedness and diaphoresis with self administration of nitroglycerin x 3 at home with EMS call and administration of full-strength aspirin therapy upon their arrival. He notes being chest pain-free at this time. Workup in the ED included T97.6, heart rate 74, BP 99/59, respiratory rate 15, 95% on room air, CBC with WBC 12, hemoglobin 14.4, platelet 160 with left shift, BMP with glucose 538 otherwise not marked appearing, troponin 18, EKG with sinus rhythm with mild QT prolongation with QTc 464 with no acute evidence of ischemia, chest x-ray with no acute cardiopulmonary finding with final read pending. In the ED patient ministered [place] 1 tablet p.o. x 1. Hospital course: 1. Chest pain/CAD status post stent/HTN/HLD/A-fib?52-year-old male presented [facility] with chest pressure mid to get a little bit better with taking his nitroglycerin at home and he did have a previous coronary artery history with stents placed in 2018 at the time he had 2 stents placed with a third area of disease that could not be stented. He underwent a stress test which was positive for signs of ischemia so he was scheduled for a heart cath today on theday of discharge. The cath demonstrated patent stents as well as read demonstration of that region for coronary disease that could not be fixed. No other areas that needed intervention. In discussing the case with cardiology they felt of adding Plavix to his aspirin therapy and increasing his Crestor from 10 mg to 20 mg may be enough. I discussed these medication changes with him and he expressed understanding. 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 I recommend outpatient follow-up with his PCP and potential evaluation by cardiology if he develops palpitations or has EKG findings consistent with A-fib. At this time will not place him on anticoagulation as he is somewhat resistant to taking a significant amount of meds without a strong indication for it. I discussed with him the plan for discharge today he expressed understanding of the risk and benefits of going home and wants to go home today. 2. Anxiety, depression, GERD, type 2 diabetes are all chronic medical conditions which complicate his care. His home medications were continued whereappropriate Physical Exam Narrative General: Alert, Oriented x3, Cooperative, No apparent distress HEENT: Atraumatic, PERRLA, EOMI, Normocephalic Oral: Moist Mucosa Neck: Supple, No JVD Lungs: Clear to auscultation, Normal air movement, No rhonchi, No wheeze, No rales Cardiovascular: Regular rate, Regular Rhythm, Normal S1, Normal S2, No murmurs Abdomen: Soft, Non Tender, Non-Distended, No Hepato-splenomegaly Extremities: No edema, Capillary Refill Less than 3 Seconds Skin: No rashes, No breakdown Musculoskeletal: No Tenderness to Palpation of Joints or Extremities Neurological: Cranial nerves II-XII grossly intact, Motor Exam 5/5 strength throughout, Sensory exam intact to light touch and pain Psych/Mental Status: Normal Affect, Appropriate Weight / BMI Weight Weight: 180 lb 15.992 oz Body Mass Index (BMI) 25.9 ABG / Lab / Microbiology Data 08/03/23 06:36 08/03/23 06:36 Laboratory: Laboratory Results - last 24 hr 08/02/23 16:43: POC Glucose 343 H 08/02/23 22:37: POC Glucose 453 H* 08/03/23 06:23: POC Glucose 232 H 08/03/23 06:36: WBC 10.6, RBC 5.05, Hgb 14.6, Hct 45.4, MCV 89.9, MCH 28.9, MCHC32.2, RDW Std Deviation 44.5 H, RDW Coeff of Sarahi 13.5, Plt Count 146 L, MPV 12.2H, Immature Gran % (Auto) 1.000 H, Neut % (Auto) 60.1, Lymph % (Auto) 28.6, Gordon% (Auto) 7.0, Eos % (Auto) 2.4, Baso % (Auto) 0.9, Absolute Neuts (auto) 6.4, Absolute Lymphs (auto) 3.04, Nucleated RBC % 0, Sodium 140, Potassium 3.5, Chloride 111 H, Carbon Dioxide 26.0, Anion Gap 3 L, BUN 13, Creatinine 0.60 L, Estim Creat Clear Calc 150.39, Est GFR (MDRD) Af Amer 181, Est GFR (MDRD) Non-Af149, BUN/Creatinine Ratio 21.5 H, Glucose 234 H, Calcium 8.7 08/03/23 11:30: POC Glucose 193 H D/C Instructions Discharge Diet: Low fat / Low cholesterol Call your doctor if you observe: Fever of 101 or Higher, Shortness of breath, Dizziness, Fainting spells, Swelling in the ankles, Chest pain and Increased palpitations (irregular heartbeat) Meaningful Use Info Meaningful Use Diagnoses (Choose all that apply): None applicable Discharge Plan Admission Admit Date/Time: 08/02/23 15:43 Attending Provider: Marcell Snow Primary Care Provider: Marylu Mckoy Consulting Providers: Marcie London; James Miller; Tomeka Garcia Discharge Orders/Prescriptions Prescriptions: New clopidogrel [Plavix] 75 mg tablet 75 mg PO DAILY Qty: 30 0RF rosuvastatin [Crestor] 20 mg tablet 20 mg PO DAILY Qty: 30 0RF Continued omeprazole 20 mg capsule,delayed release(DR/EC) 20 mg PO DAILY Rexulti 0.5 mg tablet 1 mg PO DAILY nitroglycerin 0.4 mg tablet, sublingual 0.4 mg sublingual Q5M PRN (Reason: Cardiac/Chest Pain) Qty: 1 3RF aspirin 81 mg tablet,delayed release (DR/EC) 81 mg PO DAILY Qty: 90 3RF Glyxambi 25-5 mg tablet 1 tab PO DAILY meloxicam 15 mg tablet 15 mg PO DAILY Patient Comments: take 1 tablet by mouth once daily Discontinued rosuvastatin [Crestor] 10 mg tablet 10 mg PO DAILY Referrals / Follow Up: Marylu Mckoy DO [Primary Care Provider] - Within 1 Week Disposition Disposition (needs filled in before D/C Order can be placed): Home, Self Care Charges/Coding Visit Charges Inpatient E&M: 79295 Disch Hosp >30min 08/03/23 1412 <Electronically signed by Marcell Snow MD> Cosigner Signature (if applicable): CC: Dr. Marcell Snow MD; Marylu Mckoy DO~ Signed Work Phone: 1(120) 369-591701-30-2024 Consult note Author Larry Eddy August 03, 2023 1:35pm Note Date/Time August 03, 2023 1 :35pm [facility] Medical Records Department [address] [place] [address] Counseling Note - Pharmacy 08/03/23 1334 MR#: [id number] Acct: [id number] Name: HARRY CORTES Jr. Rep #:[id number] : 1970 52 From: Larry Eddy PCP: Marylu Mckoy DO Status:ADM I N Y Location: [place] [address] Pharmacy [facility] has performed discharge medication reconciliation and counseling for this patient. The patient's discharge medication list was reviewed for discrepancies and discrepancies were resolved. The patient was counseled on the following discharge medications and changes in medications for homegoing were reviewed. The Reason for Use, instructions for use, and potential side effects were reviewed for all new medications. The patient's questions regarding all of their medications were answered. 1. clopidogrel 75 mg PO daily 2. rosuvastatin 20 mg PO daily The patient was able to verbally demonstrate an understanding of their dischargemedications. Medications at Discharge Home Medications aspirin 81 mg tablet,delayed release 81 mg PO DAILY #90 tabs 07/29/23 brexpiprazole 0.5 mg tablet (Rexulti) 1 mg PO DAILY 07/29/23 nitroglycerin 0.4 mg sublingual tablet 0.4 mg sublingual Q5M PRN Cardiac/Chest Pain #1 BOTTLE 07/29/23 omeprazole 20 mg capsule,delayed release 20 mg PO DAILY 07/29/23 empagliflozin 25 mg-linagliptin 5 mg tablet (Glyxambi) 1 tab PO DAILY 08/01/23 meloxicam 15 mg tablet 15 mg PO DAILY 08/01/23 clopidogrel 75 mg tablet (Plavix) 75 mg PO DAILY #30 tabs 08/03/23 rosuvastatin 20 mg tablet (Crestor) 20 mg PO DAILY #30 tabs 08/03/23 08/03/23 1335 <Electronically signed by Larry quiñonez> Date _ Larry Stockton Signature (if applicable): Date CC: ~ Signed Work Phone: 1(419) 231-744001-30-2024 Discharge summary Author Marcell Snow August 03, 2023 12:50pm Note Date/Time August 03, 2023 1 2:41pm [facility] Medical Records Department [address] [place] [id number] Instructions for Home/Discharge Instructions 08/03/23 1240 MR#: [id number] Acct: [id number] Name: HARRY CORTES Jr. Rep #:[id number] : 1970 52 From: Marcell finch MD PCP: Marylu Mckoy, Status:ADM I N Discharge Instructions Diet Discharge Diet: Low fat / Low cholesterol Activity Discharge Activity: Return to Normal Activity Dressing / Incision Call your doctor if you observe: Fever of 101 or Higher, Shortness of breath, Dizziness, Fainting spells, Swelling in the ankles, Chest pain and Increased palpitations (irregular heartbeat) Follow Up Care Test Results: Test results from this visit will be discussed in further detail at your follow- up appointment, if applicable. Discharge Plan Admission Admit Date/Time: 08/02/23 15:43 Attending Provider: Marcell Snow Primary Care Provider: Marylu Mckoy Consulting Providers: Marcie London; James Miller; Tomeka Garcia Discharge Orders/Prescriptions Prescriptions: New clopidogrel [Plavix] 75 mg tablet 75 mg PO DAILY Qty: 30 0RF rosuvastatin [Crestor] 20 mg tablet 20 mg PO DAILY Qty: 30 0RF Continued omeprazole 20 mg capsule,delayed release(DR/EC) 20 mg PO DAILY Rexulti 0.5 mg tablet 1 mg PO DAILY nitroglycerin 0.4 mg tablet, sublingual 0.4 mg sublingual Q5M PRN (Reason: Cardiac/Chest Pain) Qty: 1 3RF aspirin 81 mg tablet,delayed release (DR/EC) 81 mg PO DAILY Qty: 90 3RF Glyxambi 25-5 mg tablet 1 tab PO DAILY meloxicam 15 mg tablet 15 mg PO DAILY Patient Comments: take 1 tablet by mouth once daily Discontinued rosuvastatin [Crestor] 10 mg tablet 10 mg PO DAILY Referrals / Follow Up: Marylu Mckoy DO [Primary Care Provider] - Within 1 Week Disposition Disposition (needs filled in before D/C Order can be placed): Home, Self Care 08/03/23 1250<Electronically signed by Marcell Snow MD>Marcell Snow MD CC: Dr. Marcie London MD; Dr. Tomeka Garcia MD; Dr. James Miller MD; Marylu Mckoy DO ~ Signed Work Phone: 1(865) 108-237301-30-2024 [facility] Medical Records Department [address] [place] [address] Discharge Summary 08/03/23 1408 MR#: [id number] Acct: [id number] Name: HARRY CORTES Jr. Rep #: [id number] : 1970 52 From: Marcell Snow MD PCP: Marylu Mckoy DO Status:ADM IN Location: [place] [address]1 Providers Date of Admission: 08/02/23 Primary Care Physician: Marylu Mckoy DO Consultations 08/02/23 15:43 Consult: Cardiology Routine Consulting Provider: Tomeka Garcia Reason for Consult: heart cath in am EMERGENT Consult: No MD Notified: Yes Date Notified: 08/02/23 Time Notified: 15:43 Method of Notification: Verbal Reason For Visit: CHEST PAIN Diagnosis Discharge Diagnosis (1) Type 1 diabetes mellitus with hyperglycemia, without long-term current use of insulin: Status: Acute Code(s): E10.65 - Type 1 diabetes mellitus with hyperglycemia (2) Chest pain: Status: Acute Code(s): R07.9 - Chest pain, unspecified (3) 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: Status: Acute Code(s): I25.119 - Atherosclerotic heart disease of cheesh-na coronary artery with unspecified angina pectoris (4) History of coronary artery stent placement: Status: Chronic Code(s): Z95.5 - Presence of coronary angioplasty implant and graft (5) Paroxysmal atrial fibrillation: Status: Chronic Code(s): I48.0 - Paroxysmal atrial fibrillation Medications at Discharge Home Medications aspirin 81 mg tablet,delayed release 81 mg PO DAILY #90 tabs 07/29/23 brexpiprazole 0.5 mg tablet (Rexulti) 1 mg PO DAILY 07/29/23 nitroglycerin 0.4 mg sublingual tablet 0.4 mg sublingual Q5M PRN Cardiac/Chest Pain #1 BOTTLE 07/29/23 omeprazole 20 mg capsule,delayed release 20 mg PO DAILY 07/29/23 empagliflozin 25 mg-linagliptin 5 mg tablet (Glyxambi) 1 tab PO DAILY 08/01/23 meloxicam 15 mg tablet 15 mg PO DAILY 08/01/23 clopidogrel 75 mg tablet (Plavix) 75 mg PO DAILY #30 tabs 08/03/23 rosuvastatin 20 mg tablet (Crestor) 20 mg PO DAILY #30 tabs 08/03/23 Hospital Course Operations None Procedures 2-D Echocardiogram, Cardiac catheterization and Stress test Summary of Care Provided Minutes Spent on Discharge: 37 Hospital Course: Per HPI: The patient is a 52 y/o M w/ PMHx: AMITA not compliant with PAP therapy, diabetes mellitus type II, CAD s/p NSTEMI 09/2018 s/p PCI mid diagonal, 02/2019 PCI circumflex, Chronic back pain following with pain management, HTN, HLD, PAF, Tobacco use, recent 07/29/23 Cardiology visit during which patient reported he stopped all of his medication including his antiplt therapies secondary to being tired of taking them with noted preference per cardiology to obtain a surveillance stress test in addition to strong encouragement to consider anticoagulation given his [id number] score of 2 who now presents to the [facility] ED on 08/01/23 with history of onset of chest discomfort described as a tightness in the substernal region with associated nausea, dyspnea, lightheadedness and diaphoresis with self administration of nitroglycerin x 3 at home with EMS call and administration of full-s trength aspirin therapy upon their arrival. He notes being chest pain-free at this time. Workup in the ED included T97.6, heart rate 74, BP 99/59, respiratory rate 15, 95% on room air, CBC with WBC 12, hemoglobin 14.4, platelet 160 with left shift, BMP with glucose 538 otherwise not marked appeari ng, troponin 18, EKG with sinus rhythm with mild QT prolongation with QTc 464 with no acute evidence of ischemia, chest x-ray with no acute cardiopulmonary finding with final read pending. In the ED p atient ministered [place] 1 tablet p.o. x 1. Hospital course: 1. Chest pain/CAD status post stent/HTN/HLD/A-fib???52-year-old male presented to the hospital with chest pressure mid to get a little bit better with taking his nitroglycerin at home and he did have a previous coronary artery history with stents placed in 2018 at the time he had 2 stents placed with a third area of disease that could not be stented. He underwent a stress test which was positive for signs of ischemia so he was scheduled for a heart cath today on the day of discharge. The cath demonstrated patent stents as well as read demonstration of that region for coronary disease that could not be fixed. No other areas that needed intervention. In discussing the case with cardiology they felt of adding Plavix to his aspirin therapy and increasing his Crestor from 10 mg to 20 mg may be enough. I discussed these medication changes with him and he expressed understanding. 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 08-03-2023 Procedure [facility]01-29-2024 Consult note Author Tomeka Garcia August 02, 2023 6:20pm Note Date/Time August 02, 2023 6 :20pm [facility] Medical Records Department [address] [place] [address] Consultation - Cardiology 08/02/23 1813 MR#: [id number] Acct: [id number] Name: HARRY CORTES JrHossein Rep #:[id number] : 1970 52 From: Tomeka Garcia MD PCP: Marylu Mckoy, DO Status:ADM I N Location: [place] [address] Assessment & Plan Assessment/Plan (1) Type 1 diabetes mellitus with hyperglycemia, without long-term current use of insulin: (2) Chest pain: (3) 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 Has also apical hypokinesia Cardiac care plan recommendation Discussed in detail cardiac care plan with the nursing staff and with the medical team Based on his clinical presentation and symptoms of chest pain in addition to history of PCI and stent of left circumflex and diagonal branch And abnormal nuclear stress test would recommend to evaluate further with cardiac catheterization Approach will be right radial artery approach. And will discuss further plan with the result of cardiac cath. Tomeka Garcia MD,FACC,[facility] HPI Consult Data Date of Consult: 08/02/23 HPI Narrative Reason for Consultation: CAD/status post PCI and stent/[place] HPI Narrative: HARRY CORTES, is a 52 M who presents [facility] Medical History Atherosclerosis of cheesh-na coronary artery of cheesh-na heart without angina pectoris Chronic pain Depression DM2 (diabetes mellitus, type 2) Erectile dysfunction Essential hypertension Herniated disc History of non-ST elevation myocardial infarction (NSTEMI) (09/14/18) HLD (hyperlipidemia) Hypokalemia Impingement of left shoulder Impingement of right shoulder Paroxysmal atrial fibrillation Tobacco use Home Medications aspirin 81 mg tablet,delayed release 81 mg PO DAILY #90 tabs 07/29/23 [Rx Last Taken Unknown] brexpiprazole 0.5 mg tablet (Rexulti) 1 mg PO DAILY 07/29/23 [History Last Taken Unknown] nitroglycerin 0.4 mg sublingual tablet 0.4 mg sublingual Q5M PRN Cardiac/Chest Pain #1 BOTTLE 07/29/23 [Rx Last Taken Unknown] omeprazole 20 mg capsule,delayed release 20 mg PO DAILY 07/29/23 [History Last Taken Unknown] rosuvastatin 10 mg tablet (Crestor) 10 mg PO DAILY 07/29/23 [History Last Taken Unknown] empagliflozin 25 mg-linagliptin 5 mg tablet (Glyxambi) 1 tab PO DAILY 08/01/23 [History Last Taken Unknown] meloxicam 15 mg tablet 15 mg PO DAILY 08/01/23 [History Last Taken Unknown] Allergy/AdvReac Type Severity Reaction Status Date / Time pregabalin [From Lyrica] AdvReac Itching Verified 08/01/23 04:54 Family History Father Esophageal cancer Diabetes Myocardial infarction Mother Arthritis Diabetes Surgical History H/O arthroscopic knee surgery History of arthroscopic knee surgery History of back surgery History of coronary artery stent placement (02/13/19) s/p back Social History (Updated 08/01/23 @ 06:[address] Marcie London MD) household members: spouse Smoking Status: Current every day smoker tobacco type: cigarettes Smoking packsper day: 1 Smoking cigarettes per day: 20.0 Tobacco: How many years used: 30 alcohol intake: current alcohol intake frequency: a few times a week Alcohol type: beer substance use type: does not use what type of physical activity do you participate in: none Physical Exam Cardio Cardio Narrative: Underlying cardiac rhythm is sinus rhythm Cardiac exam S1-S2 regular Chest exam is clear to auscultation bilaterally Risk Stratification Risk Stratification Applicable: Yes Age >/= 65: No >/= 3 CAD Risk Factors (HTN, HLD, DM, family hx of CAD, or current smoker): Yes Aspirin Use in the Past 7 Days: Yes Severe Angina (>/= episodes in 24 hours): No EKG ST Changes >/= 0.5mm: No Positive Cardiac Marker: No CONCHITA Risk Stratification Score: 2 CONCHITA % Risk: 8% Risk Objective Data Vital Signs: Vital Signs Temp Pulse Resp BP Pulse Ox O2 Del Method O2 Flow Rate 98 F 67 17 122/84 H 98 Room Air 2 08/02/23 14:49 08/02/23 14:49 08/02/23 14:49 08/02/23 14:49 08/02/23 14:49 08/02/23 14:49 08/02/23 14:00 Oxygen Flow Rate (L/min) 2 Oxygen Delivery Method Room Air Weight: 180 lb 5.41 oz Body Mass Index (BMI) 25.9 Intake & Output: Intake and Output for Last 24 Hours 07/31/23 08/01/23 08/02/23 23:59 23:59 23:59 Intake Total 1040 / 1040 1060 / 1060 Output Total 500 / 500 Balance 1040 / 1040 560 / 560 Lab / Micro Data 08/02/23 05:11 08/02/23 05:11 Labs: Laboratory Results - last 24 hr 08/01/23 20:43: POC Glucose 372 H 08/02/23 05:11: WBC 11.3 H, RBC 5.04, Hgb 14.8, Hct 45.5, MCV 90.3, MCH 29.4, MCHC 32.5, RDW Std Deviation 45.0 H, RDW Coeff of Sarahi 13.7, Plt Count 142 L, MPV12.2 H, Immature Gran % (Auto) 0.900, Neut % (Auto) 61.5, Lymph % (Auto) 27.7, Gordon % (Auto) 7.0, Eos % (Auto) 2.1, Baso % (Auto) 0.8, Absolute Neuts (auto) 7.0, Absolute Lymphs (auto) 3.14, Nucleated RBC % 0, Sodium 141, Potassium 3.3 L, Chloride 114 H, Carbon Dioxide 22.0, Anion Gap 5, BUN 10, Creatinine 0.51 L, Estim Creat Clear Calc 176.93, Est GFR (MDRD) Af Amer 218, Est GFR (MDRD) Non-Af180, BUN/Creatinine Ratio 19.5, Glucose 187 H, Calcium 8.2 L, Total Bilirubin 0.40, AST 12 L, ALT 22, Alkaline Phosphatase 79, Total Protein 6.1 L, Albumin 2.9 L, Globulin 3.2, Albumin/Globulin Ratio 0.9, Triglycerides 167, Cholesterol 146, LDL Cholesterol 82, VLDL Cholesterol 33, HDL Cholesterol 31 L 08/02/23 06:31: POC Glucose 170 H 08/02/23 12:14: POC Glucose 245 H 08/02/23 16:43: POC Glucose 343 H Cardiology Labs/Tests 08/02/23 05:11: WBC 11.3 H, RBC 5.04, Hgb 14.8, Hct 45.5, MCV 90.3, MCH 29.4, MCHC 32.5, Plt Count 142 L, MPV 12.2 H, Immature Gran % (Auto) 0.900, Neut % (Auto) 61.5, Lymph % (Auto) 27.7, Gordon % (Auto) 7.0, Eos % (Auto) 2.1, Baso % (Auto) 0.8, Absolute Neuts (auto) 7.0, Nucleated RBC % 0, Sodium 141, Potassium 3.3 L, Chloride 114 H, Carbon Dioxide 22.0, Anion Gap 5, BUN 10, Creatinine 0.51L, Est GFR (MDRD) Af Amer 218, Est GFR (MDRD) Non-Af 180, BUN/Creatinine Ratio 19.5, Glucose 187 H, Calcium 8.2 L, Total Bilirubin 0.40, Triglycerides 167, Cholesterol 146, LDL Cholesterol 82, VLDL Cholesterol 33, HDL Cholesterol 31 L Rhythm: EKG: ECHO: Stress Test: Cardiac Cath: PCI: CT Surgery: Holter monitor: EPS: PPM: CXR: Chest CT Scan: 08/02/23 1820 <Electronically signed by Tomeka Garcia MD> Cosigner Signature (if applicable): CC: Dr. Marcie London MD; Dr. Tomeka Garcia MD; Dr. James Miller MD; Marylu Mckoy DO~ Signed Work Phone: 1(891) 467-166601-29-2024 Progress note Author Marcell Snow August 02, 2023 3:48pm Note Date/Time August 02, 2023 3 :48pm [facility] System Medical Records Department [address] [place] [address] Progress Note - Hospitalist 08/02/23 1544 MR#: [id number] Acct: [id number] Name: HARRY CORTES JrHossein Rep #:[id number] : 1970 52 From: Marcell finch MD PCP: Marylu Mckoy DO Status:ADM I NO Location: [place] [address] Subjective Subjective Doing well, denies any further chest pressure or chest pain however stress test did come back positive. He does have a known lesion that he could not get stented previously however he has been off his medications for over 12 months. Objective Data Objective Data Vital Signs: Vital Signs Temp Pulse Resp BP Pulse Ox O2 Del Method O2 Flow Rate 98 F 67 17 122/84 H 98 Room Air 2 08/02/23 14:49 08/02/23 14:49 08/02/23 14:49 08/02/23 14:49 08/02/23 14:49 08/02/23 14:49 08/02/23 14:00 Oxygen Flow Rate (L/min) 2 Oxygen Delivery Method Room Air Weight: 180 lb 5.41 oz Body Mass Index (BMI) 25.9 Intake & Output: Intake and Output for Last 24 Hours 08/01/23 08/02/23 08/03/23 03:59 03:59 03:59 Intake Total 1040 / 1040 1060 / 1060 Output Total 500 / 500 Balance 1040 / 1040 560 / 560 Lab / Micro Data 08/02/23 05:11 08/02/23 05:11 Labs: Laboratory Results - last 24 hr 08/01/23 17:01: POC Glucose 237 H 08/01/23 20:43: POC Glucose 372 H 08/02/23 05:11: WBC 11.3 H, RBC 5.04, Hgb 14.8, Hct 45.5, MCV 90.3, MCH 29.4, MCHC 32.5, RDW Std Deviation 45.0 H, RDW Coeff of Sarahi 13.7, Plt Count 142 L, MPV12.2 H, Immature Gran % (Auto) 0.900, Neut % (Auto) 61.5, Lymph % (Auto) 27.7, Gordon % (Auto) 7.0, Eos % (Auto) 2.1, Baso % (Auto) 0.8, Absolute Neuts (auto) 7.0, Absolute Lymphs (auto) 3.14, Nucleated RBC % 0, Sodium 141, Potassium 3.3 L, Chloride 114 H, Carbon Dioxide 22.0, Anion Gap 5, BUN 10, Creatinine 0.51 L, Estim Creat Clear Calc 176.93, Est GFR (MDRD) Af Amer 218, Est GFR (MDRD) Non-Af180, BUN/Creatinine Ratio 19.5, Glucose 187 H, Calcium 8.2 L, Total Bilirubin 0.40, AST 12 L, ALT 22, Alkaline Phosphatase 79, Total Protein 6.1 L, Albumin 2.9 L, Globulin 3.2, Albumin/Globulin Ratio 0.9, Triglycerides 167, Cholesterol 146, LDL Cholesterol 82, VLDL Cholesterol 33, HDL Cholesterol 31 L 08/02/23 06:31: POC Glucose 170 H 08/02/23 12:14: POC Glucose 245 H Physical Exam Narrative General: Alert, Oriented x3, Cooperative, No apparent distress HEENT: Atraumatic, PERRLA, EOMI, Normocephalic Oral: Moist Mucosa Neck: Supple, No JVD Lungs: Clear to auscultation, Normal air movement, No rhonchi, No wheeze, No rales Cardiovascular: Regular rate, Regular Rhythm, Normal S1, Normal S2, No murmurs Abdomen: Soft, Non Tender, Non-Distended, No Hepato-splenomegaly Extremities: No edema, Capillary Refill Less than 3 Seconds Skin: No rashes, No breakdown Musculoskeletal: No Tenderness to Palpation of Joints or Extremities Neurological: Cranial nerves II-XII grossly intact, Motor Exam 5/5 strength throughout, Sensory exam intact to light touch and pain Psych/Mental Status: Normal Affect, Appropriate Assessment & Plan Assessment/Plan (1) Chest pain: PLAN: Plan 1. Chest pain/CAD status post stent/HTN/HLD/A-fib ? Given his positive stress test we will consult cardiology for heart cath in the morning ? He did recently restart his home medications so it is possible that he has in- stent stenosis ? Continue with his home aspirin, and Crestor ? Depending on cath results will have further recommendations for medical therapy ?He declined anticoagulation due to the admitting physician, he does have an appointment with cardiology as an outpatient in October 2. DM2 ? Had discontinued his home medications for over 12 months, restarted recently ? Continue with insulin ? Accu-Cheks ACHS ? We will monitor make adjustments as necessary ? His A1c in June was 11.2 and was started on Glyxambi 3. Anxiety/depression ? Stable, he is not taking any medications currently I do recommend that he follow-up as an outpatient to be restarted on medications 4. GERD ? Stable ? Continue with PPI DVT: Lovenox Charges/Coding Visit Charges Inpatient E&M: 27510 Subs Hosp L2 08/02/23 1548 <Electronically signed by Marcell Snow MD> Cosigner Signature (if applicable): CC: ~ Signed Work Phone: 1([phone] 181-381001-28-2024 Progress note Author James Miller August 01, 2023 1:06pm Note Date/Time August 01, 2023 1 :06pm [facility] System Medical Records Department [address] [place] [id number] Progress Note - Hospitalist 08/01/23 1303 MR#: [id number] Acct: [id number] Name: HARRY CORTES Rep #:[id number] : 1970 52 From: James Mooney PCP: Marylu Mckoy, DO Status:ADM I NO Location: [place] [address] Hospitalist Note Patient was admitted curber today. Vitals, labs, H&P and management plan reviewed. Patient has history of emphysema and is still active smoker. Complain of chest tightness in the chest radiation to interscapular area mainly left scapular areawith diaphoresis nausea shortness of breath and lightheadedness. Has history ofCAD status post 2 stents in February 2019. Repeat EKG shows sinus bradycardia 59 bpm, no significant ST-T changes. QTc 445ms. 3 serial troponin enzymes are negative. ACS ruled out. Patient is scheduled for stress test tomorrow AM. Atypical chest pain. Historyof CAD, PAF. Diabetes mellitus type 2 and COPD/emphysema. Advised follow-up with pulmonary clinic for PFT as an outpatient. 08/01/23 1306 <Electronically signed by James Miller MD> Cosigner Signature (if applicable): CC: ~ Signed Work Phone: 1([phone] 593-529901-28-2024 History and physical note Author Marcie London August 01, 2023 6:34am Note Date/Time August 01, 2023 6 :35am [facility] System Medical Records Department [address] [facility] [place] [address] H&P Exam - Hospitalist 08/01/23 0632 MR#: [id number] Acct: [id number] Name: HARRY CORTES Jr. Rep #:[id number] : 1970 52 From: Marcie London MD PCP: Marylu Mckoy, Status:REG E R Location: ED HPI - General General Date of Admission: 08/01/23 Date of Service: 08/01/23 Chief Complaint: Chest pain. HPI Narrative The patient is a 52 y/o M w/ PMHx: AMITA not compliant with PAP therapy, diabetes mellitus type II, CAD s/p NSTEMI 09/2018 s/p PCI mid diagonal, 02/2019 PCI circumflex, Chronic back pain following with pain management, HTN, HLD, PAF, Tobacco use, recent 07/29/23 Cardiology visit during which patient reported he stopped all of his medication including his antiplt therapies secondary to beingtired of taking them with noted preference per cardiology to obtain a surveillance stress test in addition to strong encouragement to consider anticoagulation given his [id number] score of 2 who now presents to the [facility] 08/01/23 with history of onset of chest discomfort described as a tightness inthe substernal region with associated nausea, dyspnea, lightheadedness and diaphoresis with self administration of nitroglycerin x 3 at home with EMS call and administration of full-strength aspirin therapy upon their arrival. He notes being chest pain-free at this time. Workup in the ED included T97.6, heart rate 74, BP 99/59, respiratory rate 15, 95% on room air, CBC with WBC 12, hemoglobin 14.4, platelet 160 with left shift, BMP with glucose 538 otherwise not marked appearing, troponin 18, EKG with sinus rhythm with mild QT prolongation with QTc 464 with no acute evidence of ischemia, chest x-ray with no acute cardiopulmonary finding with final read pending. In the ED patient ministered [place]ve 1 tablet p.o. x 1. PFSH Medical History Atherosclerosis of cheesh-na coronary artery of cheesh-na heart without angina pectoris Chronic pain Depression DM2 (diabetes mellitus, type 2) Erectile dysfunction Essential hypertension Herniated disc History of non-ST elevation myocardial infarction (NSTEMI) (09/14/18) HLD (hyperlipidemia) Hypokalemia Impingement of left shoulder Impingement of right shoulder Paroxysmal atrial fibrillation Tobacco use Home Medications aspirin 81 mg tablet,delayed release 81 mg PO DAILY #90 tabs 07/29/23 [Rx Last Taken Unknown] brexpiprazole 0.5 mg tablet (Rexulti) 1 mg PO DAILY 07/29/23 [History Last Taken Unknown] nitroglycerin 0.4 mg sublingual tablet 0.4 mg sublingual Q5M PRN Cardiac/Chest Pain #1 BOTTLE 07/29/23 [Rx Last Taken Unknown] omeprazole 20 mg capsule,delayed release 20 mg PO DAILY 07/29/23 [History Last Taken Unknown] rosuvastatin 10 mg tablet (Crestor) 10 mg PO DAILY 07/29/23 [History Last Taken Unknown] empagliflozin 25 mg-linagliptin 5 mg tablet (Glyxambi) 1 tab PO DAILY 08/01/23 [History Last Taken Unknown] meloxicam 15 mg tablet 15 mg PO DAILY 08/01/23 [History Last Taken Unknown] Allergy/AdvReac Type Severity Reaction Status Date / Time pregabalin [From Lyrica] AdvReac Itching Verified 08/01/23 04:54 Family History Father Esophageal cancer Diabetes Myocardial infarction Mother Arthritis Diabetes Surgical History H/O arthroscopic knee surgery History of arthroscopic knee surgery History of back surgery History of coronary artery stent placement (02/13/19) s/p back Social History (Updated 08/01/23 @ 06:[address] Marcie London MD) household members: spouse Smoking Status: Current every day smoker tobacco type: cigarettes Smoking packsper day: 1 Smoking cigarettes per day: 20.0 Tobacco: How many years used: 30 alcohol intake: current alcohol intake frequency: a few times a week Alcohol type: beer substance use type: does not use what type of physical activity do you participate in: none ROS ROS Narrative Admission Review of Systems: CONSTITUTIONAL: No weight loss, fever, chills, + weakness or fatigue. HEENT: Eyes: No visual loss, blurred vision, double vision or yellow sclerae. Ears, Nose, Throat: No hearing loss, sneezing, congestion, runny nose or sore throat. SKIN: No rash or itching, lesions, wounds. CARDIOVASCULAR: + Chest pain. No palpitations, edema, orthopnea, syncopal events. RESPIRATORY: + Dyspnea. No cough or sputum, wheezing, hemoptysis. GASTROINTESTINAL: + Nausea. No vomiting or diarrhea, abdominal pain, melena, BRBPR. GENITOURINARY: No dysuria, frequency, urgency or retention. NEUROLOGICAL: No headache, dizziness, syncope, paralysis, ataxia, numbness or tingling in the extremities, focal weakness, change in bowel or bladder control,seizure. MUSCULOSKELETAL: + muscle, back pain, joint pain or stiffness. HEMATOLOGIC: No anemia, bleeding or bruising. LYMPHATICS: No enlarged nodes. No history of splenectomy. PSYCHIATRIC: + Anxiety and Depression. ENDOCRINOLOGIC: + Reports of sweating. No cold or heat intolerance. No polyuria or polydipsia. ALLERGIES: No history of asthma, hives, eczema or rhinitis. Vital Signs Vital Signs Vital Signs: 08/01/23 04:50 08/01/23 04:50 08/01/23 05:05 Temperature 97.6 F L Temperature Source Temporal Pulse Rate 74 Respiratory Rate 15 Respiratory Effort Normal Blood Pressure 99/59 L Blood Pressure Mean 72 Pulse Ox 95 Oxygen Delivery Method Room Air Room Air 08/01/23 06:27 08/01/23 05:49 Temperature Temperature Source Pulse Rate 67 65 Respiratory Rate 15 16 Respiratory Effort Blood Pressure 107/68 Blood Pressure Mean 81 Pulse Ox 97 97 Oxygen Delivery Method Room Air Weight Weight: 179 lb 10.828 oz Body Mass Index (BMI) 25.7 Physical Exam Narrative Physical Examination: General: Awake, alert, oriented x 3 and cooperative, seated upright in the ED bed in no apparent distress, chest pain-free. Skin: Normal color, normal turgor, no icterus, no cyanosis. HEENT: AT/NC, EOMI, PERRLA, MMM, difficult to discern carotid bruits and JVD given notable facial hair. Lungs: Mildly diminished, greater bases, proper effort, no rales, ronchi or wheezing. Heart: Regular rate and rhythm; no gallop, rub audible. Abdomen: Soft, NTTP, ND, normal BS, no HSM. Extremities: No cyanosis, clubbing, or edema. Neurological: Patient awake, alert, oriented as noted, cognitive function intact; pupils equally reactive to light and accommodation, cranial nerves II-XII grossly normal, moving all 4 extremities, no focal deficits, strength moderately global decrease secondary to acute presentation complaints. Psychiatric: Affect appears fatigued, no acute evidence of depressive or anxietyfeelings but does have underlying history. Results Lab / Micro Data 08/01/23 05:04 08/01/23 05:04 Labs: Laboratory Results - last 24 hr 08/01/23 05:04: WBC 12.0 H, RBC 4.97, Hgb 14.4, Hct 44.2, MCV 88.9, MCH 29.0, MCHC 32.6, RDW Std Deviation 43.8, RDW Coeff of Sarahi 13.6, Plt Count 160, MPV 11.5, Immature Gran % (Auto) 0.800, Neut % (Auto) 65.5, Lymph % (Auto) 22.6, Gordon % (Auto) 8.2, Eos % (Auto) 2.2, Baso % (Auto) 0.7, Absolute Neuts (auto) 7.9 H, Absolute Lymphs (auto) 2.71, Nucleated RBC % 0, Sodium 136, Potassium 3.6, Chloride 107, Carbon Dioxide 24.0, Anion Gap 5, BUN 15, Creatinine 1.02, Estim Creat Clear Calc 88.47, Est GFR (MDRD) Af Amer 99, Est GFR (MDRD) Non-Af 82, BUN/Creatinine Ratio 14.7, Glucose 538 H*, Calcium 9.3, Troponin I High Sens18 Assessment & Plan Assessment/Plan (1) Chest pain: PLAN: Plan The patient is a 52 y/o M w/ PMHx: AMITA not compliant with PAP therapy, diabetes mellitus type II, CAD s/p NSTEMI 09/2018 s/p PCI mid diagonal, 02/2019 PCI circumflex, Chronic back pain following with pain management, HTN, HLD, PAF, Tobacco use, recent 07/29/23 Cardiology visit during which patient reported he stopped all of his medication including his antiplt therapies secondary to beingtired of taking them with noted preference per cardiology to obtain a surveillance stress test in addition to strong encouragement to consider anticoagulation given his [id number] score of 2 who now presents to the [facility] E[facility] 08/01/23 with history of onset of chest discomfort described as a tightness inthe substernal region with associated nausea, dyspnea, lightheadedness and diaphoresis. #1. Chest Pain: EKG in ED with sinus rhythm with no acute evidence of ischemia with mildly prolonged QT, CXR w/ no acute cardiopulmonary finding, initial trop 18. Will admit to PCU, place on a monitored bed to assure no acute myocardial infarction with serial cardiac enzymes and EKGs. Will restart aspirin as well as statin therapy as patient had unfortunately discontinued these previously. Magnesium level requested. FLP in AM. If repeat serial cardiac enzymes and EKGs remain stable we will pursue and cardiac stress testing on Wednesday otherwiseif enzymes rise will obtain cardiology consultation for cardiac catheterization consideration as patient certainly would be high risk given his history and not been taking any of the appropriate medications. ASA, NG, morphine. #2. CAD, Ischemic cardiomyopathy: s/p PCI-VENANCIO mid D1 09/14/2018; PCI-VENANCIO mid LCX02/13/2019, will restart aspirin, lovastatin, hold on hypertensive regimen given low blood pressure and per review of trending at least since 2019 patient does not appear to have significant hypertension. Most recent echocardiogram noted 01/17/2019 with EF 45 to 50%, stage I diastolic dysfunction, mild global hypokinesis LV, trivial TVI, RVSP 23 mmHg. #3. PAF: Patient w/ [id number] score of 2 but has declined anticoagulant therapy although in the past had previously been on Xarelto, not on rate or rhythm agent, encourage continued follow-up outpatient with cardiology. #4. Diabetes mellitus type II, uncontrolled with significant hyperglycemia: Patient previously noted to be an uncontrolled diabetic, previously on Trulicityhowever he discontinued it secondary to how he felt, previously been on insulin but had declined to restart this in the past. He notes he was recently started on glyxamibi 25 mg. Most recent hemoglobin A1c noted 06/09/2023 11.2%. Will initiate on low-dose twice daily long-acting, once appropriate and not n.p.o. transition to ADA diet, accu checks w/ ISS. Nutrition consulted for education and teaching. #5. Anxiety and depression: Patient remotely had [facility] also notable for prior duloxetine. From current records patient is not on any regimen but does have ongoing symptoms therefore would benefit strongly from follow-up with PCP and consideration of regimen resumption. #6. Hypertension: Noted chart history and previously in 2019 and 2019 patient with elevated blood pressures above goal however more recently blood pressures have been appropriate or on the low end, not currently on any hypertensive regimen, continue to monitor. #7. Hyperlipidemia: Will restart home statin regimen. AM FLP. #8. Tobacco Abuse: Encouraged cessation, inpatient consultation per RT, NR if desired. #9. Chronic back pain: Status post prior lumbar back surgery, following with pain management, #10. GERD: We will continue patient home PPI. #11. AMITA: Noncompliant with PAP therapy. #12. DVT prophylaxis: Lovenox. Charges/Coding Visit Charges Inpatient E&M: 59404 Init Hosp L3 08/01/23 0634 <Electronically signed by Marcie London MD> Cosigner Signature (if applicable): CC: Dr. Marcie London MD; Marylu Mckoy DO~ Signed Work Phone: 1(732) 525-802001-28-2024 Discharge summary Author Stan Mayers August 01, 2023 6:31am Note Date/Time August 01, 2023 5 :12am [facility] Medical Records Department [address] [place] [address] Emergency Department Summary 08/01/23 MR#: [id number] Acct: [id number] Name: HARRY CORTES Jr. Rep #:[id number] : 1970 52 From: Stan Mayers MD PCP: Marylu Mckoy, Status:REG E R Location: ED HPI History of Present Illness Chief Complaint: Chest Pain Onset/Context/Timing Onset: Today Activity at onset: sudden Timing: Intermittent Quality: Positive for Tightness Location: Substernal Current Severity: Gone Maximum Severity: Moderate Worsened By: Nothing Relieved By: NTG (Took total of 3 5 minutes apart) Associated Symptoms: Positive for Nausea, Diaphoresis, Dyspnea and Lightheadedness; Negative for Vomiting, Cough, Fever, Acid Reflux or Palpitations Narrative Narrative: Patient is a 52-year-old male who has history of atherosclerotic heart disease with stent placement diagonal and circumflex. The circumflex is a large dominant vessel. The circumflex was stented by Dr. Lukasz Marshall February 2019. Patient was also noted to have nonsignificant disease in the RCA. EF was preserved. Patient states he was sitting when he developed tightness in his chest radiatingto his back with diaphoresis nausea shortness of breath and lightheadedness. Patient took a total of 3 nitroglycerin. Patient is presently pain-free. Patient is a smoker 1 pack/day. He does have history essential hypertension, hyperlipidemia, type 2 diabetes. He does have a history of GERD. He states this pain is different than his GERD. When he presented with his chest discomfort February 2019 he had an atypical presentation with neck and left shoulder pain. Patient denies black or maroon-colored stool. He denies abdominal pain. Deniesintolerance to greasy or fried foods. Patient denies headache, visual, ocular auditory symptoms. Patient denies dyspnea Clinisync distribution, orthopnea or PND. Patient denies urologic symptoms. He takes a baby aspirin a day. He was given 4 baby aspirin in route by squad. Prior Similar Symptoms: Yes Recent Illness/Hospitalization: No CVD Risk Factors: Positive for Hypertension, Diabetes, Hypercholesterolemia and Smoking PE Risk Factors: Negative for Recent Travel/Surgery, Recent Immobilization, Prior DVT or PE, Cancer or OCP + Smoking + >/=35 TAD Risk Factors: Positive for Hypertension; Negative for Marfan's Syndrome or Family History PFSH PFSH Medical History Abscess of neck (09/2020) Atherosclerosis of cheesh-na coronary artery of cheesh-na heart without angina pectoris Chronic pain Depression DM2 (diabetes mellitus, type 2) Erectile dysfunction Essential hypertension Herniated disc History of non-ST elevation myocardial infarction (NSTEMI) (09/14/18) HLD (hyperlipidemia) Hypokalemia Impingement of left shoulder Impingement of right shoulder Left shoulder pain Paroxysmal atrial fibrillation Tobacco use Home Medications aspirin 81 mg tablet,delayed release 81 mg PO DAILY #90 tabs 07/29/23 [Rx Last Taken Unknown] brexpiprazole 0.5 mg tablet (Rexulti) 1 mg PO DAILY 07/29/23 [History Last Taken Unknown] nitroglycerin 0.4 mg sublingual tablet 0.4 mg sublingual Q5M PRN Cardiac/Chest Pain #1 BOTTLE 07/29/23 [Rx Last Taken Unknown] omeprazole 20 mg capsule,delayed release 20 mg PO DAILY 07/29/23 [History Last Taken Unknown] rosuvastatin 10 mg tablet (Crestor) 10 mg PO DAILY 07/29/23 [History Last Taken Unknown] Allergy/AdvReac Type Severity Reaction Status Date / Time pregabalin [From Lyrica] AdvReac Itching Verified 08/01/23 04:54 Family History Father Esophageal cancer Diabetes Myocardial infarction Mother Arthritis Diabetes Surgical History H/O arthroscopic knee surgery History of arthroscopic knee surgery History of back surgery History of coronary artery stent placement (02/13/19) s/p back Social History Smoking Status: Current every day smoker tobacco type: cigarettes Tobacco: How many years used: 30 alcohol intake: current alcohol intake frequency: a few times a week Alcohol type: beer substance use type: does not use what type of physical activity do you participate in: none ROS ROS ED Constitutional Constitutional ED: Denies chills, fever(s), subjective, sweats or weight loss Eyes Eyes: Reports none ENT ENT ED: Denies ear pain, rhinorrhea or sore throat Cardiovascular Cardiovascular: Reports as per HPI; Denies orthopnea or paroxysmal nocturnal dyspnea Respiratory/Chest Respiratory/Chest: Reports dyspnea; Denies cough, dyspnea on exertion, orthopneaor paroxysmal nocturnal dyspnea Gastrointestinal Gastrointestinal: Denies abdominal pain, diarrhea, melena or vomiting Musculoskeletal Musculoskeletal: Reports back pain; Denies arthralgias, myalgias or neck pain Integumentary Reports rash Endocrine Endocrinology: Denies cold intolerance, heat intolerance or polydipsia Hematologic/Lymphatic Hematologic/Lymphatic: Denies easy bleeding or easy bruising EXAM Physical Exam Const Vital Signs: 08/01/23 04:50 08/01/23 04:50 08/01/23 05:05 Temperature 97.6 F L Temperature Source Temporal Pulse Rate 74 Respiratory Rate 15 Respiratory Effort Normal Blood Pressure 99/59 L Blood Pressure Mean 72 Pulse Ox 95 Oxygen Delivery Method Room Air Room Air 08/01/23 06:27 Temperature Temperature Source Pulse Rate 67 Respiratory Rate 15 Respiratory Effort Blood Pressure 107/68 Blood Pressure Mean 81 Pulse Ox 97 Oxygen Delivery Method Positive well nourished and well developed General Appearance ED: well developed and NAD HEENT Reports moist mucous membranes normocephalic and atraumatic Eyes PERRL and EOMs intact bilaterally General Eye ED: Negative for pale conjunctiva or scleral icterus Neck supple and no JVD Chest Wall inspection of chest normal and palpation of chest normal Resp normal respiratory effort and clear to auscultation bilaterally Cardio regular rate, regular rhythm, S1 normal heart sound, S2 normal heart sound and no murmurs GI normal to inspection, nondistended, normoactive bowel sounds, soft to palpation,non-tender, non-distended and hepatosplenomegaly; Negative for no masses Back/Spine no CVA tenderness and no thoracic nor lumbar tenderness Extremity normal to inspection General Extremety ED: Negative for edema, pulses abnormal or tenderness General Extremity: Negative for edema or pulses abnormal Neuro oriented x3, no sensory deficits noted and gait normal Psych mental status grossly normal Skin no rashes or lesions noted and no wounds MDM MDM MDM Narrative Medical decision making narrative: Differential diagnoses include cardiac versus noncardiac pain. Noncardiac wouldinclude reflux, gastritis, peptic ulcer disease, biliary disease and pulmonary disease. Since patient received aspirin in the squad prior to arrival he was not given additional dose of aspirin. EKG was obtained to rule out any acute ischemia. Chest x-ray to assess lung parenchyma mediastinum. CBC to rule out anemia. Basic metabolic panel to assess renal function. Cardiac ears obtained to rule out coronary disease. Patient received a [place] tablet for his back pain, which is a chronic issue. History & Record Review Additional record(s) reviewed:: Prior inpatient record, Prior outpatient record and Prior ED visit Lab Data Attestation: I reviewed the patient's lab results. Lab results narrative: White count is slightly elevated with a normal differential and H&H. Basic metabolic panel is marked for glucose of 538 with a normal CO2 and anion gap. First troponin is normal. Labs: Laboratory Results - last 24 hr 08/01/23 05:04 WBC 12.0 H RBC 4.97 Hgb 14.4 Hct 44.2 MCV 88.9 MCH 29.0 MCHC 32.6 RDW Std Deviation 43.8 RDW Coeff of Sarahi 13.6 Plt Count 160 MPV 11.5 Immature Gran % (Auto) 0.800 Neut % (Auto) 65.5 Lymph % (Auto) 22.6 Gordon % (Auto) 8.2 Eos % (Auto) 2.2 Baso % (Auto) 0.7 Absolute Neuts (auto) 7.9 H Absolute Lymphs (auto) 2.71 Nucleated RBC % 0 Sodium 136 Potassium 3.6 Chloride 107 Carbon Dioxide 24.0 Anion Gap 5 BUN 15 Creatinine 1.02 Estim Creat Clear Calc 88.47 Est GFR (MDRD) Af Amer 99 Est GFR (MDRD) Non-Af 82 BUN/Creatinine Ratio 14.7 Glucose 538 H* Calcium 9.3 Troponin I High Sens 18 Radiography Chest X-Ray - ED: 1 View and Read by ED Physician (Single view portable chest x- ray reveals limited inspiratory volume. Cardiac silhouette size normal. Mediastinum normal. Lung parenchyma is normal. Osseous structures are unremarkable. This independent reviewed interpreted by me at 0517) EKG Initial EKG: Attestation: I personally reviewed and interpreted this EKG as follows: Interpretation: Sinus Rhythm (Rate is 81. [place] interval is 140 ms. QRS duration 84 ms. QT duration 400 ms. Aurora is normal. QTc is 464. There is prolongation of the QT interval. There is no ossific changes noted which I believe is artifact since is only seen in some leads and not meant adjacent leads.) Management Discussion w/another healthcare provider: Hospitalist (Review of most recent cardiac office visit notes indicates patient discontinued his cardiac meds and has not been compliant with insulin either. Plan is observation and cardiology consult.) Treatment and Re-Evaluation :: Patient received insulin for his elevated blood sugar of 538. Discharge Plan Triage Chief Complaint: Chest Pain ED Provider: Stan Mayers Dx/Rx/DC Orders Clinical Impression: Angina at rest, History of coronary artery stent placement, Essential hypertension, HLD (hyperlipidemia), 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, Type 1 diabetes mellitus with hyperglycemia, without long-term current use of insulin Prescriptions: No Action omeprazole 20 mg capsule,delayed release(DR/EC) 20 mg PO DAILY Rexulti 0.5 mg tablet 1 mg PO DAILY rosuvastatin [Crestor] 10 mg tablet 10 mg PO DAILY nitroglycerin 0.4 mg tablet, sublingual 0.4 mg sublingual Q5M PRN (Reason: Cardiac/Chest Pain) Qty: 1 3RF aspirin 81 mg tablet,delayed release (DR/EC) 81 mg PO DAILY Qty: 90 3RF Primary Care Provider: Marylu Mckoy Referrals: Marylu Mckoy, [Primary Care Provider] - Disposition Disposition: Acute Care Hospital [facility] What to do if you have Problems For any increased pain, shortness of breath, bleeding, nausea or vomiting, chestpain, or any unexpected problems, contact your Primary Care Provider. Call [facility] ([phone]) or report to the closest Emergency Room. Call 911 if necessary. 08/01/23630 <Electronically signed by Stan Mayers MD> Cosigner Signature (if applicable): CC: Marylu Mckoy DO ~ Signed Work Phone: 1([phone] Kiser August 20, 2022 10:50pm Note Date/Time August 20, 2022 9:15pm Health System Medical Records Department [address] [place] [address] Emergency Department Summary 08/20/22 MR#: [id number] Acct: [id number] Name: HARRY CORTES Jr. Rep #:[id number] : 1970 51 From: Jeffery Kiser MD PCP: Dr. Michael De Jesus MD Status:R EG ER Location: ED HPI History of Present Illness Chief Complaint: Chest Pain Narrative Narrative: Patient presents with chest pain and tightness, also some back pain that resolved. He also has chronic neuropathy and its been acting out more. No fevers or chills he is denying a cough. He had chest tightness but no shortnessof breath. PFSH PFS Medical History Abscess of neck (09/2020) Atherosclerosis of [place] coronary artery of che[place]na heart without angina pectoris Chronic pain Depression DM2 (diabetes mellitus, type 2) Erectile dysfunction Essential hypertension Herniated disc History of non-ST elevation myocardial infarction (NSTEMI) (09/14/18) HLD (hyperlipidemia) Hypokalemia Paroxysmal atrial fibrillation Tobacco use Home Medications tiagabine 4 mg tablet See Rx Instructions .Route .COMPLEX nerve pain 02/17/16 [History Last Taken 09/30/20] metformin 500 mg tablet 1,000 mg PO BID sugar #360 tabs 06/02/21 [Rx Last Taken Unknown] doxycycline hyclate 100 mg capsule 100 mg PO BID #10 caps 08/20/22 [Rx Last Taken Unknown] Allergy/AdvReac Type Severity Reaction Status Date / Time pregabalin [From Lyrica] AdvReac Itching Verified 08/20/22 19:42 Family History Father Esophageal cancer Diabetes Myocardial infarction Mother Arthritis Diabetes Surgical History H/O arthroscopic knee surgery History of arthroscopic knee surgery History of back surgery History of coronary artery stent placement (02/13/19) s/p back Social History Smoking Status: Current every day smoker tobacco type: cigarettes Tobacco: How many years used: 30 alcohol intake: current alcohol intake frequency: a few times a week Alcohol type: beer substance use type: does not use what type of physical activity do you participate in: none ROS ROS ED ROS Narrative Past medical history: Reviewed, includes CAD status post stenting, tobacco abuse, diabetes, hypertension, hypercholesterolemia Medications: Reviewed Social history: Noncontributory Review of systems: All systems negative except as indicated General: No fever Eyes: No visual changes ENT: No upper airway congestion, normal voice Neck: No neck pain Cardiovascular: As in HPI Respiratory: As in HPI Gastrointestinal: No abdominal pain, nausea vomiting or diarrhea Genitourinary: No dysuria Musculoskeletal: Denies myalgias no difficulty with ambulation Skin: No rash Neurological: No memory loss, confusion or any focal weakness Psych: No recent behavioral changes Hematologic: No easy bleeding or easy bruising EXAM Physical Exam Narrative Exam Narrative: Physical exam General: Patient appears anxious Head: Normocephalic, Atraumatic Eyes: Conjunctiva not pale ENT: Moist mucous membranes Neck: Supple, Nontender, No lymphadenopathy Cardiovascular: Regular rate, Regular rhythm, no obvious murmur Respiratory: No distress, CTA bilaterally Abdomen: Soft, Nontender, Nondistended Back: Nontender, Normal Inspection. Negative for: CVA tenderness he does have some reproducible paraspinal mid thoracic pain. Extremities: Nontender, No edema Skin: Normal color, No rash Neurological: Alert, Normal Strength, Normal Sensation Psychological: Normal affect Const Vital Signs: 08/20/22 19:42 08/20/22 21:03 Temperature 97 F L Temperature Source Temporal Pulse Rate 97 Respiratory Rate 14 Blood Pressure 132/80 H Blood Pressure Mean 97 Pulse Ox 98 Oxygen Delivery Method Room Air Room Air [facility] Lab Data Labs: Laboratory Results - last 24 hr 08/20/22 08/20/22 08/20/22 20:01 20:01 20:01 WBC 11.4 H RBC 5.44 Hgb 16.4 Hct 49.5 MCV 91.0 MCH 30.1 MCHC 33.1 RDW Std Deviation 42.7 RDW Coeff of Sarahi 13.1 Plt Count 181 MPV 10.8 Immature Gran % (Auto) 0.700 Neut % (Auto) 61.0 Lymph % (Auto) 27.8 Gordon % (Auto) 7.3 Eos % (Auto) 2.3 Baso % (Auto) 0.9 Absolute Neuts (auto) 7.0 Absolute Lymphs (auto) 3.18 Nucleated RBC % 0 D-Dimer Quant (PE/DVT) < 0.27 L Sodium 138 Potassium 4.0 Chloride 105 Carbon Dioxide 25.0 Anion Gap 8 BUN 14 Creatinine 0.96 Estim Creat Clear Calc 95.05 Est GFR (MDRD) Af Amer 106 Est GFR (MDRD) Non-Af 87 BUN/Creatinine Ratio 14.5 Glucose 418 H Calcium 9.2 Troponin I High Sens 12 08/20/22 22:06 WBC RBC Hgb Hct MCV MCH MCHC RDW Std Deviation RDW Coeff of Sarahi Plt Count MPV Immature Gran % (Auto) Neut % (Auto) Lymph % (Auto) Gordon % (Auto) Eos % (Auto) Baso % (Auto) Absolute Neuts (auto) Absolute Lymphs (auto) Nucleated RBC % D-Dimer Quant (PE/DVT) Sodium Potassium Chloride Carbon Dioxide Anion Gap BUN Creatinine Estim Creat Clear Calc Est GFR (MDRD) Af Amer Est GFR (MDRD) Non-Af BUN/Creatinine Ratio Glucose Calcium Troponin I High Sens 11 Radiography Diagnostic Testing: Clinical Impression(s) from Imaging Studies Chest X-Ray 08/20/22 20:00 IMPRESSION: 1. Curvilinear areas of hazy density at both lung bases, this can be contributed by petrol shadows, however not present on prior exams, alternative would be development of atypical interstitial infiltrate at the lung bases. 2. No consolidation, congestive failure or effusion. Electronically Signed: Golden English MD at 20:19 EST , Chest x-ray read by me as normal EKG Initial EKG: Comments: Sinus rhythm with a rate of 86. Normal [place] and QTc intervals. No ischemic changes. Interpreted by emergency doctor Treatment and Re-Evaluation Narrative: A. Problems addressed: I talked the patient about his uncontrolled diabetes, apparently he is on quite a few medications and he does not take any of them. Isuspect there seems to be some sort of neuropathy especially with his generalized aches especially tingling in his fingers and toes. He is on Neurontin he is encouraged to take it, he is encouraged to maintain his blood sugars normal. The chest x-ray read by me is normal the radiologist thought there could be an early pneumonia with his symptoms I believe it is reasonable to treat with doxycycline. Otherwise I believe the patient can be safely discharged. B. Amount and/or complexity of the data 1. I talked to the in the room, blood work see above interpreted by me 2. Independent interpretation of test Telemetry: Sinus rhythm with a rate in the 80s without ectopy C. Risk of complications and/or morbidity Differential diagnosis: Coronary artery disease, patient's EKG and troponin werenonremarkable. I thought about PE however the patient has no pleuritic component, no strain pattern on EKG no hypoxia or tachycardia. I have thought about admitting the patient with his diabetes and chest pain however I believe since he has thoroughly been worked up and ruled out for an acute MN he can get an outpatient work-up. I talked to his about this Again I encouraged him to control his diabetes and significant hyperglycemia Discharge Plan Triage Chief Complaint: Chest Pain ED Provider: Jeffery Kiser Dx/Rx/DC Orders Clinical Impression: Acute hyperglycemia, Chest pain, Neuropathy, Pneumonia Instructions: ED Chest Pain, Noncardiac, ED Diabetic Hyperglycemia Prescriptions: New doxycycline hyclate 100 mg capsule 100 mg PO BID Qty: 10 0RF No Action tiagabine 4 MG tablet See Rx Instructions .ROUTE .COMPLEX Rx Instructions: 4 mg breakfast 8mg qhs metformin 500 mg tablet 1,000 mg PO BID Qty: 360 1RF Rx Instructions: must hold for 3 days Primary Care Provider: Michael De Jesus Referrals: Michael De Jesus MD [Primary Care Provider] - 3-5 Days Disposition Disposition: Home, Self Care What to do if you have Problems For any increased pain, shortness of breath, bleeding, nausea or vomiting, chestpain, or any unexpected problems, contact your Primary Care Provider. Call [facility] ([phone]) or report to the closest Emergency Room. Call 911 if necessary. 08/20/220 <Electronically signed by Jeffery Kiser MD> Cosigner Signature (if applicable): CC: Dr. Michael De Jesus MD ~ Signed Work Phone: [phone]) 667-481407-22-2022 NoteHNO ID: [id number] Author: Sindi Blackman APRN.SAFETY ADVISOR Service: ? Author Type: Nurse Practitioner Type: Progress Notes Filed: 01/23/2022 1:33 PM Note Text: Summary: F/u DATE: January 23, 2022 This video visit was performed via [employer] video visit. Patient consented to receive health care services via virtual visit for this encounter Provider Location: Non-[facility] Patient Location: Patient Home or Place of Residence Risks, benefits, and limitations of receiving care virtually were discussed with the patient. The patient expressed understanding and is willing to proceed. Chief Complaint: Pain History of Present Illness: Harry Cortes is a 51 year old year old male being seen at [facility] for a evaluation and/or management of their chronic pain. The patient last had an office visit on 05/26/21, virtual visit on 09/23/21. He is scheduled for a virtual visit today. His pain level has remained the same since the last visit. VAS 8/10 Chief complaint: LB, neck, shoulder pain Location: LB, neck, shoulder pain Timing: constant Severity: moderate, severe at times Quality: aching Radiation: b/l arms/legs(L>R) Numbness: L side knee down Burning: denies Tingling: left arm at times Weakness: left arm and left leg Falls: denies Alleviating Factors: laying down Aggravating Factors: all daily activities The patient denies any bowel or bladder dysfunction denies Since the last office visit the patients medical history has not changed. The patient denies any new diagnoses, hospital visits or ER visits. The patient is currently prescribed Gabatril from our office. The last dose was taken this morning. The medications are effective. The patient denies nausea, vomiting, constipation,rashes, drowsiness,weight gain, weight loss,dizziness,and fatigue. The OARRS report has been reviewed and is consistent with the patients medical history and medication intake. Last Urine Drug Screen (UDS): 05/26/2021. The UDS has been reviewed and is NOT consistent with medications prescribed. (+)METH. REVIEW OF SYSTEMS: GENERAL: No weight loss, malaise or fevers RESPIRATORY: Negative for cough, hemoptysis, wheezing, COPD, dyspnea or shortness of breath. CARDIOVASCULAR: Negative for chest pain, leg swelling, hypertension, CHF or palpitations GI: No nausea, vomiting, or diarrhea. MUSCULOSKELETAL: (+) for joint pain or swelling, back pain or muscle pain. PAST MEDICAL HISTORY Diagnosis Date - Anxiety - Arthritis - Atrial fibrillation (HCC) - Back pain - Chicken pox - Depression - Depression - DM (diabetes mellitus) (HCC) - GERD (gastroesophageal reflux disease) - HTN (hypertension) - HTN (hypertension) - Hypercholesterolemia - AMITA (obstructive sleep apnea) - Pneumonia - Scarlet fever - Tobacco abuse PAST SURGICAL HISTORY Procedure Laterality Date - KNEE 1-2 VIEWS L - LUMBAR - PAST SURGICAL HISTORY OF , 1999 knee bilateral a/s - PAST SURGICAL HISTORY OF 07/05/2009 lumbar laminectomy no fusion - PAST SURGICAL HISTORY OF 07/05/2014 lumbar/ cervical pain injection- muliple. - PAST SURGICAL HISTORY OF cardiac stents FAMILY HISTORY Problem Relation Age of Onset - Diabetes Mother - other (dm) Mother - other (fibromyalgia) Mother - other (lupus) Mother - Diabetes Father - Cancer Father esophageal - Diabetes Maternal Grandmother Social History Tobacco Use - Smoking status: Current Every Day Smoker Packs/day: 1.00 Years: 0.20 Pack years: 0.20 Types: Cigarettes - Smokeless tobacco: Current User Types: Snuff Last attempt to quit: 03/05/2015 - Tobacco comment: 09/03/15 Pt had smoked for 10 years AND quit for 20 yrs. Vaping Use - Vaping Use: Never used Substance Use Topics - Alcohol use: Yes Comment: rarely - Drug use: No Allergies: Lyrica [Pregabalin] Itching Current Outpatient Medications Medication Sig - tiaGABine (GABITRIL) 4 mg tablet Take by mouth. - tiaGABine (GABITRIL) 4 mg tablet Take 1 tablet by mouth as directed. Take one tablet in AM AND two tablets in PM. - amitriptyline (ELAVIL) 10 mg tablet amitriptyline 10 mg tablet - diazePAM (VALIUM) 10 mg tablet diazepam 10 mg tablet - lidocaine-prilocaine (EMLA) 2.5-2.5 % cream lidocaine-prilocaine 2.5-2.5% cream - methylPREDNISolone (MEDROL, JANAY,) 4 mg Dose-Pack Medrol (Janay) 4 mg tablets,dose pack - morphine SR (MS CONTIN, ORAMORPH SR) 15 mg 12 hr tablet Take by mouth. - Omeprazole Magnesium 20 mg tablet omeprazole 20 mg tablet,delayed release (DR/EC) - ARIPiprazole (ABILIFY) 2 mg tablet Take 2 mg by mouth (more content not included)...[facility]07-22-2022 Instructions* Patient Instructions* Sindi Blackman APRN.CNP - 01/23/2022 1:31 PM EDT Pt instructed that d/t recent UDS(+)Meth), non narcotic options will only be offered. He gave a verbal understanding Continue Gabitril -take as prescribed F/u with creel clerk-Dr. Orellana([facility]) F/u with Dr. Deborah LEGGETT (gave hayden. shoulder injections) Continue Lidocaine-Prilocaine Cream to left shoulder Pt. is declining injections d/t not being able to receive IV sedation Follow-up in 3 months -Call [phone] option #1 for another appt. Sindi Blackman APRN.CNP [facility] History of Present illness Narrative* Sindi Blackman APRN.CNP - 01/23/2022 1:00 PM EDTSummary: F/u DATE: January 23, 2022 This video visit was performed via [employer] video visit. Patient consented to receive health care services via virtual visit for this encounter Provider Location: Non-[facility] Patient Location: Patient Home or Place of Residence Risks, benefits, and limitations of receiving care virtually were discussed with the patient. The patient expressed understanding and is willing to proceed. Chief Complaint: Pain History of Present Illness: Harry Cortes is a 51 year old year old male being seen at [facility] for a evaluation and/or management of their chronic pain. The patient last had an office visit on 05/26/21, virtual visit on 09/23/21. He is scheduled for a virtual visit today. His pain level has remained the same since the last visit. VAS 8/10 Chief complaint: LB, neck, shoulder pain Location: LB, neck, shoulder pain Timing: constant Severity: moderate, severe at times Quality: aching Radiation: b/l arms/legs(L>R) Numbness: L side knee down Burning: denies Tingling: left arm at times Weakness: left arm and left leg Falls: denies Alleviating Factors: laying down Aggravating Factors: all daily activities The patient denies any bowel or bladder dysfunction denies Since the last office visit the patients medical history has not changed. The patient denies any new diagnoses, hospital visits or ER visits. The patient is currently prescribed Gabatril from our office. The last dose was taken this morning.The medications are effective. The patient denies nausea, vomiting, constipation,rashes, drowsiness,weight gain, weight loss,dizziness,and fatigue. The OARRS report has been reviewed and is consistent with the patients medical history and medication intake. Last Urine Drug Screen (UDS): 05/26/2021. The UDS has been reviewed and is NOT consistent with medications prescribed. (+)METH. REVIEW OF SYSTEMS: GENERAL: No weight loss, malaise or fevers RESPIRATORY: Negative for cough, hemoptysis, wheezing, COPD, dyspnea or shortness of breath. CARDIOVASCULAR: Negative for chest pain, leg swelling, hypertension, CHF or palpitations GI: No nausea, vomiting, or diarrhea. MUSCULOSKELETAL: (+) for joint pain or swelling, back pain or muscle pain. PAST MEDICAL HISTORY Diagnosis Date Anxiety Arthritis Atrial fibrillation (HCC) Back pain Chicken pox Depression Depression DM (diabetes mellitus) (HCC) GERD (gastroesophageal reflux disease) HTN (hypertension) HTN (hypertension) Hypercholesterolemia AMITA (obstructive sleep apnea) Pneumonia Scarlet fever Tobacco abuse PAST SURGICAL HISTORY Procedure Laterality Date KNEE 1-2 VIEWS L LUMBAR PAST SURGICAL HISTORY OF , 1999 knee bilateral a/s PAST SURGICAL HISTORY OF 07/05/2009 lumbar laminectomy no fusion PAST SURGICAL HISTORY OF 07/05/2014 lumbar/ cervical pain injection- muliple. PAST SURGICAL HISTORY OF cardiac stents FAMILY HISTORY Problem Relation Age of Onset Diabetes Mother other (dm) Mother other (fibromyalgia) Mother other (lupus) Mother Diabetes Father Cancer Father esophageal Diabetes Maternal Grandmother Social History Tobacco Use Smoking status: Current Every Day Smoker Packs/day: 1.00 Years: 0.20 Pack years: 0.20 Types: Cigarettes Smokeless tobacco: Current User Types: Snuff Last attempt to quit: 03/05/2015 Tobacco comment: 09/03/15 Pt had smoked for 10 years & quit for 20 yrs. Vaping Use Vaping Use: Never used Substance Use Topics Alcohol use: Yes Comment: rarely Drug use: No Allergies: Lyrica [Pregabalin] Itching Current Outpatient Medications Medication Sig tiaGABine (GABITRIL) 4 mg tablet Take by mouth. tiaGABine (GABITRIL) 4 mg tablet Take 1 tablet by mouth as directed. Take one tablet in AM & two tablets in PM. amitriptyline (ELAVIL) 10 mg tablet amitriptyline 10 mg tablet diazePAM (VALIUM) 10 mg tablet diazepam 10 mg tablet lidocaine-prilocaine (EMLA) 2.5-2.5 % cream lidocaine-prilocaine 2.5-2.5% cream methylPREDNISolone (MEDROL, JANAY,) 4 mg Dose-Pack Medrol (Janay) 4 mg tablets,dose pack morphine SR (MS CONTIN, ORAMORPH SR) 15 mg 12 hr tablet Take by mouth. Omeprazole Magnesium 20 mg tablet omeprazole 20 mg tablet,delayed release (DR/EC) ARIPiprazole (ABILIFY) 2 mg tablet Take 2 mg by mouth once daily. aspirin, enteric coated (ASPIRIN, ENTERIC COATED) 81 mg EC tablet Take 81 mg by mouth once daily. ticagrelor (BRILINTA) 90 mg tablet Take 90 mg by mouth twice daily. carvedilol (COREG) 3.125 mg tablet Take 3.125 mg by mouth twice daily with meals. empagliflozin (JARDIANCE) 25 mg tablet Take 25 mg by mouth daily with breakfast. glimepiride (AMARYL) 2 mg tablet Take 2 mg by mouth daily with breakfast. buPROPion XL (WELLBUTRIN XL) 300 mg 24 hr tablet Take 300 mg by mouth once daily. DULoxetine (CYMBALTA) 30 mg capsule Take 30 mg by mouth once daily. (Patient not taking: Reported on 12/04/2020 ) JANUVIA 100 mg tablet Take 100 mg by mouth once daily. (Patient not taking: Reported on 12/04/2020 ) tiZANidine (ZANAFLEX) 4 mg tablet Take 4 mg by mouth every 6 hours as needed. (Patient not taking: Reported on 12/04/2020 ) fenofibrate nanocrystallized (TRICOR) 145 mg tablet Take 145 mg by mouth once daily. (Patient not taking: Reported on 12/04/2020 ) atorvastatin (LIPITOR) 80 mg tablet Take 80 mg by mouth once daily. insulin glargine (LANTUS) 100 unit/mL injection Inject 55 Units subcutaneously daily at bedtime. (Patient not taking: Reported on 12/04/2020 ) oxyCODONE ER (OXYCONTIN) 20 mg Tb12 Take 20 mg by mouth every 12 hours. (Patient not taking: Reported on 12/04/2020) ibuprofen 800 mg tablet Take 800 mg by mouth every 6 hours as needed. (Patient not taking: Reportedon 12/04/2020 ) [place]-3 Fatty Acids-Vitamin E (FISH OIL) 1,000 mg cap Take 1 capsule by mouth twice daily. (Patientnot taking: Reported on 12/04/2020 ) coenzyme Q10 (CO Q-10) 100 mg cap Take 100 mg by mouth once daily. (Patient not taking: Reported on12/04/2020 ) Cholecalciferol, Vitamin D3, (VITAMIN D) 1,000 unit cap Take 1,000 Units by mouth once daily. (Patient not taking: Reported on 12/04/2020 ) metFORMIN 1,000 mg tablet Take 1,000 mg by mouth twice daily with meals. omeprazole 20 mg capsule Take 20 mg by mouth once daily. lisinopril 10 mg tablet Take 10 mg by mouth once daily. HYDROmorphone 4 mg tablet Take 4 mg by mouth every 6 hours as needed. sertraline (ZOLOFT) 100 mg tablet Take two tablets by mouth once daily. DULoxetine (CYMBALTA) 60 mg capsule Take 120 mg by mouth once daily. No current facility-administered medications for this visit. PHYSICAL EXAMINATION: VIDEO EXAM: (performed via video enabled technology) GENERAL: alert and appropriate, in no distress, well-hydrated, well nourished and happy, smiling, interactive HEAD: normocephalic, no abnormality or lesion noted RESPIRATORY: breathing non-labored NEUROLOGIC: no obvious deficit ASSESSMENT: Patient is stable. Chronic pain is persistent. Medications are helping Harry Cortes to have an improved quality of life. Patient compliance with Opioid Contract: patient is compliant Encounter Diagnosis ICD-10-CM 1. Degeneration of lumbar or lumbosacral intervertebral disc M51.37 2. Cervical spondylosis without myelopathy M47.812 3. Generalized osteoarthritis M15.9 4. Lumbar disc herniation M51.26 PLAN: The patient understands the goal of our treatment is a reduction in pain and/or an improved level of functioning with activities of daily living. If at any time the patient does not feel the medications are helping them to achieve these goals, the medications may be discontinued. The patient reports a reduction in pain and/or an improved level of functioning with activities of daily living, denies any significant adverse effects, is compliant with the pain management agreement and there are no signs of medication misuse, abuse or diversion; therefore, the medications will be continued. Pt instructed that d/t recent UDS(+)Meth), non narcotic options will only be offered. He gave a verbal understanding Continue Gabitril -take as prescribed F/u with creel clerk-Dr. Orellana([facility]) F/u with Dr. Deborah LEGGETT (gave hayden. shoulder injections) Continue Lidocaine-Prilocaine Cream to left shoulder Pt. is declining injections d/t not being able to receive IV sedation Follow-up in 3 months -Call [phone] option #1 for another appt. Sindi Blackman APRN.COLLEEN documented [facility]21 NoteHNO ID: [id number] Author: Sue Orellana MD Service: ? Author Type: Physician Type: Progress Notes Filed: 01/24/2021 12:12 PM Note Text: VIRTUAL VISIT PROGRESS NOTE This is a virtual visit using [employer]Works video visit. It required patient-provider interaction for the medical decision making as documented below. Harry Cortes is a 50 year old male seen for joint pain. 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 He had back surgery in 2009, herniated disc. Pain over shoulders, knees, hands, low back, ankle L >R. stiff. Never been tested for autoimmune diseases. Some injuries before. He sees pain management. He takes morphine, dilaudid. Some hand swelling. No recent xrays. Had PT. He had MRI shoulder- left rotator cuff tear. Surgery was advised but he declined. He saw ortho. He will be getting shoulder injections L>R ? ? DM2, HTN, CAD, HLP ? Family history of autoimmune disease: mother with RA, lupus. Sister has joint pain. Smoking status: Tobacco Use: 1 packs/day, for .2 years. Types: Cigarettes, Snuff (09/03/15 Pt had smoked for 10 years AND quit for 20 yrs.) HISTORY REVIEWED (electronic chart updated): PAST MEDICAL HISTORY Diagnosis Date - Anxiety - Atrial fibrillation (HCC) - Back pain - Depression - DM (diabetes mellitus) (HCC) - GERD (gastroesophageal reflux disease) - HTN (hypertension) - Hypercholesterolemia - AMITA (obstructive sleep apnea) - Tobacco abuse PAST SURGICAL HISTORY Procedure Laterality Date - PAST SURGICAL HISTORY OF , 1999 knee bilateral a/s - PAST SURGICAL HISTORY OF 07/05/2009 lumbar laminectomy no fusion - PAST SURGICAL HISTORY OF 07/05/2014 lumbar/ cervical pain injection- muliple. - PAST SURGICAL HISTORY OF cardiac stents FAMILY HISTORY Problem Relation Age of Onset - other (dm [Other]) Mother - other (fibromyalgia [Other]) Mother - other (lupus [Other]) Mother - Diabetes Father - Cancer Father esophageal Social History Tobacco Use - Smoking status: Former Smoker Packs/day: 1.00 Years: 0.20 Pack years: 0.20 Types: Cigarettes - Smokeless tobacco: Current User Types: Snuff Last attempt to quit: 03/05/2015 - Tobacco comment: 09/03/15 Pt had smoked for 10 years AND quit for 20 yrs. Vaping Use - Vaping Use: Never used Substance Use Topics - Alcohol use: Yes Comment: rarely - Drug use: No Current Outpatient Medications Medication Sig - aspirin, enteric coated (ASPIRIN, ENTERIC COATED) 81 mg EC tablet Take 81 mg by mouth once daily. - ticagrelor (BRILINTA) 90 mg tablet Take 90 mg by mouth twice daily. - carvedilol (COREG) 3.125 mg tablet Take 3.125 mg by mouth twice daily with meals. - empagliflozin (JARDIANCE) 25 mg tablet Take 25 mg by mouth daily with breakfast. - glimepiride (AMARYL) 2 mg tablet Take 2 mg by mouth daily with breakfast. - buPROPion XL (WELLBUTRIN XL) 300 mg 24 hr tablet Take 300 mg by mouth once daily. - DULoxetine (CYMBALTA) 30 mg capsule Take 30 mg by mouth once daily. (Patient not taking: Reported on 12/04/2020 ) - JANUVIA 100 mg tablet Take 100 mg by mouth once daily. (Patient not taking: Reported on 12/04/2020 ) - tiZANidine (ZANAFLEX) 4 mg tablet Take 4 mg by mouth every 6 hours as needed. (Patient not taking: Reported on 12/04/2020 ) - fenofibrate nanocrystallized (TRICOR) 145 mg tablet Take 145 mg by mouth once daily. (Patient not taking: Reported on 12/04/2020 ) - atorvastatin (LIPITOR) 80 mg tablet Take 80 mg by mouth once daily. - ARIPiprazole (ABILIFY) 10 mg tablet Take 10 mg by mouth once daily. - insulin glargine (LANTUS) 100 unit/mL injection Inject 55 Units subcutaneously daily at bedtime. (Patient not taking: Reported on 12/04/2020 ) - oxyCODONE ER (OXYCONTIN) 20 mg Tb12 Take 20 mg by mouth every 12 hours. (Patient not taking: Reported on 12/04/2020) - ibuprofen 800 mg tablet Take 800 mg by mouth every 6 hours as needed. (Patient not taking: Reported on 12/04/2020 ) - [place]-3 Fatty Acids-Vitamin E (FISH OIL) 1,000 mg cap Take 1 capsule by mouth twice daily. (Patient not taking: Reported on 12/04/2020 ) - coenzyme Q10 (CO Q-10) 100 mg cap Take 100 mg by mouth once daily. (Patient not taking: Reported on 12/04/2020 ) - Cholecalciferol, Vitamin D3, (VITAMIN D) 1,000 unit cap Take 1,000 Units by mouth once daily. (Patient not taking: Reported on 12/04/2020 ) - metFORMIN 1,000 mg tablet Take 1,000 mg by mouth twice daily with meals. - omeprazole 20 mg capsule Take 20 mg by mouth once daily. - lisinopril 10 mg tablet Take 10 mg by mouth once daily. - tiaGABine 4 mg tablet Take one tablet in AM AND two tablets in PM. - HYDROmorphone 4 mg tablet Take 4 mg by mouth every 6 hours as needed. - sertraline (ZOLOFT) 100 mg tablet Take two tablets by mouth once daily. - DULoxetine (CYMBALTA) 60 mg capsule Take 120 mg by mouth once daily. No current facility-administered medications for this visit. ALLERGIES Allergen Reactions - Lyr (more content not included)...[facility]06-25-2021 Note HNO ID: [id number] Author: RT Ivanna(R) Service: ? 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 FALL SCREENING: Has the patient had 2 falls in the last year or 1 fall with injury or currently using an Ambulatory Assistive Device (Walker, Cane, Wheelchair, Crutches, etc.)? No PATIENT GENDER DATA: Male PATIENT RELEVANT IMPLANT DATA REVIEWED: Not Applicable RADIOLOGY DEPARTMENT: General X-ray: Exam(s) Completed: Spine X-Ray(s): Lumbar AP / LAT / L5-S1 Pelvis X-Ray: sacroiliac joints Lower Extremity X-Ray(s): Knee, AP Only Bilateral and Wt. Bearing and Foot, Bilateral and Wt. Bearing Upper Extremity X-Ray(s): Hand, bilateral PERIPHERAL IV DATA: Not applicable SIGNED BY: RT Ivanna(R) December 27, 2020 4:22 [facility]06-25-2021 NoteHNO ID: [id number] Author: RT Barry(R) Service: ? 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 FALL SCREENING: Has the patient had 2 falls in the last year or 1 fall with injury or currently using an Ambulatory Assistive Device (Walker, Cane, Wheelchair, Crutches, etc.)? No PATIENT GENDER DATA: Male PATIENT RELEVANT IMPLANT DATA REVIEWED: Yes RADIOLOGY DEPARTMENT: MR; Exam(s) Completed: Lower MSK: Pelvis, bilateral PERIPHERAL IV DATA: Not applicable SIGNED BY: RT Barry(R) December 27, 2020 3:23 [facility]06-02-2021 NoteHNO ID: [id number] Author: Sue Orellana MD Service: ? Author Type: Physician Type: Progress Notes Filed: 12/05/2020 11:03 AM Note Text: RHEUMATOLOGY NEW PATIENT NOTE REFERRING PHYSICIAN: Self CHIEF COMPLAINT: Patient presents with: Chronic Pain New Patient HPI: Harry Cortes is a 50 year old male who presents with joint pain. 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 He had back surgery in 2009, herniated disc. Pain over shoulders, knees, hands, low back, ankle L >R. stiff. Never been tested for autoimmune diseases. Some injuries before. He sees pain management. He takes morphine, dilaudid. Some hand swelling. No recent xrays. Had PT. He had MRI shoulder- left rotator cuff tear. Surgery was advised but he declined. He saw ortho. He will be getting shoulder injections L>R DM2, HTN, CAD, HLP Family history of autoimmune disease: mother with RA, lupus. Sister has joint pain. Smoking status: Tobacco Use: 1 packs/day, for .2 years. Types: Cigarettes, Snuff (09/03/15 Pt had smoked for 10 years AND quit for 20 yrs.) Rheumatology REVIEW OF SYSTEMS: Constitutional: Recent Weight Change: No Fatigue: YES Fever: No Night sweats: No Heent: Alopecia: No H/o Inflammatory eye disease (iritis/scleritis): No Hearing loss: No Frequent sinusitis: No Oral ulcers: No Sicca: No Parotid swelling: No Hoarseness: No Dysphagia: No Heme/lymph: Lymphadenopathy: No Hematological abnormalities (anemia, thrombocytopenia, leukopenia): No Abnormal bleeding: No Skin: Malar or discoid lesions: No Photosensitivity: No Other rashes: No Raynaud's phenomenon: No Hives: No Tightness: No Nodules/bumps: No Easy Bruising: No Nail changes: No H/o psoriasis: No Gastroenterology: Nausea: {No Vomiting: No Change in bowel movements: No Heartburn: No Respiratory: Dry cough/SOB: No Cardiovascular: Pain in chest: No Musculoskeletal: Per HPI Joint pain or swelling: No Prolonged morning stiffness: No Back pain or neck pain: No Muscle weakness: No Genitourinary: Vaginal dryness: No Rash/ulcers: No Neurological: Headaches: YES sometimes sinus, neck pain Sensitivity or pain of hands and/or feet: YES hands, feet Psychiatry: Anxiety: YES Depression: YES Poor sleep: YES H/o loss: No H/o thrombosis: No Increased susceptibility to infection: No PAST MEDICAL HISTORY Diagnosis Date - Anxiety - Atrial fibrillation (HCC) - Back pain - Depression - DM (diabetes mellitus) (HCC) - GERD (gastroesophageal reflux disease) - HTN (hypertension) - Hypercholesterolemia - AMITA (obstructive sleep apnea) - Tobacco abuse PAST SURGICAL HISTORY Procedure Laterality Date - PAST SURGICAL HISTORY OF , 1999 knee bilateral a/s - PAST SURGICAL HISTORY OF 07/05/2009 lumbar laminectomy no fusion - PAST SURGICAL HISTORY OF 07/05/2014 lumbar/ cervical pain injection- muliple. - PAST SURGICAL HISTORY OF cardiac stents Current Outpatient Medications Medication Sig - aspirin, enteric coated (ASPIRIN, ENTERIC COATED) 81 mg EC tablet Take 81 mg by mouth once daily. - ticagrelor (BRILINTA) 90 mg tablet Take 90 mg by mouth twice daily. - carvedilol (COREG) 3.125 mg tablet Take 3.125 mg by mouth twice daily with meals. - empagliflozin (JARDIANCE) 25 mg tablet Take 25 mg by mouth daily with breakfast. - glimepiride (AMARYL) 2 mg tablet Take 2 mg by mouth daily with breakfast. - buPROPion XL (WELLBUTRIN XL) 300 mg 24 hr tablet Take 300 mg by mouth once daily. - atorvastatin (LIPITOR) 80 mg tablet Take 80 mg by mouth once daily. - ARIPiprazole (ABILIFY) 10 mg tablet Take 10 mg by mouth once daily. - metFORMIN 1,000 mg tablet Take 1,000 mg by mouth twice daily with meals. - omeprazole 20 mg capsule Take 20 mg by mouth once daily. - lisinopril 10 mg tablet Take 10 mg by mouth once daily. - tiaGABine 4 mg tablet Take one tablet in AM AND two tablets in PM. - HYDROmorphone 4 mg tablet Take 4 mg by mouth every 6 hours as needed. - sertraline (ZOLOFT) 100 mg tablet Take two tablets by mouth once daily. - DULoxetine (CYMBALTA) 60 mg capsule Take 120 mg by mouth once daily. - DULoxetine (CYMBALTA) 30 mg capsule Take 30 mg by mouth once daily. (Patient not taking: Reported on 12/04/2020 ) - JANUVIA 100 mg tablet Take 100 mg by mouth once daily. (Patient not taking: Reported on 12/04/2020 ) - tiZANidine (ZANAFLEX) 4 mg tablet Take 4 mg by mouth every 6 hours as needed. (Patient not taking: Reported on 12/04/2020 ) - fenofibrate nanocrystallized (TRICOR) 145 mg tablet Take 145 mg by mouth once daily. (Patient not taking: Reported on 12/04/2020 ) - insulin glargine (LANTUS) 100 unit/mL injection Inject 55 Units subcutaneously daily at bedtime. (Patient not taking: Reported on 12/04/2020 ) - oxyCODONE ER (OXYCONTIN) 20 mg Tb12 Take 20 mg by mouth every 12 hours. (Patient not taking: Reported on 12/04/2020) - ibuprofen 800 mg ta (more content not included)...[facility] 09-12-2020 NotePatient Outreach (COVAMN) HARRY CORTES ([id number]) 1970 M Date Time Provider Department 09/12/20 MAHAMED MCCALL During your visit today, we recorded the following information about you: Allergies As of Date: 09/12/2020 Noted Allergy Reaction LYRICA (PREGABALIN) 01/30/2013 9 - Itching Date Reviewed: 09/17/2015 Reviewed by: Geneva Ochoa (Tacking Stitch Remover) YURIDIA Gonzalez - Fully Assessed Order(s):SARS-COVID VACCINE 1ST DOSE APPT [[id number]] Order #: [id number] FUTURE Prescriptions as of 09/12/2020 Sig: DULOXETINE 30 MG CAPSULE,KANA* Take 30 mg by mouth once renan* JANUVIA 100 MG TABLET Take 100 mg by mouth once kim* TIZANIDINE 4 MG TABLET Take 4 mg by mouth every 6 ho* FENOFIBRATE NANOCRYSTALLIZED * Take 145 mg by mouth once kim* ATORVASTATIN 80 MG TABLET Take 80 mg by mouth once renan* ARIPIPRAZOLE 10 MG TABLET Take 10 mg by mouth once renan* INSULIN GLARGINE (U-100) 100 * Inject 55 Units subcutaneousl* OXYCODONE ER 20 MG TABLET,EXT* Take 20 mg by mouth every 12 * IBUPROFEN 800 MG TABLET Take 800 mg by mouth every 6 * [place]-3 FATTY ACIDS-VITAMIN E* Take 1 capsule by mouth twice* COENZYME Q10 100 MG CAPSULE Take 100 mg by mouth once kim* CHOLECALCIFEROL (VITAMIN D3) * Take 1,000 Units by mouth onc* METFORMIN 1,000 MG TABLET Take 1,000 mg by mouth twice * OMEPRAZOLE 20 MG CAPSULE,KANA* Take 20 mg by mouth once renan* LISINOPRIL 10 MG TABLET Take 10 mg by mouth once renan* TIAGABINE 4 MG TABLET Take one tablet in AM AND two t* HYDROMORPHONE 4 MG TABLET Take 4 mg by mouth every 6 ho* SERTRALINE 100 MG TABLET Take two tablets by mouth onc* DULOXETINE 60 MG CAPSULE,KANA* Take 60 mg by mouth once renan* Problem List As Of Date 09/12/2020 Noted Resolved Back pain [M54.9] 01/30/2013 Abdominal pain, other specified site [R10.9] 01/30/2013 Degeneration of lumbar or lumbosacral intervert*05/24/2014 Thoracic or lumbosacral neuritis or radiculitis*05/24/2014 Spinal stenosis in cervical region [M48.02] 08/16/2014 Cervical spondylosis without myelopathy [M47.81*08/16/2014 HTN (hypertension) [I10] 10/30/2014 Hyperlipidemia [E78.5] 10/30/2014 Atrial fibrillation (HCC) [I48.91] 10/30/2014 Obesity [E66.9] 10/30/2014 Depression [F32.9] 10/30/2014 AMITA (obstructive sleep apnea) [G47.33] 10/30/2014 Tobacco use [Z72.0] 10/30/2014 Diabetes mellitus type 2, controlled, without c*10/30/2014 GERD (gastroesophageal reflux disease) [K21.9] 10/30/2014 Polycythemia (HCC) [D75.1] 09/03/2015 Letter Text Encounter Status:Closed by DMITRI PRODUSER on 09/16/20[facility] 02-13-2019 Evaluation note* Diagnosis Onset Date Resolution Status Impingement of left shoulder acute Impingement of right shoulder acute Left shoulder pain acute Essential hypertension chron ic History of coronary artery stent placement February chronic HLD (hyperlipidemia) chronic Paroxysmal atrial fibrillation chronic Angina at rest acute Atherosclerotic heart diseas e of cheesh-na coronary artery with angina pectoris acute Chest pain acute [id number] acute Essential hypertension chron ic History of coronary artery stent placement February chronic HLD (hyperlipidemia) chronic Work Phone: [phone] 287-897708-12-2019 Evaluation note* Diagnosis Onset Date Resolution Status Impingement of left shoulder acute Impingement of right shoulder acute Left shoulder pain acute Essential hypertension chron ic History of coronary artery stent placement February chronic HLD (hyperlipidemia) chronic Paroxysmal atrial fibrillation chronic Angina at rest acute Atherosclerotic heart diseas e of cheesh-na coronary artery with angina pectoris acute Chest pain acute [id number] acute Essential hypertension chron ic History of coronary artery stent placement February chronic HLD (hyperlipidemia) chronic Paroxysmal atrial fibrillation chronic Work Phone: Discharge summary Author Stan Mayers August 01, 2023 6:31am Note Date/Time August 01, 2023 5 :12am [facility] Medical Records Department [address] [place] [address] Emergency Department Summary 08/01/23 MR#: [id number] Acct: [id number] Name: HARRY CORTES Jr. Rep #:[id number] : 1970 52 From: Stan Mayers MD PCP: Marylu Mckoy, Status:REG E R Location: ED HPI History of Present Illness Chief Complaint: Chest Pain Onset/Context/Timing Onset: Today Activity at onset: sudden Timing: Intermittent Quality: Positive for Tightness Location: Substernal Current Severity: Gone Maximum Severity: Moderate Worsened By: Nothing Relieved By: NTG (Took total of 3 5 minutes apart) Associated Symptoms: Positive for Nausea, Diaphoresis, Dyspnea and Lightheadedness; Negative for Vomiting, Cough, Fever, Acid Reflux or Palpitations Narrative Narrative: Patient is a 52-year-old male who has history of atherosclerotic heart disease with stent placement diagonal and circumflex. The circumflex is a large dominant vessel. The circumflex was stented by Dr. Lukasz Marshall February 2019. Patient was also noted to have nonsignificant disease in the RCA. EF was preserved. Patient states he was sitting when he developed tightness in his chest radiatingto his back with diaphoresis nausea shortness of breath and lightheadedness. Patient took a total of 3 nitroglycerin. Patient is presently pain-free. Patient is a smoker 1 pack/day. He does have history essential hypertension, hyperlipidemia, type 2 diabetes. He does have a history of GERD. He states this pain is different than his GERD. When he presented with his chest discomfort February 2019 he had an atypical presentation with neck and left shoulder pain. Patient denies black or maroon-colored stool. He denies abdominal pain. Deniesintolerance to greasy or fried foods. Patient denies headache, visual, ocular auditory symptoms. Patient denies dyspnea Clinisync distribution, orthopnea or PND. Patient denies urologic symptoms. He takes a baby aspirin a day. He was given 4 baby aspirin in route by squad. Prior Similar Symptoms: Yes Recent Illness/Hospitalization: No CVD Risk Factors: Positive for Hypertension, Diabetes, Hypercholesterolemia and Smoking PE Risk Factors: Negative for Recent Travel/Surgery, Recent Immobilization, Prior DVT or PE, Cancer or OCP + Smoking + >/=35 TAD Risk Factors: Positive for Hypertension; Negative for Marfan's Syndrome or Family History PFSH PFSH Medical History Abscess of neck (09/2020) Atherosclerosis of cheesh-na coronary artery of cheesh-na heart without angina pectoris Chronic pain Depression DM2 (diabetes mellitus, type 2) Erectile dysfunction Essential hypertension Herniated disc History of non-ST elevation myocardial infarction (NSTEMI) (09/14/18) HLD (hyperlipidemia) Hypokalemia Impingement of left shoulder Impingement of right shoulder Left shoulder pain Paroxysmal atrial fibrillation Tobacco use Home Medications aspirin 81 mg tablet,delayed release 81 mg PO DAILY #90 tabs 07/29/23 [Rx Last Taken Unknown] brexpiprazole 0.5 mg tablet (Rexulti) 1 mg PO DAILY 07/29/23 [History Last Taken Unknown] nitroglycerin 0.4 mg sublingual tablet 0.4 mg sublingual Q5M PRN Cardiac/Chest Pain #1 BOTTLE 07/29/23 [Rx Last Taken Unknown] omeprazole 20 mg capsule,delayed release 20 mg PO DAILY 07/29/23 [History Last Taken Unknown] rosuvastatin 10 mg tablet (Crestor) 10 mg PO DAILY 07/29/23 [History Last Taken Unknown] Allergy/AdvReac Type Severity Reaction Status Date / Time pregabalin [From Lyrica] AdvReac Itching Verified 08/01/23 04:54 Family History Father Esophageal cancer Diabetes Myocardial infarction Mother Arthritis Diabetes Surgical History H/O arthroscopic knee surgery History of arthroscopic knee surgery History of back surgery History of coronary artery stent placement (02/13/19) s/p back Social History Smoking Status: Current every day smoker tobacco type: cigarettes Tobacco: How many years used: 30 alcohol intake: current alcohol intake frequency: a few times a week Alcohol type: beer substance use type: does not use what type of physical activity do you participate in: none ROS ROS ED Constitutional Constitutional ED: Denies chills, fever(s), subjective, sweats or weight loss Eyes Eyes: Reports none ENT ENT ED: Denies ear pain, rhinorrhea or sore throat Cardiovascular Cardiovascular: Reports as per HPI; Denies orthopnea or paroxysmal nocturnal dyspnea Respiratory/Chest Respiratory/Chest: Reports dyspnea; Denies cough, dyspnea on exertion, orthopneaor paroxysmal nocturnal dyspnea Gastrointestinal Gastrointestinal: Denies abdominal pain, diarrhea, melena or vomiting Musculoskeletal Musculoskeletal: Reports back pain; Denies arthralgias, myalgias or neck pain Integumentary Reports rash Endocrine Endocrinology: Denies cold intolerance, heat intolerance or polydipsia Hematologic/Lymphatic Hematologic/Lymphatic: Denies easy bleeding or easy bruising EXAM Physical Exam Const Vital Signs: 08/01/23 04:50 08/01/23 04:50 08/01/23 05:05 Temperature 97.6 F L Temperature Source Temporal Pulse Rate 74 Respiratory Rate 15 Respiratory Effort Normal Blood Pressure 99/59 L Blood Pressure Mean 72 Pulse Ox 95 Oxygen Delivery Method Room Air Room Air 08/01/23 06:27 Temperature Temperature Source Pulse Rate 67 Respiratory Rate 15 Respiratory Effort Blood Pressure 107/68 Blood Pressure Mean 81 Pulse Ox 97 Oxygen Delivery Method Positive well nourished and well developed General Appearance ED: well developed and NAD HEENT Reports moist mucous membranes normocephalic and atraumatic Eyes PERRL and EOMs intact bilaterally General Eye ED: Negative for pale conjunctiva or scleral icterus Neck supple and no JVD Chest Wall inspection of chest normal and palpation of chest normal Resp normal respiratory effort and clear to auscultation bilaterally Cardio regular rate, regular rhythm, S1 normal heart sound, S2 normal heart sound and no murmurs GI normal to inspection, nondistended, normoactive bowel sounds, soft to palpation,non-tender, non-distended and hepatosplenomegaly; Negative for no masses Back/Spine no CVA tenderness and no thoracic nor lumbar tenderness Extremity normal to inspection General Extremety ED: Negative for edema, pulses abnormal or tenderness General Extremity: Negative for edema or pulses abnormal Neuro oriented x3, no sensory deficits noted and gait normal Psych mental status grossly normal Skin no rashes or lesions noted and no wounds MDM MDM MDM Narrative Medical decision making narrative: Differential diagnoses include cardiac versus noncardiac pain. Noncardiac wouldinclude reflux, gastritis, peptic ulcer disease, biliary disease and pulmonary disease. Since patient received aspirin in the squad prior to arrival he was not given additional dose of aspirin. EKG was obtained to rule out any acute ischemia. Chest x-ray to assess lung parenchyma mediastinum. CBC to rule out anemia. Basic metabolic panel to assess renal function. Cardiac ears obtained to rule out coronary disease. Patient received a [place] tablet for his back pain, which is a chronic issue. History & Record Review Additional record(s) reviewed:: Prior inpatient record, Prior outpatient record and Prior ED visit Lab Data Attestation: I reviewed the patient's lab results. Lab results narrative: White count is slightly elevated with a normal differential and H&H. Basic metabolic panel is marked for glucose of 538 with a normal CO2 and anion gap. First troponin is normal. Labs: Laboratory Results - last 24 hr 08/01/23 05:04 WBC 12.0 H RBC 4.97 Hgb 14.4 Hct 44.2 MCV 88.9 MCH 29.0 MCHC 32.6 RDW Std Deviation 43.8 RDW Coeff of Sarahi 13.6 Plt Count 160 MPV 11.5 Immature Gran % (Auto) 0.800 Neut % (Auto) 65.5 Lymph % (Auto) 22.6 Gordon % (Auto) 8.2 Eos % (Auto) 2.2 Baso % (Auto) 0.7 Absolute Neuts (auto) 7.9 H Absolute Lymphs (auto) 2.71 Nucleated RBC % 0 Sodium 136 Potassium 3.6 Chloride 107 Carbon Dioxide 24.0 Anion Gap 5 BUN 15 Creatinine 1.02 Estim Creat Clear Calc 88.47 Est GFR (MDRD) Af Amer 99 Est GFR (MDRD) Non-Af 82 BUN/Creatinine Ratio 14.7 Glucose 538 H* Calcium 9.3 Troponin I High Sens 18 Radiography Chest X-Ray - ED: 1 View and Read by ED Physician (Single view portable chest x- ray reveals limited inspiratory volume. Cardiac silhouette size normal. Mediastinum normal. Lung parenchyma is normal. Osseous structures are unremarkable. This independent reviewed interpreted by me at 0517) EKG Initial EKG: Attestation: I personally reviewed and interpreted this EKG as follows: Interpretation: Sinus Rhythm (Rate is 81. [place] interval is 140 ms. QRS duration 84 ms. QT duration 400 ms. [place] is normal. QTc is 464. There is prolongation of the QT interval. There is no ossific changes noted which I believe is artifact since is only seen in some leads and not meant adjacent leads.) Management Discussion w/another healthcare provider: Hospitalist (Review of most recent cardiac office visit notes indicates patient discontinued his cardiac meds and has not been compliant with insulin either. Plan is observation and cardiology consult.) Treatment and Re-Evaluation :: Patient received insulin for his elevated blood sugar of 538. Discharge Plan Triage Chief Complaint: Chest Pain ED Provider: Stan Mayers Dx/Rx/DC Orders Clinical Impression: Angina at rest, History of coronary artery stent placement, Essential hypertension, HLD (hyperlipidemia), 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, Type 1 diabetes mellitus with hyperglycemia, without long-term current use of insulin Prescriptions: No Action omeprazole 20 mg capsule,delayed release(DR/EC) 20 mg PO DAILY Rexulti 0.5 mg tablet 1 mg PO DAILY rosuvastatin [Crestor] 10 mg tablet 10 mg PO DAILY nitroglycerin 0.4 mg tablet, sublingual 0.4 mg sublingual Q5M PRN (Reason: Cardiac/Chest Pain) Qty: 1 3RF aspirin 81 mg tablet,delayed release (DR/EC) 81 mg PO DAILY Qty: 90 3RF Primary Care Provider: Marylu Mckoy Referrals: Marylu Mckoy DO [Primary Care Provider] - Disposition Disposition: Acute Care Hospital [facility] What to do if you have Problems For any increased pain, shortness of breath, bleeding, nausea or vomiting, chestpain, or any unexpected problems, contact your Primary Care Provider. Call [facility] ([phone]) or report to the closest Emergency Room. Call 911 if necessary. 08/01/23 06 <Electronically signed by Stan Mayers MD> Cosigner Signature (if applicable): CC: Marylu Mckoy DO ~ Signed Work Phone: Evaluation note* Diagnosis Degeneration of lumbar or lumbosacral intervertebral disc- Primary Cervical spondylosis without myelopathy Generalized osteoarthritis Generalized osteoarthrosis, unspecified site Lumbar disc herniation Displacement of lumbar intervertebral disc without myelopathy [facility] noteNo assessment information availableWOhio State [facility] Work Phone: Evaluation note* Diagnosis Onset Date Resolution Status Impingement of left shoulder acute Impingement of right shoulder acute Left shoulder pain acute Work Phone: History and physical note Author Marcie London August 01, 2023 6:34am Note Date/Time August 01, 2023 6 :35am [facility] Medical Records Department [address] [place] [address] H&P Exam - Hospitalist 08/01/23 0632 MR#: [id number] Acct: [id number] Name: HARRY CORTES JrHossein Rep #:[id number] : 1970 52 From: Marcie London MD PCP: Marylu Mckoy, Status:REG E R Location: ED HPI - General General Date of Admission: 08/01/23 Date of Service: 08/01/23 Chief Complaint: Chest pain. HPI Narrative The patient is a 52 y/o M w/ PMHx: AMITA not compliant with PAP therapy, diabetes mellitus type II, CAD s/p NSTEMI 09/2018 s/p PCI mid diagonal, 02/2019 PCI circumflex, Chronic back pain following with pain management, HTN, HLD, PAF, Tobacco use, recent 07/29/23 Cardiology visit during which patient reported he stopped all of his medication including his antiplt therapies secondary to beingtired of taking them with noted preference per cardiology to obtain a surveillance stress test in addition to strong encouragement to consider anticoagulation given his [id number] score of 2 who now presents to the [facility] 08/01/23 with history of onset of chest discomfort described as a tightness inthe substernal region with associated nausea, dyspnea, lightheadedness and diaphoresis with self administration of nitroglycerin x 3 at home with EMS call and administration of full-strength aspirin therapy upon their arrival. He notes being chest pain-free at this time. Workup in the ED included T97.6, heart rate 74, BP 99/59, respiratory rate 15, 95% on room air, CBC with WBC 12, hemoglobin 14.4, platelet 160 with left shift, BMP with glucose 538 otherwise not marked appearing, troponin 18, EKG with sinus rhythm with mild QT prolongation with QTc 464 with no acute evidence of ischemia, chest x-ray with no acute cardiopulmonary finding with final read pending. In the ED patient ministered [place] 1 tablet p.o. x 1. PFSH Medical History Atherosclerosis of cheesh-na coronary artery of cheesh-na heart without angina pectoris Chronic pain Depression DM2 (diabetes mellitus, type 2) Erectile dysfunction Essential hypertension Herniated disc History of non-ST elevation myocardial infarction (NSTEMI) (09/14/18) HLD (hyperlipidemia) Hypokalemia Impingement of left shoulder Impingement of right shoulder Paroxysmal atrial fibrillation Tobacco use Home Medications aspirin 81 mg tablet,delayed release 81 mg PO DAILY #90 tabs 07/29/23 [Rx Last Taken Unknown] brexpiprazole 0.5 mg tablet (Rexulti) 1 mg PO DAILY 07/29/23 [History Last Taken Unknown] nitroglycerin 0.4 mg sublingual tablet 0.4 mg sublingual Q5M PRN Cardiac/Chest Pain #1 BOTTLE 07/29/23 [Rx Last Taken Unknown] omeprazole 20 mg capsule,delayed release 20 mg PO DAILY 07/29/23 [History Last Taken Unknown] rosuvastatin 10 mg tablet (Crestor) 10 mg PO DAILY 07/29/23 [History Last Taken Unknown] empagliflozin 25 mg-linagliptin 5 mg tablet (Glyxambi) 1 tab PO DAILY 08/01/23 [History Last Taken Unknown] meloxicam 15 mg tablet 15 mg PO DAILY 08/01/23 [History Last Taken Unknown] Allergy/AdvReac Type Severity Reaction Status Date / Time pregabalin [From Lyrica] AdvReac Itching Verified 08/01/23 04:54 Family History Father Esophageal cancer Diabetes Myocardial infarction Mother Arthritis Diabetes Surgical History H/O arthroscopic knee surgery History of arthroscopic knee surgery History of back surgery History of coronary artery stent placement (02/13/19) s/p back Social History (Updated 08/01/23 @ 06:[address] Marcie London MD) household members: spouse Smoking Status: Current every day smoker tobacco type: cigarettes Smoking packsper day: 1 Smoking cigarettes per day: 20.0 Tobacco: How many years used: 30 alcohol intake: current alcohol intake frequency: a few times a week Alcohol type: beer substance use type: does not use what type of physical activity do you participate in: none ROS ROS Narrative Admission Review of Systems: CONSTITUTIONAL: No weight loss, fever, chills, + weakness or fatigue. HEENT: Eyes: No visual loss, blurred vision, double vision or yellow sclerae. Ears, Nose, Throat: No hearing loss, sneezing, congestion, runny nose or sore throat. SKIN: No rash or itching, lesions, wounds. CARDIOVASCULAR: + Chest pain. No palpitations, edema, orthopnea, syncopal events. RESPIRATORY: + Dyspnea. No cough or sputum, wheezing, hemoptysis. GASTROINTESTINAL: + Nausea. No vomiting or diarrhea, abdominal pain, melena, BRBPR. GENITOURINARY: No dysuria, frequency, urgency or retention. NEUROLOGICAL: No headache, dizziness, syncope, paralysis, ataxia, numbness or tingling in the extremities, focal weakness, change in bowel or bladder control,seizure. MUSCULOSKELETAL: + muscle, back pain, joint pain or stiffness. HEMATOLOGIC: No anemia, bleeding or bruising. LYMPHATICS: No enlarged nodes. No history of splenectomy. PSYCHIATRIC: + Anxiety and Depression. ENDOCRINOLOGIC: + Reports of sweating. No cold or heat intolerance. No polyuria or polydipsia. ALLERGIES: No history of asthma, hives, eczema or rhinitis. Vital Signs Vital Signs Vital Signs: 08/01/23 04:50 08/01/23 04:50 08/01/23 05:05 Temperature 97.6 F L Temperature Source Temporal Pulse Rate 74 Respiratory Rate 15 Respiratory Effort Normal Blood Pressure 99/59 L Blood Pressure Mean 72 Pulse Ox 95 Oxygen Delivery Method Room Air Room Air 08/01/23 06:27 08/01/23 05:49 Temperature Temperature Source Pulse Rate 67 65 Respiratory Rate 15 16 Respiratory Effort Blood Pressure 107/68 Blood Pressure Mean 81 Pulse Ox 97 97 Oxygen Delivery Method Room Air Weight Weight: 179 lb 10.828 oz Body Mass Index (BMI) 25.7 Physical Exam Narrative Physical Examination: General: Awake, alert, oriented x 3 and cooperative, seated upright in the ED bed in no apparent distress, chest pain-free. Skin: Normal color, normal turgor, no icterus, no cyanosis. HEENT: AT/NC, EOMI, PERRLA, MMM, difficult to discern carotid bruits and JVD given notable facial hair. Lungs: Mildly diminished, greater bases, proper effort, no rales, ronchi or wheezing. Heart: Regular rate and rhythm; no gallop, rub audible. Abdomen: Soft, NTTP, ND, normal BS, no HSM. Extremities: No cyanosis, clubbing, or edema. Neurological: Patient awake, alert, oriented as noted, cognitive function intact; pupils equally reactive to light and accommodation, cranial nerves II-XII grossly normal, moving all 4 extremities, no focal deficits, strength moderately global decrease secondary to acute presentation complaints. Psychiatric: Affect appears fatigued, no acute evidence of depressive or anxietyfeelings but does have underlying history. Results Lab / Micro Data 08/01/23 05:04 08/01/23 05:04 Labs: Laboratory Results - last 24 hr 08/01/23 05:04: WBC 12.0 H, RBC 4.97, Hgb 14.4, Hct 44.2, MCV 88.9, MCH 29.0, MCHC 32.6, RDW Std Deviation 43.8, RDW Coeff of Sarahi 13.6, Plt Count 160, MPV 11.5, Immature Gran % (Auto) 0.800, Neut % (Auto) 65.5, Lymph % (Auto) 22.6, Gordon % (Auto) 8.2, Eos % (Auto) 2.2, Baso % (Auto) 0.7, Absolute Neuts (auto) 7.9 H, Absolute Lymphs (auto) 2.71, Nucleated RBC % 0, Sodium 136, Potassium 3.6, Chloride 107, Carbon Dioxide 24.0, Anion Gap 5, BUN 15, Creatinine 1.02, Estim Creat Clear Calc 88.47, Est GFR (MDRD) Af Amer 99, Est GFR (MDRD) Non-Af 82, BUN/Creatinine Ratio 14.7, Glucose 538 H*, Calcium 9.3, Troponin I High Sens18 Assessment & Plan Assessment/Plan (1) Chest pain: PLAN: Plan The patient is a 52 y/o M w/ PMHx: AMITA not compliant with PAP therapy, diabetes mellitus type II, CAD s/p NSTEMI 09/2018 s/p PCI mid diagonal, 02/2019 PCI circumflex, Chronic back pain following with pain management, HTN, HLD, PAF, Tobacco use, recent 07/29/23 Cardiology visit during which patient reported he stopped all of his medication including his antiplt therapies secondary to beingtired of taking them with noted preference per cardiology to obtain a surveillance stress test in addition to strong encouragement to consider anticoagulation given his [id number] score of 2 who now presents to the [facility] E[facility] 08/01/23 with history of onset of chest discomfort described as a tightness inthe substernal region with associated nausea, dyspnea, lightheadedness and diaphoresis. #1. Chest Pain: EKG in ED with sinus rhythm with no acute evidence of ischemia with mildly prolonged QT, CXR w/ no acute cardiopulmonary finding, initial trop 18. Will admit to PCU, place on a monitored bed to assure no acute myocardial infarction with serial cardiac enzymes and EKGs. Will restart aspirin as well as statin therapy as patient had unfortunately discontinued these previously. Magnesium level requested. FLP in AM. If repeat serial cardiac enzymes and EKGs remain stable we will pursue and cardiac stress testing on Wednesday otherwiseif enzymes rise will obtain cardiology consultation for cardiac catheterization consideration as patient certainly would be high risk given his history and not been taking any of the appropriate medications. ASA, NG, morphine. #2. CAD, Ischemic cardiomyopathy: s/p PCI-VENANCIO mid D1 09/14/2018; PCI-VENANCIO mid LCX02/13/2019, will restart aspirin, lovastatin, hold on hypertensive regimen given low blood pressure and per review of trending at least since 2019 patient does not appear to have significant hypertension. Most recent echocardiogram noted 01/17/2019 with EF 45 to 50%, stage I diastolic dysfunction, mild global hypokinesis LV, trivial TVI, RVSP 23 mmHg. #3. PAF: Patient w/ [id number] score of 2 but has declined anticoagulant therapy although in the past had previously been on Xarelto, not on rate or rhythm agent, encourage continued follow-up outpatient with cardiology. #4. Diabetes mellitus type II, uncontrolled with significant hyperglycemia: Patient previously noted to be an uncontrolled diabetic, previously on Trulicityhowever he discontinued it secondary to how he felt, previously been on insulin but had declined to restart this in the past. He notes he was recently started on glyxamibi 25 mg. Most recent hemoglobin A1c noted 06/09/2023 11.2%. Will initiate on low-dose twice daily long-acting, once appropriate and not n.p.o. transition to ADA diet, accu checks w/ ISS. Nutrition consulted for education and teaching. #5. Anxiety and depression: Patient remotely had been on sertraline and [facility] records also notable for prior duloxetine. From current records patient is not on any regimen but does have ongoing symptoms therefore would benefit strongly from follow-up with PCP and consideration of regimen resumption. #6. Hypertension: Noted chart history and previously in 2018 and 2019 patient with elevated blood pressures above goal however more recently blood pressures have been appropriate or on the low end, not currently on any hypertensive regimen, continue to monitor. #7. Hyperlipidemia: Will restart home statin regimen. AM FLP. #8. Tobacco Abuse: Encouraged cessation, inpatient consultation per RT, NR if desired. #9. Chronic back pain: Status post prior lumbar back surgery, following with pain management, #10. GERD: We will continue patient home PPI. #11. AMITA: Noncompliant with PAP therapy. #12. DVT prophylaxis: Lovenox. Charges/Coding Visit Charges Inpatient E&M: 70001 Init Hosp L3 08/01/23 0634 <Electronically signed by Marcie London MD> Cosigner Signature (if applicable): CC: Dr. Marcie London MD; Marylu Mckoy DO~ Signed Work Phone: Summary Purpose Family History No Family History Records Found Relationship Condition Age at Onset Recorded Date/T fred father Malignant neoplasm of esophagus Unknown Diabetes mellitus Unknown Myocardial infarction Unknown mother Arthritis Unknown Advance Directives No Advanced Directives Records Found Advance Directive Response Recorded Date/ Time Living Will No August 20 023 9:37pm Power of Byproducts Extractor No August 20, 2022 9:37pm Advance Directive Response Recorded Date/ Time Living Will No August 01 4:50am Power of Byproducts Extractor No August 01, 2023 4:50am Advance Directive Response Recorded Date/ Time Living Will No August 01 7:34am Power of Byproducts Extractor No August 01, 2023 7:34am Chief Complaint and Reason for Visit Chief Complaint CP Chief Complaint CP TOBACCO ABUSE GREATER THAN 30 YEARS Chief Complaint LEFT SHOULDER Reason for Visit Impingement of left shoulder Impingement of right shoulder Left shoulder pain Chief Complaint LEFT SHOULDER OVERDUE FOR OV/PREV DN PT CP CHEST PAIN Reason for Visit Impingement of left shoulder Impingement of right shoulder Left shoulder pain Essential hypertension History of coronary artery stent placement HLD (hyperlipidemia) Paroxysmal atrial fibrillation Angina at rest 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 Chest pain [id number] Essential hypertension History of coronary artery stent placement HLD (hyperlipidemia) Chief Complaint LEFT SHOULDER OVERDUE FOR OV/PREV DN PT CP CHEST PAIN CHEST PAIN CHEST PAIN CHEST PAIN CHEST PAIN Reason for Visit Impingement of left shoulder Impingement of right shoulder Left shoulder pain Essential hypertension History of coronary artery stent placement HLD (hyperlipidemia) Paroxysmal atrial fibrillation Angina at rest 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 Chest pain [id number] Essential hypertension History of coronary artery stent placement HLD (hyperlipidemia) Paroxysmal atrial fibrillation Additional Source Comments (unrecognized sect ion and content) No Status Records FoundNo Status Records FoundNo Status Records FoundNo Status Records FoundNo Status Records Found INFORMATION SOURCE (unrecogn ized section and content) DATE CREATED AUTHOR 01/25/2021 [facility] DATE CREATED AUTHOR AUTHOR'S ORGANIZ ATION 03/27/2021 [facility] DATE CREATED AUTHOR AUTHOR'S ORGANIZ ATION 08/03/2021 [facility] DATE CREATED AUTHOR AUTHOR'S ORGANIZ ATION 01/25/2022 [facility] DATE CREATED AUTHOR AUTHOR'S ORGANIZ ATION 07/15/2024 [facility] Source Comments (unrecognize d section and content) In the event this informatio n is protected by the Federal Confidentiality of Alcohol and Drug Abuse Patient Records regulations: The Federal rules restrict any use of the information to criminally investigate or prosecute any alcohol or drug abuse patient.[facility] the event this information is protected by the Federal Confidentiality of Alcohol and Drug Abuse Patient Records regulations: The Federal rules restrict any use of the information to criminally investigate or prosecute any alcohol or drug abuse patient.[facility] Hospital[facility] the event this information is protected by the Federal Confidentiality of Alcohol and Drug Abuse Patient Records regulations: The Federal rules restrict any use of the information to criminally investigate or prosecute any alcohol or drug abuse patient.[facility] the event this information is protected by the Federal Confidentiality of Alcohol and Drug Abuse Patient Records regulations: The Federal rules restrict any use of the information to criminally investigate or prosecute any alcohol or drug abuse patient.[facility] Care Teams (unrecognized sec tion and content) Palliative Care Coordinator Relationship Specialty Start Date End Date Michael De Jesus MD [address] [facility] [place] [address] PCP - General Internal Medicine 12/04/20 Palliative Care Coordinator Relationship Specialty Start Date End Date Michael De Jesus MD [address] [place] [address] PCP - General Internal Medicine 12/04/20 Palliative Care Coordinator Relationship Specialty Start Date End Date Michael De Jesus MD [address] [place] [place], [place] [id number] PCP - General Internal Medicine 12/04/20 Palliative Care Coordinator Relationship Specialty Start Date End Date Michael De Jesus MD [address] [place] [place], [place] [id number] PCP - General Internal Medicine 12/04/20 Team Status: Active Member Role Status Dates Dr. Michael De Jesus MD Family Provider Active Dr. Michael De Jesus MD Primary Care Provider Active Team Status: Inactive Member Role Status Dates Dr. Michael De Jesus MD Primary Care Provider Active Dr. Jeffery Kiser MD Emergency Provider Active Team Status: Active Member Role Status Dates Dr. Michael De Jesus MD Family Provider Active CHOCO Hu Primary Care Provider Active Team Status: Inactive Member Role Status Dates Dr. Michael De Jesus MD Primary Care Provider Active Dr. Jeffery Kiser MD Attending Provider, Emergency Pr ovider Active Team Status: Inactive Member Role Status Dates [facility] Hu Primary Care Provi ole, Attending Provider, Referring Provider Active Team Status: Active Member Role Status Dates CH[facility] Hu Primary Care Provi ole, Attending Provider, Referring Provider Active Team Status: Active Member Role Status Dates Dr. Michael De Jesus MD Family Provider Active Marylu Mckoy DO Primary Care Provider Active Team Status: Inactive Member Role Status Dates Marylu Mckoy DO Primary Care Provider, Referring Provider Active Raudel Mayes MD Attending Provider Active Team Status: Inactive Member Role Status Dates Marylu Mckoy DO Primary Care Provider, Attending Provider Active Team Status: Inactive Member Role Status Dates Marylu Mckoy DO Primary Care Provider, Referring Provider Active Caryl Espinoza FIELD RECRUITER, FIELD RECRUITER-C Attending Provider Active Team Status: Active Member Role Status Dates Marylu Demetrius Leelee , DO Primary Care Provider Active Dr. Stan Mayers MD Emergency Provider Active Dr. Marcie London MD Attending Provider Active Team Status: Active Member Role Status Dates Marylu Baer , DO Primary Care Provider Active Dr. Stan Mayers MD Emergency Provider Active Dr. Marcie London MD Admit Provider, Attending Prov ider Active Team Status: Active Member Role Status Dates Marylu Demetrius Baleonel DO Primary Care Provider Active Dr. Stan Mayers MD Emergency Provider Active Dr. Marcie London MD Admit Provider, Other Provider Active Dr. Marcell Snow MD Other Provider Active Dr. James Miller MD Other Provider Active Dr. Tomeka Garcia MD Attending Provider Active Team Status: Active Member Role Status Dates Marylu Demetrius Leelee DO Primary Care Provider Active Dr. Stan Mayers MD Emergency Provider Active Dr. Marcie London MD Admit Provider, Other Provider Active Dr. Marcell Snow MD Attending Provider, Other Provider Active Dr. James Miller MD Other Provider Active Dr. Tomeka Garcia MD Other Provider Active Team Status: Active Member Role Status Arsh Martinezistin Demetrius Leelee DO Primary Care Provider Active Dr. Stan Mayers MD Emergency Provider Active Dr. Marcie London MD Admit Provider, Other Provider Active Dr. Marcell Snow MD Other Provider Active Dr. James Miller MD Other Provider Active Dr. Tomeka Garcia MD Attending Provider, Other Provid er Active Team Status: Inactive Member Role Status Dates Marylu Demetrius OhLeelee , DO Primary Care Provider Active Dr. Stan Mayers MD Emergency Provider Active Dr. Marcie London MD Admit Provider, Other Provider Active Dr. Marcell Snow MD Attending Provider Active Dr. James Miller MD Other Provider Active Dr. Tomeka Garcia MD Other Provider Active Reason for Visit (unrecogniz ed section and content) Reason Comments Pain Reason Comments Refill Request Goals (unrecognized section and content) Goals may be documented in a n alternate sectionGoals may be documented in an alternate sectionGoals may be documented in an alternate sectionGoals may be documented in an alternate sectionGoals may be documented in an alternate section FOR RECORDS PERTAINING TO PATIENTS WHO ARE OR HAVE BEEN ENROLLED IN A CHEMICAL DEPENDENCY/SUBSTANCEABUSE PROGRAM, SOME INFORMATION MAY BE OMITTED. This clinical summary was aggregated from multiple sources. Caution should be exercised in using it in the provision of clinical care. This summary normalizes information from multiple sources, and as a consequence, information in this document may materially change the coding, format and clinical context of patient data. In addition, data may be omitted in some cases. CLINICAL DECISIONS SHOULD BE BASED ON THE PRIMARY CLINICAL RECORDS. [email or web address] [facility]. provides no warranty or guarantee of the accuracy or completeness of information in this document.
--- NOTE | 2025-07-01 06:51 | EDS_ITS ---
HPI History of Present Illness Chief Complaint: Other, Pain/Inj Narrative Narrative: Patient was seen and examined after presenting to ED for right neck and shoulder pain he states it feels tight so no signs of discomfort no trauma unsure if he slept on it and a compromising position. [facility] Medical History Atherosclerotic heart disease of [place] coronary artery with angina pectoris Impingement of left shoulder Impingement of right shoulder Essential hypertension Erectile dysfunction Hypokalemia Atherosclerosis of [place] coronary artery of [place] heart without angina pectoris Paroxysmal atrial fibrillation History of non-ST elevation myocardial infarction (NSTEMI) (09/14/18) Tobacco use Herniated disc HLD (hyperlipidemia) DM2 (diabetes mellitus, type 2) Depression Chronic pain Home Medications ?Medication ?Instructions ?Recorded ?Last Taken ?Type aspirin 81 mg tablet,delayed 81 mg PO DAILY #90 tabs 0 07/29/23 Unknown Rx release brexpiprazole 0.5 mg tablet 1 mg PO DAILY 07/29/23 Unk nown History (Rexulti) nitroglycerin 0.4 mg sublingual 0.4 mg sublingual Q5M PRN 07/29/23 Unknown Rx tablet Cardiac/Chest Pain #1 BOTTLE omeprazole 20 mg capsule,delayed 20 mg PO DAILY Unknown History release empagliflozin 25 mg-linagliptin 5 1 tab PO DAILY 08/01 Unknown History mg tablet (Glyxambi) meloxicam 15 mg tablet 15 mg PO DAILY 08/01/23 Unkn own History cyclobenzaprine 10 mg tablet 10 mg PO TID PRN Muscle S pasm #15 04/04/24 Unknown Rx TABLETS oxycodone-acetaminophen 5 mg-325 1 tab PO Q6H PRN pain 3 days #12 04/04/24 Unknown Rx mg tablet (Percocet) tabs clopidogrel 75 mg tablet (Plavix) 75 mg PO DAILY #90 t abs 07/28/24 Unknown Rx rosuvastatin 20 mg tablet (Crestor) 20 mg PO DAILY #90 tabs 07/28/24 Unknown Rx sildenafil 100 mg tablet 50 mg (1/2 x 100 mg) PO BRODIE Y PRN 07/28/24 Unknown Rx sexual activity (pt no longer using nitroglycerin) #30 tabs cyclobenzaprine 10 mg tablet 10 mg PO TID PRN Muscle S pasm #20 07/01/25 Unknown Rx TABLETS Allergy/AdvReac Type Severity Reaction Status Date / Time pregabalin (From Lyrica) AdvReac Itching Verified 07/01/25 05:07 Family History Father Esophageal cancer Diabetes Myocardial infarction Mother Arthritis Diabetes Surgical History History of coronary artery stent placement (02/13/19) History of back surgery History of arthroscopic knee surgery s/p back H/O arthroscopic knee surgery Social History household members: spouse Smoking Status: Current every day smoker tobacco type: cigarettes Tobacco: How many years used: 30 alcohol intake: current alcohol intake frequency: a few times a week Alcohol type: beer substance use type: does not use what type of physical activity do you participate in: none ROS ROS ED ROS Narrative Pertinent Positives: Right sided neck and upper back and shoulder pain Pertinent Negatives: Fevers chills vomiting numbness tingling The remainder of review of systems negative unless otherwise stated in the HPI above. Systems reviewed including constitutional, psychiatric, cardiovascular, respiratory, integument, HENT, gastrointestinal. EXAM Physical Exam Narrative Exam Narrative: Afebrile hemodynamically stable does not appear toxic or in distress, cephalic atraumatic normal range of motion of his head and neck tenderness overlying the cervical paraspinal structures nothing overlying the midline no step-off deformities nothing going down the thoracic or lumbar spine he has reproducible pain as well on palpation of his upper trapezius muscle there on the right no overlying skin changes or vesicular lesions erythema no crepitus he has full strength in his extremities. He has intact MSPs compartments are soft his skin is warm and well-perfused Const Vital Signs: 07/01/25 05:06 07/01/25 05:06 Temperature 98 F Temperature Source Oral Pulse Rate 87 Respiratory Rate 17 Respiratory Effort Normal Respiratory Pattern Normal Blood Pressure 154/89 H Blood Pressure Mean 110 Pulse Ox 98 Oxygen Delivery Method Room Air MDM MDM MDM Narrative Medical decision making narrative: Nursing notes, triage notes, available previous documentation, and vital signs were reviewed. Any discrepancies noted were addressed. Differential Diagnoses: Not meningitis not cellulitis or necrotizing process no evidence of compartment syndrome B shoulder impingement syndrome with some cervical muscle spasms Interventions: Toradol Valium morphine Zofran Labs Reviewed: Not clinically indicated Imaging Reviewed: Not clinically indicated Previous Documentation Reviewed: None available or applicable at this time. ED Course: Patient presenting with symptoms as described above seems to be more musculoskeletal in nature with upper trapezius muscle and right paracervical spinal muscle spasms in the shoulder impingement syndrome patient has been given medications for analgesia we will reassess. 0719: On reevaluation patient appears to be doing better so return precautions follow-up recommendations provided he is stable for discharge with the medications as prescribed This note was made utilizing voice recognition software. All attempts were made to correct spelling or other errors prior to note completion. However, due to the fast-paced nature of emergency medicine, some errors may still be present. Discharge Plan Triage Chief Complaint: Other, Pain/Inj ED Provider: Traci Castellon Dx/Rx/DC Orders Clinical Impression: Cervical paraspinal muscle spasm, Spasm of right trapezius muscle, Impingement of right shoulder Instructions: ED Muscle Spasm Prescriptions: New cyclobenzaprine 10 mg tablet 10 mg PO TID PRN (Reason: Muscle Spasm) Qty: 20 0RF No Action omeprazole 20 mg capsule,delayed release(DR/EC) 20 mg PO DAILY Rexulti 0.5 mg tablet 1 mg PO DAILY nitroglycerin 0.4 mg tablet, sublingual 0.4 mg sublingual Q5M PRN (Reason: Cardiac/Chest Pain) Qty: 1 3RF aspirin 81 mg tablet,delayed release (DR/EC) 81 mg PO DAILY Qty: 90 3RF Glyxambi 25-5 mg tablet 1 tab PO DAILY meloxicam 15 mg tablet 15 mg PO DAILY Patient Comments: take 1 tablet by mouth once daily cyclobenzaprine 10 mg tablet 10 mg PO TID PRN (Reason: Muscle Spasm) Qty: 15 0RF oxycodone-acetaminophen [Percocet] 5-325 mg tablet 1 tab PO Q6H PRN (Reason: pain) 3 Days Qty: 12 0RF rosuvastatin [Crestor] 20 mg tablet 20 mg PO DAILY Qty: 90 3RF sildenafil 100 mg tablet 50 mg PO DAILY PRN (Reason: sexual activity (pt no longer using nitrogl ycerin)) Qty: 30 6RF Rx Instructions: administer 30 minutes to 4 hours before activity clopidogrel [Plavix] 75 mg tablet 75 mg PO DAILY Qty: 90 3RF Primary Care Provider: Flori Mckoy Referrals: Flori Mckoy, DO [Primary Care Provider, Family Practice] Activity Restrictions/Additional Instructions: Do not drive or operate heavy machinery or climb heights while on muscle relaxer follow-up with your doctor you can always return if getting worse Print Language: Kazakh Disposition Disposition: Home, Self Care
[2025-07-01 07:26] VITALS: BP 141/89; PULSE 80; RESP 15; TEMP 37.1; O2SAT 97
== END 2025-07-01 07:34 | disposition home or self-care (01) ==
PROVIDERS: Emergency Provider Specialist/Technologist Athletic Trainer; PCP Family Medicine; Visit Provider Specialist/Technologist Athletic Trainer
DX: M62.838 Other muscle spasm (principal); M25.811 Other specified joint disorders, right shoulder; X58.XXXA Exposure to other specified factors, initial encounter; F17.210 Nicotine dependence, cigarettes, uncomplicated
CPT/HCPCS: 96372; 99282